=== PATIENT | male | born 1945 | race Caucasian/White ===

== ENCOUNTER 2016-01-11 15:39 | Inpatient (IN) | payer OTHER, MEDICARE ==
[2016-01-11] VITALS (10 sets, daily range): BP systolic 116–195; BP diastolic 62–121; PULSE 106–125; RESP 16–26; TEMP 99.5–100.9; O2SAT 95–97
[~2016-01-11] VITALS: Ht 180.3 cm; Wt 53.6 kg
[~2016-01-11 15:39] MED LIST: COLA100C PO; GLIP5 PO; LORTA5 PO; LOSA100T PO; OMEP20TA PO; PRAV40TA PO
[2016-01-11] MEDS ORDERED: SODIUM CHLOR 0.9% 1000 ML INJ 1,000 ML IV ONE ×2 (15:55)
[2016-01-11] MEDS ORDERED: SODIUM CHLOR 0.9% 1000 ML INJ 100 ML IV ONE (15:55)
[2016-01-11] MEDS ORDERED: ACETAMINOPHEN 325 MG TAB PO ONE (16:00)
--- NOTE | 2016-01-11 16:08 | PD ---
HPI Chief Complaint: Fever Time Seen by Provider: 16:01 Travel History International Travel<30 days: No Contact w/Intl Traveler<30days: No Traveled to known affect area: No History of Present Illness HPI 70-year-old male with history of DM, GERD, neurogenic bladder presents to the ED via EMS for evaluation of fever and hyperglycemia. Patient states his blood sugar was 500 today. He states that he took "80 units" of insulin around 7 AM. Patient denies fever, chills, headache, dizziness, chest pain, palpitations, cough, abdominal pain, nausea, vomiting, diarrhea or constipation, dysuria or back pain. He denies weakness or pain of the extremities. Patient states that he is ambulatory with a walker. Per EMS report the patient was found lying on the floor of his bathroom by a neighbor yesterday. The neighbor reported that the patient said that he was tired so he laid down to rest. Per EMS report the patient temp was 102 orally on their arrival. He received a liter of IV fluids en route. PFSH Past Medical History Cardiovascular Problems: Yes High Cholesterol: Yes Diabetes: Yes GERD: Yes Genitourinary: Yes (NEUROGENIC BLADDER - PT FOR SELF CATH FOR URINE) Hypertension: Yes Musculoskeletal: No Neurologic: No Social History Alcohol Use: No Tobacco Use: Yes (1 PPD) Substance Use: No Allergies-Medications (Allergen,Severity, Reaction): Coded Allergies: No Known Allergies (Verified , 01/11/16) Reported Meds & Prescriptions Reported Meds & Active Scripts Active Reported Losartan (Losartan Potassium) 100 Mg Tab 100 Mg PO DAILY Review of Systems Except as stated in HPI: all other systems reviewed are Neg Physical Exam Narrative GENERAL: Well-nourished, well-developed stoic white male in no acute distress. SKIN: Warm and dry. HEAD: Normocephalic. Atraumatic. No bony step-offs. No tenderness to palpation of the facial bones. EYES: No scleral icterus. No injection or drainage. PERRLA. EOMI. ENT: Pearly woodard tympanic membrane is bilaterally. Nasal mucosa is moist. Oropharynx without erythema, edema or exudate. NECK: Supple, trachea midline. No JVD or lymphadenopathy. No midline tenderness to palpation. Patient retains full, active, painless range of motion of the neck. CARDIOVASCULAR: Regular rate and rhythm without murmurs, gallops, or rubs. 2+ DP and radial pulses bilaterally. RESPIRATORY: Breath sounds clear and equal bilaterally. No accessory muscle use. GASTROINTESTINAL: Abdomen soft, non-tender, nondistended. + Bowel sounds. No palpable masses. Patient is guarding voluntarily. MUSCULOSKELETAL: No cyanosis. 2+ edema of the right leg to the knee. Homans sign positive on the right. Patient also has a small fluid collection just superior to the left knee. No tenderness to palpation of the joint. No limitations to range of motion of the right knee. NEUROLOGICAL: Awake and alert x 5. Cranial nerves II through XII intact. Motor and sensory grossly within normal limits. 5/5 strength in all muscle groups. Normal speech. BACK: Nontender without obvious deformity. No CVA tenderness. No midline tenderness. Data Data Last Documented VS Vital Signs Date Time Temp Pulse Resp B/P Pulse Ox O2 Delivery O2 Flow Rate FiO2 01/11/16 16:04 100.9 01/11/16 16:01 124 24 195/87 95 Room Air 01/11/16 16:00 2.0 Orders Electrocardiogram (01/11/16 15:55) Complete Blood Count With Diff (01/11/16 15:55) Comprehensive Metabolic Panel (01/11/16 15:55) Prothrombin Time / Inr (Pt) (01/11/16 15:55) Act Partial Throm Time (Ptt) (01/11/16 15:55) Lactic Acid Sepsis Protocol (01/11/16 15:55) Magnesium (Mg) (01/11/16 15:55) Lipase (01/11/16 15:55) Ckmb (Isoenzyme) Profile (01/11/16 15:55) Troponin I (01/11/16 15:55) Urinalysis - C+S If Indicated (01/11/16 15:55) Blood Culture (01/11/16 15:55) Chest, Single Ap (01/11/16 15:55) Blood Glucose (01/11/16 15:55) Ecg Monitoring (01/11/16 15:55) Iv Access Insert/Monitor (01/11/16 15:55) Oximetry (01/11/16 15:55) Oxygen Administration (01/11/16 15:55) Acetaminophen (Tylenol) (01/11/16 16:00) Sodium Chlor 0.9% 1000 Ml Inj (Ns 1000 M (01/11/16 15:55) Sodium Chlor 0.9% 1000 Ml Inj (Ns 1000 M (01/11/16 15:55) Sodium Chlor 0.9% 1000 Ml Inj (Ns 1000 M (01/11/16 15:55) Knee, Complete (4vws) (01/11/16 15:55) Us Leg Venous Doppler (01/11/16 16:00) Vancomycin Inj (Vancomycin Inj) (01/11/16 16:09) Piperacil-Tazo 3.375 Gm Premix (Zosyn 3. (01/11/16 16:15) CKMB (01/11/16 16:00) CKMB% (01/11/16 16:00) Arterial Blood Gas (Abg) (01/11/16 ) Beta Hydroxybutyrate (Acetone) (01/11/16 17:23) Calcium Carbonate (Oscal) (01/11/16 18:30) Urinary Catheter Insert/Apply (01/11/16 18:27) Admit Order (Ed Use Only) (01/11/16 18:46) Admit To Inpatient (01/11/16 ) Vital Signs (Adult) Q4H (01/11/16 18:44) Sodium Chlor 0.9% 1000 Ml Inj (Ns 1000 M (01/11/16 18:44) Sodium Chloride 0.9% Flush (Ns Flush) (01/11/16 18:45) Sodium Chloride 0.9% Flush (Ns Flush) (01/11/16 21:00) Acetaminophen (Tylenol) (01/11/16 18:45) Bisacodyl Supp (Dulcolax Supp) (01/11/16 18:45) Magnesium Hydroxide Liq (Milk Of Magnesi (01/11/16 18:45) Complete Blood Count With Diff (01/12/16 06:00) Resp Oxygen Jorge C Titrat 1-4 L (01/11/16 ) Pt Request For Service (01/11/16 18:44) Heparin Inj (Heparin Inj) (01/11/16 20:00) Naloxone Inj (Narcan Inj) (01/11/16 18:45) Inpatient Certification (01/11/16 ) Cefepime Inj (Maxipime Inj) (01/11/16 20:00) Piperacil-Tazo 2.25 Gm Premix (Zosyn 2.2 (01/11/16 22:00) Labs Laboratory Tests Test 01/11/16 01/11/16 01/11/16 16:00 18:04 18:45 White Blood Count 27.6 TH/MM3 Red Blood Count 3.85 MIL/MM3 Hemoglobin 11.6 GM/DL Hematocrit 34.4 % Mean Corpuscular Volume 89.5 FL Mean Corpuscular Hemoglobin 30.1 PG Mean Corpuscular Hemoglobin 33.6 % Concent Red Cell Distribution Width 13.6 % Platelet Count 244 TH/MM3 Mean Platelet Volume 9.4 FL Neutrophils (%) (Auto) % Lymphocytes (%) (Auto) % Monocytes (%) (Auto) % Eosinophils (%) (Auto) % Basophils (%) (Auto) % Neutrophils # (Auto) TH/MM3 Lymphocytes # (Auto) TH/MM3 Monocytes # (Auto) TH/MM3 Eosinophils # (Auto) TH/MM3 Basophils # (Auto) TH/MM3 CBC Comment AUTO DIFF Differential Total Cells 100 Counted Neutrophils % (Manual) 88 % Band Neutrophils % 3 % Lymphocytes % 1 % Monocytes % 8 % Neutrophils # (Manual) 25.1 TH/MM3 Differential Comment FINAL DIFF MANUAL Platelet Estimate NORMAL Platelet Morphology Comment NORMAL Red Cell Morphology Comment NORMAL Prothrombin Time 11.6 SEC Prothromb Time International 1.0 RATIO Ratio Activated Partial 23.5 SEC Thromboplast Time Sodium Level 137 MEQ/L Potassium Level 3.7 MEQ/L Chloride Level 101 MEQ/L Carbon Dioxide Level 20.7 MEQ/L Anion Gap 15 MEQ/L Blood Urea Nitrogen 84 MG/DL Creatinine 3.55 MG/DL Estimat Glomerular Filtration 17 ML/MIN Rate Random Glucose 361 MG/DL Lactic Acid Level 1.8 mmol/L Calcium Level 8.2 MG/DL Magnesium Level 2.5 MG/DL Total Bilirubin 0.5 MG/DL Aspartate Amino Transf 50 U/L (AST/SGOT) Alanine Aminotransferase 54 U/L (ALT/SGPT) Alkaline Phosphatase 103 U/L Total Creatine Kinase 573 U/L Creatine Kinase MB 2.4 NG/ML Creatine Kinase MB % 0.4 % Troponin I 0.07 NG/ML Total Protein 7.4 GM/DL Albumin 2.1 GM/DL Lipase 99 U/L B-Hydroxybutyrate 0.24 MMOL/L Blood Gas Puncture Site LT RADIAL Blood Gas Patient Temperature 98.6 Blood Gas HCO3 19 mmol/L Blood Gas Base Excess -4.6 mmol/L Blood Gas Oxygen Saturation 94 % Arterial Blood pH 7.45 Arterial Blood Partial 27 mmHg Pressure CO2 Arterial Blood Partial 94 mmHG Pressure O2 Arterial Blood Oxygen Content 13.4 Vol % Arterial Blood 1.9 % Carboxyhemoglobin Arterial Blood Methemoglobin 1.7 % Blood Gas Hemoglobin 10.1 G/DL Oxygen Delivery Device ROOM AIR Blood Gas Inspired Oxygen 21 % Urine Color YELLOW Urine Turbidity HAZY Urine pH 6.0 Urine Specific Winkelman 1.015 Urine Protein 100 mg/dL Urine Glucose (UA) 300 mg/dL Urine Ketones NEG mg/dL Urine Occult Blood MOD Urine Nitrite NEG Urine Bilirubin NEG Urine Urobilinogen LESS THAN 2.0 MG/DL Urine Leukocyte Esterase MOD Urine RBC 7 /hpf Urine WBC 38 /hpf Urine Squamous Epithelial <1 /hpf Cells Urine Bacteria MANY /hpf Urine Mucus FEW /lpf Microscopic Urinalysis Comment CATH-CULTURE IND MDM Medical Decision Making Medical Screen Exam Complete: Yes Emergency Medical Condition: Yes Differential Diagnosis Hyperglycemia versus DKA versus sepsis versus UTI versus pneumonia versus dehydration versus electrolyte abnormality versus DVT versus other Narrative Course 70-year-old male with history of DM, GERD, neurogenic bladder presents to the ED via EMS for evaluation of fever and hyperglycemia. Patient states his blood sugar was 500 today. He states that he took "80 units" of insulin around 7 AM. Patient denies fever, chills, headache, dizziness, chest pain, palpitations, cough, abdominal pain, nausea, vomiting, diarrhea or constipation, dysuria or back pain. He denies weakness or pain of the extremities. Patient states that he is ambulatory with a walker. Patient temp 100.9 orally, pulse 125, BP 151/ 121, respiratory rate 24, O2 sats 95%, blood glucose 374 on arrival. Physical exam reveals a chronically ill-appearing stoic white male in no acute distress. Chest clear to auscultation bilaterally. Regular rate and rhythm without appreciable/R/G. Equal pulses in the extremities bilaterally. Abdomen is soft and nondistended. The patient is voluntarily guarding and denies tenderness. There is 2+ edema of the right leg to the knee with positive Homans sign. There is a small fluid collection just superior to the left patella. No tenderness or limitations ROM. The patient is awake, alert, oriented. No focal neural deficits. Normal speech. 5/5 strength. No CVA tenderness. IV fluids were initiated according to sepsis protocol. Patient was administered vancomycin and Zosyn. CBC: WBC 27.6. Hgb 11.6. INR 1.0. Lactic acid: 1.8. CMP: BUN 84, creatinine 3.55. Estimated GFR 17. Calcium 8.2. Replenished orally. Lipase: 99 UA: Moderate occult blood, moderate leukocyte Estrace, 38 WBCs, many bacteria Cardiac enzymes: CK-MB 0.4. Troponin 0.07. EKG rate 106, sinus rhythm. Normal intervals. Normal axis. No ischemic changes. Reviewed by Dr. Gomez. D-dimer: pending Beta hydroxybutyrate: 0.24. Recheck blood glucose: 266 after 3 L NS. Potassium 3.7 ABG: Chronic respiratory alkalosis with metabolic anthony acidosis Chest x-ray shows no acute cardiopulmonary disease. Evidence of old fracture of the left clavicle and left anterior third rib. X-ray of the right knee revealed a small joint effusion. Ultrasound of the right lower extremity: Nonocclusive thrombus in the popliteal vein and perineal tributary. Questionable fluid collection surrounding the femoral bypass graft, CTA recommended. However, given the patient's elevated creatinine the radiopaque dye could cause further injury to the kidney. Vitals improved on recheck. This patient meets severe sepsis criteria. He'll be admitted to the medicine service for further evaluation. I discussed this plan of care with the patient and he is amenable. I spoke with Dr. Monson who agrees to accept the patient to the medicine service. Please see the medicine notes for disposition. Sepsis Criteria SIRS Criteria (2 or more): Temp > 100.9 or < 96.8, Heart rate over 90, RR > 20 or PaCO2 < 32, WBC > 64785, < 4000 or > 10% bands Sepsis Criteria (SIRS+source): Infect source susp/known Severe Sepsis (+one): Acute Oliguria/Renal Failure Criteria Outcome: Meets SIRS criteria, Meets sepsis criteria, Meets severe sepsis criteria Diagnosis Primary Impression: Severe sepsis Additional Impressions: Leukocytosis Qualified Code: D72.829 - Leukocytosis, unspecified type Acute kidney injury Chronic respiratory alkalosis Metabolic acidosis, increased anion gap DVT (deep venous thrombosis) Qualified Code: I82.431 - Deep vein thrombosis (DVT) of popliteal vein of right lower extremity, unspecified chronicity Urinary tract infection Qualified Code: N39.0 - Urinary tract infection with hematuria, site unspecified Admitting Information Admitting Physician Requests: Admit Mandi Garcia Jan 11, 2016 16:08
[2016-01-11] MEDS ORDERED: VANCOMYCIN INJ 1,000 MG in SODIUM CHLOR 0.9% 250 ML INJ 250 ML IV STA (16:09)
[2016-01-11] MEDS ORDERED: PIPERACIL-TAZO 3.375 GM PREMIX 50 ML IV ONE (16:15)
[2016-01-11 16:27] LABS: HEMATOCRIT 34.4 % (39.0-51.0); MEAN CELL VOLUME 89.5 FL (80.0-100.0); MEAN CORPUSCULAR HEMOGLOBIN 30.1 PG (27.0-34.0); MEAN CORPUSCULAR HGB CONC 33.6 % (32.0-36.0); PLATELET COUNT 244 TH/MM3 (150-450); RED BLOOD COUNT 3.85 MIL/MM3 (4.50-5.90); RED CELL DISTRIBUTION WIDTH 13.6 % (11.6-17.2); WHITE BLOOD COUNT 27.6 TH/MM3 (4.0-11.0)
[2016-01-11 16:28] LABS: HEMO FLAGS AUTO DIFF
[2016-01-11 16:36] LABS: APTT (PATIENT) 23.5 SEC (24.3-30.1); PROTHROMBIN TIME - PATIENT 11.6 SEC (9.8-11.6)
[2016-01-11 16:59] LABS: BANDS 3 % (0-6); NEUTROPHIL # MANUAL DIFF 25.1 TH/MM3 (1.8-7.7); PLATELET ESTIMATE SMEAR NORMAL (NORMAL); PLATELET MORPHOLOGY NORMAL (NORMAL); POLYS (SEG NEUTROPHILS) 88 % (16-70); SCAN/DIFF FINAL DIFF MANUAL; WBC DIFF SAMPLE 100
--- NOTE | 2016-01-11 17:02 | RADRPT ---
EXAM DATE/TIME: 01/11/2016 16:40 [facility] COMPARISON: No previous studies available for comparison. INDICATIONS : Pain, fever, and shortness of breath. MEDICAL HISTORY : Diabetes mellitus type II. SURGICAL HISTORY : ENCOUNTER: Initial ACUITY: 2 weeks PAIN SCORE: 4/10 LOCATION: Bilateral chest FINDINGS: The lungs are clear without infiltrate, nodule, or mass. There is no appreciable pleural effusion fo r technique. Heart and mediastinum are unremarkable. There is old healed left clavicular fracture an d probable old healed fracture of the right anterior third rib. CONCLUSION: No acute cardiopulmonary disease. Jessica Blackburn MD on January 11, 2016 at 16:59 Board Certified Radiologist. This report was verified electronically.
[2016-01-11 17:03] LABS: ALT (GPT) 54 U/L (12-78); ANION GAP 15 MEQ/L (5-15); AST (GOT) 50 U/L (15-37); BICARBONATE 20.7 MEQ/L (21.0-32.0); BLOOD UREA NITROGEN 84 MG/DL (7-18); CHLORIDE 101 MEQ/L (98-107); GLOMERULAR FILTRATION RATE 17 ML/MIN (>89); MAGNESIUM 2.5 MG/DL (1.5-2.5); POTASSIUM 3.7 MEQ/L (3.5-5.1); SODIUM (NA) 137 MEQ/L (136-145)
[2016-01-11 17:04] LABS: ALKALINE PHOSPHATASE 103 U/L (45-117); CREATINE KINASE 573 U/L (39-308); TOTAL BILIRUBIN ADULT 0.5 MG/DL (0.2-1.0)
--- NOTE | 2016-01-11 17:05 | RADRPT ---
EXAM DATE/TIME: 01/11/2016 16:43 [facility] COMPARISON: No previous studies available for comparison. INDICATIONS : Pain and swelling. MEDICAL HISTORY : Diabetes mellitus type II. SURGICAL HISTORY : Stent. ENCOUNTER: Initial ACUITY: 2 weeks PAIN SCORE: 4/10 LOCATION: Right knee. FINDINGS: No definite fractures, dislocations, lytic, or sclerotic lesions are seen. Chronic atherosclerotic ca lcifications are seen involving the visualized arteries with a stent within the superficial femoral a rtery. Small joint effusion is seen with a spur at the attachment site of the quadriceps tendon on th e patella. CONCLUSION: Small joint effusion. Jessica Blackburn MD on January 11, 2016 at 17:02 Board Certified Radiologist. This report was verified electronically.
[2016-01-11 17:18] LABS: CKMB 2.4 NG/ML (0.5-3.6)
[2016-01-11] MEDS ORDERED: LOSA100T PO ×2 (18:08→20:43)
[2016-01-11 18:14] LABS: BLOOD GAS BASE EXCESS -4.6 mmol/L (-2-2); BLOOD GAS CARBOXYHEMOGLOBIN 1.9 % (0-4); BLOOD GAS HCO3 19 mmol/L (22-26); BLOOD GAS METHEMOGLOBIN 1.7 % (0-2); BLOOD GAS O2 HGB SATURATION 94 % (90-100); BLOOD GAS OXYGEN CONTENT 13.4 Vol % (12.0-20.0); BLOOD GAS PCO2 27 mmHg (38-42); BLOOD GAS PO2 94 mmHG (61-120); BLOOD GAS TOTAL HGB 10.1 G/DL (12.0-16.0); CRITICAL VALUE NO; DRAW SITE LT RADIAL; FIO2 21 %; NUMBER OF ARTERIAL PUNCTURES 2; OXYGEN DEVICE ROOM AIR; STAT YES; TEMP CORR TO 98.6
--- NOTE | 2016-01-11 18:19 | RADRPT ---
EXAM DATE/TIME: 01/11/2016 17:13 [facility] COMPARISON: CT ABDOMEN & PELVIS W/O CONTRAST, September 25, 2014, 18:26. INDICATIONS : Right leg pain. MEDICAL HISTORY : Hypercholesterolemia. Hypertension. Gastroesophageal reflux disease. Neurogenic bladder. Diabetes. SURGICAL HISTORY : Right leg arterial stent. ENCOUNTER: Initial ACUITY: 3 days PAIN SCORE: 4/10 LOCATION: Right leg. COMPLETE APPROPRIATE ITEMS PRE PROCEDURE: ID x 2: Complete NameDate of BirthEducation: Nurse/Technologist explained procedure to patient/fami ly. Patient/family demonstrated understanding of procedure. TECHNIQUE: Venous ultrasound of the leg was performed from the inguinal ligament to the proximal calf. Real-chong e, color Doppler and spectral tracing, compression and augmentation techniques were used. FINDINGS: The popliteal and peroneal veins are incompletely compressible but there is preserved venous flow thr ough both areas. More central portions of the deep venous system are sonographically normal. There is an unusual appearance to the vascularity in the right groin region. Patient appears to have a central covered stent or graft surrounded by either a thrombosed aneurysm or regional fluid. I have no prior cross-sectional images for comparison. CONCLUSION: 1. Nonocclusive thrombus in the popliteal vein and peroneal tributary. More central venous system is sonographically normal. 2. Tube like graft/stent in the right groin region with a surrounding hypoechoic region which does no t show color Doppler flow. Diagnostic considerations include a thrombosed aneurysm treated with a cov ered stent/graft versus fluid around the regional vasculature. The latter would be concerning for pos sible perivascular infection. If patient's symptomatology is characteristic of an infectious or infla mmatory process, CTA of the pelvis would be recommended for further characterization.. Carroll Arteaga MD on January 11, 2016 at 18:09 Board Certified Radiologist. This report was verified electronically.
[2016-01-11] MEDS ORDERED: CALCIUM CARBONATE 1.25 GM (CA 500 MG) TAB PO ONE (18:30)
[2016-01-11] MEDS ORDERED: NALOXONE HCL 0.4 MG/ML AMP IV PRN (18:45)
[2016-01-11] MEDS ORDERED: MAGNESIUM HYDROXIDE SUSP 30 ML CUP PO PRN (18:45)
[2016-01-11] MEDS ORDERED: BISACODYL 10 MG SUPP PR PRN (18:45)
[2016-01-11] MEDS: SODIUM CHLOR 0.9% 1000 ML INJ 1,000 ML IV SCH (18:57)
[2016-01-11] MEDS ORDERED: Vancomycin Consult Pharmacy 1 EA OTHER SCH (19:00)
[2016-01-11] MEDS ORDERED: DEXTROSE 50% IN WATER 50 ML VIAL(D50) IV PUSH PRN (19:00)
[2016-01-11] MEDS ORDERED: GLUCAGON 1 MG/ML VIAL OTHER PRN (19:00)
--- NOTE | 2016-01-11 19:10 | HHI.HP ---
[facility] Physician Evelina Dahl MD Admission Diagnosis severe sepsis, ADONIS, respiratory alkalosis, hyperglycemia, DVT Diagnoses: (1) Sepsis Diagnosis: Principal (2) UTI (urinary tract infection) Diagnosis: Principal (3) Neurogenic bladder Diagnosis: Principal (4) Acute on chronic renal insufficiency Diagnosis: Principal (5) Rhabdomyolysis Diagnosis: Principal (6) Elevated troponin Diagnosis: Principal (7) DVT (deep venous thrombosis) Diagnosis: Principal (8) DM (diabetes mellitus) Diagnosis: Principal Travel History International Travel<30 Days: No Contact w/Intl Traveler <30 Da: No Traveled to Known Affected Are: No History of Present Illness This is a 70-year-old male with a PMH of HTN, DM, Hyperlipidemia and Neurogenic Bladder w/ Self Catheterization who was brought to the ER by EMS for c/o fever and elevated BS of 500 at home. States he checked his blood sugar at approx 7am and took 80 units of Insulin. Denies cough, nausea, vomiting, abdominal pain or diarrhea. Reports some RLE swelling which is chronic, however increased in the last 2-3 days, some right knee discomfort. Per EMS, pt was found lying on his bathroom floor by neighbors yesterday, did not seek medical attention at that time. Temp 102.0 en route to ER. On arrival, BP 151/121, HR 125, O2 sat 96% on RA, Temp 100.9. WBC 27.6 with elevated neutrophil count. Creatinine 3.55, producing 1.44 on 09/28/14. CPK 573. Troponin 0.07. U/a positive for UTI. EKG with no acute findings. CXR w/ no acute findings. Right Knee X-ray w/ small joint effusion. RLE Doppler w/ non-occlusive DVT of popliteal and peroneal tributary, tubelike graft/stent in right groin with surrounding hypoechoic region, possibly thrombosed aneurysm versus fluid around regional vasculature, CTA Pelvis recommended, however unable to proceed due to renal function. Of note, pt w/ recent hospitalization to for Sepsis, pt unable to provide many details but states his WBC count was 35 at that time. S/ p Blood/Urine Cultures x2, Vanc/Zosyn in ER. Review of Systems Other ROS: 14 point review of systems otherwise negative. Past Family Social History Past Medical History PMH: HTN, DM, Hyperlipidemia and Neurogenic Bladder w/ Self Catheterization Past Surgical History PAST SURGICAL HISTORY: RLE Stent Allergies: Coded Allergies: No Known Allergies (Verified , 01/11/16) Family History PAST FAMILY HISTORY: Reviewed. No h/o DM or CAD Social History PAST SOCIAL HISTORY: Negative for alcohol, tobacco or drugs. Physical Exam Vital Signs Vital Signs Date Time Temp Pulse Resp B/P Pulse Ox O2 Delivery O2 Flow Rate FiO2 01/11/16 19:01 106 24 120/62 95 Room Air 01/11/16 18:55 95 21 01/11/16 18:49 106 26 140/81 96 Room Air 01/11/16 18:49 99.5 01/11/16 16:04 100.9 01/11/16 16:01 124 24 195/87 95 Room Air 01/11/16 16:00 Nasal Cannula 2.0 01/11/16 16:00 95 Room Air 01/11/16 15:57 124 20 151/121 96 Room Air 01/11/16 15:46 125 23 151/121 96 Physical Exam PE: GENERAL: Thin, elderly white male in no acute distress. Slightly disheveled. HEENT: PERRLA, EOMI. No scleral icterus or conjunctival pallor. No lid lag or facial droop. CARDIOVASCULAR: Regular rate and rhythm. No obvious murmurs to auscultation. No chest tenderness to palpation. RESPIRATORY: No obvious rhonchi or wheezing. Clear to auscultation. Breath sounds equal bilaterally. GASTROINTESTINAL: Abdomen soft, non-tender, nondistended. BS normal. MUSCULOSKELETAL: RLE w/ 1-2 +pitting edema up to knee, previous healed scar, no signs of infection. Pulses intact. NEUROLOGICAL: Awake, alert and oriented x4. No focal neurologic deficits. Moving both upper and lower extremities spontaneously. Laboratory Laboratory Tests Test 01/11/16 01/11/16 16:00 18:04 White Blood Count 27.6 Red Blood Count 3.85 Hemoglobin 11.6 Hematocrit 34.4 Mean Corpuscular Volume 89.5 Mean Corpuscular Hemoglobin 30.1 Mean Corpuscular Hemoglobin 33.6 Concent Red Cell Distribution Width 13.6 Platelet Count 244 Mean Platelet Volume 9.4 Neutrophils (%) (Auto) Lymphocytes (%) (Auto) Monocytes (%) (Auto) Eosinophils (%) (Auto) Basophils (%) (Auto) Neutrophils # (Auto) Lymphocytes # (Auto) Monocytes # (Auto) Eosinophils # (Auto) Basophils # (Auto) CBC Comment AUTO DIFF Differential Total Cells 100 Counted Neutrophils % (Manual) 88 Band Neutrophils % 3 Lymphocytes % 1 Monocytes % 8 Neutrophils # (Manual) 25.1 Differential Comment FINAL DIFF MANUAL Platelet Estimate NORMAL Platelet Morphology Comment NORMAL Red Cell Morphology Comment NORMAL Prothrombin Time 11.6 Prothromb Time International 1.0 Ratio Activated Partial 23.5 Thromboplast Time Sodium Level 137 Potassium Level 3.7 Chloride Level 101 Carbon Dioxide Level 20.7 Anion Gap 15 Blood Urea Nitrogen 84 Creatinine 3.55 Estimat Glomerular Filtration 17 Rate Random Glucose 361 Lactic Acid Level 1.8 Calcium Level 8.2 Magnesium Level 2.5 Total Bilirubin 0.5 Aspartate Amino Transf 50 (AST/SGOT) Alanine Aminotransferase 54 (ALT/SGPT) Alkaline Phosphatase 103 Total Creatine Kinase 573 Creatine Kinase MB 2.4 Creatine Kinase MB % 0.4 Troponin I 0.07 Total Protein 7.4 Albumin 2.1 Lipase 99 Blood Gas Puncture Site LT RADIAL Blood Gas Patient Temperature 98.6 Blood Gas HCO3 19 Blood Gas Base Excess -4.6 Blood Gas Oxygen Saturation 94 Arterial Blood pH 7.45 Arterial Blood Partial 27 Pressure CO2 Arterial Blood Partial 94 Pressure O2 Arterial Blood Oxygen Content 13.4 Arterial Blood 1.9 Carboxyhemoglobin Arterial Blood Methemoglobin 1.7 Blood Gas Hemoglobin 10.1 Oxygen Delivery Device ROOM AIR Blood Gas Inspired Oxygen 21 Date/Time Procedure Status Source Growth 01/11/16 16:05 Aerobic Blood Culture Received Blood Peripheral Pending 01/11/16 16:05 Anaerobic Blood Culture Received Blood Peripheral Pending Result Diagram: 01/11/16 1600 01/11/16 1600 Assessment and Plan Problem List: (1) Sepsis ICD Code: A41.9 Status: Resolved (2) UTI (urinary tract infection) ICD Code: N39.0 Status: Acute (3) Neurogenic bladder ICD Code: N31.9 Status: Acute (4) Acute on chronic renal insufficiency ICD Code: N28.9 Status: Acute (5) Rhabdomyolysis ICD Code: M62.82 Status: Acute (6) Elevated troponin ICD Code: R79.89 Status: Acute (7) DVT (deep venous thrombosis) ICD Code: I82.409 Status: Acute (8) DM (diabetes mellitus) ICD Code: E11.9 Status: Chronic Assessment and Plan A/P: 1. Sepsis: Temp 102.0 in field, HR 120's, WBC 27.6, Source-UTI. CXR negative , images reviewed by me. S/p Blood/Urine Cultures, IV Vanc/Zosyn. Recent admit at for Sepsis, pt unable to provide further details, except states WBC was 35. Follow up cultures, continue IV Vanc/Cefepime. 2. UTI: U/a positive for UTI. +self catheterization. Will continue w/ IV Abx , IVF. 3. Neurogenic Bladder: Self catheterization as needed. 4. Acute on Chronic Renal Insufficiency: Creatinine 3.55, previously 1.44 on . IVF for hydration, U/a positive for UTI, continue IV Abx, repeat labs in am. 5. Rhabdomyolysis: CPK 573, IVF for hydration, check serial CPK for trend. Per EMS, pt found lying on bathroom floor by neighbor yesterday, pt denies any trauma, states he was tired and just wanted to lie down. 6. Elevated Trop: Trop 0.07, EKG w/ no acute changes. Likely secondary to worsening renal function rather than cardiac etiology, however will r/o ACS. Check serial cardiac enzymes. 7. DM: Uncontrolled. Likely due to Sepsis. Check Hgb A1c, Sliding scale w/ Accu-Cheks. 8. RLE DVT: Doppler w/ non-occlusive DVT of popliteal and peroneal tributary, started on Heparin gtt in ER. Also noted to have right graft/stent w/ surrounding hypoechoic region, possibly thrombosed aneurysm vs perivascular infection, recommendation for CTA Pelvis, however unable to obtain secondary to renal function. No tenderness to palpation. Continue w/ broad spectrum antibiotics as above. CTA Pelvis possible only if renal function improves. 9. DVT Prophylaxis: As above, started on Heparin gtt 10. Social work for d/c planning as needed. 11. Case discussed w/ ER physician at length. Physician Certification 2 Midnight Certification Type: Admission for Inpatient Services Order for Inpatient Services The services are ordered in accordance with Medicare regulations or non- Medicare payer requirements, as applicable. In the case of services not specified as inpatient-only, they are appropriately provided as inpatient services in accordance with the 2-midnight benchmark. Estimated LOS (days): 2 days is the estimated time the patient will need to remain in the hospital, assuming treatment plan goals are met and no additional complications. Post-Hospital Plan: Not yet determined Problem Qualifiers (1) DVT (deep venous thrombosis): Qualified Code: I82.431 - Deep vein thrombosis (DVT) of popliteal vein of right lower extremity, unspecified chronicity Mica Peguero MD Jan 11, 2016 19:10
[2016-01-11 19:11] LABS: BACTERIA, URINE MANY /hpf; BLOOD, URINE MOD (NEG); GLUCOSE,URINE 300 mg/dL (NEG); KETONE, URINE NEG (NEG); MUCUS URINE FEW /lpf (OCC); NITRITE,URINE NEG (NEG); SQUAMOUS EPITHELIAL CELL URINE <1 /hpf (0-5); URINE COLOR YELLOW (YELLW/STRAW)
[2016-01-11 19:12] LABS: COMMENT (UR) CATH-CULTURE IND; CULTURE IF INDICATED CATH CULTURE IND
[2016-01-11] MEDS ORDERED: HEPARIN SODIUM - IV 10,000 UNITS/10 ML VIAL IV ONE (19:15)
--- NOTE | 2016-01-11 19:19 | PD ---
Data Data Last Documented VS Vital Signs Date Time Temp Pulse Resp B/P Pulse Ox O2 Delivery O2 Flow Rate FiO2 01/11/16 16:04 100.9 01/11/16 16:01 124 24 195/87 95 Room Air 01/11/16 16:00 2.0 Orders Electrocardiogram (01/11/16 15:55) Complete Blood Count With Diff (01/11/16 15:55) Comprehensive Metabolic Panel (01/11/16 15:55) Prothrombin Time / Inr (Pt) (01/11/16 15:55) Act Partial Throm Time (Ptt) (01/11/16 15:55) Lactic Acid Sepsis Protocol (01/11/16 15:55) Magnesium (Mg) (01/11/16 15:55) Lipase (01/11/16 15:55) Ckmb (Isoenzyme) Profile (01/11/16 15:55) Troponin I (01/11/16 15:55) Urinalysis - C+S If Indicated (01/11/16 15:55) Blood Culture (01/11/16 15:55) Chest, Single Ap (01/11/16 15:55) Blood Glucose (01/11/16 15:55) Ecg Monitoring (01/11/16 15:55) Iv Access Insert/Monitor (01/11/16 15:55) Oximetry (01/11/16 15:55) Oxygen Administration (01/11/16 15:55) Acetaminophen (Tylenol) (01/11/16 16:00) Sodium Chlor 0.9% 1000 Ml Inj (Ns 1000 M (01/11/16 15:55) Sodium Chlor 0.9% 1000 Ml Inj (Ns 1000 M (01/11/16 15:55) Sodium Chlor 0.9% 1000 Ml Inj (Ns 1000 M (01/11/16 15:55) Knee, Complete (4vws) (01/11/16 15:55) Us Leg Venous Doppler (01/11/16 16:00) Vancomycin Inj (Vancomycin Inj) (01/11/16 16:09) Piperacil-Tazo 3.375 Gm Premix (Zosyn 3. (01/11/16 16:15) CKMB (01/11/16 16:00) CKMB% (01/11/16 16:00) Arterial Blood Gas (Abg) (01/11/16 ) Beta Hydroxybutyrate (Acetone) (01/11/16 17:23) Calcium Carbonate (Oscal) (01/11/16 18:30) Urinary Catheter Insert/Apply (01/11/16 18:27) Admit Order (Ed Use Only) (01/11/16 18:46) Admit To Inpatient (01/11/16 ) Vital Signs (Adult) Q4H (01/11/16 18:44) Sodium Chlor 0.9% 1000 Ml Inj (Ns 1000 M (01/11/16 18:44) Sodium Chloride 0.9% Flush (Ns Flush) (01/11/16 18:45) Sodium Chloride 0.9% Flush (Ns Flush) (01/11/16 21:00) Acetaminophen (Tylenol) (01/11/16 18:45) Bisacodyl Supp (Dulcolax Supp) (01/11/16 18:45) Magnesium Hydroxide Liq (Milk Of Magnesi (01/11/16 18:45) Complete Blood Count With Diff (01/12/16 06:00) Resp Oxygen Jorge C Titrat 1-4 L (01/11/16 ) Pt Request For Service (01/11/16 18:44) Heparin Inj (Heparin Inj) (01/11/16 20:00) Naloxone Inj (Narcan Inj) (01/11/16 18:45) Inpatient Certification (01/11/16 ) Cefepime Inj (Maxipime Inj) (01/11/16 20:00) Piperacil-Tazo 2.25 Gm Premix (Zosyn 2.2 (01/11/16 22:00) Labs Laboratory Tests Test 01/11/16 01/11/16 01/11/16 16:00 18:04 18:45 White Blood Count 27.6 TH/MM3 Red Blood Count 3.85 MIL/MM3 Hemoglobin 11.6 GM/DL Hematocrit 34.4 % Mean Corpuscular Volume 89.5 FL Mean Corpuscular Hemoglobin 30.1 PG Mean Corpuscular Hemoglobin 33.6 % Concent Red Cell Distribution Width 13.6 % Platelet Count 244 TH/MM3 Mean Platelet Volume 9.4 FL Neutrophils (%) (Auto) % Lymphocytes (%) (Auto) % Monocytes (%) (Auto) % Eosinophils (%) (Auto) % Basophils (%) (Auto) % Neutrophils # (Auto) TH/MM3 Lymphocytes # (Auto) TH/MM3 Monocytes # (Auto) TH/MM3 Eosinophils # (Auto) TH/MM3 Basophils # (Auto) TH/MM3 CBC Comment AUTO DIFF Differential Total Cells 100 Counted Neutrophils % (Manual) 88 % Band Neutrophils % 3 % Lymphocytes % 1 % Monocytes % 8 % Neutrophils # (Manual) 25.1 TH/MM3 Differential Comment FINAL DIFF MANUAL Platelet Estimate NORMAL Platelet Morphology Comment NORMAL Red Cell Morphology Comment NORMAL Prothrombin Time 11.6 SEC Prothromb Time International 1.0 RATIO Ratio Activated Partial 23.5 SEC Thromboplast Time Sodium Level 137 MEQ/L Potassium Level 3.7 MEQ/L Chloride Level 101 MEQ/L Carbon Dioxide Level 20.7 MEQ/L Anion Gap 15 MEQ/L Blood Urea Nitrogen 84 MG/DL Creatinine 3.55 MG/DL Estimat Glomerular Filtration 17 ML/MIN Rate Random Glucose 361 MG/DL Lactic Acid Level 1.8 mmol/L Calcium Level 8.2 MG/DL Magnesium Level 2.5 MG/DL Total Bilirubin 0.5 MG/DL Aspartate Amino Transf 50 U/L (AST/SGOT) Alanine Aminotransferase 54 U/L (ALT/SGPT) Alkaline Phosphatase 103 U/L Total Creatine Kinase 573 U/L Creatine Kinase MB 2.4 NG/ML Creatine Kinase MB % 0.4 % Troponin I 0.07 NG/ML Total Protein 7.4 GM/DL Albumin 2.1 GM/DL Lipase 99 U/L B-Hydroxybutyrate 0.24 MMOL/L Blood Gas Puncture Site LT RADIAL Blood Gas Patient Temperature 98.6 Blood Gas HCO3 19 mmol/L Blood Gas Base Excess -4.6 mmol/L Blood Gas Oxygen Saturation 94 % Arterial Blood pH 7.45 Arterial Blood Partial 27 mmHg Pressure CO2 Arterial Blood Partial 94 mmHG Pressure O2 Arterial Blood Oxygen Content 13.4 Vol % Arterial Blood 1.9 % Carboxyhemoglobin Arterial Blood Methemoglobin 1.7 % Blood Gas Hemoglobin 10.1 G/DL Oxygen Delivery Device ROOM AIR Blood Gas Inspired Oxygen 21 % Urine Color YELLOW Urine Turbidity HAZY Urine pH 6.0 Urine Specific [place] 1.015 Urine Protein 100 mg/dL Urine Glucose (UA) 300 mg/dL Urine Ketones NEG mg/dL Urine Occult Blood MOD Urine Nitrite NEG Urine Bilirubin NEG Urine Urobilinogen LESS THAN 2.0 MG/DL Urine Leukocyte Esterase MOD Urine RBC 7 /hpf Urine WBC 38 /hpf Urine Squamous Epithelial <1 /hpf Cells Urine Bacteria MANY /hpf Urine Mucus FEW /lpf Microscopic Urinalysis Comment CATH-CULTURE IND MDM Supervised Visit with SOCRATES: Yes Narrative Course I, Dr. Gomez, have reviewed the advance practice practitioner's documentation and am in agreement, met with the patient face to face, made the diagnosis, and the medical decision making was done by me. *My assessment and Findings: Patient initially tachycardic and tachypneic on arrival. Very dark purulent urine. Patient does self catheter at home. Family arrives and states the patient doesn't take very good care of himself and probably is not straight cathetering cleanly. He does meet SIRS criteria him started on vancomycin and Zosyn. Patient also does have an elevated creatinine. He was given 30 cc per KG bolus. This includes a 1 L bolus he received from EMS prior to arrival. Patient does have some right lower extremity swelling and had ultrasound of the lower extremity, he also has a history of aortobifem and there is possible clot in the aorta. Given his level of kidney failure I recommended that we heparinize him rather than jeopardize his kidneys further with the CTA with runoff. He is agreeable to this after discussing the risks versus benefits. Will be admitted to Dr. Peguero. Patient's vital signs improved significantly while in the emergency department. Diagnosis Primary Impression: Severe sepsis Additional Impressions: Acute kidney injury Metabolic acidosis, increased anion gap Leukocytosis Qualified Code: D72.829 - Leukocytosis, unspecified type DVT (deep venous thrombosis) Qualified Code: I82.431 - Deep vein thrombosis (DVT) of popliteal vein of right lower extremity, unspecified chronicity Chronic respiratory alkalosis Disposition: 01 DISCHARGE HOME Condition: Jeremie Richardson MD Jan 11, 2016 19:19
[2016-01-11] MEDS: HEPARIN-D5W INJ 250 ML IV SCH (19:57)
[2016-01-11] MEDS ORDERED: HEPARIN SODIUM - SQ 10,000 UNITS/ML VIAL SQ SCH (20:00)
[2016-01-11] MEDS ORDERED: OMEP20TA PO (20:33)
[2016-01-11] MEDS ORDERED: ATOR40TA16 PO (20:43)
[2016-01-11] MEDS ORDERED: TRAM50TA PO (20:43)
[2016-01-11] MEDS ORDERED: HYDR-3516 PO (20:43)
[2016-01-11] MEDS ORDERED: BACL20TA PO (20:43)
[2016-01-11] MEDS ORDERED: ASPI81TA19 (20:43)
[2016-01-11] MEDS ORDERED: ONDA1TAB16 PO (20:43)
[2016-01-11] MEDS ORDERED: CLOP75TA PO (20:43)
[2016-01-11] MEDS ORDERED: EPCLUSA PO (20:43)
[2016-01-11] MEDS ORDERED: LORA10TA PO (20:43)
[2016-01-11] MEDS ORDERED: RANI150C PO (20:43)
[2016-01-11] MEDS ORDERED: PRAV40TA2 PO (20:43)
[2016-01-11] MEDS ORDERED: VANCOMYCIN 1,000 MG/NS 250 ML IV ONE ×2 (21:00)
[2016-01-11] MEDS: SODIUM CHLORIDE 0.9% FLUSH 5 ML FLUSH FLUSH SCH (21:00)
[2016-01-11] MEDS: CEFEPIME INJ 2,000 MG in SODIUM CHLORIDE 0.9% INJ 100 ML IV SCH (21:21)
[2016-01-11] MEDS: INSULIN ASPART SUPPLEMENTAL SCALE SQ SCH (21:45)
[2016-01-11] MEDS ORDERED: PIPERACIL-TAZO 2.25 GM PREMIX 50 ML IV SCH (22:00)
[2016-01-12] VITALS (7 sets, daily range): BP systolic 133–164; BP diastolic 73–81; PULSE 94–130; RESP 17–20; TEMP 98.4–102; O2SAT 93–97
[2016-01-12] MEDS: ACETAMINOPHEN/HYDROcodone 325 MG/5 MG TAB PO PRN (00:15)
[2016-01-12] MEDS ORDERED: HEPARIN SODIUM - IV 10,000 UNITS/10 ML VIAL IV PRN ×2 (01:15)
[2016-01-12 01:53] LABS: APTT (PATIENT) 39.7 SEC (24.3-30.1)
[2016-01-12 02:23] LABS: CKMB 2.8 NG/ML (0.5-3.6)
[2016-01-12] MEDS: SODIUM CHLOR 0.9% 1000 ML INJ 1,000 ML IV SCH ×2 (04:44→15:46)
[2016-01-12 06:33] LABS: AUTOMATED NEUTROPHIL # 20.7 TH/MM3 (1.8-7.7); BASOPHIL # 0.1 TH/MM3 (0-0.2); BASOPHIL % 0.3 % (0.0-2.0); HEMATOCRIT 29.8 % (39.0-51.0); HEMO FLAGS DIFF FINAL; LYMPH % 3.3 % (9.0-44.0); LYMPHOCYTE # 0.7 TH/MM3 (1.0-4.8); MEAN CELL VOLUME 88.7 FL (80.0-100.0); MEAN CORPUSCULAR HEMOGLOBIN 29.3 PG (27.0-34.0); MONO % 3.9 % (0.0-8.0); NEUT % 92.5 % (16.0-70.0); PLATELET COUNT 191 TH/MM3 (150-450); RED BLOOD COUNT 3.36 MIL/MM3 (4.50-5.90); RED CELL DISTRIBUTION WIDTH 13.7 % (11.6-17.2); WHITE BLOOD COUNT 22.3 TH/MM3 (4.0-11.0)
[2016-01-12] MEDS: INSULIN ASPART SUPPLEMENTAL SCALE SQ SCH ×4 (06:35→20:23)
[2016-01-12 07:02] LABS: ALKALINE PHOSPHATASE 77 U/L (45-117); ALT (GPT) 50 U/L (12-78); ANION GAP 13 MEQ/L (5-15); AST (GOT) 54 U/L (15-37); BICARBONATE 21.4 MEQ/L (21.0-32.0); BLOOD UREA NITROGEN 68 MG/DL (7-18); CHLORIDE 110 MEQ/L (98-107); CREATINE KINASE 569 U/L (39-308); GLOMERULAR FILTRATION RATE 23 ML/MIN (>89); SODIUM (NA) 144 MEQ/L (136-145); TOTAL BILIRUBIN ADULT 0.5 MG/DL (0.2-1.0)
[2016-01-12 07:06] LABS: POTASSIUM 2.8 MEQ/L (3.5-5.1)
[2016-01-12 07:23] LABS: CKMB 2.9 NG/ML (0.5-3.6)
--- NOTE | 2016-01-12 07:47 | HHI.PR ---
Subjective Remarks Pt initially tells me he feels ok then when I ask if he has any pain, he says yes then when asked where he cannot tell me, he at some point mentions his neck but states its not bad. He doesn't move his left arm much and when I try he says it hurts. I palpated his shoulder and he says it hurt. Every time I ask a questions he says "yes tommy". when asked to sit up for me to examine his lungs, he doesn't move much but with some assistance is able to do so. When asked if he has any chest pain or SOB, he says not, denies any nausea or vomiting. Objective Vitals Vital Signs Date Time Temp Pulse Resp B/P Pulse Ox O2 Delivery O2 Flow Rate FiO2 01/12/16 04:00 99.2 94 17 142/81 97 01/12/16 00:00 101.0 117 19 164/79 97 01/11/16 22:50 100.9 112 19 156/75 97 01/11/16 21:00 100.0 113 16 116/86 97 01/11/16 19:01 106 24 120/62 95 Room Air 01/11/16 18:55 95 21 01/11/16 18:49 106 26 140/81 96 Room Air 01/11/16 18:49 99.5 01/11/16 16:04 100.9 01/11/16 16:01 124 24 195/87 95 Room Air 01/11/16 16:00 Nasal Cannula 2.0 01/11/16 16:00 95 Room Air 01/11/16 15:57 124 20 151/121 96 Room Air 01/11/16 15:46 125 23 151/121 96 I/O 01/11/16 01/11/16 01/11/16 01/12/16 01/12/16 01/12/16 06:59 14:59 22:59 06:59 14:59 22:59 Intake Total 2100 ml 1742 ml Output Total 1000 ml 900 ml Balance 1100 ml 842 ml Intake Oral 100 ml IV Total 2100 ml 1642 ml Output Urine Total 1000 ml 900 ml # Bowel Movements 0 0 Result Diagram: 01/12/1640 01/12/1640 Objective Remarks GENERAL: Thin, elderly white male in no acute distress. Slightly disheveled. HEENT: PERRLA, EOMI. No scleral icterus or conjunctival pallor. CARDIOVASCULAR: Regular rate and rhythm. No obvious murmurs to auscultation. No chest tenderness to palpation. RESPIRATORY: No obvious rhonchi or wheezing. Clear to auscultation. Breath sounds equal bilaterally. GASTROINTESTINAL: Abdomen soft, non-tender, nondistended. BS normal. MUSCULOSKELETAL: RLE w/ 1-2 +pitting edema up to knee, previous healed scar, no signs of infection. Pulses intact. NEUROLOGICAL: Awake, alert and oriented, however doesn't really speak much and answers mostly w "yes tommy". He appears to be cautious w his left upper extremity but when I lift his arm he is able to resist and do some pulling w minimal discomfort. He does complain of pain w palpation at the left shoulder but no swelling is noted. A/P Problem List: (1) Sepsis ICD Code: A41.9 Status: Resolved (2) UTI (urinary tract infection) ICD Code: N39.0 Status: Acute (3) Neurogenic bladder ICD Code: N31.9 Status: Acute (4) Acute on chronic renal insufficiency ICD Code: N28.9 Status: Acute (5) Rhabdomyolysis ICD Code: M62.82 Status: Acute (6) Elevated troponin ICD Code: R79.89 Status: Acute (7) DVT (deep venous thrombosis) ICD Code: I82.409 Status: Acute (8) DM (diabetes mellitus) ICD Code: E11.9 Status: Chronic Assessment and Plan 1. Sepsis: Temp 102.0 in field, HR 120's, WBC 27.6, Source-UTI. CXR negative , images reviewed by me. S/p Blood/Urine Cultures, IV Vanc/Zosyn. Recent admit at for Sepsis, pt unable to provide further details, except states WBC was 35. Follow up cultures, continue IV Vanc/Cefepime. obtain records from 2. UTI: U/a positive for UTI. +self catheterization. Will continue w/ IV Abx , IVF. 3. Neurogenic Bladder: Self catheterization as needed. 4. Acute on Chronic Renal Insufficiency: Creatinine 3.55 on admission, improving, previously 1.44 on 09/28/14. IVF for hydration, U/a positive for UTI , continue IV Abx, repeat labs in am. 5. Rhabdomyolysis: CPK 573, IVF for hydration, check serial CPK for trend. Per EMS, pt found lying on bathroom floor by neighbor yesterday, pt denies any trauma, states he was tired and just wanted to lie down. Now complaining of left shoulder pain. Will order x-ray of shoulder. PT/OT consulted. 6. Elevated Trop: Trop 0.07, EKG w/ no acute changes. Likely secondary to worsening renal function rather than cardiac etiology, however will r/o ACS. Pt denies any chest pains whatsoever however, he is a poor historian, serial cardiac enzymes 0.07-->0.13-->0.17. will consult cardiology for further recs. 7. DM: Uncontrolled. Likely due to Sepsis. Hgb A1c pending, Sliding scale w / Accu-Cheks. 8. RLE DVT: Doppler w/ non-occlusive DVT of popliteal and peroneal tributary, started on Heparin gtt in ER. Also noted to have right graft/stent w/ surrounding hypoechoic region, possibly thrombosed aneurysm vs perivascular infection, possible source of infection, recommendation for CTA Pelvis, however unable to obtain secondary to renal function. Continue w/ broad spectrum antibiotics as above. CTA Pelvis possible only if renal function improves. Will get an ID consult for further eval as pt is still having fevers and this may also be another source of infection. 9. DVT Prophylaxis: As above, on Heparin gtt Discharge Planning d/c pending further work-up and clinical improvement. Problem Qualifiers (1) DVT (deep venous thrombosis): Qualified Code: I82.431 - Deep vein thrombosis (DVT) of popliteal vein of right lower extremity, unspecified chronicity Graciela Woo MD Jan 12, 2016 07:47
[2016-01-12] MEDS: SODIUM CHLORIDE 0.9% FLUSH 5 ML FLUSH FLUSH SCH ×2 (09:04→20:11)
--- NOTE | 2016-01-12 09:38 | RADRPT ---
EXAM DATE/TIME: 01/12/2016 09:24 [place] COMPARISON: No previous studies available for comparison. INDICATIONS : Left shoulder pain, denies injury MEDICAL HISTORY : None. SURGICAL HISTORY : None. ENCOUNTER: Initial ACUITY: 2 days PAIN SCORE: 0/10 LOCATION: Left shoulder FINDINGS: No acute fracture seen. There is either an old, healed fracture versus hypertrophic degenerative elizabeth ges of the distal end of the left clavicle. I would favor the former as narrowing seems to be mild os teoarthritis of the acromioclavicular joint. There is also mild osteoarthritis of the glenohumeral freddy int, especially along the posterior margin of the glenoid. CONCLUSION: 1. No acute fracture or subluxation of the left shoulder. 2. Probably an old fracture of the distal clavicle, healed. 3. 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 Jayce Ng MD on January 12, 2016 at 9:35 Board Certified Radiologist. This report was verified electronically.
[2016-01-12] MEDS ORDERED: POTASSIUM CHLORIDE 20 MEQ CONTROLLED RELEASE TAB PO ONE (10:00)
--- NOTE | 2016-01-12 10:56 | MB ---
cc: EMILIANA PALAFOX MD DATE OF CONSULTATION: 01/12/2016 REASON FOR CONSULTATION: Abnormal troponin. HISTORY OF PRESENT ILLNESS The patient is a pleasant 70-year-old gentleman with no prior cardiac history who has a history of hypertension, diabetes, hyperlipidemia, neurogenic bladder who was brought by EMS for fever and severely elevated blood sugars. For some reason a troponin was drawn and was elevated though I cannot determine exactly why his troponins were drawn to begin with. This morning the patient is feeling well. He denies any current or prior cardiac symptoms including chest pain, shortness of breath, lightheadedness, dizziness or syncope. PAST MEDICAL HISTORY As above. CURRENT MEDICATIONS Heparin drip. Cefepime. ALLERGIES: NO KNOWN DRUG ALLERGIES. PHYSICAL EXAMINATION VITAL SIGNS: Temperature 98.4 down from 101, pulse 106, respiratory 20, BP 155/73 sating 95% on 2 liters. General: Pleasant well-appearing thin gentleman in no distress. Neck: No JVD. Lungs: Clear auscultation bilaterally. Cardiovascular: Regular rate and rhythm. 3/6 systolic murmur is appreciated loudest at the right upper sternal border. Abdomen: Benign. Extremities: No edema. LABORATORY DATA: Sodium 144, potassium 2.8, chloride 110, bicarb 21.4, BUN 68, creatinine 2.71, down from 3.55. Total CK is 559, with a normal CKMB and CKMB percentage with troponin 0.07, 0.13, 0.17. White count 22.3, down from 27, hematocrit 29.8, platelet count 191. EKG shows sinus tachycardia without an acute ST-T wave change. Lower extremity ultrasound showed nonocclusive thrombus in the popliteal vein. Chest x-ray showed no acute disease. IMPRESSION 1. Abnormal troponin. The patient's minimally abnormal troponin in the setting of renal failure, is extremely nonspecific. He has no chest pain, no cardiac history and his EKG is normal. We will have him undergo a nuclear stress test to exclude significant ischemia, though would likely medically treat given the lack of symptoms. 2. Murmur. The patient does have a significant cardiac murmur, and will obtain an echocardiogram. Further recommendations based on clinical course. Thank you again for asking me to participate in this patient's care. MD MEENA Hernandez /10:30 AM /10:46 AM
[2016-01-12 11:56] LABS: APTT (PATIENT) 52.9 SEC (24.3-30.1)
--- NOTE | 2016-01-12 13:07 | EKG ---
Date Performed: 01/11/2016 Time Performed: 17:07:05 PTAGE: 70 years EKG: SINUS TACHYCARDIA NONSPECIFIC T-WAVE ABNORMALITY Compared to previous tracing, sinus rate h as increased. ABNORMAL RHYTHM ECG PREVIOUS TRACING : 09/27/2014 17.11 DOCTOR: Viraj Velazquez Interpretating Date/Time 01/12/2016 13:06:08
[2016-01-12 13:09] LABS: HEMOGLOBIN A1a 0.7 %; HEMOGLOBIN A1b 2.4 %; HEMOGLOBIN LA1C 2.2 %; HEMOGLOBIN P3 7.1 %
[2016-01-12] MEDS: HEPARIN-D5W INJ 250 ML IV SCH (16:11)
--- NOTE | 2016-01-12 17:40 | PD.ID.CON ---
History of Present Illness Service Infectious Disease Consult Requested By Reason for Consult Evaluation and Mment of Sepsis, Staph bacteremia. Primary Care Physician Evelina Dahl MD Diagnoses: History of Present Illness Most of the history was from medical records. Patient added some details which remain to be confirmed. is a 70 y/o CM with PMHx of HTN, DM, Hyperlipidemia and Neurogenic Bladder w/ Self Catheterization who was brought to the ER by EMS for c/o fever and elevated BS of 500 at home. States he checked his blood sugar at approx 7am and took 80 units of Insulin. Reports some RLE swelling which is chronic, however increased in the last 2-3 days, some right knee discomfort. Per EMS, pt was found lying on his bathroom floor by neighbors yesterday, did not seek medical attention at that time. Temp 102.0 en route to ER. On arrival, BP 151/ 121, HR 125, O2 sat 96% on RA, Temp 100.9. WBC 27.6 with elevated neutrophil count. Creatinine 3.55, producing 1.44 on 09/28/14. CPK 573. Troponin 0.07. U /a positive for UTI. EKG with no acute findings. CXR w/ no acute findings. Right Knee X-ray w/ small joint effusion. RLE Doppler w/ non-occlusive DVT of popliteal and peroneal tributary, tubelike graft/stent in right groin with surrounding hypoechoic region, possibly thrombosed aneurysm versus fluid around regional vasculature, CTA Pelvis recommended, however unable to proceed due to renal function. Of note, pt w/ recent hospitalization to [facility] for Sepsis, pt unable to provide many details but states his WBC count was 35 at that time. S/p Blood /Urine Cultures x2, Vanc/Zosyn in ER. Denies cough, nausea, vomiting, abdominal pain or diarrhea. Denies any trauma, skin tears or prior h/o cellulitis. ID consulted for evaluation and Mment of Sepsis and Staph bacteremia likely MSSA based on verigene testing. Review of Systems ROS Limitations: Altered Mental Status, Poor Historian Past Family Social History Allergies: Coded Allergies: *MDRO Multi-Drug Resistant Organism (Verified Adverse Reaction, Unknown, 01/13/16) ESBL+E.Coli (urine-01/11/16) Past Medical History HTN, DM, Hyperlipidemia Neurogenic Bladder w/ Self Catheterization GERD ?CVA on Plavix Past Surgical History RLE Stent Reported Medications Reported Meds & Active Scripts Active Reported Ranitidine (Ranitidine HCl) 150 Mg Cap 150 Mg PO DAILY Clopidogrel (Clopidogrel Bisulfate) 75 Mg Tab 75 Mg PO DAILY Losartan (Losartan Potassium) 100 Mg Tab 100 Mg PO DAILY Baclofen 20 Mg Tab 20 Mg PO TID Loratadine 10 Mg Tab 10 Mg PO DAILY Aspir-Low (Aspirin) 81 Mg Tabdr Hydrocodone-Acetaminophen 5-325 mg Tab 1 Tab PO BID PRN Tramadol (Tramadol HCl) 50 Mg Tab 50 Mg PO BID PRN Ondansetron (Ondansetron HCl) 4 Mg Tab 4 Mg PO BID Pravastatin 40 Mg Tab 40 Mg PO HS Atorvastatin (Atorvastatin Calcium) 40 Mg Tab 40 Mg PO HS [Epclusa] 400 PO DAILY Omeprazole 20 Mg Tab 20 Mg PO DAILY Losartan (Losartan Potassium) 100 Mg Tab 100 Mg PO DAILY Active Ordered Medications Current Medications Medications (Trade) Dose Ordered Sig/Smith Route Start Time Stop Time Status Last Admin (NS 1000 ml Inj) 1,000 ml @ 100 mls/hr Q10H IV 01/11/16 18:44 01/12/16 15:46 (NS Flush) 2 ml UNSCH PRN FLUSH 01/11/16 18:45 (NS Flush) 2 ml BID FLUSH 01/11/16 21:00 01/12/16 09:04 (Tylenol) 650 mg Q4H PRN PO 01/11/16 18:45 (Dulcolax Supp) 10 mg DAILY PRN TN 01/11/16 18:45 (Milk Of Magnesia Liq) 30 ml Q12H PRN PO 01/11/16 18:45 Naloxone HCl 0.4 mg 0.4 mg UNSCH PRN IV 01/11/16 18:45 Cefepime HCl 2000 mg/Sodium Chloride 100 ml @ 200 mls/hr Q24H IV 01/11/16 20:00 01/11/16 21:21 (Vancomycin Consult Pharmacy) 0 ml @ 0 mls/hr UNSCH OTHER 01/11/16 19:00 (D50w (Vial) Inj) 25 ml UNSCH PRN IV PUSH 01/11/16 19:00 (Glucagon Inj) 1 mg UNSCH PRN OTHER 01/11/16 19:00 ([place] 5-325 Mg) 1 tab Q4H PRN PO 01/11/16 19:15 01/12/16 00:15 (Morphine Inj) 2 mg Q3H PRN IV PUSH 01/11/16 19:15 (Heparin Inj) 5,000 units UNSCH PRN IV 01/12/16 01:15 Heparin Sodium (Porcine) 2500 units 2,500 units UNSCH PRN IV 01/12/16 01:15 01/12/16 02:48 (Heparin-D5W Inj) 250 ml @ 0 mls/hr TITRATE IV 01/11/16 19:15 01/12/16 16:11 (Pneumovax-23 Inj) 25 mcg ONCE ONCE IM 01/13/16 10:00 01/13/16 10:01 Family History reviewed, NC Social History Negative for alcohol, tobacco or drugs. Lives with his daughter in [place]. Physical Exam Vital Signs Vital Signs Date Time Temp Pulse Resp B/P Pulse Ox O2 Delivery O2 Flow Rate FiO2 01/12/16 16:00 100.0 130 18 158/74 93 01/12/16 12:00 100.2 108 20 133/75 96 01/12/16 08:00 98.4 106 20 155/73 95 01/12/16 04:00 99.2 94 17 142/81 97 01/12/16 00:00 101.0 117 19 164/79 97 01/11/16 22:50 100.9 112 19 156/75 97 01/11/16 21:00 100.0 113 16 116/86 97 01/11/16 19:01 106 24 120/62 95 Room Air 01/11/16 18:55 95 21 01/11/16 18:49 106 26 140/81 96 Room Air 01/11/16 18:49 99.5 Physical Exam GENERAL: Thin built, Under nourished, well developed patient, in no apparent distress. SKIN: No rashes. HEAD: Atraumatic. Normocephalic. No temporal or scalp tenderness. EYES: Pupils equal round and reactive. Extraocular motions intact. No scleral icterus. No injection or drainage. ENT: Nose without bleeding, purulent drainage or septal hematoma. Throat without erythema, tonsillar hypertrophy or exudate. Uvula midline. Airway patent. NECK: Trachea midline. Supple, nontender, no meningeal signs. CARDIOVASCULAR: RRR, murmur. RESPIRATORY: Clear to auscultation. Breath sounds equal bilaterally. GASTROINTESTINAL: Abdomen soft, non-tender, nondistended. MUSCULOSKELETAL: RLE with significant swelling noted. Tender to touch. Slight erythema. NEUROLOGICAL: Awake and alert. Responds to questions but sluggish. Psych: cooperative IV line sites with no e.o infection Laboratory Laboratory Tests Test 01/11/16 01/11/16 01/12/16 01/12/16 18:04 18:45 01:40 05:40 Blood Gas Puncture Site LT RADIAL Blood Gas Patient Temperature 98.6 Blood Gas HCO3 19 Blood Gas Base Excess -4.6 Blood Gas Oxygen Saturation 94 Arterial Blood pH 7.45 Arterial Blood Partial 27 Pressure CO2 Arterial Blood Partial 94 Pressure O2 Arterial Blood Oxygen Content 13.4 Arterial Blood 1.9 Carboxyhemoglobin Arterial Blood Methemoglobin 1.7 Blood Gas Hemoglobin 10.1 Oxygen Delivery Device ROOM AIR Blood Gas Inspired Oxygen 21 Urine Color YELLOW Urine Turbidity HAZY Urine pH 6.0 Urine Specific [place] 1.015 Urine Protein 100 Urine Glucose (UA) 300 Urine Ketones NEG Urine Occult Blood MOD Urine Nitrite NEG Urine Bilirubin NEG Urine Urobilinogen LESS THAN 2.0 Urine Leukocyte Esterase MOD Urine RBC 7 Urine WBC 38 Urine Squamous Epithelial <1 Cells Urine Bacteria MANY Urine Mucus FEW Microscopic Urinalysis Comment CATH-CULTURE IND Activated Partial 39.7 Thromboplast Time Total Creatine Kinase 585 569 Creatine Kinase MB 2.8 2.9 Creatine Kinase MB % 0.5 0.5 Troponin I 0.13 0.17 White Blood Count 22.3 Red Blood Count 3.36 Hemoglobin 9.9 Hematocrit 29.8 Mean Corpuscular Volume 88.7 Mean Corpuscular Hemoglobin 29.3 Mean Corpuscular Hemoglobin 33.0 Concent Red Cell Distribution Width 13.7 Platelet Count 191 Mean Platelet Volume 8.9 Neutrophils (%) (Auto) 92.5 Lymphocytes (%) (Auto) 3.3 Monocytes (%) (Auto) 3.9 Eosinophils (%) (Auto) 0.0 Basophils (%) (Auto) 0.3 Neutrophils # (Auto) 20.7 Lymphocytes # (Auto) 0.7 Monocytes # (Auto) 0.9 Eosinophils # (Auto) 0.0 Basophils # (Auto) 0.1 CBC Comment DIFF FINAL Differential Comment Sodium Level 144 Potassium Level 2.8 Chloride Level 110 Carbon Dioxide Level 21.4 Anion Gap 13 Blood Urea Nitrogen 68 Creatinine 2.71 Estimat Glomerular Filtration 23 Rate Random Glucose 62 Hemoglobin A1c 8.0 Calcium Level 7.9 Total Bilirubin 0.5 Aspartate Amino Transf 54 (AST/SGOT) Alanine Aminotransferase 50 (ALT/SGPT) Alkaline Phosphatase 77 Total Protein 6.2 Albumin 1.7 Test 01/12/16 11:10 Activated Partial 52.9 Thromboplast Time Date/Time Procedure Status Source Growth 01/11/16 18:45 Urine Culture - Preliminary Resulted Urine Catheterized Urine Gram Negative Tereso Staphylococcus Aureus 01/11/16 16:05 Aerobic Blood Culture - Preliminary Resulted Blood Peripheral Gram Positive Cocci 01/11/16 16:05 Anaerobic Blood Culture - Preliminary Resulted Gram Positive Cocci AEROBIC BLOOD CULTURE Preliminary 01/12/16-1225 CULTURE GROWING STAPHYLOCOCCUS AUREUS METHICILLIN SENSITIVE, BY VERIGENE NUCLEIC ACID TEST. SUSCEPTIBILITY TO FOLLOW. Result Diagram: 01/12/16 0540 01/12/16 0540 Imaging Last Impressions Shoulder X-Ray 01/12/16 0000 Signed Impressions: Service Date/Time: Tuesday, January 12, 2016 09:24 - CONCLUSION: 1. No acute fracture or subluxation of the left shoulder. 2. Probably an old fracture of the distal clavicle, healed. 3. 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 Jayce Ng MD Lower Extremity Ultrasound 01/11/16 1600 Signed Impressions: Service Date/Time: Monday, January 11, 2016 17:13 - CONCLUSION: 1. Nonocclusive thrombus in the popliteal vein and peroneal tributary. More central venous system is sonographically normal. 2. Tube like graft/stent in the right groin region with a surrounding hypoechoic region which does not show color Doppler flow. Diagnostic considerations include a thrombosed aneurysm treated with a covered stent/graft versus fluid around the regional vasculature. The latter would be concerning for possible perivascular infection. If patient's symptomatology is characteristic of an infectious or inflammatory process, CTA of the pelvis would be recommended for further characterization.. Carroll Arteaga MD Knee X-Ray 01/11/16 [id number] Signed Impressions: Service Date/Time: Monday, January 11, 2016 16:43 - CONCLUSION: Small joint effusion. K. Jose Blackburn MD Chest X-Ray 01/11/16 5409 Signed Impressions: Service Date/Time: Monday, January 11, 2016 16:40 - CONCLUSION: No acute cardiopulmonary disease. Jessica Blackburn MD Assessment and Plan Assessment and Plan Sepsis present on admission (patient was on antibiotics prior to admission ?). Fever, elevated WBC and bacteremia as source. Staph bacteremia (MSSA by verigene testing): ? line at other hospital, ? infected aneurysm. No other skin sources found. Staph and GNR in urine: Patient self catheterizes at home. Neurogenic bladder. Acute metabolic encephalopathy: likely sepsis related. Acute renal failure: ? sepsis related, baseline not known. DM uncontrolled on admission. DVT Right LE Recent admission at [facility] as risk factor for infection. Elevated troponins likely from infection Systolic murmur >? endocarditis. recs DC Vanco IV (pt has MSSA, also renal failure would like to avoid nephrotoxins) Start Ancef IV q12 hrs (renal dose adjusted by me) Continue Cefepime IV for now pending ID of GNR in urine. Repeat blood cultures x 2 Check CRP CTS consult to help evaluate ? infected aneurysm or graft site. Patient is tender, swollen some warmth in RLE. ? DVT vs other source of infection. Has MSSA bacteremia. cardio note reviewed. Follow ECHO Follow clinically. d/w patient and RN. Obtain records from [facility]. Anali Beaver MD Jan 12, 2016 17:39 Anali Beaver MD Jan 12, 2016 17:39
[2016-01-12] MEDS: ceFAZolin 2 GM PREMIX 50 ML IV SCH (18:54)
[2016-01-12] MEDS: ACETAMINOPHEN 325 MG TAB PO PRN (20:03)
[2016-01-12] MEDS: CEFEPIME INJ 2,000 MG in SODIUM CHLORIDE 0.9% INJ 100 ML IV SCH (20:04)
[2016-01-13] VITALS: BP 119/71; PULSE 98; RESP 17; TEMP 98.2; O2SAT 97
[2016-01-13] MEDS: SODIUM CHLOR 0.9% 1000 ML INJ 1,000 ML IV SCH ×3 (00:44→20:35)
[2016-01-13] MEDS: ACETAMINOPHEN/HYDROcodone 325 MG/5 MG TAB PO PRN ×2 (02:07→10:16)
[2016-01-13 04:00] VITALS: BP 134/66; PULSE 94; RESP 18; TEMP 98.9; O2SAT 94
[2016-01-13] MEDS: ceFAZolin 2 GM PREMIX 50 ML IV SCH ×2 (06:01→17:18)
[2016-01-13] MEDS: INSULIN ASPART SUPPLEMENTAL SCALE SQ SCH ×4 (06:04→20:34)
[2016-01-13 07:39] LABS: AUTOMATED NEUTROPHIL # 15.2 TH/MM3 (1.8-7.7); BASOPHIL % 0.1 % (0.0-2.0); EOSINOPHIL # 0.1 TH/MM3 (0-0.4); EOSINOPHIL % 0.4 % (0.0-4.0); HEMATOCRIT 26.4 % (39.0-51.0); HEMO FLAGS DIFF FINAL; LYMPH % 5.6 % (9.0-44.0); MEAN CELL VOLUME 89.3 FL (80.0-100.0); MEAN CORPUSCULAR HEMOGLOBIN 30.2 PG (27.0-34.0); MEAN CORPUSCULAR HGB CONC 33.8 % (32.0-36.0); MONO % 4.4 % (0.0-8.0); NEUT % 89.5 % (16.0-70.0); PLATELET COUNT 173 TH/MM3 (150-450); RED BLOOD COUNT 2.96 MIL/MM3 (4.50-5.90); RED CELL DISTRIBUTION WIDTH 13.3 % (11.6-17.2); WHITE BLOOD COUNT 16.9 TH/MM3 (4.0-11.0)
[2016-01-13 07:45] LABS: APTT (PATIENT) 52.5 SEC (24.3-30.1)
--- NOTE | 2016-01-13 07:48 | HHI.PR ---
Subjective Remarks Pt tells me that he feels the same. Pt not very talkative but still having on the left shoulder and pain with palpation of the right LE. No nausea or vomiting , no CP/SOB. Objective Vitals Vital Signs Date Time Temp Pulse Resp B/P Pulse Ox O2 Delivery O2 Flow Rate FiO2 01/13/16 04:00 98.9 94 18 134/66 94 01/13/16 00:00 98.2 98 17 119/71 97 01/12/16 21:17 93 21 01/12/16 20:00 102.0 106 19 138/79 95 01/12/16 16:00 100.0 130 18 158/74 93 01/12/16 12:00 100.2 108 20 133/75 96 01/12/16 08:00 98.4 106 20 155/73 95 I/O 01/12/16 01/12/16 01/12/16 01/13/16 01/13/16 01/13/16 07:00 15:00 23:00 07:00 15:00 23:00 Intake Total 1742 ml 960 ml 951 ml 1635 ml Output Total 900 ml 1000 ml 1000 ml Balance 842 ml 960 ml -49 ml 635 ml Intake Oral 100 ml 960 ml 120 ml 120 ml IV Total 1642 ml 831 ml 1515 ml Output Urine Total 900 ml 1000 ml 1000 ml # Bowel Movements 0 0 0 Result Diagram: 01/13/16 0635 01/12/16 0540 Imaging Last Impressions Shoulder X-Ray 01/12/16 0000 Signed Impressions: Service Date/Time: Tuesday, January 12, 2016 09:24 - CONCLUSION: 1. No acute fracture or subluxation of the left shoulder. 2. Probably an old fracture of the distal clavicle, healed. 3. 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 Jayce Ng MD Lower Extremity Ultrasound 01/11/16 1600 Signed Impressions: Service Date/Time: Monday, January 11, 2016 17:13 - CONCLUSION: 1. Nonocclusive thrombus in the popliteal vein and peroneal tributary. More central venous system is sonographically normal. 2. Tube like graft/stent in the right groin region with a surrounding hypoechoic region which does not show color Doppler flow. Diagnostic considerations include a thrombosed aneurysm treated with a covered stent/graft versus fluid around the regional vasculature. The latter would be concerning for possible perivascular infection. If patient's symptomatology is characteristic of an infectious or inflammatory process, CTA of the pelvis would be recommended for further characterization.. Carroll Arteaga MD Knee X-Ray 01/11/16 4219 Signed Impressions: Service Date/Time: Monday, January 11, 2016 16:43 - CONCLUSION: Small joint effusion. Jessica Blackburn MD Chest X-Ray 01/11/16 4283 Signed Impressions: Service Date/Time: Monday, January 11, 2016 16:40 - CONCLUSION: No acute cardiopulmonary disease. Jessica Blackburn MD Objective Remarks GENERAL: Thin, elderly white male in no acute distress. Slightly disheveled. CARDIOVASCULAR: Regular rate and rhythm but distant. Do not auscultate a murmur RESPIRATORY: No obvious rhonchi or wheezing. Clear to auscultation. Breath sounds equal bilaterally. GASTROINTESTINAL: Abdomen soft, non-tender, nondistended. BS normal. MUSCULOSKELETAL: RLE w/ 1-2 +pitting edema up to knee tender to palpation, previous healed scar, no signs of infection. Pulses intact. NEUROLOGICAL: Awake, alert and oriented, however doesn't really speak much and answers mostly w "yes tommy". He appears to be cautious w his left upper extremity but when I lift his arm he is able to resist and do some pulling w minimal discomfort. He does complain of pain w palpation at the left shoulder but no swelling is noted. A/P Problem List: (1) Sepsis ICD Code: A41.9 Status: Resolved (2) UTI (urinary tract infection) ICD Code: N39.0 Status: Acute (3) Neurogenic bladder ICD Code: N31.9 Status: Acute (4) Acute on chronic renal insufficiency ICD Code: N28.9 Status: Acute (5) Rhabdomyolysis ICD Code: M62.82 Status: Acute (6) Elevated troponin ICD Code: R79.89 Status: Acute (7) DVT (deep venous thrombosis) ICD Code: I82.409 Status: Acute (8) DM (diabetes mellitus) ICD Code: E11.9 Status: Chronic Assessment and Plan 1. Sepsis: Temp 102.0 in field, HR 120's, WBC 27.6, Source-UTI. CXR negative , images reviewed by me. S/p Blood/Urine Cultures, IV Vanc/Zosyn. Recent admit at for Sepsis, pt unable to provide further details, except states WBC was 35. Blood Cultures growing gram + cocci/staph aureus, repeat blood cx pending. Urine cx growing gram neg rods and staph aureaus. ID has switch IV abx to ancef and continued cefepime. Waiting on records from 2. UTI: U/a positive for UTI. +self catheterization. Will continue w/ IV Abx , IVF. see above 3. Neurogenic Bladder: Self catheterization as needed. 4. Acute on Chronic Renal Insufficiency: Creatinine 3.55 on admission, improving now down to 2.20, previously 1.44 on 09/28/14. IVF for hydration. Monitor. 5. Rhabdomyolysis: CPK 573, IVF for hydration, check serial CPK for trend. Per EMS, pt found lying on bathroom floor by neighbor yesterday, pt denies any trauma, states he was tired and just wanted to lie down. Now complaining of left shoulder pain. x-ray of shoulder didn't show any acute fx. Pt still having difficulty moving his left upper extremity although today he has move movement compared to yesterday. PT/OT following. OT does recommend inpatient rehab. 6. Elevated Trop: Trop 0.07, EKG w/ no acute changes. Likely secondary to worsening renal function rather than cardiac etiology, however will r/o ACS. Pt denies any chest pains whatsoever however, he is a poor historian, serial cardiac enzymes 0.07-->0.13-->0.17. Cardiology evaluated the patient, has ordered an ECHO and also stress test. 7. DM: Uncontrolled. Likely due to Sepsis. Hgb A1c 8.0, Sliding scale w/ Accu-Cheks. 8. RLE DVT: Doppler w/ non-occlusive DVT of popliteal and peroneal tributary, started on Heparin gtt in ER. Also noted to have right graft/stent w/ surrounding hypoechoic region, possibly thrombosed aneurysm vs perivascular infection, possible source of infection, recommendation for CTA Pelvis, however unable to obtain secondary to renal function. Continue w/ broad spectrum antibiotics as above. CTA Pelvis possible only if renal function improves. ID has consulted CTS for further recs/eval 9. DVT Prophylaxis: As above, on Heparin gtt Discharge Planning d/c pending further work-up and clinical improvement. Problem Qualifiers (1) DVT (deep venous thrombosis): Qualified Code: I82.431 - Deep vein thrombosis (DVT) of popliteal vein of right lower extremity, unspecified chronicity Graciela Woo MD Jan 13, 2016 07:48
[2016-01-13 08:00] VITALS: BP 122/74; PULSE 104; RESP 16; TEMP 99.3; O2SAT 94
--- NOTE | 2016-01-13 08:00 | PD.CARD.PN ---
Subjective Subjective Remarks Pt w/o complaints, no events o/n Objective Medications Administered Medications Medications (Trade) Dose Ordered Sig/Smith Route PRN Reason Start Time Stop Time Status Last Admin Dose Admin Sodium Chloride (NS 1000 ml Inj) 1,000 ml @ 100 mls/hr Q10H IV 01/11/16 18:44 01/13/16 02:28 IV Flush (NS Flush) 2 ml BID FLUSH 01/11/16 21:00 01/12/16 20:11 Acetaminophen 650 mg 650 mg Q4H PRN PO FEVER/PAIN 1-2 01/11/16 18:45 01/12/16 20:03 Cefepime HCl/ Sodium Chloride (Maxipime Inj/NS Inj) 100 ml @ 200 mls/hr Q24H IV 01/11/16 20:00 01/12/16 20:04 Acetaminophen/ Hydrocodone Bitart ([place] 5-325 Mg) 1 tab Q4H PRN PO PAIN 3-5 01/11/16 19:15 01/13/16 02:07 Heparin Sodium (Porcine) 2500 units 2,500 units UNSCH PRN IV APTT 25 TO 39 01/12/16 01:15 01/12/16 02:48 Heparin Sodium/ Dextrose 250 ml @ 0 mls/hr TITRATE IV 01/11/16 19:15 01/12/16 16:11 Cefazolin Sodium/ Dextrose (Ancef 2 Gm Premix) 50 ml @ 100 mls/hr Q12H IV 01/12/16 18:00 01/13/16 06:01 Vital Signs / I&O Vital Signs Date Time Temp Pulse Resp B/P Pulse Ox O2 Delivery O2 Flow Rate FiO2 01/13/16 04:00 98.9 94 18 134/66 94 01/13/16 00:00 98.2 98 17 119/71 97 01/12/16 21:17 93 21 01/12/16 20:00 102.0 106 19 138/79 95 01/12/16 16:00 100.0 130 18 158/74 93 01/12/16 12:00 100.2 108 20 133/75 96 01/12/16 08:00 98.4 106 20 155/73 95 I/O 01/12/16 01/12/16 01/12/16 01/13/16 01/13/16 01/13/16 06:59 14:59 22:59 06:59 14:59 22:59 Intake Total 1742 ml 960 ml 951 ml 1635 ml Output Total 900 ml 1000 ml 1000 ml Balance 842 ml 960 ml -49 ml 635 ml Intake Oral 100 ml 960 ml 120 ml 120 ml IV Total 1642 ml 831 ml 1515 ml Output Urine Total 900 ml 1000 ml 1000 ml # Bowel Movements 0 0 0 Physical Exam GENERAL: This is a well-nourished, well-developed patient, in no apparent distress. CARDIOVASCULAR: Regular rate and rhythm 3/6 IGOR RESPIRATORY: Clear to auscultation. Breath sounds equal bilaterally. No wheezes , rales, or rhonchi. GASTROINTESTINAL: Abdomen soft, non-tender, nondistended. Normal active bowel sounds MUSCULOSKELETAL: Extremities without clubbing, cyanosis, or edema. NEURO: Alert & Oriented x4 to person, place, time, situation. Moves all ext x4 Laboratory Laboratory Tests Test 01/12/16 01/12/16 01/13/16 11:10 23:13 06:35 Activated Partial 52.9 SEC 55.0 SEC 52.5 SEC Thromboplast Time White Blood Count 16.9 TH/MM3 Red Blood Count 2.96 MIL/MM3 Hemoglobin 8.9 GM/DL Hematocrit 26.4 % Mean Corpuscular Volume 89.3 FL Mean Corpuscular Hemoglobin 30.2 PG Mean Corpuscular Hemoglobin 33.8 % Concent Red Cell Distribution Width 13.3 % Platelet Count 173 TH/MM3 Mean Platelet Volume 9.1 FL Neutrophils (%) (Auto) 89.5 % Lymphocytes (%) (Auto) 5.6 % Monocytes (%) (Auto) 4.4 % Eosinophils (%) (Auto) 0.4 % Basophils (%) (Auto) 0.1 % Neutrophils # (Auto) 15.2 TH/MM3 Lymphocytes # (Auto) 1.0 TH/MM3 Monocytes # (Auto) 0.7 TH/MM3 Eosinophils # (Auto) 0.1 TH/MM3 Basophils # (Auto) 0.0 TH/MM3 CBC Comment DIFF FINAL Differential Comment Imaging Last Impressions Shoulder X-Ray 01/12/16 0000 Signed Impressions: Service Date/Time: Tuesday, January 12, 2016 09:24 - CONCLUSION: 1. No acute fracture or subluxation of the left shoulder. 2. Probably an old fracture of the distal clavicle, healed. 3. 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 Jayce Ng MD Lower Extremity Ultrasound 01/11/16 1600 Signed Impressions: Service Date/Time: Monday, January 11, 2016 17:13 - CONCLUSION: 1. Nonocclusive thrombus in the popliteal vein and peroneal tributary. More central venous system is sonographically normal. 2. Tube like graft/stent in the right groin region with a surrounding hypoechoic region which does not show color Doppler flow. Diagnostic considerations include a thrombosed aneurysm treated with a covered stent/graft versus fluid around the regional vasculature. The latter would be concerning for possible perivascular infection. If patient's symptomatology is characteristic of an infectious or inflammatory process, CTA of the pelvis would be recommended for further characterization.. Carroll Arteaga MD Knee X-Ray 01/11/16 1555 Signed Impressions: Service Date/Time: Monday, January 11, 2016 16:43 - CONCLUSION: Small joint effusion. Jessica Blackburn MD Chest X-Ray 01/11/16 [id number] Signed Impressions: Service Date/Time: Monday, January 11, 2016 16:40 - CONCLUSION: No acute cardiopulmonary disease. Jessica Blackburn MD Assessment and Plan Problem List: (1) Sepsis Assessment and Plan: urosepsis (2) Elevated troponin Assessment and Plan: likely due to sepsis (3) Heart murmur Assessment and Plan: echo planned today. (4) Urinary tract infection (5) DVT (deep venous thrombosis) Assessment and Plan: on heparin Problem Qualifiers (1) Urinary tract infection: Qualified Code: N39.0 - Urinary tract infection with hematuria, site unspecified (2) DVT (deep venous thrombosis): Qualified Code: I82.431 - Deep vein thrombosis (DVT) of popliteal vein of right lower extremity, unspecified chronicity Viraj Velazquez MD Jan 13, 2016 07:59
[2016-01-13 08:11] LABS: BICARBONATE 22.3 MEQ/L (21.0-32.0)
[2016-01-13 08:14] LABS: POTASSIUM 2.4 MEQ/L (3.5-5.1)
[2016-01-13] MEDS ORDERED: POTASSIUM CHLORIDE 20 MEQ CONTROLLED RELEASE TAB PO ONE (08:30)
[2016-01-13] MEDS: CALCIUM CARBONATE 500 MG CHEWABLE TAB CHEW SCH ×2 (09:15→20:34)
[2016-01-13] MEDS: POTASSIUM CHLOR 20 MEQ PREMIX 100 ML IV SCH ×2 (09:16→15:09)
[2016-01-13] MEDS: SODIUM CHLORIDE 0.9% FLUSH 5 ML FLUSH FLUSH SCH ×2 (09:16→20:35)
[2016-01-13] MEDS ORDERED: PNEUMOCOCCAL POLYVALENT INJ 25 MCG/0.5 ML SYR IM ONE (10:00)
[2016-01-13] MEDS ORDERED: ASP: Path resistant to other antimicrobials, culture proven XX PRN (11:00)
[2016-01-13] MEDS ORDERED: MISCELLANEOUS PHARMACY INFORMATION XX PRN (11:00)
[2016-01-13] MEDS ORDERED: REGADENOSON INJ 0.4 MG/5 ML SYR ONE (11:28)
[2016-01-13] MEDS: HEPARIN-D5W INJ 250 ML IV SCH (12:53)
[2016-01-13] MEDS: ERTAPENEM INJ 1,000 MG in SODIUM CHLORIDE 0.9% INJ 100 ML IV SCH (13:01)
--- NOTE | 2016-01-13 13:08 | RADRPT ---
EXAM DATE/TIME: 01/13/2016 10:52 [place] COMPARISON: No previous studies available for comparison. INDICATIONS : Elevated troponins. Abnormal EKG. DOSE: 26.1 mCi Tc99m Myoview at stress. 8.7 mCi Tc99m Myoview at rest. 0.4 mg Lexiscan STRESS SYMPTOMS: Shortness of breath. EJECTION FRACTION: 52% MEDICAL HISTORY : Hypertension. Hypercholesterolemia. Diabetes mellitus type 2. SURGICAL HISTORY : None. ENCOUNTER: Initial ACUITY: 2 days PAIN SCALE: 0/10 LOCATION: chest TECHNIQUE: The patient underwent pharmacologic stress with infusion of prescribed dose. Continuous ECG tracing was monitored during stress. Gated SPECT imaging was performed after stress and conventional SPECT i maging was performed at rest. The examination was performed on a SPECT/CT scanner, both attenuation and non-corrected datasets were reviewed. FINDINGS: DISTRIBUTION: The maximum perfused segment at stress is in the posterobasal wall. PERFUSION STUDY: There is moderately diminished perfusion to the cardiac apex. No definite redistribution. GATED STUDY: There is intact wall motion and thickening without hypokinetic or dyskinetic segments. CONCLUSION: Small size, moderate severity nonreversible apical perfusion abnormality. RISK CATEGORY: Low (<1% Annual Mortality Rate) Jayce Ham MD on January 13, 2016 at 13:01 Board Certified Radiologist. This report was verified electronically.
[2016-01-13 13:33] LABS: BACTERIA, URINE RARE /hpf; BLOOD, URINE MOD (NEG); GLUCOSE,URINE 300 mg/dL (NEG); GRANULAR CAST, URINE 1 /lpf; KETONE, URINE TRACE mg/dL (NEG); MUCUS URINE FEW /lpf (OCC); NITRITE,URINE NEG (NEG); SQUAMOUS EPITHELIAL CELL URINE <1 /hpf (0-5); URINE COLOR YELLOW (YELLW/STRAW)
--- NOTE | 2016-01-13 15:36 | HHI.IDPN ---
Subjective Subjective Remarks is a 70 y/o CM with PMHx of HTN, DM, Hyperlipidemia and Neurogenic Bladder w/ Self Catheterization who was brought to the ER by EMS for c/o fever and elevated BS of 500 at home. Admitted with sepsis, now being evaluated and managed for MSSA bacteremia unclear source, ESBL and MSSA UTI in a patient that self caths at home. Overnight events reviewed. Fevers defervesced with addition of Ancef IV. Blood cultures drawn so far all before effective treatment with Ancef Will redraw blood cultures today and follow UO ok No rash No diarrhea Alert, responds to questions better today. Antibiotics Ancef IV Cefepime IV Lines Line sites with no e/o infection. Past Medical History reviewed. Allergies: Coded Allergies: *MDRO Multi-Drug Resistant Organism (Verified Adverse Reaction, Unknown, 01/13/16) ESBL+E.Coli (urine-01/11/16) Objective . Vital Signs Date Time Temp Pulse Resp B/P Pulse Ox O2 Delivery O2 Flow Rate FiO2 01/13/16 08:00 99.3 104 16 122/74 94 01/13/16 04:00 98.9 94 18 134/66 94 01/13/16 00:00 98.2 98 17 119/71 97 01/12/16 21:17 93 21 01/12/16 20:00 102.0 106 19 138/79 95 01/12/16 16:00 100.0 130 18 158/74 93 01/12/16 01/12/16 01/13/16 15:00 23:00 07:00 Intake Total 960 ml 951 ml 1635 ml Output Total 1000 ml 1000 ml Balance 960 ml -49 ml 635 ml Intake Oral 960 ml 120 ml 120 ml IV Total 831 ml 1515 ml Output Urine Total 1000 ml 1000 ml # Bowel Movements 0 0 . Laboratory Tests Test 01/11/16 01/12/16 01/13/16 16:00 05:40 06:35 White Blood Count 27.6 TH/MM3 22.3 TH/MM3 16.9 TH/MM3 Red Blood Count 3.85 MIL/MM3 3.36 MIL/MM3 2.96 MIL/MM3 Hemoglobin 11.6 GM/DL 9.9 GM/DL 8.9 GM/DL Hematocrit 34.4 % 29.8 % 26.4 % Mean Corpuscular Volume 89.5 FL 88.7 FL 89.3 FL Mean Corpuscular Hemoglobin 30.1 PG 29.3 PG 30.2 PG Mean Corpuscular Hemoglobin 33.6 % 33.0 % 33.8 % Concent Red Cell Distribution Width 13.6 % 13.7 % 13.3 % Platelet Count 244 TH/MM3 191 TH/MM3 173 TH/MM3 Mean Platelet Volume 9.4 FL 8.9 FL 9.1 FL Neutrophils (%) (Auto) % 92.5 % 89.5 % Lymphocytes (%) (Auto) % 3.3 % 5.6 % Monocytes (%) (Auto) % 3.9 % 4.4 % Eosinophils (%) (Auto) % 0.0 % 0.4 % Basophils (%) (Auto) % 0.3 % 0.1 % Neutrophils # (Auto) TH/MM3 20.7 TH/MM3 15.2 TH/MM3 Lymphocytes # (Auto) TH/MM3 0.7 TH/MM3 1.0 TH/MM3 Monocytes # (Auto) TH/MM3 0.9 TH/MM3 0.7 TH/MM3 Eosinophils # (Auto) TH/MM3 0.0 TH/MM3 0.1 TH/MM3 Basophils # (Auto) TH/MM3 0.1 TH/MM3 0.0 TH/MM3 CBC Comment AUTO DIFF DIFF FINAL DIFF FINAL Differential Total Cells 100 Counted Neutrophils % (Manual) 88 % Band Neutrophils % 3 % Lymphocytes % 1 % Monocytes % 8 % Neutrophils # (Manual) 25.1 TH/MM3 Differential Comment FINAL DIFF MANUAL Platelet Estimate NORMAL Platelet Morphology Comment NORMAL Red Cell Morphology Comment NORMAL Laboratory Tests Test 01/11/16 01/12/16 01/12/16 01/13/16 16:00 01:40 05:40 06:35 Sodium Level 137 MEQ/L 144 MEQ/L 138 MEQ/L Potassium Level 3.7 MEQ/L 2.8 MEQ/L 2.4 MEQ/L Chloride Level 101 MEQ/L 110 MEQ/L 104 MEQ/L Carbon Dioxide Level 20.7 MEQ/L 21.4 MEQ/L 22.3 MEQ/L Anion Gap 15 MEQ/L 13 MEQ/L 12 MEQ/L Blood Urea Nitrogen 84 MG/DL 68 MG/DL 49 MG/DL Creatinine 3.55 MG/DL 2.71 MG/DL 2.20 MG/DL Estimat Glomerular Filtration 17 ML/MIN 23 ML/MIN 30 ML/MIN Rate Random Glucose 361 MG/DL 62 MG/DL 137 MG/DL Lactic Acid Level 1.8 mmol/L Calcium Level 8.2 MG/DL 7.9 MG/DL 7.5 MG/DL Magnesium Level 2.5 MG/DL Total Bilirubin 0.5 MG/DL 0.5 MG/DL Aspartate Amino Transf 50 U/L 54 U/L (AST/SGOT) Alanine Aminotransferase 54 U/L 50 U/L (ALT/SGPT) Alkaline Phosphatase 103 U/L 77 U/L Total Creatine Kinase 573 U/L 585 U/L 569 U/L Creatine Kinase MB 2.4 NG/ML 2.8 NG/ML 2.9 NG/ML Creatine Kinase MB % 0.4 % 0.5 % 0.5 % Troponin I 0.07 NG/ML 0.13 NG/ML 0.17 NG/ML Total Protein 7.4 GM/DL 6.2 GM/DL Albumin 2.1 GM/DL 1.7 GM/DL Lipase 99 U/L Hemoglobin A1c 8.0 % C-Reactive Protein 20.00 MG/DL Test 01/13/16 08:47 Magnesium Level 1.9 MG/DL Microbiology Date/Time Procedure Status Source Growth 01/11/16 16:00 Aerobic Blood Culture - Preliminary Resulted Blood Peripheral Staphylococcus Aureus 01/11/16 16:00 Anaerobic Blood Culture - Preliminary Resulted Staphylococcus Aureus 01/11/16 16:05 Aerobic Blood Culture - Preliminary Resulted Blood Peripheral Staphylococcus Aureus 01/11/16 16:05 Anaerobic Blood Culture - Preliminary Resulted Staphylococcus Aureus 01/11/16 18:45 Urine Culture - Final Complete Urine Catheterized Urine Escherichia Coli Esbl Positive Staphylococcus Aureus 01/12/16 18:40 Aerobic Blood Culture - Preliminary Resulted Blood Peripheral Gram Positive Cocci 01/12/16 18:40 Anaerobic Blood Culture - Preliminary Resulted Blood Peripheral NO GROWTH IN 1 DAY 01/12/16 19:00 Aerobic Blood Culture - Preliminary Resulted Blood Peripheral Gram Positive Cocci 01/12/16 19:00 Anaerobic Blood Culture - Preliminary Resulted Blood Peripheral NO GROWTH IN 1 DAY Imaging Last Impressions Myocardial Perfusion Scan Nuc Med 01/13/16 0000 Signed Impressions: Service Date/Time: Wednesday, January 13, 2016 10:52 - CONCLUSION: Small size, moderate severity nonreversible apical perfusion abnormality. RISK CATEGORY: Low (<1%% Annual Mortality Rate) Jayce Ham MD Shoulder X-Ray 01/12/16 0000 Signed Impressions: Service Date/Time: Tuesday, January 12, 2016 09:24 - CONCLUSION: 1. No acute fracture or subluxation of the left shoulder. 2. Probably an old fracture of the distal clavicle, healed. 3. 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 Jayce Ng MD Lower Extremity Ultrasound 01/11/16 1600 Signed Impressions: Service Date/Time: Monday, January 11, 2016 17:13 - CONCLUSION: 1. Nonocclusive thrombus in the popliteal vein and peroneal tributary. More central venous system is sonographically normal. 2. Tube like graft/stent in the right groin region with a surrounding hypoechoic region which does not show color Doppler flow. Diagnostic considerations include a thrombosed aneurysm treated with a covered stent/graft versus fluid around the regional vasculature. The latter would be concerning for possible perivascular infection. If patient's symptomatology is characteristic of an infectious or inflammatory process, CTA of the pelvis would be recommended for further characterization.. Carroll Arteaga MD Knee X-Ray 01/11/16 1555 Signed Impressions: Service Date/Time: Monday, January 11, 2016 16:43 - CONCLUSION: Small joint effusion. Jessica Blackburn MD Chest X-Ray 01/11/16 1555 Signed Impressions: Service Date/Time: Monday, January 11, 2016 16:40 - CONCLUSION: No acute cardiopulmonary disease. Jessica Blackburn MD Physical Exam GENERAL: Thin built, Under nourished, well developed patient, in no apparent distress. SKIN: No rashes. HEAD: Atraumatic. Normocephalic. No temporal or scalp tenderness. EYES: Pupils equal round and reactive. Extraocular motions intact. No scleral icterus. No injection or drainage. ENT: Nose without bleeding, purulent drainage or septal hematoma. Throat without erythema, tonsillar hypertrophy or exudate. Uvula midline. Airway patent. NECK: Trachea midline. Supple, nontender, no meningeal signs. CARDIOVASCULAR: RRR, murmur. RESPIRATORY: Clear to auscultation. Breath sounds equal bilaterally. GASTROINTESTINAL: Abdomen soft, non-tender, nondistended. MUSCULOSKELETAL: RLE with significant swelling noted. Tender to touch. Slight erythema. NEUROLOGICAL: Awake and alert. Responds to questions but sluggish. Psych: cooperative IV line sites with no e.o infection Assessment & Plan Remarks Sepsis present on admission (patient was on antibiotics prior to admission ?). Fever, elevated WBC and bacteremia as source. Staph bacteremia (MSSA by verigene testing): ? line at other hospital, ? infected aneurysm. No other skin sources found. Staph and GNR in urine: Patient self catheterizes at home. Neurogenic bladder. Acute metabolic encephalopathy: likely sepsis related. Acute renal failure: ? sepsis related, baseline not known. DM uncontrolled on admission. DVT Right LE Recent admission at [facility] as risk factor for infection. Elevated troponins likely from infection Systolic murmur >? endocarditis. recs Continue Ancef IV q12 hrs (renal dose adjusted by me) DC cefepime IV Start Ertapenem IV (ASP criteria: ESBL UTI present on admission in a patient that self catheterizes at home) Repeat blood cultures x 2 again today. CTS consult to help evaluate ? infected aneurysm or graft site. Patient is tender, swollen some warmth in RLE. ? DVT vs other source of infection. Has MSSA bacteremia. Trevon Salazar: he will see patient today. cardio note reviewed. records still pending checked chart and with RN. TT ECHO pending. NM scan with some abnormalities of apical perfusion. Follow clinically. d/w patient and RN. Anali Beaver MD Jan 13, 2016 15:36
[2016-01-13 16:00] VITALS: BP 140/75; PULSE 109; RESP 16; TEMP 101.6; O2SAT 95
[2016-01-13] MEDS: ACETAMINOPHEN 325 MG TAB PO PRN (17:04)
[2016-01-13 18:11] VITALS: TEMP 99.6
--- NOTE | 2016-01-13 19:12 | HHI.PR ---
Subjective Subjective Notes 70-year-old patient with excellent proximal and distal pulses and no signs of vascular deficit presents with sepsis hyperglycemia and leukocytosis He has some sort of a stent in his right groin but certainly not in the femoral artery completely patent This stent is in some other structure which is occluded and not connected to the blood flow I do not believe this is the source of sepsis in any way but have discussed with Dr. Mancilla. Once the creatinine is down within the CTA with a runoff which did show us a little better where this stent is and then if there is still some question about his being source of infection we can always do ultrasound-guided aspiration of the fluid. I would probably stay away from it for the time being for we'll introduce infection where there isn't any so was the creatinine is down and CTAs done will have a little better idea. Full consult dictated Thanks J Objective Vitals/I&O Vital Signs Date Time Temp Pulse Resp B/P Pulse Ox O2 Delivery O2 Flow Rate FiO2 01/13/16 18:11 99.6 01/13/16 16:00 109 16 140/75 95 01/12/16 21:17 21 01/11/16 19:01 Room Air 01/11/16 16:00 2.0 Labs Laboratory Tests Test 01/12/16 01/13/16 01/13/16 01/13/16 23:13 06:35 08:47 13:16 Activated Partial 55.0 52.5 Thromboplast Time White Blood Count 16.9 Red Blood Count 2.96 Hemoglobin 8.9 Hematocrit 26.4 Mean Corpuscular Volume 89.3 Mean Corpuscular Hemoglobin 30.2 Mean Corpuscular Hemoglobin 33.8 Concent Red Cell Distribution Width 13.3 Platelet Count 173 Mean Platelet Volume 9.1 Neutrophils (%) (Auto) 89.5 Lymphocytes (%) (Auto) 5.6 Monocytes (%) (Auto) 4.4 Eosinophils (%) (Auto) 0.4 Basophils (%) (Auto) 0.1 Neutrophils # (Auto) 15.2 Lymphocytes # (Auto) 1.0 Monocytes # (Auto) 0.7 Eosinophils # (Auto) 0.1 Basophils # (Auto) 0.0 CBC Comment DIFF FINAL Differential Comment Sodium Level 138 Potassium Level 2.4 Chloride Level 104 Carbon Dioxide Level 22.3 Anion Gap 12 Blood Urea Nitrogen 49 Creatinine 2.20 Estimat Glomerular Filtration 30 Rate Random Glucose 137 Calcium Level 7.5 Magnesium Level 1.9 Urine Color YELLOW Urine Turbidity HAZY Urine pH 6.0 Urine Specific [place] 1.011 Urine Protein 100 Urine Glucose (UA) 300 Urine Ketones TRACE Urine Occult Blood MOD Urine Nitrite NEG Urine Bilirubin NEG Urine Urobilinogen LESS THAN 2.0 Urine Leukocyte Esterase MOD Urine RBC 3 Urine WBC 35 Urine WBC Clumps RARE Urine Squamous Epithelial <1 Cells Urine Bacteria RARE Urine Granular Casts 1 Urine Mucus FEW Urine Yeast with Hyphae OCC Urine Yeast (Budding) FEW Date/Time Procedure Status Source Growth 01/13/16 16:15 Aerobic Blood Culture Received Blood Peripheral Pending 01/13/16 16:15 Anaerobic Blood Culture Received Blood Peripheral Pending 01/12/16 19:00 Aerobic Blood Culture - Preliminary Resulted Blood Peripheral Gram Positive Cocci 01/12/16 19:00 Anaerobic Blood Culture - Preliminary Resulted Blood Peripheral NO GROWTH IN 1 DAY 01/11/16 18:45 Urine Culture - Final Complete Urine Catheterized Urine Escherichia Coli Esbl Positive Staphylococcus Aureus Ethan Booker MD Jan 13, 2016 19:12
--- NOTE | 2016-01-13 20:02 | EC ---
Study Study Date:01/13/2016 STUDY CONCLUSIONS SUMMARY - Left ventricle: The cavity size was normal. Wall thickness was increased in a pattern of mild LVH. Systolic function was normal. The estimated ejection fraction was in the range of 55% to 60%. Wall motion was normal; there were no regional wall motion abnormalities. - Aortic valve: Valve area: 2.98cm^2(VTI). Valve area: 2.86cm^2 (Vmax). If LV function is below 40, please consider prescribing an ACEI or ARB or document rationale for non-use. PROCEDURE DATA STUDY STATUS: Elective. Procedure: Transthoracic echocardiography. Image quality was good. Scanning was performed from the parasternal, apical, and subcostal acoustic windows. Study completion: The patient tolerated the procedure well. Transthoracic echocardiography. M-mode, complete 2D, complete spectral Doppler, and color Doppler. Height: Height: 71in. Weight: Weight: 142.7lb. Body mass index: BMI: 19.9kg/m^2. Body surface area: BSA: 1.83m^2. Patient status: Inpatient. CARDIAC ANATOMY LEFT VENTRICLE: The cavity size was normal. Wall thickness was increased in a pattern of mild LVH. Systolic function was normal. The estimated ejection fraction was in the range of 55% to 60%. Wall motion was normal; there were no regional wall motion abnormalities. AORTIC VALVE: Trileaflet; normal thickness, mildly calcified leaflets. Doppler: Transvalvular velocity was within the normal range. There was no stenosis. No regurgitation. Valve area: 2.98cm^2(VTI). Indexed valve area: 1.63cm^2/m^2 (VTI). Valve area: 2.86cm^2 (Vmax). Indexed valve area: 1.56cm^2/m^2 (Vmax). Mean gradient: 4mm Hg (S). AORTA: Aortic root: The aortic root was normal in size. MITRAL VALVE: Structurally normal valve. Doppler: Transvalvular velocity was within the normal range. There was no evidence for stenosis. Trace regurgitation. LEFT ATRIUM: The atrium was normal in size. RIGHT VENTRICLE: The cavity size was normal. Wall thickness was normal. PULMONIC VALVE: Doppler: Transvalvular velocity was within the normal range. There was no evidence for stenosis. No regurgitation. TRICUSPID VALVE: Structurally normal valve. Doppler: Transvalvular velocity was within the normal range. Trace regurgitation. PULMONARY ARTERY: The main pulmonary artery was normal-sized. Systolic pressure was within the normal range. RIGHT ATRIUM: The atrium was normal in size. PERICARDIUM: There was no pericardial effusion. Patient weight: 142.7lb _Ejection fraction:_ 65-75% _Fractional shortening:_ 32% up to 5Kg 5-11.5Kg 11.6-22.9Kg 23-45Kg 45-57Kg Aortic Root 7-13 <17 13-22 17-27 17-27 LA diam 6-13 <23 24-38 33-47 37-40 RVID 10-17 7-15 7-15 7-18 8-17 LVIDd 12-22 <32 24-38 33-47 37-40 LVPW 2-4 3-6 5-7 6-8 7-8 IVS 2-4 3-6 5-7 6-8 7-8 BASIC MEASUREMENTS ADULT NORMAL Left ventricle LV internal dimension, ED, chordal *35 mm 43-52 level, PLAX LV internal dimension, ES, chordal 25 mm 23-38 level, PLAX Fractional shortening, chordal level, *29 % >29 PLAX LV posterior wall thickness, ED 13.1 mm IVS/LVPW ratio, ED 1 <1.3 Ventricular septum Septal thickness, ED 13.1 mm Aortic valve Leaflet separation 25 mm 15-26 Aorta Root diameter, ED 36 mm Left atrium Anterior-posterior dimension 30 mm Anterior-posterior dimension index 1.64 cm/m^2 <2.2 BASIC MEASUREMENTS ADULT NORMAL Aortic valve Leaflet separation 25 mm 15-26 DOPPLER MEASUREMENTS ADULT NORMAL Main pulmonary artery Pressure, S 25 mm Hg =30 Aortic valve Peak velocity, S 117 cm/s Mean velocity, S 91.5 cm/s VTI, S 18.4 cm Mean gradient, S 4 mm Hg Valve area, VTI 2.98 cm^2 Valve area index, VTI 1.63 cm^2/m^2 Valve area, Vmax 2.86 cm^2 Valve area index, Vmax 1.56 cm^2/m^2 Mitral valve Peak E-wave velocity 63.7 cm/s Peak A-wave velocity 115 cm/s Peak E/A ratio 0.6 Tricuspid valve Regurgitant peak velocity 233 cm/s Peak RV-RA gradient, S 22 mm Hg Maximal regurgitant velocity 233 cm/s Systemic veins Estimated CVP 5 mm Hg Right ventricle RV pressure, S 27 mm Hg <30 Pulmonic valve Peak velocity, S 65.6 cm/s LEGEND: Mean values are shown as u=mean value. Asterisk (*) guillermo values outside specified normal range. Prepared and signed by Ghassan Knowles [id number]
[2016-01-13 20:30] VITALS: BP 134/74; PULSE 96; RESP 20; TEMP 100.3; O2SAT 95
[2016-01-14] VITALS (7 sets, daily range): BP systolic 123–175; BP diastolic 70–89; PULSE 104–109; RESP 16–24; TEMP 96.8–101; O2SAT 91–96
[2016-01-14] MEDS: ACETAMINOPHEN 325 MG TAB PO PRN ×2 (00:24→18:25)
[2016-01-14] MEDS: ACETAMINOPHEN/HYDROcodone 325 MG/5 MG TAB PO PRN (00:24)
[2016-01-14] MEDS: SODIUM CHLOR 0.9% 1000 ML INJ 1,000 ML IV SCH ×2 (04:48→15:30)
[2016-01-14] MEDS: INSULIN ASPART SUPPLEMENTAL SCALE SQ SCH ×4 (04:56→21:13)
[2016-01-14] MEDS: ceFAZolin 2 GM PREMIX 50 ML IV SCH ×3 (04:57→21:12)
[2016-01-14 06:20] LABS: BASOPHIL % 0.1 % (0.0-2.0); EOSINOPHIL # 0.1 TH/MM3 (0-0.4); EOSINOPHIL % 0.6 % (0.0-4.0); HEMATOCRIT 30.3 % (39.0-51.0); HEMO FLAGS DIFF FINAL; LYMPH % 7.3 % (9.0-44.0); LYMPHOCYTE # 1.1 TH/MM3 (1.0-4.8); MEAN CORPUSCULAR HEMOGLOBIN 29.7 PG (27.0-34.0); MEAN CORPUSCULAR HGB CONC 33.4 % (32.0-36.0); MONO % 5.1 % (0.0-8.0); NEUT % 86.9 % (16.0-70.0); PLATELET COUNT 201 TH/MM3 (150-450); RED BLOOD COUNT 3.41 MIL/MM3 (4.50-5.90); RED CELL DISTRIBUTION WIDTH 13.5 % (11.6-17.2)
--- NOTE | 2016-01-14 06:50 | MB ---
cc: ETHAN BOOKER MD DATE OF CONSULTATION 01/13/[address] Booker, surgery REASON FOR CONSULTATION Possible peripheral vascular disease, possible infection of the right groin, stent of the right groin. HISTORY OF PRESENT DISEASE This 70-year-old male with a known medical history presents to the hospital with blood sugars over 500. Patient is on insulin at home and is now admitted for further workup. He has been treated now for his hyperglycemia with a classic protocol of revascularization and then insulin therapy. In the process, he underwent bilateral lower extremity ultrasounds and on the right side there is an old nonocclusive thrombus of the popliteal vein, as well as some sort of a graft or stent in the right groin. Question arises if this is an aneurysm or some other entity. The patient was apparently admitted to [place] recently for sepsis, but there is no further documentation of this and the patient is really a poor historian. I cannot get much out of him. PAST MEDICAL HISTORY 1. Hypertension 2. Diabetes mellitus 3. Hyperlipidemia 4. Neurogenic bladder, self-catheterization 5. Possible CVA 6. Gastroesophageal reflux disease MEDICATIONS The medications can be found on the record. ALLERGIES None PHYSICAL EXAM Physical examination reveals a skinny 70-year-old male in no acute distress. HEAD, EYES, EARS, NOSE, AND THROAT: Normocephalic. No trauma to the head. Pupils are equally reactive. Extraocular muscles intact. NECK: Bilateral carotid pulses. No bruits. CHEST: Bilateral breath sounds decreased over both lung feng. Moderate COPD, however, the patient has atrophy on the chest wall musculature in the form of pulmonary cachexia. HEART: Regular rhythm. ABDOMEN: Soft, patulous active bowel sounds. No rebound or guarding. EXTREMITIES: The patient has palpable femoral popliteal, dorsalis pedis and posterior tibial pulses. I do not see any difference in size of the right to the left leg. Normal capillary refill. NEUROLOGIC: The patient is grossly intact, however, he states that since he came to the hospital he has not been walking, but has been walking before. IMPRESSION AND RECOMMENDATIONS I reviewed laboratory diagnostic procedures. There are multiple issues here and it is hard to discern vascular from nonvascular pathology. It can be said this patient's excellent vasculature with palpable proximal and distal pulses and no signs of acute or chronic vascular deficit. He does have some sort of a tubular structure over in his right groin. There is no flow through it and his common femoral artery is completely normal, so I do not know what this thing is in his groin. There is some fluid around it. Certainly the groin does not look infected or inflamed. The first thing that comes to my mind with leukocytosis and fever as well as sudden onset of hyperglycemia is obviously some sort of sepsis and my first place to look would be obviously urine, but not anywhere else. At this point, I believe it is not unreasonable to do CTA with a runoff however, the patient's creatinine is still elevated. I have discussed this with Dr. Mancilla and he is willing to stick a needle into this collection and see what comes out in the groin, but I am pretty sure that this is not the source of the patient's problems, so I would wait for creatinine to come down, do a CTA with a runoff and then maybe if there is still any question, I aspirate some fluid from around this tubular structure whatever it may be. I agree with antibiotic therapy and we will see which way to goes considering the patient has grown E-coli ESBL positive also Staph aureus in urine and blood. Thank you very much for your referral. Critical care time 40 minutes. Ethan FRITZ /6:39 PM /6:40 AM
[2016-01-14 06:54] LABS: BICARBONATE 24.7 MEQ/L (21.0-32.0); MAGNESIUM 1.8 MG/DL (1.5-2.5)
[2016-01-14 06:57] LABS: POTASSIUM 2.9 MEQ/L (3.5-5.1)
[2016-01-14 07:29] LABS: APTT (PATIENT) 51.6 SEC (24.3-30.1)
[2016-01-14] MEDS ORDERED: POTASSIUM CHLORIDE 20 MEQ CONTROLLED RELEASE TAB PO ONE (08:00)
--- NOTE | 2016-01-14 08:51 | HHI.PR ---
Subjective Remarks Pt states he is ok, no pain, no SOB, nausea or vomiting. Not very talkative Objective Vitals Vital Signs Date Time Temp Pulse Resp B/P Pulse Ox O2 Delivery O2 Flow Rate FiO2 01/14/16 04:45 99.1 104 18 139/73 95 01/14/16 00:00 101.0 105 20 155/83 96 01/13/16 20:30 100.3 96 20 134/74 95 01/13/16 18:11 99.6 01/13/16 16:00 101.6 109 16 140/75 95 I/O 01/13/16 01/13/16 01/13/16 01/14/16 01/14/16 01/14/16 07:00 15:00 23:00 07:00 15:00 23:00 Intake Total 1635 ml 1080 ml 1050 ml 840 ml Output Total 1000 ml 1475 ml 400 ml 850 ml Balance 635 ml -395 ml 650 ml -10 ml Intake Oral 120 ml 1080 ml 120 ml IV Total 1515 ml 1050 ml 720 ml Output Urine Total 1000 ml 1475 ml 400 ml 850 ml # Bowel Movements 0 0 Result Diagram: 01/14/16 0521 01/14/16 0521 Imaging Last Impressions Myocardial Perfusion Scan Nuc Med 01/13/16 0000 Signed Impressions: Service Date/Time: Wednesday, January 13, 2016 10:52 - CONCLUSION: Small size, moderate severity nonreversible apical perfusion abnormality. RISK CATEGORY: Low (<1%% Annual Mortality Rate) Jayce Ham MD Shoulder X-Ray 01/12/16 0000 Signed Impressions: Service Date/Time: Tuesday, January 12, 2016 09:24 - CONCLUSION: 1. No acute fracture or subluxation of the left shoulder. 2. Probably an old fracture of the distal clavicle, healed. 3. 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 Jayce Ng MD Lower Extremity Ultrasound 01/11/16 1600 Signed Impressions: Service Date/Time: Monday, January 11, 2016 17:13 - CONCLUSION: 1. Nonocclusive thrombus in the popliteal vein and peroneal tributary. More central venous system is sonographically normal. 2. Tube like graft/stent in the right groin region with a surrounding hypoechoic region which does not show color Doppler flow. Diagnostic considerations include a thrombosed aneurysm treated with a covered stent/graft versus fluid around the regional vasculature. The latter would be concerning for possible perivascular infection. If patient's symptomatology is characteristic of an infectious or inflammatory process, CTA of the pelvis would be recommended for further characterization.. Carroll Arteaga MD Knee X-Ray 01/11/16 9170 Signed Impressions: Service Date/Time: Monday, January 11, 2016 16:43 - CONCLUSION: Small joint effusion. Jessica Blackburn MD Chest X-Ray 01/11/16 3467 Signed Impressions: Service Date/Time: Monday, January 11, 2016 16:40 - CONCLUSION: No acute cardiopulmonary disease. Jessica Blackburn MD Objective Remarks GENERAL: Thin, elderly white male in no acute distress. Slightly disheveled. CARDIOVASCULAR: Regular rate and rhythm but distant. Do not auscultate a murmur RESPIRATORY: No obvious rhonchi or wheezing. Clear to auscultation. Breath sounds equal bilaterally. GASTROINTESTINAL: Abdomen soft, non-tender, nondistended. BS normal. MUSCULOSKELETAL: RLE w/ 1-2 +pitting edema up to knee tender to palpation, previous healed scar, no signs of infection. Pulses intact. Also noted edema on the left upper extremity around the elbow, which was warm to touch but erythema noted. NEUROLOGICAL: Awake, alert and oriented, however doesn't really speak much and answers mostly w "yes tommy". He continues to be cautious w his left upper extremity but when I lift his arm he is able to resist and do some pulling w minimal discomfort. he won't lift the arm without assistance and uses his right arm at times but allows me to move it around but I do note some he gets pain w external rotation and he does resist me when I try to extend his arm. No pain today w palpation of the shoulder A/P Problem List: (1) Sepsis ICD Code: A41.9 Status: Resolved (2) UTI (urinary tract infection) ICD Code: N39.0 Status: Acute (3) Neurogenic bladder ICD Code: N31.9 Status: Acute (4) Acute on chronic renal insufficiency ICD Code: N28.9 Status: Acute (5) Rhabdomyolysis ICD Code: M62.82 Status: Acute (6) Elevated troponin ICD Code: R79.89 Status: Acute (7) DVT (deep venous thrombosis) ICD Code: I82.409 Status: Acute (8) DM (diabetes mellitus) ICD Code: E11.9 Status: Chronic Assessment and Plan 1. Sepsis: Temp 102.0 in field, HR 120's, WBC 27.6, Source-UTI. CXR negative , images reviewed by me. S/p Blood/Urine Cultures, IV Vanc/Zosyn. Recent admit at for Sepsis, pt unable to provide further details, except states WBC was 35. Blood Cultures growing gram + cocci/staph aureus, repeat blood cx pending. Urine cx growing E. Coli ESBL and staph aureaus. ID has switch IV abx to ancef and switched cefepime to ertapenem. Waiting on records from 2. UTI: U/a positive for UTI. +self catheterization. Will continue w/ IV Abx , IVF. see above 3. Neurogenic Bladder: Self catheterization as needed. 4. Acute on Chronic Renal Insufficiency: Creatinine 3.55 on admission, improving now down to 2.18, previously 1.44 on 09/28/14. IVF for hydration. Monitor. 5. Rhabdomyolysis: CPK 573, IVF for hydration, check serial CPK for trend. Per EMS, pt found lying on bathroom floor by neighbor yesterday, pt denies any trauma, states he was tired and just wanted to lie down. Now complaining of left shoulder pain. x-ray of shoulder didn't show any acute fx. Pt still having difficulty moving his left upper extremity although today he has move movement compared to yesterday. PT/OT following. OT does recommend inpatient rehab. will get us upper left ext due to swelling noted. 6. Elevated Trop: Trop 0.07, EKG w/ no acute changes. Likely secondary to worsening renal function rather than cardiac etiology, however will r/o ACS. Pt denies any chest pains whatsoever however, he is a poor historian, serial cardiac enzymes 0.07-->0.13-->0.17. Cardiology evaluated the patient, has ordered an ECHO which showed EF 55-60% stress test showed " Small size, moderate severity nonreversible apical perfusion abnormality, low risk". 7. DM: Uncontrolled. Likely due to Sepsis. Hgb A1c 8.0, Sliding scale w/ Accu-Cheks. 8. RLE DVT: Doppler w/ non-occlusive DVT of popliteal and peroneal tributary, started on Heparin gtt in ER. Also noted to have right graft/stent w/ surrounding hypoechoic region, possibly thrombosed aneurysm vs perivascular infection, possible source of infection, recommendation for CTA Pelvis, however unable to obtain secondary to renal function. Continue w/ broad spectrum antibiotics as above. CTA Pelvis possible only if renal function improves. CTS also following, would prefer CTA w runoff once Cr improves. 9. DVT Prophylaxis: As above, on Heparin gtt Discharge Planning d/c pending further work-up and clinical improvement. Problem Qualifiers (1) DVT (deep venous thrombosis): Qualified Code: I82.431 - Deep vein thrombosis (DVT) of popliteal vein of right lower extremity, unspecified chronicity Graciela Woo MD Jan 14, 2016 08:50
[2016-01-14] MEDS: SODIUM CHLORIDE 0.9% FLUSH 5 ML FLUSH FLUSH SCH ×2 (09:00→21:00)
[2016-01-14] MEDS: CALCIUM CARBONATE 500 MG CHEWABLE TAB CHEW SCH ×2 (09:14→21:12)
[2016-01-14] MEDS: POTASSIUM CHLOR 20 MEQ PREMIX 100 ML IV SCH ×2 (09:15→11:52)
[2016-01-14] MEDS: HEPARIN-D5W INJ 250 ML IV SCH (09:20)
--- NOTE | 2016-01-14 11:49 | HHI.PR ---
Addendum to Inpatient Note Addendum Reason: Additional Documentation Additional Information Chart review documentation BCX persistently positive: repeat BCX ordered, Dw Cardio about [facility] suspect endocarditis. mentions left elbow swelling: will get Xray left elbow. CT C/A/P without IV contrast to look for abscesses. Doppler UE bilateral r/o septic thrombophlebitis. Was recently hospitalized at ? line related infections. to d.w family about baseline status,cause of neurogenic bladder and update family. Need medical records from [facility] to provide further recs. Continue Ancef IV(increase dose to q8hrs) Continue Ertapenem IV Cannot give Genta as patient has CKD (cr elevated in 2015). Consider Nephro consult to address CKD workup etc. Anali Beaver MD Jan 14, 2016 11:49
[2016-01-14] MEDS ORDERED: DIATRIZOATE MEGLUM/DIATRIZOATE SOD 9 ML CUP PO ONE (12:00)
--- NOTE | 2016-01-14 12:53 | PD.CARD.PN ---
Subjective Subjective Remarks no complaints Objective Medications Current Medications Medications (Trade) Dose Ordered Sig/Smith Route Start Time Stop Time Status Last Admin (NS 1000 ml Inj) 1,000 ml @ 100 mls/hr Q10H IV 01/11/16 18:44 01/14/16 04:48 (NS Flush) 2 ml UNSCH PRN FLUSH 01/11/16 18:45 (NS Flush) 2 ml BID FLUSH 01/11/16 21:00 01/13/16 09:16 (Tylenol) 650 mg Q4H PRN PO 01/11/16 18:45 01/14/16 00:24 (Dulcolax Supp) 10 mg DAILY PRN VA 01/11/16 18:45 (Milk Of Magnesia Liq) 30 ml Q12H PRN PO 01/11/16 18:45 (Narcan Inj) 0.4 mg UNSCH PRN IV 01/11/16 18:45 (D50w (Vial) Inj) 25 ml UNSCH PRN IV PUSH 01/11/16 19:00 (Glucagon Inj) 1 mg UNSCH PRN OTHER 01/11/16 19:00 ([place] 5-325 Mg) 1 tab Q4H PRN PO 01/11/16 19:15 01/14/16 00:24 (Morphine Inj) 2 mg Q3H PRN IV PUSH 01/11/16 19:15 (Heparin Inj) 5,000 units UNSCH PRN IV 01/12/16 01:15 Heparin Sodium (Porcine) 2500 units 2,500 units UNSCH PRN IV 01/12/16 01:15 01/12/16 02:48 (Heparin-D5W Inj) 250 ml @ 0 mls/hr TITRATE IV 01/11/16 19:15 01/14/16 09:20 Calcium Carbonate 500 mg 500 mg Q12HR CHEW 01/13/16 09:00 01/14/16 09:14 Ertapenem 1000 mg/ Sodium Chloride 100 ml @ 200 mls/hr Q24H IV 01/13/16 12:00 01/13/16 13:01 (Ancef 2 Gm Premix) 50 ml @ 100 mls/hr Q8H IV 01/14/16 14:00 Vital Signs / I&O Vital Signs Date Time Temp Pulse Resp B/P Pulse Ox O2 Delivery O2 Flow Rate FiO2 01/14/16 08:00 98.9 105 18 175/89 96 01/14/16 04:45 99.1 104 18 139/73 95 01/14/16 00:00 101.0 105 20 155/83 96 01/13/16 20:30 100.3 96 20 134/74 95 01/13/16 18:11 99.6 01/13/16 16:00 101.6 109 16 140/75 95 I/O 01/13/16 01/13/16 01/13/16 01/14/16 01/14/16 01/14/16 07:00 15:00 23:00 07:00 15:00 23:00 Intake Total 1635 ml 1080 ml 1050 ml 840 ml Output Total 1000 ml 1475 ml 400 ml 850 ml Balance 635 ml -395 ml 650 ml -10 ml Intake Oral 120 ml 1080 ml 120 ml IV Total 1515 ml 1050 ml 720 ml Output Urine Total 1000 ml 1475 ml 400 ml 850 ml # Bowel Movements 0 0 Physical Exam GENERAL: Well-nourished, well-developed patient. SKIN: Warm and dry. HEAD: Normocephalic. EYES: No scleral icterus. No injection or drainage. NECK: Supple, trachea midline. No JVD or lymphadenopathy. CARDIOVASCULAR: Regular rate and rhythm 2/6SEM no gallops, or rubs. RESPIRATORY: Breath sounds equal bilaterally. No accessory muscle use. GASTROINTESTINAL: Abdomen soft, non-tender, nondistended. EXTREMITIES: No cyanosis, or edema. NEUROLOGICAL: Awake, alert, and oriented x 3. Non-focal. Laboratory Laboratory Tests Test 01/13/16 01/14/16 01/14/16 13:16 05:21 06:55 Urine Color YELLOW Urine Turbidity HAZY Urine pH 6.0 Urine Specific [place] 1.011 Urine Protein 100 mg/dL Urine Glucose (UA) 300 mg/dL Urine Ketones TRACE mg/dL Urine Occult Blood MOD Urine Nitrite NEG Urine Bilirubin NEG Urine Urobilinogen LESS THAN 2.0 MG/DL Urine Leukocyte Esterase MOD Urine RBC 3 /hpf Urine WBC 35 /hpf Urine WBC Clumps RARE Urine Squamous Epithelial <1 /hpf Cells Urine Bacteria RARE /hpf Urine Granular Casts 1 /lpf Urine Mucus FEW /lpf Urine Yeast with Hyphae OCC Urine Yeast (Budding) FEW White Blood Count 15.0 TH/MM3 Red Blood Count 3.41 MIL/MM3 Hemoglobin 10.1 GM/DL Hematocrit 30.3 % Mean Corpuscular Volume 89.0 FL Mean Corpuscular Hemoglobin 29.7 PG Mean Corpuscular Hemoglobin 33.4 % Concent Red Cell Distribution Width 13.5 % Platelet Count 201 TH/MM3 Mean Platelet Volume 9.3 FL Neutrophils (%) (Auto) 86.9 % Lymphocytes (%) (Auto) 7.3 % Monocytes (%) (Auto) 5.1 % Eosinophils (%) (Auto) 0.6 % Basophils (%) (Auto) 0.1 % Neutrophils # (Auto) 13.0 TH/MM3 Lymphocytes # (Auto) 1.1 TH/MM3 Monocytes # (Auto) 0.8 TH/MM3 Eosinophils # (Auto) 0.1 TH/MM3 Basophils # (Auto) 0.0 TH/MM3 CBC Comment DIFF FINAL Differential Comment Sodium Level 139 MEQ/L Potassium Level 2.9 MEQ/L Chloride Level 105 MEQ/L Carbon Dioxide Level 24.7 MEQ/L Anion Gap 9 MEQ/L Blood Urea Nitrogen 42 MG/DL Creatinine 2.18 MG/DL Estimat Glomerular Filtration 30 ML/MIN Rate Random Glucose 241 MG/DL Calcium Level 7.6 MG/DL Magnesium Level 1.8 MG/DL Activated Partial 51.6 SEC Thromboplast Time Imaging Last Impressions Myocardial Perfusion Scan Nuc Med 01/13/16 0000 Signed Impressions: Service Date/Time: Wednesday, January 13, 2016 10:52 - CONCLUSION: Small size, moderate severity nonreversible apical perfusion abnormality. RISK CATEGORY: Low (<1%% Annual Mortality Rate) Jayce Ham MD Shoulder X-Ray 01/12/16 0000 Signed Impressions: Service Date/Time: Tuesday, January 12, 2016 09:24 - CONCLUSION: 1. No acute fracture or subluxation of the left shoulder. 2. Probably an old fracture of the distal clavicle, healed. 3. 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 Jayce Ng MD Lower Extremity Ultrasound 01/11/16 1600 Signed Impressions: Service Date/Time: Monday, January 11, 2016 17:13 - CONCLUSION: 1. Nonocclusive thrombus in the popliteal vein and peroneal tributary. More central venous system is sonographically normal. 2. Tube like graft/stent in the right groin region with a surrounding hypoechoic region which does not show color Doppler flow. Diagnostic considerations include a thrombosed aneurysm treated with a covered stent/graft versus fluid around the regional vasculature. The latter would be concerning for possible perivascular infection. If patient's symptomatology is characteristic of an infectious or inflammatory process, CTA of the pelvis would be recommended for further characterization.. Carroll Arteaga MD Knee X-Ray 01/11/16 2572 Signed Impressions: Service Date/Time: Monday, January 11, 2016 16:43 - CONCLUSION: Small joint effusion. Jessica Blackburn MD Chest X-Ray 01/11/16 8213 Signed Impressions: Service Date/Time: Monday, January 11, 2016 16:40 - CONCLUSION: No acute cardiopulmonary disease. Jessica Blackburn MD Assessment and Plan Problem List: (1) Sepsis Assessment and Plan: Schedule for [facility] today ?endocarditis Keep NPO (2) Elevated troponin (3) Heart murmur (4) Urinary tract infection (5) DVT (deep venous thrombosis) Problem Qualifiers (1) Urinary tract infection: Qualified Code: N39.0 - Urinary tract infection with hematuria, site unspecified (2) DVT (deep venous thrombosis): Qualified Code: I82.431 - Deep vein thrombosis (DVT) of popliteal vein of right lower extremity, unspecified chronicity Camilo Vega MD Jan 14, 2016 12:53
--- NOTE | 2016-01-14 13:39 | RADRPT ---
EXAM DATE/TIME: 01/14/2016 13:05 [facility] COMPARISON: No previous studies available for comparison. INDICATIONS : Left elbow pain with no known injury. MEDICAL HISTORY : Hypertension. Hypercholesterolemia. Diabetes mellitus type 2. SURGICAL HISTORY : None. ENCOUNTER: Initial ACUITY: 2 days PAIN SCORE: 6/10 LOCATION: Left posterior elbow. FINDINGS: Two view examination of the left elbow demonstrates no joint effusion, fracture or dislocation. Bony mineralization is normal. Possible soft tissue swelling overlying the olecranon. CONCLUSION: Possible soft tissue swelling overlying the olecranon. Otherwise negative exam Arian Stone MD on January 14, 2016 at 13:37 Board Certified Radiologist. This report was verified electronically.
--- NOTE | 2016-01-14 14:56 | RADRPT ---
EXAM DATE/TIME: 01/14/2016 10:33 [facility] COMPARISON: No previous studies available for comparison. INDICATIONS : Bilateral upper extremity edema. MEDICAL HISTORY : Hypercholesterolemia. Hypertension. Gastroesophageal reflux disease. Neurogenic bladder. Arthritis. D iabetes. Blood transfusion. SURGICAL HISTORY : Stent in right leg. ENCOUNTER: Initial ACUITY: 1 day PAIN SCORE: 0/10 LOCATION: Bilateral arms. FINDINGS: RIGHT UPPER EXTREMITY: Paired brachial veins are present. One of the 2 parallel venous channels is occluded throughout the u pper arm. The other deep venous structures are intact and patent. Specifically, the radial and ulnar veins, the axillary, subclavian and jugular veins are patent.. LEFT UPPER EXTREMITY: There is spontaneous flow documented in the brachial, basilic, cephalic, axillary, and subclavian vei ns. The vessels are compressible and augmentation response is documented. No filling defects are se en. The flow is phasic with respiration. Direction of flow in the jugular vein is caudal. CONCLUSION: DVT present in one of the 2 paired right brachial veins Jayce Ham MD on January 14, 2016 at 14:51 Board Certified Radiologist. This report was verified electronically.
--- NOTE | 2016-01-14 15:12 | HHI.PR ---
Addendum to Inpatient Note Addendum Reason: Additional Documentation Additional Information Reviewed left olecranon Xray with swelling ? infected bursitis. Consider ortho consult. RUE DVT pt on Heparin. d/w Anali Ramon MD Jan 14, 2016 15:12
[2016-01-14] MEDS: ERTAPENEM INJ 1,000 MG in SODIUM CHLORIDE 0.9% INJ 100 ML IV SCH (15:18)
--- NOTE | 2016-01-14 15:53 | RADRPT ---
EXAM DATE/TIME: 01/14/2016 15:37 [facility] COMPARISON: No previous studies available for comparison. INDICATIONS : Persistent bacteremia, pneumonia, questionable septic emboli RADIATION DOSE: 17 .12 CTDIvol (mGy) ; Combined studies - Thorax/Abdomen/Pelvis MEDICAL HISTORY : Cardiovascular disease. Hypertension. Gastroesophageal reflux disease. Diabetes SURGICAL HISTORY : None. ENCOUNTER: Initial ACUITY: 1 day PAIN SCALE: 5/10 LOCATION: lower chest TECHNIQUE: Volumetric scanning of the chest was performed. Using automated exposure control and adjustment of the mA and/or kV according to patient size, radiation dose was kept as low as reasonab ly achievable to obtain optimal diagnostic quality images. FINDINGS: LUNGS: Right lower lobe interstitial change and triangular area of consolidation posteriorly PLEURAE: Small right pleural effusion posteriorly MEDIASTINUM: The heart and great vessels demonstrate no acute abnormality. There is no mediastin al or hilar lymphadenopathy. Coronary calcifications. Small hiatal hernia. AXILLAE: Within normal limits. No lymphadenopathy. MUSCULOSKELETAL: Within normal limits for patient age. MISCELLANEOUS: The visualized upper abdominal organs demonstrate no acute abnormality. CONCLUSION: Right lower lobe interstitial change with a peripheral wedge shaped triangular area o f parenchymal consolidation and associated small pleural effusion. Arian Stone MD on January 14, 2016 at 15:46 Board Certified Radiologist. This report was verified electronically.
--- NOTE | 2016-01-14 16:07 | RADRPT ---
EXAM DATE/TIME: 01/14/2016 15:37 [facility] COMPARISON: No previous studies available for comparison. INDICATIONS : Severe sepsis. Abscess. ORAL CONTRAST: No oral contrast ingested. RADIATION DOSE: 17.14 CTDIvol (mGy) ; Combined studies - Thorax/Abdomen/Pelvis MEDICAL HISTORY : Cardiovascular disease. Hypertension. Gastroesophageal reflux disease.Diabetes SURGICAL HISTORY : None. ENCOUNTER: Initial ACUITY: 1 day PAIN SCALE: 7/10 LOCATION: upper chest TECHNIQUE: Volumetric scanning of the abdomen and pelvis was performed. Using automated exposure control and ad justment of the mA and/or kV according to patient size, radiation dose was kept as low as reasonably achievable to obtain optimal diagnostic quality images. FINDINGS: LOWER LUNGS: The visualized lower lungs are clear. LIVER: Homogeneous density without lesion. There is no dilation of the biliary tree. Clips in place prior c holecystectomy. SPLEEN: Normal size without lesion. PANCREAS: Within normal limits. KIDNEYS: Normal in size and shape. There is no mass, stone, or hydronephrosis. ADRENAL GLANDS: Within normal limits. VASCULAR: There is no aortic aneurysm. BOWEL/MESENTERY: The stomach, small bowel, and colon demonstrate no acute abnormality. There is no free intraperitone al air or fluid. There are diverticuli of the sigmoid colon. ABDOMINAL WALL: Within normal limits. RETROPERITONEUM: There is interstitial air diffusely in the pelvic basin around the urinary bladder and some extending into the left inguinal canal. Small amount of free fluid in the pelvis BLADDER: Payan catheter in place in the decompressed urinary bladder.. REPRODUCTIVE: Within normal limits. INGUINAL: There is no lymphadenopathy or hernia. MUSCULOSKELETAL: Within normal limits for patient age. CONCLUSION: Urinary bladder is decompressed with Payan catheter in place. There is interstitial air in the pelvic basin around the urinary bladder with a sm all amount extending into the left inguinal canal and a trace amount of free fluid in the posterior p mercedes. Diverticuli of the sigmoid colon appreciated Arian Stone MD on January 14, 2016 at 15:59 Board Certified Radiologist. This report was verified electronically.
--- NOTE | 2016-01-14 19:52 | MB ---
cc: ELYSIA MATTSON M.D. DATE OF CONSULTATION 01/14/2016 REASON FOR CONSULTATION Left olecranon swelling with mild pain. HISTORY Mr. Garcia is a 70-year-old gentleman who was evidently admitted to the hospital because of sepsis approximately 3 days ago. During the course of evaluation he was noted to have some redness and swelling about his elbow. X-rays revealed a questionable amount of soft tissue swelling and the undersigned was consulted for orthopedic evaluation and treatment. PAST MEDICAL HISTORY 1. Hypertension. 2. Diabetes. 3. Hyperlipidemia. 4. Neurogenic bladder with history of self catheterization. PAST SURGICAL HISTORY Right lower extremity stent. ALLERGIES None. MEDICATIONS Medications include: 1. Loratadine. 2. Zofran. 3. Losartan. 4. Baclofen. 5. Atorvastatin. 6. Pravastatin. 7. Ranitidine. 8. Aspirin. 9. Hydrocodone. 10. Tramadol. 11. Plavix. 12. Omeprazole. SOCIAL HISTORY He does not drink alcohol, smoke cigarettes or use recreational drugs. PHYSICAL EXAMINATION GENERAL: On examination the patient is alert, oriented, does answer questions appropriately. VITAL SIGNS: He has a temperature of 100.4, heart rate of 109, respiratory rate 24, blood pressure 147/83. Despite these vital signs the patient is comfortable lying supine. Does not appear to be having any chills. DIRECTED EXAMINATION: Examination of the left elbow does reveal mild erythema and swelling about the elbow. I cannot detect a true fluid collection. It does not appear to be more thickening of the skin, however, I am not sure. X-RAYS I have reviewed an AP and lateral x-ray of the left elbow which was taken on 01/14/2016. Does reveal evidence of questionable soft tissue swelling about the olecranon. ASSESSMENT Possible left olecranon septic bursitis. PLAN At this point I would recommend pressing on with CT scan of the left elbow to rule out a fluid collection. I will follow the patient with you. If there is evidence of fluid collection the patient may very well need ultrasound-guided aspiration or the possibility of open irrigation debridement and application of vacuum-assisted pack with IV antibiotics. All questions have been answered. MD MARTIN Gong/MARIO Hassan: 01/14/2016/6:23 PM /7:44 PM
--- NOTE | 2016-01-14 20:34 | HHI.PR ---
Addendum to Inpatient Note Addendum Reason: Additional Documentation Additional Information late entry: I did attempt to call pt's daughter w number on EMR twice but went straight to voicemail. Will attempt again in AM Current: I reviewed reports from CT abd/pelvis/chest. 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 I also discussed those findings w Dr. Anali Beaver, She agrees w consult to Urology and feels that abx coverage is appropriate at this time. I will once again try to obtain records from in AM as so far we haven't received any. A hematology consult also has been placed as pt has DVT of the brachial vein on the right and non occlusive thrombus on the popliteal vein as well Graciela Woo MD Jan 14, 2016 20:34
[2016-01-15] VITALS: BP 166/81; PULSE 103; RESP 16; TEMP 96.7; O2SAT 96
[2016-01-15] MEDS: SODIUM CHLOR 0.9% 1000 ML INJ 1,000 ML IV SCH ×3 (02:05→22:44)
[2016-01-15 04:00] VITALS: BP 167/79; PULSE 105; RESP 16; TEMP 99.9; O2SAT 93
[2016-01-15] MEDS: ACETAMINOPHEN/HYDROcodone 325 MG/5 MG TAB PO PRN (04:32)
[2016-01-15] MEDS: INSULIN ASPART SUPPLEMENTAL SCALE SQ SCH ×4 (05:45→22:32)
[2016-01-15] MEDS: ceFAZolin 2 GM PREMIX 50 ML IV SCH ×3 (05:46→22:11)
[2016-01-15 06:14] LABS: APTT (PATIENT) 55.2 SEC (24.3-30.1)
[2016-01-15 06:17] LABS: AUTOMATED NEUTROPHIL # 13.6 TH/MM3 (1.8-7.7); BASOPHIL # 0.1 TH/MM3 (0-0.2); BASOPHIL % 0.7 % (0.0-2.0); EOSINOPHIL # 0.1 TH/MM3 (0-0.4); EOSINOPHIL % 0.5 % (0.0-4.0); HEMATOCRIT 27.7 % (39.0-51.0); HEMO FLAGS DIFF FINAL; LYMPH % 7.9 % (9.0-44.0); LYMPHOCYTE # 1.3 TH/MM3 (1.0-4.8); MEAN CORPUSCULAR HEMOGLOBIN 29.9 PG (27.0-34.0); MEAN CORPUSCULAR HGB CONC 33.6 % (32.0-36.0); NEUT % 85.9 % (16.0-70.0); PLATELET COUNT 222 TH/MM3 (150-450); RED BLOOD COUNT 3.11 MIL/MM3 (4.50-5.90); RED CELL DISTRIBUTION WIDTH 13.5 % (11.6-17.2); WHITE BLOOD COUNT 15.9 TH/MM3 (4.0-11.0)
[2016-01-15] MEDS: HEPARIN-D5W INJ 250 ML IV SCH (06:40)
[2016-01-15 06:52] LABS: BICARBONATE 24.8 MEQ/L (21.0-32.0); MAGNESIUM 1.7 MG/DL (1.5-2.5)
[2016-01-15 06:57] LABS: POTASSIUM 2.8 MEQ/L (3.5-5.1)
[2016-01-15 07:10] LABS: CALCIUM-PROTEIN CORRECTED 8.3 MG/DL (8.5-10.1)
[2016-01-15 08:00] VITALS: BP 140/76; PULSE 101; RESP 18; TEMP 97.4; O2SAT 95
--- NOTE | 2016-01-15 08:30 | HHI.PR ---
Subjective Remarks More history obtained from daughter Juan Antonio Arrington over the phone this morning (pt couldn't answer the phone yesterday because she was at work): she tell me that the Week before dante pt complained of his neck/back were hurting(dec 22 ) . the week before was playing golf, was self sufficient, taking care of himself, lives w daughter Juan Antonio Arrington and . The week before, got hitting pad and took some ibuprofen thinking that his pain would go away. Went in to , was told that he had arthritis of his back, was given muscle relaxers, no fevers. went home; next day drove his grandson to school, he at that time looked somewhat groggy but then went back home, that afternoon, grandson found him not cognitive, stumbling around the house, daughter's called parametics and took him to on dec 23. Pt couldn't recognize daughter, didn't know the year, was diagnosed w bladder infection. Daughter states that he Self caths at home (apparently was told at the [facility] to do so per pt, doesn't know the reason/diagnosis. Per daughter he also has kidney problems but doesn't know his baseline function). He was discharged wednesdaydec 26, came home. Didn't seem like himself at all. Per daughter, he was not sent home on Abx. He was w daughter for dante, daughter and went on a cruise after. On wednesdayjan 09, neighbor found father covered on floor covered in feces. She called parametics, his BS was 590, given insulin. He refused to go the hospital at that time. on Jan 10, neighbor called daughter, noticed leg/foot swollen which wasn't swollen before, pt couldn't lift himself up, daughter rushed back from cruise, was able to convinced him to go to the hospital (for this admission ). I evaluated the pt, he was on his way to his [place]. State he doesn't have pain whenever he doesn't move. No nausea or vomiting. No CP/SOB. Objective Vitals Vital Signs Date Time Temp Pulse Resp B/P Pulse Ox O2 Delivery O2 Flow Rate FiO2 01/15/16 04:00 99.9 105 16 167/79 93 01/15/16 00:00 96.7 103 16 166/81 96 01/14/16 21:12 98.5 01/14/16 20:00 96.8 109 16 123/70 91 01/14/16 17:30 100.4 109 24 147/83 95 I/O 01/14/16 01/14/16 01/14/16 01/15/16 01/15/16 01/15/16 06:59 14:59 22:59 06:59 14:59 22:59 Intake Total 840 ml 240 ml 2935 ml 955 ml Output Total 850 ml 1950 ml 900 ml 1000 ml Balance -10 ml -1710 ml 2035 ml -45 ml Intake Oral 120 ml 240 ml 240 ml 0 ml IV Total 720 ml 2695 ml 955 ml Output Urine Total 850 ml 1950 ml 900 ml 1000 ml # Bowel Movements 0 0 Result Diagram: 01/15/16 0523 01/15/16 05 Imaging Last Impressions Upper Extremity Ultrasound 01/14/16 0000 Signed Impressions: Service Date/Time: Thursday, January 14, 2016 10:33 - CONCLUSION: DVT present in one of the 2 paired right brachial veins Jayce Ham MD Elbow X-Ray 01/14/16 0000 Signed Impressions: Service Date/Time: Thursday, January 14, 2016 13:05 - CONCLUSION: Possible soft tissue swelling overlying the olecranon. Otherwise negative exam Arian Stone MD Chest CT 01/14/16 0000 Signed Impressions: Service Date/Time: Thursday, January 14, 2016 15:37 - CONCLUSION: Right lower lobe interstitial change with a peripheral wedge shaped triangular area of parenchymal consolidation and associated small pleural effusion. Arian Stone MD Abdomen/Pelvis CT 01/14/16 0000 Signed Impressions: Service Date/Time: Thursday, January 14, 2016 15:37 - CONCLUSION: Urinary bladder is decompressed with Paul catheter in place. There is interstitial air in the pelvic basin around the urinary bladder with a small amount extending into the left inguinal canal and a trace amount of free fluid in the posterior pelvis. Diverticuli of the sigmoid colon appreciated Arian Stone MD Myocardial Perfusion Scan Nuc Med 01/13/16 0000 Signed Impressions: Service Date/Time: Wednesday, January 13, 2016 10:52 - CONCLUSION: Small size, moderate severity nonreversible apical perfusion abnormality. RISK CATEGORY: Low (<1%% Annual Mortality Rate) Jayce Ham MD Shoulder X-Ray 01/12/16 0000 Signed Impressions: Service Date/Time: Tuesday, January 12, 2016 09:24 - CONCLUSION: 1. No acute fracture or subluxation of the left shoulder. 2. Probably an old fracture of the distal clavicle, healed. 3. 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 Jayce Ng MD Lower Extremity Ultrasound 01/11/16 1600 Signed Impressions: Service Date/Time: Monday, January 11, 2016 17:13 - CONCLUSION: 1. Nonocclusive thrombus in the popliteal vein and peroneal tributary. More central venous system is sonographically normal. 2. Tube like graft/stent in the right groin region with a surrounding hypoechoic region which does not show color Doppler flow. Diagnostic considerations include a thrombosed aneurysm treated with a covered stent/graft versus fluid around the regional vasculature. The latter would be concerning for possible perivascular infection. If patient's symptomatology is characteristic of an infectious or inflammatory process, CTA of the pelvis would be recommended for further characterization.. Carroll Arteaga MD Knee X-Ray 01/11/16 1555 Signed Impressions: Service Date/Time: Monday, January 11, 2016 16:43 - CONCLUSION: Small joint effusion. Jessica Blackburn MD Chest X-Ray 01/11/16 1555 Signed Impressions: Service Date/Time: Monday, January 11, 2016 16:40 - CONCLUSION: No acute cardiopulmonary disease. Jessica Blackburn MD Objective Remarks GENERAL: Thin, elderly white male in no acute distress. Slightly disheveled. CARDIOVASCULAR: Regular rate and rhythm but distant. Do not auscultate a murmur RESPIRATORY: No obvious rhonchi or wheezing. Clear to auscultation. Breath sounds equal bilaterally. GASTROINTESTINAL: Abdomen soft, non-tender, nondistended. BS normal. MUSCULOSKELETAL: RLE w/ 1-2 +pitting edema up to knee tender to palpation, previous healed scar, no signs of infection. Pulses intact. Also noted edema on the left upper extremity around the elbow, which was warm to touch but erythema noted. NEUROLOGICAL: Awake, alert and oriented, is able to answer questions a bit better today. He continues to be cautious w his left upper extremity but when I lift his arm he is able to resist and do some pulling w minimal discomfort. he won't lift the arm without assistance and uses his right arm at times but allows me to move it around but I do note some he gets pain w external rotation and he does resist me when I try to extend his arm. No pain today w palpation of the shoulder A/P Problem List: (1) Sepsis ICD Code: A41.9 Status: Resolved (2) UTI (urinary tract infection) ICD Code: N39.0 Status: Acute (3) Neurogenic bladder ICD Code: N31.9 Status: Acute (4) Acute on chronic renal insufficiency ICD Code: N28.9 Status: Acute (5) Rhabdomyolysis ICD Code: M62.82 Status: Acute (6) Elevated troponin ICD Code: R79.89 Status: Acute (7) DVT (deep venous thrombosis) ICD Code: I82.409 Status: Acute (8) DM (diabetes mellitus) ICD Code: E11.9 Status: Chronic Assessment and Plan 1. Sepsis: Temp 102.0 in field, HR 120's, WBC 27.6, Source-UTI. CXR negative , images reviewed by me. S/p Blood/Urine Cultures, IV Vanc/Zosyn. Recent admit at for Sepsis, daughter able to provide more info (see subjective section). Blood Cultures growing gram + cocci/staph aureus, repeat blood 01/13 cx pending. Urine cx growing E. Coli ESBL and staph aureaus. per ID, on ancef and ertapenem (s/p cefepime). Still Waiting on records from . I have asked RN once again to try to obtain records and I also asked daughter to assist w this as well. She states she will try to get them 2. UTI: U/a positive for UTI. +self catheterization. Will continue w/ IV Abx , IVF. see above. 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 I discussed the case w Dr. Lopez who recommends keeping paul in place and continuing IV abx for now. Appreciate assistance. 3. ?Neurogenic Bladder: Self catheterization as needed. Pt unable to tells us what he self cath and daughter not sure what diagnosis was 4. Acute on Chronic Renal Insufficiency: Creatinine 3.55 on admission, improving now down to 2.01, previously 1.44 on 09/28/14. IVF for hydration. Monitor. 5. Rhabdomyolysis: CPK 573, IVF for hydration, check serial CPK for trend. Per EMS, pt found lying on bathroom floor by neighbor yesterday, pt denies any trauma, states he was tired and just wanted to lie down. Now complaining of left shoulder pain and per daughter he also had been complaining of right shoulder pain. x-ray of shoulder didn't show any acute fx. Pt still having difficulty moving his left upper extremity although today he has move movement compared to yesterday. PT/OT following. OT does recommend inpatient rehab. 6. Elevated Trop: Trop 0.07, EKG w/ no acute changes. Likely secondary to worsening renal function rather than cardiac etiology, however will r/o ACS. Pt denies any chest pains whatsoever however, he is a poor historian, serial cardiac enzymes 0.07-->0.13-->0.17. Cardiology evaluated the patient, has ordered an ECHO which showed EF 55-60% stress test showed " Small size, moderate severity nonreversible apical perfusion abnormality, low risk". 7. DM: Uncontrolled. Likely due to Sepsis. Hgb A1c 8.0, Sliding scale w/ Accu-Cheks. 8. RUE/RLE DVT: Doppler w/ non-occlusive DVT of popliteal and peroneal tributary, started on Heparin gtt in ER. Also noted to have right graft/stent w / surrounding hypoechoic region, possibly thrombosed aneurysm vs perivascular infection, possible source of infection, recommendation for CTA Pelvis, however unable to obtain secondary to renal function. Continue w/ broad spectrum antibiotics as above. CTA Pelvis possible only if renal function improves. CTS also following, would prefer CTA w runoff once Cr improves. upper extremity u/s shows DVT of the brachial vein. Hematology consult in place, unknown if pt had PICC at last admission on that arm. 9. Left elbow swelling: Orthopedic evaluated pt, ordered CT elbow to r/o effusion. Appreciate assistance. 10. DVT Prophylaxis: As above, on Heparin gtt Discharge Planning d/c pending further work-up and clinical improvement. Problem Qualifiers (1) DVT (deep venous thrombosis): Qualified Code: I82.431 - Deep vein thrombosis (DVT) of popliteal vein of right lower extremity, unspecified chronicity Graciela Woo MD Jan 15, 2016 08:30
[2016-01-15] MEDS: CALCIUM CARBONATE 500 MG CHEWABLE TAB CHEW SCH ×2 (09:00→20:20)
[2016-01-15] MEDS: SODIUM CHLORIDE 0.9% FLUSH 5 ML FLUSH FLUSH SCH ×2 (09:00→20:24)
[2016-01-15] MEDS: amLODIPine BESYLATE 5 MG TAB PO SCH (09:45)
--- NOTE | 2016-01-15 09:50 | MB ---
cc: NICOLAS BOSWELL DATE OF CONSULTATION: 01/15/2016 HISTORY OF PRESENT ILLNESS Mr. Garcia is a 70-year-old male who presented on 01/11/2016. He was found down and brought in by EMS with a history of a urinary tract infection. Apparently he was seen at [facility] and was treated for a possible UTI but did not receive antibiotics upon discharge. The patient has a history of self-catheterization and up until his time of illness he was plane golf regularly and walking without difficulty and not having any problems. He did state he had would get occasional urinary tract infections in the past with self-cath. He is unclear as to the reason why he was advised to perform self-catheterization other than the fact that he knows that he was not emptying his bladder completely. Upon admission he was found to have a blood sugar of 500 and appeared to be septic with a white count of 27,000. Furthermore, his creatinine was 3.5 on admission with acute renal failure. During his admission he underwent a CT scan and air was noted within his urinary bladder consistent with emphysematous cystitis. He denies any history of prostatitis. PAST MEDICAL HISTORY 1. Hypertension. 2. Diabetes. 3. Hyperlipidemia. 4. Atonic/neurogenic bladder requiring self-catheterization three times a day. 5. Occasional urinary tract infections is also noted. PAST SURGICAL HISTORY Right lower extremity stent. ALLERGIES No known drug allergies. MEDICATIONS For medications please refer to the chart. SOCIAL HISTORY Denies smoking, drinking or using drugs. FAMILY HISTORY Noncontributory. REVIEW OF SYSTEMS Denies chest pain or shortness of breath. Denies prior gait disturbances, bleeding disorders, psychiatric problems. Denies heat or cold intolerance. PHYSICAL EXAMINATION VITAL SIGNS: Today temperature is 99.9, heart rate 105, respiratory rate 16, blood pressure 167/79. GENERAL: He is a well-developed, well-nourished 70-year-old male in no acute distress. HEENT: Normocephalic, atraumatic. Pupils equal, round and reactive to light. NECK: Supple. Trachea is midline. LUNGS: Breath sounds are bilaterally. ABDOMEN: Soft, nontender, nondistended. : There is a Payan catheter in place draining clear urine. EXTREMITIES: No clubbing, cyanosis or edema. LABORATORY His present white count is 15.9, hemoglobin 9.3, hematocrit 27.7, platelet count 222. Sodium 137, potassium 2.8, chloride 102, CO2 24.8, BUN 37, creatinine 2.1 down from 3.5 on admission, glucose now 211. Urinalysis was positive for 35 white cells, 3 red cells and moderate leukocyte esterase. Blood cultures grew out staph aureus. Urine culture grew out both staph aureus and E. coli. IMAGING Again, imaging studies show evidence of air around the urinary bladder with possible emphysematous cystitis. ASSESSMENT This is a 70-year-old male with sepsis and acute renal failure and history of an atonic neurogenic bladder performing self-catheterization with sepsis involving E. coli and staph aureus in the blood and the urine. CT scan suggest emphysematous cystitis. RECOMMENDATIONS Would recommend maintaining the Payan catheter now and continue with IV antibiotics. Repeat CT scan in approximately 5-7 days to see if the air is resolving. In the future the patient may need to have permanent drainage with possibly an SP tube or undergo a TURP if he is able to demonstrate detrusor contractility on urodynamic studies, and this can be done as an outpatient. Will follow with you for now. Thank you for the consult and allowing me to participate in the care of this patient. Nicolas CONTEH /9:16 AM /9:29 AM KIRSTIE
[2016-01-15] MEDS ORDERED: INSULIN HUMAN REGULAR 1,000 UNITS/10 ML VIAL SQ PRN (11:00)
[2016-01-15] MEDS: SODIUM CHLORID 0.9% 500 ML IV SCH (11:00)
[2016-01-15] MEDS ORDERED: METOPROLOL TARTRATE 25 MG TAB PO PRN (11:00)
[2016-01-15] MEDS: LACTATED RINGER'S 1000 ML IV SCH (11:00)
[2016-01-15] MEDS ORDERED: PROPOFOL 200 MG/20 ML AMP IV ONE (11:38)
[2016-01-15] MEDS: ERTAPENEM INJ 1,000 MG in SODIUM CHLORIDE 0.9% INJ 100 ML IV SCH (11:50)
[2016-01-15 12:00] VITALS: BP 136/72; PULSE 100; RESP 16; TEMP 97.2; O2SAT 97
--- NOTE | 2016-01-15 12:40 | ETE ---
Study Study Date:01/15/2016 STUDY CONCLUSIONS SUMMARY - Left ventricle: The cavity size was normal. Wall thickness was normal. Systolic function was normal. The estimated ejection fraction was in the range of 55% to 60%. Wall motion was normal; there were no regional wall motion abnormalities. - Aortic valve: No evidence of vegetation. - Mitral valve: No evidence of vegetation. - Left atrium: No evidence of thrombus in the atrial cavity or appendage. - Right atrium: No evidence of thrombus in the atrial cavity or appendage. - Tricuspid valve: No evidence of vegetation. - Pulmonic valve: No evidence of vegetation. Impressions: No evidence of endocarditis. If LV function is below 40, please consider prescribing an ACEI or ARB or document rationale for non-use. PROCEDURE DATA Consent: The risks, benefits, and alternatives to the procedure were explained to the patient and informed consent was obtained. Procedure: Initial setup. The patient was brought to the laboratory in the fasting state. Intravenous access was obtained. Surface ECG leads and pulse oximetric signals were monitored. Sedation. Conscious sedation was administered by cardiology staff. Transesophageal echocardiography. Topical anesthesia was obtained using viscous lidocaine. A transesophageal probe was inserted by the attending merchandising assistant. Image quality was good. Study completion: All IVs inserted during the procedure were removed. The patient tolerated the procedure well. There were no complications. Transesophageal echocardiography. 2D, complete spectral Doppler, and color Doppler. CARDIAC ANATOMY LEFT VENTRICLE: The cavity size was normal. Wall thickness was normal. Systolic function was normal. The estimated ejection fraction was in the range of 55% to 60%. Wall motion was normal; there were no regional wall motion abnormalities. AORTIC VALVE: Structurally normal valve. Trileaflet; normal thickness leaflets. Cusp separation was normal. No evidence of vegetation. Doppler: No significant regurgitation. Aorta: - There was no atheroma. There was no evidence for dissection. Aortic root: The aortic root was not dilated. Ascending aorta: The ascending aorta was normal in size. Aortic arch: The aortic arch was normal in size. Descending aorta: The descending aorta was normal in size. MITRAL VALVE: Structurally normal valve. Leaflet separation was normal. No evidence of vegetation. Doppler: No significant regurgitation. LEFT ATRIUM: The atrium was normal in size. No evidence of thrombus in the atrial cavity or appendage. The appendage was morphologically a left appendage, multilobulated, and of normal size. Emptying velocity was normal. RIGHT VENTRICLE: The cavity size was normal. Wall thickness was normal. Systolic function was normal. PULMONIC VALVE: Structurally normal valve. No evidence of vegetation. TRICUSPID VALVE: Structurally normal valve. Leaflet separation was normal. No evidence of vegetation. Doppler: No significant regurgitation. PULMONARY ARTERY: The main pulmonary artery was normal-sized. RIGHT ATRIUM: The atrium was normal in size. No evidence of thrombus in the atrial cavity or appendage. The appendage was morphologically a right appendage. PERICARDIUM: There was no pericardial effusion. Prepared and signed by Camilo Vega [id number]
[2016-01-15] MEDS ORDERED: CEFTAROLINE INJ 600 MG in SODIUM CHLORIDE 0.9% INJ 100 ML IV SCH (13:00)
--- NOTE | 2016-01-15 13:20 | HHI.IDPN ---
Subjective Subjective Remarks is a 70 y/o CM with PMHx of HTN, DM, Hyperlipidemia and Neurogenic Bladder w/ Self Catheterization who was brought to the ER by EMS for c/o fever and elevated BS of 500 at home. Admitted with sepsis, now being evaluated and managed for MSSA bacteremia unclear source, ESBL and MSSA UTI in a patient that self caths at home. Overnight events reviewed. No fevers, occ hypothermia. UO ok No rash No diarrhea Alert, responds to questions better today. Antibiotics Ancef IV Ertapenem IV Lines Line sites with no e/o infection. Past Medical History reviewed. Allergies: Coded Allergies: *MDRO Multi-Drug Resistant Organism (Verified Adverse Reaction, Unknown, 01/13/16) ESBL+E.Coli (urine-01/11/16) Objective . Vital Signs Date Time Temp Pulse Resp B/P Pulse Ox O2 Delivery O2 Flow Rate FiO2 01/15/16 08:00 97.4 101 18 140/76 95 01/15/16 04:00 99.9 105 16 167/79 93 01/15/16 00:00 96.7 103 16 166/81 96 01/14/16 21:12 98.5 01/14/16 20:00 96.8 109 16 123/70 91 01/14/16 17:30 100.4 109 24 147/83 95 01/14/16 01/14/16 01/15/16 14:59 22:59 06:59 Intake Total 240 ml 2935 ml 955 ml Output Total 1950 ml 900 ml 1000 ml Balance -1710 ml 2035 ml -45 ml Intake Oral 240 ml 240 ml 0 ml IV Total 2695 ml 955 ml Output Urine Total 1950 ml 900 ml 1000 ml # Bowel Movements 0 0 . Laboratory Tests Test 01/14/16 01/15/16 05:21 05:23 White Blood Count 15.0 TH/MM3 15.9 TH/MM3 Red Blood Count 3.41 MIL/MM3 3.11 MIL/MM3 Hemoglobin 10.1 GM/DL 9.3 GM/DL Hematocrit 30.3 % 27.7 % Mean Corpuscular Volume 89.0 FL 89.0 FL Mean Corpuscular Hemoglobin 29.7 PG 29.9 PG Mean Corpuscular Hemoglobin 33.4 % 33.6 % Concent Red Cell Distribution Width 13.5 % 13.5 % Platelet Count 201 TH/MM3 222 TH/MM3 Mean Platelet Volume 9.3 FL 9.4 FL Neutrophils (%) (Auto) 86.9 % 85.9 % Lymphocytes (%) (Auto) 7.3 % 7.9 % Monocytes (%) (Auto) 5.1 % 5.0 % Eosinophils (%) (Auto) 0.6 % 0.5 % Basophils (%) (Auto) 0.1 % 0.7 % Neutrophils # (Auto) 13.0 TH/MM3 13.6 TH/MM3 Lymphocytes # (Auto) 1.1 TH/MM3 1.3 TH/MM3 Monocytes # (Auto) 0.8 TH/MM3 0.8 TH/MM3 Eosinophils # (Auto) 0.1 TH/MM3 0.1 TH/MM3 Basophils # (Auto) 0.0 TH/MM3 0.1 TH/MM3 CBC Comment DIFF FINAL DIFF FINAL Differential Comment Laboratory Tests Test 01/14/16 01/15/16 05:21 05:23 Sodium Level 139 MEQ/L 137 MEQ/L Potassium Level 2.9 MEQ/L 2.8 MEQ/L Chloride Level 105 MEQ/L 102 MEQ/L Carbon Dioxide Level 24.7 MEQ/L 24.8 MEQ/L Anion Gap 9 MEQ/L 10 MEQ/L Blood Urea Nitrogen 42 MG/DL 37 MG/DL Creatinine 2.18 MG/DL 2.01 MG/DL Estimat Glomerular Filtration 30 ML/MIN 33 ML/MIN Rate Random Glucose 241 MG/DL 211 MG/DL Calcium Level 7.6 MG/DL 7.4 MG/DL Magnesium Level 1.8 MG/DL 1.7 MG/DL Protein Corrected Calcium 8.3 MG/DL Total Creatine Kinase 182 U/L Total Protein 5.5 GM/DL Microbiology Date/Time Procedure Status Source Growth 01/12/16 18:40 Aerobic Blood Culture - Final Resulted Blood Peripheral Staphylococcus Aureus 01/12/16 18:40 Anaerobic Blood Culture - Preliminary Resulted Blood Peripheral NO GROWTH IN 3 DAYS 01/12/16 19:00 Aerobic Blood Culture - Final Resulted Blood Peripheral Staphylococcus Aureus 01/12/16 19:00 Anaerobic Blood Culture - Preliminary Resulted Blood Peripheral NO GROWTH IN 3 DAYS 01/13/16 16:10 Aerobic Blood Culture - Preliminary Resulted Blood Peripheral Gram Positive Cocci 01/13/16 16:10 Anaerobic Blood Culture - Preliminary Resulted Blood Peripheral NO GROWTH IN 2 DAYS 01/13/16 16:15 Aerobic Blood Culture - Final Resulted Blood Peripheral Staphylococcus Aureus 01/13/16 16:15 Anaerobic Blood Culture - Preliminary Resulted Blood Peripheral NO GROWTH IN 2 DAYS 01/14/16 12:25 Aerobic Blood Culture - Preliminary Resulted Blood Peripheral Gram Positive Cocci 01/14/16 12:25 Anaerobic Blood Culture - Preliminary Resulted Blood Peripheral NO GROWTH IN 1 DAY 01/14/16 12:30 Aerobic Blood Culture - Preliminary Resulted Blood Peripheral Gram Positive Cocci 01/14/16 12:30 Anaerobic Blood Culture - Preliminary Resulted Blood Peripheral NO GROWTH IN 1 DAY Imaging Last Impressions Myocardial Perfusion Scan Nuc Med 01/13/16 0000 Signed Impressions: Service Date/Time: Wednesday, January 13, 2016 10:52 - CONCLUSION: Small size, moderate severity nonreversible apical perfusion abnormality. RISK CATEGORY: Low (<1%% Annual Mortality Rate) Jayce Ham MD Shoulder X-Ray 01/12/16 0000 Signed Impressions: Service Date/Time: Tuesday, January 12, 2016 09:24 - CONCLUSION: 1. No acute fracture or subluxation of the left shoulder. 2. Probably an old fracture of the distal clavicle, healed. 3. 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 Jayce Ng MD Lower Extremity Ultrasound 01/11/16 1600 Signed Impressions: Service Date/Time: Monday, January 11, 2016 17:13 - CONCLUSION: 1. Nonocclusive thrombus in the popliteal vein and peroneal tributary. More central venous system is sonographically normal. 2. Tube like graft/stent in the right groin region with a surrounding hypoechoic region which does not show color Doppler flow. Diagnostic considerations include a thrombosed aneurysm treated with a covered stent/graft versus fluid around the regional vasculature. The latter would be concerning for possible perivascular infection. If patient's symptomatology is characteristic of an infectious or inflammatory process, CTA of the pelvis would be recommended for further characterization.. Carroll Arteaga MD Knee X-Ray 01/11/16 5687 Signed Impressions: Service Date/Time: Monday, January 11, 2016 16:43 - CONCLUSION: Small joint effusion. Jessica Blackburn MD Chest X-Ray 01/11/16 0728 Signed Impressions: Service Date/Time: Monday, January 11, 2016 16:40 - CONCLUSION: No acute cardiopulmonary disease. Jessica Blackburn MD Physical Exam GENERAL: Thin built, Under nourished, well developed patient, in no apparent distress. SKIN: No rashes. HEAD: Atraumatic. Normocephalic. No temporal or scalp tenderness. EYES: Pupils equal round and reactive. Extraocular motions intact. No scleral icterus. No injection or drainage. ENT: Nose without bleeding, purulent drainage or septal hematoma. Throat without erythema, tonsillar hypertrophy or exudate. Uvula midline. Airway patent. NECK: Trachea midline. Supple, nontender, no meningeal signs. CARDIOVASCULAR: RRR, murmur. RESPIRATORY: Clear to auscultation. Breath sounds equal bilaterally. GASTROINTESTINAL: Abdomen soft, tenderness noted in Suprapubic region. MUSCULOSKELETAL: RLE with significant swelling noted. Tender to touch. Slight erythema. Right foot plantar aspect with multiple septic emboli noted. Left elbow with significant swelling and fluctuance noted. Mild erythema, tender and decreased ROM. NEUROLOGICAL: Awake and alert. Responds to questions but sluggish. Psych: cooperative IV line sites with no e.o infection Assessment & Plan Remarks Sepsis present on admission (patient was on antibiotics prior to admission ?). Fever, elevated WBC and bacteremia as source. MSSA bacteremia, endocarditis: ? line at other hospital, ? infected aneurysm ? left elbow bursitis or septic arthritis. MSSA and ESBL E.coli UTI and Emphysematous Cystitis: Patient self catheterizes at home. Neurogenic bladder. Pneumnoia Persistent bacteremia: sources are being looked at as source control will help control bacteremia. Acute metabolic encephalopathy: likely sepsis related. Acute renal failure: ? sepsis related, baseline not known. DM uncontrolled on admission. DVT Right LE Recent admission at [facility] as risk factor for infection. Elevated troponins likely from infection Recs Continue Ancef IV q8 hrs Continue Ertapenem IV (ASP criteria: ESBL UTI/emphysematous cystitis present on admission in a patient that self catheterizes at home) Start Teflaro IV (ASP criteria: persistent bacteremia cannot use Genta IV) Start Rifampin oral (has a graft material in thigh) Repeat blood cultures x [address] C/A/P: septic emboli, Emphysematous cystitis. CHUCHO negative but has evidence of septic emboli (likely showered all emboli to periphery) records still pending checked chart and with RN. Asked unit operator to refax and call for records. NM scan with some abnormalities of apical perfusion. Follow clinically. d/w patient and RN. Anali Beaver MD Jan 15, 2016 13:20
[2016-01-15] MEDS: RIFAMPIN 150 MG CAP PO SCH ×2 (14:20→20:20)
[2016-01-15] MEDS: CEFTAROLINE IV SCH ×2 (14:21)
[2016-01-15] MEDS: SODIUM CHLORIDE IV SCH ×2 (14:21)
[2016-01-15 16:00] VITALS: BP 167/90; PULSE 100; RESP 18; TEMP 98.5; O2SAT 96
--- NOTE | 2016-01-15 16:42 | RADRPT ---
EXAM DATE/TIME: 01/15/2016 15:51 [facility] COMPARISON: No previous studies available for comparison. INDICATIONS : Neck swelling; evaluate for abscess. RADIATION DOSE: 18.71 CTDIvol (mGy) MEDICAL HISTORY : Cardiovascular disease. Hypertension. SURGICAL HISTORY : None. ENCOUNTER: Initial ACUITY: 1 day PAIN SCALE: 6/10 LOCATION: neck TECHNIQUE: Volumetric scanning of the cervical spine was performed. Multiplanar reconstructions in the sagittal, coronal and oblique axial planes were performed. Using automated exposure control and adjustment o f the mA and/or kV according to patient size, radiation dose was kept as low as reasonably achievable to obtain optimal diagnostic quality images. FINDINGS: Motion artifact degrades the exam. No abscess or mass is observed. No fluid collections seen. No infl ammatory process appreciated. Calcified plaque throughout the carotid arteries bilaterally. Multileve l degenerative changes of the cervical spine including areas of narrowing the central canal throughou t. Multilevel neural foraminal narrowing. CONCLUSION: No abscess observed. John Mills Jr., MD on January 15, 2016 at 16:36 Board Certified Radiologist. This report was verified electronically.
--- NOTE | 2016-01-15 16:44 | RADRPT ---
EXAM DATE/TIME: 01/15/2016 16:08 [facility] COMPARISON: ELBOW LEFT LIMITED (AP & LAT), January 14, 2016, 13:05. INDICATIONS : Left elbow pain and swelling; evaluate for abscess. RADIATION DOSE: 39.25 CTDIvol (mGy) MEDICAL HISTORY : Hypertension. Cardiovascular disease SURGICAL HISTORY : None. ENCOUNTER: Initial ACUITY: 1 day PAIN SCALE: 6/10 LOCATION: Left Elbow TECHNIQUE: Volumetric scanning of the elbow was performed. Using automated exposure control and adjustment of t he mA and/or kV according to patient size, radiation dose was kept as low as reasonably achievable to obtain optimal diagnostic quality images. FINDINGS: BONES: No evidence of fracture. Alignment is within normal limits. Small olecranon spur JOINTS: No evidence of joint narrowing or effusion. SOFT TISSUES: Muscles, tendons and neurovascular structures are grossly unremarkable. No evidence of mass, organize d fluid collection, or foreign body. CONCLUSION: Small olecranon spur. Intact bony structures. No evidence of fluid collection or abscess formation Arian Stoen MD on January 15, 2016 at 16:39 Board Certified Radiologist. This report was verified electronically.
--- NOTE | 2016-01-15 16:51 | PQ ---
Physician Query Response Document PATIENT: NOEMI REED : 1945 ADMIT DATE: 01/11/2016 6:48 PM DISCH DATE: RESPONDING PROVIDER #: rleger QUERY TEXT: Cause and Effect Relationship Please clarify in documentation in the Medical Record the relationship, if any, between _UTI_and_SELF CATHETERIZATION_ utilizing terminology such as: -- Conditions are due to or associated with each other -- Conditions are unrelated to each other -- Other (please specify in the medical record) The patient's Clinical Indicators include: 01/11/16 Assessment and Plan A/P: 1. Sepsis: Temp 102.0 in field, HR 120's, WBC 27.6, Source-UTI. CXR negative, images reviewed by radha arellano S/p Blood/Urine Cultures, IV Vanc/Zosyn. Recent admit at for Sepsis, pt unable to provide fur ther details, except states WBC was 35. Follow up cultures, continue IV Vanc/Cefepime. 2. UTI: U/a positive for UTI. +self catheterization. Will continue w/ IV Abx, IVF. 3. Neurogenic Bladder: Self catheterization as needed. PER 01/13/16 ESTUARDO KUNZ PROGRESS NOTES - Admitted with sepsis, now being evaluated and managed for MSSA alexandre teremia unclear source, ESBL and MSSA UTI in a patient that self caths at home. Query created by: Sary Baker on 01/14/2016 1:56 PM RESPONSE TEXT: Associated w each other Electronically signed by: Graciela Woo MD 01/15/2016 4:47 PM
--- NOTE | 2016-01-15 20:07 | MB ---
cc: TAMI BENNETT M.D. DATE OF CONSULTATION 01/15/[address] Woo CONSULTATIONS Hematology consulted to render opinion regarding a patient with a DVT of the right lower extremity and right upper extremity. HISTORY OF PRESENT ILLNESS The patient is a 70-year-old male who presented January 10 after found down and brought into the hospital by EMS. Prior to presentation she was admitted to [facility] for sepsis and urinary tract infection. He said he was there for about a week and then discharged home. He became very weak again. Reportedly had temperature up to 102. He was noted with elevated blood glucose. He was admitted for sepsis. He was noted to have right lower extremity pain, edema and ultrasound done that showed nonocclusive thrombus in the popliteal vein and peroneal vein. Yesterday he also had an upper extremity ultrasound which showed nonocclusive DVT in the right brachial vein. The patient is rather weak and he is not a very good historian. He is not sure if he had an IV line or PICC line placed on his right arm. He stated that when he fell he was laying on the floor for several hours. He denies any chest pressure. He denies any shortness of breath or cough. Denies any nausea, vomiting, diarrhea, abdominal pain. PAST MEDICAL HISTORY Neurogenic bladder, hypertension and diabetes mellitus, hyperlipidemia, hepatitis C, recently had treatment [facility]. PAST SURGICAL HISTORY Right lower extremity stent. FAMILY HISTORY Noncontributory. SOCIAL HISTORY No tobacco or alcohol use. ALLERGIES NO KNOWN DRUG ALLERGIES. CURRENT MEDICATIONS 1. Atorvastatin. 2. Ceftaroline. 3. Fosamil. 4. Rifampin. 5. Norvasc. 6. Cephazolin. 7. Ertapenem. 8. Heparin. REVIEW OF SYSTEMS CONSTITUTIONAL: He has increased weakness and weight loss. EYES: Denies any blurry vision, double vision. ENT: No mouth or voice changes. CARDIOVASCULAR: No chest pressure, palpitation. RESPIRATORY: Denies shortness of breath or cough. GI: Denies any nausea, vomiting, diarrhea, abdominal pain. : As above. MUSCULOSKELETAL: Some pain in the right lower extremity. HEMATOLOGY as above. ENDOCRINE: Negative. DERMATOLOGY: Negative. PSYCHIATRIC: Negative. NEUROLOGIC: Negative. PHYSICAL EXAMINATION VITAL SIGNS: Temperature 97.2, blood pressure 136/72, O2 saturation 97%. GENERAL: He is alert and oriented x3. He looks very weak. HEENT: Atraumatic, normocephalic. Pupils equal, round and reactive to light. Extraocular muscle intact. No scleral icterus. Oropharynx dry mucosa, no lesion or thrush or mucositis. NECK: No thyromegaly. No palpable masses. LYMPATHICS: No palpable cervical, clavicular, axillary or inguinal lymph node. CARDIOVASCULAR: Regular S1-S2 normal. LUNGS: Clear to auscultation bilaterally. No wheezing or rhonchi. ABDOMEN: Soft and nontender. Could not palpate liver or spleen. EXTREMITIES: No cyanosis. Has edema of the right lower extremity, a little tender in the right calf. SKIN: No rash. No petechia. NEUROLOGIC: Nonfocal. LABORATORY DATA Reviewed. ASSESSMENT 1. Right lower extremity deep venous thrombosis and right upper extremity deep venous thrombosis. I think this is triggered by sepsis and immobility. He was laying on the floor for several hours the day prior to presentation. It is possible he had developed a blood clot because he was laying on his right side that may have obstructed his blood flow. There is also a possibility that he had a PICC line placed on the right upper extremity during his hospital stay at [facility] a week prior to presentation. In any way, the thrombosis appeared to be provoked. He was started on heparin drip. Due to his significant renal failure I think the best anticoagulation for him is Coumadin. He can be bridged to Coumadin once he is done with all the procedures. 2. Sepsis likely from urinary tract infection. He has bacteremia, he is currently on antibiotic per infectious disease. 3. Neurogenic bladder with recurrent urinary tract infection. He has been evaluated by urology. He has been self-catheterizing. 4. Diabetes mellitus. 5. Hepatitis C. He was receiving treatment at [facility]. RECOMMENDATIONS 1. Agree with heparin drip and bridging him to Coumadin once he is done with all the procedure. 2. Continue antibiotic per infectious disease. 3. Continue supportive care. 4. His blood clot appeared to be provoked and recommend he stay on anticoagulation for 6-months and until he is fully mobile. Thank you Dr. Woo for asking me to see this patient. MD NTETA Perez/MARIO /5:12 PM /7:37 PM KIRSTIE
[2016-01-15] MEDS: ATORVASTATIN 40 MG TAB PO SCH (20:20)
[2016-01-15 20:45] VITALS: BP 166/86; PULSE 100; RESP 20; TEMP 99.1; O2SAT 95
[2016-01-16 00:30] VITALS: BP 165/82; PULSE 107; RESP 20; TEMP 97.9; O2SAT 94
[2016-01-16] MEDS: HEPARIN-D5W INJ 250 ML IV SCH ×2 (01:29→20:58)
[2016-01-16] MEDS: SODIUM CHLORIDE IV SCH ×4 (01:40→14:00)
[2016-01-16] MEDS: CEFTAROLINE IV SCH ×4 (01:40→14:00)
[2016-01-16] MEDS: SODIUM CHLORID 0.9% 500 ML IV SCH (03:40)
[2016-01-16 04:00] VITALS: BP 158/84; PULSE 106; RESP 20; TEMP 99; O2SAT 94
[2016-01-16] MEDS: ceFAZolin 2 GM PREMIX 50 ML IV SCH ×3 (05:07→22:41)
[2016-01-16] MEDS: ACETAMINOPHEN/HYDROcodone 325 MG/5 MG TAB PO PRN (05:37)
[2016-01-16] MEDS: INSULIN ASPART SUPPLEMENTAL SCALE SQ SCH ×4 (06:07→22:53)
[2016-01-16 07:15] LABS: AUTOMATED NEUTROPHIL # 15.5 TH/MM3 (1.8-7.7); BASOPHIL % 0.1 % (0.0-2.0); EOSINOPHIL % 0.2 % (0.0-4.0); HEMATOCRIT 30.4 % (39.0-51.0); LYMPHOCYTE # 1.3 TH/MM3 (1.0-4.8); MEAN CELL VOLUME 89.7 FL (80.0-100.0); MEAN CORPUSCULAR HEMOGLOBIN 29.8 PG (27.0-34.0); MEAN CORPUSCULAR HGB CONC 33.2 % (32.0-36.0); MONO % 5.9 % (0.0-8.0); NEUT % 86.8 % (16.0-70.0); PLATELET COUNT 255 TH/MM3 (150-450); RED BLOOD COUNT 3.39 MIL/MM3 (4.50-5.90); RED CELL DISTRIBUTION WIDTH 13.6 % (11.6-17.2); WHITE BLOOD COUNT 17.9 TH/MM3 (4.0-11.0)
[2016-01-16 07:28] LABS: APTT (PATIENT) 51.6 SEC (24.3-30.1)
[2016-01-16 07:29] LABS: HEMO FLAGS AUTO DIFF
[2016-01-16 07:44] LABS: BICARBONATE 23.8 MEQ/L (21.0-32.0); MAGNESIUM 1.8 MG/DL (1.5-2.5)
[2016-01-16 07:46] LABS: POTASSIUM 2.6 MEQ/L (3.5-5.1)
[2016-01-16] MEDS: amLODIPine BESYLATE 5 MG TAB PO SCH (08:57)
[2016-01-16] MEDS: CALCIUM CARBONATE 500 MG CHEWABLE TAB CHEW SCH ×2 (08:57→20:53)
[2016-01-16] MEDS: RIFAMPIN 150 MG CAP PO SCH ×2 (08:57→20:53)
[2016-01-16 08:59] LABS: BANDS 3 % (0-6); NEUTROPHIL # MANUAL DIFF 16.8 TH/MM3 (1.8-7.7); POLYS (SEG NEUTROPHILS) 91 % (16-70); WBC DIFF SAMPLE 100
[2016-01-16] MEDS: SODIUM CHLORIDE 0.9% FLUSH 5 ML FLUSH FLUSH SCH ×2 (09:00→20:53)
[2016-01-16 09:01] VITALS: BP 141/79; PULSE 98; RESP 20; TEMP 97.7; O2SAT 93
[2016-01-16 09:01] LABS: PLATELET ESTIMATE SMEAR NORMAL (NORMAL); PLATELET MORPHOLOGY NORMAL (NORMAL); SCAN/DIFF FINAL DIFF MANUAL
[2016-01-16] MEDS: LACTATED RINGER'S 1000 ML IV SCH (11:00)
--- NOTE | 2016-01-16 11:28 | HHI.PR ---
Subjective Remarks Pt denies abdominal pain, dyspnea. Does c/o mild pain in RLE when examined - however patient does not volunteer information. Objective Vitals Vital Signs Date Time Temp Pulse Resp B/P Pulse Ox O2 Delivery O2 Flow Rate FiO2 01/16/16 09:01 97.7 98 20 141/79 93 01/16/16 06:40 17 01/16/16 04:00 99.0 106 20 158/84 94 01/16/16 00:30 97.9 107 20 165/82 94 01/15/16 20:45 99.1 100 20 166/86 95 01/15/16 16:00 98.5 100 18 167/90 96 01/15/16 12:00 97.2 100 16 136/72 97 I/O 01/15/16 01/15/16 01/15/16 01/16/16 01/16/16 01/16/16 07:00 15:00 23:00 07:00 15:00 23:00 Intake Total 955 ml 200 ml Output Total 1000 ml 1675 ml 500 ml 525 ml Balance -45 ml -1475 ml -500 ml -525 ml Intake Oral 0 ml 200 ml IV Total 955 ml Output Urine Total 1000 ml 1675 ml 500 ml 525 ml # Bowel Movements 0 Result Diagram: 01/16/1642 01/16/1642 Objective Remarks GENERAL: Reinaldo lofton CM patient in NAD. SKIN: Warm and dry. HEAD: Normocephalic. EYES: No scleral icterus. No injection or drainage. NECK: Supple, trachea midline. No JVD or lymphadenopathy. CARDIOVASCULAR: Regular rate and rhythm without murmurs, gallops, or rubs. RESPIRATORY: Breath sounds equal bilaterally. No accessory muscle use. GASTROINTESTINAL: Abdomen soft, non-tender, nondistended. EXTREMITIES: 1+ right pedal edema. NEUROLOGICAL: Awake, alert, and oriented x 3. Non-focal. Flat affect. difficult to understand speech as he is eating a popsicle. A/P Problem List: (1) Sepsis ICD Code: A41.9 Status: Resolved (2) UTI (urinary tract infection) ICD Code: N39.0 Status: Acute (3) Neurogenic bladder ICD Code: N31.9 Status: Acute (4) Acute on chronic renal insufficiency ICD Code: N28.9 Status: Acute (5) Rhabdomyolysis ICD Code: M62.82 Status: Acute (6) Elevated troponin ICD Code: R79.89 Status: Acute (7) DVT (deep venous thrombosis) ICD Code: I82.409 Status: Acute (8) DM (diabetes mellitus) ICD Code: E11.9 Status: Chronic Assessment and Plan 1. Sepsis, persistent MSSA bacteremia, with stigmata of endocarditis despite negative echocardiogram. Has fem pop graft in RLE with surrounding fluid which may be infected aneurysm. unable to do CTA at this time due to CKD. Vital signs stable, but persistent leukocytosis and bacteremia. ID on case/Dr. Beaver, continue IV antibiotics. 2. Severe emphysematous UTI (recurrent or worsening as compared to previous CT done 09/2014) - with air in the extraperitoneal pelvis suggestive of possible developing fistula or bladder perforation. Urine cx growing E. Coli ESBL and staph aureus. I discussed in detail with Dr. Beaver and Dr. Lopez. Plan is to continue paul and antibiotics for some weeks and repeat CT in 2 weeks as usually extraperitoneal bladder perforation will heal on their own. 2. UTI: U/a positive for UTI. +self catheterization. Will continue w/ IV Abx , IVF. see above. Urology consult in place as pt found to have worsening emphysematous cystitis which has worsened compared to I discussed the case w Dr. Lopez who recommends keeping paul in place and continuing IV abx for now. Appreciate assistance. 3. Urinary retention possibly due to neurogenic bladder - self catheterizes at home. Continue paul as per urology. 4. Acute on Chronic kidney injury: Creatinine 3.55 on admission, improved now down to 2. Continue IVF hydration. 5. Rhabdomyolysis: resolved. CPK 573, IVF for hydration, check serial CPK for trend. Per EMS, pt found lying on bathroom floor by neighbor yesterday, pt denies any trauma, states he was tired and just wanted to lie down. Now complaining of left shoulder pain and per daughter he also had been complaining of right shoulder pain. x-ray of shoulder didn't show any acute fx. Pt still having difficulty moving his left upper extremity although today he has move movement compared to yesterday. PT/OT following. OT does recommend inpatient rehab. 6. Elevated Trop: Trop 0.07, EKG w/ no acute changes. Likely secondary to worsening renal function. ECHO which showed EF 55-60%. stress test showed " Small size, moderate severity nonreversible apical perfusion abnormality, low risk". Appreciate cardiology input. 7. DM type 2: Uncontrolled. Hgb A1c 8.0. Continue sliding scale w/ Accu- Cheks. Consider starting basal insulin. 8. DVT of right upper popliteal and peroneal tributary, and of right upper extremity in the brachial vein. Also noted to have right graft/stent w/ surrounding hypoechoic region, possibly thrombosed aneurysm vs perivascular infection, possible source of infection, recommendation for CTA Pelvis, however unable to obtain secondary to renal function. Continue heparin drip until able to bridge to coumadin. Will need at least 3 months AC for provoked DVT, appreciate hematology input. 9. Left elbow swelling: Orthopedic evaluated pt, CT elbow negative for effusion or abscess. Appreciate assistance. 10. Acute metabolic encephalopathy - improving with treatment of underlying medical illnesses. Mental status still not quite back to baseline as per family. 11. Severe, persistent hypokalemia - continue repletion. may need to investigate underlying causes as no evidence of GI loss. 12. Continue PT/OT. 13. Guarded prognosis. 14. DVT Prophylaxis: As above, on Heparin gtt Problem Qualifiers (1) Sepsis: Qualified Code: A41.01 - Sepsis due to Methicillin susceptible Staphylococcus aureus (2) DVT (deep venous thrombosis): Qualified Code: I82.431 - Deep vein thrombosis (DVT) of popliteal vein of right lower extremity, unspecified chronicity (3) DM (diabetes mellitus): Melissa Giles MD Jan 16, 2016 11:28
[2016-01-16] MEDS: POTASSIUM CHLOR 20 MEQ PREMIX 100 ML IV SCH ×2 (11:29→18:33)
--- NOTE | 2016-01-16 11:29 | HHI.PR ---
Subjective Remarks Pt seen and examined. No abdominal pain. Alert and awake this AM. Desires to get OOB. Objective Vital Signs Vital Signs Date Time Temp Pulse Resp B/P Pulse Ox O2 Delivery O2 Flow Rate FiO2 01/16/16 09:01 97.7 98 20 141/79 93 01/16/16 06:40 17 01/16/16 04:00 99.0 106 20 158/84 94 01/16/16 00:30 97.9 107 20 165/82 94 01/15/16 20:45 99.1 100 20 166/86 95 01/15/16 16:00 98.5 100 18 167/90 96 01/15/16 12:00 97.2 100 16 136/72 97 I/O 01/15/16 01/15/16 01/15/16 01/16/16 01/16/16 01/16/16 07:00 15:00 23:00 07:00 15:00 23:00 Intake Total 955 ml 200 ml Output Total 1000 ml 1675 ml 500 ml 525 ml Balance -45 ml -1475 ml -500 ml -525 ml Intake Oral 0 ml 200 ml IV Total 955 ml Output Urine Total 1000 ml 1675 ml 500 ml 525 ml # Bowel Movements 0 Result Diagram: 01/16/16 0542 01/16/16 0542 Objective Remarks Abd: soft,nt,nd Paul with some sediment Ext: Right LE edema Assessment and Plan Assessment and Plan 70 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 Continue IV ABX Will perform another imaging study in 1-2 weeks. Crescencio Lopez DO Jan 16, 2016 11:29
[2016-01-16 13:00] VITALS: BP 134/83; PULSE 94; RESP 18; O2SAT 94
--- NOTE | 2016-01-16 14:07 | PD.ORT.PN ---
Subjective Pain Scale: minimal Subjective Remarks ok Objective Vitals Vital Signs Date Time Temp Pulse Resp B/P Pulse Ox O2 Delivery O2 Flow Rate FiO2 01/16/16 09:01 97.7 98 20 141/79 93 01/16/16 06:40 17 01/16/16 04:00 99.0 106 20 158/84 94 01/16/16 00:30 97.9 107 20 165/82 94 01/15/16 20:45 99.1 100 20 166/86 95 01/15/16 16:00 98.5 100 18 167/90 96 I/O 01/15/16 01/15/16 01/15/16 01/16/16 01/16/16 01/16/16 07:00 15:00 23:00 07:00 15:00 23:00 Intake Total 955 ml 200 ml Output Total 1000 ml 1675 ml 500 ml 525 ml Balance -45 ml -1475 ml -500 ml -525 ml Intake Oral 0 ml 200 ml IV Total 955 ml Output Urine Total 1000 ml 1675 ml 500 ml 525 ml # Bowel Movements 0 Result Diagram: 01/16/16 0542 01/16/16 0542 Objective Remarks L UPPER EXT NVI FULL PROM L ELBOW MIN TENDERSON TO L OLECRANON NO ERYTHEMA SKIN THICKENING NO WARMTH Assessment & Plan Assessment and Plan NO EVID OF LEFT ELBOW SEPTIC OLEC BURSITIS ON EXAM OR CT ICING AVOID PRESSURE TO ELBOW RE CONSULT NEEDED Jose Alberto Waldron MD Jan 16, 2016 14:06
--- NOTE | 2016-01-16 14:08 | HHI.IDPN ---
Subjective Subjective Remarks is a 70 y/o CM with PMHx of HTN, DM, Hyperlipidemia and Neurogenic Bladder w/ Self Catheterization who was brought to the ER by EMS for c/o fever and elevated BS of 500 at home. Admitted with sepsis, now being evaluated and managed for MSSA bacteremia unclear source, ESBL and MSSA UTI in a patient that self caths at home. Overnight events reviewed. No fevers, occ hypothermia. UO ok No rash No diarrhea Alert, responds to questions better today. Antibiotics Ancef IV Ertapenem IV Teflaro IV Rifampin oral Lines Line sites with no e/o infection. Past Medical History reviewed. Allergies: Coded Allergies: *MDRO Multi-Drug Resistant Organism (Verified Adverse Reaction, Unknown, 01/13/16) ESBL+E.Coli (urine-01/11/16) Objective . Vital Signs Date Time Temp Pulse Resp B/P Pulse Ox O2 Delivery O2 Flow Rate FiO2 01/16/16 09:01 97.7 98 20 141/79 93 01/16/16 06:40 17 01/16/16 04:00 99.0 106 20 158/84 94 01/16/16 00:30 97.9 107 20 165/82 94 01/15/16 20:45 99.1 100 20 166/86 95 01/15/16 16:00 98.5 100 18 167/90 96 01/15/16 01/15/16 01/16/16 15:00 23:00 07:00 Intake Total 200 ml Output Total 1675 ml 500 ml 525 ml Balance -1475 ml -500 ml -525 ml Intake Oral 200 ml Output Urine Total 1675 ml 500 ml 525 ml . Laboratory Tests Test 01/15/16 01/16/16 05:23 05:42 White Blood Count 15.9 TH/MM3 17.9 TH/MM3 Red Blood Count 3.11 MIL/MM3 3.39 MIL/MM3 Hemoglobin 9.3 GM/DL 10.1 GM/DL Hematocrit 27.7 % 30.4 % Mean Corpuscular Volume 89.0 FL 89.7 FL Mean Corpuscular Hemoglobin 29.9 PG 29.8 PG Mean Corpuscular Hemoglobin 33.6 % 33.2 % Concent Red Cell Distribution Width 13.5 % 13.6 % Platelet Count 222 TH/MM3 255 TH/MM3 Mean Platelet Volume 9.4 FL 9.0 FL Neutrophils (%) (Auto) 85.9 % 86.8 % Lymphocytes (%) (Auto) 7.9 % 7.0 % Monocytes (%) (Auto) 5.0 % 5.9 % Eosinophils (%) (Auto) 0.5 % 0.2 % Basophils (%) (Auto) 0.7 % 0.1 % Neutrophils # (Auto) 13.6 TH/MM3 15.5 TH/MM3 Lymphocytes # (Auto) 1.3 TH/MM3 1.3 TH/MM3 Monocytes # (Auto) 0.8 TH/MM3 1.1 TH/MM3 Eosinophils # (Auto) 0.1 TH/MM3 0.0 TH/MM3 Basophils # (Auto) 0.1 TH/MM3 0.0 TH/MM3 CBC Comment DIFF FINAL AUTO DIFF Differential Comment FINAL DIFF MANUAL Differential Total Cells 100 Counted Neutrophils % (Manual) 91 % Band Neutrophils % 3 % Lymphocytes % 3 % Monocytes % 3 % Neutrophils # (Manual) 16.8 TH/MM3 Platelet Estimate NORMAL Platelet Morphology Comment NORMAL Red Cell Morphology Comment NORMAL Laboratory Tests Test 01/15/16 01/16/16 05:23 05:42 Sodium Level 137 MEQ/L 140 MEQ/L Potassium Level 2.8 MEQ/L 2.6 MEQ/L Chloride Level 102 MEQ/L 105 MEQ/L Carbon Dioxide Level 24.8 MEQ/L 23.8 MEQ/L Anion Gap 10 MEQ/L 11 MEQ/L Blood Urea Nitrogen 37 MG/DL 38 MG/DL Creatinine 2.01 MG/DL 2.03 MG/DL Estimat Glomerular Filtration 33 ML/MIN 33 ML/MIN Rate Random Glucose 211 MG/DL 225 MG/DL Calcium Level 7.4 MG/DL 7.5 MG/DL Protein Corrected Calcium 8.3 MG/DL Magnesium Level 1.7 MG/DL 1.8 MG/DL Total Creatine Kinase 182 U/L Total Protein 5.5 GM/DL Microbiology Date/Time Procedure Status Source Growth 01/13/16 16:10 Aerobic Blood Culture - Final Resulted Blood Peripheral Staphylococcus Aureus 01/13/16 16:10 Anaerobic Blood Culture - Preliminary Resulted Blood Peripheral NO GROWTH IN 3 DAYS 01/13/16 16:15 Aerobic Blood Culture - Final Resulted Blood Peripheral Staphylococcus Aureus 01/13/16 16:15 Anaerobic Blood Culture - Preliminary Resulted Blood Peripheral NO GROWTH IN 3 DAYS 01/14/16 12:25 Aerobic Blood Culture - Final Resulted Blood Peripheral Staphylococcus Aureus 01/14/16 12:25 Anaerobic Blood Culture - Preliminary Resulted Blood Peripheral NO GROWTH IN 2 DAYS 01/14/16 12:30 Aerobic Blood Culture - Final Resulted Blood Peripheral Staphylococcus Aureus 01/14/16 12:30 Anaerobic Blood Culture - Preliminary Resulted Blood Peripheral NO GROWTH IN 2 DAYS 01/15/16 13:45 Aerobic Blood Culture - Preliminary Resulted Blood Peripheral NO GROWTH IN 1 DAY 01/15/16 13:45 Anaerobic Blood Culture - Preliminary Resulted Blood Peripheral NO GROWTH IN 1 DAY 01/15/16 13:46 Aerobic Blood Culture - Preliminary Resulted Blood Peripheral NO GROWTH IN 1 DAY 01/15/16 13:46 Anaerobic Blood Culture - Preliminary Resulted Blood Peripheral NO GROWTH IN 1 DAY Imaging Last Impressions Myocardial Perfusion Scan Nuc Med 01/13/16 0000 Signed Impressions: Service Date/Time: Wednesday, January 13, 2016 10:52 - CONCLUSION: Small size, moderate severity nonreversible apical perfusion abnormality. RISK CATEGORY: Low (<1%% Annual Mortality Rate) Jayce Ham MD Shoulder X-Ray 01/12/16 0000 Signed Impressions: Service Date/Time: Tuesday, January 12, 2016 09:24 - CONCLUSION: 1. No acute fracture or subluxation of the left shoulder. 2. Probably an old fracture of the distal clavicle, healed. 3. 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 Jayce Ng MD Lower Extremity Ultrasound 01/11/16 1600 Signed Impressions: Service Date/Time: Monday, January 11, 2016 17:13 - CONCLUSION: 1. Nonocclusive thrombus in the popliteal vein and peroneal tributary. More central venous system is sonographically normal. 2. Tube like graft/stent in the right groin region with a surrounding hypoechoic region which does not show color Doppler flow. Diagnostic considerations include a thrombosed aneurysm treated with a covered stent/graft versus fluid around the regional vasculature. The latter would be concerning for possible perivascular infection. If patient's symptomatology is characteristic of an infectious or inflammatory process, CTA of the pelvis would be recommended for further characterization.. Carroll Arteaga MD Knee X-Ray 01/11/16 1555 Signed Impressions: Service Date/Time: Monday, January 11, 2016 16:43 - CONCLUSION: Small joint effusion. Jessica Blackburn MD Chest X-Ray 01/11/16 6055 Signed Impressions: Service Date/Time: Monday, January 11, 2016 16:40 - CONCLUSION: No acute cardiopulmonary disease. Jessica Blackburn MD Physical Exam GENERAL: Thin built, Under nourished, well developed patient, in no apparent distress. SKIN: No rashes. HEAD: Atraumatic. Normocephalic. No temporal or scalp tenderness. EYES: Pupils equal round and reactive. Extraocular motions intact. No scleral icterus. No injection or drainage. ENT: Nose without bleeding, purulent drainage or septal hematoma. Throat without erythema, tonsillar hypertrophy or exudate. Uvula midline. Airway patent. NECK: Trachea midline. Supple, nontender, no meningeal signs. CARDIOVASCULAR: RRR, murmur. RESPIRATORY: Clear to auscultation. Breath sounds equal bilaterally. GASTROINTESTINAL: Abdomen soft, tenderness noted in Suprapubic region. MUSCULOSKELETAL: RLE with significant swelling noted. Tender to touch. Slight erythema. Right foot plantar aspect with multiple septic emboli noted. Left elbow with significant swelling and fluctuance noted. Mild erythema, tender and decreased ROM. NEUROLOGICAL: Awake and alert. Responds to questions but sluggish. Psych: cooperative IV line sites with no e.o infection Assessment & Plan Remarks Sepsis present on admission (patient was on antibiotics prior to admission ?). Fever, elevated WBC and bacteremia as source. MSSA bacteremia, endocarditis: ? line at other hospital, ? infected aneurysm ? left elbow bursitis or septic arthritis. MSSA and ESBL E.coli UTI and Emphysematous Cystitis: Patient self catheterizes at home. Neurogenic bladder. Pneumnoia Persistent bacteremia: sources are being looked at as source control will help control bacteremia. Acute metabolic encephalopathy: likely sepsis related improving. Acute renal failure: ? sepsis related, baseline not known. DM uncontrolled on admission. DVT Right LE Recent admission at [facility] as risk factor for infection. Elevated troponins likely from infection Recs Continue Ancef IV q8 hrs equivalent renal dose adjusted. Continue Ertapenem IV (ASP criteria: ESBL UTI/emphysematous cystitis present on admission in a patient that self catheterizes at home) Continue Teflaro IV (ASP criteria: persistent bacteremia cannot use Genta IV) will likely stop in am if cultures remain negative. Continue Rifampin oral (has a graft material in thigh) CT C/A/P: septic emboli, Emphysematous cystitis. Reviewed past and current images with Urology. Emphysematous changes appear increased compared to a year back. ? recurrent or chronic infections related. Also noted inguinal and pelvic basin free air. recommends continuing ABX at this time and re-image in 7-10 days during this hospitalization. CHUCHO negative but has evidence of septic emboli (likely showered all emboli to periphery) records still pending checked chart and with RN. Asked live ammunition inspector to refax and call for records. NM scan with some abnormalities of apical perfusion. Follow clinically. d/w patient and RN. Time in excess of 40 mins. Critical thinking decision making, dw MDs. Anali Beaver MD Jan 16, 2016 14:07
[2016-01-16 16:00] VITALS: BP 149/93; PULSE 91; RESP 20; TEMP 97.6; O2SAT 94
--- NOTE | 2016-01-16 16:21 | PD.ONC.PN ---
Subjective Subjective Remarks Still weak. No bleeding. No CP. Objective Data Date Time Temp Pulse Resp B/P Pulse Ox O2 Delivery O2 Flow Rate FiO2 01/16/16 13:00 94 18 134/83 94 01/16/16 09:01 97.7 98 20 141/79 93 01/16/16 06:40 17 01/16/16 04:00 99.0 106 20 158/84 94 01/16/16 00:30 97.9 107 20 165/82 94 01/15/16 20:45 99.1 100 20 166/86 95 01/16/16 01/16/16 01/16/16 07:00 15:00 23:00 Output Total 525 ml Balance -525 ml Result Diagram: 01/16/16 0542 01/16/16 0542 Laboratory Results Laboratory Tests Test 01/16/16 05:42 White Blood Count 17.9 TH/MM3 Red Blood Count 3.39 MIL/MM3 Hemoglobin 10.1 GM/DL Hematocrit 30.4 % Mean Corpuscular Volume 89.7 FL Mean Corpuscular Hemoglobin 29.8 PG Mean Corpuscular Hemoglobin 33.2 % Concent Red Cell Distribution Width 13.6 % Platelet Count 255 TH/MM3 Mean Platelet Volume 9.0 FL Neutrophils (%) (Auto) 86.8 % Lymphocytes (%) (Auto) 7.0 % Monocytes (%) (Auto) 5.9 % Eosinophils (%) (Auto) 0.2 % Basophils (%) (Auto) 0.1 % Neutrophils # (Auto) 15.5 TH/MM3 Lymphocytes # (Auto) 1.3 TH/MM3 Monocytes # (Auto) 1.1 TH/MM3 Eosinophils # (Auto) 0.0 TH/MM3 Basophils # (Auto) 0.0 TH/MM3 CBC Comment AUTO DIFF Differential Total Cells 100 Counted Neutrophils % (Manual) 91 % Band Neutrophils % 3 % Lymphocytes % 3 % Monocytes % 3 % Neutrophils # (Manual) 16.8 TH/MM3 Differential Comment FINAL DIFF MANUAL Platelet Estimate NORMAL Platelet Morphology Comment NORMAL Red Cell Morphology Comment NORMAL Activated Partial 51.6 SEC Thromboplast Time Sodium Level 140 MEQ/L Potassium Level 2.6 MEQ/L Chloride Level 105 MEQ/L Carbon Dioxide Level 23.8 MEQ/L Anion Gap 11 MEQ/L Blood Urea Nitrogen 38 MG/DL Creatinine 2.03 MG/DL Estimat Glomerular Filtration 33 ML/MIN Rate Random Glucose 225 MG/DL Calcium Level 7.5 MG/DL Magnesium Level 1.8 MG/DL Culture Results Microbiology Date/Time Procedure Status Source Growth 01/14/16 12:25 Aerobic Blood Culture - Final Resulted Blood Peripheral Staphylococcus Aureus 01/14/16 12:25 Anaerobic Blood Culture - Preliminary Resulted Blood Peripheral NO GROWTH IN 2 DAYS 01/14/16 12:30 Aerobic Blood Culture - Final Resulted Blood Peripheral Staphylococcus Aureus 01/14/16 12:30 Anaerobic Blood Culture - Preliminary Resulted Blood Peripheral NO GROWTH IN 2 DAYS 01/15/16 13:45 Aerobic Blood Culture - Preliminary Resulted Blood Peripheral NO GROWTH IN 1 DAY 01/15/16 13:45 Anaerobic Blood Culture - Preliminary Resulted Blood Peripheral NO GROWTH IN 1 DAY 01/15/16 13:46 Aerobic Blood Culture - Preliminary Resulted Blood Peripheral NO GROWTH IN 1 DAY 01/15/16 13:46 Anaerobic Blood Culture - Preliminary Resulted Blood Peripheral NO GROWTH IN 1 DAY Administered Medications Medications (Trade) Dose Ordered Sig/Smith Route PRN Reason Start Time Stop Time Status Last Admin Dose Admin Sodium Chloride (NS 1000 ml Inj) 1,000 ml @ 100 mls/hr Q10H IV 01/11/16 18:44 01/15/16 20:24 IV Flush (NS Flush) 2 ml BID FLUSH 01/11/16 21:00 01/15/16 20:24 Acetaminophen (Tylenol) 650 mg Q4H PRN PO FEVER/PAIN 1-2 01/11/16 18:45 01/14/16 18:25 Acetaminophen/ Hydrocodone Bitart ([place] 5-325 Mg) 1 tab Q4H PRN PO PAIN 3-5 01/11/16 19:15 01/16/16 05:37 Heparin Sodium (Porcine) 2500 units 2,500 units UNSCH PRN IV APTT 25 TO 39 01/12/16 01:15 01/12/16 02:48 Heparin Sodium/ Dextrose (Heparin-D5W Inj) 250 ml @ 0 mls/hr TITRATE IV 01/11/16 19:15 01/16/16 01:29 Calcium Carbonate 500 mg 500 mg Q12HR CHEW 01/13/16 09:00 01/16/16 08:57 Ertapenem 1000 mg/ Sodium Chloride 100 ml @ 200 mls/hr Q24H IV 01/13/16 12:00 01/15/16 11:50 Cefazolin Sodium/ Dextrose (Ancef 2 Gm Premix) 50 ml @ 100 mls/hr Q8H IV 01/14/16 14:00 01/16/16 05:07 Atorvastatin Calcium (Lipitor) 40 mg HS PO 01/15/16 21:00 01/15/16 20:20 Amlodipine Besylate (Norvasc) 5 mg DAILY PO 01/15/16 09:45 01/16/16 08:57 Rifampin 150 mg 150 mg Q12HR PO 01/15/16 13:00 01/16/16 08:57 Ceftaroline Fosamil/Sodium Chloride (Teflaro Inj/NS Inj) 100 ml @ 100 mls/hr Q12H IV 01/15/16 14:00 01/16/16 01:40 Objective Remarks GENERAL: Cachectic, weak SKIN: Warm and dry. HEAD: Normocephalic. EYES: No scleral icterus. No injection or drainage. NECK: Supple, trachea midline. No JVD or lymphadenopathy. LYMPHATIC: No adenopathy. CARDIOVASCULAR: Regular rate and rhythm without murmurs. RESPIRATORY: Breath sounds equal bilaterally. No accessory muscle use. GASTROINTESTINAL: Abdomen soft, non-tender, nondistended. EXTREMITIES: No cyanosis, RLE edema and still cleaner tube. No RUE edema MUSCULOSKELETAL: Adequate muscle tone. NEUROLOGICAL: No obvious focal deficit. Awake, alert, and oriented x3. PSYCHIATRIC: Appropriate mood and affect; insight and judgment normal. Assessment/Plan Assessment 1. Right lower extremity deep venous thrombosis and right upper extremity deep venous thrombosis. I think this is triggered by sepsis and immobility. He was laying on the floor for several hours the day prior to presentation. There is also a possibility that he had a PICC line placed on the right upper extremity during his hospital stay at [facility] a week prior to presentation. In any way, the thrombosis appeared to be provoked. He was started on heparin drip. He is tolerating well. 01/16/16 RLE edema and still cleaner tube. 2. Sepsis likely from urinary tract infection. He has bacteremia, he is currently on antibiotic per infectious disease. 3. Neurogenic bladder with recurrent urinary tract infection. He has been evaluated by urology. He has been self-catheterizing. 4. Diabetes mellitus. 5. Hepatitis C. He was receiving treatment at [facility]. Plan Plan: 1. Continue heparin drip and bridging him to Coumadin once he is done with all the procedure. 2. Continue antibiotic per infectious disease. 3. Continue supportive care. Osbaldo Flowers MD Jan 16, 2016 16:21
[2016-01-16] MEDS: ERTAPENEM INJ 1,000 MG in SODIUM CHLORIDE 0.9% INJ 100 ML IV SCH (17:25)
[2016-01-16] MEDS: SODIUM CHLOR 0.9% 1000 ML INJ 1,000 ML IV SCH ×2 (18:44→20:53)
[2016-01-16 20:00] VITALS: BP 168/87; PULSE 93; RESP 17; TEMP 96.4; O2SAT 94
[2016-01-16] MEDS: ATORVASTATIN 40 MG TAB PO SCH (20:53)
[2016-01-17] VITALS: BP 158/82; PULSE 91; RESP 17; TEMP 96.8; O2SAT 94
[2016-01-17] MEDS: CEFTAROLINE IV SCH ×2 (02:17)
[2016-01-17] MEDS: SODIUM CHLORIDE IV SCH ×2 (02:17)
[2016-01-17 04:00] VITALS: BP 171/84; PULSE 89; RESP 17; TEMP 97; O2SAT 94
[2016-01-17] MEDS: SODIUM CHLOR 0.9% 1000 ML INJ 1,000 ML IV SCH ×2 (04:44→12:39)
[2016-01-17] MEDS: ceFAZolin 2 GM PREMIX 50 ML IV SCH ×3 (05:18→22:13)
[2016-01-17] MEDS: INSULIN ASPART SUPPLEMENTAL SCALE SQ SCH ×4 (05:23→22:18)
[2016-01-17 08:11] VITALS: BP 148/81; PULSE 92; RESP 20; TEMP 98.5; O2SAT 94
[2016-01-17] MEDS: amLODIPine BESYLATE 5 MG TAB PO SCH (08:12)
[2016-01-17] MEDS: CALCIUM CARBONATE 500 MG CHEWABLE TAB CHEW SCH ×2 (08:12→19:53)
[2016-01-17] MEDS: RIFAMPIN 150 MG CAP PO SCH ×2 (08:12→19:52)
[2016-01-17] MEDS: SODIUM CHLORIDE 0.9% FLUSH 5 ML FLUSH FLUSH SCH ×2 (08:12→19:57)
[2016-01-17 09:11] LABS: AUTOMATED NEUTROPHIL # 16.4 TH/MM3 (1.8-7.7); BASOPHIL % 0.1 % (0.0-2.0); EOSINOPHIL # 0.1 TH/MM3 (0-0.4); EOSINOPHIL % 0.4 % (0.0-4.0); HEMATOCRIT 28.1 % (39.0-51.0); LYMPH % 7.7 % (9.0-44.0); LYMPHOCYTE # 1.4 TH/MM3 (1.0-4.8); MEAN CELL VOLUME 88.8 FL (80.0-100.0); MEAN CORPUSCULAR HEMOGLOBIN 29.7 PG (27.0-34.0); MEAN CORPUSCULAR HGB CONC 33.5 % (32.0-36.0); MONO % 4.6 % (0.0-8.0); NEUT % 87.2 % (16.0-70.0); PLATELET COUNT 297 TH/MM3 (150-450); RED BLOOD COUNT 3.16 MIL/MM3 (4.50-5.90); RED CELL DISTRIBUTION WIDTH 13.2 % (11.6-17.2); WHITE BLOOD COUNT 18.8 TH/MM3 (4.0-11.0)
[2016-01-17 09:20] LABS: HEMO FLAGS AUTO DIFF
[2016-01-17 09:25] LABS: APTT (PATIENT) 100.3 SEC (24.3-30.1)
[2016-01-17 10:00] LABS: BICARBONATE 25.4 MEQ/L (21.0-32.0)
[2016-01-17 10:05] LABS: POTASSIUM 2.6 MEQ/L (3.5-5.1)
[2016-01-17 10:06] LABS: SCAN/DIFF AUTO DIFF CONFIRMED
--- NOTE | 2016-01-17 10:44 | HHI.IDPN ---
Subjective Subjective Remarks is a 70 y/o CM with PMHx of HTN, DM, Hyperlipidemia and Neurogenic Bladder w/ Self Catheterization who was brought to the ER by EMS for c/o fever and elevated BS of 500 at home. Admitted with sepsis, now being evaluated and managed for MSSA bacteremia unclear source, ESBL and MSSA UTI in a patient that self caths at home. Overnight events reviewed. No fevers. UO ok No rash No diarrhea Alert, responds to questions better today. Complains of Antibiotics Ancef IV Ertapenem IV Teflaro IV Rifampin oral Lines Line sites with no e/o infection. Past Medical History reviewed. Allergies: Coded Allergies: *MDRO Multi-Drug Resistant Organism (Verified Adverse Reaction, Unknown, 01/13/16) ESBL+E.Coli (urine-01/11/16) Objective . Vital Signs Date Time Temp Pulse Resp B/P Pulse Ox O2 Delivery O2 Flow Rate FiO2 01/17/16 08:11 98.5 92 20 148/81 94 01/17/16 04:00 97.0 89 17 171/84 94 01/17/16 00:00 96.8 91 17 158/82 94 01/16/16 20:00 96.4 93 17 168/87 94 01/16/16 16:00 97.6 91 20 149/93 94 01/16/16 13:00 94 18 134/83 94 01/16/16 01/16/16 01/17/16 15:00 23:00 07:00 Intake Total 150 ml 240 ml Output Total 500 ml 250 ml Balance -350 ml -10 ml Intake Oral 150 ml 240 ml Output Urine Total 500 ml 250 ml # Bowel Movements 0 . Laboratory Tests Test 01/16/16 01/17/16 05:42 08:02 White Blood Count 17.9 TH/MM3 18.8 TH/MM3 Red Blood Count 3.39 MIL/MM3 3.16 MIL/MM3 Hemoglobin 10.1 GM/DL 9.4 GM/DL Hematocrit 30.4 % 28.1 % Mean Corpuscular Volume 89.7 FL 88.8 FL Mean Corpuscular Hemoglobin 29.8 PG 29.7 PG Mean Corpuscular Hemoglobin 33.2 % 33.5 % Concent Red Cell Distribution Width 13.6 % 13.2 % Platelet Count 255 TH/MM3 297 TH/MM3 Mean Platelet Volume 9.0 FL 8.8 FL Neutrophils (%) (Auto) 86.8 % 87.2 % Lymphocytes (%) (Auto) 7.0 % 7.7 % Monocytes (%) (Auto) 5.9 % 4.6 % Eosinophils (%) (Auto) 0.2 % 0.4 % Basophils (%) (Auto) 0.1 % 0.1 % Neutrophils # (Auto) 15.5 TH/MM3 16.4 TH/MM3 Lymphocytes # (Auto) 1.3 TH/MM3 1.4 TH/MM3 Monocytes # (Auto) 1.1 TH/MM3 0.9 TH/MM3 Eosinophils # (Auto) 0.0 TH/MM3 0.1 TH/MM3 Basophils # (Auto) 0.0 TH/MM3 0.0 TH/MM3 CBC Comment AUTO DIFF AUTO DIFF Differential Total Cells 100 Counted Neutrophils % (Manual) 91 % Band Neutrophils % 3 % Lymphocytes % 3 % Monocytes % 3 % Neutrophils # (Manual) 16.8 TH/MM3 Differential Comment FINAL DIFF AUTO DIFF MANUAL CONFIRMED Platelet Estimate NORMAL Platelet Morphology Comment NORMAL Red Cell Morphology Comment NORMAL Laboratory Tests Test 01/16/16 01/17/16 05:42 08:05 Sodium Level 140 MEQ/L 142 MEQ/L Potassium Level 2.6 MEQ/L 2.6 MEQ/L Chloride Level 105 MEQ/L 106 MEQ/L Carbon Dioxide Level 23.8 MEQ/L 25.4 MEQ/L Anion Gap 11 MEQ/L 11 MEQ/L Blood Urea Nitrogen 38 MG/DL 35 MG/DL Creatinine 2.03 MG/DL 2.06 MG/DL Estimat Glomerular Filtration 33 ML/MIN 32 ML/MIN Rate Random Glucose 225 MG/DL 203 MG/DL Calcium Level 7.5 MG/DL 7.6 MG/DL Magnesium Level 1.8 MG/DL Microbiology Date/Time Procedure Status Source Growth 01/14/16 12:25 Aerobic Blood Culture - Final Resulted Blood Peripheral Staphylococcus Aureus 01/14/16 12:25 Anaerobic Blood Culture - Preliminary Resulted Blood Peripheral NO GROWTH IN 2 DAYS 01/14/16 12:30 Aerobic Blood Culture - Final Resulted Blood Peripheral Staphylococcus Aureus 01/14/16 12:30 Anaerobic Blood Culture - Preliminary Resulted Blood Peripheral NO GROWTH IN 2 DAYS 01/15/16 13:45 Aerobic Blood Culture - Preliminary Resulted Blood Peripheral NO GROWTH IN 1 DAY 01/15/16 13:45 Anaerobic Blood Culture - Preliminary Resulted Blood Peripheral NO GROWTH IN 1 DAY 01/15/16 13:46 Aerobic Blood Culture - Preliminary Resulted Blood Peripheral NO GROWTH IN 1 DAY 01/15/16 13:46 Anaerobic Blood Culture - Preliminary Resulted Blood Peripheral NO GROWTH IN 1 DAY Imaging Last Impressions Myocardial Perfusion Scan Nuc Med 01/13/16 0000 Signed Impressions: Service Date/Time: Wednesday, January 13, 2016 10:52 - CONCLUSION: Small size, moderate severity nonreversible apical perfusion abnormality. RISK CATEGORY: Low (<1%% Annual Mortality Rate) Jayce Ham MD Shoulder X-Ray 01/12/16 0000 Signed Impressions: Service Date/Time: Tuesday, January 12, 2016 09:24 - CONCLUSION: 1. No acute fracture or subluxation of the left shoulder. 2. Probably an old fracture of the distal clavicle, healed. 3. 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 Jayce Ng MD Lower Extremity Ultrasound 01/11/16 1600 Signed Impressions: Service Date/Time: Monday, January 11, 2016 17:13 - CONCLUSION: 1. Nonocclusive thrombus in the popliteal vein and peroneal tributary. More central venous system is sonographically normal. 2. Tube like graft/stent in the right groin region with a surrounding hypoechoic region which does not show color Doppler flow. Diagnostic considerations include a thrombosed aneurysm treated with a covered stent/graft versus fluid around the regional vasculature. The latter would be concerning for possible perivascular infection. If patient's symptomatology is characteristic of an infectious or inflammatory process, CTA of the pelvis would be recommended for further characterization.. Carroll Arteaga MD Knee X-Ray 01/11/16 1555 Signed Impressions: Service Date/Time: Monday, January 11, 2016 16:43 - CONCLUSION: Small joint effusion. Jessica Blackburn MD Chest X-Ray 01/11/16 1555 Signed Impressions: Service Date/Time: Monday, January 11, 2016 16:40 - CONCLUSION: No acute cardiopulmonary disease. Jessica Blackburn MD Physical Exam GENERAL: Thin built, Under nourished, well developed patient, in no apparent distress. SKIN: No rashes. HEAD: Atraumatic. Normocephalic. No temporal or scalp tenderness. EYES: Pupils equal round and reactive. Extraocular motions intact. No scleral icterus. No injection or drainage. ENT: Nose without bleeding, purulent drainage or septal hematoma. Throat without erythema, tonsillar hypertrophy or exudate. Uvula midline. Airway patent. NECK: Trachea midline. Supple, nontender, no meningeal signs. CARDIOVASCULAR: RRR, murmur. RESPIRATORY: Clear to auscultation. Breath sounds equal bilaterally. GASTROINTESTINAL: Abdomen soft, tenderness noted in Suprapubic region. MUSCULOSKELETAL: RLE with significant swelling noted. Tender to touch. Slight erythema. Right foot plantar aspect with multiple septic emboli noted. Left elbow with significant swelling and fluctuance noted. Mild erythema, tender and decreased ROM. NEUROLOGICAL: Awake and alert. Responds to questions but sluggish. Psych: cooperative IV line sites with no e.o infection Assessment & Plan Remarks Sepsis present on admission (patient was on antibiotics prior to admission ?). Fever, elevated WBC and bacteremia as source. MSSA bacteremia, endocarditis: ? line at other hospital, ? infected aneurysm ? left elbow bursitis or septic arthritis. MSSA and ESBL E.coli UTI and Emphysematous Cystitis: Patient self catheterizes at home. Neurogenic bladder. Pneumnoia Persistent bacteremia: sources are being looked at as source control will help control bacteremia. Acute metabolic encephalopathy: likely sepsis related improving. Acute renal failure: ? sepsis related, baseline not known. DM uncontrolled on admission. DVT Right LE Recent admission at [facility] as risk factor for infection. Elevated troponins likely from infection Recs Continue Ancef IV q8 hrs equivalent renal dose adjusted. Continue Ertapenem IV (ASP criteria: ESBL UTI/emphysematous cystitis present on admission in a patient that self catheterizes at home) DC Teflaro IV (blood cultures negative) Continue Rifampin oral (has a graft material in thigh) for now. Will review OSH records to decide. CT C/A/P: septic emboli, Emphysematous cystitis. Reviewed past and current images with Urology. Emphysematous changes appear increased compared to a year back. ? recurrent or chronic infections related. Also noted inguinal and pelvic basin free air. recommends continuing ABX at this time and re-image in 7-10 days during this hospitalization. CHUCHO negative but has evidence of septic emboli (likely showered all emboli to periphery) records still pending checked chart and with RN. Asked assembler unit to refax and call for records. NM scan with some abnormalities of apical perfusion. Follow clinically. d/w patient and RN. d/w clinical pharmacist. to cover for me this weekend. Anali Beaver MD Jan 17, 2016 10:44
[2016-01-17] MEDS: ERTAPENEM INJ 1,000 MG in SODIUM CHLORIDE 0.9% INJ 100 ML IV SCH (10:53)
[2016-01-17] MEDS: LACTATED RINGER'S 1000 ML IV SCH (11:00)
--- NOTE | 2016-01-17 11:15 | PD.ONC.PN ---
Subjective Subjective Remarks Afebrile overnight. Patient lethargic. No complaints. No bleeding per nurse, no overnight events. Objective Data Date Time Temp Pulse Resp B/P Pulse Ox O2 Delivery O2 Flow Rate FiO2 01/17/16 08:11 98.5 92 20 148/81 94 01/17/16 04:00 97.0 89 17 171/84 94 01/17/16 00:00 96.8 91 17 158/82 94 01/16/16 20:00 96.4 93 17 168/87 94 01/16/16 16:00 97.6 91 20 149/93 94 01/16/16 13:00 94 18 134/83 94 Result Diagram: 01/17/16 0802 01/17/16 0805 Laboratory Results Laboratory Tests Test 01/17/16 01/17/16 08:02 08:05 White Blood Count 18.8 TH/MM3 Red Blood Count 3.16 MIL/MM3 Hemoglobin 9.4 GM/DL Hematocrit 28.1 % Mean Corpuscular Volume 88.8 FL Mean Corpuscular Hemoglobin 29.7 PG Mean Corpuscular Hemoglobin 33.5 % Concent Red Cell Distribution Width 13.2 % Platelet Count 297 TH/MM3 Mean Platelet Volume 8.8 FL Neutrophils (%) (Auto) 87.2 % Lymphocytes (%) (Auto) 7.7 % Monocytes (%) (Auto) 4.6 % Eosinophils (%) (Auto) 0.4 % Basophils (%) (Auto) 0.1 % Neutrophils # (Auto) 16.4 TH/MM3 Lymphocytes # (Auto) 1.4 TH/MM3 Monocytes # (Auto) 0.9 TH/MM3 Eosinophils # (Auto) 0.1 TH/MM3 Basophils # (Auto) 0.0 TH/MM3 CBC Comment AUTO DIFF Differential Comment AUTO DIFF CONFIRMED Activated Partial 100.3 SEC Thromboplast Time Sodium Level 142 MEQ/L Potassium Level 2.6 MEQ/L Chloride Level 106 MEQ/L Carbon Dioxide Level 25.4 MEQ/L Anion Gap 11 MEQ/L Blood Urea Nitrogen 35 MG/DL Creatinine 2.06 MG/DL Estimat Glomerular Filtration 32 ML/MIN Rate Random Glucose 203 MG/DL Calcium Level 7.6 MG/DL Culture Results Microbiology Date/Time Procedure Status Source Growth 01/14/16 12:25 Aerobic Blood Culture - Final Resulted Blood Peripheral Staphylococcus Aureus 01/14/16 12:25 Anaerobic Blood Culture - Preliminary Resulted Blood Peripheral NO GROWTH IN 2 DAYS 01/14/16 12:30 Aerobic Blood Culture - Final Resulted Blood Peripheral Staphylococcus Aureus 01/14/16 12:30 Anaerobic Blood Culture - Preliminary Resulted Blood Peripheral NO GROWTH IN 2 DAYS 01/15/16 13:45 Aerobic Blood Culture - Preliminary Resulted Blood Peripheral NO GROWTH IN 1 DAY 01/15/16 13:45 Anaerobic Blood Culture - Preliminary Resulted Blood Peripheral NO GROWTH IN 1 DAY 01/15/16 13:46 Aerobic Blood Culture - Preliminary Resulted Blood Peripheral NO GROWTH IN 1 DAY 01/15/16 13:46 Anaerobic Blood Culture - Preliminary Resulted Blood Peripheral NO GROWTH IN 1 DAY Administered Medications Medications (Trade) Dose Ordered Sig/Smith Route PRN Reason Start Time Stop Time Status Last Admin Dose Admin Sodium Chloride (NS 1000 ml Inj) 1,000 ml @ 100 mls/hr Q10H IV 01/11/16 18:44 01/16/16 20:53 IV Flush (NS Flush) 2 ml BID FLUSH 01/11/16 21:00 01/15/16 20:24 Acetaminophen (Tylenol) 650 mg Q4H PRN PO FEVER/PAIN 1-2 01/11/16 18:45 01/14/16 18:25 Acetaminophen/ Hydrocodone Bitart (Tofte 5-325 Mg) 1 tab Q4H PRN PO PAIN 3-5 01/11/16 19:15 01/16/16 05:37 Heparin Sodium (Porcine) 2500 units 2,500 units UNSCH PRN IV APTT 25 TO 39 01/12/16 01:15 01/12/16 02:48 Heparin Sodium/ Dextrose (Heparin-D5W Inj) 250 ml @ 0 mls/hr TITRATE IV 01/11/16 19:15 01/16/16 20:58 Calcium Carbonate 500 mg 500 mg Q12HR CHEW 01/13/16 09:00 01/17/16 08:12 Ertapenem 1000 mg/ Sodium Chloride 100 ml @ 200 mls/hr Q24H IV 01/13/16 12:00 01/17/16 10:53 Cefazolin Sodium/ Dextrose (Ancef 2 Gm Premix) 50 ml @ 100 mls/hr Q8H IV 01/14/16 14:00 01/17/16 05:18 Atorvastatin Calcium (Lipitor) 40 mg HS PO 12/7/16 21:00 01/16/16 20:53 Amlodipine Besylate (Norvasc) 5 mg DAILY PO 01/15/16 09:45 01/17/16 08:12 Rifampin 150 mg 150 mg Q12HR PO 01/15/16 13:00 01/17/16 08:12 Ceftaroline Fosamil/Sodium Chloride (Teflaro Inj/NS Inj) 100 ml @ 100 mls/hr Q12H IV 01/15/16 14:00 01/17/16 02:17 Objective Remarks GENERAL: Elderly male, lethargic. Lying in bed. SKIN: Warm and dry. HEAD: Normocephalic. EYES: No injection or drainage. NECK: Supple, trachea midline. CARDIOVASCULAR: +S1/S2 RESPIRATORY: Breath sounds equal bilaterally. No accessory muscle use. GASTROINTESTINAL: Abdomen soft, non-tender, nondistended. EXTREMITIES: No cyanosis. NEUROLOGICAL: lethargic. oriented to place and self. Assessment/Plan Problem List: (1) DVT (deep venous thrombosis) Status: Acute Plan: 01/17/16: continue heparin drip. start coumadin once all procedures complete--u/s guided aspiration ordered today by . History --Right lower extremity deep venous thrombosis and right upper extremity deep venous thrombosis. --likely triggered by sepsis and immobility. --was laying on the floor for several hours the day prior to presentation. --also a possibility that he had a PICC line placed on the right upper extremity during his hospital stay at [facility] a week prior to presentation. --the thrombosis appeared to be provoked. (2) Sepsis Status: Resolved Plan: --d/t UTI --on multiple antibiotics. (3) Neurogenic bladder Status: Acute Plan: --urology following. --Neurogenic bladder with recurrent urinary tract infection. --has been self-catheterizing. Assessment 70y/o male with newly diagnosed DVT's, admitted with urosepsis. h/o Diabetes mellitus. Hepatitis C. He was receiving treatment at [facility]. Plan 1. continue heparin drip. start Coumadin once procedures complete 2. continue antibiotics 3. supportive care. Attending Statement The exam, history, and the medical decision-making described in the above note were completed with the assistance of the mid-level provider. I reviewed and agree with the findings presented. I attest that I had a [id number] encounter with the patient on the same day, and personally performed and documented my assessment and findings in the medical record. RLE 1+edema, twister tender. Continue heparin and start coumadin when he is done with invasive procedure. Problem Qualifiers (1) DVT (deep venous thrombosis): Qualified Code: I82.431 - Deep vein thrombosis (DVT) of popliteal vein of right lower extremity, unspecified chronicity Rukhsana Esquivel Jan 17, 2016 11:15 Osbaldo Flowers MD Jan 17, 2016 17:00
--- NOTE | 2016-01-17 11:30 | HHI.PR ---
Subjective Remarks Pt alert and awake. No new complaints. Desires to have paul catheter changed out to new one. Some sediment in tube noted. Objective Vital Signs Vital Signs Date Time Temp Pulse Resp B/P Pulse Ox O2 Delivery O2 Flow Rate FiO2 01/17/16 08:11 98.5 92 20 148/81 94 01/17/16 04:00 97.0 89 17 171/84 94 01/17/16 00:00 96.8 91 17 158/82 94 01/16/16 20:00 96.4 93 17 168/87 94 01/16/16 16:00 97.6 91 20 149/93 94 01/16/16 13:00 94 18 134/83 94 I/O 01/16/16 01/16/16 01/16/16 01/17/16 01/17/16 01/17/16 06:59 14:59 22:59 06:59 14:59 22:59 Intake Total 390 ml Output Total 525 ml 750 ml Balance -525 ml -360 ml Intake Oral 390 ml Output Urine Total 525 ml 750 ml # Bowel Movements 0 Result Diagram: 01/17/16 0802 01/17/16 0805 Objective Remarks Abd: soft,nt,nd Paul with some sediment Ext: Right LE edema 01/16 Abd: soft,nt,nd Paul with some sediment Assessment and Plan Assessment and Plan 70 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 Continue IV ABX Will perform another imaging study in 1-2 weeks. 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 Crescencio Lopez DO Jan 17, 2016 11:30
[2016-01-17 12:00] VITALS: BP 134/82; PULSE 97; RESP 20; TEMP 97.2; O2SAT 95
[2016-01-17 12:19] LABS: APTT (PATIENT) 42.2 SEC (24.3-30.1)
[2016-01-17] MEDS: ACETAMINOPHEN/HYDROcodone 325 MG/5 MG TAB PO PRN ×2 (12:47→19:53)
[2016-01-17 12:48] LABS: INTERNATIONAL NORMALIZED RATIO 1.2 RATIO; PROTHROMBIN TIME - PATIENT 12.9 SEC (9.8-11.6)
[2016-01-17 15:00] VITALS: BP 178/92; PULSE 93; RESP 20; TEMP 97.6; O2SAT 95
--- NOTE | 2016-01-17 15:31 | HHI.PR ---
Subjective Remarks Pt seen at 2:25 - K still low. Pt denies abdominal pain, dyspnea. Objective Vitals Vital Signs Date Time Temp Pulse Resp B/P Pulse Ox O2 Delivery O2 Flow Rate FiO2 01/17/16 12:00 97.2 97 20 134/82 95 01/17/16 08:11 98.5 92 20 148/81 94 01/17/16 04:00 97.0 89 17 171/84 94 01/17/16 00:00 96.8 91 17 158/82 94 01/16/16 20:00 96.4 93 17 168/87 94 01/16/16 16:00 97.6 91 20 149/93 94 I/O 01/16/16 01/16/16 01/16/16 01/17/16 01/17/16 01/17/16 07:00 15:00 23:00 07:00 15:00 23:00 Intake Total 150 ml 240 ml Output Total 525 ml 500 ml 250 ml Balance -525 ml -350 ml -10 ml Intake Oral 150 ml 240 ml Output Urine Total 525 ml 500 ml 250 ml # Bowel Movements 0 Result Diagram: 01/17/16 0802 01/17/16 0805 Objective Remarks GENERAL: male in no apparent distress. SKIN: Warm and dry. HEAD: Normocephalic. EYES: No scleral icterus. No injection or drainage. NECK: Supple, trachea midline. No JVD or lymphadenopathy. CARDIOVASCULAR: Regular rate and rhythm without murmurs, gallops, or rubs. RESPIRATORY: Breath sounds equal bilaterally. No accessory muscle use. GASTROINTESTINAL: Abdomen soft, non-tender, nondistended. EXTREMITIES:edema RLE, tender to palpation. NEUROLOGICAL: Awake, alert, and oriented x 3. Non-focal. slow speech. flat affect. A/P Problem List: (1) Sepsis ICD Code: A41.9 Status: Resolved (2) UTI (urinary tract infection) ICD Code: N39.0 Status: Acute (3) Neurogenic bladder ICD Code: N31.9 Status: Acute (4) Rhabdomyolysis ICD Code: M62.82 Status: Acute (5) Elevated troponin ICD Code: R79.89 Status: Acute (6) DVT (deep venous thrombosis) ICD Code: I82.409 Status: Acute (7) DM (diabetes mellitus) ICD Code: E11.9 Status: Chronic (8) Acute kidney injury ICD Code: N17.9 Status: Acute (9) CKD (chronic kidney disease) stage 4, GFR 15-29 ml/min ICD Code: N18.4 Status: Chronic (10) Emphysematous cystitis ICD Code: N30.80 Status: Acute (11) Acute metabolic encephalopathy ICD Code: G93.41 Status: Acute (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 Sepsis, persistent MSSA bacteremia, with stigmata of endocarditis despite negative echocardiogram. Has fem pop graft in RLE with surrounding fluid which is definitely infected, status post aspiration today with interventional radiology, I was called by Dr. Booker who stated that the fluid appeared to be purulent, Gram stain pending, and in his opinion the graft adamantly needs to be taken out but this may cause limb ischemia. The patient declined surgery by Dr. Mayfield and requested transfer to [facility] to be seen by Dr. Mirza who initially put the graft in less than a year ago. I discussed the patient with Dr. Mirza this evening and explained the picture. Dr. Mirza stated he would accept the patient but he is out of town this weekend and he also felt it would be acceptable for the patient to be treated by vascular surgery here. I also discussed with infectious disease/Dr Beaver. At this point the patient continues on IV antibiotics and his most recent blood culture is negative and vital signs are stable. I will discuss in detail again tomorrow with the patient as well as vascular surgery here and try to get the patient to come to a decision. 2. Severe emphysematous UTI (recurrent or worsening as compared to previous CT done 09/2014) - with air in the extraperitoneal pelvis suggestive of possible developing fistula or bladder perforation. Urine cx growing E. Coli ESBL and staph aureus. I discussed in detail with Dr. Beaver and Dr. Lopez. Plan is to continue paul and antibiotics for some weeks and repeat CT in 2 weeks as usually extraperitoneal bladder perforation will heal on their own. The patient is on ertapenem for this infection. 2. UTI: U/a positive for UTI. +self catheterization. Will continue w/ IV Abx , IVF. see above. Urology consult in place as pt found to have worsening emphysematous cystitis which has worsened compared to I discussed the case w Dr. Lopez who recommends keeping paul in place and continuing IV abx for now. Appreciate assistance. 3. Urinary retention possibly due to neurogenic bladder - self catheterizes at home. Continue paul as per urology. 4. Acute on Chronic kidney injury: Creatinine 3.55 on admission, improved now down to 2. Continue IVF normal saline at a rate of 100 mL per hour. 5. Rhabdomyolysis: resolved. Per EMS, pt found lying on bathroom floor by neighbor yesterday, pt denies any trauma, states he was tired and just wanted to lie down. Now complaining of left shoulder pain and per daughter he also had been complaining of right shoulder pain. x-ray of shoulder didn't show any acute fx. Pt still having difficulty moving his left upper extremity although today he has move movement compared to yesterday. PT/OT following. OT does recommend inpatient rehab. 6. Elevated Trop: Trop 0.07, EKG w/ no acute changes. Likely secondary to worsening renal function. ECHO which showed EF 55-60%. stress test showed " Small size, moderate severity nonreversible apical perfusion abnormality, low risk". Appreciate cardiology input. 7. DM type 2: Uncontrolled. Hgb A1c 8.0. Continue sliding scale w/ Accu- Cheks. Consider starting basal insulin. 8. DVT of right upper popliteal and peroneal tributary, and of right upper extremity in the brachial vein. Continue heparin drip until able to bridge to coumadin. Will need at least 3 months AC for provoked DVT, appreciate hematology input. 9. Left elbow swelling: Orthopedic evaluated pt, CT elbow negative for effusion or abscess. Appreciate assistance. 10. Acute metabolic encephalopathy - improving with treatment of underlying medical illnesses. Mental status still not quite back to baseline as per family. However the patient is alert and oriented 3 and I believe has capacity to make his own decisions at this time. 11. Severe, persistent hypokalemia - continue repletion. may need to investigate underlying causes as no evidence of GI loss. 12. Continue PT/OT. 13. Guarded prognosis. 14. DVT Prophylaxis: As above, on Heparin gtt Problem Qualifiers (1) Sepsis: Qualified Code: A41.01 - Sepsis due to Methicillin susceptible Staphylococcus aureus (2) DVT (deep venous thrombosis): Qualified Code: I82.431 - Deep vein thrombosis (DVT) of popliteal vein of right lower extremity, unspecified chronicity (3) DM (diabetes mellitus): Melissa Giles MD Jan 17, 2016 15:31
[2016-01-17] MEDS ORDERED: WARFARIN SOD 1 MG TAB PO SCH (16:00)
[2016-01-17] MEDS ORDERED: POTASSIUM CHLORIDE 10 MEQ CONTROLLED RELEASE TAB PO ONE (16:00)
--- NOTE | 2016-01-17 16:25 | PD.RAD ---
Post Procedure Progress Note Pre Procedure Diagnosis: (1) Sepsis Post Procedure Diagnosis: (1) Sepsis (2) Perivascular/Graft abcess Procedure Date: Jan 17, 2016 Supervising Radiologist: Carroll Arteaga Anesthesia: Local Plan of Activity Patient to Unit: Nursing Unit Patient Condition: Fair See PACS Report for procedural detail/treatment Drainage Procedure Procedure 1 Imaging Guidance: Ultrasound Side: Right Findings: U/s Guided drainage of complex fluid around right fem-distal bypass. 5cc sterile water injected. 10cc of purulent material aspirated. Sent to lab for GS, C&S Carroll Arteaga MD Jan 17, 2016 16:25
--- NOTE | 2016-01-17 16:29 | PD.CAR.PN ---
CVT Progress Note Subjective/Hospital Course: Patient with white count and the staph aureus and the blood which could be from multiple sources. He has severe emphysematous cystitis, probably the worst I have ever seen and he is treated successfully for this by Dr. Lopez. Patient does have a small collection around previously placed graft in the groin. This graft was apparently placed about a year and a half ago at another institution. Initial recommendation was to do CTA however despite hydration and every other measured the creatinine doesn't seem to be moving, so I believe risk-benefit ratio rojo it is best to do ultrasound-guided aspiration of this collection. Considering that the rest of the workup is negative this could be the source of the infection and if such, patient will need a removal of explantation of this graft I discussed this with Dr. Arteaga and will go ahead with this today Depending on the results of this aspiration if any fluid can be obtained we'll tailor further therapy if any vascular intervention is necessary Objective: Vital Signs Date Time Temp Pulse Resp B/P Pulse Ox O2 Delivery O2 Flow Rate FiO2 01/17/16 12:00 97.2 97 20 134/82 95 01/17/16 08:11 98.5 92 20 148/81 94 01/17/16 04:00 97.0 89 17 171/84 94 01/17/16 00:00 96.8 91 17 158/82 94 01/16/16 20:00 96.4 93 17 168/87 94 Labs: Laboratory Tests Test 01/17/16 01/17/16 01/17/16 08:02 08:05 11:35 White Blood Count 18.8 TH/MM3 (4.0-11.0) Red Blood Count 3.16 MIL/MM3 (4.50-5.90) Hemoglobin 9.4 GM/DL (13.0-17.0) Hematocrit 28.1 % (39.0-51.0) Mean Corpuscular Volume 88.8 FL (80.0-100.0) Mean Corpuscular Hemoglobin 29.7 PG (27.0-34.0) Mean Corpuscular Hemoglobin 33.5 % Concent (32.0-36.0) Red Cell Distribution Width 13.2 % (11.6-17.2) Platelet Count 297 TH/MM3 (150-450) Mean Platelet Volume 8.8 FL (7.0-11.0) Neutrophils (%) (Auto) 87.2 % (16.0-70.0) Lymphocytes (%) (Auto) 7.7 % (9.0-44.0) Monocytes (%) (Auto) 4.6 % (0.0-8.0) Eosinophils (%) (Auto) 0.4 % (0.0-4.0) Basophils (%) (Auto) 0.1 % (0.0-2.0) Neutrophils # (Auto) 16.4 TH/MM3 (1.8-7.7) Lymphocytes # (Auto) 1.4 TH/MM3 (1.0-4.8) Monocytes # (Auto) 0.9 TH/MM3 (0-0.9) Eosinophils # (Auto) 0.1 TH/MM3 (0-0.4) Basophils # (Auto) 0.0 TH/MM3 (0-0.2) CBC Comment AUTO DIFF Differential Comment AUTO DIFF CONFIRMED Activated Partial 100.3 SEC 42.2 SEC Thromboplast Time (24.3-30.1) (24.3-30.1) Sodium Level 142 MEQ/L (136-145) Potassium Level 2.6 MEQ/L (3.5-5.1) Chloride Level 106 MEQ/L (98-107) Carbon Dioxide Level 25.4 MEQ/L (21.0-32.0) Anion Gap 11 MEQ/L (5-15) Blood Urea Nitrogen 35 MG/DL (7-18) Creatinine 2.06 MG/DL (0.60-1.30) Estimat Glomerular Filtration 32 ML/MIN (>89) Rate Random Glucose 203 MG/DL (74-106) Calcium Level 7.6 MG/DL (8.5-10.1) Prothrombin Time 12.9 SEC (9.8-11.6) Prothromb Time International 1.2 RATIO Ratio Result Diagram: 01/17/16 0801/17/16 08 (1) Sepsis Plan: Schedule for [facility] today ?endocarditis Keep NPO (2) Elevated troponin (3) Heart murmur (4) Urinary tract infection (5) DVT (deep venous thrombosis) Problem Qualifiers (1) Urinary tract infection: Qualified Code: N39.0 - Urinary tract infection with hematuria, site unspecified (2) DVT (deep venous thrombosis): Qualified Code: I82.431 - Deep vein thrombosis (DVT) of popliteal vein of right lower extremity, unspecified chronicity Ethan Booker MD Jan 17, 2016 16:28
[2016-01-17] MEDS: POTASSIUM CHLOR 20 MEQ PREMIX 100 ML IV SCH ×2 (17:24→19:52)
--- NOTE | 2016-01-17 17:25 | PD.CAR.PN ---
CVT Progress Note Subjective/Hospital Course: Patient with white count and the staph aureus and the blood which could be from multiple sources. He has severe emphysematous cystitis, probably the worst I have ever seen and he is treated successfully for this by Dr. Lopez. Patient does have a small collection around previously placed graft in the groin. This graft was apparently placed about a year and a half ago at another institution. Initial recommendation was to do CTA however despite hydration and every other measured the creatinine doesn't seem to be moving, so I believe risk-benefit ratio rojo it is best to do ultrasound-guided aspiration of this collection. Considering that the rest of the workup is negative this could be the source of the infection and if such, patient will need a removal of explantation of this graft I discussed this with Dr. Arteaga and will go ahead with this today Depending on the results of this aspiration if any fluid can be obtained we'll tailor further therapy if any vascular intervention is necessary 01/17/16 Discussed aspiration results with and by gross appearance this appears to be purulent material from the right groin. We also reviewed again the CT scan without contrast as well as venous ultrasound. Endovenous ultrasound there appears to be flow in the common femoral artery and the tubular structure next to it so I believe this is a patent femoral popliteal graft. If cultures come indeed back positive for Gram stain shows infection patient will need explantation of this graft. I've discussed this with patient at length and there is a good chance that he will end up with ischemic leg and will eventually need an amputation. If adequate a saphenous vein can be utilized to bridge this immediately and lessen the chance of critical ischemia that would require amputation After discussing with this the patient he states that he is an established patient of Dr. Mirza and wants to go back to his physician who did a surgery in the first place, Dr. Mirza at [facility] and does not want us to do any surgery here. I completely agree with the patient and he was my patient I would want him to see me back with a problem like this. I discussed this with Dr. Melissa Monsivais and she will make contact with Dr. Mirza. I'll be happy to discuss the patient with him Objective: Vital Signs Date Time Temp Pulse Resp B/P Pulse Ox O2 Delivery O2 Flow Rate FiO2 01/17/16 15:00 97.6 93 20 178/92 95 12/9/16 12:00 97.2 97 20 134/82 95 01/17/16 08:11 98.5 92 20 148/81 94 01/17/16 04:00 97.0 89 17 171/84 94 01/17/16 00:00 96.8 91 17 158/82 94 01/16/16 20:00 96.4 93 17 168/87 94 Labs: Laboratory Tests Test 01/17/16 01/17/16 01/17/16 08:02 08:05 11:35 White Blood Count 18.8 TH/MM3 (4.0-11.0) Red Blood Count 3.16 MIL/MM3 (4.50-5.90) Hemoglobin 9.4 GM/DL (13.0-17.0) Hematocrit 28.1 % (39.0-51.0) Mean Corpuscular Volume 88.8 FL (80.0-100.0) Mean Corpuscular Hemoglobin 29.7 PG (27.0-34.0) Mean Corpuscular Hemoglobin 33.5 % Concent (32.0-36.0) Red Cell Distribution Width 13.2 % (11.6-17.2) Platelet Count 297 TH/MM3 (150-450) Mean Platelet Volume 8.8 FL (7.0-11.0) Neutrophils (%) (Auto) 87.2 % (16.0-70.0) Lymphocytes (%) (Auto) 7.7 % (9.0-44.0) Monocytes (%) (Auto) 4.6 % (0.0-8.0) Eosinophils (%) (Auto) 0.4 % (0.0-4.0) Basophils (%) (Auto) 0.1 % (0.0-2.0) Neutrophils # (Auto) 16.4 TH/MM3 (1.8-7.7) Lymphocytes # (Auto) 1.4 TH/MM3 (1.0-4.8) Monocytes # (Auto) 0.9 TH/MM3 (0-0.9) Eosinophils # (Auto) 0.1 TH/MM3 (0-0.4) Basophils # (Auto) 0.0 TH/MM3 (0-0.2) CBC Comment AUTO DIFF Differential Comment AUTO DIFF CONFIRMED Activated Partial 100.3 SEC 42.2 SEC Thromboplast Time (24.3-30.1) (24.3-30.1) Sodium Level 142 MEQ/L (136-145) Potassium Level 2.6 MEQ/L (3.5-5.1) Chloride Level 106 MEQ/L (98-107) Carbon Dioxide Level 25.4 MEQ/L (21.0-32.0) Anion Gap 11 MEQ/L (5-15) Blood Urea Nitrogen 35 MG/DL (7-18) Creatinine 2.06 MG/DL (0.60-1.30) Estimat Glomerular Filtration 32 ML/MIN (>89) Rate Random Glucose 203 MG/DL (74-106) Calcium Level 7.6 MG/DL (8.5-10.1) Prothrombin Time 12.9 SEC (9.8-11.6) Prothromb Time International 1.2 RATIO Ratio Result Diagram: 01/17/1680101/17/16 0805 (1) Sepsis Plan: Schedule for [facility] today ?endocarditis Keep NPO (2) Elevated troponin (3) Heart murmur (4) Urinary tract infection (5) DVT (deep venous thrombosis) Problem Qualifiers (1) Sepsis: Qualified Code: A41.01 - Sepsis due to Methicillin susceptible Staphylococcus aureus (2) Urinary tract infection: Qualified Code: N39.0 - Urinary tract infection with hematuria, site unspecified (3) DVT (deep venous thrombosis): Qualified Code: I82.431 - Deep vein thrombosis (DVT) of popliteal vein of right lower extremity, unspecified chronicity Ethan Booker MD Jan 17, 2016 17:25
--- NOTE | 2016-01-17 18:05 | HHI.PR ---
Addendum to Inpatient Note Addendum Reason: Additional Documentation Additional Information Recd call from : Aneursym near graft site in RLE thigh area was aspirated by IR today. Cultures sent and pending. D/w : no flow problems by US. If any change in LE flow or s/o obstruction please call him. will d.w who did the original surgery at . Patient does not want performing surgery at present time. If no plans for surgery I would recommend palliative care consult to determine goals of therapy. Patient has an extensive severe emphysematous cystitis with air in the inguinal area and pelvic basin. This was also present on CT 1.5 yrs back. Reviewed with Urology non surgical medical management at present time with rescan in 10 days. Patient also has high grade MSSA bacteremia with s/o endocarditis such as septic emboli to lungs and LE plantar aspect. Follow Septic emboli to LE for s/o development of abscess as well as signs of vascular compromise. The infected aneurysm can potentially rupture but at present time bacteremia appears to be slowing down and repeat cultures are now delayed positive. Even if we treat this acute infection if graft is not removed patient will need life long oral antibiotic suppression with risk of Cdiff. Prognosis is guarded at present time. Patient can have change in condition at any time. Continue Ancef IV Continue Rifampin oral. Follow cultures Follow clinically as mentioned above. to cover for me this weekend. Anali Beaver MD Jan 17, 2016 18:05
[2016-01-17 18:10] LABS: APTT (PATIENT) 57.6 SEC (24.3-30.1)
[2016-01-17] MEDS: POTASSIUM CHLORIDE 10 MEQ CONTROLLED RELEASE TAB PO SCH (19:53)
[2016-01-17] MEDS: ATORVASTATIN 40 MG TAB PO SCH (19:53)
[2016-01-17] MEDS: HEPARIN-D5W INJ 250 ML IV SCH (19:57)
[2016-01-17 20:00] VITALS: BP 179/86; PULSE 81; RESP 19; TEMP 96.6; O2SAT 95
[2016-01-18] VITALS: BP 170/89; PULSE 89; RESP 20; TEMP 96.5; O2SAT 94
[2016-01-18] MEDS: SODIUM CHLOR 0.9% 1000 ML INJ 1,000 ML IV SCH ×3 (00:20→22:25)
[2016-01-18 04:00] VITALS: BP 148/74; PULSE 95; RESP 20; TEMP 98; O2SAT 95
[2016-01-18] MEDS: ceFAZolin 2 GM PREMIX 50 ML IV SCH ×3 (05:02→22:10)
[2016-01-18] MEDS: INSULIN ASPART SUPPLEMENTAL SCALE SQ SCH ×4 (05:14→22:23)
[2016-01-18 08:00] VITALS: BP 133/71; PULSE 98; RESP 16; TEMP 98.3; O2SAT 95
[2016-01-18 08:13] LABS: APTT (PATIENT) 61.6 SEC (24.3-30.1); INTERNATIONAL NORMALIZED RATIO 1.3 RATIO; PROTHROMBIN TIME - PATIENT 14.5 SEC (9.8-11.6)
[2016-01-18 08:38] LABS: BICARBONATE 25.8 MEQ/L (21.0-32.0); POTASSIUM 3.2 MEQ/L (3.5-5.1)
[2016-01-18 08:50] LABS: CALCIUM-PROTEIN CORRECTED 8.2 MG/DL (8.5-10.1)
[2016-01-18] MEDS: SODIUM CHLORIDE 0.9% FLUSH 5 ML FLUSH FLUSH SCH ×2 (09:00→21:00)
[2016-01-18] MEDS: LACTATED RINGER'S 1000 ML IV SCH (11:00)
[2016-01-18] MEDS: RIFAMPIN 150 MG CAP PO SCH ×2 (11:02→21:59)
[2016-01-18] MEDS: amLODIPine BESYLATE 5 MG TAB PO SCH (11:04)
[2016-01-18] MEDS: CALCIUM CARBONATE 500 MG CHEWABLE TAB CHEW SCH ×2 (11:04→22:00)
[2016-01-18] MEDS: POTASSIUM CHLORIDE 10 MEQ CONTROLLED RELEASE TAB PO SCH ×2 (11:04→22:00)
[2016-01-18] MEDS: ERTAPENEM INJ 1,000 MG in SODIUM CHLORIDE 0.9% INJ 100 ML IV SCH (11:05)
--- NOTE | 2016-01-18 11:47 | PD.CAR.PN ---
CVT Progress Note Subjective/Hospital Course: Patient with white count and the staph aureus and the blood which could be from multiple sources. He has severe emphysematous cystitis, probably the worst I have ever seen and he is treated successfully for this by Dr. Lopez. Patient does have a small collection around previously placed graft in the groin. This graft was apparently placed about a year and a half ago at another institution. Initial recommendation was to do CTA however despite hydration and every other measured the creatinine doesn't seem to be moving, so I believe risk-benefit ratio rojo it is best to do ultrasound-guided aspiration of this collection. Considering that the rest of the workup is negative this could be the source of the infection and if such, patient will need a removal of explantation of this graft I discussed this with Dr. Arteaga and will go ahead with this today Depending on the results of this aspiration if any fluid can be obtained we'll tailor further therapy if any vascular intervention is necessary 01/17/16 Discussed aspiration results with and by gross appearance this appears to be purulent material from the right groin. We also reviewed again the CT scan without contrast as well as venous ultrasound. Endovenous ultrasound there appears to be flow in the common femoral artery and the tubular structure next to it so I believe this is a patent femoral popliteal graft. If cultures come indeed back positive for Gram stain shows infection patient will need explantation of this graft. I've discussed this with patient at length and there is a good chance that he will end up with ischemic leg and will eventually need an amputation. If adequate a saphenous vein can be utilized to bridge this immediately and lessen the chance of critical ischemia that would require amputation After discussing with this the patient he states that he is an established patient of Dr. Mirza and wants to go back to his physician who did a surgery in the first place, Dr. Mirza at [facility] and does not want us to do any surgery here. I completely agree with the patient and he reveals my patient I would want him to see me back with a problem like this. I discussed this with Dr. Melissa Monsivais and she will make contact with Dr. Mirza. 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 Mirza less than a year ago at [facility]. Patient does not have an aneurysm but a collection surrounding the graft and this is a contiguous process and if explanted we will see that the infection is probably tracking all the way down to the popliteal space although this may not be evident just from physical exam I discussed this with the patient again this morning and stated unequivocally that he needs an urgent operation with removal of the graft and there is a high risk that removal of the graft will result in ischemia of his leg and consequently loss of the right leg either below or above the knee. Patient is adamant that he will not have any surgery here and demands that he be transferred to Dr. Mirza at [facility] because he is his patient I will standby if some emergency arises but I do recommend removal of this graft DEZ. Objective: Vital Signs Date Time Temp Pulse Resp B/P Pulse Ox O2 Delivery O2 Flow Rate FiO2 01/18/16 08:00 98.3 98 16 133/71 95 01/18/16 04:00 98.0 95 20 148/74 95 01/18/16 00:00 96.5 89 20 170/89 94 01/17/16 20:53 18 01/17/16 20:00 96.6 81 19 179/86 95 01/17/16 15:00 97.6 93 20 178/92 95 01/17/16 12:00 97.2 97 20 134/82 95 Labs: Laboratory Tests Test 01/18/16 07:28 Prothrombin Time 14.5 SEC (9.8-11.6) Prothromb Time International 1.3 RATIO Ratio Activated Partial 61.6 SEC Thromboplast Time (24.3-30.1) Sodium Level 145 MEQ/L (136-145) Potassium Level 3.2 MEQ/L (3.5-5.1) Chloride Level 111 MEQ/L (98-107) Carbon Dioxide Level 25.8 MEQ/L (21.0-32.0) Anion Gap 8 MEQ/L (5-15) Blood Urea Nitrogen 30 MG/DL (7-18) Creatinine 2.05 MG/DL (0.60-1.30) Estimat Glomerular Filtration 32 ML/MIN (>89) Rate Random Glucose 146 MG/DL (74-106) Calcium Level 7.4 MG/DL (8.5-10.1) Protein Corrected Calcium 8.2 MG/DL (8.5-10.1) Total Protein 5.6 GM/DL (6.4-8.2) Result Diagram: 01/17/16 0802 01/18/16 0728 (1) Sepsis Plan: Schedule for [facility] today ?endocarditis Keep NPO (2) Elevated troponin (3) Heart murmur (4) Urinary tract infection (5) DVT (deep venous thrombosis) Problem Qualifiers (1) Sepsis: Qualified Code: A41.01 - Sepsis due to Methicillin susceptible Staphylococcus aureus (2) Urinary tract infection: Qualified Code: N39.0 - Urinary tract infection with hematuria, site unspecified (3) DVT (deep venous thrombosis): Qualified Code: I82.431 - Deep vein thrombosis (DVT) of popliteal vein of right lower extremity, unspecified chronicity Ethan Booker MD Jan 18, 2016 11:46
[2016-01-18 12:00] VITALS: BP 155/76; PULSE 101; RESP 16; TEMP 98.7; O2SAT 95
[2016-01-18 16:00] VITALS: BP 139/80; PULSE 101; RESP 16; TEMP 98.9; O2SAT 95
--- NOTE | 2016-01-18 16:33 | HHI.PR ---
Subjective Remarks Patient does not want to have surgery by any one other than Dr. Mirza., stating "he's the one who put it in and I was happy with it, he's the only one who knows the stent and those other surgeons don't know me." He wants to talk with his daughter before making a decision to transfer to [facility]. Other than that, the patient wants a popsicle. Denies dyspnea or pain. Objective Vitals Vital Signs Date Time Temp Pulse Resp B/P Pulse Ox O2 Delivery O2 Flow Rate FiO2 01/18/16 12:00 98.7 101 16 155/76 95 01/18/16 08:00 98.3 98 16 133/71 95 01/18/16 04:00 98.0 95 20 148/74 95 01/18/16 00:00 96.5 89 20 170/89 94 01/17/16 20:53 18 01/17/16 20:00 96.6 81 19 179/86 95 I/O 01/17/16 01/17/16 01/17/16 01/18/16 01/18/16 01/18/16 06:59 14:59 22:59 06:59 14:59 22:59 Intake Total 220 ml 1303 ml 240 ml Output Total 1175 ml 350 ml 1400 ml Balance -955 ml 953 ml -1160 ml Intake Oral 220 ml 60 ml 240 ml IV Total 1243 ml Output Urine Total 1175 ml 350 ml 1400 ml # Bowel Movements 0 Result Diagram: 01/17/16 0802 01/18/16 0728 Objective Remarks GENERAL: Petite eldelry CM patient in NAD. SKIN: Warm and dry. HEAD: Normocephalic. EYES: No scleral icterus. No injection or drainage. NECK: Supple, trachea midline. No JVD or lymphadenopathy. CARDIOVASCULAR: Regular rate and rhythm without murmurs, gallops, or rubs. RESPIRATORY: Breath sounds equal bilaterally. No accessory muscle use. GASTROINTESTINAL: Abdomen soft, non-tender, nondistended. EXTREMITIES: 1+ right pedal edema. NEUROLOGICAL: Awake, alert, and oriented x 3. Non-focal. Flat affect. difficult to understand speech as he is eating a popsicle. A/P Problem List: (1) Sepsis ICD Code: A41.9 Status: Resolved (2) UTI (urinary tract infection) ICD Code: N39.0 Status: Acute (3) Neurogenic bladder ICD Code: N31.9 Status: Acute (4) Acute on chronic renal insufficiency ICD Code: N28.9 Status: Acute (5) Rhabdomyolysis ICD Code: M62.82 Status: Acute (6) Elevated troponin ICD Code: R79.89 Status: Acute (7) DVT (deep venous thrombosis) ICD Code: I82.409 Status: Acute (8) DM (diabetes mellitus) ICD Code: E11.9 Status: Chronic Assessment and Plan 1. Sepsis, persistent MSSA bacteremia, with stigmata of endocarditis despite negative echocardiogram. Has fem pop graft in RLE with surrounding fluid which is definitely infected, status post aspiration today with interventional radiology, I was called by Dr. Booker who stated that the fluid appeared to be purulent, Gram stain pending, and in his opinion the graft adamantly needs to be taken out but this may cause limb ischemia. The patient declined surgery by Dr. Mayfield and requested transfer to [facility] to be seen by Dr. Mirza who initially put the graft in less than a year ago. I discussed the patient with Dr. Mirza on 01/16 who agreed to accept the patient but he is out of town this weekend and he also felt it would be acceptable for the patient to be treated by vascular surgery here. I discussed with Dr. Fairchild and Dr. Alvarenga vascular surgery here - Dr. Alvarenga on consult for second opinion. At this point in time, patient is stating he only wants surgery done by Dr. Mirza, however he does not want me to initiate the transfer process to [facility] until he talks to his daughter. I also talked with pt's daughter who adamantly does not want her father transferred to [facility]. At this point the patient continues on IV antibiotics and his most recent blood culture is negative and vital signs are stable. Will await patient's decision regarding surgery. 2. Severe emphysematous UTI (recurrent or worsening as compared to previous CT done 09/2014) - with air in the extraperitoneal pelvis suggestive of possible developing fistula or bladder perforation. Urine cx growing E. Coli ESBL and staph aureus. I discussed in detail with Dr. Beaver and Dr. Lopez previously. Plan is to continue paul and antibiotics for some weeks and repeat CT in 2 weeks as usually extraperitoneal bladder perforation will heal on their own. The patient is on ertapenem for this infection. 2. UTI: U/a positive for UTI. +self catheterization. Will continue w/ IV Abx , IVF. see above. Urology consult in place as pt found to have worsening emphysematous cystitis which has worsened compared to I discussed the case w Dr. Lopez who recommends keeping paul in place and continuing IV abx for now. Appreciate assistance. 3. Urinary retention possibly due to neurogenic bladder - self catheterizes at home. Continue paul as per urology. 4. Acute on Chronic kidney injury: Creatinine 3.55 on admission, improved now down to 2. Continue IVF normal saline at a rate of 100 mL per hour. 5. Rhabdomyolysis - PT/OT following. OT does recommend inpatient rehab. 6. Elevated Trop: Trop 0.07, EKG w/ no acute changes. Likely secondary to worsening renal function. ECHO which showed EF 55-60%. stress test showed " Small size, moderate severity nonreversible apical perfusion abnormality, low risk". Appreciate cardiology input. 7. DM type 2: Uncontrolled. Hgb A1c 8.0. Continue sliding scale w/ Accu- Cheks. Consider starting basal insulin. 8. DVT of right upper popliteal and peroneal tributary, and of right upper extremity in the brachial vein. Continue heparin drip until able to bridge to coumadin. Will need at least 3 months AC for provoked DVT, appreciate hematology input. 9. Left elbow swelling: Orthopedic evaluated pt, CT elbow negative for effusion or abscess. Appreciate assistance. 10. Acute metabolic encephalopathy - improving with treatment of underlying medical illnesses. Mental status still not quite back to baseline as per family. However the patient is alert and oriented 3 and I believe has capacity to make his own decisions at this time. 11. Severe, persistent hypokalemia - improving today finally, continue repletion. repeat BMP in a.m. 12. Continue PT/OT. 13. Guarded prognosis. 14. DVT Prophylaxis: As above, on Heparin gtt Problem Qualifiers (1) Sepsis: Qualified Code: A41.01 - Sepsis due to Methicillin susceptible Staphylococcus aureus (2) DVT (deep venous thrombosis): Qualified Code: I82.431 - Deep vein thrombosis (DVT) of popliteal vein of right lower extremity, unspecified chronicity (3) DM (diabetes mellitus): Melissa Giles MD Jan 18, 2016 16:32
[2016-01-18] MEDS ORDERED: POTASSIUM CHLORIDE 10 MEQ CONTROLLED RELEASE TAB PO ONE (16:45)
[2016-01-18 20:00] VITALS: BP 159/84; PULSE 97; RESP 18; TEMP 97; O2SAT 95
[2016-01-18] MEDS: ATORVASTATIN 40 MG TAB PO SCH (22:00)
[2016-01-18] MEDS: HEPARIN-D5W INJ 250 ML IV SCH (22:13)
[2016-01-19] VITALS: BP 168/84; PULSE 93; RESP 18; TEMP 97.8; O2SAT 95
[2016-01-19 04:00] VITALS: BP 160/80; PULSE 95; RESP 18; TEMP 97.1; O2SAT 95
[2016-01-19] MEDS: ceFAZolin 2 GM PREMIX 50 ML IV SCH ×3 (06:00→22:02)
[2016-01-19] MEDS: INSULIN ASPART SUPPLEMENTAL SCALE SQ SCH ×4 (06:51→21:00)
[2016-01-19 08:05] LABS: INTERNATIONAL NORMALIZED RATIO 1.5 RATIO; PROTHROMBIN TIME - PATIENT 17.1 SEC (9.8-11.6)
[2016-01-19 08:40] VITALS: BP 136/87; PULSE 99; RESP 16; TEMP 98.8; O2SAT 95
--- NOTE | 2016-01-19 08:49 | PD.CAR.PN ---
CVT Progress Note Subjective/Hospital Course: Patient with white count and the staph aureus and the blood which could be from multiple sources. He has severe emphysematous cystitis, probably the worst I have ever seen and he is treated successfully for this by Dr. Lopez. Patient does have a small collection around previously placed graft in the groin. This graft was apparently placed about a year and a half ago at another institution. Initial recommendation was to do CTA however despite hydration and every other measured the creatinine doesn't seem to be moving, so I believe risk-benefit ratio rojo it is best to do ultrasound-guided aspiration of this collection. Considering that the rest of the workup is negative this could be the source of the infection and if such, patient will need a removal of explantation of this graft I discussed this with Dr. Arteaga and will go ahead with this today Depending on the results of this aspiration if any fluid can be obtained we'll tailor further therapy if any vascular intervention is necessary 01/17/16 Discussed aspiration results with and by gross appearance this appears to be purulent material from the right groin. We also reviewed again the CT scan without contrast as well as venous ultrasound. Endovenous ultrasound there appears to be flow in the common femoral artery and the tubular structure next to it so I believe this is a patent femoral popliteal graft. If cultures come indeed back positive for Gram stain shows infection patient will need explantation of this graft. I've discussed this with patient at length and there is a good chance that he will end up with ischemic leg and will eventually need an amputation. If adequate a saphenous vein can be utilized to bridge this immediately and lessen the chance of critical ischemia that would require amputation After discussing with this the patient he states that he is an established patient of Dr. Mirza and wants to go back to his physician who did a surgery in the first place, Dr. Mirza at [facility] and does not want us to do any surgery here. I completely agree with the patient and he reveals my patient I would want him to see me back with a problem like this. I discussed this with Dr. Melissa Monsivais and she will make contact with Dr. Mirza. 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 Mirza less than a year ago at [facility]. Patient does not have an aneurysm but a collection surrounding the graft and this is a contiguous process and if explanted we will see that the infection is probably tracking all the way down to the popliteal space although this may not be evident just from physical exam I discussed this with the patient again this morning and stated unequivocally that he needs an urgent operation with removal of the graft and there is a high risk that removal of the graft will result in ischemia of his leg and consequently loss of the right leg either below or above the knee. Patient is adamant that he will not have any surgery here and demands that he be transferred to Dr. Mirza at [facility] because he is his patient I will standby if some emergency arises but I do recommend removal of this graft DEZ. 01/19/16 Patient with infected femoropopliteal graft of the right leg. This was placed by Dr. Mirza at [facility] last year. I'm now discussed this with patient repeatedly and he will not have anybody else touch this but Dr. Mirza I have tried to bring to the patient the sense of severe tube this and potential implications including systemic sepsis loss of the limb and from his problem. Patient however was to be transferred in the care of Dr. Mirza and doesn't want anybody else to touch stating that I do not understand with Dr. Mirza did and therefore should not be involved in his care I have discussed this with Dr. Monsivais I will respectfully sign of the case at this time and I strongly recommend the patient be transferred to care of Dr. Mirza because this is own decision-maker Objective: Vital Signs Date Time Temp Pulse Resp B/P Pulse Ox O2 Delivery O2 Flow Rate FiO2 01/19/16 08:40 98.8 99 16 136/87 95 01/19/16 04:00 97.1 95 18 160/80 95 01/19/16 00:00 97.8 93 18 168/84 95 01/18/16 20:00 97.0 97 18 159/84 95 01/18/16 16:00 98.9 101 16 139/80 95 01/18/16 12:00 98.7 101 16 155/76 95 Labs: Laboratory Tests Test 01/19/16 07:20 Prothrombin Time 17.1 SEC (9.8-11.6) Prothromb Time International 1.5 RATIO Ratio Result Diagram: 01/17/16 0802 01/18/16 0728 (1) Sepsis Plan: Schedule for [facility] today ?endocarditis Keep NPO (2) Elevated troponin (3) Heart murmur (4) Urinary tract infection (5) DVT (deep venous thrombosis) Problem Qualifiers (1) Sepsis: Qualified Code: A41.01 - Sepsis due to Methicillin susceptible Staphylococcus aureus (2) Urinary tract infection: Qualified Code: N39.0 - Urinary tract infection with hematuria, site unspecified (3) DVT (deep venous thrombosis): Qualified Code: I82.431 - Deep vein thrombosis (DVT) of popliteal vein of right lower extremity, unspecified chronicity Ethan Booker MD Jan 19, 2016 08:49
[2016-01-19] MEDS: CALCIUM CARBONATE 500 MG CHEWABLE TAB CHEW SCH ×2 (10:12→22:03)
[2016-01-19] MEDS: amLODIPine BESYLATE 5 MG TAB PO SCH (10:12)
[2016-01-19] MEDS: RIFAMPIN 150 MG CAP PO SCH ×2 (10:12→22:03)
[2016-01-19] MEDS: POTASSIUM CHLORIDE 10 MEQ CONTROLLED RELEASE TAB PO SCH ×2 (10:12→22:03)
[2016-01-19] MEDS: SODIUM CHLORIDE 0.9% FLUSH 5 ML FLUSH FLUSH SCH ×2 (10:28→21:00)
[2016-01-19] MEDS: SODIUM CHLOR 0.9% 1000 ML INJ 1,000 ML IV SCH (10:30)
[2016-01-19 10:57] LABS: APTT (PATIENT) 70.2 SEC (24.3-30.1)
[2016-01-19] MEDS: LACTATED RINGER'S 1000 ML IV SCH (11:00)
[2016-01-19] MEDS: ERTAPENEM INJ 1,000 MG in SODIUM CHLORIDE 0.9% INJ 100 ML IV SCH (11:11)
[2016-01-19 12:00] VITALS: BP 163/84; PULSE 96; RESP 16; TEMP 98.5; O2SAT 96
[2016-01-19] MEDS ORDERED: POTASSIUM CHLORIDE 10 MEQ CONTROLLED RELEASE TAB PO ONE (13:30)
--- NOTE | 2016-01-19 14:05 | HHI.PR ---
Subjective Remarks pt c/o fatigue. denies dyspnea fever. c/o pain in b/l le. Patient states he does not want to be transferred to [facility] and is now agreeable to having surgery by vascular surgeons. Objective Vitals Vital Signs Date Time Temp Pulse Resp B/P Pulse Ox O2 Delivery O2 Flow Rate FiO2 01/19/16 12:00 98.5 96 16 163/84 96 01/19/16 08:40 98.8 99 16 136/87 95 01/19/16 04:00 97.1 95 18 160/80 95 01/19/16 00:00 97.8 93 18 168/84 95 01/18/16 20:00 97.0 97 18 159/84 95 01/18/16 16:00 98.9 101 16 139/80 95 I/O 01/18/16 01/18/16 01/18/16 01/19/16 01/19/16 01/19/16 07:00 15:00 23:00 07:00 15:00 23:00 Intake Total 1303 ml 240 ml 2426 ml 844 ml Output Total 350 ml 1400 ml 850 ml 1300 ml Balance 953 ml -1160 ml 1576 ml -456 ml Intake Oral 60 ml 240 ml IV Total 1243 ml 2426 ml 844 ml Output Urine Total 350 ml 1400 ml 850 ml 1300 ml # Bowel Movements 0 Result Diagram: 01/17/1680101/18/16 0728 Objective Remarks GENERAL: Petite eldelry CM patient in NAD. SKIN: Warm and dry. HEAD: Normocephalic. EYES: No scleral icterus. No injection or drainage. NECK: Supple, trachea midline. No JVD or lymphadenopathy. CARDIOVASCULAR: Regular rate and rhythm without murmurs, gallops, or rubs. RESPIRATORY: Breath sounds equal bilaterally. No accessory muscle use. GASTROINTESTINAL: Abdomen soft, non-tender, nondistended. EXTREMITIES: 1+ right pedal edema. NEUROLOGICAL: Awake, alert, and oriented x 3. Non-focal. Flat affect. difficult to understand speech as he is eating a popsicle. A/P Problem List: (1) Sepsis ICD Code: A41.9 Status: Resolved (2) UTI (urinary tract infection) ICD Code: N39.0 Status: Acute (3) Neurogenic bladder ICD Code: N31.9 Status: Acute (4) Acute on chronic renal insufficiency ICD Code: N28.9 Status: Acute (5) Rhabdomyolysis ICD Code: M62.82 Status: Acute (6) Elevated troponin ICD Code: R79.89 Status: Acute (7) DVT (deep venous thrombosis) ICD Code: I82.409 Status: Acute (8) DM (diabetes mellitus) ICD Code: E11.9 Status: Chronic Assessment and Plan 1. Sepsis, persistent MSSA bacteremia, with stigmata of endocarditis despite negative echocardiogram. Has fem pop graft in RLE with surrounding fluid which is definitely infected, status post aspiration today with interventional radiology, I was called by Dr. Booker who stated that the fluid appeared to be purulent, Gram stain pending, and in his opinion the graft adamantly needs to be taken out but this may cause limb ischemia. The patient declined surgery by Dr. Mayfield and requested transfer to [facility] to be seen by Dr. Mirza who initially put the graft in less than a year ago. I discussed the patient with Dr. Mirza on 01/16 who agreed to accept the patient but he is out of town this weekend and he also felt it would be acceptable for the patient to be treated by vascular surgery here. I discussed with Dr. Fairchild and Dr. Alvarenga vascular surgery here - Dr. Alvarenga on consult for second opinion. At this point in time, patient is stating he only wants surgery done by Dr. Mirza, however he does not want me to initiate the transfer process to [facility] until he talks to his daughter. I also talked with pt's daughter who adamantly does not want her father transferred to [facility]. At this point the patient continues on IV antibiotics and his most recent blood culture is negative and vital signs are stable. Will await patient's decision regarding surgery. 2. Severe emphysematous UTI (recurrent or worsening as compared to previous CT done 09/2014) - with air in the extraperitoneal pelvis suggestive of possible developing fistula or bladder perforation. Urine cx growing E. Coli ESBL and staph aureus. I discussed in detail with Dr. Beaver and Dr. Lopez previously. Plan is to continue paul and antibiotics for some weeks and repeat CT in 2 weeks as usually extraperitoneal bladder perforation will heal on their own. The patient is on ertapenem for this infection. 2. UTI: U/a positive for UTI. +self catheterization. Will continue w/ IV Abx , IVF. see above. Urology consult in place as pt found to have worsening emphysematous cystitis which has worsened compared to I discussed the case w Dr. Lopez who recommends keeping paul in place and continuing IV abx for now. Appreciate assistance. 3. Urinary retention possibly due to neurogenic bladder - self catheterizes at home. Continue paul as per urology. 4. Acute on Chronic kidney injury: Creatinine 3.55 on admission, improved now down to 2. Continue IVF normal saline at a rate of 100 mL per hour. 5. Rhabdomyolysis - PT/OT following. OT does recommend inpatient rehab. 6. Elevated Trop: Trop 0.07, EKG w/ no acute changes. Likely secondary to worsening renal function. ECHO which showed EF 55-60%. stress test showed " Small size, moderate severity nonreversible apical perfusion abnormality, low risk". Appreciate cardiology input. 7. DM type 2: Uncontrolled. Hgb A1c 8.0. Continue sliding scale w/ Accu- Cheks. Consider starting basal insulin. 8. DVT of right upper popliteal and peroneal tributary, and of right upper extremity in the brachial vein. Continue heparin drip until able to bridge to coumadin. Will need at least 3 months AC for provoked DVT, appreciate hematology input. 9. Left elbow swelling: Orthopedic evaluated pt, CT elbow negative for effusion or abscess. Appreciate assistance. 10. Acute metabolic encephalopathy - improving with treatment of underlying medical illnesses. Mental status still not quite back to baseline as per family. However the patient is alert and oriented 3 and I believe has capacity to make his own decisions at this time. 11. Severe, persistent hypokalemia - improving today finally, continue repletion. repeat BMP in a.m. 12. Continue PT/OT. 13. Guarded prognosis. 14. DVT Prophylaxis: As above, on Heparin gtt Problem Qualifiers (1) Sepsis: Qualified Code: A41.01 - Sepsis due to Methicillin susceptible Staphylococcus aureus (2) DVT (deep venous thrombosis): Qualified Code: I82.431 - Deep vein thrombosis (DVT) of popliteal vein of right lower extremity, unspecified chronicity (3) DM (diabetes mellitus): Melissa Giles MD Jan 19, 2016 14:05
[2016-01-19 16:00] VITALS: BP 169/92; PULSE 97; RESP 16; TEMP 98; O2SAT 95
--- NOTE | 2016-01-19 16:57 | PD.CAR.PN ---
CVT Progress Note Subjective/Hospital Course: Patient with right lower extremity. Objective: Vital Signs Date Time Temp Pulse Resp B/P Pulse Ox O2 Delivery O2 Flow Rate FiO2 01/19/16 12:00 98.5 96 16 163/84 96 01/19/16 08:40 98.8 99 16 136/87 95 01/19/16 04:00 97.1 95 18 160/80 95 01/19/16 00:00 97.8 93 18 168/84 95 01/18/16 20:00 97.0 97 18 159/84 95 Labs: Laboratory Tests Test 01/19/16 07:20 Prothrombin Time 17.1 SEC (9.8-11.6) Prothromb Time International 1.5 RATIO Ratio Activated Partial 70.2 SEC Thromboplast Time (24.3-30.1) Result Diagram: 01/17/16 0802 01/18/16 0728 (1) Sepsis Plan: Patient with hx of bypass graft right lower extremity at an outside institution ([facility]) more than a year ago. Patient with S. Aureus blood cultures and aspirated right groin S. Aureus with leukocytosis. Plan for non-contrast CT today and vein mapping(upper and lower extremity) with non-invasive arterial exam. NPO after MN. Being hydrated in preparation for angio in am. Family was contacted (daughter and son-in-law) Full dictated consult to follow. (2) Elevated troponin (3) Heart murmur (4) Urinary tract infection (5) DVT (deep venous thrombosis) Problem Qualifiers (1) Sepsis: Qualified Code: A41.01 - Sepsis due to Methicillin susceptible Staphylococcus aureus (2) Urinary tract infection: Qualified Code: N39.0 - Urinary tract infection with hematuria, site unspecified (3) DVT (deep venous thrombosis): Qualified Code: I82.431 - Deep vein thrombosis (DVT) of popliteal vein of right lower extremity, unspecified chronicity Jesus Alvarenga DO Jan 19, 2016 16:57
--- NOTE | 2016-01-19 17:17 | MB ---
cc: ROGERS MEJIA DO DATE OF CONSULTATION 01/19/[address] Rogers Mejia REASON FOR CONSULTATION Possibly infected right lower extremity fem lower extremity bypass graft. HISTORY OF PRESENT ILLNESS This is a pleasant 70-year-old gentleman who has been hospitalized since the 10 of January who presented with sepsis. The patient does self cath for a dysfunctional bladder and was found to have a UTI upon presentation as well as right upper and lower extremity DVTs. The patient's blood sugar when brought to the emergency department on the 10 of January was 500. The patient was found down in his house confused. The patient has a history of a right lower extremity bypass graft by Dr. Mary Mirza at [facility] more than 1 year ago. We are in the process of getting access to the operative notes. Dr. Mirza requested myself and Dr. Aquino to be involved in this case as the patient may have an infected low right lower extremity graft. The patient has had a consistently increased white blood cell count while being on antibiotics. The patient has had staph aureus by blood cultures and then recent aspiration of a fluid collection in the right groin performed on 01/16 also revealed purulent discharge that was cultured as staph aureus. His hospitalist asked us to be involved in the case. PAST MEDICAL HISTORY The patient's past medical history is for hypertension, diabetes, hyperlipidemia, neurogenic bladder with self-catheterization, peripheral arterial disease. PAST SURGICAL HISTORY 1. Right lower extremity bypass. ALLERGIES The patient has no known drug allergies. FAMILY HISTORY Family history is negative for diabetes or coronary artery disease. SOCIAL HISTORY He denies alcohol, tobacco or drugs. REVIEW OF SYSTEMS 1. His review of systems is positive for right leg pain. 2. Positive for a fatigue otherwise negative. MEDICATION Here he is on: 3. Potassium chloride. 4. Atorvastatin. 5. Rifampin. 6. Amylodapine. 7. Cephazolin. 8. Ertapenem. 9. Calcium carbonate. 10. Heparin. 11. Insulin. 12. Morphine. 13. Dulcolax suppository. 14. Milk of Magnesia. PHYSICAL EXAMINATION GENERAL: He is in no apparent distress. He is alert and oriented x3 but he has some difficulty getting his words out. SKIN: Turgor is decreased on his hands and face. NECK: He has got no carotid bruits. Midline trachea. Cardiovascular: On cardiovascular standpoint he has got palpable radial pulses bilaterally and bounding femoral pulses bilaterally and a palpable left DP. He has a triphasic right DP, PT of his right foot. Ankle and leg are more swollen comparison to the left with some mild tenderness over the medial thigh. There is no erythema in the right groin but there is some fullness. ABDOMEN: His abdomen is soft and nondistended. PULMONARY: He has no respiratory, wheezing, rales or rhonchi but has some decreased breath sounds at the bases. VITAL SIGNS: Blood pressure in the 160s/80s. His heart rate is in the 90s and regular. His temperature is 98.5. His sats are 96% on room air. LABORATORY DATA His white blood cell count is 18.8, on 01/12 it was 16.9 and on admission it was 25 on 01/10. His neutrophil count is high 16.4. His H&H is at 9.4 and 28.1. His platelet count is 297. His PTT is 70.2. PT/INR 103/21 was 17.1 and 1.5. His creatinine is at 2.05, on admission was 3.5, potassium 3.2. Fluid collection on 01/16 shows staph aureus. Blood culture from 01/13 shows staph aureus. Blood cultures from 01/14 are negative for any growth. ASSESSMENT This is a 70-year-old gentleman with what appears to be an infected fem-pop bypass graft. At this point the patient's creatinine is elevated so it will be difficult to perform contrast studies to determine his blood supply and some of the characteristics of the abscess. I think a noncontrast CT scan of the right lower extremity will give us some information as well as vein mapping of the bilateral lower extremities. Should get a baseline arterial pressures and then see if we can obtain his surgical records from [facility]. After we review the above orders will determine a plan of action and have a discussion with the patient and his family. We appreciate this referral and for the ability to help take care of this patient. Rogers Mejia DO RM/MARIO /4:30 PM /4:51 PM [facility]ITALSonya
[2016-01-19 20:00] VITALS: BP 167/86; PULSE 94; RESP 18; TEMP 97.8; O2SAT 95
[2016-01-19] MEDS: SODIUM BICARBONATE 8.4% INJ 100 MEQ in SODIUM CHLOR 0.9% 1000 ML INJ 1,000 ML IV SCH (22:02)
[2016-01-19] MEDS: ATORVASTATIN 40 MG TAB PO SCH (22:02)
[2016-01-19] MEDS: ACETAMINOPHEN/HYDROcodone 325 MG/5 MG TAB PO PRN (22:26)
[2016-01-20] VITALS (7 sets, daily range): BP systolic 138–179; BP diastolic 81–95; PULSE 97–108; RESP 16–20; TEMP 97.1–98.5; O2SAT 94–96
[2016-01-20] MEDS: HEPARIN-D5W INJ 250 ML IV SCH (00:04)
[2016-01-20] MEDS: SODIUM CHLOR 0.9% 1000 ML INJ 1,000 ML IV SCH ×2 (02:44→22:44)
[2016-01-20] MEDS: ceFAZolin 2 GM PREMIX 50 ML IV SCH ×3 (05:29→21:04)
[2016-01-20] MEDS: INSULIN ASPART SUPPLEMENTAL SCALE SQ SCH ×4 (05:30→20:58)
[2016-01-20 07:19] LABS: AUTOMATED NEUTROPHIL # 20.6 TH/MM3 (1.8-7.7); BASOPHIL % 0.1 % (0.0-2.0); EOSINOPHIL # 0.1 TH/MM3 (0-0.4); EOSINOPHIL % 0.3 % (0.0-4.0); HEMATOCRIT 29.8 % (39.0-51.0); LYMPH % 6.5 % (9.0-44.0); LYMPHOCYTE # 1.5 TH/MM3 (1.0-4.8); MEAN CELL VOLUME 89.6 FL (80.0-100.0); MEAN CORPUSCULAR HGB CONC 33.5 % (32.0-36.0); MONO % 3.7 % (0.0-8.0); NEUT % 89.4 % (16.0-70.0); PLATELET COUNT 371 TH/MM3 (150-450); RED BLOOD COUNT 3.33 MIL/MM3 (4.50-5.90)
[2016-01-20 07:26] LABS: INTERNATIONAL NORMALIZED RATIO 1.7 RATIO; PROTHROMBIN TIME - PATIENT 19.4 SEC (9.8-11.6)
[2016-01-20 07:31] LABS: HEMO FLAGS AUTO DIFF
[2016-01-20] MEDS: SODIUM CHLORIDE 0.9% FLUSH 5 ML FLUSH FLUSH SCH ×2 (08:00→20:54)
[2016-01-20] MEDS: RIFAMPIN 150 MG CAP PO SCH ×2 (08:00→20:55)
[2016-01-20] MEDS: CALCIUM CARBONATE 500 MG CHEWABLE TAB CHEW SCH ×2 (08:00→20:54)
[2016-01-20] MEDS: POTASSIUM CHLORIDE 10 MEQ CONTROLLED RELEASE TAB PO SCH ×2 (08:00→20:54)
[2016-01-20 08:08] LABS: BICARBONATE 23.9 MEQ/L (21.0-32.0)
[2016-01-20 08:49] LABS: BANDS 4 % (0-6); METAMYELOCYTES 3 % (0-1); MYELOCYTES 1 % (0-0); NEUTROPHIL # MANUAL DIFF 22.5 TH/MM3 (1.8-7.7); PLATELET ESTIMATE SMEAR NORMAL (NORMAL); PLATELET MORPHOLOGY NORMAL (NORMAL); POLYS (SEG NEUTROPHILS) 90 % (16-70); WBC DIFF SAMPLE 100
[2016-01-20 08:50] LABS: SCAN/DIFF FINAL DIFF MANUAL
--- NOTE | 2016-01-20 09:13 | RADRPT ---
EXAM DATE/TIME: 01/20/2016 08:19 [facility] COMPARISON: No previous studies available for comparison. INDICATIONS : Right lower extremity pain. Evaluate for abscess. RADIATION DOSE: 24.09 CTDIvol (mGy) ; Combined studies MEDICAL HISTORY : Diabetes mellitus type 2. Cardiovascular disease Hypertension. SURGICAL HISTORY : None. ENCOUNTER: Initial ACUITY: 4 - 6 days PAIN SCALE: 4/10 LOCATION: Right lower extremity TECHNIQUE: Volumetric scanning of the femur was performed. Using automated exposure control and adjustment of t he mA and/or kV according to patient size, radiation dose was kept as low as reasonably achievable to obtain optimal diagnostic quality images. FINDINGS: There is a common femoral artery to [id number] popliteal artery bypass graft. Within its proximal extent there is fluid surrounding the graft and a tiny air bubble within this fluid. The thickness o f the fluid collection is 5 mm circumferential around the proximal portion of the graft and extends f or approximately 5 cm in length. I am unable to assess the patency of the bypass without IV contrast. The bypass is constructed of PTFE. There is a moderate size joint effusion involving the knee. No ef fusion involving the hip. There is mild stranding of the subcutaneous fat overlying the lateral porti on of the right hip. Osteoarthritic changes are seen involving the hip joint and knee joint. If you s mall right groin lymph nodes but no adenopathy. A hydrocele is partially seen and felt to be on the l eft. No cortical destruction or lucency observed. CONCLUSION: 1. Small area of fluid circumferential around the femoropopliteal bypass within its more proximal asp ect. This may simply be postsurgical in nature depending on the timing of the operation. Infection co uld have a similar appearance. 2. Small joint effusion involving the knee. 3. Hydrocele partially observed felt to be on the left side. Testicular ultrasound could be performed to further evaluate if needed. John Mills Jr., MD on January 20, 2016 at 9:05 Board Certified Radiologist. This report was verified electronically.
--- NOTE | 2016-01-20 09:20 | RADRPT ---
EXAM DATE/TIME: 01/20/2016 08:25 [facility] COMPARISON: CT FEMUR RIGHT W/O CONTRAST, January 20, 2016, 8:19. INDICATIONS : Right lower extremity pain. Evaluate for abscess. RADIATION DOSE: 24.09 CTDIvol (mGy) ; Combined studies MEDICAL HISTORY : Cardiovascular disease. Diabetes mellitus type 2. Hypertension. SURGICAL HISTORY : None. ENCOUNTER: Initial ACUITY: 4 - 6 days PAIN SCALE: 4/10 LOCATION: Right low extremity TECHNIQUE: Volumetric scanning of the tibia and fibula was performed. Using automated exposure control and adju stment of the mA and/or kV according to patient size, radiation dose was kept as low as reasonably ac hievable to obtain optimal diagnostic quality images. FINDINGS: A suprapatellar joint effusion is present. No fat is identified within the joint space. There is no e vidence of acute fracture. Bony mineralization is normal. There is spurring off the anterior tibial t uberosity. There is endosteal and periosteal cortical thickening and tunneling. This involves both th e tibia and the fibula. Osteomyelitis is not excluded. There is extensive subcutaneous edema but no d iscrete abscess. No definite myositis is identified. CONCLUSION: 1. Abnormal cortical thickening involving tibia and fibula. This may reflect osteomyelitis. If there is necessity for further evaluation contrast-enhanced MRI is recommended. Shon Mancilla MD on January 20, 2016 at 9:08 Board Certified Radiologist. This report was verified electronically.
--- NOTE | 2016-01-20 10:39 | HHI.PR ---
Subjective Remarks c/o thirst. otherwise denies complaints. Objective Vitals Vital Signs Date Time Temp Pulse Resp B/P Pulse Ox O2 Delivery O2 Flow Rate FiO2 01/20/16 08:00 98.5 106 20 165/81 95 01/20/16 04:00 98.0 108 18 167/95 94 01/20/16 00:00 97.4 97 16 157/90 94 01/19/16 20:00 97.8 94 18 167/86 95 01/19/16 16:00 98.0 97 16 169/92 95 01/19/16 12:00 98.5 96 16 163/84 96 I/O 01/19/16 01/19/16 01/19/16 01/20/16 01/20/16 01/20/16 06:59 14:59 22:59 06:59 14:59 22:59 Intake Total 844 ml 240 ml 240 ml 0 ml Output Total 1300 ml 1250 ml 750 ml 450 ml Balance -456 ml -1010 ml -510 ml -450 ml Intake Oral 240 ml 240 ml 0 ml IV Total 844 ml Output Urine Total 1300 ml 1250 ml 750 ml 450 ml # Bowel Movements 0 2 1 Result Diagram: 01/20/16 0637 01/20/16 0637 Objective Remarks GENERAL: Petite eldelry CM patient in NAD. SKIN: Warm and dry. HEAD: Normocephalic. EYES: No scleral icterus. No injection or drainage. NECK: Supple, trachea midline. No JVD or lymphadenopathy. CARDIOVASCULAR: Regular rate and rhythm without murmurs, gallops, or rubs. RESPIRATORY: Breath sounds equal bilaterally. No accessory muscle use. GASTROINTESTINAL: Abdomen soft, non-tender, nondistended. EXTREMITIES: 1+ right pedal edema. NEUROLOGICAL: Awake, alert, and oriented x 3. Non-focal. Flat affect. difficult to understand speech as he is eating a popsicle. A/P Problem List: (1) Sepsis ICD Code: A41.9 Status: Resolved (2) UTI (urinary tract infection) ICD Code: N39.0 Status: Acute (3) Neurogenic bladder ICD Code: N31.9 Status: Acute (4) Acute on chronic renal insufficiency ICD Code: N28.9 Status: Acute (5) Rhabdomyolysis ICD Code: M62.82 Status: Acute (6) Elevated troponin ICD Code: R79.89 Status: Acute (7) DVT (deep venous thrombosis) ICD Code: I82.409 Status: Acute (8) DM (diabetes mellitus) ICD Code: E11.9 Status: Chronic Assessment and Plan 1. Sepsis, persistent MSSA bacteremia, with infected right fem pop myra. Has fem pop graft in RLE with surrounding fluid which is definitely infected, status post aspiration with interventional radiology, with MSSA in culture. The patient declined surgery by Dr. Fairchild and requested transfer to [facility] to be seen by Dr. Mirza who initially put the graft in less than a year ago. I discussed the patient with Dr. Mirza on 01/16 who agreed to accept the patient but he also felt it would be acceptable for the patient to be treated by vascular surgery here. I discussed with Dr. Fairchild and Dr. Alvarenga vascular surgery here - Dr. Alvarenga on consult for second opinion and has offered surgery, patient now stating he would like to stay at [facility] for surgery. Discussed with Dr. Alvarenga last night - proceed with CTA runoff and vein mapping. Discussed today with Dr. Lee Beaver. Cont IV antibiotics. 2. Severe emphysematous UTI (recurrent or worsening as compared to previous CT done 09/2014) - with air in the extraperitoneal pelvis suggestive of possible developing fistula or bladder perforation. Urine cx growing E. Coli ESBL and staph aureus. I discussed in detail with Dr. Beaver and Dr. Lopez previously. Plan is to continue paul and antibiotics for some weeks and repeat CT in 2 weeks as usually extraperitoneal bladder perforation will heal on their own. The patient is on ertapenem for this infection. 2. Chronic urinary retention possibly due to neurogenic bladder - self catheterizes at home. Continue paul as per urology. 4. Acute on Chronic kidney injury: Creatinine 3.55 on admission, improved now down to 2. Continue IVF normal saline at a rate of 100 mL per hour. 5. Rhabdomyolysis - resolved. PT/OT following. OT does recommend inpatient rehab. 6. Elevated Trop: Trop 0.07, EKG w/ no acute changes. Likely secondary to worsening renal function. ECHO which showed EF 55-60%. stress test showed " Small size, moderate severity nonreversible apical perfusion abnormality, low risk". Appreciate cardiology input. 7. DM type 2: Uncontrolled. Hgb A1c 8.0. Continue sliding scale w/ Accu- Cheks. Consider starting basal insulin. 8. DVT of right upper popliteal and peroneal tributary, and of right upper extremity in the brachial vein. Continue heparin drip until able to bridge to coumadin. Will need at least 3 months AC for provoked DVT, appreciate hematology input. 9. Left elbow swelling: Orthopedic evaluated pt, CT elbow negative for effusion or abscess. Appreciate assistance. 10. Acute metabolic encephalopathy - improving with treatment of underlying medical illnesses. Mental status still not quite back to baseline as per family. However the patient is alert and oriented 3 and I believe has capacity to make his own decisions at this time. 11. Severe, persistent hypokalemia - improving today, continue repletion 30 meq Po BID. repeat BMP in a.m. 12. Continue PT/OT. Problem Qualifiers (1) Sepsis: Qualified Code: A41.01 - Sepsis due to Methicillin susceptible Staphylococcus aureus (2) DVT (deep venous thrombosis): Qualified Code: I82.431 - Deep vein thrombosis (DVT) of popliteal vein of right lower extremity, unspecified chronicity (3) DM (diabetes mellitus): Melissa Giles MD Jan 20, 2016 10:39 (1) Sepsis: Qualified Code: A41.01 - Sepsis due to Methicillin susceptible Staphylococcus aureus (2) DVT (deep venous thrombosis): Qualified Code: I82.431 - Deep vein thrombosis (DVT) of popliteal vein of right lower extremity, unspecified chronicity (3) DM (diabetes mellitus): Melissa Giles MD Jan 20, 2016 10:39
[2016-01-20] MEDS: LACTATED RINGER'S 1000 ML IV SCH (11:00)
[2016-01-20] MEDS ORDERED: ACETYLCYSTEINE 20% 6,000 MG/30 ML ORAL SOLN VIAL PO ONE (11:00)
--- NOTE | 2016-01-20 11:28 | PD.CAR.PN ---
CVT Progress Note Subjective/Hospital Course: PAD and R LE bypass with presumably purulent fluid around it by aspiration. Objective: Vital Signs Date Time Temp Pulse Resp B/P Pulse Ox O2 Delivery O2 Flow Rate FiO2 01/20/16 08:00 98.5 106 20 165/81 95 01/20/16 04:00 98.0 108 18 167/95 94 01/20/16 00:00 97.4 97 16 157/90 94 01/19/16 20:00 97.8 94 18 167/86 95 01/19/16 16:00 98.0 97 16 169/92 95 01/19/16 12:00 98.5 96 16 163/84 96 Labs: Laboratory Tests Test 01/20/16 06:37 White Blood Count 23.0 TH/MM3 (4.0-11.0) Red Blood Count 3.33 MIL/MM3 (4.50-5.90) Hemoglobin 10.0 GM/DL (13.0-17.0) Hematocrit 29.8 % (39.0-51.0) Mean Corpuscular Volume 89.6 FL (80.0-100.0) Mean Corpuscular Hemoglobin 30.0 PG (27.0-34.0) Mean Corpuscular Hemoglobin 33.5 % Concent (32.0-36.0) Red Cell Distribution Width 14.0 % (11.6-17.2) Platelet Count 371 TH/MM3 (150-450) Mean Platelet Volume 8.6 FL (7.0-11.0) Neutrophils (%) (Auto) 89.4 % (16.0-70.0) Lymphocytes (%) (Auto) 6.5 % (9.0-44.0) Monocytes (%) (Auto) 3.7 % (0.0-8.0) Eosinophils (%) (Auto) 0.3 % (0.0-4.0) Basophils (%) (Auto) 0.1 % (0.0-2.0) Neutrophils # (Auto) 20.6 TH/MM3 (1.8-7.7) Lymphocytes # (Auto) 1.5 TH/MM3 (1.0-4.8) Monocytes # (Auto) 0.8 TH/MM3 (0-0.9) Eosinophils # (Auto) 0.1 TH/MM3 (0-0.4) Basophils # (Auto) 0.0 TH/MM3 (0-0.2) CBC Comment AUTO DIFF Differential Total Cells 100 Counted Neutrophils % (Manual) 90 % (16-70) Band Neutrophils % 4 % (0-6) Monocytes % 2 % (0-8) Neutrophils # (Manual) 22.5 TH/MM3 (1.8-7.7) Metamyelocytes 3 % (0-1) Myelocytes 1 % (0-0) Differential Comment FINAL DIFF MANUAL Platelet Estimate NORMAL (NORMAL) Platelet Morphology Comment NORMAL (NORMAL) Red Cell Morphology Comment NORMAL (NORMAL) Prothrombin Time 19.4 SEC (9.8-11.6) Prothromb Time International 1.7 RATIO Ratio Sodium Level 145 MEQ/L (136-145) Potassium Level 4.0 MEQ/L (3.5-5.1) Chloride Level 112 MEQ/L (98-107) Carbon Dioxide Level 23.9 MEQ/L (21.0-32.0) Anion Gap 9 MEQ/L (5-15) Blood Urea Nitrogen 25 MG/DL (7-18) Creatinine 1.91 MG/DL (0.60-1.30) Estimat Glomerular Filtration 35 ML/MIN (>89) Rate Random Glucose 163 MG/DL (74-106) Calcium Level 7.8 MG/DL (8.5-10.1) Result Diagram: 01/20/1663601/20/16636 Cardiovascular: R groin incision c/d/i with palpable pulse AK incision c/d/i Plan: 1. Altered mental status, but this is my first time meeting him and apparently he was more aware yesterday. Per primary service, may have encephalopathy 2. CT reviewed - fem-AK pop with prosthetic and likely infected. However, given the benign appearance of the wound and limited fluid on the CT, I doubt that the graft infection is the cause of the systemic leukocytosis and AMS. 3. Angiogram today; will likely need graft excision and re-do distal 4. Anticoagulation given DVTs - will not be candidate for GSV harvest for anticipated bypass given acute DVT 5. Needs TTE 6. Broad antibiotics. 7. Will follow and plan re-do distal/graft excision in near future. Jeremie Stubbs MD FACS technical support agent [facility] [phone] Jeremie Stubbs MD Jan 20, 2016 11:28
--- NOTE | 2016-01-20 11:51 | PD.ONC.PN ---
Subjective Subjective Remarks Afebrile overnight. patient resting comfortably. He is receiving leg u/s with mapping. He states he feels tired but is otherwise without complaint. Objective Data Date Time Temp Pulse Resp B/P Pulse Ox O2 Delivery O2 Flow Rate FiO2 01/20/16 08:00 98.5 106 20 165/81 95 01/20/16 04:00 98.0 108 18 167/95 94 01/20/16 00:00 97.4 97 16 157/90 94 01/19/16 20:00 97.8 94 18 167/86 95 01/19/16 16:00 98.0 97 16 169/92 95 01/19/16 12:00 98.5 96 16 163/84 96 01/20/16 01/20/16 01/20/16 06:59 14:59 22:59 Intake Total 0 ml Output Total 450 ml Balance -450 ml Result Diagram: 01/20/16 0637 01/20/16 0637 Laboratory Results Laboratory Tests Test 01/20/16 06:37 White Blood Count 23.0 TH/MM3 Red Blood Count 3.33 MIL/MM3 Hemoglobin 10.0 GM/DL Hematocrit 29.8 % Mean Corpuscular Volume 89.6 FL Mean Corpuscular Hemoglobin 30.0 PG Mean Corpuscular Hemoglobin 33.5 % Concent Red Cell Distribution Width 14.0 % Platelet Count 371 TH/MM3 Mean Platelet Volume 8.6 FL Neutrophils (%) (Auto) 89.4 % Lymphocytes (%) (Auto) 6.5 % Monocytes (%) (Auto) 3.7 % Eosinophils (%) (Auto) 0.3 % Basophils (%) (Auto) 0.1 % Neutrophils # (Auto) 20.6 TH/MM3 Lymphocytes # (Auto) 1.5 TH/MM3 Monocytes # (Auto) 0.8 TH/MM3 Eosinophils # (Auto) 0.1 TH/MM3 Basophils # (Auto) 0.0 TH/MM3 CBC Comment AUTO DIFF Differential Total Cells 100 Counted Neutrophils % (Manual) 90 % Band Neutrophils % 4 % Monocytes % 2 % Neutrophils # (Manual) 22.5 TH/MM3 Metamyelocytes 3 % Myelocytes 1 % Differential Comment FINAL DIFF MANUAL Platelet Estimate NORMAL Platelet Morphology Comment NORMAL Red Cell Morphology Comment NORMAL Prothrombin Time 19.4 SEC Prothromb Time International 1.7 RATIO Ratio Sodium Level 145 MEQ/L Potassium Level 4.0 MEQ/L Chloride Level 112 MEQ/L Carbon Dioxide Level 23.9 MEQ/L Anion Gap 9 MEQ/L Blood Urea Nitrogen 25 MG/DL Creatinine 1.91 MG/DL Estimat Glomerular Filtration 35 ML/MIN Rate Random Glucose 163 MG/DL Calcium Level 7.8 MG/DL Culture Results Microbiology Date/Time Procedure Status Source Growth 01/17/16 16:15 Gram Stain - Final Complete Abscess Other 01/17/16 16:15 Wound Culture - Final Complete Staphylococcus Aureus Administered Medications Medications (Trade) Dose Ordered Sig/Smith Route PRN Reason Start Time Stop Time Status Last Admin Dose Admin Sodium Chloride (NS 1000 ml Inj) 1,000 ml @ 100 mls/hr Q10H IV 01/11/16 18:44 01/19/16 10:30 IV Flush (NS Flush) 2 ml BID FLUSH 01/11/16 21:00 01/19/16 10:28 Acetaminophen (Tylenol) 650 mg Q4H PRN PO FEVER/PAIN 1-2 01/11/16 18:45 01/14/16 18:25 Acetaminophen/ Hydrocodone Bitart ([place] 5-325 Mg) 1 tab Q4H PRN PO PAIN 3-5 01/11/16 19:15 01/19/16 22:26 Heparin Sodium (Porcine) 2500 units 2,500 units UNSCH PRN IV APTT 25 TO 39 01/12/16 01:15 01/12/16 02:48 Heparin Sodium/ Dextrose (Heparin-D5W Inj) 250 ml @ 0 mls/hr TITRATE IV 01/11/16 19:15 01/20/16 00:04 Calcium Carbonate 500 mg 500 mg Q12HR CHEW 01/13/16 09:00 01/19/16 22:03 Ertapenem 1000 mg/ Sodium Chloride 100 ml @ 200 mls/hr Q24H IV 01/13/16 12:00 01/19/16 11:11 Cefazolin Sodium/ Dextrose (Ancef 2 Gm Premix) 50 ml @ 100 mls/hr Q8H IV 01/14/16 14:00 01/20/16 05:29 Atorvastatin Calcium (Lipitor) 40 mg HS PO 01/15/16 21:00 01/19/16 22:02 Amlodipine Besylate (Norvasc) 5 mg DAILY PO 01/15/16 09:45 01/19/16 10:12 Rifampin (Rifampin) 150 mg Q12HR PO 01/15/16 13:00 01/19/16 22:03 Potassium Chloride 30 meq 30 meq Q12HR PO 01/17/16 21:00 01/19/16 22:03 Sodium Bicarbonate/ Sodium Chloride (Sodium Bicarbonate 8.4% Inj/NS 1000 ml Inj) 1,100 ml @ 42 mls/hr Q24H IV 01/19/16 19:00 01/19/16 22:02 Objective Remarks GENERAL: Elderly male, lying in bed in nad. SKIN: Warm and dry. HEAD: Normocephalic. EYES: No injection or drainage. NECK: Supple, trachea midline. CARDIOVASCULAR: +S1/S2 RESPIRATORY: Breath sounds equal bilaterally. No accessory muscle use. GASTROINTESTINAL: Abdomen soft, non-tender, nondistended. EXTREMITIES: No cyanosis. NEUROLOGICAL: awake but fatigued. normal speech Assessment/Plan Problem List: (1) DVT (deep venous thrombosis) Status: Acute Plan: 01/20/16: continue heparin drip. monitor CBC History --Right lower extremity deep venous thrombosis and right upper extremity deep venous thrombosis. --likely triggered by sepsis and immobility. --was laying on the floor for several hours the day prior to presentation. --also a possibility that he had a PICC line placed on the right upper extremity during his hospital stay at [facility] a week prior to presentation. --the thrombosis appeared to be provoked. (2) Sepsis Status: Resolved Plan: --d/t UTI --on multiple antibiotics. (3) Neurogenic bladder Status: Acute Plan: --urology following. --Neurogenic bladder with recurrent urinary tract infection. --has been self-catheterizing. (4) Vascular graft infection Status: Acute Plan: --CTS following Assessment 70y/o male with newly diagnosed DVT's, admitted with urosepsis. h/o Diabetes mellitus. Hepatitis C. He was receiving treatment at [facility]. Plan 1. continue heparin drip. 2. will start coumadin once procedures complete 3. supportive care. Attending Statement The exam, history, and the medical decision-making described in the above note were completed with the assistance of the mid-level provider. I reviewed and agree with the findings presented. I attest that I had a [id number] encounter with the patient on the same day, and personally performed and documented my assessment and findings in the medical record. No bleeding. Tolerating heparin. +MRSA infection. Start coumadin once he is done with invasive procedure. Problem Qualifiers (1) DVT (deep venous thrombosis): Qualified Code: I82.431 - Deep vein thrombosis (DVT) of popliteal vein of right lower extremity, unspecified chronicity (2) Sepsis: Qualified Code: A41.01 - Sepsis due to Methicillin susceptible Staphylococcus aureus Rukhsana Esquivel Jan 20, 2016 11:51 Osbaldo Flowers MD Jan 20, 2016 15:31
--- NOTE | 2016-01-20 12:18 | PD.CAR.PN ---
CVT Progress Note Subjective/Hospital Course: Please see earlier note. 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 I propose a family meeting to discuss over-arching treatment plans. Cancel angiogram for today. Ok to eat for primary service. Objective: Vital Signs Date Time Temp Pulse Resp B/P Pulse Ox O2 Delivery O2 Flow Rate FiO2 01/20/16 08:00 98.5 106 20 165/81 95 01/20/16 04:00 98.0 108 18 167/95 94 01/20/16 00:00 97.4 97 16 157/90 94 01/19/16 20:00 97.8 94 18 167/86 95 01/19/16 16:00 98.0 97 16 169/92 95 Labs: Laboratory Tests Test 01/20/16 06:37 White Blood Count 23.0 TH/MM3 (4.0-11.0) Red Blood Count 3.33 MIL/MM3 (4.50-5.90) Hemoglobin 10.0 GM/DL (13.0-17.0) Hematocrit 29.8 % (39.0-51.0) Mean Corpuscular Volume 89.6 FL (80.0-100.0) Mean Corpuscular Hemoglobin 30.0 PG (27.0-34.0) Mean Corpuscular Hemoglobin 33.5 % Concent (32.0-36.0) Red Cell Distribution Width 14.0 % (11.6-17.2) Platelet Count 371 TH/MM3 (150-450) Mean Platelet Volume 8.6 FL (7.0-11.0) Neutrophils (%) (Auto) 89.4 % (16.0-70.0) Lymphocytes (%) (Auto) 6.5 % (9.0-44.0) Monocytes (%) (Auto) 3.7 % (0.0-8.0) Eosinophils (%) (Auto) 0.3 % (0.0-4.0) Basophils (%) (Auto) 0.1 % (0.0-2.0) Neutrophils # (Auto) 20.6 TH/MM3 (1.8-7.7) Lymphocytes # (Auto) 1.5 TH/MM3 (1.0-4.8) Monocytes # (Auto) 0.8 TH/MM3 (0-0.9) Eosinophils # (Auto) 0.1 TH/MM3 (0-0.4) Basophils # (Auto) 0.0 TH/MM3 (0-0.2) CBC Comment AUTO DIFF Differential Total Cells 100 Counted Neutrophils % (Manual) 90 % (16-70) Band Neutrophils % 4 % (0-6) Monocytes % 2 % (0-8) Neutrophils # (Manual) 22.5 TH/MM3 (1.8-7.7) Metamyelocytes 3 % (0-1) Myelocytes 1 % (0-0) Differential Comment FINAL DIFF MANUAL Platelet Estimate NORMAL (NORMAL) Platelet Morphology Comment NORMAL (NORMAL) Red Cell Morphology Comment NORMAL (NORMAL) Prothrombin Time 19.4 SEC (9.8-11.6) Prothromb Time International 1.7 RATIO Ratio Sodium Level 145 MEQ/L (136-145) Potassium Level 4.0 MEQ/L (3.5-5.1) Chloride Level 112 MEQ/L (98-107) Carbon Dioxide Level 23.9 MEQ/L (21.0-32.0) Anion Gap 9 MEQ/L (5-15) Blood Urea Nitrogen 25 MG/DL (7-18) Creatinine 1.91 MG/DL (0.60-1.30) Estimat Glomerular Filtration 35 ML/MIN (>89) Rate Random Glucose 163 MG/DL (74-106) Calcium Level 7.8 MG/DL (8.5-10.1) Result Diagram: 01/20/16 0637 01/20/16 0637 Jeremie Stubbs MD Jan 20, 2016 12:17
[2016-01-20] MEDS: ERTAPENEM INJ 1,000 MG in SODIUM CHLORIDE 0.9% INJ 100 ML IV SCH (12:20)
[2016-01-20] MEDS: amLODIPine BESYLATE 5 MG TAB PO SCH (12:35)
--- NOTE | 2016-01-20 13:17 | HHI.PR ---
Subjective Remarks Pt seen and examined. No new complaints. Paul changed out on Wednesday; urine clear. Objective Vital Signs Vital Signs Date Time Temp Pulse Resp B/P Pulse Ox O2 Delivery O2 Flow Rate FiO2 01/20/16 12:30 97.3 100 18 179/91 95 01/20/16 08:00 98.5 106 20 165/81 95 01/20/16 04:00 98.0 108 18 167/95 94 01/20/16 00:00 97.4 97 16 157/90 94 01/19/16 20:00 97.8 94 18 167/86 95 01/19/16 16:00 98.0 97 16 169/92 95 I/O 01/19/16 01/19/16 01/19/16 01/20/16 01/20/16 01/20/16 07:00 15:00 23:00 07:00 15:00 23:00 Intake Total 844 ml 240 ml 240 ml 0 ml Output Total 1300 ml 1250 ml 750 ml 450 ml Balance -456 ml -1010 ml -510 ml -450 ml Intake Oral 240 ml 240 ml 0 ml IV Total 844 ml Output Urine Total 1300 ml 1250 ml 750 ml 450 ml # Bowel Movements 0 2 1 Result Diagram: 01/20/1637 01/20/16636 Objective Remarks Abd: soft,nt,nd Paul with some sediment Ext: Right LE edema 01/16 Abd: soft,nt,nd Paul with some sediment 01/19 Abd:soft,nt,nd Paul with clear urine Assessment and Plan Assessment and Plan 70 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 Continue IV ABX Will perform another imaging study in 1-2 weeks. 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 01/19 70 y.o male with sepsis and atonic/neurogenic bladder with emphysematous cystitis Continue IV ABx Maintain paul catheter for now Repeat Imagining study in future Crescencio Lopez DO Jan 20, 2016 13:17
--- NOTE | 2016-01-20 14:26 | HHI.IDPN ---
Subjective Subjective Remarks is a 70 y/o CM with PMHx of HTN, DM, Hyperlipidemia and Neurogenic Bladder w/ Self Catheterization who was brought to the ER by EMS for c/o fever and elevated BS of 500 at home. Admitted with sepsis, now being evaluated and managed for MSSA bacteremia unclear source, ESBL and MSSA UTI in a patient that self caths at home. Overnight events reviewed. No fevers. UO ok No rash No diarrhea Is scared to let anyone touch his feet in anticipation of pain in his feet. Antibiotics Ancef IV Ertapenem IV Rifampin oral Lines Line sites with no e/o infection. Past Medical History reviewed. Allergies: Coded Allergies: *MDRO Multi-Drug Resistant Organism (Verified Adverse Reaction, Unknown, 01/13/16) ESBL+E.Coli (urine-01/11/16) Objective . Vital Signs Date Time Temp Pulse Resp B/P Pulse Ox O2 Delivery O2 Flow Rate FiO2 01/20/16 13:52 165/85 01/20/16 12:30 97.3 100 18 179/91 95 01/20/16 08:00 98.5 106 20 165/81 95 01/20/16 04:00 98.0 108 18 167/95 94 01/20/16 00:00 97.4 97 16 157/90 94 01/19/16 20:00 97.8 94 18 167/86 95 01/19/16 16:00 98.0 97 16 169/92 95 01/19/16 01/19/16 01/20/16 15:00 23:00 07:00 Intake Total 240 ml 240 ml 0 ml Output Total 1250 ml 750 ml 450 ml Balance -1010 ml -510 ml -450 ml Intake Oral 240 ml 240 ml 0 ml Output Urine Total 1250 ml 750 ml 450 ml # Bowel Movements 2 1 . Laboratory Tests Test 01/20/16 06:37 White Blood Count 23.0 TH/MM3 Red Blood Count 3.33 MIL/MM3 Hemoglobin 10.0 GM/DL Hematocrit 29.8 % Mean Corpuscular Volume 89.6 FL Mean Corpuscular Hemoglobin 30.0 PG Mean Corpuscular Hemoglobin 33.5 % Concent Red Cell Distribution Width 14.0 % Platelet Count 371 TH/MM3 Mean Platelet Volume 8.6 FL Neutrophils (%) (Auto) 89.4 % Lymphocytes (%) (Auto) 6.5 % Monocytes (%) (Auto) 3.7 % Eosinophils (%) (Auto) 0.3 % Basophils (%) (Auto) 0.1 % Neutrophils # (Auto) 20.6 TH/MM3 Lymphocytes # (Auto) 1.5 TH/MM3 Monocytes # (Auto) 0.8 TH/MM3 Eosinophils # (Auto) 0.1 TH/MM3 Basophils # (Auto) 0.0 TH/MM3 CBC Comment AUTO DIFF Differential Total Cells 100 Counted Neutrophils % (Manual) 90 % Band Neutrophils % 4 % Monocytes % 2 % Neutrophils # (Manual) 22.5 TH/MM3 Metamyelocytes 3 % Myelocytes 1 % Differential Comment FINAL DIFF MANUAL Platelet Estimate NORMAL Platelet Morphology Comment NORMAL Red Cell Morphology Comment NORMAL Laboratory Tests Test 01/20/16 06:37 Sodium Level 145 MEQ/L Potassium Level 4.0 MEQ/L Chloride Level 112 MEQ/L Carbon Dioxide Level 23.9 MEQ/L Anion Gap 9 MEQ/L Blood Urea Nitrogen 25 MG/DL Creatinine 1.91 MG/DL Estimat Glomerular Filtration 35 ML/MIN Rate Random Glucose 163 MG/DL Calcium Level 7.8 MG/DL Microbiology Date/Time Procedure Status Source Growth 01/17/16 16:15 Gram Stain - Final Complete Abscess Other 01/17/16 16:15 Wound Culture - Final Complete Staphylococcus Aureus Imaging Last Impressions Myocardial Perfusion Scan Nuc Med 01/13/16 0000 Signed Impressions: Service Date/Time: Wednesday, January 13, 2016 10:52 - CONCLUSION: Small size, moderate severity nonreversible apical perfusion abnormality. RISK CATEGORY: Low (<1%% Annual Mortality Rate) Jayce Ham MD Shoulder X-Ray 01/12/16 0000 Signed Impressions: Service Date/Time: Tuesday, January 12, 2016 09:24 - CONCLUSION: 1. No acute fracture or subluxation of the left shoulder. 2. Probably an old fracture of the distal clavicle, healed. 3. 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 Jayce Ng MD Lower Extremity Ultrasound 01/11/16 1600 Signed Impressions: Service Date/Time: Monday, January 11, 2016 17:13 - CONCLUSION: 1. Nonocclusive thrombus in the popliteal vein and peroneal tributary. More central venous system is sonographically normal. 2. Tube like graft/stent in the right groin region with a surrounding hypoechoic region which does not show color Doppler flow. Diagnostic considerations include a thrombosed aneurysm treated with a covered stent/graft versus fluid around the regional vasculature. The latter would be concerning for possible perivascular infection. If patient's symptomatology is characteristic of an infectious or inflammatory process, CTA of the pelvis would be recommended for further characterization.. Carroll Arteaga MD Knee X-Ray 01/11/16 8949 Signed Impressions: Service Date/Time: Monday, January 11, 2016 16:43 - CONCLUSION: Small joint effusion. Jessica Blackburn MD Chest X-Ray 01/11/16 7050 Signed Impressions: Service Date/Time: Monday, January 11, 2016 16:40 - CONCLUSION: No acute cardiopulmonary disease. Jessica Blackburn MD Physical Exam GENERAL: Thin built, Under nourished, well developed patient, in no apparent distress. SKIN: No rashes. HEAD: Atraumatic. Normocephalic. No temporal or scalp tenderness. EYES: Pupils equal round and reactive. Extraocular motions intact. No scleral icterus. No injection or drainage. ENT: Nose without bleeding, purulent drainage or septal hematoma. Throat without erythema, tonsillar hypertrophy or exudate. Uvula midline. Airway patent. NECK: Trachea midline. Supple, nontender, no meningeal signs. CARDIOVASCULAR: RRR, murmur. RESPIRATORY: Clear to auscultation. Breath sounds equal bilaterally. GASTROINTESTINAL: Abdomen soft, tenderness noted in Suprapubic region. MUSCULOSKELETAL: RLE with significant swelling noted. Tender to touch. Slight erythema. Right foot plantar aspect with multiple septic emboli noted. NEUROLOGICAL: Awake and alert. Responds to questions but sluggish. Psych: cooperative IV line sites with no e.o infection Assessment & Plan Remarks Sepsis present on admission (patient was on antibiotics prior to admission ?). Fever, elevated WBC and bacteremia as source. MSSA bacteremia, endocarditis: ? 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 MSSA and ESBL E.coli UTI and Emphysematous Cystitis: Patient self catheterizes at home. Neurogenic bladder. Pneumonia Persistent bacteremia: likely source infected aneurysm seeding as organisms match. Acute metabolic encephalopathy: likely sepsis related improving. Acute renal failure: ? sepsis related, baseline not known. DM uncontrolled on admission. DVT Right LE Recent admission at [facility] as risk factor for infection. Recs Continue Ancef IV q8 hrs equivalent renal dose adjusted. Continue Ertapenem IV (ASP criteria: ESBL UTI/emphysematous cystitis present on admission in a patient that self catheterizes at home) Continue Rifampin oral (has a graft material in thigh) for now. Reviewed OSH records was treated with Ceftriaxone IV for UTI. Urine cultures with normal consuelo. No workup for infected aneurysm and no blood cultures found. CT C/A/P: septic emboli, Emphysematous cystitis. Reviewed past and current images with Urology. Emphysematous changes appear increased compared to a year back. ? recurrent or chronic infections related. Also noted inguinal and pelvic basin free air. recommends continuing ABX at this time and re-image in 7-10 days during this hospitalization. CHUCHO negative but has evidence of septic emboli (likely showered all emboli to periphery) Suspect the RLE septic emboli are from right infected graft/aneurysm. CTS note from today says patient is confused and would suggest a family meeting to resolve this issue. Notified [facility] team. Follow clinically. d/w patient and RN. d/w clinical pharmacist. Anali Beaver MD Jan 20, 2016 14:26
--- NOTE | 2016-01-20 15:58 | RADRPT ---
EXAM DATE/TIME: 01/20/2016 10:34 [facility] COMPARISON: No previous studies available for comparison. INDICATIONS : Pre op bypass. MEDICAL HISTORY : Hypercholesterolemia. Hypertention. Gastroesophageal reflux. Neurogenic vish dder. Arthritis. Diabetes. MDRO. SURGICAL HISTORY : Right leg stent. ENCOUNTER: Initial ACUITY: 1 day PAIN SCORE: 10/10 LOCATION: Bilateral legs. GREATER SAPHENOUS VEIN THIGH: PROXIMAL: Right 5 mm Left 6 mm MID: Right 2 mm Left 2 mm DISTAL: Right 2 mm Left 2 mm CALF: PROXIMAL: Right 2 mm Left 2 mm MID: Right 2 mm Left 2 mm DISTAL: Right 2 mm Left 3 mm FINDINGS: The venous system of the lower extremities are patent by color Doppler imaging. Measurements of the leg veins (in mm) are listed above. CONCLUSION: Venous mapping as described above. Wesley Bennett MD FACR on January 20, 2016 at 15:55 Board Certified Radiologist. This report was verified electronically.
--- NOTE | 2016-01-20 15:58 | RADRPT ---
EXAM DATE/TIME: 01/20/2016 10:14 [facility] COMPARISON: No previous studies available for comparison. INDICATIONS : Pre op bypass. MEDICAL HISTORY : Hypercholesterolemia. Hypertention. Gastroesophageal reflux. Neurogenic bladder. Arthritis. Diabetes. MDRO. SURGICAL HISTORY : Right leg stent. ENCOUNTER: Initial ACUITY: 1 day PAIN SCORE: 10/10 LOCATION: Bilateral legs. TECHNIQUE: Venous ultrasound of the left and right leg was performed from the inguinal ligament to the proximal calf. Real-time, color Doppler and spectral tracing, compression and augmentation techniques were us ed. FINDINGS: RIGHT LEG: There is normal compressibility of the deep venous system from the inguinal region to the proximal ca lf. No echogenic clot is seen in the lumen of the common femoral, femoral, popliteal, and posterior tibial veins. There is a normal response of the venous system to proximal and distal augmentation an d respiration. There is small amount of fluid characteristic of seroma surrounding the graft in the right leg in the inguinal region. LEFT LEG: There is normal compressibility of the deep venous system from the inguinal region to the proximal ca lf. No echogenic clot is seen in the lumen of the common femoral, femoral, popliteal, and posterior tibial veins. There is a normal response of the venous system to proximal and distal augmentation an d respiration. CONCLUSION: 1. No evidence of deep venous thrombosis. Shon Mancilla MD on January 20, 2016 at 15:53 Board Certified Radiologist. This report was verified electronically.
--- NOTE | 2016-01-20 16:00 | RADRPT ---
EXAM DATE/TIME: 01/20/2016 11:36 [facility] COMPARISON: US ARM BILATERAL VENOUS DOPPLER, January 14, 2016, 10:33. INDICATIONS : Pre op bypass. MEDICAL HISTORY : Hypercholesterolemia. Hypertention. Gastroesophageal reflux. Neurogenic blad christos. Arthritis. Diabetes. MDRO. SURGICAL HISTORY : Right leg stent. ENCOUNTER: Initial ACUITY: 1 day PAIN SCORE: 3/10 LOCATION: Bilateral arms. FINDINGS: RIGHT UPPER EXTREMITY: There is spontaneous flow documented in the brachial, basilic, cephalic, a xillary, and subclavian veins. The vessels are compressible and augmentation response is documented. No filling defects are seen. The flow is phasic with respiration. Direction of flow in the jugula r vein is caudal. LEFT UPPER EXTREMITY: There is spontaneous flow documented in the brachial, basilic, cephalic, ax illary, and subclavian veins. The vessels are compressible and augmentation response is documented. No filling defects are seen. The flow is phasic with respiration. Direction of flow in the jugular vein is caudal. CONCLUSION: Negative for deep venous thrombosis. Wesley Bennett MD FACR on January 20, 2016 at 15:57 Board Certified Radiologist. This report was verified electronically.
--- NOTE | 2016-01-20 16:23 | RADRPT ---
EXAM DATE/TIME: 01/20/2016 12:05 [facility] COMPARISON: No previous studies available for comparison. INDICATIONS : Pre op bypass. MEDICAL HISTORY : Hypercholesterolemia. Hypertention. Gastroesophageal reflux. Neurogenic bladder. Arthritis. Diabetes. MDRO. SURGICAL HISTORY : Right leg stent. ENCOUNTER: Initial ACUITY: 1 day PAIN SCORE: 5/10 LOCATION: Bilateral arms. CEPHALIC: ORIGIN: Right 3 mm Left 3 mm MID-ARM: Right 3 mm Left 2 mm ELBOW: Right 2 mm Left 2 mm FOREARM: Right Non-visualized Left Non-visualized WRIST: Right Non-visualized Left Non-visualized BASILIC: ORIGIN: Right 3 mm Left 3 mm MID-ARM: Right 2 mm Left 3 mm ELBOW: Right 3 mm Left 4 mm ARTERIES: BRACHIAL: Right 4 mm Left 4 mm ULNAR: Right 2 mm Left 2 mm RADIAL: Right 3 mm Left 3 mm VEINS: RADIAL: Right 2 mm Left 2 mm ULNAR: Right 2 mm Left 2 mm FINDINGS: The venous system of the upper extremities are patent by color Doppler imaging. Measurements of the arm veins (in mm) are listed above. CONCLUSION: Venous mapping as detailed above. John Mills Jr., MD on January 20, 2016 at 16:18 Board Certified Radiologist. This report was verified electronically.
[2016-01-20] MEDS: ACETAMINOPHEN/HYDROcodone 325 MG/5 MG TAB PO PRN ×2 (17:10→23:52)
[2016-01-20] MEDS: ATORVASTATIN 40 MG TAB PO SCH (20:56)
[2016-01-20 23:28] LABS: APTT (PATIENT) 71.3 SEC (24.3-30.1)
[2016-01-20] MEDS: SODIUM BICARBONATE 8.4% INJ 100 MEQ in SODIUM CHLOR 0.9% 1000 ML INJ 1,000 ML IV SCH (23:56)
[2016-01-21 00:05] VITALS: BP 174/99; PULSE 103; RESP 18; TEMP 98.1; O2SAT 96
[2016-01-21] MEDS: HEPARIN-D5W INJ 250 ML IV SCH (01:07)
[2016-01-21 04:00] VITALS: BP 167/92; PULSE 105; RESP 18; TEMP 97.6; O2SAT 95
[2016-01-21] MEDS: ceFAZolin 2 GM PREMIX 50 ML IV SCH ×3 (05:43→22:06)
[2016-01-21 06:05] LABS: APTT (PATIENT) 57.6 SEC (24.3-30.1); INTERNATIONAL NORMALIZED RATIO 1.8 RATIO; PROTHROMBIN TIME - PATIENT 20.5 SEC (9.8-11.6)
[2016-01-21 06:25] LABS: BICARBONATE 27.7 MEQ/L (21.0-32.0); POTASSIUM 3.7 MEQ/L (3.5-5.1)
[2016-01-21] MEDS: INSULIN ASPART SUPPLEMENTAL SCALE SQ SCH ×4 (07:00→22:02)
[2016-01-21 08:00] VITALS: BP 133/88; PULSE 107; RESP 16; TEMP 98.2; O2SAT 95
--- NOTE | 2016-01-21 08:55 | PD.CAR.PN ---
CVT Progress Note Subjective/Hospital Course: The patient is unchanged on my exam this morning, He is interactive but not clear speech, in part due to poor fitting dentition He notes that his R LE pain is better today Moving leg.. Objective: Vital Signs Date Time Temp Pulse Resp B/P Pulse Ox O2 Delivery O2 Flow Rate FiO2 01/21/16 04:00 97.6 105 18 167/92 95 01/21/16 00:52 14 01/21/16 00:05 98.1 103 18 174/99 96 01/20/16 20:59 97.1 100 20 149/86 95 01/20/16 16:00 97.1 100 20 138/89 96 01/20/16 13:52 165/85 01/20/16 12:30 97.3 100 18 179/91 95 Labs: Laboratory Tests Test 01/20/16 01/21/16 22:44 05:47 Activated Partial 71.3 SEC 57.6 SEC Thromboplast Time (24.3-30.1) (24.3-30.1) Prothrombin Time 20.5 SEC (9.8-11.6) Prothromb Time International 1.8 RATIO Ratio Sodium Level 146 MEQ/L (136-145) Potassium Level 3.7 MEQ/L (3.5-5.1) Chloride Level 110 MEQ/L (98-107) Carbon Dioxide Level 27.7 MEQ/L (21.0-32.0) Anion Gap 8 MEQ/L (5-15) Blood Urea Nitrogen 27 MG/DL (7-18) Creatinine 1.90 MG/DL (0.60-1.30) Estimat Glomerular Filtration 35 ML/MIN (>89) Rate Random Glucose 129 MG/DL (74-106) Calcium Level 8.0 MG/DL (8.5-10.1) Result Diagram: 01/20/16 0637 01/21/16 0547 Incision: R groin with palpable pulse R AK pop incision healed without erythema Plan: 1. Infected R fem-AK pop. For this he needs angiogram and potential graft excision and re-do. However, I still don't believe this is driving his leukocytosis and agree with further infectious work-up. Additionally, there is some concern about the patient/family desire to pursue further vascular treatment here at [facility] vs another facility. I am happy to perform all the services he needs but will discuss with patient to the extent he is able as well as the family when available 2. TTE today per cardiology note. 3. Continue antibiotics 4. Continue heparin gtt for acute DVT. Unfortunately, new DVT precludes harvesting of GSV for re-do distal bypass 5. Needs PT for mobility. Should ambulate as much as tolerated 6. Tentatively on the schedule for for diagnostic angiogram pending family discussion Jeremie Stubbs MD Jan 21, 2016 08:55
[2016-01-21] MEDS: RIFAMPIN 150 MG CAP PO SCH ×2 (09:33→21:54)
[2016-01-21] MEDS: amLODIPine BESYLATE 5 MG TAB PO SCH (09:33)
[2016-01-21] MEDS: SODIUM CHLORIDE 0.9% FLUSH 5 ML FLUSH FLUSH SCH ×2 (09:34→21:00)
[2016-01-21] MEDS: POTASSIUM CHLORIDE 10 MEQ CONTROLLED RELEASE TAB PO SCH ×2 (09:34→21:54)
[2016-01-21] MEDS: CALCIUM CARBONATE 500 MG CHEWABLE TAB CHEW SCH ×2 (09:34→21:54)
--- NOTE | 2016-01-21 11:02 | HHI.PR ---
Subjective Remarks Patient mumbling more today, c/o thirst. HR slightly elevated. Objective Vitals Vital Signs Date Time Temp Pulse Resp B/P Pulse Ox O2 Delivery O2 Flow Rate FiO2 01/21/16 08:00 98.2 107 16 133/88 95 01/21/16 04:00 97.6 105 18 167/92 95 01/21/16 00:52 14 01/21/16 00:05 98.1 103 18 174/99 96 01/20/16 20:59 97.1 100 20 149/86 95 01/20/16 16:00 97.1 100 20 138/89 96 01/20/16 13:52 165/85 01/20/16 12:30 97.3 100 18 179/91 95 I/O 01/20/16 01/20/16 01/20/16 01/21/16 01/21/16 01/21/16 07:00 15:00 23:00 07:00 15:00 23:00 Intake Total 0 ml 430 ml Output Total 450 ml 1000 ml 1100 ml 150 ml Balance -450 ml -570 ml -1100 ml -150 ml Intake Oral 0 ml 0 ml IV Total 430 ml Output Urine Total 450 ml 1000 ml 1100 ml 150 ml # Bowel Movements 1 1 0 Result Diagram: 01/20/16 0637 01/21/16 0547 Objective Remarks GENERAL: Petite rolly CM patient in NAD. SKIN: Warm and dry. HEAD: Normocephalic. EYES: No scleral icterus. No injection or drainage. NECK: Supple, trachea midline. No JVD or lymphadenopathy. CARDIOVASCULAR: Regular rate and rhythm without murmurs, gallops, or rubs. RESPIRATORY: Breath sounds equal bilaterally. No accessory muscle use. GASTROINTESTINAL: Abdomen soft, non-tender, nondistended. EXTREMITIES: 1+ right pedal edema. NEUROLOGICAL: Awake, alert, and oriented to self, place not month. Non-focal. Flat affect. difficult to understand speech, he mumbles. A/P Problem List: (1) Sepsis ICD Code: A41.9 Status: Resolved (2) UTI (urinary tract infection) ICD Code: N39.0 Status: Acute (3) Neurogenic bladder ICD Code: N31.9 Status: Acute (4) Acute on chronic renal insufficiency ICD Code: N28.9 Status: Acute (5) Rhabdomyolysis ICD Code: M62.82 Status: Acute (6) Elevated troponin ICD Code: R79.89 Status: Acute (7) DVT (deep venous thrombosis) ICD Code: I82.409 Status: Acute (8) DM (diabetes mellitus) ICD Code: E11.9 Status: Chronic Assessment and Plan 1. 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 Has fem pop graft in RLE with surrounding fluid which is definitely infected, status post aspiration with interventional radiology, with MSSA in culture. The patient declined surgery by Dr. Fairchild and requested transfer to [facility] to be seen by Dr. Mirza who initially put the graft in less than a year ago. I discussed the patient with Dr. Mirza on 01/16 who agreed to accept the patient but he also felt it would be acceptable for the patient to be treated by vascular surgery here. I discussed with Dr. Fairchild and Dr. Alvarenga vascular surgery here - Dr. Alvarenga on consult for second opinion and has offered surgery, patient now stating he would like to stay at [facility] for surgery, however surgery on hold as there is now a question of patient's capacity as his mental status waxes and wanes as well as family's understanding of risks/benefits of proceeding with surgery, as patient has multiple other underlying serious infections and is clearly high risk for surgery. I have consulted palliative care for a 2nd opinion on capacity and to help facilitate goals of care and family communication. Discussed with Dr. Alvarenga this morning. I discussed in detail with the patient's daughter this morning in detail and all questions answered. Cont IV antibiotics/cefazolin as per Dr. Lee Beaver. 2. Severe emphysematous UTI (recurrent or worsening as compared to previous CT done 09/2014) - with air in the extraperitoneal pelvis suggestive of possible developing fistula or bladder perforation. Urine cx growing E. Coli ESBL and staph aureus. I discussed in detail with Dr. Beaver and Dr. Lopez previously. Plan is to continue paul and antibiotics for some weeks and repeat CT in 2 weeks as usually extraperitoneal bladder perforation will heal on their own. The patient is on ertapenem for this infection. 2. Chronic urinary retention possibly due to neurogenic bladder - self catheterizes at home. Continue paul as per urology. 4. Acute on Chronic kidney injury: Creatinine 3.55 on admission, improved now down to 2. on IVF. 5. Rhabdomyolysis - resolved. PT/OT following. OT does recommend inpatient rehab. 6. Elevated Trop: Trop 0.07, EKG w/ no acute changes. Likely secondary to worsening renal function. ECHO which showed EF 55-60%. stress test showed " Small size, moderate severity nonreversible apical perfusion abnormality, low risk". Appreciate cardiology input. 7. DM type 2: Uncontrolled. Hgb A1c 8.0. Continue sliding scale w/ Accu- Cheks. Consider starting basal insulin. 8. DVT of right upper popliteal and peroneal tributary, and of right upper extremity in the brachial vein. Continue heparin drip until able to bridge to coumadin. Will need at least 3 months AC for provoked DVT, appreciate hematology input. 9. Left elbow swelling: Orthopedic evaluated pt, CT elbow negative for effusion or abscess. Appreciate assistance. 10. Acute metabolic encephalopathy - improving at times, however patient's daughter states he is nowhere near baseline. Will proceed with neuro workup, including head CT, labs, EEG, will consult neurology for opinon. Rule out stroke /septic emboli. improving with treatment of underlying medical illnesses. Cont ST. 11. Severe, persistent hypokalemia - improving today, continue repletion 30 meq Po BID. repeat BMP in a.m. 12. Continue PT/OT. Problem Qualifiers (1) Sepsis: Qualified Code: A41.01 - Sepsis due to Methicillin susceptible Staphylococcus aureus (2) DVT (deep venous thrombosis): Qualified Code: I82.431 - Deep vein thrombosis (DVT) of popliteal vein of right lower extremity, unspecified chronicity (3) DM (diabetes mellitus): Melissa Giles MD Jan 21, 2016 11:02
[2016-01-21] MEDS: ERTAPENEM INJ 1,000 MG in SODIUM CHLORIDE 0.9% INJ 100 ML IV SCH (11:25)
--- NOTE | 2016-01-21 11:37 | RADRPT ---
EXAM DATE/TIME: 01/21/2016 10:58 [facility] COMPARISON: No previous studies available for comparison. INDICATIONS : Altered mental status. RADIATION DOSE: 56.77 CTDIvol (mGy) MEDICAL HISTORY : Cardiovascular disease. Diabetes mellitus type 2. Hypertension. SURGICAL HISTORY : None. ENCOUNTER: Initial ACUITY: 1 day PAIN SCALE: 0/10 LOCATION: cranial TECHNIQUE: Multiple contiguous axial images were obtained of the head. Using automated exposure control and adj ustment of the mA and/or kV according to patient size, radiation dose was kept as low as reasonably a chievable to obtain optimal diagnostic quality images. FINDINGS: CEREBRUM: There is mild cerebral atrophy. Ventricles are normal in size. There is mild expected dilatation of t he right frontal horn. There is adjacent encephalomalacia adjacent to right frontal horn and there is mild periventricular white matter low attenuation. There is a 9 mm ossification in the extra-axial s pace in the right parietal high convexity. No evidence of midline shift, mass lesion, hemorrhage or acute infarction. No extra-axial fluid collections are seen. POSTERIOR FOSSA: The cerebellum and brainstem demonstrate no acute finding. The 4th ventricle is midline. The cerebe llopontine angle is unremarkable. EXTRACRANIAL: Visualized sinuses are clear. SKULL: The calvaria is intact. No evidence of skull fracture. CONCLUSION: 1. No acute intracranial abnormality is identified. 2. Chronic changes include mild cerebral atrophy and periventricular white matter low attenuation richard racteristic of chronic microvascular ischemia. Additionally, there is encephalomalacia in the right f rontal lobe likely related to prior ischemia. 3. 9 mm extra-axial ossification in the right parietal high convexity may represent a calcified menin gioma. Jayce Peck MD on January 21, 2016 at 11:30 Board Certified Radiologist. This report was verified electronically.
[2016-01-21 12:00] VITALS: BP 139/91; PULSE 108; RESP 16; TEMP 97.5; O2SAT 97
--- NOTE | 2016-01-21 12:08 | PD.CONS ---
Consult Service Palliative Care Consult Requested By Dr. Twan Beaver, Dr. Giles Primary Care Physician Evelina Dahl MD Reason for Consultation a. To assist with evaluation and management of symptoms including: Encephalopathy b. To assist medical decision maker(s) with: better understanding of current medical conditions; weighing benefits/burdens of medical treatment options; making medical treatment decisions. (Piper Steve SUSIE) HPI History of Present Illness This 70-year-old man presented to the ED on via EMS with complaints of fever him hyperglycemia. Reporting blood sugar at 500 that day. Or he took 80 units of insulin around 7 AM. He was denying fever, chills, headache, dizziness , chest pain, palpitations, cough, abdominal pain nausea vomiting diarrhea or constipation. Reactive, back pain weakness or extremity pain. Patient normally ambulatory with walker. Her EMS they reported patient was found lying on the floor of his bathroom by a neighbor. Neighbor reported that the patient said he was tired since he laid down to rest. EMS reported temperature on their arrival was 102 oral. He received 1 L IV fluids en route by EMS. With known history of diabetes, GERD, neurogenic bladder, hypertension, CAD. * ED course: At ED arrival patient temp 100.9, tachycardic 125 (regular rate and rhythm), blood pressure elevated 151/121. Blood sugar 374 on arrival. Patient appearing chronically ill but in no acute distress. He was alert and oriented no focal neuro deficits. Noted with significant edema to lower extremities. WBC elevated 27.6. Lactic acid 1.8. BUN 84/creatinine 3.55 with GFR of 17. UA indicative of probable UTI many WBCs. CXR= no acute cardiopulmonary disease process evidence of old fracture left clavicle x-ray right knee= small joint effusion. Ultrasound right lower extremity= nonocclusive thrombus in popliteal vein and peroneal . Questionable fluid collection surrounding femoral bypass graft. CT recommend.(Given elevated creatinine dye could further kidney injury) antibiotics initiated. He was admitted for further evaluation and management of severe sepsis, UTI, dehydration, DVT * [Of note patient reported recent hospitalization at [facility] for sepsis was unable to provide much detail but reported WBC was 35 at that time] ----->>> records requested * ID consulted. Remains on vancomycin, Zosyn, best cultures obtained. Further CTA imaging pending due to elevated renal function. * Cardiology consulted for elevated troponin (0.07), total CK 559, CK-MB and CK- MB percentage normal. Cardiology notes minimal troponin elevation in the presence of renal failure, nonspecific. Patient with no chest pain no cardiac history. plan for nuclear stress test to exclude ischemia but would likely medically treat. Patient also noted with significant cardiac murmur echocardiogram ordered. * CV surgery consulted--recommend CTA with runoff wants renal function improved ; also could consider ultrasound-guided aspiration of fluid is from region and lower extremity were status. Does not recommend any surgical interventions currently as would increase risk of introducing infection. * 2-D echo 01/12= systolic function normal. EF 5560 percent. Wall motion normal. CHUCHO 01/14= thickness normal systolic function normal EF 55-60% no wall motion abnormalities. No evidence of vegetation on aortic, mitral valve. No evidence of thrombus in left atrium, no evidence of thrombus right atrium. No evidence vegetation on tricuspid or pulmonic valves. No evidence of Endocarditis. * Orthopedics consulted 01/13 for left olecranon swelling with mild pain-- recommend CT left elbow. May need ultrasound-guided aspiration or possible I&D pending on findings. 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 Patient may require in the future permanent drainage with possible SP tube for undergo TURP, done as outpatient, urology to follow. * Hematology consulted DVT of right lower extremity, right upper extremity --recommends heparin drip and bridged to Coumadin after procedures are done,. Thrombus likely provoked (? If patient had PICC during most recent hospitalization ) continue antibiotics , continue other supportive care. Recommend anticoagulation for 6 months and until fully mobile. * 01/16 continues to have collection of fluid around graft in groin, still recommended for CTA however despite hydration and other supportive measures renal function not improving so CT surgery recommends ultrasound-guided aspiration of the collection to rule out this as source of infection, patient may need removal of graft---->> patient underwent ultrasound-guided drainage of complex fluid around right femoral graft. 10 cc of purulent material aspirated and sent for cytology. * 01/17 CV surgery notes patient with infection to the right femoral graft site no aneurysm but collection surrounding the graft may see the infection tracking all the way down the popliteal space though it is not currently evident. felt that he needs urgent operation for removal of the graft and there is high risk that removal will result in ischemia to the leg and could consequently resulted in loss of the leg either below or above the knee. Per CV surgery patient was adamant he would not have surgery here and demanded to be transferred to Dr. Mirza at [facility] who did prior/initial surgery. CV surgery does recommend removal of the graft DEZ. * CV surgery again consulted Dr. Alvarenga consulted for second opinion; additionally Dr. Mirza also discussed with medical attending he would accept the pt, however also felt would be acceptable to the patient treated by vascular surgery here at [facility]. Dr. Alvarenga recommend proceed with CTA runoff for vein mapping. Dr. Alvarenga also surgical records from prior hospitalization. * 01/19 CV surgery notes some confusion from the patient in terms of his desire to have infected graft surgically treated here versus another facility recommended a family meeting to review broad treatment plans recommends cancel angiogram and work with patient and family to clarify goals of treatment. Otherwise,Tentatively schedule for for diagnostic angiogram pending family discussion. Medical attending notes a length discussion with patient and family regarding condition, options. Palliative care was consulted to render a second opinion on patient's capacity for decision-making as well as to assist patient and family with clarification of goals of treatment. Patient white count remains elevated at 23. Urine creatinine remain elevated 27 /1.90. GFR 35. Patient remains on rifampin, cefazolin, ertapenem. Head CT obtained 01/20= no acute intracranial abnormality. Chronic changes include mild cerebral atrophy and periventricular white matter low attenuation characteristic chronic microvascular ischemia. He notes encephalomalacia in the right frontal lobe likely related to prior ischemia. Patient seen in room no visitors present. He is awake and eating a popsicle. Of note, He coughs frequently while eating popsicle. Patient is mostly oriented to self, hospital, year. When inquiring as to why he is in the hospital currently he tells me for urine infection. He appears to have some limited insight to current hospitalization, also appears to have some reasonable recent memory/insight of recent hospitalization, he is able to tell me that he was recently at [facility] for a UTI. When I ask him about the concerns regarding an infected graft and possible surgical interventions he tells me that they're going to do more testing to look for 10% or 30% or other percentages of blockages to figure out his circulation and that he is not sure if he would do the surgery because there is risk that he could lose his leg though he also elaborates that he would want life over leg. He does speak somewhat tangentially, and is very soft-spoken and difficult to hear. Rambles and talks in circles. When I asked about his understanding of the concern regarding infectious process of graft and that he could continue to have sepsis and infection; he comments that he would "[id number] ". Is not clear that he would elect to proceed or not with surgery at this time. He appears to have some general understanding of items discussed though also does not appear to fully be able to weigh benefits/burdens and would probably be best to the supported in decision-making by appropriate proxy or surrogate. He is , has 1 child, his adult daughter whom he lives with and does wish to involve in his care. I did attempt to explore CODE STATUS with him and his thoughts regarding resuscitation--he tells me that he doesn't really need life support right now but that he does want to live. Not clear that he fully understands all that's CPR entails and the potential benefits/burdens. Discussed with primary nurse, palliative M.D., will call patient daughter. Function/Cognitive Trajectory Lives in private home with his daughter, independent with all ADLs prior to admission. (Piper Steve) Review of Systems ROS Limitations: Poor Historian (at times poor historian, easily loses focus during ROS) Constitutional: DENIES: Change in appetite, Pain, Generalized weakness Ears, nose, mouth, throat: DENIES: Oral lesions, Throat pain Respiratory: DENIES: Cough, Shortness of breath Cardiovascular: DENIES: Chest pain Gastrointestinal: DENIES: Abdominal pain, Diarrhea, Nausea, Vomiting, Difficulty Swallowing Musculoskeletal: DENIES: Joint pain, Muscle aches Neurologic: DENIES: Headache Other ROS: + Long history of "urinary retention and UTIs" for which he self catheterizes ( Piper Steve) Past Family Social History Coded Allergies: *MDRO Multi-Drug Resistant Organism (Verified Adverse Reaction, Unknown, 01/13/16) ESBL+E.Coli (urine-01/11/16) Past Medical History Hypertension Diabetes Hyperlipidemia in her Neurogenic bladder-self catheterizes ? CVA . Past Surgical History RLE Stent-placed by Dr. Mirza [facility] one year ago . Reported Medications Ranitidine (Ranitidine HCl) 150 Mg Cap 150 Mg PO DAILY Clopidogrel (Clopidogrel Bisulfate) 75 Mg Tab 75 Mg PO DAILY Losartan (Losartan Potassium) 100 Mg Tab 100 Mg PO DAILY Baclofen 20 Mg Tab 20 Mg PO TID Loratadine 10 Mg Tab 10 Mg PO DAILY Aspir-Low (Aspirin) 81 Mg Tabdr Hydrocodone-Acetaminophen 5-325 mg Tab 1 Tab PO BID PRN Tramadol (Tramadol HCl) 50 Mg Tab 50 Mg PO BID PRN Ondansetron (Ondansetron HCl) 4 Mg Tab 4 Mg PO BID Pravastatin 40 Mg Tab 40 Mg PO HS Atorvastatin (Atorvastatin Calcium) 40 Mg Tab 40 Mg PO HS [Epclusa] 400 PO DAILY Omeprazole 20 Mg Tab 20 Mg PO DAILY Losartan (Losartan Potassium) 100 Mg Tab 100 Mg PO DAILY . Current Medications Medications (Trade) Dose Ordered Sig/Smith Route Start Time Stop Time Status Last Admin (NS 1000 ml Inj) 1,000 ml @ 100 mls/hr Q10H IV 01/11/16 18:44 01/19/16 10:30 (NS Flush) 2 ml UNSCH PRN FLUSH 01/11/16 18:45 (NS Flush) 2 ml BID FLUSH 01/11/16 21:00 01/20/16 20:54 (Tylenol) 650 mg Q4H PRN PO 01/11/16 18:45 01/14/16 18:25 (Dulcolax Supp) 10 mg DAILY PRN [place] 01/11/16 18:45 (Milk Of Magnesia Liq) 30 ml Q12H PRN PO 01/11/16 18:45 (Narcan Inj) 0.4 mg UNSCH PRN IV 01/11/16 18:45 (D50w (Vial) Inj) 25 ml UNSCH PRN IV PUSH 01/11/16 19:00 (Glucagon Inj) 1 mg UNSCH PRN OTHER 01/11/16 19:00 ([place] 5-325 Mg) 1 tab Q4H PRN PO 01/11/16 19:15 01/20/16 23:52 (Morphine Inj) 2 mg Q3H PRN IV PUSH 01/11/16 19:15 (Heparin Inj) 5,000 units UNSCH PRN IV 01/12/16 01:15 Heparin Sodium (Porcine) 2500 units 2,500 units UNSCH PRN IV 01/12/16 01:15 01/12/16 02:48 (Heparin-D5W Inj) 250 ml @ 0 mls/hr TITRATE IV 01/11/16 19:15 01/21/16 01:07 Calcium Carbonate 500 mg 500 mg Q12HR CHEW 01/13/16 09:00 01/21/16 09:34 Ertapenem 1000 mg/ Sodium Chloride 100 ml @ 200 mls/hr Q24H IV 01/13/16 12:00 01/21/16 11:25 (Ancef 2 Gm Premix) 50 ml @ 100 mls/hr Q8H IV 01/14/16 14:00 01/21/16 05:43 (Lipitor) 40 mg HS PO 01/15/16 21:00 01/20/16 20:56 Amlodipine Besylate 5 mg 5 mg DAILY PO 01/15/16 09:45 01/21/16 09:33 (Lr 1000 ml Inj) 1,000 ml @ 30 mls/hr Q24H IV 01/15/16 11:00 (Rifampin) 150 mg Q12HR PO 01/15/16 13:00 01/21/16 09:33 Potassium Chloride 30 meq 30 meq Q12HR PO 01/17/16 21:00 01/21/16 09:34 (Sodium Bicarbonate 8.4% Inj/NS 1000 ml Inj) 1,100 ml @ 42 mls/hr Q24H IV 01/19/16 19:00 01/20/16 23:56 Family History Per EMR no family history of DM or CAD, Mother from unknown cancer Substance Use Tobacco: Formerly smoked 1 PPD--recently smokes a few cigarettes per day Alcohol: None Prescription med abuse: None Illicits: None . Psychosocial History Patient informs originally from [place] though has lived in [place] for many years. . Retired. Has one adult daughter whom he lives with. Has 3 grandchildren who also live with him and the daughter, school-aged. He participates in their care. Active prior to this hospitalization, enjoys golf. . 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 (Piper Steve) Living Will: Never completed Health Care Surrogate: Never completed Durable Power of Chair Post Machine Operator: Never completed Ethical and Legal Issues Patient appears to have some limited insight into conditions and options though at times seems to have fairly limited ability to weigh benefits/burdens for decision-making. His neurological status appears to wax and wane based on reports. Would recommend that he is supported in any decision-making by appropriate proxy or surrogate to ensure full understanding of associated benefits/burdens. His daughter Puja is his only child and would be appropriate proxy per [place] statutes. (Piper Steve) Physical Exam Vital Signs Date Time Temp Pulse Resp B/P Pulse Ox O2 Delivery O2 Flow Rate FiO2 01/21/16 08:00 98.2 107 16 133/88 95 01/21/16 04:00 97.6 105 18 167/92 95 01/21/16 00:52 14 01/21/16 00:05 98.1 103 18 174/99 96 01/20/16 20:59 97.1 100 20 149/86 95 01/20/16 16:00 97.1 100 20 138/89 96 01/20/16 13:52 165/85 01/20/16 12:30 97.3 100 18 179/91 95 01/20/16 01/21/16 19:00 07:00 Intake Total 430 ml Output Total 1700 ml 400 ml Balance -1270 ml -400 ml Intake Oral 0 ml IV Total 430 ml Output Urine Total 1700 ml 400 ml # Bowel Movements 1 Exam CONSTITUTIONAL/GENERAL: Frail, elderly-appearing patient in no apparent distress. TUBES/LINES/DRAINS: Peripheral IV left upper extremity, Payan catheter SKIN: No jaundice, rashes. Some areas mottling/vascular discoloration to right foot. HEAD: Atraumatic. Normocephalic. EYES: Pupils equal and round and reactive. Extraocular motions intact. No scleral icterus. No injection or drainage. Fundi not examined. ENT: Hearing grossly normal. Nose without bleeding or purulent drainage. Throat without visible erythema, exudates, masses, or lesions. CARDIOVASCULAR: Regular rate and rhythm, + murmur. Pedal pulses faint. edema right lower extremity. RESPIRATORY/CHEST: Symmetric, unlabored respirations on room air. Clear to auscultation. Breath sounds equal bilaterally. Observe frequent cough while patient eating popsicle during my exam GASTROINTESTINAL: Abdomen soft, flat, non-tender, nondistended. No hepato- splenomegaly, or palpable masses. Bowel sounds present. GENITOURINARY: Without palpable bladder distension. Payan catheter in place draining dark yellow urine. MUSCULOSKELETAL:-some edema right lower extremity, vascular mottling/ discoloration right foot. No joint tenderness or effusion noted. NEUROLOGICAL: Awake and alert. Speech is very soft, at times is somewhat garbled and difficult to understand. He is oriented times 23. Insight appears fair but limited. At times talks in circles, tangential speech. Cooperative, Follows commands. Moves all extremities. PSYCHIATRIC: No obvious anxiety/depression. no apparent hallucinations or other psychotic thought process. (Piper Steve) Diagnostic Tests Laboratory Laboratory Tests Test 01/19/16 01/20/16 01/20/16 01/20/16 07:20 06:37 14:15 22:44 Prothrombin Time 17.1 SEC 19.4 SEC (9.8-11.6) (9.8-11.6) Prothromb Time International 1.5 RATIO 1.7 RATIO Ratio Activated Partial 70.2 SEC 87.0 SEC 71.3 SEC Thromboplast Time (24.3-30.1) (24.3-30.1) (24.3-30.1) White Blood Count 23.0 TH/MM3 (4.0-11.0) Red Blood Count 3.33 MIL/MM3 (4.50-5.90) Hemoglobin 10.0 GM/DL (13.0-17.0) Hematocrit 29.8 % (39.0-51.0) Mean Corpuscular Volume 89.6 FL (80.0-100.0) Mean Corpuscular Hemoglobin 30.0 PG (27.0-34.0) Mean Corpuscular Hemoglobin 33.5 % Concent (32.0-36.0) Red Cell Distribution Width 14.0 % (11.6-17.2) Platelet Count 371 TH/MM3 (150-450) Mean Platelet Volume 8.6 FL (7.0-11.0) Neutrophils (%) (Auto) 89.4 % (16.0-70.0) Lymphocytes (%) (Auto) 6.5 % (9.0-44.0) Monocytes (%) (Auto) 3.7 % (0.0-8.0) Eosinophils (%) (Auto) 0.3 % (0.0-4.0) Basophils (%) (Auto) 0.1 % (0.0-2.0) Neutrophils # (Auto) 20.6 TH/MM3 (1.8-7.7) Lymphocytes # (Auto) 1.5 TH/MM3 (1.0-4.8) Monocytes # (Auto) 0.8 TH/MM3 (0-0.9) Eosinophils # (Auto) 0.1 TH/MM3 (0-0.4) Basophils # (Auto) 0.0 TH/MM3 (0-0.2) CBC Comment AUTO DIFF Differential Total Cells 100 Counted Neutrophils % (Manual) 90 % (16-70) Band Neutrophils % 4 % (0-6) Monocytes % 2 % (0-8) Neutrophils # (Manual) 22.5 TH/MM3 (1.8-7.7) Metamyelocytes 3 % (0-1) Myelocytes 1 % (0-0) Differential Comment FINAL DIFF MANUAL Platelet Estimate NORMAL (NORMAL) Platelet Morphology Comment NORMAL (NORMAL) Red Cell Morphology Comment NORMAL (NORMAL) Sodium Level 145 MEQ/L (136-145) Potassium Level 4.0 MEQ/L (3.5-5.1) Chloride Level 112 MEQ/L (98-107) Carbon Dioxide Level 23.9 MEQ/L (21.0-32.0) Anion Gap 9 MEQ/L (5-15) Blood Urea Nitrogen 25 MG/DL (7-18) Creatinine 1.91 MG/DL (0.60-1.30) Estimat Glomerular Filtration 35 ML/MIN (>89) Rate Random Glucose 163 MG/DL (74-106) Calcium Level 7.8 MG/DL (8.5-10.1) Test 01/21/16 05:47 Prothrombin Time 20.5 SEC (9.8-11.6) Prothromb Time International 1.8 RATIO Ratio Activated Partial 57.6 SEC Thromboplast Time (24.3-30.1) Sodium Level 146 MEQ/L (136-145) Potassium Level 3.7 MEQ/L (3.5-5.1) Chloride Level 110 MEQ/L (98-107) Carbon Dioxide Level 27.7 MEQ/L (21.0-32.0) Anion Gap 8 MEQ/L (5-15) Blood Urea Nitrogen 27 MG/DL (7-18) Creatinine 1.90 MG/DL (0.60-1.30) Estimat Glomerular Filtration 35 ML/MIN (>89) Rate Random Glucose 129 MG/DL (74-106) Calcium Level 8.0 MG/DL (8.5-10.1) (EviPiper SUSIE) Result Diagram: 01/20/16 0637 01/21/16 0547 Imaging Last Impressions Head CT 01/21/16 0000 Signed Impressions: Service Date/Time: Thursday, January 21, 2016 10:58 - CONCLUSION: 1. No acute intracranial abnormality is identified. 2. Chronic changes include mild cerebral atrophy and periventricular white matter low attenuation characteristic of chronic microvascular ischemia. Additionally, there is encephalomalacia in the right frontal lobe likely related to prior ischemia. 3. 9 mm extra-axial ossification in the right parietal high convexity may represent a calcified meningioma. Jayce Peck MD Upper Extremity Ultrasound 01/20/16 0000 Signed Impressions: Service Date/Time: Wednesday, January 20, 2016 12:05 - CONCLUSION: Venous mapping as detailed above. John Mills Jr., MD Lower Extremity Ultrasound 01/20/16 0000 Signed Impressions: Service Date/Time: Wednesday, January 20, 2016 10:14 - CONCLUSION: 1. No evidence of deep venous thrombosis. Shon Mancilla MD Lower Extremity CT 01/19/16 0000 Signed Impressions: Service Date/Time: Wednesday, January 20, 2016 08:25 - CONCLUSION: 1. Abnormal cortical thickening involving tibia and fibula. This may reflect osteomyelitis. If there is necessity for further evaluation contrast-enhanced MRI is recommended. Shon Mancilla MD Cervical Spine CT 01/15/16 0000 Signed Impressions: Service Date/Time: Friday, January 15, 2016 15:51 - CONCLUSION: No abscess observed. John Mills Jr., MD Upper Extremity CT 01/14/16 0000 Signed Impressions: Service Date/Time: Friday, January 15, 2016 16:08 - CONCLUSION: Small olecranon spur. Intact bony structures. No evidence of fluid collection or abscess formation Arian Stone MD Elbow X-Ray 01/14/16 0000 Signed Impressions: Service Date/Time: Thursday, January 14, 2016 13:05 - CONCLUSION: Possible soft tissue swelling overlying the olecranon. Otherwise negative exam Arian Stone MD Chest CT 01/14/16 0000 Signed Impressions: Service Date/Time: Thursday, January 14, 2016 15:37 - CONCLUSION: Right lower lobe interstitial change with a peripheral wedge shaped triangular area of parenchymal consolidation and associated small pleural effusion. Arian Stone MD Abdomen/Pelvis CT 01/14/16 0000 Signed Impressions: Service Date/Time: Thursday, January 14, 2016 15:37 - CONCLUSION: Urinary bladder is decompressed with Payan catheter in place. There is interstitial air in the pelvic basin around the urinary bladder with a small amount extending into the left inguinal canal and a trace amount of free fluid in the posterior pelvis. Diverticuli of the sigmoid colon appreciated Arian Stone MD Myocardial Perfusion Scan Nuc Med 01/13/16 Signed Impressions: Service Date/Time: Wednesday, January 13, 2016 10:52 - CONCLUSION: Small size, moderate severity nonreversible apical perfusion abnormality. RISK CATEGORY: Low (<1%% Annual Mortality Rate) Jayce Ham MD Shoulder X-Ray 01/12/16 0000 Signed Impressions: Service Date/Time: Tuesday, January 12, 2016 09:24 - CONCLUSION: 1. No acute fracture or subluxation of the left shoulder. 2. Probably an old fracture of the distal clavicle, healed. 3. 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 Jayce Ng MD Knee X-Ray 01/11/16 1555 Signed Impressions: Service Date/Time: Monday, January 11, 2016 16:43 - CONCLUSION: Small joint effusion. Jessica Blackburn MD Chest X-Ray 01/11/16 1555 Signed Impressions: Service Date/Time: Monday, January 11, 2016 16:40 - CONCLUSION: No acute cardiopulmonary disease. Jessica Blackburn MD Procedures 01/16 ultrasound-guided drainage of complex fluid around right femoral graft. (Piper Steve) Patient/Family Conference Present at Family Conference: pt Family Conference Time (mins): 40 Family Conference Location: Bedside Issues Discussed: Met with patient at bedside approximately 40 minutes. See history of present illness for discussion with patient. Would also plan to discuss the following with patient daughter when able to reach her: * Palliative care role, purpose, approach * Additional medical, psychosocial, and spiritual history * Patients general health, functional status, and cognitive changes in the months leading up to the current hospitalization * Patient/family understanding of the current medical problems * Patient/family understanding of prognosis * Patients goals of care as best understood from advance directives and/or conversations and/or values * Current medical treatment options and benefits/burdens of those options * Likely scenarios comparing ongoing aggressive care with a transition to comfort measures only * Questions answered to the best of my ability * Palliative care contact information provided (Piper Steve) Assessment and Plan Disease Oriented Problem List: (1) Sepsis (2) Acute on chronic renal insufficiency (3) UTI (urinary tract infection) (4) DM (diabetes mellitus) (5) Leukocytosis (6) DVT (deep venous thrombosis) (7) Heart murmur (8) Perivascular/Graft abcess (9) Emphysematous cystitis (10) Endocarditis Comment: Suspected endocarditis despite negative CHUCHO, concern for septic emboli (11) Neurogenic bladder (12) Hypokalemia Symptom Scale: (1) Encephalopathy (2) Pain Comment: Endorsed some pain on admission to lower extremities however, does not today during my exam Pertinent Non-Medical Issues Psychosocial:originally from [place] though has lived in [place] for many years. . Retired. Has one adult daughter whom he lives with. Has 3 grandchildren who also live with him and the daughter, school-aged. He participates in their care. Active prior to this hospitalization, enjoys golf. 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 His neurological status appears to wax and wane based on reports. Would recommend that he is supported in any decision-making by appropriate proxy or surrogate to ensure full understanding of associated benefits/burdens. His daughter Puja is his only child and would be appropriate proxy per [place] statutes. Ethical issues impacting care: Important Contacts Puja Bose daughter [phone] Prognosis This patient was admitted for UTI, sepsis. Subsequently has had findings of fluid accumulation, questionable abscess around old bypass graft. Recommended for urgent surgery for removal of graft. Neurological status has waxed and waned, seems to have had an underlying old stroke. Given advanced age and recent recurrent illnesses does remain high risk for further complications and setbacks. If the patient elected not to undergo aggressive interventions such as surgeries to remove graft, etc. may be appropriate for hospice and comfort measures only if goals compatible. Plan * Legal decision makerPatient appears to have some limited insight into conditions and options though at times seems to have fairly limited ability to weigh benefits/burdens for decision-making. His neurological status appears to wax and wane based on reports. Would recommend that he is supported in any decision-making by appropriate proxy or surrogate to ensure full understanding of associated benefits/burdens. His daughter Puja is his only child and would be appropriate proxy per [place] statutes. * GoalsTBD. Pending discussion with patient daughter. Appears patient's goals may be somewhat aggressive though he does not indicate to me one way or another whether he would proceed with graft removal surgery he does indicate the risks associated would be possible loss of his limp due to blood vessel issues however he is not able to further way and when I reflect that evening the graft in place could cause continued sepsis and illness resulting from that. *Plan to discuss further with patient daughter.-Call to her this afternoon, voicemail left with palliative contact information. Additionally I have left palliative contact information at bedside. * CODE STATUSfull by default, patient was unable to comment one way or another for me. * SYMPTOMS --Encephalopathy: Neuro status seems to wax and wane, history of old CVA based on imaging in prior records. While he is oriented and for the most part appropriate appears decision-making would be best supported by a healthcare surrogate or proxy. --Pain-at admission endorsed some pain to lower extremities notes are made to my exam denies any pain. has prn morphine, [place] available. Sparing requirements, will cont evaluate. * Palliative care will continue to follow during hospital course as condition evolves, to assist patient/decision-maker with understanding of medical conditions, weighing benefits/burdens of treatment options, for clarification of goals of treatment. Additionally will assist with any symptoms of palliative concern (Piper Steve) Time Spent Total Floor Time (mins): 60 Face to Face Time (mins): 40 >50% Counseling/Coord of Care: Yes (discuss with primary nurse, palliative M.D. ) (Piper Steve) Thank you for the opportunity to participate in the care of Mr. Garcia. (Piper Steve) Attestation To help prompt me to consider important information that might be impacting today's encounter and assessment, information from prior notes written by myself or my colleagues may have been "brought forward" into today's note. My signature on this note, however, is an attestation that I personally performed the exam, history, and/or decision-making noted today, and, unless otherwise indicated, the interactions with patient, family, and staff as well as the review of records all occurred today. I also attest that the listed assessment and stated plan reflect my best clinical judgment today based on the combination of historical information, prior notes, and today's exam/ interactions. When time spent is documented, it refers only to time spent today by the signer, or if indicated, combined time spent today by collaborating physician/nurse practitioner. (Piper Steve) Collaborating MD Comments 70-year-old male with recurrent sepsis, fluid collection that may represent additional infection. Regarding the question of capacity for decision-making: I sat with the patient for 30 minutes, discussing many different issues and concepts. He dosed off a couple times during our discussion, but awakened easily and would speak to me again. While the patient is oriented to month, year, and place, and can recall the names of his grandchildren and his home address, he continues to have intermittent times of lethargy and mild confusion. In my opinion, he is not able to engage in and fully process the complex discussions about his medical/ surgical problems in order to render a decision about surgery and its benefits and risks, about other forms of aggressive care, or conversely about a transition to comfort measures. He acknowledges that he has a daughter that he thinks may be able to help him in these discussions, and thus I recommend seeking "shared decision making" involving the patient in conjunction with his daughter. The patient is quite weak, and it does not seem likely that he will regain the mental clarity that would allow meaningful discernment of the multiple aspects of these problems, choices, and decisions in the near future. RECOMMENDATION: Shared decision making involving the patient and his daughter Patty Aldridge MD (Jayla Aldridge MD) Piper Steve Jan 21, 2016 12:08 Jayla Aldridge MD Jan 21, 2016 16:55
--- NOTE | 2016-01-21 12:29 | RADRPT ---
EXAM DATE/TIME: 01/19/2016 00:00 [place] COMPARISON: No previous studies available for comparison. INDICATIONS : SEVERE SEPSIS/RLE BYPASS TECHNIQUE: Five-station segmental examination of the lower extremities was performed. Pulsed-cuff waveform tracings and pressures were recorded. Ankle-brachial indices and toe-brachial indices were calculated. PRESSURES (mmHg): Brachial (arm): Right 138 Lower Thigh: Right 157 Left 183 Calf: Right 127 Left 141 Ankle: Right 52 Left 128 Toe: Right 21 Left 76 WESLEY: Right 0.38 Left 0.93 TBI: Right 0.15 Left 0.55 PULSED CUFF WAVEFORMS: Demonstrate normal amplitude bilaterally. CONCLUSION: Significant reduction of the right WESLEY with segmental pressures suggesting tibioperoneal disease. Mil d reduction of the left WESLEY with segmental pressures suggesting tibioperoneal disease. John Mills Jr., MD on January 21, 2016 at 12:26 Board Certified Radiologist. This report was verified electronically.
--- NOTE | 2016-01-21 13:08 | HHI.PR ---
Subjective Remarks Pt resting comfortably. No complaints. Objective Vital Signs Vital Signs Date Time Temp Pulse Resp B/P Pulse Ox O2 Delivery O2 Flow Rate FiO2 01/21/16 08:00 98.2 107 16 133/88 95 01/21/16 04:00 97.6 105 18 167/92 95 01/21/16 00:52 14 01/21/16 00:05 98.1 103 18 174/99 96 01/20/16 20:59 97.1 100 20 149/86 95 01/20/16 16:00 97.1 100 20 138/89 96 01/20/16 13:52 165/85 I/O 01/20/16 01/20/16 01/20/16 01/21/16 01/21/16 01/21/16 06:59 14:59 22:59 06:59 14:59 22:59 Intake Total 0 ml 430 ml Output Total 450 ml 1000 ml 1100 ml 150 ml Balance -450 ml -570 ml -1100 ml -150 ml Intake Oral 0 ml 0 ml IV Total 430 ml Output Urine Total 450 ml 1000 ml 1100 ml 150 ml # Bowel Movements 1 1 0 Result Diagram: 01/20/16 0637 01/21/16 0547 Objective Remarks Abd: soft,nt,nd Paul with some sediment Ext: Right LE edema 01/16 Abd: soft,nt,nd Paul with some sediment 01/19 Abd:soft,nt,nd Paul with clear urine 01/20 Abd:soft,nt,nd Paul with clear urine Assessment and Plan Assessment and Plan 70 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 Continue IV ABX Will perform another imaging study in 1-2 weeks. 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 01/19 70 y.o male with sepsis and atonic/neurogenic bladder with emphysematous cystitis Continue IV ABx Maintain paul catheter for now Repeat Imagining study in future 01/20 70 y.o male with sepsis and atonic/neurogenic bladder with emphysematous cystitis Maintain paul Repeat imagining study later in week Crescencio Lopez DO Jan 21, 2016 13:08
--- NOTE | 2016-01-21 14:04 | PD.ONC.PN ---
Subjective Subjective Remarks Afebrile overnight. Patient without complaint. He is resting comfortably. Objective Data Date Time Temp Pulse Resp B/P Pulse Ox O2 Delivery O2 Flow Rate FiO2 01/21/16 12:00 97.5 108 16 139/91 97 01/21/16 08:00 98.2 107 16 133/88 95 01/21/16 04:00 97.6 105 18 167/92 95 01/21/16 00:52 14 01/21/16 00:05 98.1 103 18 174/99 96 01/20/16 20:59 97.1 100 20 149/86 95 01/20/16 16:00 97.1 100 20 138/89 96 01/21/16 01/21/16 01/21/16 07:00 15:00 23:00 Output Total 150 ml Balance -150 ml Result Diagram: 01/20/16 0637 01/21/16 0547 Laboratory Results Laboratory Tests Test 01/20/16 01/20/16 01/21/16 01/21/16 14:15 22:44 05:47 10:19 Activated Partial 87.0 SEC 71.3 SEC 57.6 SEC Thromboplast Time Prothrombin Time 20.5 SEC Prothromb Time International 1.8 RATIO Ratio Sodium Level 146 MEQ/L Potassium Level 3.7 MEQ/L Chloride Level 110 MEQ/L Carbon Dioxide Level 27.7 MEQ/L Anion Gap 8 MEQ/L Blood Urea Nitrogen 27 MG/DL Creatinine 1.90 MG/DL Estimat Glomerular Filtration 35 ML/MIN Rate Random Glucose 129 MG/DL Calcium Level 8.0 MG/DL Erythrocyte Sedimentation Rate 74 mm/hr Vitamin B12 Level 1430 PG/ML Thyroid Stimulating Hormone 1.460 uIU/ML 3rd Gen Imaging Studies Last [address] 01/21/16 0000 Signed Impressions: Service Date/Time: Thursday, January 21, 2016 10:58 - CONCLUSION: 1. No acute intracranial abnormality is identified. 2. Chronic changes include mild cerebral atrophy and periventricular white matter low attenuation characteristic of chronic microvascular ischemia. Additionally, there is encephalomalacia in the right frontal lobe likely related to prior ischemia. 3. 9 mm extra-axial ossification in the right parietal high convexity may represent a calcified meningioma. Jayce Peck MD Administered Medications Medications (Trade) Dose Ordered Sig/Smith Route PRN Reason Start Time Stop Time Status Last Admin Dose Admin Sodium Chloride (NS 1000 ml Inj) 1,000 ml @ 100 mls/hr Q10H IV 01/11/16 18:44 01/19/16 10:30 IV Flush (NS Flush) 2 ml BID FLUSH 01/11/16 21:00 01/20/16 20:54 Acetaminophen (Tylenol) 650 mg Q4H PRN PO FEVER/PAIN 1-2 01/11/16 18:45 01/14/16 18:25 Acetaminophen/ Hydrocodone Bitart ([place] 5-325 Mg) 1 tab Q4H PRN PO PAIN 3-5 01/11/16 19:15 01/20/16 23:52 Heparin Sodium (Porcine) 2500 units 2,500 units UNSCH PRN IV APTT 25 TO 39 01/12/16 01:15 01/12/16 02:48 Heparin Sodium/ Dextrose (Heparin-D5W Inj) 250 ml @ 0 mls/hr TITRATE IV 01/11/16 19:15 01/21/16 01:07 Calcium Carbonate 500 mg 500 mg Q12HR CHEW 01/13/16 09:00 01/21/16 09:34 Ertapenem 1000 mg/ Sodium Chloride 100 ml @ 200 mls/hr Q24H IV 01/13/16 12:00 01/21/16 11:25 Cefazolin Sodium/ Dextrose (Ancef 2 Gm Premix) 50 ml @ 100 mls/hr Q8H IV 01/14/16 14:00 01/21/16 05:43 Atorvastatin Calcium (Lipitor) 40 mg HS PO 01/15/16 21:00 01/20/16 20:56 Amlodipine Besylate (Norvasc) 5 mg DAILY PO 01/15/16 09:45 01/21/16 09:33 Rifampin (Rifampin) 150 mg Q12HR PO 01/15/16 13:00 01/21/16 09:33 Potassium Chloride 30 meq 30 meq Q12HR PO 01/17/16 21:00 01/21/16 09:34 Sodium Bicarbonate/ Sodium Chloride (Sodium Bicarbonate 8.4% Inj/NS 1000 ml Inj) 1,100 ml @ 42 mls/hr Q24H IV 01/19/16 19:00 01/20/16 23:56 Objective Remarks GENERAL: Elderly male, sitting up in bed in nad. SKIN: Warm and dry. HEAD: Normocephalic. EYES: No injection or drainage. NECK: Supple, trachea midline. CARDIOVASCULAR: +S1/S2 RESPIRATORY: diminished at bases. anterior feng clear. GASTROINTESTINAL: Abdomen soft, non-tender, nondistended. EXTREMITIES: No cyanosis. NEUROLOGICAL: awake and alert. normal speech. Assessment/Plan Problem List: (1) DVT (deep venous thrombosis) Status: Acute Plan: 01/21/16: continue heparin drip until procedures complete History --Right lower extremity deep venous thrombosis and right upper extremity deep venous thrombosis. --likely triggered by sepsis and immobility. --was laying on the floor for several hours the day prior to presentation. --also a possibility that he had a PICC line placed on the right upper extremity during his hospital stay at [facility] a week prior to presentation. --the thrombosis appeared to be provoked. (2) Sepsis Status: Resolved Plan: --d/t UTI --on multiple antibiotics. (3) Neurogenic bladder Status: Acute Plan: --urology following. --Neurogenic bladder with recurrent urinary tract infection. --has been self-catheterizing. (4) Vascular graft infection Status: Acute Plan: --CTS following Assessment 70y/o male with newly diagnosed DVT's, admitted with urosepsis. h/o Diabetes mellitus. Hepatitis C. He was receiving treatment at [facility]. Plan 1. continue heparin drip. 2. monitor CBC Attending Statement The exam, history, and the medical decision-making described in the above note were completed with the assistance of the mid-level provider. I reviewed and agree with the findings presented. I attest that I had a [id number] encounter with the patient on the same day, and personally performed and documented my assessment and findings in the medical record. No bleeding. RLE is granulator tender. Repeat US BLE/BUE did not show residual clots. Continue heparin and start coumadin when he is done with procedure. Problem Qualifiers (1) DVT (deep venous thrombosis): Qualified Code: I82.431 - Deep vein thrombosis (DVT) of popliteal vein of right lower extremity, unspecified chronicity (2) Sepsis: Qualified Code: A41.01 - Sepsis due to Methicillin susceptible Staphylococcus aureus Rukhsana Esquivel Jan 21, 2016 14:04 Osbaldo Flowers MD Jan 21, 2016 15:35
[2016-01-21 16:00] VITALS: BP 148/89; PULSE 105; RESP 16; TEMP 97.8; O2SAT 93
[2016-01-21] MEDS: ACETAMINOPHEN/HYDROcodone 325 MG/5 MG TAB PO PRN (18:17)
[2016-01-21] MEDS: SODIUM BICARBONATE 8.4% INJ 100 MEQ in SODIUM CHLOR 0.9% 1000 ML INJ 1,000 ML IV SCH (18:17)
[2016-01-21] MEDS: SODIUM CHLOR 0.9% 1000 ML INJ 1,000 ML IV SCH (18:44)
--- NOTE | 2016-01-21 20:48 | MG ---
cc: GHAZALA BOUCHER MD Lab No: Date: 01/21/16 Age: 70 Sex: M Race: REQUESTING PHYSICIAN Dr. Giles An electroencephalogram was obtained on this 70 year old patient with a history of altered mental status. The patient is ___ awake and asleep. The tracing shows 8-9 per second activity in the center and posterior head regions. There is low amplitude beta rhythms centrally and frontally. There is some mild intermixed theta activity. The patient drowses and there is more widespread beta rhythms. Overall, the rhythms are symmetrical. Hyperventilation was not performed. Photic stimulation disclosed some mild driving response. INTERPRETATION This electroencephalogram shows very minimal slowing suggestive of very mild diffuse disturbance of cerebral function. No epileptiform features are present. Ghazala Boucher MD [facility]/ /8:42 PM /8:44 PM
[2016-01-21 21:00] VITALS: BP 131/82; PULSE 92; RESP 18; TEMP 98.2; O2SAT 94
[2016-01-21] MEDS: ATORVASTATIN 40 MG TAB PO SCH (21:54)
[2016-01-22] VITALS: BP 128/72; PULSE 91; RESP 18; TEMP 98; O2SAT 95
[2016-01-22] MEDS ORDERED: ONDANSETRON HCL 4 MG/2 ML VIAL IV PUSH PRN (00:30)
[2016-01-22] MEDS: ACETAMINOPHEN/HYDROcodone 325 MG/5 MG TAB PO PRN ×2 (00:36→09:57)
[2016-01-22 04:00] VITALS: BP 151/84; PULSE 95; RESP 18; TEMP 97.7; O2SAT 95
[2016-01-22] MEDS: ceFAZolin 2 GM PREMIX 50 ML IV SCH ×3 (05:16→23:04)
[2016-01-22] MEDS: SODIUM CHLOR 0.9% 1000 ML INJ 1,000 ML IV SCH ×2 (05:16→23:08)
[2016-01-22] MEDS: INSULIN ASPART SUPPLEMENTAL SCALE SQ SCH ×4 (05:21→23:17)
[2016-01-22] MEDS: HEPARIN-D5W INJ 250 ML IV SCH (05:40)
[2016-01-22 07:29] LABS: INTERNATIONAL NORMALIZED RATIO 2.4 RATIO; PROTHROMBIN TIME - PATIENT 27.4 SEC (9.8-11.6)
[2016-01-22 07:40] LABS: BICARBONATE 26.6 MEQ/L (21.0-32.0); POTASSIUM 3.2 MEQ/L (3.5-5.1)
--- NOTE | 2016-01-22 08:01 | PD.ONC.PN ---
Subjective Subjective Remarks No CP/SOB. No report of bleeding. Objective Data Date Time Temp Pulse Resp B/P Pulse Ox O2 Delivery O2 Flow Rate FiO2 01/22/16 04:00 97.7 95 18 151/84 95 01/22/16 00:00 98.0 91 18 128/72 95 01/21/16 21:00 98.2 92 18 131/82 94 01/21/16 16:00 97.8 105 16 148/89 93 01/21/16 12:00 97.5 108 16 139/91 97 01/21/16 08:00 98.2 107 16 133/88 95 01/22/16 01/22/16 01/22/16 06:59 14:59 22:59 Intake Total 450 ml Output Total 525 ml Balance -75 ml Result Diagram: 01/20/16 0637 01/22/16 0629 Laboratory Results Laboratory Tests Test 01/21/16 01/22/16 10:19 06:29 Erythrocyte Sedimentation Rate 74 mm/hr Vitamin B12 Level 1430 PG/ML Thyroid Stimulating Hormone 1.460 uIU/ML 3rd Gen Prothrombin Time 27.4 SEC Prothromb Time International 2.4 RATIO Ratio Activated Partial 66.0 SEC Thromboplast Time Sodium Level 144 MEQ/L Potassium Level 3.2 MEQ/L Chloride Level 108 MEQ/L Carbon Dioxide Level 26.6 MEQ/L Anion Gap 9 MEQ/L Blood Urea Nitrogen 23 MG/DL Creatinine 1.84 MG/DL Estimat Glomerular Filtration 36 ML/MIN Rate Random Glucose 191 MG/DL Calcium Level 7.6 MG/DL Administered Medications Medications (Trade) Dose Ordered Sig/Smith Route PRN Reason Start Time Stop Time Status Last Admin Dose Admin Sodium Chloride (NS 1000 ml Inj) 1,000 ml @ 100 mls/hr Q10H IV 01/11/16 18:44 01/22/16 05:16 IV Flush (NS Flush) 2 ml BID FLUSH 01/11/16 21:00 01/20/16 20:54 Acetaminophen (Tylenol) 650 mg Q4H PRN PO FEVER/PAIN 1-2 01/11/16 18:45 01/14/16 18:25 Acetaminophen/ Hydrocodone Bitart ([place] 5-325 Mg) 1 tab Q4H PRN PO PAIN 3-5 01/11/16 19:15 01/22/16 00:36 Heparin Sodium (Porcine) 2500 units 2,500 units UNSCH PRN IV APTT 25 TO 39 01/12/16 01:15 01/12/16 02:48 Heparin Sodium/ Dextrose (Heparin-D5W Inj) 250 ml @ 0 mls/hr TITRATE IV 01/11/16 19:15 01/22/16 05:40 Calcium Carbonate 500 mg 500 mg Q12HR CHEW 01/13/16 09:00 01/21/16 21:54 Ertapenem 1000 mg/ Sodium Chloride 100 ml @ 200 mls/hr Q24H IV 01/13/16 12:00 01/21/16 11:25 Cefazolin Sodium/ Dextrose (Ancef 2 Gm Premix) 50 ml @ 100 mls/hr Q8H IV 01/14/16 14:00 01/22/16 05:16 Atorvastatin Calcium (Lipitor) 40 mg HS PO 01/15/16 21:00 01/21/16 21:54 Amlodipine Besylate (Norvasc) 5 mg DAILY PO 01/15/16 09:45 01/21/16 09:33 Rifampin (Rifampin) 150 mg Q12HR PO 01/15/16 13:00 01/21/16 21:54 Potassium Chloride 30 meq 30 meq Q12HR PO 01/17/16 21:00 01/21/16 21:54 Sodium Bicarbonate/ Sodium Chloride (Sodium Bicarbonate 8.4% Inj/NS 1000 ml Inj) 1,100 ml @ 42 mls/hr Q24H IV 01/19/16 19:00 01/21/16 18:17 Objective Remarks GENERAL: Cachectic, weak SKIN: Warm and dry. HEAD: Normocephalic. EYES: No scleral icterus. No injection or drainage. NECK: Supple, trachea midline. No JVD or lymphadenopathy. LYMPHATIC: No adenopathy. CARDIOVASCULAR: Regular rate and rhythm without murmurs. RESPIRATORY: Breath sounds equal bilaterally. No accessory muscle use. GASTROINTESTINAL: Abdomen soft, non-tender, nondistended. EXTREMITIES: No cyanosis, RLE edema improved and less tender. MUSCULOSKELETAL: Adequate muscle tone. NEUROLOGICAL: No obvious focal deficit. Awake, alert, and oriented x3. Assessment/Plan Problem List: (1) DVT (deep venous thrombosis) Status: Acute Plan: 01/22/16: continue heparin drip until procedures complete. INR elevated due to vit K deficiency. History --Right lower extremity deep venous thrombosis and right upper extremity deep venous thrombosis. --likely triggered by sepsis and immobility. --was laying on the floor for several hours the day prior to presentation. --also a possibility that he had a PICC line placed on the right upper extremity during his hospital stay at [facility] a week prior to presentation. --the thrombosis appeared to be provoked. (2) Sepsis Status: Resolved Plan: --d/t UTI and vascular graft --on multiple antibiotics. (3) Neurogenic bladder Status: Acute Plan: --urology following. --Neurogenic bladder with recurrent urinary tract infection. --has been self-catheterizing. (4) Vascular graft infection Status: Acute Plan: --CTS following Assessment 70y/o male with newly diagnosed DVT's, admitted with urosepsis. h/o Diabetes mellitus. Hepatitis C. He was receiving treatment at [facility]. Plan 1. continue heparin drip. 2. monitor CBC and coags 3. Vit K 2.5mg x 1. Problem Qualifiers (1) DVT (deep venous thrombosis): Qualified Code: I82.431 - Deep vein thrombosis (DVT) of popliteal vein of right lower extremity, unspecified chronicity (2) Sepsis: Qualified Code: A41.01 - Sepsis due to Methicillin susceptible Staphylococcus aureus Osbaldo Flowers MD Jan 22, 2016 08:01
[2016-01-22] MEDS ORDERED: PHYTONADIONE 5 MG TAB PO ONE (08:15)
[2016-01-22] MEDS ORDERED: PILL SPLITTER OTHER PRN (08:15)
[2016-01-22] MEDS ORDERED: POTASSIUM CHLORIDE 10 MEQ CONTROLLED RELEASE TAB PO ONE (09:00)
[2016-01-22] MEDS: SODIUM CHLORIDE 0.9% FLUSH 5 ML FLUSH FLUSH SCH ×2 (09:00→23:00)
[2016-01-22] MEDS: CALCIUM CARBONATE 500 MG CHEWABLE TAB CHEW SCH ×2 (09:11→22:59)
[2016-01-22] MEDS: RIFAMPIN 150 MG CAP PO SCH ×2 (09:11→22:59)
[2016-01-22] MEDS: amLODIPine BESYLATE 5 MG TAB PO SCH (09:11)
[2016-01-22 09:26] LABS: MAGNESIUM 1.8 MG/DL (1.5-2.5)
[2016-01-22 09:30] VITALS: BP 149/102; PULSE 103; RESP 20; TEMP 96.8; O2SAT 95
--- NOTE | 2016-01-22 10:12 | HHI.PR ---
Subjective Remarks Pt seen and examined. No complaints. Feeling better. Objective Vital Signs Vital Signs Date Time Temp Pulse Resp B/P Pulse Ox O2 Delivery O2 Flow Rate FiO2 01/22/16 09:30 96.8 103 20 149/102 95 01/22/16 04:00 97.7 95 18 151/84 95 01/22/16 00:00 98.0 91 18 128/72 95 01/21/16 21:00 98.2 92 18 131/82 94 01/21/16 16:00 97.8 105 16 148/89 93 01/21/16 12:00 97.5 108 16 139/91 97 I/O 01/21/16 01/21/16 01/21/16 01/22/16 01/22/16 01/22/16 06:59 14:59 22:59 06:59 14:59 22:59 Intake Total 820 ml 500 ml 450 ml Output Total 3000 ml 650 ml 525 ml Balance -2180 ml -150 ml -75 ml Intake Oral 120 ml IV Total 700 ml 500 ml 450 ml Output Urine Total 3000 ml 650 ml 525 ml # Bowel Movements 0 1 Result Diagram: 01/20/16 0637 01/22/16 0629 Objective Remarks Abd: soft,nt,nd Paul with some sediment Ext: Right LE edema 01/16 Abd: soft,nt,nd Paul with some sediment 01/19 Abd:soft,nt,nd Paul with clear urine 01/20 Abd:soft,nt,nd Paul with clear urine 01/21 Abd:soft,nt,nd Paul with clear urine Assessment and Plan Assessment and Plan 70 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 Continue IV ABX Will perform another imaging study in 1-2 weeks. 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 01/19 70 y.o male with sepsis and atonic/neurogenic bladder with emphysematous cystitis Continue IV ABx Maintain paul catheter for now Repeat Imagining study in future 01/20 70 y.o male with sepsis and atonic/neurogenic bladder with emphysematous cystitis Maintain paul Repeat imagining study later in week 01/21 70 y.o male with sepsis and atonic/neurogenic bladder with emphysematous cystitis Maintain paul Plan for CT scan tomorrow to reevaluate bladder Crescencio Lopez DO Jan 22, 2016 10:12
[2016-01-22] MEDS: POTASSIUM CHLORIDE 10 MEQ CONTROLLED RELEASE TAB PO SCH (11:09)
[2016-01-22 12:00] VITALS: BP 148/85; PULSE 102; RESP 16; TEMP 98.1; O2SAT 98
--- NOTE | 2016-01-22 12:10 | HHI.HCPN ---
Reason for visit a. To assist with evaluation and management of symptoms including: Encephalopathy b. To assist medical decision maker(s) with: better understanding of current medical conditions; weighing benefits/burdens of medical treatment options; making medical treatment decisions. Subjective/Interval History Patient seen today to follow-up on goals with decision makers. Before arrival to unit to see patient I received a phone call from patient son- in-law, Mr. Bose, daughter Puja Bose , requesting update as she is unable to get here during the day as she is a teacher and works until 4 PM. I received call back /VM from her yesterday afternoon/evening and was unable to speak with her further. Update son-in-law at length, see family interaction below. Patient seen in room no visitors present. He is lethargic, sleeping. ROS negative, denies pain. When asked how he feels he states tired. He is mostly oriented, to month, year, , hospital . Has general but limited understanding of hospitalization. Asked him about his graft and possible surgery--he tells me that he "needs percentages", wants to know about the percentage and time of recovery. Advise that his recovery could have many variables, and I was unable to give him specific #s and days. Advise that it is possible he could recover, but would remain at risk for additional complications r/t age, underlying condition/health status. He says he will talk more with his family, advise the CV surgeon would be meeting with him and his family tomorrow. He tells me he wants to get some rest. Draft/pending/template . Family/friend interactions Spoke at length with son-in-law Mr. Bose today via phone. Spoke for approximately 40 minutes. Discussion included: Discussed with him at length (approximately 40 minutes) recent clinical course, current conditions, clinical assessment, treatments in place, recommendations of surgery, ID, other team members. I did explore at length with him patient overall frail condition and that he remains high risk for subsequent complications/setbacks and further decline with any type of surgical procedure , and still remains high risk from prolonged hospitalization without surgical procedures. All questions answered to the best of my ability. He expresses concerns that he and patient daughter have not really had a update from any of the medical providers other than bedside nurses. He expresses that he and patient daughter feel the patient does have ability to understand and make decisions but he expresses that no one takes enough time to talk to the patient to ensure that he understands -- reassure Mr Bose that I spoke with patient approximately 45 minutes yesterday, as did one of my physician partners, and that the medical team does feel it would be best his decision-making be supported by his daughter at this point. He expresses patient daughter does wish to proceed with surgical interventions as soon as possible if there is a chance that this will help patient survive and recover from current sepsis. Voices understanding of multiple associated risks and benefits and that patient could still experience clinical decline and even even if proceeding with invasive measures; but also expresses that the family understands that would be sooner/more certain from sepsis if they did not proceed with surgical interventions. They would like to proceed with recommended surgical interventions as soon as possible. They wish to meet with CV surgeon as soon as possible. . Advance Directives Living Will: Never completed Health Care Surrogate: Never completed Durable Power of Driver Examiner: Never completed Objective Vital Signs Date Time Temp Pulse Resp B/P Pulse Ox O2 Delivery O2 Flow Rate FiO2 01/22/16 09:30 96.8 103 20 149/102 95 01/22/16 04:00 97.7 95 18 151/84 95 01/22/16 00:00 98.0 91 18 128/72 95 01/21/16 21:00 98.2 92 18 131/82 94 01/21/16 16:00 97.8 105 16 148/89 93 01/21/16 12:00 97.5 108 16 139/91 97 Intake & Output 01/22/16 01/22/16 07:00 19:00 Intake Total 950 ml Output Total 1175 ml Balance -225 ml IV Total 950 ml Output Urine Total 1175 ml # Bowel Movements 1 Physical Exam CONSTITUTIONAL/GENERAL: Frail, elderly-appearing patient in no apparent distress. TUBES/LINES/DRAINS: Peripheral IV left upper extremity, Payan catheter CARDIOVASCULAR: Regular rate and rhythm, + murmur. Pedal pulses faint. edema right lower extremity. RESPIRATORY/CHEST: Symmetric, unlabored respirations on room air. Clear to auscultation. Breath sounds equal bilaterally. GASTROINTESTINAL: Abdomen soft, flat, non-tender, nondistended. No hepato- splenomegaly, or palpable masses. Bowel sounds present. NEUROLOGICAL: lethargic, arouses some for exam. Speech is very soft, at times is somewhat garbled and difficult to understand. He is oriented times 23. Insight appears fair but limited. At times talks in circles. Cooperative, Follows commands. Moves all extremities. PSYCHIATRIC: No obvious anxiety/depression. Diagnostic Tests Laboratory Laboratory Tests Test 01/20/16 01/20/16 01/20/16 01/21/16 06:37 14:15 22:44 05:47 White Blood Count 23.0 TH/MM3 (4.0-11.0) Red Blood Count 3.33 MIL/MM3 (4.50-5.90) Hemoglobin 10.0 GM/DL (13.0-17.0) Hematocrit 29.8 % (39.0-51.0) Mean Corpuscular Volume 89.6 FL (80.0-100.0) Mean Corpuscular Hemoglobin 30.0 PG (27.0-34.0) Mean Corpuscular Hemoglobin 33.5 % Concent (32.0-36.0) Red Cell Distribution Width 14.0 % (11.6-17.2) Platelet Count 371 TH/MM3 (150-450) Mean Platelet Volume 8.6 FL (7.0-11.0) Neutrophils (%) (Auto) 89.4 % (16.0-70.0) Lymphocytes (%) (Auto) 6.5 % (9.0-44.0) Monocytes (%) (Auto) 3.7 % (0.0-8.0) Eosinophils (%) (Auto) 0.3 % (0.0-4.0) Basophils (%) (Auto) 0.1 % (0.0-2.0) Neutrophils # (Auto) 20.6 TH/MM3 (1.8-7.7) Lymphocytes # (Auto) 1.5 TH/MM3 (1.0-4.8) Monocytes # (Auto) 0.8 TH/MM3 (0-0.9) Eosinophils # (Auto) 0.1 TH/MM3 (0-0.4) Basophils # (Auto) 0.0 TH/MM3 (0-0.2) CBC Comment AUTO DIFF Differential Total Cells 100 Counted Neutrophils % (Manual) 90 % (16-70) Band Neutrophils % 4 % (0-6) Monocytes % 2 % (0-8) Neutrophils # (Manual) 22.5 TH/MM3 (1.8-7.7) Metamyelocytes 3 % (0-1) Myelocytes 1 % (0-0) Differential Comment FINAL DIFF MANUAL Platelet Estimate NORMAL (NORMAL) Platelet Morphology Comment NORMAL (NORMAL) Red Cell Morphology Comment NORMAL (NORMAL) Prothrombin Time 19.4 SEC 20.5 SEC (9.8-11.6) (9.8-11.6) Prothromb Time International 1.7 RATIO 1.8 RATIO Ratio Sodium Level 145 MEQ/L 146 MEQ/L (136-145) (136-145) Potassium Level 4.0 MEQ/L 3.7 MEQ/L (3.5-5.1) (3.5-5.1) Chloride Level 112 MEQ/L 110 MEQ/L (98-107) (98-107) Carbon Dioxide Level 23.9 MEQ/L 27.7 MEQ/L (21.0-32.0) (21.0-32.0) Anion Gap 9 MEQ/L (5-15) 8 MEQ/L (5-15) Blood Urea Nitrogen 25 MG/DL (7-18) 27 MG/DL (7-18) Creatinine 1.91 MG/DL 1.90 MG/DL (0.60-1.30) (0.60-1.30) Estimat Glomerular Filtration 35 ML/MIN (>89) 35 ML/MIN (>89) Rate Random Glucose 163 MG/DL 129 MG/DL (74-106) (74-106) Calcium Level 7.8 MG/DL 8.0 MG/DL (8.5-10.1) (8.5-10.1) Activated Partial 87.0 SEC 71.3 SEC 57.6 SEC Thromboplast Time (24.3-30.1) (24.3-30.1) (24.3-30.1) Test 01/21/16 01/22/16 10:19 06:29 Erythrocyte Sedimentation Rate 74 mm/hr (0-20) Vitamin B12 Level 1430 PG/ML (193-986) Thyroid Stimulating Hormone 1.460 uIU/ML 3rd Gen (0.358-3.740) Prothrombin Time 27.4 SEC (9.8-11.6) Prothromb Time International 2.4 RATIO Ratio Activated Partial 66.0 SEC Thromboplast Time (24.3-30.1) Sodium Level 144 MEQ/L (136-145) Potassium Level 3.2 MEQ/L (3.5-5.1) Chloride Level 108 MEQ/L (98-107) Carbon Dioxide Level 26.6 MEQ/L (21.0-32.0) Anion Gap 9 MEQ/L (5-15) Blood Urea Nitrogen 23 MG/DL (7-18) Creatinine 1.84 MG/DL (0.60-1.30) Estimat Glomerular Filtration 36 ML/MIN (>89) Rate Random Glucose 191 MG/DL (74-106) Calcium Level 7.6 MG/DL (8.5-10.1) Magnesium Level 1.8 MG/DL (1.5-2.5) Result Diagram: 01/20/16 0637 01/22/16 0629 Imaging Last Impressions Head CT 01/21/16 0000 Signed Impressions: Service Date/Time: Thursday, January 21, 2016 10:58 - CONCLUSION: 1. No acute intracranial abnormality is identified. 2. Chronic changes include mild cerebral atrophy and periventricular white matter low attenuation characteristic of chronic microvascular ischemia. Additionally, there is encephalomalacia in the right frontal lobe likely related to prior ischemia. 3. 9 mm extra-axial ossification in the right parietal high convexity may represent a calcified meningioma. Jayce Peck MD Upper Extremity Ultrasound 01/20/16 0000 Signed Impressions: Service Date/Time: Wednesday, January 20, 2016 12:05 - CONCLUSION: Venous mapping as detailed above. John Mills Jr., MD Lower Extremity Ultrasound 01/20/16 0000 Signed Impressions: Service Date/Time: Wednesday, January 20, 2016 10:14 - CONCLUSION: 1. No evidence of deep venous thrombosis. Shon Mancilla MD Lower Extremity CT 01/19/16 0000 Signed Impressions: Service Date/Time: Wednesday, January 20, 2016 08:25 - CONCLUSION: 1. Abnormal cortical thickening involving tibia and fibula. This may reflect osteomyelitis. If there is necessity for further evaluation contrast-enhanced MRI is recommended. Shon Mancilla MD Cervical Spine CT 01/15/16 0000 Signed Impressions: Service Date/Time: Friday, January 15, 2016 15:51 - CONCLUSION: No abscess observed. John Mills Jr., MD Upper Extremity CT 01/14/16 0000 Signed Impressions: Service Date/Time: Friday, January 15, 2016 16:08 - CONCLUSION: Small olecranon spur. Intact bony structures. No evidence of fluid collection or abscess formation Arian Stone MD Elbow X-Ray 01/14/16 0000 Signed Impressions: Service Date/Time: Thursday, January 14, 2016 13:05 - CONCLUSION: Possible soft tissue swelling overlying the olecranon. Otherwise negative exam Arian Stone MD Chest CT 01/14/16 0000 Signed Impressions: Service Date/Time: Thursday, January 14, 2016 15:37 - CONCLUSION: Right lower lobe interstitial change with a peripheral wedge shaped triangular area of parenchymal consolidation and associated small pleural effusion. Arian Stone MD Abdomen/Pelvis CT 01/14/16 0000 Signed Impressions: Service Date/Time: Thursday, January 14, 2016 15:37 - CONCLUSION: Urinary bladder is decompressed with Payan catheter in place. There is interstitial air in the pelvic basin around the urinary bladder with a small amount extending into the left inguinal canal and a trace amount of free fluid in the posterior pelvis. Diverticuli of the sigmoid colon appreciated Arian Stone MD Myocardial Perfusion Scan Nuc Med 01/13/16 0000 Signed Impressions: Service Date/Time: Wednesday, January 13, 2016 10:52 - CONCLUSION: Small size, moderate severity nonreversible apical perfusion abnormality. RISK CATEGORY: Low (<1%% Annual Mortality Rate) Jayce Ham MD Shoulder X-Ray 01/12/16 0000 Signed Impressions: Service Date/Time: Tuesday, January 12, 2016 09:24 - CONCLUSION: 1. No acute fracture or subluxation of the left shoulder. 2. Probably an old fracture of the distal clavicle, healed. 3. 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 Jayce Ng MD Knee X-Ray 01/11/16 1555 Signed Impressions: Service Date/Time: Monday, January 11, 2016 16:43 - CONCLUSION: Small joint effusion. Jessica Blackburn MD Chest X-Ray 01/11/16 1555 Signed Impressions: Service Date/Time: Monday, January 11, 2016 16:40 - CONCLUSION: No acute cardiopulmonary disease. Jessica Blackburn MD Procedures 01/16 ultrasound-guided drainage of complex fluid around right femoral graft. Assessment and Plan Disease Oriented Problem List: (1) Sepsis (2) Acute on chronic renal insufficiency (3) UTI (urinary tract infection) (4) DM (diabetes mellitus) (5) Leukocytosis (6) DVT (deep venous thrombosis) (7) Heart murmur (8) Perivascular/Graft abcess (9) Emphysematous cystitis (10) Endocarditis Comment: Suspected endocarditis despite negative CHUCHO, concern for septic emboli (11) Neurogenic bladder (12) Hypokalemia Symptom Scale: (1) Encephalopathy (2) Pain Comment: Endorsed some pain on admission to lower extremities however, does not today during my exam Pertinent Non-Medical Issues Psychosocial:originally from [place] though has lived in [place] for many years. . Retired. Has one adult daughter whom he lives with. Has 3 grandchildren who also live with him and the daughter, school-aged. He participates in their care. Active prior to this hospitalization, enjoys golf. 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 His neurological status appears to wax and wane based on reports.Recommend Shared decision making involving the patient and his daughter . His daughter Puja is his only child and would be appropriate proxy per [place] statutes. Ethical issues impacting care: Important Contacts Puja Bose daughter [phone] Prognosis This patient was admitted for UTI, sepsis. Subsequently has had findings of fluid accumulation, questionable abscess around old bypass graft. Recommended for urgent surgery for removal of graft. Neurological status has waxed and waned, seems to have had an underlying old stroke. Given advanced age and recent recurrent illnesses does remain high risk for further complications and setbacks. If the patient elected not to undergo aggressive interventions such as surgeries to remove graft, etc. may be appropriate for hospice and comfort measures only if goals compatible. Plan * Legal decision makerPatient appears to have some limited insight into conditions and options though at times seems to have fairly limited ability to weigh benefits/burdens for decision-making. His neurological status appears to wax and wane based on reports. Would recommend Shared decision making involving the patient and his daughter in any decision-making to ensure full understanding of associated benefits/burdens. His daughter Puja is his only child and would be appropriate proxy per [place] statutes. * Goals 01/22/16: I left voicemail for daughter yesterday, she did call back later in the evening however I was unable to speak to her at that time. Earlier today her (son in law) Mr Bose did call me per her request as she is a schoolteacher and at school teaching until 4 PM. Discussed with him at length (approximately 40 minutes) recent clinical course, current conditions, clinical assessment, treatments in place, recommendations of surgery , ID, other team members. Goals are aggressive--- they wish to proceed with graft removal surgery as recommended by CV surgery. Daughter Mrs. Bose, son- in-law wish to meet with surgeon as soon as possible as they wish to discuss surgery specifics risks etc. with the surgeon directly They would like to do this between 5 PM and 8 PM today or early tomorrow morning if possible. I advised that I did not know surgeons current schedule and I could not be certain when he would be available that I would reach out to surgeon to advise of requests for meeting. 1130 shortly after this I received an additional call back from requesting a meeting with surgeon "right now ", or some time today, in order to proceed w discussion and surgery DEZ. I have at this point placed a call in message to surgery service though I am awaiting a call back. I have also left to update medical attending, updated ID. UPDATE 01/22/16 1400 ---->>> Spoke with CV surgery Dr Stubbs; review w/ him my discussion w pt, family. He will plan to meet with pt and family after 4pm tomorrow 01/23/16 in patient's room, immediately following completion of a scheduled surgery. Notified son in law, they will be here by 4:30pm. * CODE STATUSfull by default, patient was unable to comment one way or another for me. Was unable to discuss with Mr Bose today. * SYMPTOMS --Encephalopathy: Neuro status seems to wax and wane, history of old CVA based on imaging in prior records. While he is oriented and for the most part appropriate appears decision-making would be best supported by a healthcare surrogate or proxy. --Pain-at admission endorsed some pain to lower extremities notes are made to my exam denies any pain. has prn morphine, [place] available. Sparing requirements, will cont evaluate. * Palliative care will continue to follow during hospital course as condition evolves, to assist patient/decision-maker with understanding of medical conditions, weighing benefits/burdens of treatment options, for clarification of goals of treatment. Additionally will assist with any symptoms of palliative concern Time Spent Total Floor Time (mins): 45 >50% Counseling/Coord of Care: Yes (discussed with attending, ID, CV surgery, RN) Attestation To help prompt me to consider important information that might be impacting today's encounter and assessment, information from prior notes written by myself or my colleagues may have been "brought forward" into today's note. My signature on this note, however, is an attestation that I personally performed the exam, history, and/or decision-making noted today, and, unless otherwise indicated, the interactions with patient, family, and staff as well as the review of records all occurred today. I also attest that the listed assessment and stated plan reflect my best clinical judgment today based on the combination of historical information, prior notes, and today's exam/ interactions. When time spent is documented, it refers only to time spent today by the signer, or if indicated, combined time spent today by collaborating physician/nurse practitioner. Piper Steve Jan 22, 2016 12:10
[2016-01-22] MEDS: ERTAPENEM INJ 1,000 MG in SODIUM CHLORIDE 0.9% INJ 100 ML IV SCH (13:03)
--- NOTE | 2016-01-22 13:44 | HHI.IDPN ---
Subjective Subjective Remarks is a 70 y/o CM with PMHx of HTN, DM, Hyperlipidemia and Neurogenic Bladder w/ Self Catheterization who was brought to the ER by EMS for c/o fever and elevated BS of 500 at home. Admitted with sepsis, now being evaluated and managed for MSSA bacteremia unclear source, ESBL and MSSA UTI in a patient that self caths at home. Overnight events reviewed. No fevers. UO ok No rash No diarrhea Is scared to let anyone touch his feet in anticipation of pain in his feet. Antibiotics Ancef IV Ertapenem IV Rifampin oral Lines Line sites with no e/o infection. Past Medical History reviewed. Allergies: Coded Allergies: *MDRO Multi-Drug Resistant Organism (Verified Adverse Reaction, Unknown, 01/13/16) ESBL+E.Coli (urine-01/11/16) Objective . Vital Signs Date Time Temp Pulse Resp B/P Pulse Ox O2 Delivery O2 Flow Rate FiO2 01/22/16 12:00 98.1 102 16 148/85 98 01/22/16 09:30 96.8 103 20 149/102 95 01/22/16 04:00 97.7 95 18 151/84 95 01/22/16 00:00 98.0 91 18 128/72 95 01/21/16 21:00 98.2 92 18 131/82 94 01/21/16 16:00 97.8 105 16 148/89 93 01/21/16 01/21/16 01/22/16 15:00 23:00 07:00 Intake Total 820 ml 500 ml 450 ml Output Total 2000 ml 650 ml 525 ml Balance -1180 ml -150 ml -75 ml Intake Oral 120 ml IV Total 700 ml 500 ml 450 ml Output Urine Total 2000 ml 650 ml 525 ml # Bowel Movements 0 1 . Laboratory Tests Test 01/21/16 10:19 Erythrocyte Sedimentation Rate 74 mm/hr Laboratory Tests Test 01/21/16 01/21/16 01/22/16 05:47 10:19 06:29 Sodium Level 146 MEQ/L 144 MEQ/L Potassium Level 3.7 MEQ/L 3.2 MEQ/L Chloride Level 110 MEQ/L 108 MEQ/L Carbon Dioxide Level 27.7 MEQ/L 26.6 MEQ/L Anion Gap 8 MEQ/L 9 MEQ/L Blood Urea Nitrogen 27 MG/DL 23 MG/DL Creatinine 1.90 MG/DL 1.84 MG/DL Estimat Glomerular Filtration 35 ML/MIN 36 ML/MIN Rate Random Glucose 129 MG/DL 191 MG/DL Calcium Level 8.0 MG/DL 7.6 MG/DL Vitamin B12 Level 1430 PG/ML Thyroid Stimulating Hormone 1.460 uIU/ML 3rd Gen Magnesium Level 1.8 MG/DL Imaging Last Impressions Myocardial Perfusion Scan Nuc Med 01/13/16 0000 Signed Impressions: Service Date/Time: Wednesday, January 13, 2016 10:52 - CONCLUSION: Small size, moderate severity nonreversible apical perfusion abnormality. RISK CATEGORY: Low (<1%% Annual Mortality Rate) Jayce Ham MD Shoulder X-Ray 01/12/16 0000 Signed Impressions: Service Date/Time: Tuesday, January 12, 2016 09:24 - CONCLUSION: 1. No acute fracture or subluxation of the left shoulder. 2. Probably an old fracture of the distal clavicle, healed. 3. 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 Jayce Ng MD Lower Extremity Ultrasound 01/11/16 1600 Signed Impressions: Service Date/Time: Monday, January 11, 2016 17:13 - CONCLUSION: 1. Nonocclusive thrombus in the popliteal vein and peroneal tributary. More central venous system is sonographically normal. 2. Tube like graft/stent in the right groin region with a surrounding hypoechoic region which does not show color Doppler flow. Diagnostic considerations include a thrombosed aneurysm treated with a covered stent/graft versus fluid around the regional vasculature. The latter would be concerning for possible perivascular infection. If patient's symptomatology is characteristic of an infectious or inflammatory process, CTA of the pelvis would be recommended for further characterization.. Carroll Arteaga MD Knee X-Ray 01/11/16 1555 Signed Impressions: Service Date/Time: Monday, January 11, 2016 16:43 - CONCLUSION: Small joint effusion. Jessica Blackburn MD Chest X-Ray 01/11/16 1555 Signed Impressions: Service Date/Time: Monday, January 11, 2016 16:40 - CONCLUSION: No acute cardiopulmonary disease. Jessica Blackburn MD Physical Exam GENERAL: Thin built, Under nourished, well developed patient, in no apparent distress. SKIN: No rashes. HEAD: Atraumatic. Normocephalic. No temporal or scalp tenderness. EYES: Pupils equal round and reactive. Extraocular motions intact. No scleral icterus. No injection or drainage. ENT: Nose without bleeding, purulent drainage or septal hematoma. Throat without erythema, tonsillar hypertrophy or exudate. Uvula midline. Airway patent. NECK: Trachea midline. Supple, nontender, no meningeal signs. CARDIOVASCULAR: RRR, murmur. RESPIRATORY: Clear to auscultation. Breath sounds equal bilaterally. GASTROINTESTINAL: Abdomen soft, tenderness noted in Suprapubic region. MUSCULOSKELETAL: RLE with significant swelling noted. Tender to touch. Slight erythema. Right foot plantar aspect with multiple septic emboli noted. NEUROLOGICAL: Awake and alert. Responds to questions but sluggish. Psych: cooperative IV line sites with no e.o infection Assessment & Plan Remarks Sepsis present on admission (patient was on antibiotics prior to admission ?). Fever, elevated WBC and bacteremia as source. MSSA bacteremia, endocarditis: ? 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 MSSA and ESBL E.coli UTI and Emphysematous Cystitis: Patient self catheterizes at home. Neurogenic bladder. Pneumonia Persistent bacteremia: likely source infected aneurysm seeding as organisms match. Acute metabolic encephalopathy: likely sepsis related improving. Acute renal failure: ? sepsis related, baseline not known. DM uncontrolled on admission. DVT Right LE Recent admission at [facility] as risk factor for infection. Recs Continue Ancef IV q8 hrs equivalent renal dose adjusted. Continue Ertapenem IV (ASP criteria: ESBL UTI/emphysematous cystitis present on admission in a patient that self catheterizes at home) Continue Rifampin oral (has a graft material in thigh) for now. Reviewed OSH records was treated with Ceftriaxone IV for UTI. Urine cultures with normal consuelo. No workup for infected aneurysm and no blood cultures found. CT C/A/P: septic emboli, Emphysematous cystitis. Reviewed past and current images with Urology. Emphysematous changes appear increased compared to a year back. ? recurrent or chronic infections related. Also noted inguinal and pelvic basin free air. recommends continuing ABX at this time and re-image in 7-10 days during this hospitalization. CHUCHO negative but has evidence of septic emboli (likely showered all emboli to periphery) Suspect the RLE septic emboli are from right infected graft/aneurysm. d/w palliative care: patients family would like to meet with surgeon prior to surgery but would like to proceed with surgery. Follow clinically. d/w patient and RN. d/w clinical pharmacist. Anali Beaver MD Jan 22, 2016 13:44
[2016-01-22 14:22] LABS: ANA SCREEN NEG (NEG)
[2016-01-22 16:00] VITALS: BP 170/91; PULSE 101; RESP 18; TEMP 98.1; O2SAT 94
[2016-01-22] MEDS ORDERED: hydrALAZINE HCL 20 MG/ML VIAL IV PUSH PRN (16:00)
[2016-01-22 21:15] VITALS: BP 159/97; PULSE 101; RESP 18; TEMP 98.3; O2SAT 95
[2016-01-22] MEDS: ATORVASTATIN 40 MG TAB PO SCH (22:59)
[2016-01-22] MEDS: LACTATED RINGER'S 1000 ML IV SCH (23:00)
--- NOTE | 2016-01-22 23:52 | HHI.PR ---
Subjective Remarks patient seen this morning around 10. Denies any pain. slow speech. Difficult to understand. Objective Vital Signs Date Time Temp Pulse Resp B/P Pulse Ox O2 Delivery O2 Flow Rate FiO2 01/22/16 21:15 98.3 101 18 159/97 95 01/22/16 16:00 98.1 101 18 170/91 94 01/22/16 12:00 98.1 102 16 148/85 98 01/22/16 09:30 96.8 103 20 149/102 95 01/22/16 04:00 97.7 95 18 151/84 95 01/22/16 00:00 98.0 91 18 128/72 95 I/O 01/21/16 01/21/16 01/21/16 01/22/16 01/22/16 01/22/16 06:59 14:59 22:59 06:59 14:59 22:59 Intake Total 820 ml 500 ml 450 ml 576 ml Output Total 3000 ml 650 ml 525 ml 900 ml Balance -2180 ml -150 ml -75 ml -324 ml Intake Oral 120 ml IV Total 700 ml 500 ml 450 ml 576 ml Output Urine Total 3000 ml 650 ml 525 ml 900 ml # Bowel Movements 0 1 Result Diagram: 01/20/16 0637 01/22/16 0629 Objective Remarks GENERAL: been 70-year-old male. Lying in bed. No acute distress. SKIN: Warm and dry. HEAD: Normocephalic. EYES: No scleral icterus. No injection or drainage. NECK: Supple, trachea midline. No JVD or lymphadenopathy. CARDIOVASCULAR: Regular rate and rhythm without murmurs, gallops, or rubs. RESPIRATORY: Breath sounds equal bilaterally. No accessory muscle use. GASTROINTESTINAL: Abdomen soft, non-tender, nondistended. MUSCULOSKELETAL: No cyanosis. trace right lower extremity edema. BACK: Nontender without obvious deformity. No CVA tenderness. A/P Assessment and Plan // Sepsis, persistent MSSA bacteremia, suspected endocarditis despite negative CHUCHO, also with infected right fem pop myra. Has fem pop graft in RLE with surrounding fluid which is definitely infected, status post aspiration with interventional radiology, with MSSA in culture. The patient declined surgery by Dr. Fairchild and requested transfer to [facility] to be seen by Dr. Mirza who initially put the graft in less than a year ago. I discussed the patient with Dr. Mirza on 01/16 who agreed to accept the patient but he also felt it would be acceptable for the patient to be treated by vascular surgery here. - Dr. Alvarenga on consult for second opinion and has offered surgery, patient now stating he would like to stay at [place] for surgery, however surgery on hold as there is now a question of patient's capacity as his mental status waxes and wanes as well as family's understanding of risks/benefits of proceeding with surgery, as patient has multiple other underlying serious infections and is clearly high risk for surgery. -Palliative care following to help facilitate goals of care and family communication. - Appreciate vascular surgery assistance -Cont IV antibiotics/cefazolin as per Dr. Lee Beaver. //Severe emphysematous UTI (recurrent or worsening as compared to previous CT done 09/2014) - with air in the extraperitoneal pelvis suggestive of possible developing fistula or bladder perforation. Urine cx growing E. Coli ESBL and staph aureus. -Plan is to continue paul and antibiotics for some weeks and repeat CT in 2 weeks as usually extraperitoneal bladder perforation will heal on their own. -The patient is on ertapenem start date 01/12 for this infection. - Appreciate infectious disease and urology assistance. // Acute metabolic encephalopathy //Hospital delirium - improving at times, however patient's daughter states he is nowhere near baseline. Will proceed with neuro workup, including head CT, labs, EEG, will consult neurology for opinon. Rule out stroke/septic emboli. improving with treatment of underlying medical illnesses. Cont ST. // Severe, persistent hypokalemia - replaced again today., continue repletion 30 meq Po BID. repeat BMP in a.m. //Chronic urinary retention possibly due to neurogenic bladder - self catheterizes at home. Continue paul as per urology. - Appreciate urology assistance. //Acute on Chronic kidney injury: Creatinine 3.55 on admission, improved now down to 1.8. on IVF. // Rhabdomyolysis - resolved. PT/OT following. OT does recommend inpatient rehab. //Elevated Trop: Trop 0.07, EKG w/ no acute changes. Likely secondary to worsening renal function. ECHO which showed EF 55-60%. stress test showed " Small size, moderate severity nonreversible apical perfusion abnormality, low risk". Appreciate cardiology input. // DM type 2: Uncontrolled. -Hgb A1c 8.0. - Relatively well controlled in hospital. -Continue sliding scale w/ Accu-Cheks. Consider starting basal insulin. // DVT of right upper popliteal and peroneal tributary, and of right upper extremity in the brachial vein. -Continue heparin drip until able to bridge to coumadin. -Will need at least 3 months AC for provoked DVT, appreciate hematology input. // Left elbow swelling: Orthopedic evaluated pt, CT elbow negative for effusion or abscess. Appreciate assistance. Discharge Planning patient lives at home with his daughter. -Physical therapy recommends rehabilitation. -Appreciate case management assistance. Carlos Bustillo MD Jan 22, 2016 23:52
[2016-01-23 01:15] VITALS: BP 142/86; PULSE 98; RESP 18; TEMP 98.7; O2SAT 95
[2016-01-23] MEDS: SODIUM BICARBONATE 8.4% INJ 100 MEQ in SODIUM CHLOR 0.9% 1000 ML INJ 1,000 ML IV SCH (02:09)
[2016-01-23 05:15] VITALS: BP 135/86; PULSE 103; RESP 18; TEMP 98; O2SAT 94
[2016-01-23] MEDS: ceFAZolin 2 GM PREMIX 50 ML IV SCH ×3 (05:56→22:15)
[2016-01-23] MEDS: INSULIN ASPART SUPPLEMENTAL SCALE SQ SCH ×4 (06:03→20:09)
[2016-01-23 07:43] LABS: HEMATOCRIT 29.6 % (39.0-51.0); MEAN CELL VOLUME 89.8 FL (80.0-100.0); MEAN CORPUSCULAR HEMOGLOBIN 30.3 PG (27.0-34.0); MEAN CORPUSCULAR HGB CONC 33.7 % (32.0-36.0); PLATELET COUNT 314 TH/MM3 (150-450); RED BLOOD COUNT 3.29 MIL/MM3 (4.50-5.90); RED CELL DISTRIBUTION WIDTH 14.8 % (11.6-17.2); REVIEW FLAG FINAL; WHITE BLOOD COUNT 14.4 TH/MM3 (4.0-11.0)
[2016-01-23 07:56] LABS: INTERNATIONAL NORMALIZED RATIO 1.3 RATIO
[2016-01-23 08:00] VITALS: BP 158/87; PULSE 100; RESP 20; TEMP 98.1; O2SAT 97
[2016-01-23 08:03] LABS: BICARBONATE 28.6 MEQ/L (21.0-32.0); POTASSIUM 3.4 MEQ/L (3.5-5.1)
--- NOTE | 2016-01-23 08:05 | PD.ONC.PN ---
Subjective Subjective Remarks Still weak, no report of bleeding. Objective Data Date Time Temp Pulse Resp B/P Pulse Ox O2 Delivery O2 Flow Rate FiO2 01/23/16 05:15 98.0 103 18 135/86 94 01/23/16 01:15 98.7 98 18 142/86 95 01/22/16 21:15 98.3 101 18 159/97 95 01/22/16 16:00 98.1 101 18 170/91 94 01/22/16 12:00 98.1 102 16 148/85 98 01/22/16 09:30 96.8 103 20 149/102 95 01/23/16 01/23/16 01/23/16 07:00 15:00 23:00 Intake Total 456 ml Output Total 950 ml Balance -494 ml Result Diagram: 01/23/16 0639 01/22/16 0629 Laboratory Results Laboratory Tests Test 01/23/16 06:39 White Blood Count 14.4 TH/MM3 Red Blood Count 3.29 MIL/MM3 Hemoglobin 10.0 GM/DL Hematocrit 29.6 % Mean Corpuscular Volume 89.8 FL Mean Corpuscular Hemoglobin 30.3 PG Mean Corpuscular Hemoglobin 33.7 % Concent Red Cell Distribution Width 14.8 % Platelet Count 314 TH/MM3 Mean Platelet Volume 8.3 FL Administered Medications Medications (Trade) Dose Ordered Sig/Smith Route PRN Reason Start Time Stop Time Status Last Admin Dose Admin Sodium Chloride (NS 1000 ml Inj) 1,000 ml @ 100 mls/hr Q10H IV 01/11/16 18:44 01/22/16 05:16 IV Flush (NS Flush) 2 ml BID FLUSH 01/11/16 21:00 01/20/16 20:54 Acetaminophen (Tylenol) 650 mg Q4H PRN PO FEVER/PAIN 1-2 01/11/16 18:45 01/14/16 18:25 Acetaminophen/ Hydrocodone Bitart ([place] 5-325 Mg) 1 tab Q4H PRN PO PAIN 3-5 01/11/16 19:15 01/22/16 09:57 Heparin Sodium (Porcine) 2500 units 2,500 units UNSCH PRN IV APTT 25 TO 39 01/12/16 01:15 01/12/16 02:48 Heparin Sodium/ Dextrose (Heparin-D5W Inj) 250 ml @ 0 mls/hr TITRATE IV 01/11/16 19:15 01/22/16 05:40 Calcium Carbonate 500 mg 500 mg Q12HR CHEW 01/13/16 09:00 01/22/16 22:59 Ertapenem 1000 mg/ Sodium Chloride 100 ml @ 200 mls/hr Q24H IV 01/13/16 12:00 01/22/16 13:03 Cefazolin Sodium/ Dextrose (Ancef 2 Gm Premix) 50 ml @ 100 mls/hr Q8H IV 01/14/16 14:00 01/23/16 05:56 Atorvastatin Calcium (Lipitor) 40 mg HS PO 01/15/16 21:00 01/22/16 22:59 Amlodipine Besylate (Norvasc) 5 mg DAILY PO 01/15/16 09:45 01/22/16 09:11 Rifampin 150 mg 150 mg Q12HR PO 01/15/16 13:00 01/22/16 22:59 Sodium Bicarbonate/ Sodium Chloride (Sodium Bicarbonate 8.4% Inj/NS 1000 ml Inj) 1,100 ml @ 42 mls/hr Q24H IV 01/19/16 19:00 01/23/16 02:09 Objective Remarks GENERAL: Cachectic, weak SKIN: Warm and dry. HEAD: Normocephalic. EYES: No scleral icterus. No injection or drainage. NECK: Supple, trachea midline. No JVD or lymphadenopathy. LYMPHATIC: No adenopathy. CARDIOVASCULAR: Regular rate and rhythm without murmurs. RESPIRATORY: Breath sounds equal bilaterally. No accessory muscle use. GASTROINTESTINAL: Abdomen soft, non-tender, nondistended. EXTREMITIES: No cyanosis, or edema. Not tender. MUSCULOSKELETAL: Adequate muscle tone. NEUROLOGICAL: No obvious focal deficit. Awake, alert, and oriented x3. Assessment/Plan Problem List: (1) DVT (deep venous thrombosis) Status: Acute Plan: 01/23/16: continue heparin drip until procedures complete. INR elevated due to vit K deficiency. Had low dose Vit K x1, repeat INR pending. History --Right lower extremity deep venous thrombosis and right upper extremity deep venous thrombosis. --likely triggered by sepsis and immobility. --was laying on the floor for several hours the day prior to presentation. --also a possibility that he had a PICC line placed on the right upper extremity during his hospital stay at [facility] a week prior to presentation. --the thrombosis appeared to be provoked. (2) Sepsis Status: Resolved Plan: --d/t UTI and vascular graft --on multiple antibiotics. (3) Neurogenic bladder Status: Acute Plan: --urology following. --Neurogenic bladder with recurrent urinary tract infection. --has been self-catheterizing. (4) Vascular graft infection Status: Acute Plan: --CTS following Assessment 70y/o male with newly diagnosed DVT's, admitted with urosepsis. h/o Diabetes mellitus. Hepatitis C. He was receiving treatment at [facility]. Plan 1. continue heparin drip. 2. monitor CBC and coags 3. May need more Vit K if INR still elevated. Problem Qualifiers (1) DVT (deep venous thrombosis): Qualified Code: I82.431 - Deep vein thrombosis (DVT) of popliteal vein of right lower extremity, unspecified chronicity (2) Sepsis: Qualified Code: A41.01 - Sepsis due to Methicillin susceptible Staphylococcus aureus Osbaldo Flowers MD Jan 23, 2016 08:05
[2016-01-23] MEDS ORDERED: POTASSIUM CHLORIDE 20 MEQ CONTROLLED RELEASE TAB PO ONE (09:15)
[2016-01-23] MEDS: POTASSIUM CHLORIDE 10 MEQ CONTROLLED RELEASE TAB PO SCH ×2 (10:51→22:15)
[2016-01-23] MEDS: CALCIUM CARBONATE 500 MG CHEWABLE TAB CHEW SCH ×2 (10:51→20:09)
[2016-01-23] MEDS: ERTAPENEM INJ 1,000 MG in SODIUM CHLORIDE 0.9% INJ 100 ML IV SCH (10:51)
[2016-01-23] MEDS: amLODIPine BESYLATE 5 MG TAB PO SCH (10:51)
[2016-01-23] MEDS: RIFAMPIN 150 MG CAP PO SCH ×2 (10:51→20:10)
[2016-01-23] MEDS: SODIUM CHLORIDE 0.9% FLUSH 5 ML FLUSH FLUSH SCH ×2 (10:52→20:10)
[2016-01-23] MEDS: LACTATED RINGER'S 1000 ML IV SCH (11:00)
[2016-01-23] MEDS: ACETAMINOPHEN/HYDROcodone 325 MG/5 MG TAB PO PRN ×2 (11:05→20:11)
[2016-01-23 12:00] VITALS: BP 160/76; PULSE 96; RESP 20; TEMP 98.2; O2SAT 97
--- NOTE | 2016-01-23 13:01 | HHI.PR ---
Subjective Remarks Patient seen today around noon. Sleeping, wakes up for exam. Reports pain is controlled. No nausea or vomiting. Objective Vital Signs Date Time Temp Pulse Resp B/P Pulse Ox O2 Delivery O2 Flow Rate FiO2 01/23/16 08:00 98.1 100 20 158/87 97 01/23/16 05:15 98.0 103 18 135/86 94 01/23/16 01:15 98.7 98 18 142/86 95 01/22/16 21:15 98.3 101 18 159/97 95 01/22/16 16:00 98.1 101 18 170/91 94 I/O 01/22/16 01/22/16 01/22/16 01/23/16 01/23/16 01/23/16 06:59 14:59 22:59 06:59 14:59 22:59 Intake Total 450 ml 1646 ml 456 ml Output Total 525 ml 900 ml 950 ml Balance -75 ml 746 ml -494 ml Intake Oral 720 ml 120 ml IV Total 450 ml 926 ml 336 ml Output Urine Total 525 ml 900 ml 950 ml # Bowel Movements 1 Result Diagram: 01/23/16 0639 01/23/16 0639 Objective Remarks GENERAL: Thin 70-year-old male. Lying in bed. No acute distress. SKIN: Warm and dry. HEAD: Normocephalic. EYES: No scleral icterus. No injection or drainage. NECK: Supple, trachea midline. No JVD or lymphadenopathy. CARDIOVASCULAR: Regular rate and rhythm without murmurs, gallops, or rubs. RESPIRATORY: Breath sounds equal bilaterally. No accessory muscle use. GASTROINTESTINAL: Abdomen soft, non-tender, nondistended. MUSCULOSKELETAL: No cyanosis. trace right lower extremity edema. Patient has multiple non-confluent subcentimeter nonblanching purpuric macules on the plantar surface of the right foot as before. BACK: Nontender without obvious deformity. No CVA tenderness. A/P Assessment and Plan 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 - Dr. Alvarenga on consult for second opinion and has offered surgery, patient now stating he would like to stay at [place] for surgery, however surgery on hold as there is now a question of patient's capacity as his mental status waxes and wanes as well as family's understanding of risks/benefits of proceeding with surgery, as patient has multiple other underlying serious infections and is clearly high risk for surgery. -Palliative care following to help facilitate goals of care and family communication. - Appreciate vascular surgery assistance -Cont rifampin and IV antibiotics/cefazolin as per Dr. Lee Beaver. //Severe emphysematous UTI (recurrent or worsening as compared to previous CT done 09/2014) - with air in the extraperitoneal pelvis suggestive of possible developing fistula or bladder perforation. Urine cx growing E. Coli ESBL and staph aureus. -Plan is to continue paul and antibiotics for some weeks and repeat CT in 2 weeks as usually extraperitoneal bladder perforation will heal on their own. -The patient is on ertapenem start date 01/12 for this infection. - Appreciate infectious disease and urology assistance. Continue antibiotics as per infectious disease. // Acute metabolic encephalopathy //Hospital delirium - improving at times, however patient's daughter states he is nowhere near baseline.\\ -CT head 01/20 with no acute intracranial abnormality -Altered mental status most certainly secondary to systemic infection. No indication of meningitis or septic embolic stroke - improving with treatment of underlying medical illnesses. Cont ST. continue to monitor mental status. // Severe, persistent hypokalemia - replaced again today 01/22 continue repletion 30 meq Po BID. repeat BMP in a.m. //Chronic urinary retention possibly due to neurogenic bladder - self catheterizes at home. Continue paul as per urology. - Appreciate urology assistance. //Acute on Chronic kidney injury: Creatinine 3.55 on admission, improved now down to 1.8. on IVF. // Rhabdomyolysis - resolved. PT/OT following. OT does recommend inpatient rehab. //Elevated Trop: Trop 0.07, EKG w/ no acute changes. Likely secondary to worsening renal function. ECHO which showed EF 55-60%. stress test showed " Small size, moderate severity nonreversible apical perfusion abnormality, low risk". Appreciate cardiology input. // DM type 2: Uncontrolled. -Hgb A1c 8.0. - Relatively well controlled in hospital. -Continue sliding scale w/ Accu-Cheks. Consider starting basal insulin. // DVT of right upper popliteal and peroneal tributary, and of right upper extremity in the brachial vein. -Continue heparin drip until able to bridge to coumadin. -Will need at least 3 months AC for provoked DVT, appreciate hematology input. // Left elbow swelling: Orthopedic evaluated pt, CT elbow negative for effusion or abscess. Appreciate assistance. //DVT prophylaxis. Patient is on therapeutic treatment for DVT. Discharge Planning patient lives at home with his daughter. -Physical therapy recommends rehabilitation. -Appreciate case management assistance. Carlos Bustillo MD Jan 23, 2016 13:01
[2016-01-23] MEDS: HEPARIN-D5W INJ 250 ML IV SCH (14:04)
[2016-01-23 16:00] VITALS: BP 155/90; PULSE 104; RESP 22; TEMP 98.8; O2SAT 99
--- NOTE | 2016-01-23 16:04 | RADRPT ---
EXAM DATE/TIME: 01/23/2016 09:35 [facility] COMPARISON: CT ABDOMEN & PELVIS W/O CONTRAST, January 14, 2016, 15:37. INDICATIONS : Emphysematous cystitis. ORAL CONTRAST: No oral contrast ingested. RADIATION DOSE: 5.99 CTDIvol (mGy) MEDICAL HISTORY : Cardiovascular disease. SURGICAL HISTORY : None. ENCOUNTER: Initial ACUITY: 1 day PAIN SCALE: 7/10 LOCATION: Bilateral abdomen TECHNIQUE: Volumetric scanning of the abdomen and pelvis was performed. Using automated exposure control and ad justment of the mA and/or kV according to patient size, radiation dose was kept as low as reasonably achievable to obtain optimal diagnostic quality images. FINDINGS: Small bilateral pleural effusions are identified. There is subsegmental atelectasis in the right base . The liver and spleen are normal in size and no focal defects are identified. The gallbladder is abs ent. The pancreas demonstrates normal contour without evidence of mass or ductal dilatation. The adre nal glands and kidneys appear normal bilaterally. No hydronephrosis or mass lesions are identified. P rominent vascular calcification is present. Emphysematous cystitis persists. No free fluid is identified. There is no evidence of abscess. A Fole y catheter is present within the bladder which does not allow for evaluation.There is diverticulosis without evidence of diverticulitis. No abnormally enlarged lymph nodes are identified. CONCLUSION: 1. 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 2. Diverticulosis without evidence of diverticulitis. 3. Small bilateral effusions Shon Mancilla MD on January 23, 2016 at 15:04 Board Certified Radiologist. This report was verified electronically.
--- NOTE | 2016-01-23 17:56 | PD.CAR.PN ---
CVT Progress Note Subjective/Hospital Course: Pt more alert today, still very debilitated but much more interactive Tolerating some diet Objective: Vital Signs Date Time Temp Pulse Resp B/P Pulse Ox O2 Delivery O2 Flow Rate FiO2 01/23/16 16:00 98.8 104 22 155/90 99 01/23/16 12:00 98.2 96 20 160/76 97 01/23/16 08:00 98.1 100 20 158/87 97 01/23/16 05:15 98.0 103 18 135/86 94 01/23/16 01:15 98.7 98 18 142/86 95 01/22/16 21:15 98.3 101 18 159/97 95 Labs: Laboratory Tests Test 01/23/16 06:39 White Blood Count 14.4 TH/MM3 (4.0-11.0) Red Blood Count 3.29 MIL/MM3 (4.50-5.90) Hemoglobin 10.0 GM/DL (13.0-17.0) Hematocrit 29.6 % (39.0-51.0) Mean Corpuscular Volume 89.8 FL (80.0-100.0) Mean Corpuscular Hemoglobin 30.3 PG (27.0-34.0) Mean Corpuscular Hemoglobin 33.7 % Concent (32.0-36.0) Red Cell Distribution Width 14.8 % (11.6-17.2) Platelet Count 314 TH/MM3 (150-450) Mean Platelet Volume 8.3 FL (7.0-11.0) Prothrombin Time 14.0 SEC (9.8-11.6) Prothromb Time International 1.3 RATIO Ratio Activated Partial 59.0 SEC Thromboplast Time (24.3-30.1) Fibrinogen 482 mg/dL (181-393) Sodium Level 144 MEQ/L (136-145) Potassium Level 3.4 MEQ/L (3.5-5.1) Chloride Level 107 MEQ/L (98-107) Carbon Dioxide Level 28.6 MEQ/L (21.0-32.0) Anion Gap 8 MEQ/L (5-15) Blood Urea Nitrogen 19 MG/DL (7-18) Creatinine 1.88 MG/DL (0.60-1.30) Estimat Glomerular Filtration 36 ML/MIN (>89) Rate Random Glucose 165 MG/DL (74-106) Calcium Level 8.1 MG/DL (8.5-10.1) Result Diagram: 01/23/16 0639 01/23/1639 Cardiovascular: R groin and leg incisions c/d/i without erythema or palpable masses Palpable pedal pulses Plan: 1. I had a long talk with the patient, his daughter and son-in-law. Given the fluid around the graft, which is minimal and the benign skin appearance of the groin and leg, I don't think the graft infection is driving his clinical debilitation. I am worried about bladder (lower abdominal tenderness) and any other source. At this time, the potential benefits of major vascular reconstruction (graft excision and re-do bypass) are less than the risks, especially given his debilitation. We talked about general surgical risks including but not limited to limb loss, wound infection, and overall debilitation 2. I recommend a DHT given albumin 1.7 on admission. The family is in agreement. 3. Continue antibiotics. 4. Repeat R LE duplex tomorrow. If fluid around graft has increased, then may sway to perform graft excision. 5. Aggressive PT. 6. I will follow back up with the patient and his family tomorrow (Fri). Jeremie Stubbs MD Jan 23, 2016 17:56
[2016-01-23 20:00] VITALS: BP_SYST 150; BP_SYST 98; BP_DIAS 72; BP_DIAS 88; PULSE 96; PULSE 98; RESP 17; TEMP 96.8; TEMP 99.3; O2SAT 96; O2SAT 97
[2016-01-23] MEDS: ATORVASTATIN 40 MG TAB PO SCH (20:09)
[2016-01-24] VITALS: BP 144/78; PULSE 96; RESP 17; TEMP 98; O2SAT 98
[2016-01-24 04:00] VITALS: BP 162/88; PULSE 101; RESP 18; TEMP 98.2; O2SAT 97
[2016-01-24] MEDS: ceFAZolin 2 GM PREMIX 50 ML IV SCH ×3 (05:00→22:59)
[2016-01-24] MEDS: INSULIN ASPART SUPPLEMENTAL SCALE SQ SCH ×4 (05:56→19:57)
[2016-01-24 07:01] LABS: APTT (PATIENT) 49.4 SEC (24.3-30.1); INTERNATIONAL NORMALIZED RATIO 1.2 RATIO; PROTHROMBIN TIME - PATIENT 13.1 SEC (9.8-11.6)
[2016-01-24 07:08] LABS: BASOPHIL # 0.1 TH/MM3 (0-0.2); BASOPHIL % 0.5 % (0.0-2.0); EOSINOPHIL # 0.1 TH/MM3 (0-0.4); EOSINOPHIL % 0.5 % (0.0-4.0); HEMATOCRIT 28.3 % (39.0-51.0); HEMO FLAGS DIFF FINAL; LYMPH % 10.9 % (9.0-44.0); LYMPHOCYTE # 1.4 TH/MM3 (1.0-4.8); MEAN CELL VOLUME 91.3 FL (80.0-100.0); MEAN CORPUSCULAR HEMOGLOBIN 30.5 PG (27.0-34.0); MEAN CORPUSCULAR HGB CONC 33.4 % (32.0-36.0); MONO % 5.6 % (0.0-8.0); NEUT % 82.5 % (16.0-70.0); PLATELET COUNT 277 TH/MM3 (150-450); RED CELL DISTRIBUTION WIDTH 14.8 % (11.6-17.2); WHITE BLOOD COUNT 13.3 TH/MM3 (4.0-11.0)
[2016-01-24 07:20] LABS: BICARBONATE 30.4 MEQ/L (21.0-32.0); POTASSIUM 3.7 MEQ/L (3.5-5.1)
[2016-01-24] MEDS: POTASSIUM CHLORIDE 10 MEQ CONTROLLED RELEASE TAB PO SCH ×2 (07:33→19:56)
[2016-01-24] MEDS: amLODIPine BESYLATE 5 MG TAB PO SCH (07:33)
[2016-01-24] MEDS: RIFAMPIN 150 MG CAP PO SCH ×2 (07:33→19:55)
[2016-01-24] MEDS: CALCIUM CARBONATE 500 MG CHEWABLE TAB CHEW SCH ×2 (07:33→19:56)
[2016-01-24 07:41] VITALS: BP 157/85; PULSE 89; RESP 20; TEMP 98.6; O2SAT 95
[2016-01-24] MEDS: SODIUM CHLORIDE 0.9% FLUSH 5 ML FLUSH FLUSH SCH ×2 (09:00→19:57)
[2016-01-24] MEDS: LACTATED RINGER'S 1000 ML IV SCH (11:00)
[2016-01-24] MEDS: ERTAPENEM INJ 1,000 MG in SODIUM CHLORIDE 0.9% INJ 100 ML IV SCH (11:25)
--- NOTE | 2016-01-24 11:33 | HHI.PR ---
Subjective Remarks Pt seen and examined. C/O fatigue. Urine with some sediment in bag. CT scan performed yesterday and still with some air in bladder wall but does seem to be improving. Objective Vital Signs Vital Signs Date Time Temp Pulse Resp B/P Pulse Ox O2 Delivery O2 Flow Rate FiO2 01/24/16 07:41 98.6 89 20 157/85 95 01/24/16 04:00 98.2 101 18 162/88 97 01/24/16 00:00 98.0 96 17 144/78 98 01/23/16 20:00 99.3 96 17 150/88 96 01/23/16 16:00 98.8 104 22 155/90 99 01/23/16 12:00 98.2 96 20 160/76 97 I/O 01/23/16 01/23/16 01/23/16 01/24/16 01/24/16 01/24/16 06:59 14:59 22:59 06:59 14:59 22:59 Intake Total 456 ml 1370 ml 120 ml 240 ml 240 ml Output Total 950 ml 450 ml 300 ml 350 ml Balance -494 ml 920 ml -180 ml -110 ml 240 ml Intake Oral 120 ml 960 ml 120 ml 240 ml 240 ml IV Total 336 ml 410 ml Output Urine Total 950 ml 450 ml 300 ml 350 ml # Bowel Movements 1 0 Result Diagram: 01/24/1652101/24/16521 Objective Remarks Abd: soft,nt,nd Paul with some sediment Ext: Right LE edema 01/16 Abd: soft,nt,nd Paul with some sediment 01/19 Abd:soft,nt,nd Paul with clear urine 01/20 Abd:soft,nt,nd Paul with clear urine 01/21 Abd:soft,nt,nd Paul with clear urine 01/23 Abd: soft,nt,nd Paul with some sediment Assessment and Plan Assessment and Plan 70 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 Continue IV ABX Will perform another imaging study in 1-2 weeks. 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 01/19 70 y.o male with sepsis and atonic/neurogenic bladder with emphysematous cystitis Continue IV ABx Maintain paul catheter for now Repeat Imagining study in future 01/20 70 y.o male with sepsis and atonic/neurogenic bladder with emphysematous cystitis Maintain paul Repeat imagining study later in week 01/21 70 y.o male with sepsis and atonic/neurogenic bladder with emphysematous cystitis Maintain paul Plan for CT scan tomorrow to reevaluate bladder 01/23 70 y.o male with sepsis and atonic/neurogenic bladder with emphysematous cystitis Maintain paul for now Continue Abx OOB/Rehab Crescencio Lopez DO Jan 24, 2016 11:33
[2016-01-24] MEDS: SODIUM BICARBONATE 8.4% INJ 100 MEQ in SODIUM CHLOR 0.9% 1000 ML INJ 1,000 ML IV SCH ×2 (11:40→19:00)
[2016-01-24 11:45] VITALS: BP 153/88; PULSE 110; RESP 20; TEMP 98.1; O2SAT 94
--- NOTE | 2016-01-24 13:24 | PD.ONC.PN ---
Subjective Subjective Remarks Afebrile overnight. Patient resting comfortably without complaint. Objective Data Date Time Temp Pulse Resp B/P Pulse Ox O2 Delivery O2 Flow Rate FiO2 01/24/16 11:45 98.1 110 20 153/88 94 01/24/16 07:41 98.6 89 20 157/85 95 01/24/16 04:00 98.2 101 18 162/88 97 01/24/16 00:00 98.0 96 17 144/78 98 01/23/16 20:00 99.3 96 17 150/88 96 01/23/16 16:00 98.8 104 22 155/90 99 01/24/16 01/24/16 01/24/16 06:59 14:59 22:59 Intake Total 240 ml 480 ml Output Total 350 ml 1650 ml Balance -110 ml -1170 ml Result Diagram: 01/24/1622 01/24/16521 Laboratory Results Laboratory Tests Test 01/24/16 05:22 White Blood Count 13.3 TH/MM3 Red Blood Count 3.10 MIL/MM3 Hemoglobin 9.5 GM/DL Hematocrit 28.3 % Mean Corpuscular Volume 91.3 FL Mean Corpuscular Hemoglobin 30.5 PG Mean Corpuscular Hemoglobin 33.4 % Concent Red Cell Distribution Width 14.8 % Platelet Count 277 TH/MM3 Mean Platelet Volume 8.4 FL Neutrophils (%) (Auto) 82.5 % Lymphocytes (%) (Auto) 10.9 % Monocytes (%) (Auto) 5.6 % Eosinophils (%) (Auto) 0.5 % Basophils (%) (Auto) 0.5 % Neutrophils # (Auto) 11.0 TH/MM3 Lymphocytes # (Auto) 1.4 TH/MM3 Monocytes # (Auto) 0.7 TH/MM3 Eosinophils # (Auto) 0.1 TH/MM3 Basophils # (Auto) 0.1 TH/MM3 CBC Comment DIFF FINAL Differential Comment Prothrombin Time 13.1 SEC Prothromb Time International 1.2 RATIO Ratio Activated Partial 49.4 SEC Thromboplast Time Sodium Level 142 MEQ/L Potassium Level 3.7 MEQ/L Chloride Level 105 MEQ/L Carbon Dioxide Level 30.4 MEQ/L Anion Gap 7 MEQ/L Blood Urea Nitrogen 18 MG/DL Creatinine 2.03 MG/DL Estimat Glomerular Filtration 33 ML/MIN Rate Random Glucose 195 MG/DL Calcium Level 8.0 MG/DL Administered Medications Medications (Trade) Dose Ordered Sig/Smith Route PRN Reason Start Time Stop Time Status Last Admin Dose Admin IV Flush (NS Flush) 2 ml BID FLUSH 01/11/16 21:00 01/23/16 10:52 Acetaminophen (Tylenol) 650 mg Q4H PRN PO FEVER/PAIN 1-2 01/11/16 18:45 01/14/16 18:25 Acetaminophen/ Hydrocodone Bitart ([place] 5-325 Mg) 1 tab Q4H PRN PO PAIN 3-5 01/11/16 19:15 01/23/16 20:11 Heparin Sodium (Porcine) 2500 units 2,500 units UNSCH PRN IV APTT 25 TO 39 01/12/16 01:15 01/12/16 02:48 Heparin Sodium/ Dextrose (Heparin-D5W Inj) 250 ml @ 0 mls/hr TITRATE IV 01/11/16 19:15 01/23/16 14:04 Calcium Carbonate 500 mg 500 mg Q12HR CHEW 01/13/16 09:00 01/24/16 07:33 Ertapenem 1000 mg/ Sodium Chloride 100 ml @ 200 mls/hr Q24H IV 01/13/16 12:00 01/24/16 11:25 Cefazolin Sodium/ Dextrose (Ancef 2 Gm Premix) 50 ml @ 100 mls/hr Q8H IV 01/14/16 14:00 01/24/16 05:00 Atorvastatin Calcium (Lipitor) 40 mg HS PO 01/15/16 21:00 01/23/16 20:09 Amlodipine Besylate (Norvasc) 5 mg DAILY PO 01/15/16 09:45 01/24/16 07:33 Rifampin 150 mg 150 mg Q12HR PO 01/15/16 13:00 01/24/16 07:33 Sodium Bicarbonate/ Sodium Chloride (Sodium Bicarbonate 8.4% Inj/NS 1000 ml Inj) 1,100 ml @ 42 mls/hr Q24H IV 01/19/16 19:00 01/24/16 11:40 Potassium Chloride (KCl) 30 meq Q12HR PO 01/23/16 09:00 01/24/16 07:33 Objective Remarks GENERAL: Elderly male, sitting up in bed in [facility]. SKIN: Warm and dry. HEAD: Normocephalic. EYES: No injection or drainage. NECK: Supple, trachea midline. CARDIOVASCULAR: +S1/S2 RESPIRATORY: Breath sounds equal bilaterally. No accessory muscle use. GASTROINTESTINAL: Abdomen soft, non-tender, nondistended. EXTREMITIES: No cyanosis NEUROLOGICAL: awake and alert, normal speech. moving all extremities. Assessment/Plan Problem List: (1) DVT (deep venous thrombosis) Status: Acute Plan: 01/24/16: INR improved to 1.2 today. continue heparin drip. await completion of all procedures before transitioning to oral therapy History --Right lower extremity deep venous thrombosis and right upper extremity deep venous thrombosis. --likely triggered by sepsis and immobility. --was laying on the floor for several hours the day prior to presentation. --also a possibility that he had a PICC line placed on the right upper extremity during his hospital stay at [facility] a week prior to presentation. --the thrombosis appeared to be provoked. (2) Sepsis Status: Resolved Plan: --d/t UTI and vascular graft --on multiple antibiotics. (3) Neurogenic bladder Status: Acute Plan: --urology following. --Neurogenic bladder with recurrent urinary tract infection. --has been self-catheterizing. (4) Vascular graft infection Status: Acute Plan: --CTS following Assessment 70y/o male with newly diagnosed DVT's, admitted with urosepsis. h/o Diabetes mellitus. Hepatitis C. He was receiving treatment at [facility]. Plan 1. continue heparin drip. 2. await completion of all procedures b/f starting oral anticoagulation. Attending Statement The exam, history, and the medical decision-making described in the above note were completed with the assistance of the mid-level provider. I reviewed and agree with the findings presented. I attest that I had a [id number] encounter with the patient on the same day, and personally performed and documented my assessment and findings in the medical record. RLE slightly tender. No significant edema. Continue heparin. Start coumadin when he is done with invasive procedure. His coagulopathy has improved with Vit K. Problem Qualifiers (1) DVT (deep venous thrombosis): Qualified Code: I82.431 - Deep vein thrombosis (DVT) of popliteal vein of right lower extremity, unspecified chronicity (2) Sepsis: Qualified Code: A41.01 - Sepsis due to Methicillin susceptible Staphylococcus aureus Rukhsana Esquivel Jan 24, 2016 13:24 Osbaldo Flowers MD Jan 24, 2016 16:26
--- NOTE | 2016-01-24 13:44 | RADRPT ---
EXAM DATE/TIME: 01/24/2016 11:48 [facility] COMPARISON: US LEG BILATERAL VENOUS DOPPLER, January 20, 2016, 10:14. US VENOUS MAPPING,UP EXT,BILAT, January 20, 2016, 12:05. INDICATIONS : Right lower extremity post graft fluid collection. MEDICAL HISTORY : Hypercholesterolemia. Hypertension. Gastroesophageal reflux disease. Neurogenic bladder. Diabetes. E SBL+E.Coli, 01/13/16. SURGICAL HISTORY : Graft placement, right leg. Stent in right lower extremity. ENCOUNTER: Subsequent ACUITY: 1 month PAIN SCORE: 0/10 LOCATION: Right leg. AREA EVALUATED: Right medial thigh. FINDINGS: There is decreasing fluid surrounding anastomosis with only a small amount of fluid remaining posteri dasha. CONCLUSION: 1. Significant decrease in the perianastomotic fluid collection Shon Mancilla MD on January 24, 2016 at 13:41 Board Certified Radiologist. This report was verified electronically.
[2016-01-24] MEDS: ACETAMINOPHEN/HYDROcodone 325 MG/5 MG TAB PO PRN ×2 (13:53→18:54)
--- NOTE | 2016-01-24 14:03 | HHI.PR ---
Subjective Remarks Patient seen this morning around 11 AM. He denies any chest pain or shortness of breath. Does report some discomfort in the right leg, however says this is mild. Denies any nausea or vomiting. Discussed with nursing. No acute issues. Objective Vital Signs Date Time Temp Pulse Resp B/P Pulse Ox O2 Delivery O2 Flow Rate FiO2 01/24/16 11:45 98.1 110 20 153/88 94 01/24/16 07:41 98.6 89 20 157/85 95 01/24/16 04:00 98.2 101 18 162/88 97 01/24/16 00:00 98.0 96 17 144/78 98 01/23/16 20:00 99.3 96 17 150/88 96 01/23/16 16:00 98.8 104 22 155/90 99 I/O 01/23/16 01/23/16 01/23/16 01/24/16 01/24/16 01/24/16 07:00 15:00 23:00 07:00 15:00 23:00 Intake Total 456 ml 1370 ml 120 ml 240 ml 480 ml Output Total 950 ml 450 ml 300 ml 350 ml 1650 ml Balance -494 ml 920 ml -180 ml -110 ml -1170 ml Intake Oral 120 ml 960 ml 120 ml 240 ml 480 ml IV Total 336 ml 410 ml Output Urine Total 950 ml 450 ml 300 ml 350 ml 1650 ml # Bowel Movements 1 0 Result Diagram: 01/24/1652101/24/16521 Objective Remarks GENERAL: Thin 70-year-old male. Lying in bed. No acute distress. SKIN: Warm and dry. HEAD: Normocephalic. EYES: No scleral icterus. No injection or drainage. NECK: Supple, trachea midline. No JVD. CARDIOVASCULAR: Regular rate and rhythm without murmurs, gallops, or rubs. RESPIRATORY: Breath sounds equal bilaterally. No accessory muscle use. GASTROINTESTINAL: Abdomen soft, non-tender, nondistended. MUSCULOSKELETAL: No cyanosis. trace right lower extremity edema. Patient has multiple non-confluent subcentimeter nonblanching purpuric macules on the plantar surface of the right foot as before, no change. BACK: Nontender without obvious deformity. No CVA tenderness. A/P Assessment and Plan 01/23. Pending Doppler ultrasound of right femoropopliteal stent. Continue antibiotics as per infectious disease. Potassium appears repleted. Have ordered dietary consult for malnutrition. 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 - Dr. Avlarenga on consult for second opinion and has offered surgery, patient now stating he would like to stay at [facility] for surgery, however surgery on hold as there is now a question of patient's capacity as his mental status waxes and wanes as well as family's understanding of risks/benefits of proceeding with surgery, as patient has multiple other underlying serious infections and is clearly high risk for surgery. -Palliative care following to help facilitate goals of care and family communication. - Appreciate vascular surgery assistance -Cont rifampin and IV antibiotics/cefazolin as per Dr. Lee Beaver. //Severe emphysematous UTI (recurrent or worsening as compared to previous CT done 09/2014) - with air in the extraperitoneal pelvis suggestive of possible developing fistula or bladder perforation. Urine cx growing E. Coli ESBL and staph aureus. -Plan is to continue paul and antibiotics for some weeks and repeat CT in 2 weeks as usually extraperitoneal bladder perforation will heal on their own. -The patient is on ertapenem start date 01/12 for this infection. - Appreciate infectious disease and urology assistance. Continue with Paul. Continue antibiotics as per infectious disease. // Acute metabolic encephalopathy //Hospital delirium - improving at times, however patient's daughter states he is nowhere near baseline.\\ -CT head 01/20 with no acute intracranial abnormality -Altered mental status most certainly secondary to systemic infection. No indication of meningitis or septic embolic stroke - improving with treatment of underlying medical illnesses. Cont ST. continue to monitor mental status. // Severe, persistent hypokalemia Appears improved after replacement.- -- continue repletion 30 meq Po BID. -repeat BMP in a.m. //Chronic urinary retention possibly due to neurogenic bladder - self catheterizes at home. Continue paul as per urology. - Appreciate urology assistance. //Acute on Chronic kidney injury: -Creatinine 3.55 on admission. -Improved. Creatinine 2. Relatively stable. on IVF. Continue to monitor renal function. // Rhabdomyolysis - resolved. PT/OT following. OT does recommend inpatient rehab. //Elevated Trop: Trop 0.07, EKG w/ no acute changes. Likely secondary to worsening renal function. ECHO which showed EF 55-60%. stress test showed " Small size, moderate severity nonreversible apical perfusion abnormality, low risk". Appreciate cardiology input. // DM type 2: Uncontrolled. -Hgb A1c 8.0. - Relatively well controlled in hospital. -Continue sliding scale w/ Accu-Cheks. -Continue to monitor. // DVT of right upper popliteal and peroneal tributary, and of right upper extremity in the brachial vein. -Continue heparin drip until able to bridge to coumadin. -Will need at least 3 months AC for provoked DVT, appreciate hematology input. // Left elbow swelling: Orthopedic evaluated pt, CT elbow negative for effusion or abscess. Appreciate assistance. //DVT prophylaxis. Patient is on therapeutic treatment for DVT. 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 -Physical therapy recommends rehabilitation. -Appreciate case management assistance. Carlos Bustillo MD Jan 24, 2016 14:03
[2016-01-24 16:00] VITALS: BP 156/97; PULSE 101; RESP 16; TEMP 98; O2SAT 95
[2016-01-24] MEDS: ATORVASTATIN 40 MG TAB PO SCH (19:56)
[2016-01-24 20:00] VITALS: BP 159/97; PULSE 99; RESP 16; TEMP 97.8; O2SAT 97
[2016-01-25] VITALS: BP 158/86; PULSE 92; RESP 16; TEMP 97.8; O2SAT 97
[2016-01-25] MEDS: HEPARIN-D5W INJ 250 ML IV SCH (03:10)
[2016-01-25 04:00] VITALS: BP 149/85; PULSE 98; RESP 16; TEMP 97.4; O2SAT 97
[2016-01-25] MEDS: INSULIN ASPART SUPPLEMENTAL SCALE SQ SCH ×4 (05:42→22:03)
[2016-01-25] MEDS: ceFAZolin 2 GM PREMIX 50 ML IV SCH ×3 (05:42→21:31)
[2016-01-25 07:10] LABS: AUTOMATED NEUTROPHIL # 9.5 TH/MM3 (1.8-7.7); BASOPHIL # 0.1 TH/MM3 (0-0.2); BASOPHIL % 0.4 % (0.0-2.0); EOSINOPHIL # 0.1 TH/MM3 (0-0.4); EOSINOPHIL % 0.6 % (0.0-4.0); HEMATOCRIT 32.1 % (39.0-51.0); HEMO FLAGS DIFF FINAL; LYMPH % 12.6 % (9.0-44.0); LYMPHOCYTE # 1.5 TH/MM3 (1.0-4.8); MEAN CELL VOLUME 90.4 FL (80.0-100.0); MEAN CORPUSCULAR HEMOGLOBIN 30.3 PG (27.0-34.0); MEAN CORPUSCULAR HGB CONC 33.5 % (32.0-36.0); MONO % 5.4 % (0.0-8.0); PLATELET COUNT 265 TH/MM3 (150-450); RED BLOOD COUNT 3.54 MIL/MM3 (4.50-5.90); RED CELL DISTRIBUTION WIDTH 14.7 % (11.6-17.2); WHITE BLOOD COUNT 11.7 TH/MM3 (4.0-11.0)
[2016-01-25 07:12] LABS: APTT (PATIENT) 54.8 SEC (24.3-30.1)
[2016-01-25 07:24] LABS: BICARBONATE 29.3 MEQ/L (21.0-32.0); POTASSIUM 3.6 MEQ/L (3.5-5.1)
[2016-01-25 08:00] VITALS: BP 155/89; PULSE 102; RESP 18; TEMP 98; O2SAT 95
[2016-01-25] MEDS: SODIUM CHLORIDE 0.9% FLUSH 5 ML FLUSH FLUSH SCH ×2 (09:20→21:00)
[2016-01-25] MEDS: CALCIUM CARBONATE 500 MG CHEWABLE TAB CHEW SCH ×2 (09:25→21:30)
[2016-01-25] MEDS: RIFAMPIN 150 MG CAP PO SCH ×2 (09:25→21:35)
[2016-01-25] MEDS: amLODIPine BESYLATE 5 MG TAB PO SCH (09:25)
[2016-01-25] MEDS: POTASSIUM CHLORIDE 10 MEQ CONTROLLED RELEASE TAB PO SCH ×2 (09:26→21:30)
[2016-01-25] MEDS: ACETAMINOPHEN/HYDROcodone 325 MG/5 MG TAB PO PRN ×2 (09:33→18:34)
[2016-01-25] MEDS: LACTATED RINGER'S 1000 ML IV SCH (11:00)
[2016-01-25] MEDS: SODIUM BICARBONATE 8.4% INJ 100 MEQ in SODIUM CHLOR 0.9% 1000 ML INJ 1,000 ML IV SCH ×2 (11:09→21:29)
[2016-01-25] MEDS: ERTAPENEM INJ 1,000 MG in SODIUM CHLORIDE 0.9% INJ 100 ML IV SCH (11:10)
[2016-01-25 12:00] VITALS: BP 149/74; PULSE 95; RESP 16; TEMP 97.8; O2SAT 95
[2016-01-25 16:00] VITALS: BP 145/85; PULSE 98; RESP 16; TEMP 98.2; O2SAT 96
[2016-01-25 20:00] VITALS: BP 150/84; PULSE 101; RESP 16; TEMP 97.6; O2SAT 95
[2016-01-25] MEDS: ATORVASTATIN 40 MG TAB PO SCH (21:29)
--- NOTE | 2016-01-25 23:22 | HHI.PR ---
Subjective Remarks patient seen this morning around 11:30 AM. Sleeping, wakes up for exam. He denies any pain.denies any shortness of breath. Does say he feels generally fatigued however, similar to yesterday.. Objective Vital Signs Date Time Temp Pulse Resp B/P Pulse Ox O2 Delivery O2 Flow Rate FiO2 01/25/16 20:00 97.6 101 16 150/84 95 01/25/16 19:34 16 01/25/16 16:00 98.2 98 16 145/85 96 01/25/16 12:00 97.8 95 16 149/74 95 01/25/16 08:00 98.0 102 18 155/89 95 01/25/16 04:00 97.4 98 16 149/85 97 01/25/16 00:00 97.8 92 16 158/86 97 I/O 01/24/16 01/24/16 01/24/16 01/25/16 01/25/16 01/25/16 07:00 15:00 23:00 07:00 15:00 23:00 Intake Total 240 ml 480 ml 860 ml 754 ml 885 ml Output Total 350 ml 1650 ml 1600 ml 1000 ml Balance -110 ml -1170 ml -740 ml -246 ml 885 ml Intake Oral 240 ml 480 ml 240 ml 120 ml 360 ml IV Total 620 ml 634 ml 525 ml Output Urine Total 350 ml 1650 ml 1600 ml 1000 ml # Bowel Movements 0 Result Diagram: 01/25/16 0621 01/25/16 0614 Imaging Last Impressions Lower Extremity Ultrasound 01/24/16 0426 Signed Impressions: Service Date/Time: Sunday, January 24, 2016 11:48 - CONCLUSION: 1. Significant decrease in the perianastomotic fluid collection Shon Mancilla MD Abdomen/Pelvis CT 01/23/16 0600 Signed Impressions: Service Date/Time: January 09:35 - CONCLUSION: 1. 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 2. Diverticulosis without evidence of diverticulitis. 3. Small bilateral effusions Shon Mancilla MD Head CT 01/21/16 0000 Signed Impressions: Service Date/Time: Thursday, January 21, 2016 10:58 - CONCLUSION: 1. No acute intracranial abnormality is identified. 2. Chronic changes include mild cerebral atrophy and periventricular white matter low attenuation characteristic of chronic microvascular ischemia. Additionally, there is encephalomalacia in the right frontal lobe likely related to prior ischemia. 3. 9 mm extra-axial ossification in the right parietal high convexity may represent a calcified meningioma. Jayce Peck MD Upper Extremity Ultrasound 01/20/16 0000 Signed Impressions: Service Date/Time: Wednesday, January 20, 2016 12:05 - CONCLUSION: Venous mapping as detailed above. John Mills Jr., MD Lower Extremity CT 01/19/16 0000 Signed Impressions: Service Date/Time: Wednesday, January 20, 2016 08:25 - CONCLUSION: 1. Abnormal cortical thickening involving tibia and fibula. This may reflect osteomyelitis. If there is necessity for further evaluation contrast-enhanced MRI is recommended. Shon Mancilla MD Cervical Spine CT 01/15/16 0000 Signed Impressions: Service Date/Time: Friday, January 15, 2016 15:51 - CONCLUSION: No abscess observed. John Mills Jr., MD Upper Extremity CT 01/14/16 0000 Signed Impressions: Service Date/Time: Friday, January 15, 2016 16:08 - CONCLUSION: Small olecranon spur. Intact bony structures. No evidence of fluid collection or abscess formation Arian Stone MD Elbow X-Ray 01/14/16 0000 Signed Impressions: Service Date/Time: Thursday, January 14, 2016 13:05 - CONCLUSION: Possible soft tissue swelling overlying the olecranon. Otherwise negative exam Arian Stone MD Chest CT 01/14/16 0000 Signed Impressions: Service Date/Time: Thursday, January 14, 2016 15:37 - CONCLUSION: Right lower lobe interstitial change with a peripheral wedge shaped triangular area of parenchymal consolidation and associated small pleural effusion. Arian Stone MD Myocardial Perfusion Scan Nuc Med 01/13/16 0000 Signed Impressions: Service Date/Time: Wednesday, January 13, 2016 10:52 - CONCLUSION: Small size, moderate severity nonreversible apical perfusion abnormality. RISK CATEGORY: Low (<1%% Annual Mortality Rate) Jayce Ham MD Shoulder X-Ray 01/12/16 0000 Signed Impressions: Service Date/Time: Tuesday, January 12, 2016 09:24 - CONCLUSION: 1. No acute fracture or subluxation of the left shoulder. 2. Probably an old fracture of the distal clavicle, healed. 3. 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 Jayce Ng MD Knee X-Ray 01/11/16 6557 Signed Impressions: Service Date/Time: Monday, January 11, 2016 16:43 - CONCLUSION: Small joint effusion. Jessica Blackburn MD Chest X-Ray 01/11/16 1555 Signed Impressions: Service Date/Time: Monday, January 11, 2016 16:40 - CONCLUSION: No acute cardiopulmonary disease. Jessica Blackburn MD Objective Remarks GENERAL: Thin 70-year-old male. Lying in bed. No acute distress. SKIN: Warm and dry. HEAD: Normocephalic. EYES: No scleral icterus. No injection or drainage. NECK: Supple, trachea midline. No JVD. CARDIOVASCULAR: Regular rate and rhythm without murmurs, gallops, or rubs. RESPIRATORY: Breath sounds equal bilaterally. No accessory muscle use. GASTROINTESTINAL: Abdomen soft, non-tender, nondistended. MUSCULOSKELETAL: No cyanosis. trace right lower extremity edema improved.. Patient has multiple non-confluent subcentimeter nonblanching purpuric macules on the plantar surface of the right foot as before. BACK: Nontender without obvious deformity. No CVA tenderness. A/P Assessment and Plan 01/23. Pending Doppler ultrasound of right femoropopliteal stent. Continue antibiotics as per infectious disease. Potassium appears repleted. Have ordered dietary consult for malnutrition. 01/24. Right femoropopliteal stent with decrease in perianastomotic fluid collection on ultrasound. Appreciate dietary recommendations. Continue antibiotics as per infectious disease. 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 - Dr. Alvarenga on consult for second opinion and has offered surgery, patient now stating he would like to stay at [place] for surgery, however surgery on hold as there is now a question of patient's capacity as his mental status waxes and wanes as well as family's understanding of risks/benefits of proceeding with surgery, as patient has multiple other underlying serious infections and is clearly high risk for surgery. -Palliative care following to help facilitate goals of care and family communication. - Appreciate vascular surgery assistance -Cont rifampin and IV antibiotics/cefazolin as per Dr. Lee Beaver. //Severe emphysematous UTI (recurrent or worsening as compared to previous CT done 09/2014) - with air in the extraperitoneal pelvis suggestive of possible developing fistula or bladder perforation. Urine cx growing E. Coli ESBL and staph aureus. -Plan is to continue paul and antibiotics for some weeks and repeat CT in 2 weeks as usually extraperitoneal bladder perforation will heal on their own. -The patient is on ertapenem start date 01/12 for this infection. - Appreciate infectious disease and urology assistance. Continue with Paul. Continue antibiotics as per infectious disease. // Acute metabolic encephalopathy //Hospital delirium - improving at times, however patient's daughter states he is nowhere near baseline.\\ -CT head 01/20 with no acute intracranial abnormality -Altered mental status most certainly secondary to systemic infection. No indication of meningitis or septic embolic stroke - improving with treatment of underlying medical illnesses. Cont ST. continue to monitor mental status. // Severe, persistent hypokalemia Appears improved after replacement.- -- continue repletion 30 meq Po BID. -repeat BMP in a.m. //Chronic urinary retention possibly due to neurogenic bladder - self catheterizes at home. Continue paul as per urology. - Appreciate urology assistance. //Acute on Chronic kidney injury: -Creatinine 3.55 on admission. -Improved. Creatinine 2. Relatively stable. on IVF. Continue to monitor renal function. // Rhabdomyolysis - resolved. PT/OT following. OT does recommend inpatient rehab. //Elevated Trop: Trop 0.07, EKG w/ no acute changes. Likely secondary to worsening renal function. ECHO which showed EF 55-60%. stress test showed " Small size, moderate severity nonreversible apical perfusion abnormality, low risk". Appreciate cardiology input. // DM type 2: Uncontrolled. -Hgb A1c 8.0. - Relatively well controlled in hospital. -Continue sliding scale w/ Accu-Cheks. -Continue to monitor. // DVT of right upper popliteal and peroneal tributary, and of right upper extremity in the brachial vein. -Continue heparin drip until able to bridge to coumadin. -Will need at least 3 months AC for provoked DVT, appreciate hematology input. // Left elbow swelling: Orthopedic evaluated pt, CT elbow negative for effusion or abscess. Appreciate assistance. //Severe protein calorie malnutrition. - 01/24. Appreciate dietary recommendations. Start 2500-calorie diabetic diet. Glucerna shakes 3 times a day //DVT prophylaxis. Patient is on therapeutic treatment for DVT. 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 -Physical therapy recommends rehabilitation. -Appreciate case management assistance. Carlos Bustillo MD Jan 25, 2016 23:22
[2016-01-26] VITALS: BP 163/89; PULSE 100; RESP 18; TEMP 97.9; O2SAT 97
[2016-01-26 04:00] VITALS: BP 156/89; PULSE 97; RESP 16; TEMP 98.3; O2SAT 96
[2016-01-26 05:55] LABS: HEMATOCRIT 29.5 % (39.0-51.0); MEAN CORPUSCULAR HEMOGLOBIN 30.5 PG (27.0-34.0); MEAN CORPUSCULAR HGB CONC 33.5 % (32.0-36.0); PLATELET COUNT 244 TH/MM3 (150-450); RED BLOOD COUNT 3.24 MIL/MM3 (4.50-5.90); RED CELL DISTRIBUTION WIDTH 15.1 % (11.6-17.2); REVIEW FLAG FINAL; WHITE BLOOD COUNT 11.1 TH/MM3 (4.0-11.0)
[2016-01-26] MEDS: INSULIN ASPART SUPPLEMENTAL SCALE SQ SCH ×4 (06:04→21:53)
[2016-01-26] MEDS: ceFAZolin 2 GM PREMIX 50 ML IV SCH ×3 (06:05→21:55)
[2016-01-26 06:09] LABS: APTT (PATIENT) 53.8 SEC (24.3-30.1)
[2016-01-26] MEDS: HEPARIN-D5W INJ 250 ML IV SCH (06:12)
[2016-01-26 06:35] LABS: ALKALINE PHOSPHATASE 83 U/L (45-117); ALT (GPT) LESS THAN 6 U/L (12-78); ANION GAP 9 MEQ/L (5-15); AST (GOT) 12 U/L (15-37); BICARBONATE 29.1 MEQ/L (21.0-32.0); BLOOD UREA NITROGEN 19 MG/DL (7-18); CHLORIDE 102 MEQ/L (98-107); GLOMERULAR FILTRATION RATE 31 ML/MIN (>89); POTASSIUM 3.7 MEQ/L (3.5-5.1); SODIUM (NA) 140 MEQ/L (136-145); TOTAL BILIRUBIN ADULT 0.2 MG/DL (0.2-1.0)
[2016-01-26 08:00] VITALS: BP 127/88; PULSE 68; RESP 16; TEMP 97; O2SAT 100
[2016-01-26] MEDS: CALCIUM CARBONATE 500 MG CHEWABLE TAB CHEW SCH ×2 (08:56→21:54)
[2016-01-26] MEDS: RIFAMPIN 150 MG CAP PO SCH ×2 (08:56→21:54)
[2016-01-26] MEDS: POTASSIUM CHLORIDE 10 MEQ CONTROLLED RELEASE TAB PO SCH ×2 (08:56→21:54)
[2016-01-26] MEDS: SODIUM CHLORIDE 0.9% FLUSH 5 ML FLUSH FLUSH SCH ×2 (08:56→22:10)
[2016-01-26] MEDS: amLODIPine BESYLATE 5 MG TAB PO SCH (08:56)
[2016-01-26] MEDS: ACETAMINOPHEN/HYDROcodone 325 MG/5 MG TAB PO PRN (08:57)
[2016-01-26] MEDS: LACTATED RINGER'S 1000 ML IV SCH (11:00)
[2016-01-26] MEDS: ERTAPENEM INJ 1,000 MG in SODIUM CHLORIDE 0.9% INJ 100 ML IV SCH (11:39)
[2016-01-26 12:00] VITALS: BP 121/79; PULSE 74; RESP 18; TEMP 97.7; O2SAT 98
[2016-01-26 16:00] VITALS: BP 170/90; PULSE 98; RESP 14; TEMP 98.1; O2SAT 98
[2016-01-26 20:00] VITALS: BP 151/76; PULSE 107; RESP 18; TEMP 99.2; O2SAT 96
--- NOTE | 2016-01-26 21:47 | HHI.PR ---
Subjective Remarks patient seen this morning around 1 PM. Sitting up in bed. Appears comfortable. Says he is feeling a little bit better than yesterday. Denies any pain. Continues report generalized fatigue. No chest pain or shortness of breath. Discussed with nursing. Glucose highlikely secondary to liberalize diabetic diet.. Will add Levemir. Objective Vital Signs Date Time Temp Pulse Resp B/P Pulse Ox O2 Delivery O2 Flow Rate FiO2 01/26/16 16:00 98.1 98 14 170/90 98 01/26/16 12:00 97.7 74 18 121/79 98 01/26/16 08:00 97.0 68 16 127/88 100 01/26/16 04:00 98.3 97 16 156/89 96 01/26/16 00:00 97.9 100 18 163/89 97 I/O 01/25/16 01/25/16 01/25/16 01/26/16 01/26/16 01/26/16 06:59 14:59 22:59 06:59 14:59 22:59 Intake Total 754 ml 885 ml 720 ml 240 ml 849 ml 120 ml Output Total 1000 ml 800 ml 900 ml 1000 ml Balance -246 ml 885 ml -80 ml -660 ml -151 ml 120 ml Intake Oral 120 ml 360 ml 720 ml 240 ml 240 ml 120 ml IV Total 634 ml 525 ml 609 ml Output Urine Total 1000 ml 800 ml 900 ml 1000 ml # Bowel Movements 0 0 Result Diagram: 01/26/16 0500 01/26/16 0500 Objective Remarks GENERAL: Thin 70-year-old male. Lying in bed. No acute distress. SKIN: Warm and dry. HEAD: Normocephalic. EYES: No scleral icterus. No injection or drainage. NECK: Supple, trachea midline. No JVD. CARDIOVASCULAR: Regular rate and rhythm without murmurs, gallops, or rubs. RESPIRATORY: Breath sounds equal bilaterally. No accessory muscle use. GASTROINTESTINAL: Abdomen soft, non-tender, nondistended. MUSCULOSKELETAL: No cyanosis. trace right lower extremity edema improved.. Patient has multiple non-confluent subcentimeter nonblanching purpuric macules on the plantar surface of the right foot as before-no change. BACK: Nontender without obvious deformity. No CVA tenderness. A/P Assessment and Plan 12/16. Pending Doppler ultrasound of right femoropopliteal stent. Continue antibiotics as per infectious disease. Potassium appears repleted. Have ordered dietary consult for malnutrition. 01/24. Right femoropopliteal stent with decrease in perianastomotic fluid collection on ultrasound. Appreciate dietary recommendations. Continue antibiotics as per infectious disease. 01/25. Slight increase in creatinine. We'll continue to monitor. Still very well below creatinine on admission. Glucose elevated. 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 - Dr. Alvarenga on consult for second opinion and has offered surgery, patient now stating he would like to stay [facility] for [facility], however surgery on hold as there is now a question of patient's capacity as his mental status waxes and wanes as well as family's understanding of risks/benefits of proceeding with surgery, as patient has multiple other underlying serious infections and is clearly high risk for surgery. -Palliative care following to help facilitate goals of care and family communication. - Appreciate vascular surgery assistance -Cont rifampin and IV antibiotics/cefazolin as per Dr. Lee Beaver. //Severe emphysematous UTI (recurrent or worsening as compared to previous CT done 09/2014) - with air in the extraperitoneal pelvis suggestive of possible developing fistula or bladder perforation. Urine cx growing E. Coli ESBL and staph aureus. -Plan is to continue paul and antibiotics for some weeks and repeat CT in 2 weeks as usually extraperitoneal bladder perforation will heal on their own. -The patient is on ertapenem start date 01/12 for this infection. - Appreciate infectious disease and urology assistance. Continue with Paul. Continue antibiotics as per infectious disease. // Acute metabolic encephalopathy //Hospital delirium - improving at times, however patient's daughter states he is nowhere near baseline.\\ -CT head 01/20 with no acute intracranial abnormality -Altered mental status most certainly secondary to systemic infection. No indication of meningitis or septic embolic stroke - improving with treatment of underlying medical illnesses. Cont ST. continue to monitor mental status. // Severe, persistent hypokalemia Appears improved after replacement.- -- continue repletion 30 meq Po BID. -repeat BMP in a.m. //Chronic urinary retention possibly due to neurogenic bladder - self catheterizes at home. Continue paul as per urology. - Appreciate urology assistance. //Acute on Chronic kidney injury: -Creatinine 3.55 on admission. -Improved. Creatinine 2. Relatively stable. on IVF. Continue to monitor renal function. // Rhabdomyolysis - resolved. PT/OT following. OT does recommend inpatient rehab. //Elevated Trop: Trop 0.07, EKG w/ no acute changes. Likely secondary to worsening renal function. ECHO which showed EF 55-60%. stress test showed " Small size, moderate severity nonreversible apical perfusion abnormality, low risk". Appreciate cardiology input. // DM type 2: Uncontrolled. -Hgb A1c 8.0. - Relatively well controlled in hospital. -Continue sliding scale w/ Accu-Cheks. -Continue to monitor. 01/25. Glucose elevated.likely secondary to liberalize diet. Patient eating a lot of popsicles, but glad he is eating.. Will add Levemir 5 units nightly // DVT of right upper popliteal and peroneal tributary, and of right upper extremity in the brachial vein. -Continue heparin drip until able to bridge to coumadin. -Will need at least 3 months AC for provoked DVT, appreciate hematology input. // Left elbow swelling: Orthopedic evaluated pt, CT elbow negative for effusion or abscess. Appreciate assistance. //Severe protein calorie malnutrition. - 01/24. Appreciate dietary recommendations. Start 2500-calorie diabetic diet. Glucerna shakes 3 times a day //DVT prophylaxis. Patient is on therapeutic treatment for DVT. 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 -Physical therapy recommends rehabilitation. -Appreciate case management assistance. Carlos Bustillo MD Jan 26, 2016 21:47
[2016-01-26] MEDS: ATORVASTATIN 40 MG TAB PO SCH (21:54)
[2016-01-26] MEDS: INSULIN DETEMIR 100 UNITS/ML VIAL SQ SCH (22:10)
[2016-01-27] VITALS: BP 150/87; PULSE 106; RESP 17; TEMP 96.9; O2SAT 95
[2016-01-27 04:00] VITALS: BP 146/90; PULSE 105; RESP 19; TEMP 97; O2SAT 99
[2016-01-27] MEDS: ACETAMINOPHEN/HYDROcodone 325 MG/5 MG TAB PO PRN ×3 (04:58→21:46)
[2016-01-27] MEDS: ceFAZolin 2 GM PREMIX 50 ML IV SCH ×3 (05:02→21:44)
[2016-01-27] MEDS: INSULIN ASPART SUPPLEMENTAL SCALE SQ SCH ×4 (06:26→21:45)
[2016-01-27 07:37] LABS: AUTOMATED NEUTROPHIL # 9.3 TH/MM3 (1.8-7.7); BASOPHIL # 0.1 TH/MM3 (0-0.2); BASOPHIL % 0.5 % (0.0-2.0); EOSINOPHIL # 0.1 TH/MM3 (0-0.4); EOSINOPHIL % 0.5 % (0.0-4.0); HEMATOCRIT 28.6 % (39.0-51.0); HEMO FLAGS DIFF FINAL; LYMPH % 12.6 % (9.0-44.0); LYMPHOCYTE # 1.5 TH/MM3 (1.0-4.8); MEAN CELL VOLUME 91.9 FL (80.0-100.0); MEAN CORPUSCULAR HEMOGLOBIN 30.9 PG (27.0-34.0); MEAN CORPUSCULAR HGB CONC 33.6 % (32.0-36.0); MONO % 8.2 % (0.0-8.0); NEUT % 78.2 % (16.0-70.0); PLATELET COUNT 224 TH/MM3 (150-450); RED BLOOD COUNT 3.11 MIL/MM3 (4.50-5.90); RED CELL DISTRIBUTION WIDTH 15.6 % (11.6-17.2); WHITE BLOOD COUNT 11.9 TH/MM3 (4.0-11.0)
[2016-01-27 07:44] LABS: APTT (PATIENT) 47.8 SEC (24.3-30.1); INTERNATIONAL NORMALIZED RATIO 1.2 RATIO
[2016-01-27] MEDS: SODIUM BICARBONATE 8.4% INJ 100 MEQ in SODIUM CHLOR 0.9% 1000 ML INJ 1,000 ML IV SCH (07:50)
[2016-01-27 07:53] LABS: BLOOD, URINE SMALL (NEG); GLUCOSE,URINE 70 mg/dL (NEG); KETONE, URINE NEG (NEG); NITRITE,URINE NEG (NEG); URINE COLOR YELLOW (YELLW/STRAW)
[2016-01-27 07:54] LABS: BACTERIA, URINE RARE /hpf; COMMENT (UR) CATH-CULTURE IND; CULTURE IF INDICATED CATH CULTURE IND
[2016-01-27 08:00] VITALS: BP 141/78; PULSE 102; RESP 20; TEMP 98.8; O2SAT 96
[2016-01-27 08:14] LABS: BICARBONATE 28.9 MEQ/L (21.0-32.0)
[2016-01-27] MEDS: RIFAMPIN 150 MG CAP PO SCH ×2 (09:00→21:45)
[2016-01-27] MEDS: SODIUM CHLORIDE 0.9% FLUSH 5 ML FLUSH FLUSH SCH ×2 (09:00→21:46)
[2016-01-27] MEDS: amLODIPine BESYLATE 5 MG TAB PO SCH (09:00)
[2016-01-27] MEDS: CALCIUM CARBONATE 500 MG CHEWABLE TAB CHEW SCH ×2 (09:00→21:46)
[2016-01-27] MEDS: POTASSIUM CHLORIDE 10 MEQ CONTROLLED RELEASE TAB PO SCH ×2 (09:00→21:45)
[2016-01-27] MEDS: LACTATED RINGER'S 1000 ML IV SCH (11:00)
--- NOTE | 2016-01-27 11:22 | PD.ONC.PN ---
Subjective Subjective Remarks Afebrile overnight. Pt resting in bed with eyes closed. Awakens easily to verbal stimuli. Denies any complaints. He states he had breakfast this am. Objective Data Date Time Temp Pulse Resp B/P Pulse Ox O2 Delivery O2 Flow Rate FiO2 01/27/16 08:00 98.8 102 20 141/78 96 01/27/16 05:38 18 01/27/16 04:00 97.0 105 19 146/90 99 01/27/16 00:00 96.9 106 17 150/87 95 01/26/16 20:00 99.2 107 18 151/76 96 01/26/16 16:00 98.1 98 14 170/90 98 01/26/16 12:00 97.7 74 18 121/79 98 Result Diagram: 01/27/16 0650 01/27/16 0650 Laboratory Results Laboratory Tests Test 01/27/16 01/27/16 06:00 06:50 Urine Color YELLOW Urine Turbidity HAZY Urine pH 8.0 Urine Specific [place] 1.014 Urine Protein 300 mg/dL Urine Glucose (UA) 70 mg/dL Urine Ketones NEG mg/dL Urine Occult Blood SMALL Urine Nitrite NEG Urine Bilirubin NEG Urine Urobilinogen LESS THAN 2.0 MG/DL Urine Leukocyte Esterase LARGE Urine RBC 11 /hpf Urine WBC /hpf Urine WBC Clumps MANY Urine Bacteria RARE /hpf Microscopic Urinalysis Comment CATH-CULTURE IND White Blood Count 11.9 TH/MM3 Red Blood Count 3.11 MIL/MM3 Hemoglobin 9.6 GM/DL Hematocrit 28.6 % Mean Corpuscular Volume 91.9 FL Mean Corpuscular Hemoglobin 30.9 PG Mean Corpuscular Hemoglobin 33.6 % Concent Red Cell Distribution Width 15.6 % Platelet Count 224 TH/MM3 Mean Platelet Volume 8.2 FL Neutrophils (%) (Auto) 78.2 % Lymphocytes (%) (Auto) 12.6 % Monocytes (%) (Auto) 8.2 % Eosinophils (%) (Auto) 0.5 % Basophils (%) (Auto) 0.5 % Neutrophils # (Auto) 9.3 TH/MM3 Lymphocytes # (Auto) 1.5 TH/MM3 Monocytes # (Auto) 1.0 TH/MM3 Eosinophils # (Auto) 0.1 TH/MM3 Basophils # (Auto) 0.1 TH/MM3 CBC Comment DIFF FINAL Differential Comment Prothrombin Time 13.0 SEC Prothromb Time International 1.2 RATIO Ratio Activated Partial 47.8 SEC Thromboplast Time Sodium Level 141 MEQ/L Potassium Level 4.0 MEQ/L Chloride Level 105 MEQ/L Carbon Dioxide Level 28.9 MEQ/L Anion Gap 7 MEQ/L Blood Urea Nitrogen 19 MG/DL Creatinine 2.05 MG/DL Estimat Glomerular Filtration 32 ML/MIN Rate Random Glucose 148 MG/DL Calcium Level 8.4 MG/DL B-Type Natriuretic Peptide 133 PG/ML Culture Results Microbiology Date/Time Procedure Status Source Growth 01/27/16 06:00 Urine Culture Received Urine Catheterized Urine Pending Administered Medications Medications (Trade) Dose Ordered Sig/Smith Route PRN Reason Start Time Stop Time Status Last Admin Dose Admin IV Flush (NS Flush) 2 ml BID FLUSH 01/11/16 21:00 01/23/16 10:52 Acetaminophen (Tylenol) 650 mg Q4H PRN PO FEVER/PAIN 1-2 01/11/16 18:45 01/14/16 18:25 Acetaminophen/ Hydrocodone Bitart ([place] 5-325 Mg) 1 tab Q4H PRN PO PAIN 3-5 01/11/16 19:15 01/27/16 04:58 Heparin Sodium (Porcine) 2500 units 2,500 units UNSCH PRN IV APTT 25 TO 39 01/12/16 01:15 01/12/16 02:48 Heparin Sodium/ Dextrose (Heparin-D5W Inj) 250 ml @ 0 mls/hr TITRATE IV 01/11/16 19:15 01/26/16 06:12 Calcium Carbonate 500 mg 500 mg Q12HR CHEW 01/13/16 09:00 01/26/16 21:54 Ertapenem 1000 mg/ Sodium Chloride 100 ml @ 200 mls/hr Q24H IV 01/13/16 12:00 01/26/16 11:39 Cefazolin Sodium/ Dextrose (Ancef 2 Gm Premix) 50 ml @ 100 mls/hr Q8H IV 01/14/16 14:00 01/27/16 05:02 Atorvastatin Calcium (Lipitor) 40 mg HS PO 01/15/16 21:00 01/26/16 21:54 Amlodipine Besylate (Norvasc) 5 mg DAILY PO 01/15/16 09:45 01/26/16 08:56 Rifampin (Rifampin) 150 mg Q12HR PO 01/15/16 13:00 01/26/16 21:54 Potassium Chloride 30 meq 30 meq Q12HR PO 01/23/16 09:00 01/26/16 21:54 Sodium Bicarbonate/ Sodium Chloride (Sodium Bicarbonate 8.4% Inj/NS 1000 ml Inj) 1,100 ml @ 42 mls/hr Q24H IV 01/25/16 11:00 01/27/16 07:50 Insulin Detemir (Levemir Inj) 5 units HS SQ 01/26/16 21:45 01/26/16 22:10 Objective Remarks GENERAL: Cachetic appearing older male, lying in bed in no distress. SKIN: Warm and dry. Purpura noted to sole of R foot. HEAD: Normocephalic. EYES: No injection or drainage. NECK: Supple, trachea midline. CARDIOVASCULAR: +S1/S2. 4/6 murmur heard best over the R sternal border. RESPIRATORY: Lungs clear to auscultation, scattered rhonchi. No accessory muscle use. GASTROINTESTINAL: +BS. Non tender. EXTREMITIES: No edema. Posterior tibial with weakened pulse. Bilateral feet warm and dry. MUSCULOSKELETAL: Generalized weakness. NEUROLOGICAL: A&O. Normal speech. No obvious deficit. Assessment/Plan Problem List: (1) DVT (deep venous thrombosis) Status: Acute Plan: 01/27/16: Spoke with Dr. Stubbs's WAREHOUSING TECHNICIAN. No procedures are planned. We will start Coumadin at a low dose for DVT prevention (1mg po daily). Daily PT/INR. 01/24/16: INR improved to 1.2 today. continue heparin drip. await completion of all procedures before transitioning to oral therapy History --Right lower extremity deep venous thrombosis and right upper extremity deep venous thrombosis. --likely triggered by sepsis and immobility. --was laying on the floor for several hours the day prior to presentation. --also a possibility that he had a PICC line placed on the right upper extremity during his hospital stay at [facility] a week prior to presentation. --the thrombosis appeared to be provoked. (2) Sepsis Status: Resolved Plan: --d/t UTI and vascular graft --on multiple antibiotics. (3) Neurogenic bladder Status: Acute Plan: --urology following. --Neurogenic bladder with recurrent urinary tract infection. --has been self-catheterizing. (4) Vascular graft infection Status: Acute Plan: --CTS following Assessment 70y/o male with newly diagnosed DVT's, admitted with urosepsis. h/o Diabetes mellitus. Hepatitis C. He was receiving treatment at [facility]. Plan 1. Start pt on 1mg Coumadin po daily. 2. Daily PT/INR. 3. Heparin-Coumadin bridge. 4. Supportive care. Attending Statement The exam, history, and the medical decision-making described in the above note were completed with the assistance of the mid-level provider. I reviewed and agree with the findings presented. I attest that I had a [id number] encounter with the patient on the same day, and personally performed and documented my assessment and findings in the medical record. RLE tenderness stable, no edema. No more procedure per vascular surgery. Brii start coumadin at a low dose given he has vit K deficiency recently requiring Vit K supplement. Problem Qualifiers (1) DVT (deep venous thrombosis): Qualified Code: I82.431 - Deep vein thrombosis (DVT) of popliteal vein of right lower extremity, unspecified chronicity (2) Sepsis: Qualified Code: A41.01 - Sepsis due to Methicillin susceptible Staphylococcus aureus Jyotsna Boone Jan 27, 2016 11:22 Osbaldo Flowers MD Jan 27, 2016 15:13
[2016-01-27 12:00] VITALS: BP 143/84; PULSE 109; RESP 20; TEMP 97.6; O2SAT 96
[2016-01-27] MEDS: ERTAPENEM INJ 1,000 MG in SODIUM CHLORIDE 0.9% INJ 100 ML IV SCH (12:48)
[2016-01-27] MEDS: HEPARIN-D5W INJ 250 ML IV SCH ×2 (13:50→16:31)
[2016-01-27 16:00] VITALS: BP 141/85; PULSE 101; RESP 20; TEMP 99.3; O2SAT 95
[2016-01-27] MEDS: WARFARIN SOD 1 MG TAB PO SCH (16:32)
--- NOTE | 2016-01-27 18:47 | HHI.IDPN ---
Subjective Subjective Remarks is a 70 y/o CM with PMHx of HTN, DM, Hyperlipidemia and Neurogenic Bladder w/ Self Catheterization who was brought to the ER by EMS for c/o fever and elevated BS of 500 at home. Admitted with sepsis, now being evaluated and managed for MSSA bacteremia unclear source, ESBL and MSSA UTI in a patient that self caths at home. Overnight events reviewed. No fevers. UO ok No rash No diarrhea Much more talkative today. Antibiotics Ancef IV Ertapenem IV Rifampin oral Lines Line sites with no e/o infection. Past Medical History reviewed. Allergies: Coded Allergies: *MDRO Multi-Drug Resistant Organism (Verified Adverse Reaction, Unknown, 01/13/16) ESBL+E.Coli (urine-01/11/16) Objective . Vital Signs Date Time Temp Pulse Resp B/P Pulse Ox O2 Delivery O2 Flow Rate FiO2 01/27/16 16:00 99.3 101 20 141/85 95 01/27/16 12:00 97.6 109 20 143/84 96 01/27/16 08:00 98.8 102 20 141/78 96 01/27/16 05:38 18 01/27/16 04:00 97.0 105 19 146/90 99 01/27/16 00:00 96.9 106 17 150/87 95 01/26/16 20:00 99.2 107 18 151/76 96 01/26/16 01/26/16 01/27/16 14:59 22:59 06:59 Intake Total 849 ml 360 ml 60 ml Output Total 1000 ml 1000 ml 600 ml Balance -151 ml -640 ml -540 ml Intake Oral 240 ml 360 ml 60 ml IV Total 609 ml Output Urine Total 1000 ml 1000 ml 600 ml # Bowel Movements 0 0 0 . Laboratory Tests Test 01/26/16 01/27/16 05:00 06:50 White Blood Count 11.1 TH/MM3 11.9 TH/MM3 Red Blood Count 3.24 MIL/MM3 3.11 MIL/MM3 Hemoglobin 9.9 GM/DL 9.6 GM/DL Hematocrit 29.5 % 28.6 % Mean Corpuscular Volume 91.0 FL 91.9 FL Mean Corpuscular Hemoglobin 30.5 PG 30.9 PG Mean Corpuscular Hemoglobin 33.5 % 33.6 % Concent Red Cell Distribution Width 15.1 % 15.6 % Platelet Count 244 TH/MM3 224 TH/MM3 Mean Platelet Volume 8.2 FL 8.2 FL Neutrophils (%) (Auto) 78.2 % Lymphocytes (%) (Auto) 12.6 % Monocytes (%) (Auto) 8.2 % Eosinophils (%) (Auto) 0.5 % Basophils (%) (Auto) 0.5 % Neutrophils # (Auto) 9.3 TH/MM3 Lymphocytes # (Auto) 1.5 TH/MM3 Monocytes # (Auto) 1.0 TH/MM3 Eosinophils # (Auto) 0.1 TH/MM3 Basophils # (Auto) 0.1 TH/MM3 CBC Comment DIFF FINAL Differential Comment Laboratory Tests Test 01/26/16 01/27/16 05:00 06:50 Sodium Level 140 MEQ/L 141 MEQ/L Potassium Level 3.7 MEQ/L 4.0 MEQ/L Chloride Level 102 MEQ/L 105 MEQ/L Carbon Dioxide Level 29.1 MEQ/L 28.9 MEQ/L Anion Gap 9 MEQ/L 7 MEQ/L Blood Urea Nitrogen 19 MG/DL 19 MG/DL Creatinine 2.13 MG/DL 2.05 MG/DL Estimat Glomerular Filtration 31 ML/MIN 32 ML/MIN Rate Random Glucose 249 MG/DL 148 MG/DL Calcium Level 8.1 MG/DL 8.4 MG/DL Total Bilirubin 0.2 MG/DL Aspartate Amino Transf 12 U/L (AST/SGOT) Alanine Aminotransferase LESS THAN 6 U/L (ALT/SGPT) Alkaline Phosphatase 83 U/L Total Protein 6.2 GM/DL Albumin 1.3 GM/DL B-Type Natriuretic Peptide 133 PG/ML Microbiology Date/Time Procedure Status Source Growth 01/27/16 06:00 Urine Culture Received Urine Catheterized Urine Pending Imaging Last Impressions Myocardial Perfusion Scan Nuc Med 01/13/16 0000 Signed Impressions: Service Date/Time: Wednesday, January 13, 2016 10:52 - CONCLUSION: Small size, moderate severity nonreversible apical perfusion abnormality. RISK CATEGORY: Low (<1%% Annual Mortality Rate) Jayce Ham MD Shoulder X-Ray 01/12/16 0000 Signed Impressions: Service Date/Time: Tuesday, January 12, 2016 09:24 - CONCLUSION: 1. No acute fracture or subluxation of the left shoulder. 2. Probably an old fracture of the distal clavicle, healed. 3. 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 Jayce Ng MD Lower Extremity Ultrasound 01/11/16 1600 Signed Impressions: Service Date/Time: Monday, January 11, 2016 17:13 - CONCLUSION: 1. Nonocclusive thrombus in the popliteal vein and peroneal tributary. More central venous system is sonographically normal. 2. Tube like graft/stent in the right groin region with a surrounding hypoechoic region which does not show color Doppler flow. Diagnostic considerations include a thrombosed aneurysm treated with a covered stent/graft versus fluid around the regional vasculature. The latter would be concerning for possible perivascular infection. If patient's symptomatology is characteristic of an infectious or inflammatory process, CTA of the pelvis would be recommended for further characterization.. Carroll Arteaga MD Knee X-Ray 01/11/16 7835 Signed Impressions: Service Date/Time: Monday, January 11, 2016 16:43 - CONCLUSION: Small joint effusion. Jessica Blackburn MD Chest X-Ray 01/11/16 2763 Signed Impressions: Service Date/Time: Monday, January 11, 2016 16:40 - CONCLUSION: No acute cardiopulmonary disease. Jessica Blackburn MD Physical Exam GENERAL: Thin built, Under nourished, well developed patient, in no apparent distress. SKIN: No rashes. HEAD: Atraumatic. Normocephalic. No temporal or scalp tenderness. EYES: Pupils equal round and reactive. Extraocular motions intact. No scleral icterus. No injection or drainage. ENT: Nose without bleeding, purulent drainage or septal hematoma. Throat without erythema, tonsillar hypertrophy or exudate. Uvula midline. Airway patent. NECK: Trachea midline. Supple, nontender, no meningeal signs. CARDIOVASCULAR: RRR, murmur. RESPIRATORY: Clear to auscultation. Breath sounds equal bilaterally. GASTROINTESTINAL: Abdomen soft, tenderness noted in Suprapubic region. MUSCULOSKELETAL: RLE with significant swelling noted. Tender to touch. Slight erythema. Right foot plantar aspect with multiple septic emboli noted. NEUROLOGICAL: Awake and alert. Responds to questions but sluggish. Psych: cooperative IV line sites with no e.o infection Assessment & Plan Remarks Sepsis present on admission (patient was on antibiotics prior to admission ?). Fever, elevated WBC and bacteremia as source. MSSA bacteremia, endocarditis: ? 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 MSSA and ESBL E.coli UTI and Emphysematous Cystitis: Patient self catheterizes at home. Neurogenic bladder. Pneumonia Persistent bacteremia: likely source infected aneurysm seeding as organisms match. Acute metabolic encephalopathy: likely sepsis related improving. Acute renal failure: ? sepsis related, baseline not known. DM uncontrolled on admission. DVT Right LE Recent admission at [facility] as risk factor for infection. Recs Continue Ancef IV q8 hrs equivalent renal dose adjusted. Continue Ertapenem IV (ASP criteria: ESBL UTI/emphysematous cystitis present on admission in a patient that self catheterizes at home) Continue Rifampin oral (has a graft material in thigh) for now. CHUCHO negative but has evidence of septic emboli (likely showered all emboli to periphery) Suspect the RLE septic emboli are from right infected graft/aneurysm. Noted size and amount of fluid at aneurysm site is reduced. Will follow repeat UA. Also will d.w about emphysematous cystitis. Follow clinically. d/w patient and RN. Anali Beaver MD Jan 27, 2016 18:47 surgery but would like to proceed with surgery. Follow clinically. d/w patient and RN. d/w clinical pharmacist. Anali Beaver MD Jan 27, 2016 18:47
[2016-01-27] MEDS: ATORVASTATIN 40 MG TAB PO SCH (21:45)
[2016-01-27] MEDS: INSULIN DETEMIR 100 UNITS/ML VIAL SQ SCH (21:45)
[2016-01-27 22:00] VITALS: BP 155/93; PULSE 106; RESP 18; TEMP 98.9; O2SAT 96
--- NOTE | 2016-01-27 23:53 | HHI.PR ---
Subjective Remarks patient seen this afternoon around 1 PM.Lying in bed. Talkative. Awake, smiling a little. Denies any pain. Objective Vital Signs Date Time Temp Pulse Resp B/P Pulse Ox O2 Delivery O2 Flow Rate FiO2 01/27/16 22:00 98.9 106 18 155/93 96 01/27/16 16:00 99.3 101 20 141/85 95 01/27/16 12:00 97.6 109 20 143/84 96 01/27/16 08:00 98.8 102 20 141/78 96 01/27/16 05:38 18 01/27/16 04:00 97.0 105 19 146/90 99 01/27/16 00:00 96.9 106 17 150/87 95 I/O 01/26/16 01/26/16 01/26/16 01/27/16 01/27/16 01/27/16 07:00 15:00 23:00 07:00 15:00 23:00 Intake Total 240 ml 849 ml 360 ml 60 ml 450 ml Output Total 900 ml 1000 ml 1000 ml 600 ml 800 ml 700 ml Balance -660 ml -151 ml -640 ml -540 ml -350 ml -700 ml Intake Oral 240 ml 240 ml 360 ml 60 ml 450 ml IV Total 609 ml Output Urine Total 900 ml 1000 ml 1000 ml 600 ml 800 ml 700 ml # Bowel Movements 0 0 0 0 Result Diagram: 01/27/16 0650 01/27/16 0650 Objective Remarks GENERAL: Thin 70-year-old male. Lying in bed. No acute distress.smiling a little today. appears to have been drinking more ensure. SKIN: Warm and dry. HEAD: Normocephalic. EYES: No scleral icterus. No injection or drainage. NECK: Supple, trachea midline. No JVD. CARDIOVASCULAR: Regular rate and rhythm without murmurs, gallops, or rubs. RESPIRATORY: Breath sounds equal bilaterally. No accessory muscle use. GASTROINTESTINAL: Abdomen soft, non-tender, nondistended. MUSCULOSKELETAL: No cyanosis. trace right lower extremity edemamuch improved from previously.. Patient has multiple non-confluent subcentimeter nonblanching purpuric macules on the plantar surface of the right foot as before. No change. BACK: Nontender without obvious deformity. No CVA tenderness. A/P Assessment and Plan 12/16. Pending Doppler ultrasound of right femoropopliteal stent. Continue antibiotics as per infectious disease. Potassium appears repleted. Have ordered dietary consult for malnutrition. 01/24. Right femoropopliteal stent with decrease in perianastomotic fluid collection on ultrasound. Appreciate dietary recommendations. Continue antibiotics as per infectious disease. 01/25. Slight increase in creatinine. We'll continue to monitor. Still very well below creatinine on admission. Glucose elevated. Will add Levemir 5 units nightly 01/26. Cloudy urine. Urinalysis and culture ordered by infectious disease. Will follow. Kidney function is stable. Glucose relatively stable today. Will consider increasing coverage tomorrow if still elevated. Patient appears to be doing well with liberalized diet. 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 - Dr. Alvarenga on consult for second opinion and has offered surgery, patient now stating he would like to stay at [place] for surgery, however surgery on hold as there is now a question of patient's capacity as his mental status waxes and wanes as well as family's understanding of risks/benefits of proceeding with surgery, as patient has multiple other underlying serious infections and is clearly high risk for surgery. -Palliative care following to help facilitate goals of care and family communication. - Appreciate vascular surgery assistance -Cont rifampin and IV antibiotics/cefazolin as per Dr. Lee Beaver. //Severe emphysematous UTI (recurrent or worsening as compared to previous CT done 09/2014) - with air in the extraperitoneal pelvis suggestive of possible developing fistula or bladder perforation. Urine cx growing E. Coli ESBL and staph aureus. -Plan is to continue paul and antibiotics for some weeks and repeat CT in 2 weeks as usually extraperitoneal bladder perforation will heal on their own. -The patient is on ertapenem start date 01/12 for this infection. - Appreciate infectious disease and urology assistance. Continue with Paul. Continue antibiotics as per infectious disease. -01/26 repeat urinalysis/culture pending // Acute metabolic encephalopathy //Hospital delirium - improving at times, however patient's daughter states he is nowhere near baseline.\\ -CT head 01/20 with no acute intracranial abnormality -Altered mental status most certainly secondary to systemic infection. No indication of meningitis or septic embolic stroke - improving with treatment of underlying medical illnesses. Cont ST. continue to monitor mental status. // Severe, persistent hypokalemia Appears improved after replacement.- -- continue repletion 30 meq Po BID. -repeat BMP in a.m. //Chronic urinary retention possibly due to neurogenic bladder - self catheterizes at home. Continue paul as per urology. - Appreciate urology assistance. //Acute on Chronic kidney injury: -Creatinine 3.55 on admission. -Improved. Creatinine 2. Relatively stable. on IVF. Continue to monitor renal function. // Rhabdomyolysis - resolved. PT/OT following. OT does recommend inpatient rehab. //Elevated Trop: Trop 0.07, EKG w/ no acute changes. Likely secondary to worsening renal function. ECHO which showed EF 55-60%. stress test showed " Small size, moderate severity nonreversible apical perfusion abnormality, low risk". Appreciate cardiology input. // DM type 2: Uncontrolled. -Hgb A1c 8.0. - Relatively well controlled in hospital. -Continue sliding scale w/ Accu-Cheks. -Continue to monitor. 01/25. Glucose elevated.likely secondary to liberalize diet. Patient eating a lot of popsicles, but glad he is eating.. Will add Levemir 5 units nightly // DVT of right upper popliteal and peroneal tributary, and of right upper extremity in the brachial vein. -Continue heparin drip until able to bridge to coumadin. -Will need at least 3 months AC for provoked DVT, appreciate hematology input. // Left elbow swelling: Orthopedic evaluated pt, CT elbow negative for effusion or abscess. Appreciate assistance. //Severe protein calorie malnutrition. - 01/24. Appreciate dietary recommendations. Start 2500-calorie diabetic diet. Glucerna shakes 3 times a day //DVT prophylaxis. Patient is on therapeutic treatment for DVT. 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 -Physical therapy recommends rehabilitation. -Appreciate case management assistance. Carlos Bustillo MD Jan 27, 2016 23:53
[2016-01-28] VITALS (7 sets, daily range): BP systolic 119–199; BP diastolic 79–126; PULSE 93–114; RESP 16–18; TEMP 97.1–100.2; O2SAT 94–97
[2016-01-28] MEDS: ceFAZolin 2 GM PREMIX 50 ML IV SCH ×3 (04:58→21:50)
[2016-01-28] MEDS: INSULIN ASPART SUPPLEMENTAL SCALE SQ SCH ×4 (05:35→21:52)
[2016-01-28 06:06] LABS: AUTOMATED NEUTROPHIL # 8.1 TH/MM3 (1.8-7.7); BASOPHIL # 0.1 TH/MM3 (0-0.2); BASOPHIL % 0.6 % (0.0-2.0); EOSINOPHIL # 0.1 TH/MM3 (0-0.4); EOSINOPHIL % 0.7 % (0.0-4.0); HEMATOCRIT 29.4 % (39.0-51.0); HEMO FLAGS DIFF FINAL; LYMPH % 16.4 % (9.0-44.0); LYMPHOCYTE # 1.8 TH/MM3 (1.0-4.8); MEAN CORPUSCULAR HEMOGLOBIN 30.6 PG (27.0-34.0); MEAN CORPUSCULAR HGB CONC 33.7 % (32.0-36.0); MONO % 7.8 % (0.0-8.0); NEUT % 74.5 % (16.0-70.0); PLATELET COUNT 216 TH/MM3 (150-450); RED BLOOD COUNT 3.23 MIL/MM3 (4.50-5.90); RED CELL DISTRIBUTION WIDTH 15.7 % (11.6-17.2); WHITE BLOOD COUNT 10.9 TH/MM3 (4.0-11.0)
[2016-01-28 06:18] LABS: INTERNATIONAL NORMALIZED RATIO 1.3 RATIO
[2016-01-28 06:23] LABS: BICARBONATE 29.3 MEQ/L (21.0-32.0); POTASSIUM 3.8 MEQ/L (3.5-5.1)
[2016-01-28] MEDS: SODIUM CHLORIDE 0.9% FLUSH 5 ML FLUSH FLUSH SCH ×2 (09:00→21:50)
[2016-01-28] MEDS: amLODIPine BESYLATE 5 MG TAB PO SCH (09:29)
[2016-01-28] MEDS: CALCIUM CARBONATE 500 MG CHEWABLE TAB CHEW SCH ×2 (09:29→21:49)
[2016-01-28] MEDS: POTASSIUM CHLORIDE 10 MEQ CONTROLLED RELEASE TAB PO SCH ×2 (09:29→21:49)
[2016-01-28] MEDS: RIFAMPIN 150 MG CAP PO SCH ×2 (09:29→21:49)
[2016-01-28] MEDS: ACETAMINOPHEN/HYDROcodone 325 MG/5 MG TAB PO PRN ×2 (09:29→14:57)
[2016-01-28 09:32] LABS: APTT (PATIENT) 33.1 SEC (24.3-30.1)
[2016-01-28] MEDS: LACTATED RINGER'S 1000 ML IV SCH (11:00)
--- NOTE | 2016-01-28 11:16 | HHI.PR ---
Subjective Remarks Pt seen and examined. Feeling better. Urine clear. Objective Vital Signs Vital Signs Date Time Temp Pulse Resp B/P Pulse Ox O2 Delivery O2 Flow Rate FiO2 01/28/16 08:00 100.2 105 18 119/83 95 01/28/16 05:30 99.4 108 18 142/81 94 01/28/16 02:00 97.1 93 18 175/91 94 01/27/16 22:00 98.9 106 18 155/93 96 01/27/16 16:00 99.3 101 20 141/85 95 01/27/16 12:00 97.6 109 20 143/84 96 I/O 01/27/16 01/27/16 01/27/16 01/28/16 01/28/16 01/28/16 06:59 14:59 22:59 06:59 14:59 22:59 Intake Total 60 ml 450 ml 1770 ml Output Total 600 ml 800 ml 700 ml 1000 ml Balance -540 ml -350 ml -700 ml 770 ml Intake Oral 60 ml 450 ml 240 ml IV Total 1530 ml Output Urine Total 600 ml 800 ml 700 ml 1000 ml # Bowel Movements 0 Result Diagram: 01/28/1615 01/28/16514 Objective Remarks Abd: soft,nt,nd Paul with some sediment Ext: Right LE edema 01/16 Abd: soft,nt,nd Paul with some sediment 01/19 Abd:soft,nt,nd Paul with clear urine 01/20 Abd:soft,nt,nd Paul with clear urine 01/21 Abd:soft,nt,nd Paul with clear urine 01/23 Abd: soft,nt,nd Paul with some sediment 01/27 Abd:soft,nt,nd Paul with clear urine Assessment and Plan Assessment and Plan 70 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 Continue IV ABX Will perform another imaging study in 1-2 weeks. 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 01/19 70 y.o male with sepsis and atonic/neurogenic bladder with emphysematous cystitis Continue IV ABx Maintain paul catheter for now Repeat Imagining study in future 01/20 70 y.o male with sepsis and atonic/neurogenic bladder with emphysematous cystitis Maintain paul Repeat imagining study later in week 01/21 70 y.o male with sepsis and atonic/neurogenic bladder with emphysematous cystitis Maintain paul Plan for CT scan tomorrow to reevaluate bladder 01/23 70 y.o male with sepsis and atonic/neurogenic bladder with emphysematous cystitis Maintain paul for now Continue Abx OOB/Rehab 01/27 70 y.o male with sepsis and atonic/neurogenic bladder with emphysematous cystitis Maintain paul Stable for discharge from standpoint Recommend SP tube in future as outpt. Crescencio Lopez DO Jan 28, 2016 11:16
[2016-01-28] MEDS: ERTAPENEM INJ 1,000 MG in SODIUM CHLORIDE 0.9% INJ 100 ML IV SCH (12:12)
[2016-01-28] MEDS: ENALAPRILAT 1.25 MG/ML VIAL IV PUSH PRN (12:30)
--- NOTE | 2016-01-28 12:42 | PD.CAR.PN ---
CVT Progress Note Subjective/Hospital Course: Pt alert today, Tolerating some diet Objective: Vital Signs Date Time Temp Pulse Resp B/P Pulse Ox O2 Delivery O2 Flow Rate FiO2 01/28/16 08:00 100.2 105 18 119/83 95 01/28/16 05:30 99.4 108 18 142/81 94 01/28/16 02:00 97.1 93 18 175/91 94 01/27/16 22:00 98.9 106 18 155/93 96 01/27/16 16:00 99.3 101 20 141/85 95 Labs: Laboratory Tests Test 01/28/16 01/28/16 05:15 08:54 White Blood Count 10.9 TH/MM3 (4.0-11.0) Red Blood Count 3.23 MIL/MM3 (4.50-5.90) Hemoglobin 9.9 GM/DL (13.0-17.0) Hematocrit 29.4 % (39.0-51.0) Mean Corpuscular Volume 91.0 FL (80.0-100.0) Mean Corpuscular Hemoglobin 30.6 PG (27.0-34.0) Mean Corpuscular Hemoglobin 33.7 % Concent (32.0-36.0) Red Cell Distribution Width 15.7 % (11.6-17.2) Platelet Count 216 TH/MM3 (150-450) Mean Platelet Volume 8.4 FL (7.0-11.0) Neutrophils (%) (Auto) 74.5 % (16.0-70.0) Lymphocytes (%) (Auto) 16.4 % (9.0-44.0) Monocytes (%) (Auto) 7.8 % (0.0-8.0) Eosinophils (%) (Auto) 0.7 % (0.0-4.0) Basophils (%) (Auto) 0.6 % (0.0-2.0) Neutrophils # (Auto) 8.1 TH/MM3 (1.8-7.7) Lymphocytes # (Auto) 1.8 TH/MM3 (1.0-4.8) Monocytes # (Auto) 0.8 TH/MM3 (0-0.9) Eosinophils # (Auto) 0.1 TH/MM3 (0-0.4) Basophils # (Auto) 0.1 TH/MM3 (0-0.2) CBC Comment DIFF FINAL Differential Comment Prothrombin Time 14.0 SEC (9.8-11.6) Prothromb Time International 1.3 RATIO Ratio Sodium Level 142 MEQ/L (136-145) Potassium Level 3.8 MEQ/L (3.5-5.1) Chloride Level 106 MEQ/L (98-107) Carbon Dioxide Level 29.3 MEQ/L (21.0-32.0) Anion Gap 7 MEQ/L (5-15) Blood Urea Nitrogen 22 MG/DL (7-18) Creatinine 2.08 MG/DL (0.60-1.30) Estimat Glomerular Filtration 32 ML/MIN (>89) Rate Random Glucose 165 MG/DL (74-106) Calcium Level 8.2 MG/DL (8.5-10.1) Activated Partial 33.1 SEC Thromboplast Time (24.3-30.1) Result Diagram: 01/28/16 0515 01/28/16 0515 Cardiovascular: R leg without fluctuance and incisions intact Plan: 1. No indication for graft excision given normalization of WBC, overall appearance of leg, and decrease in fluid around graft. However, should stay on antibiotics for MSSA (culture driven), which likely represents secondary infection of bypass. I have arranged f/u in my clinic on Feb 28, 2016 with a repeat graft scan 2. I would encourage nutrition and recommend DHT feeds given albumin 1.3. Jeremie Stubbs MD Jan 28, 2016 12:42
--- NOTE | 2016-01-28 14:04 | PD.ONC.PN ---
Subjective Subjective Remarks Tmax 100.2 overnight. Patient resting comfortably without complaint. Tolerating heparin and coumadin. No reported bleeding. Objective Data Date Time Temp Pulse Resp B/P Pulse Ox O2 Delivery O2 Flow Rate FiO2 01/28/16 13:40 161/92 01/28/16 12:00 97.6 114 17 199/126 95 01/28/16 08:00 100.2 105 18 119/83 95 01/28/16 05:30 99.4 108 18 142/81 94 01/28/16 02:00 97.1 93 18 175/91 94 01/27/16 22:00 98.9 106 18 155/93 96 01/27/16 16:00 99.3 101 20 141/85 95 01/28/16 01/28/16 01/28/16 07:00 15:00 23:00 Intake Total 1770 ml Output Total 1000 ml Balance 770 ml Result Diagram: 01/28/16 0515 01/28/16 0515 Laboratory Results Laboratory Tests Test 01/28/16 01/28/16 05:15 08:54 White Blood Count 10.9 TH/MM3 Red Blood Count 3.23 MIL/MM3 Hemoglobin 9.9 GM/DL Hematocrit 29.4 % Mean Corpuscular Volume 91.0 FL Mean Corpuscular Hemoglobin 30.6 PG Mean Corpuscular Hemoglobin 33.7 % Concent Red Cell Distribution Width 15.7 % Platelet Count 216 TH/MM3 Mean Platelet Volume 8.4 FL Neutrophils (%) (Auto) 74.5 % Lymphocytes (%) (Auto) 16.4 % Monocytes (%) (Auto) 7.8 % Eosinophils (%) (Auto) 0.7 % Basophils (%) (Auto) 0.6 % Neutrophils # (Auto) 8.1 TH/MM3 Lymphocytes # (Auto) 1.8 TH/MM3 Monocytes # (Auto) 0.8 TH/MM3 Eosinophils # (Auto) 0.1 TH/MM3 Basophils # (Auto) 0.1 TH/MM3 CBC Comment DIFF FINAL Differential Comment Prothrombin Time 14.0 SEC Prothromb Time International 1.3 RATIO Ratio Sodium Level 142 MEQ/L Potassium Level 3.8 MEQ/L Chloride Level 106 MEQ/L Carbon Dioxide Level 29.3 MEQ/L Anion Gap 7 MEQ/L Blood Urea Nitrogen 22 MG/DL Creatinine 2.08 MG/DL Estimat Glomerular Filtration 32 ML/MIN Rate Random Glucose 165 MG/DL Calcium Level 8.2 MG/DL Activated Partial 33.1 SEC Thromboplast Time Culture Results Microbiology Date/Time Procedure Status Source Growth 01/27/16 06:00 Urine Culture Received Urine Catheterized Urine Pending Administered Medications Medications (Trade) Dose Ordered Sig/Smith Route PRN Reason Start Time Stop Time Status Last Admin Dose Admin IV Flush (NS Flush) 2 ml BID FLUSH 01/11/16 21:00 01/27/16 21:46 Acetaminophen (Tylenol) 650 mg Q4H PRN PO FEVER/PAIN 1-2 01/11/16 18:45 01/14/16 18:25 Acetaminophen/ Hydrocodone Bitart ([place] 5-325 Mg) 1 tab Q4H PRN PO PAIN 3-5 01/11/16 19:15 01/28/16 09:29 Heparin Sodium (Porcine) 2500 units 2,500 units UNSCH PRN IV APTT 25 TO 39 01/12/16 01:15 01/12/16 02:48 Heparin Sodium/ Dextrose (Heparin-D5W Inj) 250 ml @ 0 mls/hr TITRATE IV 01/11/16 19:15 01/27/16 16:31 Calcium Carbonate 500 mg 500 mg Q12HR CHEW 01/13/16 09:00 01/28/16 09:29 Ertapenem 1000 mg/ Sodium Chloride 100 ml @ 200 mls/hr Q24H IV 01/13/16 12:00 01/28/16 12:12 Cefazolin Sodium/ Dextrose (Ancef 2 Gm Premix) 50 ml @ 100 mls/hr Q8H IV 01/14/16 14:00 01/28/16 04:58 Atorvastatin Calcium (Lipitor) 40 mg HS PO 01/15/16 21:00 01/27/16 21:45 Amlodipine Besylate (Norvasc) 5 mg DAILY PO 01/15/16 09:45 01/28/16 09:29 Rifampin (Rifampin) 150 mg Q12HR PO 01/15/16 13:00 01/28/16 09:29 Potassium Chloride (KCl) 30 meq Q12HR PO 01/23/16 09:00 01/28/16 09:29 Enalaprilat 1.25 mg 1.25 mg Q6H PRN IV PUSH SBP> OR = 180, DBP> OR = 100 01/23/16 13:15 01/28/16 12:30 Sodium Bicarbonate/ Sodium Chloride (Sodium Bicarbonate 8.4% Inj/NS 1000 ml Inj) 1,100 ml @ 42 mls/hr Q24H IV 01/25/16 11:00 01/27/16 07:50 Insulin Detemir (Levemir Inj) 5 units HS SQ 01/26/16 21:45 01/27/16 21:45 Warfarin Sodium (Coumadin) 1 mg DAILY@16 PO 01/27/16 16:00 01/27/16 16:32 Objective Remarks GENERAL: Elderly male, lying in bed, resting. SKIN: Warm and dry. HEAD: Normocephalic. EYES: No injection or drainage. NECK: Supple, trachea midline. CARDIOVASCULAR: +S1/S2. RESPIRATORY: occasional rhonchi, anteiror feng. GASTROINTESTINAL: soft, non tender. EXTREMITIES: No edema. MUSCULOSKELETAL: Generalized weakness. NEUROLOGICAL: sleeping on approach but easily awakened. moving extremities. Assessment/Plan Problem List: (1) DVT (deep venous thrombosis) Status: Acute Plan: 01/28/16: continue heparin bridge to coumadin. d/w Dr. Bustillo, [facility], they will continue to monitor bridge (will consult pharmacy for assistance) 01/27/16: Spoke with Dr. Stubbs's [employer]. No procedures are planned. We will start Coumadin at a low dose for DVT prevention (1mg po daily). Daily PT/INR. 01/24/16: INR improved to 1.2 today. continue heparin drip. await completion of all procedures before transitioning to oral therapy History --Right lower extremity deep venous thrombosis and right upper extremity deep venous thrombosis. --likely triggered by sepsis and immobility. --was laying on the floor for several hours the day prior to presentation. --also a possibility that he had a PICC line placed on the right upper extremity during his hospital stay at [facility] a week prior to presentation. --the thrombosis appeared to be provoked. (2) Sepsis Status: Resolved Plan: --d/t UTI and vascular graft --on multiple antibiotics. (3) Neurogenic bladder Status: Acute Plan: --urology following. --Neurogenic bladder with recurrent urinary tract infection. --has been self-catheterizing. (4) Vascular graft infection Status: Acute Plan: --CTS following Assessment 70y/o male with newly diagnosed DVT's, admitted with urosepsis. h/o Diabetes mellitus. Hepatitis C. He was receiving treatment at [facility]. Plan 1. continue heparin bridge to coumadin 2. monitor INR 3. consult pharmacy Attending Statement The exam, history, and the medical decision-making described in the above note were completed with the assistance of the mid-level provider. I reviewed and agree with the findings presented. I attest that I had a [id number] encounter with the patient on the same day, and personally performed and documented my assessment and findings in the medical record. No LE edema. Tolerating heparin. No bleeding. Started on low dose coumadin. Stop heparin when INR >2. Problem Qualifiers (1) DVT (deep venous thrombosis): Qualified Code: I82.431 - Deep vein thrombosis (DVT) of popliteal vein of right lower extremity, unspecified chronicity (2) Sepsis: Qualified Code: A41.01 - Sepsis due to Methicillin susceptible Staphylococcus aureus Rukhsana Esquivel Jan 28, 2016 14:03 Osbaldo Flowers MD Jan 28, 2016 14:08
[2016-01-28] MEDS: SODIUM BICARBONATE 8.4% INJ 100 MEQ in SODIUM CHLOR 0.9% 1000 ML INJ 1,000 ML IV SCH (14:31)
[2016-01-28] MEDS: WARFARIN SOD 1 MG TAB PO SCH (17:18)
[2016-01-28] MEDS: ATORVASTATIN 40 MG TAB PO SCH (21:49)
[2016-01-28] MEDS: INSULIN DETEMIR 100 UNITS/ML VIAL SQ SCH (21:52)
[2016-01-28 23:01] LABS: APTT (PATIENT) 45.2 SEC (24.3-30.1)
--- NOTE | 2016-01-28 23:42 | HHI.PR ---
Subjective Remarks patient seen this morning around 11 AM. Patient sitting up in recliner. Says he is comfortable. Denies any chest pain or shortness of breath. Discussed with infectious disease. Recommend going on course of ertapenem, Ancef. For 2 more weeks. 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 Appreciate assistance. Objective Vital Signs Date Time Temp Pulse Resp B/P Pulse Ox O2 Delivery O2 Flow Rate FiO2 01/28/16 21:15 99.8 105 18 152/87 97 01/28/16 16:00 99.2 109 16 174/79 95 01/28/16 13:40 161/92 01/28/16 12:00 97.6 114 17 199/126 95 01/28/16 08:00 100.2 105 18 119/83 95 01/28/16 05:30 99.4 108 18 142/81 94 01/28/16 02:00 97.1 93 18 175/91 94 I/O 01/27/16 01/27/16 01/27/16 01/28/16 01/28/16 01/28/16 07:00 15:00 23:00 07:00 15:00 23:00 Intake Total 60 ml 450 ml 1770 ml 960 ml 400 ml Output Total 600 ml 800 ml 700 ml 1000 ml 1175 ml Balance -540 ml -350 ml -700 ml 770 ml -215 ml 400 ml Intake Oral 60 ml 450 ml 240 ml 960 ml IV Total 1530 ml 400 ml Output Urine Total 600 ml 800 ml 700 ml 1000 ml 1175 ml # Bowel Movements 0 1 Result Diagram: 01/28/1615 01/28/1615 Objective Remarks GENERAL: Thin 70-year-old male. sitting up in chair. No acute distress. has been eating. SKIN: Warm and dry. HEAD: Normocephalic. EYES: No scleral icterus. No injection or drainage. NECK: Supple, trachea midline. No JVD. CARDIOVASCULAR: Regular rate and rhythm without murmurs, gallops, or rubs. RESPIRATORY: Breath sounds equal bilaterally. No accessory muscle use. GASTROINTESTINAL: Abdomen soft, non-tender, nondistended. MUSCULOSKELETAL: No cyanosis. trace right lower extremity edema Patient has multiple non-confluent subcentimeter nonblanching purpuric macules on the plantar surface of the right foot as before. No change. BACK: Nontender without obvious deformity. No CVA tenderness. A/P Assessment and Plan 01/23. Pending Doppler ultrasound of right femoropopliteal stent. Continue antibiotics as per infectious disease. Potassium appears repleted. Have ordered dietary consult for malnutrition. 01/24. Right femoropopliteal stent with decrease in perianastomotic fluid collection on ultrasound. Appreciate dietary recommendations. Continue antibiotics as per infectious disease. 01/25. Slight increase in creatinine. We'll continue to monitor. Still very well below creatinine on admission. Glucose elevated. Will add Levemir 5 units nightly 01/26. Cloudy urine. Urinalysis and culture ordered by infectious disease. Will follow. Kidney function is stable. Glucose relatively stable today. Will consider increasing coverage tomorrow if still elevated. Patient appears to be doing well with liberalized diet. 01/27. Continue to wait for INR to be therapeutic. Urinalysis pending. Continue antibiotics as per infectious disease. 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 - Dr. Alvarenga on consult for second opinion and has offered surgery, patient now stating he would like to stay at [facility] for surgery, however surgery on hold as there is now a question of patient's capacity as his mental status waxes and wanes as well as family's understanding of risks/benefits of proceeding with surgery, as patient has multiple other underlying serious infections and is clearly high risk for surgery. -Palliative care following to help facilitate goals of care and family communication. - Appreciate vascular surgery assistance. No surgery at this time. -Cont rifampin and IV antibiotics As per Dr. Lee Beaver. //Severe emphysematous UTI (recurrent or worsening as compared to previous CT done 09/2014) - with air in the extraperitoneal pelvis suggestive of possible developing fistula or bladder perforation. Urine cx growing E. Coli ESBL and staph aureus. -Plan is to continue paul and antibiotics for some weeks and repeat CT in 2 weeks as usually extraperitoneal bladder perforation will heal on their own. -The patient is on ertapenem start date 01/12 for this infection. - Appreciate infectious disease and urology assistance. Continue with Paul. Continue antibiotics as per infectious disease. -01/26 repeat urinalysis/culture pending // Acute metabolic encephalopathy //Hospital delirium - improving at times, however patient's daughter states he is nowhere near baseline.\\ -CT head 01/20 with no acute intracranial abnormality -Altered mental status most certainly secondary to systemic infection. No indication of meningitis or septic embolic stroke - improving with treatment of underlying medical illnesses. Cont ST. continue to monitor mental status. // Severe, persistent hypokalemia Appears improved after replacement.- -- continue repletion 30 meq Po BID. -repeat BMP in a.m. //Chronic urinary retention possibly due to neurogenic bladder - self catheterizes at home. Continue paul as per urology. - Appreciate urology assistance. //Acute on Chronic kidney injury: -Creatinine 3.55 on admission. -Improved. Creatinine 2. Relatively stable. on IVF. Continue to monitor renal function. // Rhabdomyolysis - resolved. PT/OT following. OT does recommend inpatient rehab. //Elevated Trop: Trop 0.07, EKG w/ no acute changes. Likely secondary to worsening renal function. ECHO which showed EF 55-60%. stress test showed " Small size, moderate severity nonreversible apical perfusion abnormality, low risk". Appreciate cardiology input. // DM type 2: Uncontrolled. -Hgb A1c 8.0. - Relatively well controlled in hospital. -Continue sliding scale w/ Accu-Cheks. -Continue to monitor. 01/25. Glucose elevated.likely secondary to liberalize diet. Patient eating a lot of popsicles, but glad he is eating.. Will add Levemir 5 units nightly // DVT of right upper popliteal and peroneal tributary, and of right upper extremity in the brachial vein. -Continue heparin drip until able to bridge to coumadin. -Will need at least 3 months AC for provoked DVT, appreciate hematology input. // Left elbow swelling: Orthopedic evaluated pt, CT elbow negative for effusion or abscess. Appreciate assistance. //Severe protein calorie malnutrition. - 01/24. Appreciate dietary recommendations. Start 2500-calorie diabetic diet. Glucerna shakes 3 times a day //DVT prophylaxis. Patient is on therapeutic treatment for DVT. 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 -Physical therapy recommends rehabilitation. -Appreciate case management assistance. Carlos Bustillo MD Jan 28, 2016 23:42
[2016-01-29 01:15] VITALS: BP 148/82; PULSE 106; RESP 18; TEMP 98.6; O2SAT 96
[2016-01-29 05:00] VITALS: BP 149/89; PULSE 103; RESP 18; TEMP 99.1; O2SAT 97
[2016-01-29] MEDS: INSULIN ASPART SUPPLEMENTAL SCALE SQ SCH ×4 (05:10→22:56)
[2016-01-29] MEDS: ceFAZolin 2 GM PREMIX 50 ML IV SCH ×3 (05:10→22:40)
[2016-01-29 07:24] LABS: MEAN CELL VOLUME 91.1 FL (80.0-100.0); PLATELET COUNT 199 TH/MM3 (150-450); RED CELL DISTRIBUTION WIDTH 16.4 % (11.6-17.2); REVIEW FLAG FINAL; WHITE BLOOD COUNT 10.6 TH/MM3 (4.0-11.0)
[2016-01-29 07:34] LABS: APTT (PATIENT) 61.3 SEC (24.3-30.1)
[2016-01-29 08:00] VITALS: BP 171/92; PULSE 106; RESP 18; TEMP 99.2; O2SAT 96
[2016-01-29] MEDS: SODIUM CHLORIDE 0.9% FLUSH 5 ML FLUSH FLUSH SCH ×2 (09:00→22:37)
[2016-01-29] MEDS: CALCIUM CARBONATE 500 MG CHEWABLE TAB CHEW SCH ×2 (09:44→22:37)
[2016-01-29] MEDS: amLODIPine BESYLATE 5 MG TAB PO SCH (09:45)
[2016-01-29] MEDS: RIFAMPIN 150 MG CAP PO SCH ×2 (09:45→22:37)
[2016-01-29] MEDS: POTASSIUM CHLORIDE 10 MEQ CONTROLLED RELEASE TAB PO SCH ×2 (09:45→22:37)
[2016-01-29] MEDS: ACETAMINOPHEN/HYDROcodone 325 MG/5 MG TAB PO PRN ×3 (09:45→22:56)
[2016-01-29] MEDS: LACTATED RINGER'S 1000 ML IV SCH (11:00)
[2016-01-29] MEDS: SODIUM BICARBONATE 8.4% INJ 100 MEQ in SODIUM CHLOR 0.9% 1000 ML INJ 1,000 ML IV SCH (11:00)
[2016-01-29] MEDS: HEPARIN-D5W INJ 250 ML IV SCH (11:34)
[2016-01-29 11:48] LABS: INTERNATIONAL NORMALIZED RATIO 1.2 RATIO; PROTHROMBIN TIME - PATIENT 13.7 SEC (9.8-11.6)
[2016-01-29 12:00] VITALS: BP 130/78; PULSE 107; RESP 16; TEMP 99.2; O2SAT 97
[2016-01-29] MEDS: ERTAPENEM INJ 1,000 MG in SODIUM CHLORIDE 0.9% INJ 100 ML IV SCH (12:26)
[2016-01-29 16:00] VITALS: BP 142/82; PULSE 108; RESP 16; TEMP 99.2; O2SAT 97
[2016-01-29] MEDS ORDERED: WARFARIN SOD 1 MG TAB PO SCH (16:00)
[2016-01-29] MEDS: WARFARIN SOD 1 MG TAB PO SCH (17:19)
--- NOTE | 2016-01-29 19:26 | HHI.IDPN ---
Subjective Subjective Remarks is a 70 y/o CM with PMHx of HTN, DM, Hyperlipidemia and Neurogenic Bladder w/ Self Catheterization who was brought to the ER by EMS for c/o fever and elevated BS of 500 at home. Admitted with sepsis, now being evaluated and managed for MSSA bacteremia unclear source, ESBL and MSSA UTI in a patient that self caths at home. Overnight events reviewed. No fevers. UO ok No rash No diarrhea Patient daughter in room. Answered all questions to her satisfaction. Antibiotics Ancef IV Ertapenem IV Rifampin oral Lines Line sites with no e/o infection. Past Medical History reviewed. Allergies: Coded Allergies: *MDRO Multi-Drug Resistant Organism (Verified Adverse Reaction, Unknown, 01/13/16) ESBL+E.Coli (urine-01/11/16) Objective . Vital Signs Date Time Temp Pulse Resp B/P Pulse Ox O2 Delivery O2 Flow Rate FiO2 01/29/16 16:00 99.2 108 16 142/82 97 01/29/16 12:00 99.2 107 16 130/78 97 01/29/16 08:00 99.2 106 18 171/92 96 01/29/16 05:00 99.1 103 18 149/89 97 01/29/16 01:15 98.6 106 18 148/82 96 01/28/16 21:15 99.8 105 18 152/87 97 01/28/16 01/28/16 01/29/16 15:00 23:00 07:00 Intake Total 960 ml 400 ml Output Total 1175 ml 800 ml Balance -215 ml -400 ml Intake Oral 960 ml IV Total 400 ml Output Urine Total 1175 ml 800 ml # Bowel Movements 1 . Laboratory Tests Test 01/28/16 01/29/16 05:15 06:11 White Blood Count 10.9 TH/MM3 10.6 TH/MM3 Red Blood Count 3.23 MIL/MM3 3.40 MIL/MM3 Hemoglobin 9.9 GM/DL 10.5 GM/DL Hematocrit 29.4 % 31.0 % Mean Corpuscular Volume 91.0 FL 91.1 FL Mean Corpuscular Hemoglobin 30.6 PG 31.0 PG Mean Corpuscular Hemoglobin 33.7 % 34.0 % Concent Red Cell Distribution Width 15.7 % 16.4 % Platelet Count 216 TH/MM3 199 TH/MM3 Mean Platelet Volume 8.4 FL 8.2 FL Neutrophils (%) (Auto) 74.5 % Lymphocytes (%) (Auto) 16.4 % Monocytes (%) (Auto) 7.8 % Eosinophils (%) (Auto) 0.7 % Basophils (%) (Auto) 0.6 % Neutrophils # (Auto) 8.1 TH/MM3 Lymphocytes # (Auto) 1.8 TH/MM3 Monocytes # (Auto) 0.8 TH/MM3 Eosinophils # (Auto) 0.1 TH/MM3 Basophils # (Auto) 0.1 TH/MM3 CBC Comment DIFF FINAL Differential Comment Laboratory Tests Test 01/28/16 05:15 Sodium Level 142 MEQ/L Potassium Level 3.8 MEQ/L Chloride Level 106 MEQ/L Carbon Dioxide Level 29.3 MEQ/L Anion Gap 7 MEQ/L Blood Urea Nitrogen 22 MG/DL Creatinine 2.08 MG/DL Estimat Glomerular Filtration 32 ML/MIN Rate Random Glucose 165 MG/DL Calcium Level 8.2 MG/DL Microbiology Date/Time Procedure Status Source Growth 01/27/16 06:00 Urine Culture - Final Complete Urine Catheterized Urine Rom[facility] Last Impressions Myocardial Perfusion Scan Nuc Med 01/13/16 0000 Signed Impressions: Service Date/Time: Wednesday, January 13, 2016 10:52 - CONCLUSION: Small size, moderate severity nonreversible apical perfusion abnormality. RISK CATEGORY: Low (<1%% Annual Mortality Rate) Jayce Ham MD Shoulder X-Ray 01/12/16 0000 Signed Impressions: Service Date/Time: Tuesday, January 12, 2016 09:24 - CONCLUSION: 1. No acute fracture or subluxation of the left shoulder. 2. Probably an old fracture of the distal clavicle, healed. 3. 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 Jayce Ng MD Lower Extremity Ultrasound 01/11/16 1600 Signed Impressions: Service Date/Time: Monday, January 11, 2016 17:13 - CONCLUSION: 1. Nonocclusive thrombus in the popliteal vein and peroneal tributary. More central venous system is sonographically normal. 2. Tube like graft/stent in the right groin region with a surrounding hypoechoic region which does not show color Doppler flow. Diagnostic considerations include a thrombosed aneurysm treated with a covered stent/graft versus fluid around the regional vasculature. The latter would be concerning for possible perivascular infection. If patient's symptomatology is characteristic of an infectious or inflammatory process, CTA of the pelvis would be recommended for further characterization.. Carroll Arteaga MD Knee X-Ray 01/11/16 6917 Signed Impressions: Service Date/Time: Monday, January 11, 2016 16:43 - CONCLUSION: Small joint effusion. Jessica Blackburn MD Chest X-Ray 01/11/16 [id number] Signed Impressions: Service Date/Time: Monday, January 11, 2016 16:40 - CONCLUSION: No acute cardiopulmonary disease. Jessica Blackburn MD Physical Exam GENERAL: Thin built, Under nourished, well developed patient, in no apparent distress. SKIN: No rashes. HEAD: Atraumatic. Normocephalic. No temporal or scalp tenderness. EYES: Pupils equal round and reactive. Extraocular motions intact. No scleral icterus. No injection or drainage. ENT: Nose without bleeding, purulent drainage or septal hematoma. Throat without erythema, tonsillar hypertrophy or exudate. Uvula midline. Airway patent. NECK: Trachea midline. Supple, nontender, no meningeal signs. CARDIOVASCULAR: RRR, murmur. RESPIRATORY: Clear to auscultation. Breath sounds equal bilaterally. GASTROINTESTINAL: Abdomen soft, tenderness noted in Suprapubic region. MUSCULOSKELETAL: RLE with significant swelling noted. Tender to touch. Right foot plantar aspect with multiple septic emboli noted. NEUROLOGICAL: Awake and alert. Responds to questions but sluggish. Psych: cooperative IV line sites with no e.o infection Assessment & Plan Remarks Sepsis present on admission (patient was on antibiotics prior to admission ?). Fever, elevated WBC and bacteremia as source. MSSA bacteremia, endocarditis: ? 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 MSSA and ESBL E.coli UTI and Emphysematous Cystitis: Patient self catheterizes at home. Neurogenic bladder. Pneumonia Persistent bacteremia: likely source infected aneurysm seeding as organisms match. Acute metabolic encephalopathy: likely sepsis related improving. Acute renal failure: ? sepsis related, baseline not known. DM uncontrolled on admission. DVT Right LE Recent admission at [facility] as risk factor for infection. H/o Hep C. Recs Continue Ancef IV q8 hrs equivalent renal dose adjusted. Continue Ertapenem IV (ASP criteria: ESBL UTI/emphysematous cystitis present on admission in a patient that self catheterizes at home) Continue Rifampin oral (has a graft material in thigh) for now. Start Diflucan oral. d/w about emphysematous cystitis: he recommends additional 2 weeks of Ertapenem IV. He will follow as outpatient and obtain repeat imaging. Follow clinically. d/w patient and RN. d/w patient and daughter: explained that the graft is still in situ and patient stands at risk of recurrent infections. I offered 2 options: Option 1: Ancef IV plus rifampin for 6 weeks followed by oral antibiotic(such as diclox or doxy) for 4 months as suppression. If recurrence oral antibiotic suppression for life after re-treatment. Option 2: Ancef IV plus rifampin for 6 weeks followed by oral antibiotic for life. With this approach there is a chance of development of resistance and development of Cdiff infection. Patient and daughter will discuss and upon outpatient follow up with this can be determined. d/w d/w case management: pts family would like termite inspector placement. Also discussed antibiotics at [facility]. Will place infusion orders today to start SNF approval process. Also PICC line placement. Check CRP and Hepatitis profile. ? Hep B or Hep C per patient was on treatment. This needs to be addressed outpt as well. Anali Beaver MD Jan 29, 2016 19:26
[2016-01-29] MEDS ORDERED: RIFA150C2 PO (19:53)
[2016-01-29] MEDS ORDERED: DIFL100T PO (19:53)
[2016-01-29 20:00] VITALS: BP 123/72; PULSE 111; RESP 16; TEMP 98.4; O2SAT 95
--- NOTE | 2016-01-29 20:10 | HHI.FF ---
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 Romelia UTI CKD Hepatitis C by history Coded Allergies: *MDRO Multi-Drug Resistant Organism (Verified Adverse Reaction, Unknown, 01/13/16) ESBL+E.Coli (urine-01/11/16) Administer Medication Cefazolin 2 grams IV q 8 hours Start Treatment: Jan 30, 2016 Stop Treatment: Mar 03, 2016 Administer Medication 1 gram IV q 24 hours Additional Information Additional Medications Rifampin 150 mg po bid for 30 days(for prosthetic graft infection) Stop date: Feb. Patient needs follow up at Dr.Reba Trevino office for determination of oral suppression agent and length of the antibiotic etc. Venous access: PICC Line Additional Instructions [x] Peripheral flush and dressing changes per protocol [x] Implanted port and central telephone lineworker: * Implanted port: 10 ml Normal Saline followed by 5 ml Heparin 100 units/ml Heparin flush after each use and monthly to maintain. [] May leave port accessed during therapy. [] May leave peripheral site accessed for duration of therapy. [x] If patient has SOB or respiratory distress, check oxygen saturation. If less than 90% or clinical signs of respiratory distress, administer oxygen at 2 L/min. via nasal cannula and notify physician. [x] Anaphylaxis/Reaction orders: * Stop infusion. * Keep IV line open with saline flush. * Notify physician. * Monitor vital signs every 15 minutes until symptoms resolve. * Check Oxygen saturation; Oxygen at 2 L/min. via nasal cannula if less than 90% or clinical signs of respiratory distress. * Administer diphenhydramine (Benadryl) 25 mg IV STAT, (unless patient has received as pre-med). May repeat once, if necessary. * Solu-Cortef 250 mg IVP over 30-60 seconds, use 100 mg vials for each dissolution. * Epinephrine (1mg/1 ml) 0.3 mg subcutaneously or IVP now with any signs of respiratory distress. * Check with physician for new additional pre-med orders if patient is re- challenged or re-treated. [x] May remove PICC line when treatment complete, after confirming with Physician. [x] If the patient is admitted to the hospital, the ED, or transferred via [facility] , complete transfer form including medication reconciliation order sheet. Laboratory Tests Weekly Labs: CBC w/diff, Creatinine, CRP, LFT's (Hepatic function test) Additional Information Please draw weekly labs, call with abnormals, change in clinical condition or problems to: Dr.Reba Trevino and or Covering ID Physician Also as courtesy please fax results to patients PCP Follow up appt: Patient to schedule follow up appt with Dr.Reba Trevino within 3 weeks post discharge. Follow up with PCP Follow up with other MDs as planned. Counseling: Counseled about medication side effects Counseled about PICC line care and hand hygiene. Counseled about Cdiff and importance of early testing. Anali Beaver MD Jan 29, 2016 20:10
[2016-01-29] MEDS: INSULIN DETEMIR 100 UNITS/ML VIAL SQ SCH (22:37)
[2016-01-29] MEDS: ATORVASTATIN 40 MG TAB PO SCH (22:39)
--- NOTE | 2016-01-29 23:22 | HHI.PR ---
Subjective Remarks Patient seen today around 3 PM. Lying in bed. Says he feels like he is getting better. Still has not walked, however able to sit up on edge of bed with PPI. discussed again with infectious disease. appreciate assistance. PICC line per infectious disease. Objective Vital Signs Date Time Temp Pulse Resp B/P Pulse Ox O2 Delivery O2 Flow Rate FiO2 01/29/16 20:00 98.4 111 16 123/72 95 01/29/16 16:00 99.2 108 16 142/82 97 01/29/16 12:00 99.2 107 16 130/78 97 01/29/16 08:00 99.2 106 18 171/92 96 01/29/16 05:00 99.1 103 18 149/89 97 01/29/16 01:15 98.6 106 18 148/82 96 I/O 01/28/16 01/28/16 01/28/16 01/29/16 01/29/16 01/29/16 07:00 15:00 23:00 07:00 15:00 23:00 Intake Total 1770 ml 960 ml 400 ml 110 ml 240 ml Output Total 1000 ml 1175 ml 800 ml 750 ml 800 ml Balance 770 ml -215 ml -400 ml -640 ml -560 ml Intake Oral 240 ml 960 ml 110 ml 240 ml IV Total 1530 ml 400 ml Output Urine Total 1000 ml 1175 ml 800 ml 750 ml 800 ml # Bowel Movements 1 Result Diagram: 01/29/16 0611 01/28/16 0515 Objective Remarks GENERAL: Thin 70-year-old male. sitting up in chair. appears comfortable. Smiling. SKIN: Warm and dry. HEAD: Normocephalic. EYES: No scleral icterus. No injection or drainage. NECK: Supple, trachea midline. No JVD. CARDIOVASCULAR: Regular rate and rhythm without murmurs, gallops, or rubs. RESPIRATORY: Breath sounds equal bilaterally. No accessory muscle use. GASTROINTESTINAL: Abdomen soft, non-tender, nondistended. MUSCULOSKELETAL: No cyanosis. trace right lower extremity edema Patient has multiple non-confluent subcentimeter nonblanching purpuric macules on the plantar surface of the right foot slowly resolving. BACK: Nontender without obvious deformity. No CVA tenderness. A/P Assessment and Plan 01/23. Pending Doppler ultrasound of right femoropopliteal stent. Continue antibiotics as per infectious disease. Potassium appears repleted. Have ordered dietary consult for malnutrition. 01/24. Right femoropopliteal stent with decrease in perianastomotic fluid collection on ultrasound. Appreciate dietary recommendations. Continue antibiotics as per infectious disease. 01/25. Slight increase in creatinine. We'll continue to monitor. Still very well below creatinine on admission. Glucose elevated. Will add Levemir 5 units nightly 01/26. Cloudy urine. Urinalysis and culture ordered by infectious disease. Will follow. Kidney function is stable. Glucose relatively stable today. Will consider increasing coverage tomorrow if still elevated. Patient appears to be doing well with liberalized diet. 01/27. Continue to wait for INR to be therapeutic. Urinalysis pending. Continue antibiotics as per infectious disease. 01/28. INR still subtherapeutic. Yeast in urine, but no bacteria or. Continue antibiotics as per infectious disease. 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 - Dr. Alvarenga on consult for second opinion and has offered surgery, patient now stating he would like to stay at [facility] for surgery, however surgery on hold as there is now a question of patient's capacity as his mental status waxes and wanes as well as family's understanding of risks/benefits of proceeding with surgery, as patient has multiple other underlying serious infections and is clearly high risk for surgery. -Palliative care following to help facilitate goals of care and family communication. - Appreciate vascular surgery assistance. No surgery at this time. -Cont rifampin and IV antibiotics As per Dr. Lee Beaver. //Severe emphysematous UTI (recurrent or worsening as compared to previous CT done 09/2014) - with air in the extraperitoneal pelvis suggestive of possible developing fistula or bladder perforation. Urine cx growing E. Coli ESBL and staph aureus. -Plan is to continue paul and antibiotics for some weeks and repeat CT in 2 weeks as usually extraperitoneal bladder perforation will heal on their own. -The patient is on ertapenem start date 01/12 for this infection. - Appreciate infectious disease and urology assistance. Continue with Paul. Continue antibiotics as per infectious disease. -01/26 repeat urinalysis/culture pending // Acute metabolic encephalopathy //Hospital delirium - improving at times, however patient's daughter states he is nowhere near baseline.\\ -CT head 01/20 with no acute intracranial abnormality -Altered mental status most certainly secondary to systemic infection. No indication of meningitis or septic embolic stroke - improving with treatment of underlying medical illnesses. Cont ST. continue to monitor mental status. // Severe, persistent hypokalemia Appears improved after replacement.- -- continue repletion 30 meq Po BID. - Stable. Monitor as necessary. //Chronic urinary retention possibly due to neurogenic bladder - self catheterizes at home. Continue paul as per urology. - Appreciate urology assistance. Maintain Paul catheter. Urology has cleared for discharge. Uurology recommends suprapubic catheter in the future as outpatient. //Acute on Chronic kidney injury: -Creatinine 3.55 on admission. -Improved. Creatinine 2. Relatively stable. on IVF. Continue to monitor renal function. // Rhabdomyolysis - resolved. PT/OT following. OT does recommend inpatient rehab. //Elevated Trop: Trop 0.07, EKG w/ no acute changes. Likely secondary to worsening renal function. ECHO which showed EF 55-60%. stress test showed " Small size, moderate severity nonreversible apical perfusion abnormality, low risk". Appreciate cardiology input. // DM type 2: Uncontrolled. -Hgb A1c 8.0. - Relatively well controlled in hospital. -Continue sliding scale w/ Accu-Cheks. -Continue to monitor. 01/25. Glucose elevated.likely secondary to liberalize diet. Patient eating a lot of popsicles, but glad he is eating.. Will add Levemir 5 units nightly // DVT of right upper popliteal and peroneal tributary, and of right upper extremity in the brachial vein. -Continue heparin drip until able to bridge to coumadin. -Will need at least 3 months AC for provoked DVT, appreciate hematology input. // Left elbow swelling: Orthopedic evaluated pt, CT elbow negative for effusion or abscess. Appreciate assistance. //Severe protein calorie malnutrition. - 01/24. Appreciate dietary recommendations. Start 2500-calorie diabetic diet. Glucerna shakes 3 times a day = Continue monitor. //DVT prophylaxis. Patient is on therapeutic treatment for DVT. 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 -Physical therapy recommends rehabilitation. -Appreciate case management assistance. Carlos Bustillo MD Jan 29, 2016 23:22
[2016-01-30] VITALS: BP 123/71; PULSE 107; RESP 18; TEMP 98.1; O2SAT 95
[2016-01-30] MEDS: SODIUM BICARBONATE 8.4% INJ 100 MEQ in SODIUM CHLOR 0.9% 1000 ML INJ 1,000 ML IV SCH (01:35)
[2016-01-30] MEDS: MORPHINE SULFATE 4 MG/ML INJ IV PUSH PRN (01:42)
[2016-01-30 04:00] VITALS: BP 114/70; PULSE 105; RESP 18; TEMP 97.8; O2SAT 95
[2016-01-30] MEDS: ceFAZolin 2 GM PREMIX 50 ML IV SCH ×3 (06:14→21:23)
[2016-01-30] MEDS: INSULIN ASPART SUPPLEMENTAL SCALE SQ SCH ×4 (06:14→21:18)
[2016-01-30 06:46] LABS: APTT (PATIENT) 73.2 SEC (24.3-30.1); INTERNATIONAL NORMALIZED RATIO 1.4 RATIO
[2016-01-30] MEDS: SODIUM CHLORIDE 0.9% FLUSH 5 ML FLUSH FLUSH SCH ×2 (09:00→21:00)
[2016-01-30] MEDS: RIFAMPIN 150 MG CAP PO SCH ×2 (09:14→20:49)
[2016-01-30] MEDS: CALCIUM CARBONATE 500 MG CHEWABLE TAB CHEW SCH ×2 (09:14→20:49)
[2016-01-30] MEDS: FLUCONAZOLE 100 MG TAB PO SCH (09:15)
[2016-01-30] MEDS: POTASSIUM CHLORIDE 10 MEQ CONTROLLED RELEASE TAB PO SCH ×2 (09:15→21:17)
[2016-01-30 09:30] VITALS: BP 133/86; PULSE 104; RESP 20; TEMP 96.5; O2SAT 96
[2016-01-30] MEDS: LACTATED RINGER'S 1000 ML IV SCH (11:00)
[2016-01-30 12:00] VITALS: BP 159/80; PULSE 95; RESP 16; O2SAT 91
[2016-01-30] MEDS: ERTAPENEM INJ 1,000 MG in SODIUM CHLORIDE 0.9% INJ 100 ML IV SCH (12:02)
[2016-01-30] MEDS: amLODIPine BESYLATE 5 MG TAB PO SCH (12:07)
[2016-01-30] MEDS: HEPARIN-D5W INJ 250 ML IV SCH (13:22)
[2016-01-30] MEDS: ACETAMINOPHEN/HYDROcodone 325 MG/5 MG TAB PO PRN (13:52)
[2016-01-30] MEDS: WARFARIN SOD 1 MG TAB PO SCH (16:28)
--- NOTE | 2016-01-30 17:07 | HHI.HCPN ---
Reason for visit a. To assist with evaluation and management of symptoms including: Encephalopathy,weakness b. To assist medical decision maker(s) with: better understanding of current medical conditions; weighing benefits/burdens of medical treatment options; making medical treatment decisions. . Subjective/Interval History Mr. Garcia is a 70-year-old male who was brought to [place] ED on 01/11/16 for evaluation of fever, altered mental status and an elevated blood glucose of 500 at home. He was subsequently admitted with sepsis. The patient is now being evaluated and managed for MSSA bacteremia (unknown etiology), ESBL and MSSA UTI. His past medical history significant for hypertension, diabetes, hyperlipidemia and neurogenic bladder with self-catheterization. Patient was seen and assessed in room 714. Patient is awake, very lethargic and weak. Appetite remains poor, approximately 20%. Collaborated with Dr. Bustillo, case management and the patient's nurse. Currently there is a plan in place to discharge the patient to a residential facility with a PICC line. Per Infectious disease, patient has 2 options. Option 1: Ancef IV plus rifapam for 6 weeks followed by oral antibiotics for 4 months as suppression. If there was recurrence, oral antibiotic suppression for life would be required after retreatment. Option 2: Ancef IV plus rifapam for 6 weeks followed by oral antibiotics for life, this option involves risk developing resistance and/or C. difficile. The patient's daughter is now uncertain if continued aggressive treatment is and her father's best interest, and she would like to consider the option of transitioning to comfort focused care. . . Family/friend interactions Spoke to patient's daughter, Puja, via telephone. We had a lengthy discussion about the patient's hospitalization course and plan for possible discharge. The patient's daughter is now uncertain if continued aggressive treatment is and her father's best interest, and she would like to consider the option of transitioning to comfort focused care. Family meeting scheduled for 02/03/16 at 11am. . . Advance Directives Living Will: Never completed Health Care Surrogate: Never completed Durable Power of Emblem Drawer In: Never completed Advance Directive Specifics Significant change in goals: Spoke to patient's daughter, Puja, via telephone. We had a lengthy discussion about the patient's hospitalization course and plan for possible discharge. The patient's daughter is now uncertain if continued aggressive treatment is and her father's best interest, and she would like to consider the option of transitioning to comfort focused care. Family meeting scheduled for 02/03/16 at 11am. . Objective Vital Signs Date Time Temp Pulse Resp B/P Pulse Ox O2 Delivery O2 Flow Rate FiO2 01/30/16 12:00 95 16 159/80 91 01/30/16 09:30 96.5 104 20 133/86 96 01/30/16 04:00 97.8 105 18 114/70 95 01/30/16 01:47 20 01/30/16 00:00 98.1 107 18 123/71 95 01/29/16 20:00 98.4 111 16 123/72 95 Intake & Output 01/30/16 01/30/16 07:00 19:00 Intake Total 1760 ml 643 ml Output Total 1100 ml 800 ml Balance 660 ml -157 ml Intake Oral 720 ml 240 ml IV Total 1040 ml 403 ml Output Urine Total 1100 ml 800 ml . Physical Exam CONSTITUTIONAL/GENERAL: Frail, elderly-appearing patient in no apparent distress. TUBES/LINES/DRAINS: Peripheral IV left upper extremity, Payan catheter CARDIOVASCULAR: Regular rate and rhythm, + murmur. RESPIRATORY/CHEST: Symmetric, unlabored respirations on room air. Clear to auscultation. Breath sounds equal bilaterally, no accessory muscle use GASTROINTESTINAL: Abdomen soft, flat, non-tender, nondistended. No hepato- splenomegaly, or palpable masses. Bowel sounds present. NEUROLOGICAL: Awake but very lethargic Speech is very soft, at times is somewhat garbled and difficult to understand. Patient is slow to answer questions. Cooperative. Follows commands. Moves all extremities. PSYCHIATRIC: No obvious anxiety/depression . Diagnostic Tests Laboratory Laboratory Tests Test 01/28/16 01/28/16 01/28/16 01/28/16 05:15 08:54 15:58 22:21 White Blood Count 10.9 TH/MM3 (4.0-11.0) Red Blood Count 3.23 MIL/MM3 (4.50-5.90) Hemoglobin 9.9 GM/DL (13.0-17.0) Hematocrit 29.4 % (39.0-51.0) Mean Corpuscular Volume 91.0 FL (80.0-100.0) Mean Corpuscular Hemoglobin 30.6 PG (27.0-34.0) Mean Corpuscular Hemoglobin 33.7 % Concent (32.0-36.0) Red Cell Distribution Width 15.7 % (11.6-17.2) Platelet Count 216 TH/MM3 (150-450) Mean Platelet Volume 8.4 FL (7.0-11.0) Neutrophils (%) (Auto) 74.5 % (16.0-70.0) Lymphocytes (%) (Auto) 16.4 % (9.0-44.0) Monocytes (%) (Auto) 7.8 % (0.0-8.0) Eosinophils (%) (Auto) 0.7 % (0.0-4.0) Basophils (%) (Auto) 0.6 % (0.0-2.0) Neutrophils # (Auto) 8.1 TH/MM3 (1.8-7.7) Lymphocytes # (Auto) 1.8 TH/MM3 (1.0-4.8) Monocytes # (Auto) 0.8 TH/MM3 (0-0.9) Eosinophils # (Auto) 0.1 TH/MM3 (0-0.4) Basophils # (Auto) 0.1 TH/MM3 (0-0.2) CBC Comment DIFF FINAL Differential Comment Prothrombin Time 14.0 SEC (9.8-11.6) Prothromb Time International 1.3 RATIO Ratio Sodium Level 142 MEQ/L (136-145) Potassium Level 3.8 MEQ/L (3.5-5.1) Chloride Level 106 MEQ/L (98-107) Carbon Dioxide Level 29.3 MEQ/L (21.0-32.0) Anion Gap 7 MEQ/L (5-15) Blood Urea Nitrogen 22 MG/DL (7-18) Creatinine 2.08 MG/DL (0.60-1.30) Estimat Glomerular Filtration 32 ML/MIN (>89) Rate Random Glucose 165 MG/DL (74-106) Calcium Level 8.2 MG/DL (8.5-10.1) Activated Partial 33.1 SEC 31.0 SEC 45.2 SEC Thromboplast Time (24.3-30.1) (24.3-30.1) (24.3-30.1) Test 01/29/16 01/29/16 01/30/16 06:11 11:02 06:13 White Blood Count 10.6 TH/MM3 (4.0-11.0) Red Blood Count 3.40 MIL/MM3 (4.50-5.90) Hemoglobin 10.5 GM/DL (13.0-17.0) Hematocrit 31.0 % (39.0-51.0) Mean Corpuscular Volume 91.1 FL (80.0-100.0) Mean Corpuscular Hemoglobin 31.0 PG (27.0-34.0) Mean Corpuscular Hemoglobin 34.0 % Concent (32.0-36.0) Red Cell Distribution Width 16.4 % (11.6-17.2) Platelet Count 199 TH/MM3 (150-450) Mean Platelet Volume 8.2 FL (7.0-11.0) Activated Partial 61.3 SEC 73.2 SEC Thromboplast Time (24.3-30.1) (24.3-30.1) Prothrombin Time 13.7 SEC 16.0 SEC (9.8-11.6) (9.8-11.6) Prothromb Time International 1.2 RATIO 1.4 RATIO Ratio C-Reactive Protein 14.00 MG/DL (0.00-0.30) Hepatitis A IgM Antibody NEGATIVE (NEGATIVE) Hepatitis B Surface Antigen NEGATIVE (NEGATIVE) Hepatitis B Core IgM Antibody NEGATIVE (NEGATIVE) Hepatitis C Antibody REACTIVE (NEGATIVE) . Result Diagram: 01/29/16 0611 01/28/16 0515 Microbiology Microbiology Date/Time Procedure Status Source Growth 01/27/16 06:00 Urine Culture - Final Complete Urine Catheterized Urine Romelia Albicans . Procedures 01/16 ultrasound-guided drainage of complex fluid around right femoral graft. Assessment and Plan Disease Oriented Problem List: (1) Sepsis (2) Acute on chronic renal insufficiency (3) UTI (urinary tract infection) (4) DM (diabetes mellitus) (5) Leukocytosis (6) DVT (deep venous thrombosis) (7) Heart murmur (8) Perivascular/Graft abcess (9) Emphysematous cystitis (10) Endocarditis Comment: Suspected endocarditis despite negative CHUCHO, concern for septic emboli (11) Neurogenic bladder (12) Hypokalemia Symptom Scale: (1) Encephalopathy (2) Pain Comment: Endorsed some pain on admission to lower extremities however, does not today during my exam Pertinent Non-Medical Issues Psychosocial:originally from [place] though has lived in [place] for many years. . Retired. Has one adult daughter whom he lives with. Has 3 grandchildren who also live with him and the daughter, school-aged. He participates in their care. Active prior to this hospitalization, enjoys golf. 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 His neurological status appears to wax and wane based on reports.Recommend Shared decision making involving the patient and his daughter . His daughter Puja is his only child and would be appropriate proxy per [place] statutes. Ethical issues impacting care: Important Contacts Puja Bose daughter [phone] Prognosis This patient was admitted for UTI, sepsis. Subsequently has had findings of fluid accumulation, questionable abscess around old bypass graft. Recommended for urgent surgery for removal of graft. Neurological status has waxed and waned, seems to have had an underlying old stroke. Given advanced age and recent recurrent illnesses does remain high risk for further complications and setbacks. If the patient elected not to undergo aggressive interventions such as surgeries to remove graft, etc. may be appropriate for hospice and comfort measures only if goals compatible. Code Status: Full Code Plan * Legal decision makerPatient appears to have some limited insight into conditions and options though at times seems to have fairly limited ability to weigh benefits/burdens for decision-making. His neurological status appears to wax and wane based on reports. Would recommend Shared decision making involving the patient and his daughter in any decision-making to ensure full understanding of associated benefits/burdens. His daughter Puja is his only child and would be appropriate proxy per [place] statutes. * Spoke to patient's daughter, Puja, via telephone. We had a lengthy discussion about the patient's hospitalization course and plan for possible discharge. The patient's daughter is now uncertain if continued aggressive treatment is and her father's best interest, and she would like to consider the option of transitioning to comfort focused care. Family meeting scheduled for at 11am. * SYMPTOMS --Encephalopathy: Neuro status seems to wax and wane, history of old CVA based on imaging in prior records. While he is oriented and for the most part appropriate appears decision-making would be best supported by a healthcare --Pain-at admission endorsed some pain to lower extremities notes are made to my exam denies any pain. has prn morphine, [place] available. Sparing requirements, will cont evaluate. surrogate or proxy. * Palliative care will continue to follow during hospital course as condition evolves, to assist patient/decision-maker with understanding of medical conditions, weighing benefits/burdens of treatment options, for clarification of goals of treatment. Additionally will assist with any symptoms of palliative concern Attestation To help prompt me to consider important information that might be impacting today's encounter and assessment, information from prior notes written by myself or my colleagues may have been "brought forward" into today's note. My signature on this note, however, is an attestation that I personally performed the exam, history, and/or decision-making noted today, and, unless otherwise indicated, the interactions with patient, family, and staff as well as the review of records all occurred today. I also attest that the listed assessment and stated plan reflect my best clinical judgment today based on the combination of historical information, prior notes, and today's exam/ interactions. When time spent is documented, it refers only to time spent today by the signer, or if indicated, combined time spent today by collaborating physician/nurse practitioner. Smiley Ledezma Jan 30, 2016 17:07
[2016-01-30 20:00] VITALS: BP 158/86; PULSE 106; RESP 16; TEMP 99.1; O2SAT 96
[2016-01-30] MEDS: ATORVASTATIN 40 MG TAB PO SCH (20:49)
[2016-01-30] MEDS: INSULIN DETEMIR 100 UNITS/ML VIAL SQ SCH (21:18)
[2016-01-31] VITALS: BP 130/76; PULSE 106; RESP 16; TEMP 99.3; O2SAT 94
--- NOTE | 2016-01-31 01:52 | HHI.PR ---
Subjective Remarks date of service 01/30/16 Patient seen today around 3:30 - Denies any chest pain or shortness of breath. Says he is slowly regaining strength. Objective Vital Signs Date Time Temp Pulse Resp B/P Pulse Ox O2 Delivery O2 Flow Rate FiO2 01/31/16 00:00 99.3 106 16 130/76 94 01/30/16 20:00 99.1 106 16 158/86 96 01/30/16 12:00 95 16 159/80 91 01/30/16 09:30 96.5 104 20 133/86 96 01/30/16 04:00 97.8 105 18 114/70 95 I/O 01/30/16 01/30/16 01/30/16 01/31/16 01/31/16 01/31/16 06:59 14:59 22:59 06:59 14:59 22:59 Intake Total 1104 ml 403 ml 1060 ml Output Total 300 ml 1650 ml Balance 804 ml 403 ml -590 ml Intake Oral 480 ml 600 ml IV Total 624 ml 403 ml 460 ml Output Urine Total 300 ml 1650 ml # Bowel Movements 0 Result Diagram: 01/29/16 0611 01/28/16 0515 Objective Remarks GENERAL: Thin 70-year-old male. lying in bed. appears comfortable. Smiling. SKIN: Warm and dry. HEAD: Normocephalic. EYES: No scleral icterus. No injection or drainage. NECK: Supple, trachea midline. No JVD. CARDIOVASCULAR: Regular rate and rhythm without murmurs, gallops, or rubs. RESPIRATORY: Breath sounds equal bilaterally. No accessory muscle use. GASTROINTESTINAL: Abdomen soft, non-tender, nondistended. MUSCULOSKELETAL: No cyanosis. trace right lower extremity edema Patient has multiple non-confluent subcentimeter nonblanching purpuric macules on the plantar surface of the right foot slowly resolving. BACK: Nontender without obvious deformity. No CVA tenderness. A/P Assessment and Plan 01/23. Pending Doppler ultrasound of right femoropopliteal stent. Continue antibiotics as per infectious disease. Potassium appears repleted. Have ordered dietary consult for malnutrition. 01/24. Right femoropopliteal stent with decrease in perianastomotic fluid collection on ultrasound. Appreciate dietary recommendations. Continue antibiotics as per infectious disease. 01/25. Slight increase in creatinine. We'll continue to monitor. Still very well below creatinine on admission. Glucose elevated. Will add Levemir 5 units nightly 01/26. Cloudy urine. Urinalysis and culture ordered by infectious disease. Will follow. Kidney function is stable. Glucose relatively stable today. Will consider increasing coverage tomorrow if still elevated. Patient appears to be doing well with liberalized diet. 01/27. Continue to wait for INR to be therapeutic. Urinalysis pending. Continue antibiotics as per infectious disease. 01/28. INR still subtherapeutic. Yeast in urine, but no bacteria or. Continue antibiotics as per infectious disease. 01/29. INR still subtherapeutic. Continue antibiotics as per infectious disease. 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 - Dr. Alvarenga on consult for second opinion and has offered surgery, patient now stating he would like to stay at [facility] for surgery, however surgery on hold as there is now a question of patient's capacity as his mental status waxes and wanes as well as family's understanding of risks/benefits of proceeding with surgery, as patient has multiple other underlying serious infections and is clearly high risk for surgery. -Palliative care following to help facilitate goals of care and family communication. - Appreciate vascular surgery assistance. No surgery at this time. -Cont rifampin and IV antibiotics As per Dr. Lee Beaver. //Severe emphysematous UTI (recurrent or worsening as compared to previous CT done 09/2014) - with air in the extraperitoneal pelvis suggestive of possible developing fistula or bladder perforation. Urine cx growing E. Coli ESBL and staph aureus. -Plan is to continue paul and antibiotics for some weeks and repeat CT in 2 weeks as usually extraperitoneal bladder perforation will heal on their own. -The patient is on ertapenem start date 01/12 for this infection. - Appreciate infectious disease and urology assistance. Continue with Paul. Continue antibiotics as per infectious disease. -01/26 repeat urinalysis with only yeast, no bacteria. No fevers or symptoms of dysuria. // Acute metabolic encephalopathy //Hospital delirium - improving at times, however patient's daughter states he is nowhere near baseline.\\ -CT head 01/20 with no acute intracranial abnormality -Altered mental status most certainly secondary to systemic infection. No indication of meningitis or septic embolic stroke - improving with treatment of underlying medical illnesses. Cont ST. continue to monitor mental status. // Severe, persistent hypokalemia Appears improved after replacement.- -- continue repletion 30 meq Po BID. - Stable. Monitor as necessary. //Chronic urinary retention possibly due to neurogenic bladder - self catheterizes at home. Continue paul as per urology. - Appreciate urology assistance. Maintain Paul catheter. Urology has cleared for discharge. Uurology recommends suprapubic catheter in the future as outpatient. //Acute on Chronic kidney injury: -Creatinine 3.55 on admission. -Improved. Creatinine 2. Relatively stable. on IVF. Continue to monitor renal function. // Rhabdomyolysis - resolved. PT/OT following. OT does recommend inpatient rehab. //Elevated Trop: Trop 0.07, EKG w/ no acute changes. Likely secondary to worsening renal function. ECHO which showed EF 55-60%. stress test showed " Small size, moderate severity nonreversible apical perfusion abnormality, low risk". Appreciate cardiology input. // DM type 2: Uncontrolled. -Hgb A1c 8.0. - Relatively well controlled in hospital. -Continue sliding scale w/ Accu-Cheks. -Continue to monitor. 01/25. Glucose elevated.likely secondary to liberalize diet. Patient eating a lot of popsicles, but glad he is eating.. Will add Levemir 5 units nightly - // DVT of right upper popliteal and peroneal tributary, and of right upper extremity in the brachial vein. -Continue heparin drip until able to bridge to coumadin. -Will need at least 3 months AC for provoked DVT, appreciate hematology input. // Left elbow swelling: Orthopedic evaluated pt, CT elbow negative for effusion or abscess. Appreciate assistance. //Severe protein calorie malnutrition. - 01/24. Appreciate dietary recommendations. Start 2500-calorie diabetic diet. Glucerna shakes 3 times a day = Continue monitor. //DVT prophylaxis. Patient is on therapeutic treatment for DVT. 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 -Physical therapy recommends rehabilitation. -will need continued IV antibiotics as per infectious disease. -Appreciate case management assistance. Carlos Bustillo MD Jan 31, 2016 01:52
[2016-01-31 04:00] VITALS: BP 162/89; PULSE 104; RESP 16; TEMP 99.4; O2SAT 94
[2016-01-31] MEDS: ceFAZolin 2 GM PREMIX 50 ML IV SCH ×3 (05:24→21:43)
[2016-01-31] MEDS: INSULIN ASPART SUPPLEMENTAL SCALE SQ SCH ×4 (05:36→21:40)
[2016-01-31] MEDS: MORPHINE SULFATE 4 MG/ML INJ IV PUSH PRN ×2 (05:37→21:43)
[2016-01-31 06:01] LABS: APTT (PATIENT) 82.6 SEC (24.3-30.1); INTERNATIONAL NORMALIZED RATIO 1.6 RATIO; PROTHROMBIN TIME - PATIENT 18.4 SEC (9.8-11.6)
[2016-01-31 08:00] VITALS: BP 158/93; PULSE 104; RESP 16; TEMP 98.1; O2SAT 96
--- NOTE | 2016-01-31 08:40 | HHI.PR ---
Addendum to Inpatient Note Addendum Reason: Additional Documentation Additional Information d/w case management: pt may not be discharged while on Ertapenem. Continue inpatient orders for following antibiotics: CBC with diff, CMP (LFTs are important as patient on Rifampin), CRP every week. Labs to be followed by hospitalist. When patient ready to be discharged please call me or ID physician covering for verification of antibiotic orders. Will sign off If any change in clinical condition or questions please call back. Anali Beaver MD Jan 31, 2016 08:40
[2016-01-31] MEDS: SODIUM CHLORIDE 0.9% FLUSH 5 ML FLUSH FLUSH SCH ×2 (09:00→21:00)
[2016-01-31] MEDS: amLODIPine BESYLATE 5 MG TAB PO SCH (09:23)
[2016-01-31] MEDS: CALCIUM CARBONATE 500 MG CHEWABLE TAB CHEW SCH ×2 (09:23→21:28)
[2016-01-31] MEDS: POTASSIUM CHLORIDE 10 MEQ CONTROLLED RELEASE TAB PO SCH ×2 (09:23→21:28)
[2016-01-31] MEDS: RIFAMPIN 150 MG CAP PO SCH ×2 (09:24→21:28)
[2016-01-31] MEDS: FLUCONAZOLE 100 MG TAB PO SCH (09:24)
[2016-01-31] MEDS: ACETAMINOPHEN/HYDROcodone 325 MG/5 MG TAB PO PRN (09:40)
[2016-01-31] MEDS: LACTATED RINGER'S 1000 ML IV SCH (11:00)
[2016-01-31] MEDS: SODIUM BICARBONATE 8.4% INJ 100 MEQ in SODIUM CHLOR 0.9% 1000 ML INJ 1,000 ML IV SCH (11:00)
[2016-01-31] MEDS: ERTAPENEM INJ 1,000 MG in SODIUM CHLORIDE 0.9% INJ 100 ML IV SCH (11:58)
[2016-01-31 12:00] VITALS: BP 157/90; PULSE 109; RESP 16; TEMP 97.8; O2SAT 96
[2016-01-31 13:20] LABS: APTT (PATIENT) 123.5 SEC (24.3-30.1)
[2016-01-31 15:53] LABS: APTT (PATIENT) 39.7 SEC (24.3-30.1)
[2016-01-31 16:00] VITALS: BP 153/89; PULSE 105; RESP 16; TEMP 98; O2SAT 96
[2016-01-31] MEDS: WARFARIN SOD 1 MG TAB PO SCH (17:25)
[2016-01-31 20:00] VITALS: BP 158/98; PULSE 113; RESP 17; TEMP 96.1; O2SAT 96
--- NOTE | 2016-01-31 20:05 | HHI.PR ---
Subjective Remarks patient seen today around 1 PM. He says he is feeling all right. He is frustrated that he is not getting stronger faster, but reassured him that it takes time. He denies any chest pain, shortness of breath, nausea, vomiting. Appreciate infectious disease help. Discharge antibiotic recommendations in place. Patient is to have PICC line placed tomorrow. He will have heparin drip held at 4am for PICC line placement at 8 AM.heparin will need to be started after PICC line placement Objective Vital Signs Date Time Temp Pulse Resp B/P Pulse Ox O2 Delivery O2 Flow Rate FiO2 01/31/16 16:00 98.0 105 16 153/89 96 01/31/16 12:00 97.8 109 16 157/90 96 01/31/16 08:00 98.1 104 16 158/93 96 01/31/16 05:43 20 01/31/16 04:00 99.4 104 16 162/89 94 01/31/16 00:00 99.3 106 16 130/76 94 I/O 01/30/16 01/30/16 01/30/16 01/31/16 01/31/16 01/31/16 07:00 15:00 23:00 07:00 15:00 23:00 Intake Total 1104 ml 643 ml 820 ml 735 ml 70 ml Output Total 300 ml 800 ml 850 ml 400 ml 700 ml 500 ml Balance 804 ml -157 ml -30 ml 335 ml -700 ml -430 ml Intake Oral 480 ml 240 ml 360 ml 350 ml IV Total 624 ml 403 ml 460 ml 385 ml 70 ml Output Urine Total 300 ml 800 ml 850 ml 400 ml 700 ml 500 ml # Bowel Movements 0 0 Result Diagram: 01/29/16 0611 01/28/16 0515 Objective Remarks GENERAL: Thin 70-year-old male. lying in bed. appears comfortable. Smiling.no change on exam. SKIN: Warm and dry. HEAD: Normocephalic. EYES: No scleral icterus. No injection or drainage. NECK: Supple, trachea midline. No JVD. CARDIOVASCULAR: Regular rate and rhythm without murmurs, gallops, or rubs. RESPIRATORY: Breath sounds equal bilaterally. No accessory muscle use. GASTROINTESTINAL: Abdomen soft, non-tender, nondistended. MUSCULOSKELETAL: No cyanosis. trace right lower extremity edema Patient has multiple non-confluent subcentimeter nonblanching purpuric macules on the plantar surface of the right foot slowly resolving. BACK: Nontender without obvious deformity. No CVA tenderness. A/P Assessment and Plan 01/23. Pending Doppler ultrasound of right femoropopliteal stent. Continue antibiotics as per infectious disease. Potassium appears repleted. Have ordered dietary consult for malnutrition. 01/24. Right femoropopliteal stent with decrease in perianastomotic fluid collection on ultrasound. Appreciate dietary recommendations. Continue antibiotics as per infectious disease. 01/25. Slight increase in creatinine. We'll continue to monitor. Still very well below creatinine on admission. Glucose elevated. Will add Levemir 5 units nightly 01/26. Cloudy urine. Urinalysis and culture ordered by infectious disease. Will follow. Kidney function is stable. Glucose relatively stable today. Will consider increasing coverage tomorrow if still elevated. Patient appears to be doing well with liberalized diet. 01/27. Continue to wait for INR to be therapeutic. Urinalysis pending. Continue antibiotics as per infectious disease. 01/28. INR still subtherapeutic. Yeast in urine, but no bacteria or. Continue antibiotics as per infectious disease. 01/29. INR still subtherapeutic. Continue antibiotics as per infectious disease. 01/30. INR still subtherapeutic for treatment of right popliteal DVT. Also has right popliteal graft infection, which will require Ancef plus rifampin for 6 weeks, followed by lifelong oral suppression. Also requires 2 more weeks of ertapenem for treatment of emphysematous UTI. PICC placement for antibiotics by ID. Holding heparin drip at 4 AM for planned PICC line placement. Continue antibiotics as per infectious disease. Will need weekly CBC with differential, CMP as patient is on rifampin, CRP every week. Will need to be cleared by infectious disease prior to discharge. 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 - Dr. Alvarenga on consult for second opinion and has offered surgery, patient now stating he would like to stay at [facility] for surgery, however surgery on hold as there is now a question of patient's capacity as his mental status waxes and wanes as well as family's understanding of risks/benefits of proceeding with surgery, as patient has multiple other underlying serious infections and is clearly high risk for surgery. -Palliative care following to help facilitate goals of care and family communication. - Appreciate vascular surgery assistance. No surgery at this time. -Cont rifampin and IV antibiotics As per Dr. Lee Beaver. //Severe emphysematous UTI (recurrent or worsening as compared to previous CT done 09/2014) - with air in the extraperitoneal pelvis suggestive of possible developing fistula or bladder perforation. Urine cx growing E. Coli ESBL and staph aureus. -Plan is to continue paul and antibiotics for some weeks and repeat CT in 2 weeks as usually extraperitoneal bladder perforation will heal on their own. -The patient is on ertapenem start date 01/12 for this infection. - Appreciate infectious disease and urology assistance. Continue with Paul. Continue antibiotics as per infectious disease. -01/26 repeat urinalysis with yeast. Infectious disease started on fluconazole 01/29. // Acute metabolic encephalopathy //Hospital delirium - improving at times, however patient's daughter states he is nowhere near baseline.\\ -CT head 01/20 with no acute intracranial abnormality -Altered mental status most certainly secondary to systemic infection. No indication of meningitis or septic embolic stroke - improving with treatment of underlying medical illnesses. Cont ST. continue to monitor mental status. // Severe, persistent hypokalemia Appears improved after replacement.- -- continue repletion 30 meq Po BID. - Stable. Monitor as necessary. //Chronic urinary retention possibly due to neurogenic bladder - self catheterizes at home. Continue paul as per urology. - Appreciate urology assistance. Maintain Paul catheter. Urology has cleared for discharge. Uurology recommends suprapubic catheter in the future as outpatient. //Acute on Chronic kidney injury: -Creatinine 3.55 on admission. -Improved. Creatinine 2. Relatively stable. on IVF. Continue to monitor renal function. // Rhabdomyolysis - resolved. PT/OT following. OT does recommend inpatient rehab. //Elevated Trop: Trop 0.07, EKG w/ no acute changes. Likely secondary to worsening renal function. ECHO which showed EF 55-60%. stress test showed " Small size, moderate severity nonreversible apical perfusion abnormality, low risk". Appreciate cardiology input. // DM type 2: Uncontrolled. -Hgb A1c 8.0. - Relatively well controlled in hospital. -Continue sliding scale w/ Accu-Cheks. -Continue to monitor. 01/25. Glucose elevated.likely secondary to liberalize diet. Patient eating a lot of popsicles, but glad he is eating.. Will add Levemir 5 units nightly - // DVT of right upper popliteal and peroneal tributary, and of right upper extremity in the brachial vein. -Continue heparin drip until able to bridge to coumadin. -Will need at least 3 months AC for provoked DVT, appreciate hematology input. // Left elbow swelling: Orthopedic evaluated pt, CT elbow negative for effusion or abscess. Appreciate assistance. //Severe protein calorie malnutrition. - 01/24. Appreciate dietary recommendations. Start 2500-calorie diabetic diet. Glucerna shakes 3 times a day = Continue monitor. Still with poor by mouth intake. Consider starting Megace or Marinol. //DVT prophylaxis. Patient is on therapeutic treatment for DVT. 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 -will need continued IV antibiotics as per infectious disease-2 more weeks of IV ertapenem, Ancef IV, plus rifampin for 6 weeks, followed by oral antibiotic suppression ( such as doxycycline) - patient apparently cannot go on IV ertapenem, we'll need to stay in hospital to complete course. Infectious disease will need to clear at time of discharge. -Appreciate case management assistance. Carlos Bustillo MD Jan 31, 2016 20:05
[2016-01-31] MEDS: ATORVASTATIN 40 MG TAB PO SCH (21:28)
[2016-01-31] MEDS: INSULIN DETEMIR 100 UNITS/ML VIAL SQ SCH (21:39)
[2016-01-31 23:34] LABS: APTT (PATIENT) 48.1 SEC (24.3-30.1)
[2016-02-01] VITALS: BP 155/79; PULSE 105; RESP 16; TEMP 97.4; O2SAT 95
[2016-02-01] MEDS: HEPARIN-D5W INJ 250 ML IV SCH (01:48)
[2016-02-01 04:00] VITALS: BP 160/93; PULSE 116; RESP 16; TEMP 99.2; O2SAT 94
[2016-02-01] MEDS: ceFAZolin 2 GM PREMIX 50 ML IV SCH ×3 (06:00→22:10)
[2016-02-01 06:10] LABS: HEMATOCRIT 28.2 % (39.0-51.0); MEAN CELL VOLUME 91.5 FL (80.0-100.0); MEAN CORPUSCULAR HEMOGLOBIN 31.8 PG (27.0-34.0); MEAN CORPUSCULAR HGB CONC 34.7 % (32.0-36.0); PLATELET COUNT 266 TH/MM3 (150-450); RED BLOOD COUNT 3.08 MIL/MM3 (4.50-5.90); RED CELL DISTRIBUTION WIDTH 16.3 % (11.6-17.2); REVIEW FLAG FINAL; WHITE BLOOD COUNT 9.2 TH/MM3 (4.0-11.0)
[2016-02-01 06:23] LABS: APTT (PATIENT) 39.9 SEC (24.3-30.1); INTERNATIONAL NORMALIZED RATIO 1.6 RATIO
[2016-02-01 06:42] LABS: ANION GAP 9 MEQ/L (5-15); AST (GOT) 12 U/L (15-37); BICARBONATE 30.4 MEQ/L (21.0-32.0); BLOOD UREA NITROGEN 20 MG/DL (7-18); CHLORIDE 104 MEQ/L (98-107); POTASSIUM 3.6 MEQ/L (3.5-5.1); SODIUM (NA) 143 MEQ/L (136-145)
[2016-02-01 06:45] LABS: ALKALINE PHOSPHATASE 95 U/L (45-117); ALT (GPT) LESS THAN 6 U/L (12-78); GLOMERULAR FILTRATION RATE 28 ML/MIN (>89); TOTAL BILIRUBIN ADULT 0.2 MG/DL (0.2-1.0)
[2016-02-01 08:00] VITALS: BP 162/94; PULSE 118; RESP 17; TEMP 99.2; O2SAT 95
[2016-02-01] MEDS: SODIUM CHLORIDE 0.9% FLUSH 5 ML FLUSH FLUSH SCH ×2 (08:56→22:09)
[2016-02-01] MEDS: FLUCONAZOLE 100 MG TAB PO SCH (08:56)
[2016-02-01] MEDS: POTASSIUM CHLORIDE 10 MEQ CONTROLLED RELEASE TAB PO SCH ×2 (08:56→22:09)
[2016-02-01] MEDS: amLODIPine BESYLATE 5 MG TAB PO SCH (08:56)
[2016-02-01] MEDS: RIFAMPIN 150 MG CAP PO SCH ×2 (08:56→22:09)
[2016-02-01] MEDS: CALCIUM CARBONATE 500 MG CHEWABLE TAB CHEW SCH ×2 (08:56→22:08)
--- NOTE | 2016-02-01 10:57 | RADRPT ---
EXAM DATE/TIME: 02/01/2016 10:18 [facility] COMPARISON: CHEST SINGLE AP, January 11, 2016, 16:40. INDICATIONS : PICC line placement. MEDICAL HISTORY : None. SURGICAL HISTORY : None. ENCOUNTER: Initial ACUITY: 1 day PAIN SCORE: 0/10 LOCATION: Bilateral chest FINDINGS: A single view of the chest demonstrates the lungs to be symmetrically aerated without evidence of mas s, infiltrate or effusion. The cardiomediastinal contours are unremarkable. Osseous structures are intact. There has been interval placement of a left-sided PICC line with the tip projected over the s uperior vena cava. Atherosclerotic changes are again noted in the aorta with calcification. CONCLUSION: 1. Interval placement of left-sided PICC line. 2. No acute cardiopulmonary disease. Jarvis Pathak MD on February 01, 2016 at 10:54 Board Certified Radiologist. This report was verified electronically.
[2016-02-01] MEDS: INSULIN ASPART SUPPLEMENTAL SCALE SQ SCH ×4 (11:47→21:00)
[2016-02-01] MEDS: ERTAPENEM INJ 1,000 MG in SODIUM CHLORIDE 0.9% INJ 100 ML IV SCH (11:48)
[2016-02-01] MEDS: ACETAMINOPHEN/HYDROcodone 325 MG/5 MG TAB PO PRN ×2 (11:54→22:59)
[2016-02-01 12:00] VITALS: BP 165/96; PULSE 113; RESP 18; TEMP 99.5; O2SAT 94
--- NOTE | 2016-02-01 15:42 | HHI.PR ---
Subjective Remarks The pt was answering questions, resting in bed. No acute complaints. He said he had a bowel movement today. Objective Vitals Vital Signs Date Time Temp Pulse Resp B/P Pulse Ox O2 Delivery O2 Flow Rate FiO2 02/01/16 12:00 99.5 113 18 165/96 94 02/01/16 08:00 99.2 118 17 162/94 95 02/01/16 04:00 99.2 116 16 160/93 94 02/01/16 00:00 97.4 105 16 155/79 95 01/31/16 22:12 19 01/31/16 20:00 96.1 113 17 158/98 96 01/31/16 16:00 98.0 105 16 153/89 96 I/O 01/31/16 01/31/16 01/31/16 02/01/16 02/01/16 02/01/16 06:59 14:59 22:59 06:59 14:59 22:59 Intake Total 735 ml 519 ml 1331 ml Output Total 400 ml 700 ml 900 ml 600 ml 800 ml Balance 335 ml -700 ml -381 ml -600 ml -800 ml 1331 ml Intake Oral 350 ml 240 ml 500 ml IV Total 385 ml 279 ml 831 ml Output Urine Total 400 ml 700 ml 900 ml 600 ml 800 ml # Bowel Movements 0 Result Diagram: 02/01/16 0535 02/01/16 0535 Imaging Last Impressions Chest X-Ray 02/01/16 0000 Signed Impressions: Service Date/Time: Monday, February 01, 2016 10:18 - CONCLUSION: 1. Interval placement of left-sided PICC line. 2. No acute cardiopulmonary disease. Jarvis Pathak MD Lower Extremity Ultrasound 01/24/16 0426 Signed Impressions: Service Date/Time: Sunday, January 24, 2016 11:48 - CONCLUSION: 1. Significant decrease in the perianastomotic fluid collection Shon Mancilla MD Abdomen/Pelvis CT 01/23/16 0600 Signed Impressions: Service Date/Time: January 09:35 - CONCLUSION: 1. 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 2. Diverticulosis without evidence of diverticulitis. 3. Small bilateral effusions Shon Mancilla MD Head CT 01/21/16 0000 Signed Impressions: Service Date/Time: Thursday, January 21, 2016 10:58 - CONCLUSION: 1. No acute intracranial abnormality is identified. 2. Chronic changes include mild cerebral atrophy and periventricular white matter low attenuation characteristic of chronic microvascular ischemia. Additionally, there is encephalomalacia in the right frontal lobe likely related to prior ischemia. 3. 9 mm extra-axial ossification in the right parietal high convexity may represent a calcified meningioma. Jayce Peck MD Upper Extremity Ultrasound 01/20/16 0000 Signed Impressions: Service Date/Time: Wednesday, January 20, 2016 12:05 - CONCLUSION: Venous mapping as detailed above. John Mills Jr., MD Lower Extremity CT 01/19/16 0000 Signed Impressions: Service Date/Time: Wednesday, January 20, 2016 08:25 - CONCLUSION: 1. Abnormal cortical thickening involving tibia and fibula. This may reflect osteomyelitis. If there is necessity for further evaluation contrast-enhanced MRI is recommended. Shon Mancilla MD Cervical Spine CT 01/15/16 0000 Signed Impressions: Service Date/Time: Friday, January 15, 2016 15:51 - CONCLUSION: No abscess observed. John Mills Jr., MD Upper Extremity CT 01/14/16 0000 Signed Impressions: Service Date/Time: Friday, January 15, 2016 16:08 - CONCLUSION: Small olecranon spur. Intact bony structures. No evidence of fluid collection or abscess formation Arian Stone MD Elbow X-Ray 01/14/16 0000 Signed Impressions: Service Date/Time: Thursday, January 14, 2016 13:05 - CONCLUSION: Possible soft tissue swelling overlying the olecranon. Otherwise negative exam Arian Stone MD Chest CT 01/14/16 0000 Signed Impressions: Service Date/Time: Thursday, January 14, 2016 15:37 - CONCLUSION: Right lower lobe interstitial change with a peripheral wedge shaped triangular area of parenchymal consolidation and associated small pleural effusion. Arian Stone MD Myocardial Perfusion Scan Nuc Med 01/13/16 0000 Signed Impressions: Service Date/Time: Wednesday, January 13, 2016 10:52 - CONCLUSION: Small size, moderate severity nonreversible apical perfusion abnormality. RISK CATEGORY: Low (<1%% Annual Mortality Rate) Jayce Ham MD Shoulder X-Ray 01/12/16 0000 Signed Impressions: Service Date/Time: Tuesday, January 12, 2016 09:24 - CONCLUSION: 1. No acute fracture or subluxation of the left shoulder. 2. Probably an old fracture of the distal clavicle, healed. 3. 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 Jayce Ng MD Knee X-Ray 01/11/16 4995 Signed Impressions: Service Date/Time: Monday, January 11, 2016 16:43 - CONCLUSION: Small joint effusion. KEliezer Blackburn MD Objective Remarks GENERAL: Cachectic. Appears comfortable. SKIN: Warm and dry. HEAD: Normocephalic. EYES: No scleral icterus. No injection or drainage. NECK: Supple, trachea midline. No JVD. CARDIOVASCULAR: Regular rate and rhythm without murmurs, gallops, or rubs. RESPIRATORY: Breath sounds equal bilaterally. No accessory muscle use. GASTROINTESTINAL: Abdomen soft, non-tender, nondistended. MUSCULOSKELETAL: No cyanosis. trace right lower extremity edema Patient has multiple non-confluent subcentimeter nonblanching purpuric macules on the plantar surface of the right foot slowly resolving. BACK: Nontender without obvious deformity. No CVA tenderness. PSYCH: Flattened affect. Medications and IVs Current Medications Medications (Trade) Dose Ordered Sig/Smith Route Start Time Stop Time Status Last Admin (NS Flush) 2 ml UNSCH PRN FLUSH 01/11/16 18:45 (NS Flush) 2 ml BID FLUSH 01/11/16 21:00 02/01/16 08:56 (Tylenol) 650 mg Q4H PRN PO 01/11/16 18:45 01/14/16 18:25 (Dulcolax Supp) [address] 01/11/16 18:45 (Milk Of Magnesia Liq) 30 ml Q12H PRN PO 01/11/16 18:45 (Narcan Inj) 0.4 mg UNSCH PRN IV 01/11/16 18:45 (D50w (Vial) Inj) 25 ml UNSCH PRN IV PUSH 01/11/16 19:00 (Glucagon Inj) 1 mg UNSCH PRN OTHER 01/11/16 19:00 ([place] 5-325 Mg) 1 tab Q4H PRN PO 01/11/16 19:15 02/01/16 11:54 (Morphine Inj) 2 mg Q3H PRN IV PUSH 01/11/16 19:15 01/31/16 21:43 (Heparin Inj) 5,000 units UNSCH PRN IV 01/12/16 01:15 Heparin Sodium (Porcine) 2500 units 2,500 units UNSCH PRN IV 01/12/16 01:15 01/12/16 02:48 (Heparin-D5W Inj) 250 ml @ 0 mls/hr TITRATE IV 01/11/16 19:15 02/01/16 01:48 Calcium Carbonate 500 mg 500 mg Q12HR CHEW 01/13/16 09:00 02/01/16 08:56 Ertapenem 1000 mg/ Sodium Chloride 100 ml @ 200 mls/hr Q24H IV 01/13/16 12:00 02/13/16 11:59 02/01/16 11:48 (Ancef 2 Gm Premix) 50 ml @ 100 mls/hr Q8H IV 01/14/16 14:00 02/01/16 15:00 (Lipitor) 40 mg HS PO 01/15/16 21:00 01/31/16 21:28 Amlodipine Besylate 5 mg 5 mg DAILY PO 01/15/16 09:45 02/01/16 08:56 (Lr 1000 ml Inj) 1,000 ml @ 30 mls/hr Q24H IV 01/15/16 11:00 (Rifampin) 150 mg Q12HR PO 01/15/16 13:00 02/01/16 08:56 (Zofran Inj) 4 mg Q6HR PRN IV PUSH 01/22/16 00:30 (Pill Splitter) 1 ea UNSCH PRN OTHER 01/22/16 08:15 (KCl) 30 meq Q12HR PO 01/23/16 09:00 02/01/16 08:56 Enalaprilat 1.25 mg 1.25 mg Q6H PRN IV PUSH 01/23/16 13:15 01/28/16 12:30 (Sodium Bicarbonate 8.4% Inj/NS 1000 ml Inj) 1,100 ml @ 42 mls/hr Q24H IV 01/25/16 11:00 01/31/16 11:00 Insulin Detemir 5 units 5 units HS SQ 01/26/16 21:45 01/31/16 21:39 (Coumadin Consult Pharmacy) 0 ml @ 0 mls/hr UNSCH OTHER 01/28/16 14:15 (Diflucan) 100 mg DAILY PO 01/30/16 09:00 02/01/16 08:56 (Coumadin) 1.5 mg DAILY@16 PO 02/01/16 16:00 A/P Problem List: (1) Sepsis ICD Code: A41.9 Status: Resolved (2) UTI (urinary tract infection) ICD Code: N39.0 Status: Acute (3) Neurogenic bladder ICD Code: N31.9 Status: Acute (4) Acute on chronic renal insufficiency ICD Code: N28.9 Status: Acute (5) Rhabdomyolysis ICD Code: M62.82 Status: Acute (6) Elevated troponin ICD Code: R79.89 Status: Acute (7) DVT (deep venous thrombosis) ICD Code: I82.409 Status: Acute (8) DM (diabetes mellitus) ICD Code: E11.9 Status: Chronic Assessment and Plan Sepsis, persistent MSSA bacteremia Suspected endocarditis despite negative CHUCHO. - continue antibiotics per ID. Ertapenem stop date 02/12. The pt may not be discharged from the hospital until then per ID. - Will need weekly CBC with differential, CMP as patient is on rifampin, CRP every week. 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 Dr. Alvarenga on consult for second opinion and has offered surgery, patient now stating he would like to stay at [facility] for surgery, however surgery on hold as there is now a question of patient's capacity as his mental status waxes and wanes as well as family's understanding of risks/benefits of proceeding with surgery, as patient has multiple other underlying serious infections and is clearly high risk for surgery. - Palliative care following to help facilitate goals of care and family communication. - Appreciate vascular surgery assistance. No surgery at this time. - Cont rifampin and IV antibiotics as per ID. Severe emphysematous UTI (recurrent or worsening as compared to previous CT done 09/2014) - with air in the extraperitoneal pelvis suggestive of possible developing fistula or bladder perforation. Urine cx growing E. Coli ESBL and staph aureus. - Plan is to continue Payan and antibiotics for some weeks and repeat CT in 2 weeks as usually extraperitoneal bladder perforation will heal on their own. - The patient is on ertapenem start date 01/12 for this infection. - Appreciate infectious disease and urology assistance. Continue with Payan. Continue antibiotics as per infectious disease. - 01/26 repeat urinalysis with yeast. Infectious disease started on fluconazole 01/29. Acute metabolic encephalopathy/ Hospital delirium Improving at times, however patient's daughter states he is nowhere near baseline. CT head 01/20 with no acute intracranial abnormality. Altered mental status likely secondary to systemic infection. - improving with treatment of underlying medical illnesses. - Cont ST. Severe, persistent hypokalemia Appears improved after replacement. - continue repletion 30 meq PO BID. - Stable. Monitor as necessary. Chronic urinary retention Possibly due to neurogenic bladder. Self catheterizes at home. - Continue Payan as per urology. Urology recommends suprapubic catheter in the future as outpatient. Acute on Chronic kidney injury: Creatinine 3.55 on admission. Improved. Relatively stable. on IVF. - Continue to monitor renal function. Elevated Trop Trop 0.07, EKG w/ no acute changes. Likely secondary to worsening renal function. ECHO which showed EF 55-60%. Stress test showed " Small size, moderate severity nonreversible apical perfusion abnormality, low risk". Appreciate cardiology input. - medical management. DM type 2: Uncontrolled. Hgb A1c 8%. -Continue sliding scale w/ Accu-Cheks. -Continue to monitor. DVT of right upper popliteal and peroneal tributary, and of right upper extremity in the brachial vein. Appreciate hematology input. - Continue heparin drip until able to bridge to Coumadin. - Will need at least 3 months AC for provoked DVT. Severe protein calorie malnutrition Appreciate dietary recommendations. - Start 2500-calorie diabetic diet. Glucerna shakes 3 times a day. - Consider starting Megace or Marinol. DVT prophylaxis: Patient is on therapeutic treatment for DVT. 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 -will need continued IV antibiotics as per infectious disease-2 more weeks of IV ertapenem, Ancef IV, plus rifampin for 6 weeks, followed by oral antibiotic suppression ( such as doxycycline) - patient apparently cannot go on IV ertapenem, we'll need to stay in hospital to complete course. Infectious disease will need to clear at time of discharge. -Appreciate case management assistance Problem Qualifiers (1) Sepsis: Qualified Code: A41.01 - Sepsis due to Methicillin susceptible Staphylococcus aureus (2) DVT (deep venous thrombosis): Qualified Code: I82.431 - Deep vein thrombosis (DVT) of popliteal vein of right lower extremity, unspecified chronicity (3) DM (diabetes mellitus): Jarvis Pickard DO Feb 01, 2016 15:42
[2016-02-01 16:00] VITALS: BP 167/98; PULSE 118; RESP 18; TEMP 99.8; O2SAT 95
[2016-02-01] MEDS ORDERED: WARFARIN SOD 3 MG TAB PO SCH (16:00)
[2016-02-01] MEDS: SODIUM BICARBONATE 8.4% INJ 100 MEQ in SODIUM CHLOR 0.9% 1000 ML INJ 1,000 ML IV SCH (17:22)
[2016-02-01 19:05] LABS: APTT (PATIENT) 29.3 SEC (24.3-30.1)
[2016-02-01 20:00] VITALS: BP 165/92; PULSE 112; RESP 18; TEMP 99.8; O2SAT 98
[2016-02-01] MEDS: ATORVASTATIN 40 MG TAB PO SCH (22:08)
[2016-02-01] MEDS: INSULIN DETEMIR 100 UNITS/ML VIAL SQ SCH (22:09)
[2016-02-02] VITALS: BP 167/94; PULSE 116; RESP 17; TEMP 98.6; O2SAT 96
[2016-02-02 01:04] LABS: APTT (PATIENT) 48.9 SEC (24.3-30.1)
[2016-02-02 04:00] VITALS: BP 168/92; PULSE 106; RESP 17; TEMP 98; O2SAT 95
[2016-02-02] MEDS: INSULIN ASPART SUPPLEMENTAL SCALE SQ SCH ×4 (05:40→20:54)
[2016-02-02] MEDS: ceFAZolin 2 GM PREMIX 50 ML IV SCH ×3 (05:40→21:04)
[2016-02-02 06:41] LABS: HEMATOCRIT 29.3 % (39.0-51.0); MEAN CELL VOLUME 91.8 FL (80.0-100.0); MEAN CORPUSCULAR HEMOGLOBIN 30.5 PG (27.0-34.0); MEAN CORPUSCULAR HGB CONC 33.2 % (32.0-36.0); PLATELET COUNT 297 TH/MM3 (150-450); RED BLOOD COUNT 3.19 MIL/MM3 (4.50-5.90); RED CELL DISTRIBUTION WIDTH 17.2 % (11.6-17.2); REVIEW FLAG FINAL; WHITE BLOOD COUNT 10.9 TH/MM3 (4.0-11.0)
[2016-02-02 07:06] LABS: INTERNATIONAL NORMALIZED RATIO 1.5 RATIO; PROTHROMBIN TIME - PATIENT 17.4 SEC (9.8-11.6)
[2016-02-02 07:11] LABS: BICARBONATE 30.7 MEQ/L (21.0-32.0); MAGNESIUM 1.7 MG/DL (1.5-2.5); POTASSIUM 3.3 MEQ/L (3.5-5.1)
[2016-02-02 08:00] VITALS: BP 193/122; PULSE 73; RESP 20; TEMP 98.6; O2SAT 95
[2016-02-02] MEDS: FLUCONAZOLE 100 MG TAB PO SCH (10:15)
[2016-02-02] MEDS: CALCIUM CARBONATE 500 MG CHEWABLE TAB CHEW SCH ×2 (10:16→20:55)
[2016-02-02] MEDS: ACETAMINOPHEN/HYDROcodone 325 MG/5 MG TAB PO PRN ×2 (10:16→17:34)
[2016-02-02] MEDS: RIFAMPIN 150 MG CAP PO SCH ×2 (10:16→20:54)
[2016-02-02] MEDS: amLODIPine BESYLATE 5 MG TAB PO SCH (10:16)
[2016-02-02] MEDS: POTASSIUM CHLORIDE 10 MEQ CONTROLLED RELEASE TAB PO SCH ×2 (10:16→20:55)
[2016-02-02] MEDS: SODIUM CHLORIDE 0.9% FLUSH 5 ML FLUSH FLUSH SCH ×2 (10:18→20:55)
[2016-02-02] MEDS: ENALAPRILAT 1.25 MG/ML VIAL IV PUSH PRN (10:19)
[2016-02-02] MEDS: LACTATED RINGER'S 1000 ML IV SCH (11:00)
[2016-02-02 12:00] VITALS: BP 169/105; PULSE 111; RESP 18; TEMP 96.5; O2SAT 97
[2016-02-02] MEDS: ERTAPENEM INJ 1,000 MG in SODIUM CHLORIDE 0.9% INJ 100 ML IV SCH (12:07)
[2016-02-02] MEDS: SODIUM BICARBONATE 8.4% INJ 100 MEQ in SODIUM CHLOR 0.9% 1000 ML INJ 1,000 ML IV SCH (12:16)
[2016-02-02] MEDS ORDERED: amLODIPine BESYLATE 5 MG TAB PO ONE (13:15)
[2016-02-02] MEDS: WARFARIN SOD 2.5 MG TAB PO SCH (15:00)
[2016-02-02] MEDS ORDERED: WARFARIN SOD 2 MG TAB PO SCH (16:00)
[2016-02-02] MEDS ORDERED: POTASSIUM CHLORIDE 25 MEQ EFFERVESCENT TAB PO ONE (17:00)
--- NOTE | 2016-02-02 17:08 | HHI.PR ---
Subjective Remarks The patient was a little lethargic. He minimally answer questions. He had no acute complaints. Objective Vitals Vital Signs Date Time Temp Pulse Resp B/P Pulse Ox O2 Delivery O2 Flow Rate FiO2 02/02/16 12:00 96.5 111 18 169/105 97 02/02/16 08:00 98.6 73 20 193/122 95 02/02/16 04:00 98.0 106 17 168/92 95 02/02/16 00:00 98.6 116 17 167/94 96 02/01/16 20:00 99.8 112 18 165/92 98 I/O 02/01/16 02/01/16 02/01/16 02/02/16 02/02/16 02/02/16 07:00 15:00 23:00 07:00 15:00 23:00 Intake Total 500 ml 1396 ml 240 ml 905 ml Output Total 600 ml 800 ml 1150 ml 200 ml 1200 ml Balance -600 ml -300 ml 246 ml -200 ml -960 ml 905 ml Intake Oral 500 ml 240 ml 240 ml IV Total 1156 ml 821 ml Other 84 ml Output Urine Total 600 ml 800 ml 1150 ml 200 ml 1200 ml # Bowel Movements 2 Result Diagram: 02/02/16 0620 02/02/16 0620 Imaging Last Impressions Chest X-Ray 02/01/16 0000 Signed Impressions: Service Date/Time: Monday, February 01, 2016 10:18 - CONCLUSION: 1. Interval placement of left-sided PICC line. 2. No acute cardiopulmonary disease. Jarvis Pathak MD Lower Extremity Ultrasound 01/24/16 0426 Signed Impressions: Service Date/Time: Sunday, January 24, 2016 11:48 - CONCLUSION: 1. Significant decrease in the perianastomotic fluid collection Shon Mancilla MD Abdomen/Pelvis CT 01/23/16 0600 Signed Impressions: Service Date/Time: January 09:35 - CONCLUSION: 1. 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 2. Diverticulosis without evidence of diverticulitis. 3. Small bilateral effusions Shon Mancilla MD Head CT 01/21/16 0000 Signed Impressions: Service Date/Time: Thursday, January 21, 2016 10:58 - CONCLUSION: 1. No acute intracranial abnormality is identified. 2. Chronic changes include mild cerebral atrophy and periventricular white matter low attenuation characteristic of chronic microvascular ischemia. Additionally, there is encephalomalacia in the right frontal lobe likely related to prior ischemia. 3. 9 mm extra-axial ossification in the right parietal high convexity may represent a calcified meningioma. Jayce Peck MD Upper Extremity Ultrasound 01/20/16 0000 Signed Impressions: Service Date/Time: Wednesday, January 20, 2016 12:05 - CONCLUSION: Venous mapping as detailed above. John Mills Jr., MD Lower Extremity CT 01/19/16 0000 Signed Impressions: Service Date/Time: Wednesday, January 20, 2016 08:25 - CONCLUSION: 1. Abnormal cortical thickening involving tibia and fibula. This may reflect osteomyelitis. If there is necessity for further evaluation contrast-enhanced MRI is recommended. Shon Mancilla MD Cervical Spine CT 01/15/16 0000 Signed Impressions: Service Date/Time: Friday, January 15, 2016 15:51 - CONCLUSION: No abscess observed. John Mills Jr., MD Upper Extremity CT 01/14/16 0000 Signed Impressions: Service Date/Time: Friday, January 15, 2016 16:08 - CONCLUSION: Small olecranon spur. Intact bony structures. No evidence of fluid collection or abscess formation Arian Stone MD Elbow X-Ray 01/14/16 0000 Signed Impressions: Service Date/Time: Thursday, January 14, 2016 13:05 - CONCLUSION: Possible soft tissue swelling overlying the olecranon. Otherwise negative exam Arian Stone MD Chest CT 01/14/16 0000 Signed Impressions: Service Date/Time: Thursday, January 14, 2016 15:37 - CONCLUSION: Right lower lobe interstitial change with a peripheral wedge shaped triangular area of parenchymal consolidation and associated small pleural effusion. Arian Stone MD Myocardial Perfusion Scan Nuc Med 01/13/16 0000 Signed Impressions: Service Date/Time: Wednesday, January 13, 2016 10:52 - CONCLUSION: Small size, moderate severity nonreversible apical perfusion abnormality. RISK CATEGORY: Low (<1%% Annual Mortality Rate) Jayce Ham MD Shoulder X-Ray 01/12/16 0000 Signed Impressions: Service Date/Time: Tuesday, January 12, 2016 09:24 - CONCLUSION: 1. No acute fracture or subluxation of the left shoulder. 2. Probably an old fracture of the distal clavicle, healed. 3. 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 Jayce Ng MD Knee X-Ray 01/11/16 4008 Signed Impressions: Service Date/Time: Monday, January 11, 2016 16:43 - CONCLUSION: Small joint effusion. Jessica Blackburn MD Objective Remarks GENERAL: Cachectic. Appears comfortable. SKIN: Warm and dry. HEAD: Normocephalic. EYES: No scleral icterus. No injection or drainage. NECK: Supple, trachea midline. No JVD. CARDIOVASCULAR: Regular rate and rhythm without murmurs, gallops, or rubs. RESPIRATORY: Breath sounds equal bilaterally. No accessory muscle use. GASTROINTESTINAL: Abdomen soft, non-tender, nondistended. MUSCULOSKELETAL: No cyanosis. trace right lower extremity edema Patient has multiple non-confluent subcentimeter nonblanching purpuric macules on the plantar surface of the right foot slowly resolving. BACK: Nontender without obvious deformity. No CVA tenderness. PSYCH: Flattened affect. Medications and IVs Current Medications Medications (Trade) Dose Ordered Sig/Smith Route Start Time Stop Time Status Last Admin (NS Flush) 2 ml UNSCH PRN FLUSH 01/11/16 18:45 (NS Flush) 2 ml BID FLUSH 01/11/16 21:00 02/02/16 10:18 (Tylenol) 650 mg Q4H PRN PO 01/11/16 18:45 01/14/16 18:25 (Dulcolax Supp) 10 mg DAILY PRN ND 01/11/16 18:45 (Milk Of Magnesia Liq) 30 ml Q12H PRN PO 01/11/16 18:45 (Narcan Inj) 0.4 mg UNSCH PRN IV 01/11/16 18:45 (D50w (Vial) Inj) 25 ml UNSCH PRN IV PUSH 01/11/16 19:00 (Glucagon Inj) 1 mg UNSCH PRN OTHER 01/11/16 19:00 ([place] 5-325 Mg) 1 tab Q4H PRN PO 01/11/16 19:15 02/02/16 10:16 (Morphine Inj) 2 mg Q3H PRN IV PUSH 01/11/16 19:15 01/31/16 21:43 (Heparin Inj) 5,000 units UNSCH PRN IV 01/12/16 01:15 Heparin Sodium (Porcine) 2500 units 2,500 units UNSCH PRN IV 01/12/16 01:15 01/12/16 02:48 (Heparin-D5W Inj) 250 ml @ 0 mls/hr TITRATE IV 01/11/16 19:15 02/01/16 01:48 Calcium Carbonate 500 mg 500 mg Q12HR CHEW 01/13/16 09:00 02/02/16 10:16 Ertapenem 1000 mg/ Sodium Chloride 100 ml @ 200 mls/hr Q24H IV 01/13/16 12:00 02/13/16 11:59 02/02/16 12:07 (Ancef 2 Gm Premix) 50 ml @ 100 mls/hr Q8H IV 01/14/16 14:00 02/02/16 15:01 Atorvastatin Calcium 40 mg 40 mg HS PO 01/15/16 21:00 02/01/16 22:08 (Lr 1000 ml Inj) 1,000 ml @ 30 mls/hr Q24H IV 01/15/16 11:00 (Rifampin) 150 mg Q12HR PO 01/15/16 13:00 02/02/16 10:16 (Zofran Inj) 4 mg Q6HR PRN IV PUSH 01/22/16 00:30 (Pill Splitter) 1 ea UNSCH PRN OTHER 01/22/16 08:15 (KCl) 30 meq Q12HR PO 01/23/16 09:00 02/02/16 10:16 (Vasotec Inj) 1.25 mg Q6H PRN IV PUSH 01/23/16 13:15 02/02/16 10:19 Insulin Detemir 5 units 5 units HS SQ 01/26/16 21:45 02/01/16 22:09 (Coumadin Consult Pharmacy) 0 ml @ 0 mls/hr UNSCH OTHER 01/28/16 14:15 (Diflucan) 100 mg DAILY PO 01/30/16 09:00 02/02/16 10:15 (Coumadin) 2.5 mg DAILY@16 PO 02/02/16 16:00 02/02/16 15:00 (Norvasc) 10 mg DAILY PO 02/03/16 09:00 A/P Problem List: (1) Sepsis ICD Code: A41.9 Status: Resolved (2) UTI (urinary tract infection) ICD Code: N39.0 Status: Acute (3) Neurogenic bladder ICD Code: N31.9 Status: Acute (4) Acute on chronic renal insufficiency ICD Code: N28.9 Status: Acute (5) Rhabdomyolysis ICD Code: M62.82 Status: Acute (6) Elevated troponin ICD Code: R79.89 Status: Acute (7) DVT (deep venous thrombosis) ICD Code: I82.409 Status: Acute (8) DM (diabetes mellitus) ICD Code: E11.9 Status: Chronic Assessment and Plan Sepsis, persistent MSSA bacteremia Suspected endocarditis despite negative CHUCHO. - continue antibiotics per ID. Ertapenem stop date 02/12. The pt may not be discharged from the hospital until then per ID. - Will need weekly CBC with differential, CMP as patient is on rifampin, CRP every week. 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 Dr. Alvarenga on consult for second opinion and has offered surgery, patient now stating he would like to stay at [facility] for surgery, however surgery on hold as there is now a question of patient's capacity as his mental status waxes and wanes as well as family's understanding of risks/benefits of proceeding with surgery, as patient has multiple other underlying serious infections and is clearly high risk for surgery. - Palliative care following to help facilitate goals of care and family communication. - Appreciate vascular surgery assistance. No surgery at this time. - Cont rifampin and IV antibiotics as per ID. Severe emphysematous UTI (recurrent or worsening as compared to previous CT done 09/2014) - with air in the extraperitoneal pelvis suggestive of possible developing fistula or bladder perforation. Urine cx growing E. Coli ESBL and staph aureus. - Plan is to continue Payan and antibiotics for some weeks and repeat CT in 2 weeks as usually extraperitoneal bladder perforation will heal on their own. - The patient is on ertapenem start date 01/12 for this infection. - Appreciate infectious disease and urology assistance. Continue with Payan. Continue antibiotics as per infectious disease. - 01/26 repeat urinalysis with yeast. Infectious disease started on fluconazole 01/29. Acute metabolic encephalopathy/ Hospital delirium Improving at times, however patient's daughter states he is nowhere near baseline. CT head 01/20 with no acute intracranial abnormality. Altered mental status likely secondary to systemic infection. - improving with treatment of underlying medical illnesses. - Cont ST. Severe, persistent hypokalemia Appears improved after replacement. - continue repletion 30 meq PO BID. Additional KCl given 02/01. Chronic urinary retention Possibly due to neurogenic bladder. Self catheterizes at home. - Continue Payan as per urology. Urology recommends suprapubic catheter in the future as outpatient. Acute on Chronic kidney injury: Creatinine 3.55 on admission. Improved. Stable 02/01. - Continue to monitor renal function. - 1 L 1/2 NS ordered 02/01. Elevated Trop Trop 0.07, EKG w/ no acute changes. Likely secondary to worsening renal function. ECHO which showed EF 55-60%. Stress test showed " Small size, moderate severity nonreversible apical perfusion abnormality, low risk". Appreciate cardiology input. - medical management. DM type 2: Uncontrolled. Hgb A1c 8%. -Continue sliding scale w/ Accu-Cheks. -Continue to monitor. DVT of right upper popliteal and peroneal tributary, and of right upper extremity in the brachial vein. Appreciate hematology input. - Continue heparin drip until INR therapeutic. - Will need at least 3 months AC for provoked DVT. Severe protein calorie malnutrition Appreciate dietary recommendations. - Start 2500-calorie diabetic diet. Glucerna shakes 3 times a day. - Consider starting Megace or Marinol. DVT prophylaxis: Patient is on therapeutic treatment for DVT. 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 -will need continued IV antibiotics as per infectious disease-2 more weeks of IV ertapenem, Ancef IV, plus rifampin for 6 weeks, followed by oral antibiotic suppression ( such as doxycycline) - patient apparently cannot go on IV ertapenem, we'll need to stay in hospital to complete course. Infectious disease will need to clear at time of discharge. -Appreciate case management assistance Problem Qualifiers (1) Sepsis: Qualified Code: A41.01 - Sepsis due to Methicillin susceptible Staphylococcus aureus (2) DVT (deep venous thrombosis): Qualified Code: I82.431 - Deep vein thrombosis (DVT) of popliteal vein of right lower extremity, unspecified chronicity (3) DM (diabetes mellitus): Jarvis Pickard DO Feb 02, 2016 17:07
[2016-02-02] MEDS: SODIUM CHLOR 0.45% 1000 ML INJ 1,000 ML IV SCH (17:16)
[2016-02-02 20:00] VITALS: BP 157/77; PULSE 110; RESP 16; TEMP 98.6; O2SAT 94
[2016-02-02] MEDS: ATORVASTATIN 40 MG TAB PO SCH (20:54)
[2016-02-02] MEDS: INSULIN DETEMIR 100 UNITS/ML VIAL SQ SCH (20:54)
[2016-02-02] MEDS: SODIUM CHLORIDE 0.9% FLUSH 5 ML FLUSH FLUSH PRN (20:55)
[2016-02-03] VITALS: BP 165/88; PULSE 108; RESP 16; TEMP 98.2; O2SAT 95
[2016-02-03 04:00] VITALS: BP 143/81; PULSE 102; RESP 16; TEMP 98; O2SAT 95
[2016-02-03] MEDS: SODIUM CHLOR 0.45% 1000 ML INJ 1,000 ML IV SCH (04:05)
[2016-02-03] MEDS: SODIUM CHLORIDE 0.9% FLUSH 5 ML FLUSH FLUSH PRN (04:06)
[2016-02-03] MEDS: HEPARIN-D5W INJ 250 ML IV SCH (04:08)
[2016-02-03] MEDS: ACETAMINOPHEN/HYDROcodone 325 MG/5 MG TAB PO PRN ×3 (04:11→17:41)
[2016-02-03] MEDS: INSULIN ASPART SUPPLEMENTAL SCALE SQ SCH ×4 (04:37→21:34)
[2016-02-03] MEDS: ceFAZolin 2 GM PREMIX 50 ML IV SCH ×3 (06:31→21:36)
[2016-02-03 07:15] LABS: APTT (PATIENT) 52.9 SEC (24.3-30.1); INTERNATIONAL NORMALIZED RATIO 1.7 RATIO; PROTHROMBIN TIME - PATIENT 19.3 SEC (9.8-11.6)
[2016-02-03 08:00] VITALS: BP 151/87; PULSE 102; RESP 18; TEMP 96.9; O2SAT 96
[2016-02-03 08:02] LABS: BICARBONATE 29.6 MEQ/L (21.0-32.0); MAGNESIUM 1.7 MG/DL (1.5-2.5); POTASSIUM 3.5 MEQ/L (3.5-5.1)
[2016-02-03] MEDS: SODIUM CHLORIDE 0.9% FLUSH 5 ML FLUSH FLUSH SCH ×2 (09:00→21:41)
[2016-02-03] MEDS: RIFAMPIN 150 MG CAP PO SCH ×2 (10:40→21:37)
[2016-02-03] MEDS: FLUCONAZOLE 100 MG TAB PO SCH (10:40)
[2016-02-03] MEDS: POTASSIUM CHLORIDE 10 MEQ CONTROLLED RELEASE TAB PO SCH ×2 (10:40→21:36)
[2016-02-03] MEDS: CALCIUM CARBONATE 500 MG CHEWABLE TAB CHEW SCH ×2 (10:41→21:36)
[2016-02-03 12:00] VITALS: BP 140/63; PULSE 102; RESP 16; TEMP 97.4; O2SAT 97
--- NOTE | 2016-02-03 12:01 | HHI.PR ---
Subjective Remarks The patient was resting comfortably in bed. He said he knew he had several infections. He says he doesn't have much of an appetite. He says his mood is okay. Discussed with nursing. Objective Vitals Vital Signs Date Time Temp Pulse Resp B/P Pulse Ox O2 Delivery O2 Flow Rate FiO2 02/03/16 08:00 96.9 102 18 151/87 96 02/03/16 04:00 98.0 102 16 143/81 95 02/03/16 00:00 98.2 108 16 165/88 95 02/02/16 20:00 98.6 110 16 157/77 94 02/02/16 12:00 96.5 111 18 169/105 97 I/O 02/02/16 02/02/16 02/02/16 02/03/16 02/03/16 02/03/16 06:59 14:59 22:59 06:59 14:59 22:59 Intake Total 1265 ml 1165 ml Output Total 200 ml 1200 ml 900 ml Balance -200 ml -1200 ml 365 ml 1165 ml Intake Oral 360 ml IV Total 821 ml 1165 ml Other 84 ml Output Urine Total 200 ml 1200 ml 900 ml # Bowel Movements 1 1 Result Diagram: 02/02/16 0620 02/03/16 0437 Imaging Last Impressions Chest X-Ray 02/01/16 0000 Signed Impressions: Service Date/Time: Monday, February 01, 2016 10:18 - CONCLUSION: 1. Interval placement of left-sided PICC line. 2. No acute cardiopulmonary disease. Jarvis Pathak MD Lower Extremity Ultrasound 01/24/16 0426 Signed Impressions: Service Date/Time: Sunday, January 24, 2016 11:48 - CONCLUSION: 1. Significant decrease in the perianastomotic fluid collection Shon Mancilla MD Abdomen/Pelvis CT 01/23/16 0600 Signed Impressions: Service Date/Time: January 09:35 - CONCLUSION: 1. 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 2. Diverticulosis without evidence of diverticulitis. 3. Small bilateral effusions Shon Mancilla MD Head CT 01/21/16 0000 Signed Impressions: Service Date/Time: Thursday, January 21, 2016 10:58 - CONCLUSION: 1. No acute intracranial abnormality is identified. 2. Chronic changes include mild cerebral atrophy and periventricular white matter low attenuation characteristic of chronic microvascular ischemia. Additionally, there is encephalomalacia in the right frontal lobe likely related to prior ischemia. 3. 9 mm extra-axial ossification in the right parietal high convexity may represent a calcified meningioma. Jayce Peck MD Upper Extremity Ultrasound 01/20/16 0000 Signed Impressions: Service Date/Time: Wednesday, January 20, 2016 12:05 - CONCLUSION: Venous mapping as detailed above. John Mills Jr., MD Lower Extremity CT 01/19/16 0000 Signed Impressions: Service Date/Time: Wednesday, January 20, 2016 08:25 - CONCLUSION: 1. Abnormal cortical thickening involving tibia and fibula. This may reflect osteomyelitis. If there is necessity for further evaluation contrast-enhanced MRI is recommended. Shon Mancilla MD Cervical Spine CT 01/15/16 0000 Signed Impressions: Service Date/Time: Friday, January 15, 2016 15:51 - CONCLUSION: No abscess observed. John Mills Jr., MD Upper Extremity CT 01/14/16 0000 Signed Impressions: Service Date/Time: Friday, January 15, 2016 16:08 - CONCLUSION: Small olecranon spur. Intact bony structures. No evidence of fluid collection or abscess formation Arian Stone MD Elbow X-Ray 01/14/16 0000 Signed Impressions: Service Date/Time: Thursday, January 14, 2016 13:05 - CONCLUSION: Possible soft tissue swelling overlying the olecranon. Otherwise negative exam Arian Stone MD Chest CT 01/14/16 0000 Signed Impressions: Service Date/Time: Thursday, January 14, 2016 15:37 - CONCLUSION: Right lower lobe interstitial change with a peripheral wedge shaped triangular area of parenchymal consolidation and associated small pleural effusion. Arian Stone MD Myocardial Perfusion Scan Nuc Med 01/13/16 0000 Signed Impressions: Service Date/Time: Wednesday, January 13, 2016 10:52 - CONCLUSION: Small size, moderate severity nonreversible apical perfusion abnormality. RISK CATEGORY: Low (<1%% Annual Mortality Rate) Jayce Ham MD Shoulder X-Ray 01/12/16 0000 Signed Impressions: Service Date/Time: Tuesday, January 12, 2016 09:24 - CONCLUSION: 1. No acute fracture or subluxation of the left shoulder. 2. Probably an old fracture of the distal clavicle, healed. 3. 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 Jayce Ng MD Knee X-Ray 01/11/16 2517 Signed Impressions: Service Date/Time: Monday, January 11, 2016 16:43 - CONCLUSION: Small joint effusion. Jessica Blackburn MD Objective Remarks GENERAL: Cachectic. Appears comfortable. SKIN: Warm and dry. HEAD: Normocephalic. EYES: No scleral icterus. No injection or drainage. NECK: Supple, trachea midline. No JVD. CARDIOVASCULAR: Regular rate and rhythm without murmurs, gallops, or rubs. RESPIRATORY: Breath sounds equal bilaterally. No accessory muscle use. GASTROINTESTINAL: Abdomen soft, non-tender, nondistended. MUSCULOSKELETAL: No cyanosis. trace right lower extremity edema Patient has multiple non-confluent subcentimeter nonblanching purpuric macules on the plantar surface of the right foot slowly resolving. BACK: Nontender without obvious deformity. No CVA tenderness. PSYCH: Flattened affect. Medications and IVs Current Medications Medications (Trade) Dose Ordered Sig/Smith Route Start Time Stop Time Status Last Admin (NS Flush) 2 ml UNSCH PRN FLUSH 01/11/16 18:45 02/03/16 04:06 (NS Flush) 2 ml BID FLUSH 01/11/16 21:00 02/03/16 09:00 (Tylenol) 650 mg Q4H PRN PO 01/11/16 18:45 01/14/16 18:25 (Dulcolax Supp) [address] 01/11/16 18:45 (Milk Of Magnesia Liq) 30 ml Q12H PRN PO 01/11/16 18:45 (Narcan Inj) 0.4 mg UNSCH PRN IV 01/11/16 18:45 (D50w (Vial) Inj) 25 ml UNSCH PRN IV PUSH 01/11/16 19:00 (Glucagon Inj) 1 mg UNSCH PRN OTHER 01/11/16 19:00 (Edwards 5-325 Mg) 1 tab Q4H PRN PO 01/11/16 19:15 02/03/16 10:39 (Morphine Inj) 2 mg Q3H PRN IV PUSH 01/11/16 19:15 01/31/16 21:43 (Heparin Inj) 5,000 units UNSCH PRN IV 01/12/16 01:15 Heparin Sodium (Porcine) 2500 units 2,500 units UNSCH PRN IV 01/12/16 01:15 01/12/16 02:48 (Heparin-D5W Inj) 250 ml @ 0 mls/hr TITRATE IV 01/11/16 19:15 02/03/16 04:08 Calcium Carbonate 500 mg 500 mg Q12HR CHEW 01/13/16 09:00 02/03/16 10:41 Ertapenem 1000 mg/ Sodium Chloride 100 ml @ 200 mls/hr Q24H IV 01/13/16 12:00 02/13/16 11:59 02/02/16 12:07 (Ancef 2 Gm Premix) 50 ml @ 100 mls/hr Q8H IV 01/14/16 14:00 02/03/16 06:31 Atorvastatin Calcium 40 mg 40 mg HS PO 01/15/16 21:00 02/02/16 20:54 (Lr 1000 ml Inj) 1,000 ml @ 30 mls/hr Q24H IV 01/15/16 11:00 (Rifampin) 150 mg Q12HR PO 01/15/16 13:00 02/03/16 10:40 (Zofran Inj) 4 mg Q6HR PRN IV PUSH 01/22/16 00:30 (Pill Splitter) 1 ea UNSCH PRN OTHER 01/22/16 08:15 (KCl) 30 meq Q12HR PO 01/23/16 09:00 02/03/16 10:40 (Vasotec Inj) 1.25 mg Q6H PRN IV PUSH 01/23/16 13:15 02/02/16 10:19 Insulin Detemir 5 units 5 units HS SQ 01/26/16 21:45 02/02/16 20:54 (Coumadin Consult Pharmacy) 0 ml @ 0 mls/hr UNSCH OTHER 01/28/16 14:15 (Diflucan) 100 mg DAILY PO 01/30/16 09:00 02/03/16 10:40 (Coumadin) 2.5 mg DAILY@16 PO 02/02/16 16:00 02/02/16 15:00 (Norvasc) 10 mg DAILY PO 02/03/16 09:00 02/03/16 10:40 (NS Flush) See Protocol DAILY IVF 02/03/16 09:00 02/03/16 09:00 (NS Flush) See Protocol UNSCH PRN IVF 02/03/16 02:15 (Heparin Central Flush) See Protocol DAILY IVF 02/03/16 09:00 02/03/16 10:41 (Heparin Central Flush) See Protocol UNSCH PRN IVF 02/03/16 02:15 02/03/16 04:35 (NS Flush) See Protocol UNSCH PRN IVF 02/03/16 02:15 02/03/16 04:06 A/P Problem List: (1) Sepsis ICD Code: A41.9 Status: Resolved (2) UTI (urinary tract infection) ICD Code: N39.0 Status: Acute (3) Neurogenic bladder ICD Code: N31.9 Status: Acute (4) Acute on chronic renal insufficiency ICD Code: N28.9 Status: Acute (5) Rhabdomyolysis ICD Code: M62.82 Status: Acute (6) Elevated troponin ICD Code: R79.89 Status: Acute (7) DVT (deep venous thrombosis) ICD Code: I82.409 Status: Acute (8) DM (diabetes mellitus) ICD Code: E11.9 Status: Chronic Assessment and Plan Sepsis, persistent MSSA bacteremia Suspected endocarditis despite negative CHUCHO. - continue antibiotics per ID. Ertapenem stop date 02/12. The pt may not be discharged from the hospital until then per ID. - Will need weekly CBC with differential, CMP as patient is on rifampin, CRP every week. 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 Dr. Alvarenga on consult for second opinion and has offered surgery, patient now stating he would like to stay at [facility] for surgery, however surgery on hold as there is now a question of patient's capacity as his mental status waxes and wanes as well as family's understanding of risks/benefits of proceeding with surgery, as patient has multiple other underlying serious infections and is clearly high risk for surgery. - Palliative care following to help facilitate goals of care and family communication. Family meeting scheduled for 02/02. Discussed with palliative care. - Appreciate vascular surgery assistance. No surgery at this time. - Continue antibiotics as per ID. Severe emphysematous UTI (recurrent or worsening as compared to previous CT done 09/2014) - with air in the extraperitoneal pelvis suggestive of possible developing fistula or bladder perforation. Urine cx growing E. Coli ESBL and staph aureus. - Plan is to continue Payan and antibiotics for some weeks and repeat CT in 2 weeks as usually extraperitoneal bladder perforation will heal on their own. - The patient is on ertapenem start date 01/12 for this infection. - Appreciate infectious disease and urology assistance. Continue with Payan. Continue antibiotics as per infectious disease. - 01/26 repeat urinalysis with yeast. Infectious disease started on fluconazole 01/29. Acute metabolic encephalopathy/ Hospital delirium Improving at times, however patient's daughter states he is nowhere near baseline. CT head 01/20 with no acute intracranial abnormality. Altered mental status likely secondary to systemic infection. - improving with treatment of underlying medical illnesses. - Cont ST. Severe, persistent hypokalemia Appears improved after replacement. - continue repletion 30 meq PO BID. Additional KCl given 02/01. - follow BMP. Chronic urinary retention Possibly due to neurogenic bladder. Self catheterizes at home. - Continue Payan as per urology. Urology recommends suprapubic catheter in the future as outpatient. Acute on Chronic kidney injury: Creatinine 3.55 on admission. Improved. Stable 02/02. - Continue to monitor renal function. - 1 L 1/2 NS ordered 02/01. Elevated Trop Trop 0.07, EKG w/ no acute changes. Likely secondary to worsening renal function. ECHO which showed EF 55-60%. Stress test showed " Small size, moderate severity nonreversible apical perfusion abnormality, low risk". Appreciate cardiology input. - medical management. DM type 2 Hgb A1c 8%. - Continue sliding scale w/ Accu-Cheks. - Continue to monitor. DVT of right upper popliteal and peroneal tributary, and of right upper extremity in the brachial vein Appreciate hematology input. - Continue heparin drip until INR therapeutic. 1.7 02/02. - Will need at least 3 months AC for provoked DVT. Severe protein calorie malnutrition Appreciate dietary recommendations. - Start 2500-calorie diabetic diet. Glucerna shakes 3 times a day. - Consider starting Megace or Marinol. DVT prophylaxis: Patient is on therapeutic treatment for DVT. Discharge Planning Awaiting family meeting with palliative care. Problem Qualifiers (1) Sepsis: Qualified Code: A41.01 - Sepsis due to Methicillin susceptible Staphylococcus aureus (2) DVT (deep venous thrombosis): Qualified Code: I82.431 - Deep vein thrombosis (DVT) of popliteal vein of right lower extremity, unspecified chronicity (3) DM (diabetes mellitus): Jarvis Pickard DO Feb 03, 2016 12:01
[2016-02-03] MEDS: ERTAPENEM INJ 1,000 MG in SODIUM CHLORIDE 0.9% INJ 100 ML IV SCH (12:28)
[2016-02-03 16:00] VITALS: BP 106/55; PULSE 78; RESP 18; TEMP 96.7; O2SAT 97
--- NOTE | 2016-02-03 16:40 | HHI.HCPN ---
Reason for visit a. To assist with evaluation and management of symptoms including: Encephalopathy,weakness b. To assist medical decision maker(s) with: better understanding of current medical conditions; weighing benefits/burdens of medical treatment options; making medical treatment decisions. . Subjective/Interval History Patient was seen and assessed in room 714. Also present patient's nurse. Patient is awake, very lethargic and weak. Very quiet. The patient remains intermittently confused. More alert at times, but the patient's daughter states he is still nowhere near his baseline. Reports moderate "aching" pain with movement. Patient states he really doesn't have much of an appetite. Collaborated with Dr. Pickard, case management and the patient's nurse. The patient's family had requested a meeting with palliative care today 02/03/16 because they wanted to consider transitioning to more comfort focused care. However upon speaking with the patient's daughter (Puja) via telephone, she indicates they have decided to continue on the long course of IV antibiotics so they would " know they gave him every chance" and if he experienced any complications they would reconsider medical treatment goals. PICC line has bee placed and the patient is awaiting placement. Per ID conversation with family: Option 1: Ancef IV plus rifapam for 6 weeks followed by oral antibiotics for 4 months as suppression. If there was recurrence, oral antibiotic suppression for life would be required after retreatment. Option 2: Ancef IV plus rifapam for 6 weeks followed by oral antibiotics for life, this option involves risk developing resistance and/or C. difficile. . . Family/friend interactions The patient's family had requested a meeting with palliative care today because they wanted to consider transitioning to more comfort focused care. However upon speaking with the patient's daughter (Puja) via telephone, she indicates they have decided to continue on the long course of IV antibiotics so they would " know they gave him every chance" and if he experienced any complications they would reconsider medical treatment goals. . Advance Directives Living Will: Never completed Health Care Surrogate: Never completed Durable Power of Trouble Locater: Never completed Advance Directive Specifics Significant change in goals: Patient's indicates they have decided to continue on the long course of IV antibiotics so they would " know they gave him every chance" and if he experienced any complications they would reconsider medical treatment goals. . Objective Vital Signs Date Time Temp Pulse Resp B/P Pulse Ox O2 Delivery O2 Flow Rate FiO2 02/03/16 12:00 97.4 102 16 140/63 97 02/03/16 08:00 96.9 102 18 151/87 96 02/03/16 04:00 98.0 102 16 143/81 95 02/03/16 00:00 98.2 108 16 165/88 95 02/02/16 20:00 98.6 110 16 157/77 94 Intake & Output 02/03/16 02/03/16 07:00 19:00 Intake Total 1285 ml 480 ml Output Total 900 ml 1100 ml Balance 385 ml -620 ml Intake Oral 120 ml 480 ml IV Total 1165 ml Output Urine Total 900 ml 1100 ml # Bowel Movements 1 . Physical Exam CONSTITUTIONAL/GENERAL: Frail, elderly-appearing patient in no apparent distress. TUBES/LINES/DRAINS: PIV x 2/ PICC line, Payan catheter CARDIOVASCULAR: Regular rate and rhythm, + murmur. RESPIRATORY/CHEST: Symmetric, unlabored respirations on room air. Clear to auscultation. Breath sounds equal bilaterally, no accessory muscle use GASTROINTESTINAL: Abdomen soft, flat, non-tender, nondistended. No hepato- splenomegaly, or palpable masses. Bowel sounds present. NEUROLOGICAL: Awake but very lethargic Speech is very soft . Patient is slow to answer questions, remains intermittently confused. PSYCHIATRIC: No obvious anxiety/depression . Diagnostic Tests Laboratory Laboratory Tests Test 01/31/16 02/01/16 02/01/16 02/02/16 23:06 05:35 18:33 00:30 Activated Partial 48.1 SEC 39.9 SEC 29.3 SEC 48.9 SEC Thromboplast Time (24.3-30.1) (24.3-30.1) (24.3-30.1) (24.3-30.1) White Blood Count 9.2 TH/MM3 (4.0-11.0) Red Blood Count 3.08 MIL/MM3 (4.50-5.90) Hemoglobin 9.8 GM/DL (13.0-17.0) Hematocrit 28.2 % (39.0-51.0) Mean Corpuscular Volume 91.5 FL (80.0-100.0) Mean Corpuscular Hemoglobin 31.8 PG (27.0-34.0) Mean Corpuscular Hemoglobin 34.7 % Concent (32.0-36.0) Red Cell Distribution Width 16.3 % (11.6-17.2) Platelet Count 266 TH/MM3 (150-450) Mean Platelet Volume 7.8 FL (7.0-11.0) Prothrombin Time 18.0 SEC (9.8-11.6) Prothromb Time International 1.6 RATIO Ratio Sodium Level 143 MEQ/L (136-145) Potassium Level 3.6 MEQ/L (3.5-5.1) Chloride Level 104 MEQ/L (98-107) Carbon Dioxide Level 30.4 MEQ/L (21.0-32.0) Anion Gap 9 MEQ/L (5-15) Blood Urea Nitrogen 20 MG/DL (7-18) Creatinine 2.29 MG/DL (0.60-1.30) Estimat Glomerular Filtration 28 ML/MIN (>89) Rate Random Glucose 106 MG/DL (74-106) Calcium Level 8.7 MG/DL (8.5-10.1) Total Bilirubin 0.2 MG/DL (0.2-1.0) Aspartate Amino Transf 12 U/L (15-37) (AST/SGOT) Alanine Aminotransferase LESS THAN 6 (ALT/SGPT) U/L (12-78) Alkaline Phosphatase 95 U/L (45-117) Total Protein 6.3 GM/DL (6.4-8.2) Albumin 1.3 GM/DL (3.4-5.0) Test 02/02/16 02/03/16 06:20 04:37 White Blood Count 10.9 TH/MM3 (4.0-11.0) Red Blood Count 3.19 MIL/MM3 (4.50-5.90) Hemoglobin 9.7 GM/DL (13.0-17.0) Hematocrit 29.3 % (39.0-51.0) Mean Corpuscular Volume 91.8 FL (80.0-100.0) Mean Corpuscular Hemoglobin 30.5 PG (27.0-34.0) Mean Corpuscular Hemoglobin 33.2 % Concent (32.0-36.0) Red Cell Distribution Width 17.2 % (11.6-17.2) Platelet Count 297 TH/MM3 (150-450) Mean Platelet Volume 7.6 FL (7.0-11.0) Prothrombin Time 17.4 SEC 19.3 SEC (9.8-11.6) (9.8-11.6) Prothromb Time International 1.5 RATIO 1.7 RATIO Ratio Activated Partial 56.0 SEC 52.9 SEC Thromboplast Time (24.3-30.1) (24.3-30.1) Sodium Level 141 MEQ/L 139 MEQ/L (136-145) (136-145) Potassium Level 3.3 MEQ/L 3.5 MEQ/L (3.5-5.1) (3.5-5.1) Chloride Level 101 MEQ/L 101 MEQ/L (98-107) (98-107) Carbon Dioxide Level 30.7 MEQ/L 29.6 MEQ/L (21.0-32.0) (21.0-32.0) Anion Gap 9 MEQ/L (5-15) 8 MEQ/L (5-15) Blood Urea Nitrogen 21 MG/DL (7-18) 26 MG/DL (7-18) Creatinine 2.34 MG/DL 2.33 MG/DL (0.60-1.30) (0.60-1.30) Estimat Glomerular Filtration 28 ML/MIN (>89) 28 ML/MIN (>89) Rate Random Glucose 138 MG/DL 92 MG/DL (74-106) (74-106) Calcium Level 8.6 MG/DL 8.4 MG/DL (8.5-10.1) (8.5-10.1) Magnesium Level 1.7 MG/DL 1.7 MG/DL (1.5-2.5) (1.5-2.5) . Result Diagram: 02/02/16 0620 02/03/16 0437 Procedures 01/16 ultrasound-guided drainage of complex fluid around right femoral graft. Assessment and Plan Disease Oriented Problem List: (1) Sepsis (2) Acute on chronic renal insufficiency (3) UTI (urinary tract infection) (4) DM (diabetes mellitus) (5) Leukocytosis (6) DVT (deep venous thrombosis) (7) Heart murmur (8) Perivascular/Graft abcess (9) Emphysematous cystitis (10) Endocarditis Comment: Suspected endocarditis despite negative CHUCHO, concern for septic emboli (11) Neurogenic bladder (12) Hypokalemia Symptom Scale: (1) Encephalopathy (2) Pain Comment: Endorsed some pain on admission to lower extremities however, does not today during my exam Pertinent Non-Medical Issues Psychosocial:originally from [place] though has lived in [place] for many years. . Retired. Has one adult daughter whom he lives with. Has 3 grandchildren who also live with him and the daughter, school-aged. He participates in their care. Active prior to this hospitalization, enjoys golf. 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 His neurological status appears to wax and wane based on reports.Recommend Shared decision making involving the patient and his daughter . His daughter Puja is his only child and would be appropriate proxy per [place] statutes. Ethical issues impacting care: Important Contacts Puja Bose daughter [phone] Prognosis This patient was admitted for UTI, sepsis. Subsequently has had findings of fluid accumulation, questionable abscess around old bypass graft. Recommended for urgent surgery for removal of graft. Neurological status has waxed and waned, seems to have had an underlying old stroke. Given advanced age and recent recurrent illnesses does remain high risk for further complications and setbacks. If the patient elected not to undergo aggressive interventions such as surgeries to remove graft, etc. may be appropriate for hospice and comfort measures only if goals compatible. Code Status: Full Code Plan * Legal decision makerPatient appears to have some limited insight into conditions and options though at times seems to have fairly limited ability to weigh benefits/burdens for decision-making. His neurological status appears to wax and wane based on reports. Would recommend Shared decision making involving the patient and his daughter in any decision-making to ensure full understanding of associated benefits/burdens. His daughter Puja is his only child and would be appropriate proxy per [place] statutes. * Collaborated with Dr. Pickard, case management and the patient's nurse. * The patient's family had requested a meeting with palliative care today because they wanted to consider transitioning to more comfort focused care. However upon speaking with the patient's daughter (Puja) via telephone, she indicates they have decided to continue on the long course of IV antibiotics so they would " know they gave him every chance" and if he experienced any complications they would reconsider medical treatment goals. * SYMPTOMS --Encephalopathy: Neuro status seems to wax and wane, history of old CVA based on imaging in prior records. While he is oriented and for the most part appropriate appears decision-making would be best supported by a healthcare --Pain- Upon admission the patient endorsed some pain to lower extremities. Today 02/03/16 the patient reports moderate "aching" pain with movement. PRN morphine, Lititz available. Sparing requirements, palliative care will continue to monitor and make recommendations as appropriate. * Palliative care will continue to follow during hospital course as condition evolves, to assist patient/decision-maker with understanding of medical conditions, weighing benefits/burdens of treatment options, for clarification of goals of treatment. Additionally will assist with any symptoms of palliative concern . Attestation To help prompt me to consider important information that might be impacting today's encounter and assessment, information from prior notes written by myself or my colleagues may have been "brought forward" into today's note. My signature on this note, however, is an attestation that I personally performed the exam, history, and/or decision-making noted today, and, unless otherwise indicated, the interactions with patient, family, and staff as well as the review of records all occurred today. I also attest that the listed assessment and stated plan reflect my best clinical judgment today based on the combination of historical information, prior notes, and today's exam/ interactions. When time spent is documented, it refers only to time spent today by the signer, or if indicated, combined time spent today by collaborating physician/nurse practitioner. . Smiley Ledezma Feb 03, 2016 16:40
[2016-02-03] MEDS: WARFARIN SOD 2.5 MG TAB PO SCH (17:01)
[2016-02-03 20:00] VITALS: BP 169/87; PULSE 109; RESP 18; TEMP 98.8; O2SAT 97
[2016-02-03] MEDS: INSULIN DETEMIR 100 UNITS/ML VIAL SQ SCH (21:35)
[2016-02-03] MEDS: ATORVASTATIN 40 MG TAB PO SCH (21:36)
[2016-02-04] VITALS: BP 141/99; PULSE 102; RESP 18; TEMP 98.1; O2SAT 97
[2016-02-04 04:00] VITALS: BP 146/89; PULSE 112; RESP 18; TEMP 99.1; O2SAT 97
[2016-02-04] MEDS: INSULIN ASPART SUPPLEMENTAL SCALE SQ SCH ×4 (04:51→23:38)
[2016-02-04] MEDS: ceFAZolin 2 GM PREMIX 50 ML IV SCH ×3 (05:00→23:24)
[2016-02-04 06:05] LABS: HEMATOCRIT 28.7 % (39.0-51.0); MEAN CELL VOLUME 92.3 FL (80.0-100.0); MEAN CORPUSCULAR HEMOGLOBIN 31.5 PG (27.0-34.0); MEAN CORPUSCULAR HGB CONC 34.2 % (32.0-36.0); PLATELET COUNT 357 TH/MM3 (150-450); RED BLOOD COUNT 3.11 MIL/MM3 (4.50-5.90); RED CELL DISTRIBUTION WIDTH 16.9 % (11.6-17.2); REVIEW FLAG FINAL; WHITE BLOOD COUNT 10.8 TH/MM3 (4.0-11.0)
[2016-02-04 06:58] LABS: APTT (PATIENT) 57.2 SEC (24.3-30.1)
--- NOTE | 2016-02-04 07:50 | PD.ONC.PN ---
Subjective Subjective Remarks Denies any bleeding. Still weak. No CP/SOB. Objective Data Date Time Temp Pulse Resp B/P Pulse Ox O2 Delivery O2 Flow Rate FiO2 02/04/16 04:00 99.1 112 18 146/89 97 02/04/16 00:00 98.1 102 18 141/99 97 02/03/16 20:00 98.8 109 18 169/87 97 02/03/16 12:00 97.4 102 16 140/63 97 02/03/16 08:00 96.9 102 18 151/87 96 02/04/16 02/04/16 02/04/16 07:00 15:00 23:00 Intake Total 85 ml Output Total 800 ml Balance -715 ml Result Diagram: 02/04/16 0451 02/03/16 0437 Laboratory Results Laboratory Tests Test 02/04/16 02/04/16 04:51 06:09 White Blood Count 10.8 TH/MM3 Red Blood Count 3.11 MIL/MM3 Hemoglobin 9.8 GM/DL Hematocrit 28.7 % Mean Corpuscular Volume 92.3 FL Mean Corpuscular Hemoglobin 31.5 PG Mean Corpuscular Hemoglobin 34.2 % Concent Red Cell Distribution Width 16.9 % Platelet Count 357 TH/MM3 Mean Platelet Volume 8.3 FL Activated Partial 57.2 SEC Thromboplast Time Administered Medications Medications (Trade) Dose Ordered Sig/Smith Route PRN Reason Start Time Stop Time Status Last Admin Dose Admin IV Flush (NS Flush) 2 ml UNSCH PRN FLUSH FLUSH AFTER USING IV ACCESS 01/11/16 18:45 02/03/16 04:06 IV Flush (NS Flush) 2 ml BID FLUSH 01/11/16 21:00 02/03/16 21:41 Acetaminophen (Tylenol) 650 mg Q4H PRN PO FEVER/PAIN 1-2 01/11/16 18:45 01/14/16 18:25 Acetaminophen/ Hydrocodone Bitart ([place] 5-325 Mg) 1 tab Q4H PRN PO PAIN 3-5 01/11/16 19:15 02/03/16 17:41 Morphine Sulfate (Morphine Inj) 2 mg Q3H PRN IV PUSH PAIN 6-10 01/11/16 19:15 01/31/16 21:43 Heparin Sodium (Porcine) 2500 units 2,500 units UNSCH PRN IV APTT 25 TO 39 01/12/16 01:15 01/12/16 02:48 Heparin Sodium/ Dextrose (Heparin-D5W Inj) 250 ml @ 0 mls/hr TITRATE IV 01/11/16 19:15 02/03/16 04:08 Calcium Carbonate 500 mg 500 mg Q12HR CHEW 01/13/16 09:00 02/03/16 21:36 Ertapenem 1000 mg/ Sodium Chloride 100 ml @ 200 mls/hr Q24H IV 01/13/16 12:00 02/13/16 11:59 02/03/16 12:28 Cefazolin Sodium/ Dextrose (Ancef 2 Gm Premix) 50 ml @ 100 mls/hr Q8H IV 01/14/16 14:00 02/04/16 05:00 Atorvastatin Calcium (Lipitor) 40 mg HS PO 01/15/16 21:00 02/03/16 21:36 Rifampin (Rifampin) 150 mg Q12HR PO 01/15/16 13:00 02/03/16 21:37 Potassium Chloride (KCl) 30 meq Q12HR PO 01/23/16 09:00 02/03/16 21:36 Enalaprilat (Vasotec Inj) 1.25 mg Q6H PRN IV PUSH SBP> OR = 180, DBP> OR = 100 01/23/16 13:15 02/02/16 10:19 Insulin Detemir (Levemir Inj) 5 units HS SQ 01/26/16 21:45 02/03/16 21:35 Fluconazole (Diflucan) 100 mg DAILY PO 01/30/16 09:00 02/03/16 10:40 Warfarin Sodium (Coumadin) 2.5 mg DAILY@16 PO 02/02/16 16:00 02/03/16 17:01 Amlodipine Besylate (Norvasc) 10 mg DAILY PO 02/03/16 09:00 02/03/16 10:40 IV Flush (NS Flush) See Protocol DAILY IVF 02/03/16 09:00 02/03/16 09:00 Heparin Sodium (Porcine) (Heparin Central Flush) See Protocol DAILY IVF 02/03/16 09:00 02/03/16 10:41 Heparin Sodium (Porcine) (Heparin Central Flush) See Protocol UNSCH PRN IVF SEE PROTOCOL TABLE 02/03/16 02:15 02/04/16 04:53 IV Flush (NS Flush) See Protocol UNSCH PRN IVF SEE PROTOCOL TABLE 02/03/16 02:15 02/04/16 04:53 Objective Remarks GENERAL: Chronically ill appearing. Weak. SKIN: Warm and dry. HEAD: Normocephalic. EYES: No scleral icterus. No injection or drainage. NECK: Supple, trachea midline. No JVD or lymphadenopathy. LYMPHATIC: No adenopathy. CARDIOVASCULAR: Regular rate and rhythm without murmurs. RESPIRATORY: Breath sounds equal bilaterally. No accessory muscle use. GASTROINTESTINAL: Abdomen soft, non-tender, nondistended. EXTREMITIES: No cyanosis, or edema. RLE slightly tender. MUSCULOSKELETAL: Adequate muscle tone. NEUROLOGICAL: No obvious focal deficit. Awake, alert, and oriented x3. Assessment/Plan Problem List: (1) DVT (deep venous thrombosis) Status: Acute Plan: 02/04/16: On heparin and coumadin. No bleeding. INR was not therapeutic yet. Repeat INR pending. No LE edema. 01/28/16: continue heparin bridge to coumadin. d/w Dr. 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 No procedures are planned. We will start Coumadin at a low dose for DVT prevention (1mg po daily). Daily PT/INR. 01/24/16: INR improved to 1.2 today. continue heparin drip. await completion of all procedures before transitioning to oral therapy History --Right lower extremity deep venous thrombosis and right upper extremity deep venous thrombosis. --likely triggered by sepsis and immobility. --was laying on the floor for several hours the day prior to presentation. --also a possibility that he had a PICC line placed on the right upper extremity during his hospital stay at [facility] a week prior to presentation. --the thrombosis appeared to be provoked. (2) Sepsis Status: Resolved Plan: --d/t UTI and vascular graft --on multiple antibiotics. (3) Neurogenic bladder Status: Chronic Plan: --urology following. --Neurogenic bladder with recurrent urinary tract infection. --has been self-catheterizing. (4) Vascular graft infection Status: Acute Plan: --CTS following, no surgery recommended. Assessment 70y/o male with newly diagnosed DVT's, admitted with urosepsis. h/o Diabetes mellitus. Hepatitis C. He was receiving treatment at [facility]. Plan 1. continue heparin bridge to coumadin 2. monitor INR and CBC Problem Qualifiers (1) DVT (deep venous thrombosis): Qualified Code: I82.431 - Deep vein thrombosis (DVT) of popliteal vein of right lower extremity, unspecified chronicity (2) Sepsis: Qualified Code: A41.01 - Sepsis due to Methicillin susceptible Staphylococcus aureus Osbaldo Flowers MD Feb 04, 2016 07:50
[2016-02-04 08:00] VITALS: BP 119/80; PULSE 119; RESP 18; TEMP 98.3; O2SAT 98
--- NOTE | 2016-02-04 08:35 | RADRPT ---
EXAM DATE/TIME: 01/17/2016 16:03 [place] COMPARISON: No previous studies available for comparison. INDICATIONS : Patient with a history of right groin abscess. MEDICAL HISTORY : Hypertension. Diabetes mellitus type 1. Hyperlipidemia SURGICAL HISTORY : RLE stent ENCOUNTER: Initial ACUITY: 1 day PAIN SCORE: 7/10 LOCATION: Right foot FLUID: Total volume of 10 cc of cloudy, yellow fluid was removed. Fluid was sent to lab for ordered studies. Post procedure scanning reveals no hematoma or other complication. TECHNIQUE: 1. Ultrasound guidance for needle aspiration. 2. Aspiration. The risks, benefits, and alternatives to ultrasound guided aspiration were explained to the patient i n detail including the risk of bleeding and infection. Written and verbal informed consent was obtai angel. With the patient on the ultrasound table, ultrasound imaging was used to select the most appropriate approach for aspiration. Overlying skin was prepped and draped in the usual sterile fashion and with local anesthetic a dermatotomy was made with an 11 blade scalpel. A catheter was introduced into th e cavity. Initially, could not aspirate any material. A small amount of sterile water was injected an d 10 cc of pertinent material was aspirated. CONCLUSION: Uncomplicated ultrasound guided aspiration. Carroll Arteaga MD on February 04, 2016 at 8:22 Board Certified Radiologist. This report was verified electronically.
[2016-02-04] MEDS: CALCIUM CARBONATE 500 MG CHEWABLE TAB CHEW SCH ×2 (09:26→23:25)
[2016-02-04] MEDS: RIFAMPIN 150 MG CAP PO SCH ×2 (09:26→23:25)
[2016-02-04] MEDS: FLUCONAZOLE 100 MG TAB PO SCH (09:26)
[2016-02-04] MEDS: POTASSIUM CHLORIDE 10 MEQ CONTROLLED RELEASE TAB PO SCH ×2 (09:26→23:25)
[2016-02-04] MEDS: SODIUM CHLORIDE 0.9% FLUSH 5 ML FLUSH FLUSH SCH ×2 (09:33→23:25)
--- NOTE | 2016-02-04 10:25 | HHI.PR ---
Subjective Remarks The pt was lethargic. He had no acute complaints. He said he was sleepy. Discussed with nursing. Objective Vitals Vital Signs Date Time Temp Pulse Resp B/P Pulse Ox O2 Delivery O2 Flow Rate FiO2 02/04/16 08:00 98.3 119 18 119/80 98 02/04/16 04:00 99.1 112 18 146/89 97 02/04/16 00:00 98.1 102 18 141/99 97 02/03/16 20:00 98.8 109 18 169/87 97 02/03/16 12:00 97.4 102 16 140/63 97 I/O 02/03/16 02/03/16 02/03/16 02/04/16 02/04/16 02/04/16 07:00 15:00 23:00 07:00 15:00 23:00 Intake Total 565 ml 480 ml 700 ml 85 ml Output Total 1100 ml 500 ml 800 ml Balance 565 ml -620 ml 200 ml -715 ml Intake Oral 480 ml 480 ml IV Total 565 ml 220 ml 85 ml Output Urine Total 1100 ml 500 ml 800 ml # Bowel Movements 1 1 Result Diagram: 02/04/16 0451 02/03/16 0437 Imaging Last Impressions Chest X-Ray 02/01/16 0000 Signed Impressions: Service Date/Time: Monday, February 01, 2016 10:18 - CONCLUSION: 1. Interval placement of left-sided PICC line. 2. No acute cardiopulmonary disease. Jarvis Pathak MD Lower Extremity Ultrasound 01/24/16 0426 Signed Impressions: Service Date/Time: Sunday, January 24, 2016 11:48 - CONCLUSION: 1. Significant decrease in the perianastomotic fluid collection Shon Mancilla MD Abdomen/Pelvis CT 01/23/16 0600 Signed Impressions: Service Date/Time: January 09:35 - CONCLUSION: 1. 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 2. Diverticulosis without evidence of diverticulitis. 3. Small bilateral effusions Shon Mancilla MD Head CT 01/21/16 0000 Signed Impressions: Service Date/Time: Thursday, January 21, 2016 10:58 - CONCLUSION: 1. No acute intracranial abnormality is identified. 2. Chronic changes include mild cerebral atrophy and periventricular white matter low attenuation characteristic of chronic microvascular ischemia. Additionally, there is encephalomalacia in the right frontal lobe likely related to prior ischemia. 3. 9 mm extra-axial ossification in the right parietal high convexity may represent a calcified meningioma. Jayce Peck MD Upper Extremity Ultrasound 01/20/16 0000 Signed Impressions: Service Date/Time: Wednesday, January 20, 2016 12:05 - CONCLUSION: Venous mapping as detailed above. John Mills Jr., MD Lower Extremity CT 01/19/16 0000 Signed Impressions: Service Date/Time: Wednesday, January 20, 2016 08:25 - CONCLUSION: 1. Abnormal cortical thickening involving tibia and fibula. This may reflect osteomyelitis. If there is necessity for further evaluation contrast-enhanced MRI is recommended. Shon Mancilla MD Needle Aspiration Ultrasound 01/17/16 0000 Signed Impressions: Service Date/Time: Sunday, January 17, 2016 16:03 - CONCLUSION: Uncomplicated ultrasound guided aspiration. Carroll Arteaga MD Cervical Spine CT 01/15/16 0000 Signed Impressions: Service Date/Time: Friday, January 15, 2016 15:51 - CONCLUSION: No abscess observed. John Mills Jr., MD Upper Extremity CT 01/14/16 0000 Signed Impressions: Service Date/Time: Friday, January 15, 2016 16:08 - CONCLUSION: Small olecranon spur. Intact bony structures. No evidence of fluid collection or abscess formation Arian Stone MD Elbow X-Ray 01/14/16 0000 Signed Impressions: Service Date/Time: Thursday, January 14, 2016 13:05 - CONCLUSION: Possible soft tissue swelling overlying the olecranon. Otherwise negative exam Arian Stone MD Chest CT 01/14/16 0000 Signed Impressions: Service Date/Time: Thursday, January 14, 2016 15:37 - CONCLUSION: Right lower lobe interstitial change with a peripheral wedge shaped triangular area of parenchymal consolidation and associated small pleural effusion. Arian Stone MD Myocardial Perfusion Scan Nuc Med 01/13/16 0000 Signed Impressions: Service Date/Time: Wednesday, January 13, 2016 10:52 - CONCLUSION: Small size, moderate severity nonreversible apical perfusion abnormality. RISK CATEGORY: Low (<1%% Annual Mortality Rate) Jayce Ham MD Shoulder X-Ray 01/12/16 0000 Signed Impressions: Service Date/Time: Tuesday, January 12, 2016 09:24 - CONCLUSION: 1. No acute fracture or subluxation of the left shoulder. 2. Probably an old fracture of the distal clavicle, healed. 3. 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 Jayce Ng MD Knee X-Ray 01/11/16 6091 Signed Impressions: Service Date/Time: Monday, January 11, 2016 16:43 - CONCLUSION: Small joint effusion. K. Jose Blackburn MD Objective Remarks GENERAL: Cachectic. Appears comfortable. SKIN: Warm and dry. HEAD: Normocephalic. EYES: No scleral icterus. No injection or drainage. NECK: Supple, trachea midline. No JVD. CARDIOVASCULAR: Regular rate and rhythm without murmurs, gallops, or rubs. RESPIRATORY: Breath sounds equal bilaterally. No accessory muscle use. GASTROINTESTINAL: Abdomen soft, non-tender, nondistended. MUSCULOSKELETAL: No cyanosis. trace right lower extremity edema Patient has multiple non-confluent subcentimeter nonblanching purpuric macules on the plantar surface of the right foot slowly resolving. BACK: Nontender without obvious deformity. No CVA tenderness. PSYCH: Flattened affect. Medications and IVs Current Medications Medications (Trade) Dose Ordered Sig/Smith Route Start Time Stop Time Status Last Admin (NS Flush) 2 ml UNSCH PRN FLUSH 01/11/16 18:45 02/03/16 04:06 (NS Flush) 2 ml BID FLUSH 01/11/16 21:00 02/04/16 09:33 (Tylenol) 650 mg Q4H PRN PO 01/11/16 18:45 01/14/16 18:25 (Dulcolax Supp) [address] 01/11/16 18:45 (Milk Of Magnesia Liq) 30 ml Q12H PRN PO 01/11/16 18:45 (Narcan Inj) 0.4 mg UNSCH PRN IV 01/11/16 18:45 (D50w (Vial) Inj) 25 ml UNSCH PRN IV PUSH 01/11/16 19:00 (Glucagon Inj) 1 mg UNSCH PRN OTHER 01/11/16 19:00 ([place] 5-325 Mg) 1 tab Q4H PRN PO 01/11/16 19:15 02/03/16 17:41 (Morphine Inj) 2 mg Q3H PRN IV PUSH 01/11/16 19:15 01/31/16 21:43 (Heparin Inj) 5,000 units UNSCH PRN IV 01/12/16 01:15 Heparin Sodium (Porcine) 2500 units 2,500 units UNSCH PRN IV 01/12/16 01:15 01/12/16 02:48 (Heparin-D5W Inj) 250 ml @ 0 mls/hr TITRATE IV 01/11/16 19:15 02/03/16 04:08 Calcium Carbonate 500 mg 500 mg Q12HR CHEW 01/13/16 09:00 02/04/16 09:26 Ertapenem 1000 mg/ Sodium Chloride 100 ml @ 200 mls/hr Q24H IV 01/13/16 12:00 02/13/16 11:59 02/03/16 12:28 (Ancef 2 Gm Premix) 50 ml @ 100 mls/hr Q8H IV 01/14/16 14:00 02/04/16 05:00 Atorvastatin Calcium 40 mg 40 mg HS PO 01/15/16 21:00 02/03/16 21:36 (Lr 1000 ml Inj) 1,000 ml @ 30 mls/hr Q24H IV 01/15/16 11:00 (Rifampin) 150 mg Q12HR PO 01/15/16 13:00 02/04/16 09:26 (Zofran Inj) 4 mg Q6HR PRN IV PUSH 01/22/16 00:30 (Pill Splitter) 1 ea UNSCH PRN OTHER 01/22/16 08:15 (KCl) 30 meq Q12HR PO 01/23/16 09:00 02/04/16 09:26 (Vasotec Inj) 1.25 mg Q6H PRN IV PUSH 01/23/16 13:15 02/02/16 10:19 Insulin Detemir 5 units 5 units HS SQ 01/26/16 21:45 02/03/16 21:35 (Coumadin Consult Pharmacy) 0 ml @ 0 mls/hr UNSCH OTHER 01/28/16 14:15 (Diflucan) 100 mg DAILY PO 01/30/16 09:00 02/04/16 09:26 (Coumadin) 2.5 mg DAILY@16 PO 02/02/16 16:00 02/03/16 17:01 (Norvasc) 10 mg DAILY PO 02/03/16 09:00 02/04/16 09:26 (NS Flush) See Protocol DAILY IVF 02/03/16 09:00 02/04/16 09:34 (NS Flush) See Protocol UNSCH PRN IVF 02/03/16 02:15 (Heparin Central Flush) See Protocol DAILY IVF 02/03/16 09:00 02/03/16 10:41 (Heparin Central Flush) See Protocol UNSCH PRN IVF 02/03/16 02:15 02/04/16 04:53 (NS Flush) See Protocol UNSCH PRN IVF 02/03/16 02:15 02/04/16 04:53 A/P Problem List: (1) Sepsis ICD Code: A41.9 Status: Resolved (2) UTI (urinary tract infection) ICD Code: N39.0 Status: Acute (3) Neurogenic bladder ICD Code: N31.9 Status: Chronic (4) Acute on chronic renal insufficiency ICD Code: N28.9 Status: Acute (5) Rhabdomyolysis ICD Code: M62.82 Status: Acute (6) Elevated troponin ICD Code: R79.89 Status: Acute (7) DVT (deep venous thrombosis) ICD Code: I82.409 Status: Acute (8) DM (diabetes mellitus) ICD Code: E11.9 Status: Chronic Assessment and Plan Sepsis, persistent MSSA bacteremia Suspected endocarditis despite negative CHUCHO. - continue antibiotics per ID. Ertapenem stop date 02/12. The pt may not be discharged from the hospital until then per ID. - Will need weekly CBC with differential, CMP as patient is on rifampin, CRP every week. 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 Dr. Alvarenga on consult for second opinion and has offered surgery, patient now stating he would like to stay at [place] for surgery, however surgery on hold as there is now a question of patient's capacity as his mental status waxes and wanes as well as family's understanding of risks/benefits of proceeding with surgery, as patient has multiple other underlying serious infections and is clearly high risk for surgery. - Palliative care following to help facilitate goals of care and family communication. Family meeting 02/02 decided to continue with aggressive care. - Appreciate vascular surgery assistance. No surgery at this time. - Continue antibiotics as per ID. Severe emphysematous UTI (recurrent or worsening as compared to previous CT done 09/2014) - with air in the extraperitoneal pelvis suggestive of possible developing fistula or bladder perforation. Urine cx growing E. Coli ESBL and staph aureus. - Plan is to continue Payan and antibiotics for some weeks and repeat CT in 2 weeks as usually extraperitoneal bladder perforation will heal on their own. - The patient is on ertapenem start date 01/12 for this infection. - Appreciate infectious disease and urology assistance. Continue with Payan. Continue antibiotics as per infectious disease. - 01/26 repeat urinalysis with yeast. Infectious disease started on fluconazole 01/29. Acute metabolic encephalopathy/ Hospital delirium Improving at times, however patient's daughter states he is nowhere near baseline. CT head 01/20 with no acute intracranial abnormality. Altered mental status likely secondary to systemic infection. Seems stable 02/03. - improving with treatment of underlying medical illnesses. - Cont ST. Severe, persistent hypokalemia Appears improved after replacement. - continue repletion 30 meq PO BID. Additional KCl given 02/01. - follow BMP 02/04. Chronic urinary retention Possibly due to neurogenic bladder. Self catheterizes at home. - Continue Payan as per urology. Urology recommends suprapubic catheter in the future as outpatient. Acute on Chronic kidney injury: Creatinine 3.55 on admission. Improved. Stable 02/02. - Continue to monitor renal function. - 1 L 1/2 NS ordered 02/01. Elevated Trop Trop 0.07, EKG w/ no acute changes. Likely secondary to worsening renal function. ECHO which showed EF 55-60%. Stress test showed " Small size, moderate severity nonreversible apical perfusion abnormality, low risk". Appreciate cardiology input. - medical management. DM type 2 Hgb A1c 8%. Glucose well controlled 02/03. - Continue sliding scale w/ Accu-Cheks. - Continue to monitor. DVT of right upper popliteal and peroneal tributary, and of right upper extremity in the brachial vein Appreciate hematology input. - Continue heparin drip until INR therapeutic. 1.7 02/02. 02/03 INR is pending. - Will need at least 3 months AC for provoked DVT. Severe protein calorie malnutrition Appreciate dietary recommendations. - Start 2500-calorie diabetic diet. Glucerna shakes 3 times a day. - trial of Marinol. DVT prophylaxis: Patient is on therapeutic treatment for DVT. Discharge Planning Awaiting ID clearance. Problem Qualifiers (1) Sepsis: Qualified Code: A41.01 - Sepsis due to Methicillin susceptible Staphylococcus aureus (2) DVT (deep venous thrombosis): Qualified Code: I82.431 - Deep vein thrombosis (DVT) of popliteal vein of right lower extremity, unspecified chronicity (3) DM (diabetes mellitus): Jarvis Pickard DO Feb 04, 2016 10:25
[2016-02-04] MEDS: DRONABINOL 2.5 MG CAP PO SCH ×2 (11:00→16:19)
[2016-02-04] MEDS ORDERED: DRONABINOL 5 MG CAP PO SCH (11:00)
[2016-02-04 12:00] VITALS: BP 124/74; PULSE 117; RESP 20; TEMP 98.4; O2SAT 98
[2016-02-04] MEDS: ERTAPENEM INJ 1,000 MG in SODIUM CHLORIDE 0.9% INJ 100 ML IV SCH (12:07)
[2016-02-04] MEDS: ACETAMINOPHEN/HYDROcodone 325 MG/5 MG TAB PO PRN ×2 (12:08→23:38)
[2016-02-04 13:13] LABS: INTERNATIONAL NORMALIZED RATIO 1.4 RATIO; PROTHROMBIN TIME - PATIENT 15.9 SEC (9.8-11.6)
[2016-02-04 16:00] VITALS: BP 134/84; PULSE 111; RESP 18; TEMP 97.7; O2SAT 98
[2016-02-04] MEDS ORDERED: WARFARIN SOD 2.5 MG TAB PO SCH (16:00)
[2016-02-04] MEDS: WARFARIN SOD 2.5 MG TAB PO SCH (16:19)
[2016-02-04] MEDS: HEPARIN-D5W INJ 250 ML IV SCH (16:21)
[2016-02-04 21:00] VITALS: BP 142/87; PULSE 107; RESP 18; TEMP 99; O2SAT 96
[2016-02-04] MEDS: ATORVASTATIN 40 MG TAB PO SCH (23:25)
[2016-02-04] MEDS: INSULIN DETEMIR 100 UNITS/ML VIAL SQ SCH (23:38)
[2016-02-05] VITALS: BP 133/95; PULSE 110; RESP 18; TEMP 98.4; O2SAT 96
[2016-02-05 04:00] VITALS: BP 118/86; PULSE 111; RESP 18; TEMP 98; O2SAT 100
[2016-02-05] MEDS: ceFAZolin 2 GM PREMIX 50 ML IV SCH ×3 (06:00→20:21)
[2016-02-05] MEDS: INSULIN ASPART SUPPLEMENTAL SCALE SQ SCH ×4 (06:00→20:20)
[2016-02-05 06:51] LABS: BICARBONATE 28.7 MEQ/L (21.0-32.0); MAGNESIUM 1.8 MG/DL (1.5-2.5); POTASSIUM 3.8 MEQ/L (3.5-5.1)
[2016-02-05 06:59] LABS: APTT (PATIENT) 43.2 SEC (24.3-30.1); INTERNATIONAL NORMALIZED RATIO 1.8 RATIO; PROTHROMBIN TIME - PATIENT 20.7 SEC (9.8-11.6)
[2016-02-05 08:00] VITALS: BP 152/93; PULSE 113; RESP 18; TEMP 98.3; O2SAT 96
[2016-02-05] MEDS: FLUCONAZOLE 100 MG TAB PO SCH (09:11)
[2016-02-05] MEDS: CALCIUM CARBONATE 500 MG CHEWABLE TAB CHEW SCH ×2 (09:11→20:19)
[2016-02-05] MEDS: POTASSIUM CHLORIDE 10 MEQ CONTROLLED RELEASE TAB PO SCH ×2 (09:11→20:19)
[2016-02-05] MEDS: RIFAMPIN 150 MG CAP PO SCH ×2 (09:11→20:19)
[2016-02-05] MEDS: SODIUM CHLORIDE 0.9% FLUSH 5 ML FLUSH FLUSH SCH ×2 (09:12→20:36)
[2016-02-05] MEDS: LACTATED RINGER'S 1000 ML IV SCH (11:00)
[2016-02-05 12:00] VITALS: BP 128/83; PULSE 111; RESP 18; TEMP 98.2; O2SAT 95
[2016-02-05] MEDS: DRONABINOL 2.5 MG CAP PO SCH ×2 (13:35→17:27)
[2016-02-05] MEDS: ERTAPENEM INJ 1,000 MG in SODIUM CHLORIDE 0.9% INJ 100 ML IV SCH (13:43)
[2016-02-05] MEDS ORDERED: DEXT 5%-NACL 0.45% 1000 ML INJ 1,000 ML IV SCH (13:45)
[2016-02-05] MEDS: ACETAMINOPHEN/HYDROcodone 325 MG/5 MG TAB PO PRN ×2 (14:40→20:31)
--- NOTE | 2016-02-05 15:33 | HHI.HCPN ---
Reason for visit a. To assist with evaluation and management of symptoms including: Encephalopathy,weakness b. To assist medical decision maker(s) with: better understanding of current medical conditions; weighing benefits/burdens of medical treatment options; making medical treatment decisions. . Subjective/Interval History Patient was seen to follow up on comfort, goals w decision maker. He cont to be intermittently confused, though cooperative. PT notes pt very weak and requiring max assist for standing, limited mobility. Cont to have poor oral intake, was started on Marinol yesterday-- had been eating 10-20% of meals , some improvement in appetite today per nursing report. BUN/creatinine slightly /slightly trending upward 26/2.56. GFR 25. UOP adequate. CBC stable. Remains on rifampin, cefazolin, ertapenem, has also been started on fluconazole for urine positive for yeast. Case management continues to work with family on discharge planning, still pending acceptance/insurance coverage of antibiotics-- case management working with facility/concern/family to determine placement; insurance may not cover ertapenem at facility. Patient seen in room no family or visitors present. He is initially sleeping arouses some for my exam. Continues to have very quiet, mumbling type speech which is difficult to understand, this is not helped by poor fitting dentures. He is oriented to self, hospital, family. He thinks he has been in the hospital since January 08 (admitted on 01/10)--he cannot tell me what day it is today or how long he has been in the hospital but thinks it's been close to a month. He indicates his family was here on Christmases and they celebrated but they did not sing Matt torrez. Attempt to explore his medical conditions , his understanding of infection etc. when asked about his graft and possible surgery he has very poor insight and does not answer question with related answers. Asked him about his appetite, he tells me that he likes to eat but the "preparation here is very poor"he tells me that they bring the meal and don 't give him his glasses and they don't always wake him up . Ask him about pain as per review of records he has been requiring some prn Leonard; he does not directly answer this question however speaks about "when you're lying on a board for 20 days ", you can get "stiff and you just deal with it." He refers to his experience and says that he is used to is getting through stuff , so I'm presuming he means he has some amount of discomfort though he is not able to further elaborate. Asked him about how his breathing feels and if he is short of breath he tells me know but asked me how much oxygen he is on. I explained he is not on any oxygen and that I just wondered how his breathing felt. He then says he guesses it is okay. Ask him if his daughter has been in to see him he says not today. Advised that I would give her a call to update her he is in agreement with this. Following exam call to daughter Puja, spoke with her at length, for 53 minutes. Review of current conditions, current treatments in place, antibiotic treatment courses/timelines as outlined by ID, current diagnostics/labs, vital signs, PT assessments, nutritional assessments, medications in place, possible pain/pain regimen. Additionally review with her that patient remains at risk for potential complications/setbacks related to progressive weakness, bedbound status. I reviewed with her oral intake and caloric needs, and initiation of appetite stimulant; additionally reviewed that if appetite and oral intake did not improve may need to begin discussing feeding tube and if the patient would want that. Review of disposition planning as per case management notes. Review of CODE STATUS/what resuscitation entails, and what impact resuscitation would have on patient's current fragile condition. Additionally explore trajectory going forward including best case scenario and patient make some improvements versus worst-case scenario and patient continues to decline and has deterioration of multiple factors i.e. kidney, nutrition, infection etc. Review hospice role, philosophy, services provided. All questions answered. Puja is going to discuss CODE STATUS with her and other family members--for now patient should remain full code. In terms of other goals she wishes to continue to monitor each component contributing to patient's improvement or decline; monitor kidneys, nutritional status etc. over the next few days and watch for signs of improvement versus worsening. She wants to continue aggressive course if they continue to see stability or improvement --she endorses she wants to be certain that she has given him every chance to try to improve and, "does not want him to feel he has been given up on ". However she is open to revisiting goals of treatment and possibly considering comfort oriented treatment if patient has additional decline in condition. In terms of a feeding tube she does not think that she would proceed with a feeding tube though is not certain at this time this would be pending other conditions at that time. . . Advance Directives Living Will: Never completed Health Care Surrogate: Never completed Durable Power of Pavilion Cutter: Never completed Objective Vital Signs Date Time Temp Pulse Resp B/P Pulse Ox O2 Delivery O2 Flow Rate FiO2 02/05/16 12:00 98.2 111 18 128/83 95 02/05/16 08:00 98.3 113 18 152/93 96 02/05/16 04:00 98.0 111 18 118/86 100 02/05/16 00:00 98.4 110 18 133/95 96 02/04/16 21:00 99.0 107 18 142/87 96 02/04/16 16:00 97.7 111 18 134/84 98 Intake & Output 02/05/16 02/05/16 07:00 19:00 Intake Total 595 ml Output Total 825 ml Balance -230 ml Intake Oral 480 ml IV Total 115 ml Output Urine Total 825 ml Physical Exam CONSTITUTIONAL/GENERAL: Frail, elderly-appearing patient, initially sleeping, no apparent distress. TUBES/LINES/DRAINS: PIV x 2/ PICC line LUE, Payan catheter-dark yellow urine CARDIOVASCULAR: Regular rate and rhythm, + murmur. Periph pulses palpable. RESPIRATORY/CHEST: Symmetric, unlabored respirations on room air. Clear to auscultation. Breath sounds equal bilaterally, no accessory muscle use GASTROINTESTINAL: Abdomen soft, flat, non-tender, nondistended. No hepato- splenomegaly, or palpable masses. Bowel sounds present. NEUROLOGICAL: Sleeping though arouses for exam. Becomes alert oriented times 2 3. Speech is mumbling, soft and difficult to understand. Some very limited insight into hospitalization. Cooperative, follows commands, moves all 4 extremities. PSYCHIATRIC: No obvious anxiety/depression . Diagnostic Tests Laboratory Laboratory Tests Test 02/03/16 02/04/16 02/04/16 02/04/16 04:37 04:51 06:09 12:00 Prothrombin Time 19.3 SEC 15.9 SEC (9.8-11.6) (9.8-11.6) Prothromb Time International 1.7 RATIO 1.4 RATIO Ratio Activated Partial 52.9 SEC 57.2 SEC Thromboplast Time (24.3-30.1) (24.3-30.1) Sodium Level 139 MEQ/L (136-145) Potassium Level 3.5 MEQ/L (3.5-5.1) Chloride Level 101 MEQ/L (98-107) Carbon Dioxide Level 29.6 MEQ/L (21.0-32.0) Anion Gap 8 MEQ/L (5-15) Blood Urea Nitrogen 26 MG/DL (7-18) Creatinine 2.33 MG/DL (0.60-1.30) Estimat Glomerular Filtration 28 ML/MIN (>89) Rate Random Glucose 92 MG/DL (74-106) Calcium Level 8.4 MG/DL (8.5-10.1) Magnesium Level 1.7 MG/DL (1.5-2.5) White Blood Count 10.8 TH/MM3 (4.0-11.0) Red Blood Count 3.11 MIL/MM3 (4.50-5.90) Hemoglobin 9.8 GM/DL (13.0-17.0) Hematocrit 28.7 % (39.0-51.0) Mean Corpuscular Volume 92.3 FL (80.0-100.0) Mean Corpuscular Hemoglobin 31.5 PG (27.0-34.0) Mean Corpuscular Hemoglobin 34.2 % Concent (32.0-36.0) Red Cell Distribution Width 16.9 % (11.6-17.2) Platelet Count 357 TH/MM3 (150-450) Mean Platelet Volume 8.3 FL (7.0-11.0) Test 02/05/16 05:55 Prothrombin Time 20.7 SEC (9.8-11.6) Prothromb Time International 1.8 RATIO Ratio Activated Partial 43.2 SEC Thromboplast Time (24.3-30.1) Sodium Level 141 MEQ/L (136-145) Potassium Level 3.8 MEQ/L (3.5-5.1) Chloride Level 104 MEQ/L (98-107) Carbon Dioxide Level 28.7 MEQ/L (21.0-32.0) Anion Gap 8 MEQ/L (5-15) Blood Urea Nitrogen 26 MG/DL (7-18) Creatinine 2.56 MG/DL (0.60-1.30) Estimat Glomerular Filtration 25 ML/MIN (>89) Rate Random Glucose 113 MG/DL (74-106) Calcium Level 8.9 MG/DL (8.5-10.1) Magnesium Level 1.8 MG/DL (1.5-2.5) Result Diagram: 02/04/16 0451 02/05/16 0555 Microbiology 01/26urine= positive [facility] Last Impressions Chest X-Ray 02/01/16 0000 Signed Impressions: Service Date/Time: Monday, February 01, 2016 10:18 - CONCLUSION: 1. Interval placement of left-sided PICC line. 2. No acute cardiopulmonary disease. Jarvis Pathak MD Lower Extremity Ultrasound 01/24/16 0426 Signed Impressions: Service Date/Time: Sunday, January 24, 2016 11:48 - CONCLUSION: 1. Significant decrease in the perianastomotic fluid collection Shon Mancilla MD Abdomen/Pelvis CT 01/23/16 0600 Signed Impressions: Service Date/Time: January 09:35 - CONCLUSION: 1. 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 2. Diverticulosis without evidence of diverticulitis. 3. Small bilateral effusions Shon Mancilla MD Head CT 01/21/16 0000 Signed Impressions: Service Date/Time: Thursday, January 21, 2016 10:58 - CONCLUSION: 1. No acute intracranial abnormality is identified. 2. Chronic changes include mild cerebral atrophy and periventricular white matter low attenuation characteristic of chronic microvascular ischemia. Additionally, there is encephalomalacia in the right frontal lobe likely related to prior ischemia. 3. 9 mm extra-axial ossification in the right parietal high convexity may represent a calcified meningioma. Jayce Peck MD Upper Extremity Ultrasound 01/20/16 0000 Signed Impressions: Service Date/Time: Wednesday, January 20, 2016 12:05 - CONCLUSION: Venous mapping as detailed above. John Mills Jr., MD Lower Extremity CT 01/19/16 0000 Signed Impressions: Service Date/Time: Wednesday, January 20, 2016 08:25 - CONCLUSION: 1. Abnormal cortical thickening involving tibia and fibula. This may reflect osteomyelitis. If there is necessity for further evaluation contrast-enhanced MRI is recommended. Shon Mancilla MD Needle Aspiration Ultrasound 01/17/16 0000 Signed Impressions: Service Date/Time: Sunday, January 17, 2016 16:03 - CONCLUSION: Uncomplicated ultrasound guided aspiration. Carroll Arteaga MD Cervical Spine CT 01/15/16 0000 Signed Impressions: Service Date/Time: Friday, January 15, 2016 15:51 - CONCLUSION: No abscess observed. John Mills Jr., MD Upper Extremity CT 01/14/16 0000 Signed Impressions: Service Date/Time: Friday, January 15, 2016 16:08 - CONCLUSION: Small olecranon spur. Intact bony structures. No evidence of fluid collection or abscess formation Arian Stone MD Elbow X-Ray 01/14/16 0000 Signed Impressions: Service Date/Time: Thursday, January 14, 2016 13:05 - CONCLUSION: Possible soft tissue swelling overlying the olecranon. Otherwise negative exam Arian Stone MD Chest CT 01/14/16 0000 Signed Impressions: Service Date/Time: Thursday, January 14, 2016 15:37 - CONCLUSION: Right lower lobe interstitial change with a peripheral wedge shaped triangular area of parenchymal consolidation and associated small pleural effusion. Arian Stone MD Myocardial Perfusion Scan Nuc Med 01/13/16 0000 Signed Impressions: Service Date/Time: Wednesday, January 13, 2016 10:52 - CONCLUSION: Small size, moderate severity nonreversible apical perfusion abnormality. RISK CATEGORY: Low (<1%% Annual Mortality Rate) Jayce Ham MD Shoulder X-Ray 01/12/16 0000 Signed Impressions: Service Date/Time: Tuesday, January 12, 2016 09:24 - CONCLUSION: 1. No acute fracture or subluxation of the left shoulder. 2. Probably an old fracture of the distal clavicle, healed. 3. 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 Jayce Ng MD Knee X-Ray 01/11/16 5007 Signed Impressions: Service Date/Time: Monday, January 11, 2016 16:43 - CONCLUSION: Small joint effusion. Jessica Blackburn MD Procedures 01/16 ultrasound-guided drainage of complex fluid around right femoral graft. Assessment and Plan Disease Oriented Problem List: (1) Sepsis (2) Acute on chronic renal insufficiency (3) UTI (urinary tract infection) (4) DM (diabetes mellitus) (5) Leukocytosis (6) DVT (deep venous thrombosis) (7) Heart murmur (8) Perivascular/Graft abcess (9) Emphysematous cystitis (10) Endocarditis Comment: Suspected endocarditis despite negative CHUCHO, concern for septic emboli (11) Neurogenic bladder (12) Hypokalemia Symptom Scale: (1) Encephalopathy (2) Pain Comment: Endorsed some pain on admission to lower extremities Pertinent Non-Medical Issues Psychosocial:[place]iginally from [place] has lived in [place] for many years. . Retired. Has one adult daughter whom he lives with. Has 3 grandchildren who also live with him and the daughter, school-aged. He participates in their care. Active prior to this hospitalization, enjoys golf. 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 His neurological status appears to wax and wane based on reports.Recommend Shared decision making involving the patient and his daughter . His daughter Puja is his only child and would be appropriate proxy per [place] statutes. Ethical issues impacting care: Important Contacts Puja Bose daughter [phone] Prognosis This patient was admitted for UTI, sepsis. Subsequently has had findings of fluid accumulation, questionable abscess around old bypass graft. Recommended for urgent surgery for removal of graft. Neurological status has waxed and waned, seems to have had an underlying old stroke. Given advanced age and recent recurrent illnesses does remain high risk for further complications and setbacks. If the patient elected not to undergo aggressive interventions such as surgeries to remove graft, etc. may be appropriate for hospice and comfort measures only if goals compatible. Code Status: Full Code Plan * Legal decision makerPatient appears to have some limited insight into conditions and options though at times seems to have fairly limited ability to weigh benefits/burdens for decision-making. His neurological status appears to wax and wane based on reports. Would recommend Shared decision making involving the patient and his daughter in any decision-making to ensure full understanding of associated benefits/burdens. His daughter Puja is his only child and would be appropriate proxy per [place] statutes. * Goals02/05/16: Spoke with kev Luo at length via phone. See subjective component for additional detail. In summary: She wants to continue aggressive course if they continue to see stability or improvement --she endorses she wants to be certain that she has given him every chance to try to improve and, "does not want him to feel he has been given up on". However she is open to revisiting goals of treatment and possibly considering comfort oriented treatment if patient has additional decline in condition. In terms of a feeding tube she does not think that she would proceed with a feeding tube though is not certain at this time this would be pending other conditions at that time. * SYMPTOMS --Encephalopathy: Neuro status cont to wax and wane, history of old CVA based on imaging in prior records. Etio likely multifactorial --Pain- Upon admission the patient endorsed some pain to lower extremities. 02/05/16 this did not endorse any specific pain though his daughter Puja mentions he was complaining of pain to her, he does tell me about one becoming "stiff" from laying on a board. Would presume he has been having some pain. PRN morphine, Leonard available. Has been using several doses of Leonard a day, has required 1 dose thus far today. (Nursing reports pain of 458 to shoulder. ) We'll continue to evaluate requirements/effectiveness of PRNS. I did discuss with daughter Puja use of analgesics, and weighing pain relief with sedation risks, and concern about patient's fluctuating mental status. -- malnutrition- poor appetite for weeks. est. caloric requirements per R.D. = 2700 low end. Based on recorded intake pt appears to be consuming 200-300 calories a day- was started on marinol yesterday, slight improvement in appetite today per nursing. will cont to evaluate. Will require feeding tube for artificial nutrition to meet caloric needs if goals are aggressive. d/w dtr , she is not certain that pt would want. [albumin 1.3] * Palliative care will continue to follow during hospital course as condition evolves, to assist patient/decision-maker with understanding of medical conditions, weighing benefits/burdens of treatment options, for clarification of goals of treatment. Additionally will assist with any symptoms of palliative concern . Time Spent Total Floor Time (mins): 60 >50% Counseling/Coord of Care: Yes (d/w nurse) Attestation To help prompt me to consider important information that might be impacting today's encounter and assessment, information from prior notes written by myself or my colleagues may have been "brought forward" into today's note. My signature on this note, however, is an attestation that I personally performed the exam, history, and/or decision-making noted today, and, unless otherwise indicated, the interactions with patient, family, and staff as well as the review of records all occurred today. I also attest that the listed assessment and stated plan reflect my best clinical judgment today based on the combination of historical information, prior notes, and today's exam/ interactions. When time spent is documented, it refers only to time spent today by the signer, or if indicated, combined time spent today by collaborating physician/nurse practitioner. Piper Steve Feb 05, 2016 15:33
[2016-02-05 16:00] VITALS: BP 118/58; PULSE 110; RESP 18; TEMP 96; O2SAT 98
--- NOTE | 2016-02-05 16:18 | PD.ONC.PN ---
Subjective Subjective Remarks No new c/o. No report of bleeding. Objective Data Date Time Temp Pulse Resp B/P Pulse Ox O2 Delivery O2 Flow Rate FiO2 02/05/16 12:00 98.2 111 18 128/83 95 02/05/16 08:00 98.3 113 18 152/93 96 02/05/16 04:00 98.0 111 18 118/86 100 02/05/16 00:00 98.4 110 18 133/95 96 02/04/16 21:00 99.0 107 18 142/87 96 02/05/16 02/05/16 02/05/16 07:00 15:00 23:00 Intake Total 240 ml 480 ml Output Total 400 ml 400 ml Balance -160 ml 80 ml Result Diagram: 02/04/16 0451 02/05/16 0555 Laboratory Results Laboratory Tests Test 02/05/16 05:55 Prothrombin Time 20.7 SEC Prothromb Time International 1.8 RATIO Ratio Activated Partial 43.2 SEC Thromboplast Time Sodium Level 141 MEQ/L Potassium Level 3.8 MEQ/L Chloride Level 104 MEQ/L Carbon Dioxide Level 28.7 MEQ/L Anion Gap 8 MEQ/L Blood Urea Nitrogen 26 MG/DL Creatinine 2.56 MG/DL Estimat Glomerular Filtration 25 ML/MIN Rate Random Glucose 113 MG/DL Calcium Level 8.9 MG/DL Magnesium Level 1.8 MG/DL Administered Medications Medications (Trade) Dose Ordered Sig/Smith Route PRN Reason Start Time Stop Time Status Last Admin Dose Admin IV Flush (NS Flush) 2 ml UNSCH PRN FLUSH FLUSH AFTER USING IV ACCESS 01/11/16 18:45 02/03/16 04:06 IV Flush (NS Flush) 2 ml BID FLUSH 01/11/16 21:00 02/05/16 09:12 Acetaminophen (Tylenol) 650 mg Q4H PRN PO FEVER/PAIN 1-2 01/11/16 18:45 01/14/16 18:25 Acetaminophen/ Hydrocodone Bitart ([place] 5-325 Mg) 1 tab Q4H PRN PO PAIN 3-5 01/11/16 19:15 02/05/16 14:40 Morphine Sulfate (Morphine Inj) 2 mg Q3H PRN IV PUSH PAIN 6-10 01/11/16 19:15 01/31/16 21:43 Heparin Sodium (Porcine) 2500 units 2,500 units UNSCH PRN IV APTT 25 TO 39 01/12/16 01:15 01/12/16 02:48 Heparin Sodium/ Dextrose (Heparin-D5W Inj) 250 ml @ 0 mls/hr TITRATE IV 01/11/16 19:15 02/04/16 16:21 Calcium Carbonate 500 mg 500 mg Q12HR CHEW 01/13/16 09:00 02/05/16 09:11 Ertapenem 1000 mg/ Sodium Chloride 100 ml @ 200 mls/hr Q24H IV 01/13/16 12:00 02/13/16 11:59 02/05/16 13:43 Cefazolin Sodium/ Dextrose (Ancef 2 Gm Premix) 50 ml @ 100 mls/hr Q8H IV 01/14/16 14:00 02/05/16 13:41 Atorvastatin Calcium (Lipitor) 40 mg HS PO 01/15/16 21:00 02/04/16 23:25 Rifampin (Rifampin) 150 mg Q12HR PO 01/15/16 13:00 02/05/16 09:11 Potassium Chloride (KCl) 30 meq Q12HR PO 01/23/16 09:00 02/05/16 09:11 Enalaprilat (Vasotec Inj) 1.25 mg Q6H PRN IV PUSH SBP> OR = 180, DBP> OR = 100 01/23/16 13:15 02/02/16 10:19 Insulin Detemir (Levemir Inj) 5 units HS SQ 01/26/16 21:45 02/04/16 23:38 Fluconazole (Diflucan) 100 mg DAILY PO 01/30/16 09:00 02/05/16 09:11 Warfarin Sodium (Coumadin) 2.5 mg DAILY@16 PO 02/02/16 16:00 02/04/16 16:19 Amlodipine Besylate (Norvasc) 10 mg DAILY PO 02/03/16 09:00 02/05/16 09:11 IV Flush (NS Flush) See Protocol DAILY IVF 02/03/16 09:00 02/04/16 09:34 Heparin Sodium (Porcine) (Heparin Central Flush) See Protocol DAILY IVF 02/03/16 09:00 02/05/16 09:12 Heparin Sodium (Porcine) (Heparin Central Flush) See Protocol UNSCH PRN IVF SEE PROTOCOL TABLE 02/03/16 02:15 02/05/16 07:45 IV Flush (NS Flush) See Protocol UNSCH PRN IVF SEE PROTOCOL TABLE 02/03/16 02:15 02/05/16 07:45 Dronabinol (Marinol) 2.5 mg BID@11,16 PO 02/04/16 11:00 02/05/16 13:35 Objective Remarks GENERAL: Cachectic, weak. SKIN: Warm and dry. HEAD: Normocephalic. EYES: No scleral icterus. No injection or drainage. NECK: Supple, trachea midline. No JVD or lymphadenopathy. LYMPHATIC: No adenopathy. CARDIOVASCULAR: Regular rate and rhythm without murmurs. RESPIRATORY: Breath sounds equal bilaterally. No accessory muscle use. GASTROINTESTINAL: Abdomen soft, non-tender, nondistended. EXTREMITIES: No cyanosis, or edema. RLE stil slightly tender. MUSCULOSKELETAL: Adequate muscle tone. NEUROLOGICAL: No obvious focal deficit. Awake, alert, and oriented x3. Assessment/Plan Problem List: (1) DVT (deep venous thrombosis) Status: Acute Plan: 02/05/16: On heparin and coumadin. No bleeding. INR up to 1.8. No LE edema. Will increase coumadin tomorrow if INR still subtherapeutic. 01/28/16: continue heparin bridge to coumadin. d/w Dr. Bustillo, [facility], they will continue to monitor bridge (will consult pharmacy for assistance) 01/27/16: Spoke with Dr. Stubbs's PROGRAM OR PROJECT ADMINISTRATOR. No procedures are planned. We will start Coumadin at a low dose for DVT prevention (1mg po daily). Daily PT/INR. 01/24/16: INR improved to 1.2 today. continue heparin drip. await completion of all procedures before transitioning to oral therapy History --Right lower extremity deep venous thrombosis and right upper extremity deep venous thrombosis. --likely triggered by sepsis and immobility. --was laying on the floor for several hours the day prior to presentation. --also a possibility that he had a PICC line placed on the right upper extremity during his hospital stay at [facility] a week prior to presentation. --the thrombosis appeared to be provoked. (2) Sepsis Status: Resolved Plan: --d/t UTI and vascular graft --on multiple antibiotics. (3) Neurogenic bladder Status: Chronic Plan: --urology following. --Neurogenic bladder with recurrent urinary tract infection. --has been self-catheterizing. (4) Vascular graft infection Status: Acute Plan: --CTS following, no surgery recommended. Assessment 70y/o male with newly diagnosed DVT's, admitted with urosepsis. h/o Diabetes mellitus. Hepatitis C. He was receiving treatment at [facility]. Plan 1. continue heparin bridge to coumadin, will increase coumadin to 3mg tomorrow if INR still not therapeutic. 2. monitor INR and CBC Problem Qualifiers (1) DVT (deep venous thrombosis): Qualified Code: I82.431 - Deep vein thrombosis (DVT) of popliteal vein of right lower extremity, unspecified chronicity (2) Sepsis: Qualified Code: A41.01 - Sepsis due to Methicillin susceptible Staphylococcus aureus Osbaldo Flowers MD Feb 05, 2016 16:18
--- NOTE | 2016-02-05 16:51 | HHI.PR ---
Subjective Remarks The patient was watching a show about football on TV. He had no acute complaints. Objective Vitals Vital Signs Date Time Temp Pulse Resp B/P Pulse Ox O2 Delivery O2 Flow Rate FiO2 02/05/16 12:00 98.2 111 18 128/83 95 02/05/16 08:00 98.3 113 18 152/93 96 02/05/16 04:00 98.0 111 18 118/86 100 02/05/16 00:00 98.4 110 18 133/95 96 02/04/16 21:00 99.0 107 18 142/87 96 I/O 02/04/16 02/04/16 02/04/16 02/05/16 02/05/16 02/05/16 07:00 15:00 23:00 07:00 15:00 23:00 Intake Total 85 ml 650 ml 355 ml 240 ml 480 ml Output Total 800 ml 400 ml 425 ml 400 ml 400 ml Balance -715 ml 250 ml -70 ml -160 ml 80 ml Intake Oral 480 ml 240 ml 240 ml 480 ml IV Total 85 ml 170 ml 115 ml Output Urine Total 800 ml 400 ml 425 ml 400 ml 400 ml # Bowel Movements 1 1 3 Result Diagram: 02/04/16 0451 02/05/16 0555 Imaging Last Impressions Chest X-Ray 02/01/16 0000 Signed Impressions: Service Date/Time: Monday, February 01, 2016 10:18 - CONCLUSION: 1. Interval placement of left-sided PICC line. 2. No acute cardiopulmonary disease. Jarvis Pathak MD Lower Extremity Ultrasound 01/24/16 0426 Signed Impressions: Service Date/Time: Sunday, January 24, 2016 11:48 - CONCLUSION: 1. Significant decrease in the perianastomotic fluid collection Shon Mancilla MD Abdomen/Pelvis CT 01/23/16 0600 Signed Impressions: Service Date/Time: January 09:35 - CONCLUSION: 1. 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 2. Diverticulosis without evidence of diverticulitis. 3. Small bilateral effusions Shon Mancilla MD Head CT 01/21/16 0000 Signed Impressions: Service Date/Time: Thursday, January 21, 2016 10:58 - CONCLUSION: 1. No acute intracranial abnormality is identified. 2. Chronic changes include mild cerebral atrophy and periventricular white matter low attenuation characteristic of chronic microvascular ischemia. Additionally, there is encephalomalacia in the right frontal lobe likely related to prior ischemia. 3. 9 mm extra-axial ossification in the right parietal high convexity may represent a calcified meningioma. Jayce Peck MD Upper Extremity Ultrasound 01/20/16 0000 Signed Impressions: Service Date/Time: Wednesday, January 20, 2016 12:05 - CONCLUSION: Venous mapping as detailed above. John Mills Jr., MD Lower Extremity CT 01/19/16 0000 Signed Impressions: Service Date/Time: Wednesday, January 20, 2016 08:25 - CONCLUSION: 1. Abnormal cortical thickening involving tibia and fibula. This may reflect osteomyelitis. If there is necessity for further evaluation contrast-enhanced MRI is recommended. Shon Mancilla MD Needle Aspiration Ultrasound 01/17/16 0000 Signed Impressions: Service Date/Time: Sunday, January 17, 2016 16:03 - CONCLUSION: Uncomplicated ultrasound guided aspiration. Carroll Arteaga MD Cervical Spine CT 01/15/16 0000 Signed Impressions: Service Date/Time: Friday, January 15, 2016 15:51 - CONCLUSION: No abscess observed. John Mills Jr., MD Upper Extremity CT 01/14/16 0000 Signed Impressions: Service Date/Time: Friday, January 15, 2016 16:08 - CONCLUSION: Small olecranon spur. Intact bony structures. No evidence of fluid collection or abscess formation Arian Stone MD Elbow X-Ray 01/14/16 0000 Signed Impressions: Service Date/Time: Thursday, January 14, 2016 13:05 - CONCLUSION: Possible soft tissue swelling overlying the olecranon. Otherwise negative exam Arian Stone MD Chest CT 01/14/16 0000 Signed Impressions: Service Date/Time: Thursday, January 14, 2016 15:37 - CONCLUSION: Right lower lobe interstitial change with a peripheral wedge shaped triangular area of parenchymal consolidation and associated small pleural effusion. Arian Stone MD Myocardial Perfusion Scan Nuc Med 01/13/16 0000 Signed Impressions: Service Date/Time: Wednesday, January 13, 2016 10:52 - CONCLUSION: Small size, moderate severity nonreversible apical perfusion abnormality. RISK CATEGORY: Low (<1%% Annual Mortality Rate) Jayce Ham MD Shoulder X-Ray 12/4/16 0000 Signed Impressions: Service Date/Time: Tuesday, January 12, 2016 09:24 - CONCLUSION: 1. No acute fracture or subluxation of the left shoulder. 2. Probably an old fracture of the distal clavicle, healed. 3. 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 Jayce Ng MD Knee X-Ray 01/11/16 1555 Signed Impressions: Service Date/Time: Monday, January 11, 2016 16:43 - CONCLUSION: Small joint effusion. Jessica Blackburn MD Objective Remarks GENERAL: Cachectic. Appears comfortable. SKIN: Warm and dry. HEAD: Normocephalic. EYES: No scleral icterus. No injection or drainage. NECK: Supple, trachea midline. No JVD. CARDIOVASCULAR: Regular rate and rhythm without murmurs, gallops, or rubs. RESPIRATORY: Breath sounds equal bilaterally. No accessory muscle use. GASTROINTESTINAL: Abdomen soft, non-tender, nondistended. MUSCULOSKELETAL: No cyanosis. trace right lower extremity edema Patient has multiple non-confluent subcentimeter nonblanching purpuric macules on the plantar surface of the right foot slowly resolving. BACK: Nontender without obvious deformity. No CVA tenderness. PSYCH: Flattened affect. Medications and IVs Current Medications Medications (Trade) Dose Ordered Sig/Smith Route Start Time Stop Time Status Last Admin (NS Flush) 2 ml UNSCH PRN FLUSH 01/11/16 18:45 02/03/16 04:06 (NS Flush) 2 ml BID FLUSH 01/11/16 21:00 02/05/16 09:12 (Tylenol) 650 mg Q4H PRN PO 01/11/16 18:45 01/14/16 18:25 (Dulcolax Supp) 10 mg DAILY PRN UT 01/11/16 18:45 (Milk Of Magnesia Liq) 30 ml Q12H PRN PO 01/11/16 18:45 (Narcan Inj) 0.4 mg UNSCH PRN IV 01/11/16 18:45 (D50w (Vial) Inj) 25 ml UNSCH PRN IV PUSH 01/11/16 19:00 (Glucagon Inj) 1 mg UNSCH PRN OTHER 01/11/16 19:00 (Palmer 5-325 Mg) 1 tab Q4H PRN PO 01/11/16 19:15 02/05/16 14:40 (Morphine Inj) 2 mg Q3H PRN IV PUSH 01/11/16 19:15 01/31/16 21:43 (Heparin Inj) 5,000 units UNSCH PRN IV 01/12/16 01:15 Heparin Sodium (Porcine) 2500 units 2,500 units UNSCH PRN IV 01/12/16 01:15 01/12/16 02:48 (Heparin-D5W Inj) 250 ml @ 0 mls/hr TITRATE IV 01/11/16 19:15 02/04/16 16:21 Calcium Carbonate 500 mg 500 mg Q12HR CHEW 01/13/16 09:00 02/05/16 09:11 Ertapenem 1000 mg/ Sodium Chloride 100 ml @ 200 mls/hr Q24H IV 01/13/16 12:00 02/13/16 11:59 02/05/16 13:43 (Ancef 2 Gm Premix) 50 ml @ 100 mls/hr Q8H IV 01/14/16 14:00 02/05/16 13:41 Atorvastatin Calcium 40 mg 40 mg HS PO 01/15/16 21:00 02/04/16 23:25 (Lr 1000 ml Inj) 1,000 ml @ 30 mls/hr Q24H IV 01/15/16 11:00 (Rifampin) 150 mg Q12HR PO 01/15/16 13:00 02/05/16 09:11 (Zofran Inj) 4 mg Q6HR PRN IV PUSH 01/22/16 00:30 (Pill Splitter) 1 ea UNSCH PRN OTHER 01/22/16 08:15 (KCl) 30 meq Q12HR PO 01/23/16 09:00 02/05/16 09:11 (Vasotec Inj) 1.25 mg Q6H PRN IV PUSH 01/23/16 13:15 02/02/16 10:19 Insulin Detemir 5 units 5 units HS SQ 01/26/16 21:45 02/04/16 23:38 (Coumadin Consult Pharmacy) 0 ml @ 0 mls/hr UNSCH OTHER 01/28/16 14:15 (Diflucan) 100 mg DAILY PO 01/30/16 09:00 02/05/16 09:11 (Coumadin) 2.5 mg DAILY@16 PO 02/02/16 16:00 02/04/16 16:19 (Norvasc) 10 mg DAILY PO 02/03/16 09:00 02/05/16 09:11 (NS Flush) See Protocol DAILY IVF 02/03/16 09:00 02/04/16 09:34 (NS Flush) See Protocol UNSCH PRN IVF 02/03/16 02:15 (Heparin Central Flush) See Protocol DAILY IVF 02/03/16 09:00 02/05/16 09:12 (Heparin Central Flush) See Protocol UNSCH PRN IVF 02/03/16 02:15 02/05/16 07:45 (NS Flush) See Protocol UNSCH PRN IVF 02/03/16 02:15 02/05/16 07:45 Dronabinol 2.5 mg 2.5 mg BID@11,16 PO 02/04/16 11:00 02/05/16 13:35 (D5W-1/2 NS 1000 ml Inj) 1,000 ml @ 75 mls/hr [id number] IV 02/05/16 13:45 02/06/16 16:24 A/P Problem List: (1) Sepsis ICD Code: A41.9 Status: Resolved (2) UTI (urinary tract infection) ICD Code: N39.0 Status: Acute (3) Neurogenic bladder ICD Code: N31.9 Status: Chronic (4) Acute on chronic renal insufficiency ICD Code: N28.9 Status: Acute (5) Rhabdomyolysis ICD Code: M62.82 Status: Acute (6) Elevated troponin ICD Code: R79.89 Status: Acute (7) DVT (deep venous thrombosis) ICD Code: I82.409 Status: Acute (8) DM (diabetes mellitus) ICD Code: E11.9 Status: Chronic Assessment and Plan Sepsis, persistent MSSA bacteremia Suspected endocarditis despite negative CHUCHO. - continue antibiotics per ID. Ertapenem stop date 02/12. The pt may not be discharged from the hospital until then per ID. - Will need weekly CBC with differential, CMP as patient is on rifampin, CRP every week. 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 Dr. Alvarenga on consult for second opinion and has offered surgery, patient now stating he would like to stay at [facility] for surgery, however surgery on hold as there is now a question of patient's capacity as his mental status waxes and wanes as well as family's understanding of risks/benefits of proceeding with surgery, as patient has multiple other underlying serious infections and is clearly high risk for surgery. - Palliative care following to help facilitate goals of care and family communication. Family meeting 02/02 decided to continue with aggressive care. - Appreciate vascular surgery assistance. No surgery at this time. - Continue antibiotics as per ID. Severe emphysematous UTI (recurrent or worsening as compared to previous CT done 09/2014) - with air in the extraperitoneal pelvis suggestive of possible developing fistula or bladder perforation. Urine cx growing E. Coli ESBL and staph aureus. - Plan is to continue Payan and antibiotics for some weeks and repeat CT in 2 weeks as usually extraperitoneal bladder perforation will heal on their own. - The patient is on ertapenem start date 01/12 for this infection. - Appreciate infectious disease and urology assistance. Continue with Payan. Continue antibiotics as per infectious disease. - 01/26 repeat urinalysis with yeast. Infectious disease started on fluconazole 01/29. Acute metabolic encephalopathy/ Hospital delirium Improving at times, however patient's daughter states he is nowhere near baseline. CT head 01/20 with no acute intracranial abnormality. Altered mental status likely secondary to systemic infection. Seems stable 02/03. - improving with treatment of underlying medical illnesses. - Cont ST. Severe, persistent hypokalemia Appears improved after replacement. - continue repletion 30 meq PO BID. Additional KCl given 02/01. - follow BMP 02/04. Improved. Chronic urinary retention Possibly due to neurogenic bladder. Self catheterizes at home. - Continue Payan as per urology. Urology recommends suprapubic catheter in the future as outpatient. Acute on Chronic kidney injury: Creatinine 3.55 on admission. Improved. Stable 02/04. - Continue to monitor renal function. Elevated Trop Trop 0.07, EKG w/ no acute changes. Likely secondary to worsening renal function. ECHO which showed EF 55-60%. Stress test showed " Small size, moderate severity nonreversible apical perfusion abnormality, low risk". Appreciate cardiology input. - medical management. DM type 2 Hgb A1c 8%. Glucose well controlled 02/04. - Continue sliding scale w/ Accu-Cheks. - Continue to monitor. DVT of right upper popliteal and peroneal tributary, and of right upper extremity in the brachial vein Appreciate hematology input. - Continue heparin drip until INR therapeutic. 1.8 02/04. - Will need at least 3 months AC for provoked DVT. Severe protein calorie malnutrition Appreciate dietary recommendations. - Start 2500-calorie diabetic diet. Glucerna shakes 3 times a day. - trial of Marinol. DVT prophylaxis: Patient is on therapeutic treatment for DVT. Discharge Planning Awaiting ID clearance. Problem Qualifiers (1) Sepsis: Qualified Code: A41.01 - Sepsis due to Methicillin susceptible Staphylococcus aureus (2) DVT (deep venous thrombosis): Qualified Code: I82.431 - Deep vein thrombosis (DVT) of popliteal vein of right lower extremity, unspecified chronicity (3) DM (diabetes mellitus): Jarvis Pickard DO Feb 05, 2016 16:51
[2016-02-05] MEDS: WARFARIN SOD 2.5 MG TAB PO SCH (17:27)
[2016-02-05 20:00] VITALS: BP 161/94; PULSE 106; RESP 16; TEMP 97.6; O2SAT 98
[2016-02-05] MEDS: ATORVASTATIN 40 MG TAB PO SCH (20:19)
[2016-02-05] MEDS: INSULIN DETEMIR 100 UNITS/ML VIAL SQ SCH (20:20)
[2016-02-06] VITALS: BP 132/88; PULSE 108; RESP 16; TEMP 98.5; O2SAT 97
[2016-02-06 04:00] VITALS: BP 133/81; PULSE 104; RESP 18; TEMP 98.4; O2SAT 96
[2016-02-06] MEDS: ACETAMINOPHEN/HYDROcodone 325 MG/5 MG TAB PO PRN ×2 (04:21→09:54)
[2016-02-06] MEDS: ceFAZolin 2 GM PREMIX 50 ML IV SCH (04:21)
[2016-02-06] MEDS: HEPARIN-D5W INJ 250 ML IV SCH (04:27)
[2016-02-06 05:43] LABS: APTT (PATIENT) 59.4 SEC (24.3-30.1); INTERNATIONAL NORMALIZED RATIO 2.3 RATIO
[2016-02-06 06:02] LABS: BICARBONATE 27.4 MEQ/L (21.0-32.0); POTASSIUM 3.9 MEQ/L (3.5-5.1)
[2016-02-06] MEDS: INSULIN ASPART SUPPLEMENTAL SCALE SQ SCH ×6 (06:17→22:23)
[2016-02-06 08:00] VITALS: BP 141/82; PULSE 117; RESP 18; TEMP 98.3; O2SAT 96
[2016-02-06] MEDS: POTASSIUM CHLORIDE 10 MEQ CONTROLLED RELEASE TAB PO SCH ×2 (09:46→22:21)
[2016-02-06] MEDS: CALCIUM CARBONATE 500 MG CHEWABLE TAB CHEW SCH ×2 (09:47→22:20)
[2016-02-06] MEDS: RIFAMPIN 150 MG CAP PO SCH ×2 (09:47→22:20)
[2016-02-06] MEDS: FLUCONAZOLE 100 MG TAB PO SCH (09:48)
[2016-02-06] MEDS: SODIUM CHLORIDE 0.9% FLUSH 5 ML FLUSH FLUSH SCH ×2 (09:49→22:22)
[2016-02-06] MEDS: DRONABINOL 2.5 MG CAP PO SCH ×2 (11:00→16:00)
--- NOTE | 2016-02-06 11:07 | HHI.IDPN ---
Note Infectious Disease Note No fevers BP ok. Orders for DC in chart. D/w Case Management patient will remain in hospital till Ertapenem IV completed on 02/13/2016. He still needs Ancef and Rifampin as in the post hospital infusion orders. Hospitalist to order and follow: CBC with diff, CMP, CRP once a week while in hospital. Monitoring LFTs is important while on Rifampin as it can cause fulminant liver failure. Should any problems arise in the interim please call ID agronomy teacher. I will sign off. I will be OOT from 02/07/2016 to 02/26/2016. Vital Signs Date Time Temp Pulse Resp B/P Pulse Ox O2 Delivery O2 Flow Rate FiO2 02/06/16 08:00 98.3 117 18 141/82 96 02/06/16 04:00 98.4 104 18 133/81 96 02/06/16 00:00 98.5 108 16 132/88 97 02/05/16 20:00 97.6 106 16 161/94 98 02/05/16 16:00 96.0 110 18 118/58 98 02/05/16 12:00 98.2 111 18 128/83 95 Laboratory Tests Test 02/06/16 04:20 Prothrombin Time 26.0 SEC Prothromb Time International 2.3 RATIO Ratio Activated Partial 59.4 SEC Thromboplast Time Sodium Level 139 MEQ/L Potassium Level 3.9 MEQ/L Chloride Level 103 MEQ/L Carbon Dioxide Level 27.4 MEQ/L Anion Gap 9 MEQ/L Blood Urea Nitrogen 29 MG/DL Creatinine 2.58 MG/DL Estimat Glomerular Filtration 25 ML/MIN Rate Random Glucose 98 MG/DL Calcium Level 9.0 MG/DL Anali Beaver MD Feb 06, 2016 11:07
[2016-02-06 12:47] VITALS: BP 138/79; PULSE 109; RESP 18; TEMP 98.2; O2SAT 96
[2016-02-06] MEDS: ERTAPENEM INJ 500 MG in SODIUM CHLORIDE 0.9% INJ 100 ML IV SCH (13:46)
[2016-02-06 16:47] VITALS: BP 132/88; PULSE 118; RESP 18; TEMP 97.5; O2SAT 97
--- NOTE | 2016-02-06 17:10 | HHI.PR ---
Subjective Remarks The patient was resting comfortably in bed. He had no acute complaints. He had questions about his Payan catheter once he is discharged. Objective Vitals Vital Signs Date Time Temp Pulse Resp B/P Pulse Ox O2 Delivery O2 Flow Rate FiO2 02/06/16 16:47 97.5 118 18 132/88 97 02/06/16 12:47 98.2 109 18 138/79 96 02/06/16 08:00 98.3 117 18 141/82 96 02/06/16 04:00 98.4 104 18 133/81 96 02/06/16 00:00 98.5 108 16 132/88 97 02/05/16 20:00 97.6 106 16 161/94 98 I/O 02/05/16 02/05/16 02/05/16 02/06/16 02/06/16 02/06/16 07:00 15:00 23:00 07:00 15:00 23:00 Intake Total 240 ml 480 ml 480 ml 292 ml 200 ml Output Total 400 ml 400 ml 350 ml 250 ml Balance -160 ml 80 ml 130 ml 42 ml 200 ml Intake Oral 240 ml 480 ml 480 ml 150 ml IV Total 142 ml 200 ml Output Urine Total 400 ml 400 ml 350 ml 250 ml # Bowel Movements 3 1 Result Diagram: 02/04/16 0451 02/06/16 0420 Imaging Last Impressions Chest X-Ray 02/01/16 0000 Signed Impressions: Service Date/Time: Monday, February 01, 2016 10:18 - CONCLUSION: 1. Interval placement of left-sided PICC line. 2. No acute cardiopulmonary disease. Jarvis Pathak MD Lower Extremity Ultrasound 01/24/16 0426 Signed Impressions: Service Date/Time: Sunday, January 24, 2016 11:48 - CONCLUSION: 1. Significant decrease in the perianastomotic fluid collection Shon Mancilla MD Abdomen/Pelvis CT 01/23/16 0600 Signed Impressions: Service Date/Time: January 09:35 - CONCLUSION: 1. 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 2. Diverticulosis without evidence of diverticulitis. 3. Small bilateral effusions Shon Maniclla MD Head CT 01/21/16 0000 Signed Impressions: Service Date/Time: Thursday, January 21, 2016 10:58 - CONCLUSION: 1. No acute intracranial abnormality is identified. 2. Chronic changes include mild cerebral atrophy and periventricular white matter low attenuation characteristic of chronic microvascular ischemia. Additionally, there is encephalomalacia in the right frontal lobe likely related to prior ischemia. 3. 9 mm extra-axial ossification in the right parietal high convexity may represent a calcified meningioma. Jayce Peck MD Upper Extremity Ultrasound 01/20/16 0000 Signed Impressions: Service Date/Time: Wednesday, January 20, 2016 12:05 - CONCLUSION: Venous mapping as detailed above. John Mills Jr., MD Lower Extremity CT 01/19/16 0000 Signed Impressions: Service Date/Time: Wednesday, January 20, 2016 08:25 - CONCLUSION: 1. Abnormal cortical thickening involving tibia and fibula. This may reflect osteomyelitis. If there is necessity for further evaluation contrast-enhanced MRI is recommended. Shon Mancilla MD Needle Aspiration Ultrasound 01/17/16 0000 Signed Impressions: Service Date/Time: Sunday, January 17, 2016 16:03 - CONCLUSION: Uncomplicated ultrasound guided aspiration. Carroll Arteaga MD Cervical Spine CT 01/15/16 0000 Signed Impressions: Service Date/Time: Friday, January 15, 2016 15:51 - CONCLUSION: No abscess observed. John Mills Jr., MD Upper Extremity CT 01/14/16 0000 Signed Impressions: Service Date/Time: Friday, January 15, 2016 16:08 - CONCLUSION: Small olecranon spur. Intact bony structures. No evidence of fluid collection or abscess formation Arian Stone MD Elbow X-Ray 01/14/16 0000 Signed Impressions: Service Date/Time: Thursday, January 14, 2016 13:05 - CONCLUSION: Possible soft tissue swelling overlying the olecranon. Otherwise negative exam Arian Stone MD Chest CT 01/14/16 0000 Signed Impressions: Service Date/Time: Thursday, January 14, 2016 15:37 - CONCLUSION: Right lower lobe interstitial change with a peripheral wedge shaped triangular area of parenchymal consolidation and associated small pleural effusion. Arian Stone MD Myocardial Perfusion Scan Nuc Med 01/13/16 0000 Signed Impressions: Service Date/Time: Wednesday, January 13, 2016 10:52 - CONCLUSION: Small size, moderate severity nonreversible apical perfusion abnormality. RISK CATEGORY: Low (<1%% Annual Mortality Rate) Jayce Ham MD Shoulder X-Ray 01/12/16 0000 Signed Impressions: Service Date/Time: Tuesday, January 12, 2016 09:24 - CONCLUSION: 1. No acute fracture or subluxation of the left shoulder. 2. Probably an old fracture of the distal clavicle, healed. 3. 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 Jayce Ng MD Knee X-Ray 01/11/16 1555 Signed Impressions: Service Date/Time: Monday, January 11, 2016 16:43 - CONCLUSION: Small joint effusion. Jessica Blackburn MD Objective Remarks GENERAL: Cachectic. Appears comfortable. SKIN: Warm and dry. HEAD: Normocephalic. EYES: No scleral icterus. No injection or drainage. NECK: Supple, trachea midline. No JVD. CARDIOVASCULAR: Regular rate and rhythm without murmurs, gallops, or rubs. RESPIRATORY: Breath sounds equal bilaterally. No accessory muscle use. GASTROINTESTINAL: Abdomen soft, non-tender, nondistended. MUSCULOSKELETAL: No cyanosis. trace right lower extremity edema Patient has multiple non-confluent subcentimeter nonblanching purpuric macules on the plantar surface of the right foot slowly resolving. BACK: Nontender without obvious deformity. No CVA tenderness. PSYCH: Flattened affect. Medications and IVs Current Medications Medications (Trade) Dose Ordered Sig/Smith Route Start Time Stop Time Status Last Admin (NS Flush) 2 ml UNSCH PRN FLUSH 01/11/16 18:45 02/03/16 04:06 (NS Flush) 2 ml BID FLUSH 01/11/16 21:00 02/06/16 09:49 (Tylenol) 650 mg Q4H PRN PO 01/11/16 18:45 01/14/16 18:25 (Dulcolax Supp) 10 mg DAILY PRN AR 01/11/16 18:45 (Milk Of Magnesia Liq) 30 ml Q12H PRN PO 01/11/16 18:45 (Narcan Inj) 0.4 mg UNSCH PRN IV 01/11/16 18:45 (D50w (Vial) Inj) 25 ml UNSCH PRN IV PUSH 01/11/16 19:00 (Glucagon Inj) 1 mg UNSCH PRN OTHER 01/11/16 19:00 ([place] 5-325 Mg) 1 tab Q4H PRN PO 01/11/16 19:15 02/06/16 09:54 (Morphine Inj) 2 mg Q3H PRN IV PUSH 01/11/16 19:15 01/31/16 21:43 (Tums Chew) 500 mg Q12HR CHEW 01/13/16 09:00 02/06/16 09:47 Atorvastatin Calcium 40 mg 40 mg HS PO 01/15/16 21:00 02/05/16 20:19 (Lr 1000 ml Inj) 1,000 ml @ 30 mls/hr Q24H IV 01/15/16 11:00 (Rifampin) 150 mg Q12HR PO 01/15/16 13:00 02/06/16 09:47 (Zofran Inj) 4 mg Q6HR PRN IV PUSH 01/22/16 00:30 (Pill Splitter) 1 ea UNSCH PRN OTHER 01/22/16 08:15 (KCl) 30 meq Q12HR PO 01/23/16 09:00 02/06/16 09:46 (Vasotec Inj) 1.25 mg Q6H PRN IV PUSH 01/23/16 13:15 02/02/16 10:19 Insulin Detemir 5 units 5 units HS SQ 01/26/16 21:45 02/05/16 20:20 (Coumadin Consult Pharmacy) 0 ml @ 0 mls/hr UNSCH OTHER 01/28/16 14:15 (Diflucan) 100 mg DAILY PO 01/30/16 09:00 02/06/16 09:48 (Coumadin) 2.5 mg DAILY@16 PO 02/02/16 16:00 02/05/16 17:27 (Norvasc) 10 mg DAILY PO 02/03/16 09:00 02/06/16 09:47 (NS Flush) See Protocol DAILY IVF 02/03/16 09:00 02/06/16 09:49 (NS Flush) See Protocol UNSCH PRN IVF 02/03/16 02:15 (Heparin Central Flush) See Protocol DAILY IVF 02/03/16 09:00 02/06/16 09:48 (Heparin Central Flush) See Protocol UNSCH PRN IVF 02/03/16 02:15 02/05/16 07:45 (NS Flush) See Protocol UNSCH PRN IVF 02/03/16 02:15 02/05/16 07:45 Dronabinol 2.5 mg 2.5 mg BID@11,16 PO 02/04/16 11:00 02/05/16 17:27 Cefazolin Sodium 1000 mg/Sodium Chloride 100 ml @ 200 mls/hr Q12H IV 02/06/16 16:00 (INVanz INJ/NS Inj) 100 ml @ 200 mls/hr Q24H IV 02/06/16 13:00 02/13/16 12:59 02/06/16 13:46 A/P Problem List: (1) Sepsis ICD Code: A41.9 Status: Resolved (2) UTI (urinary tract infection) ICD Code: N39.0 Status: Acute (3) Neurogenic bladder ICD Code: N31.9 Status: Chronic (4) Acute on chronic renal insufficiency ICD Code: N28.9 Status: Acute (5) Rhabdomyolysis ICD Code: M62.82 Status: Acute (6) Elevated troponin ICD Code: R79.89 Status: Acute (7) DVT (deep venous thrombosis) ICD Code: I82.409 Status: Acute (8) DM (diabetes mellitus) ICD Code: E11.9 Status: Chronic Assessment and Plan Sepsis, persistent MSSA bacteremia Suspected endocarditis despite negative CHUCHO. - continue antibiotics per ID. Ertapenem stop date 02/12. The pt may not be discharged from the hospital until then per ID. Discharge instructions per infectious disease are in place. - Will need weekly CBC with differential, CMP as patient is on rifampin, CRP every week. 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 Dr. Alavrenga on consult for second opinion and has offered surgery, patient now stating he would like to stay at [facility] for surgery, however surgery on hold as there is now a question of patient's capacity as his mental status waxes and wanes as well as family's understanding of risks/benefits of proceeding with surgery, as patient has multiple other underlying serious infections and is clearly high risk for surgery. - Palliative care following. - Appreciate vascular surgery assistance. No surgery at this time. - Continue antibiotics as per ID. Severe emphysematous UTI (recurrent or worsening as compared to previous CT done 09/2014) - with air in the extraperitoneal pelvis suggestive of possible developing fistula or bladder perforation. Urine cx growing E. Coli ESBL and staph aureus. - Plan is to continue Payan and antibiotics for some weeks and repeat CT in 2 weeks as usually extraperitoneal bladder perforation will heal on their own. - The patient is on ertapenem start date 01/12 for this infection. - Appreciate infectious disease and urology assistance. Continue with Payan. Continue antibiotics as per infectious disease. - 01/26 repeat urinalysis with yeast. Infectious disease started on fluconazole 01/29. Acute metabolic encephalopathy/ Hospital delirium Improving at times, however patient's daughter states he is nowhere near baseline. CT head 01/20 with no acute intracranial abnormality. Altered mental status likely secondary to systemic infection. Seems stable 02/05. - improving with treatment of underlying medical illnesses. - Cont ST. Severe, persistent hypokalemia Improved 02/05. - continue repletion 30 meq PO BID. - follow BMP. Chronic urinary retention Possibly due to neurogenic bladder. Self catheterizes at home. - Continue Payan as per urology. Urology recommends suprapubic catheter in the future as outpatient. Acute on Chronic kidney injury: Creatinine 3.55 on admission. Improved. Stable 02/05. - Continue to monitor renal function. Elevated Trop Trop 0.07, EKG w/ no acute changes. Likely secondary to worsening renal function. ECHO which showed EF 55-60%. Stress test showed " Small size, moderate severity nonreversible apical perfusion abnormality, low risk". Appreciate cardiology input. - medical management. DM type 2 Hgb A1c 8%. Glucose well controlled 02/05. - Continue sliding scale w/ Accu-Cheks. - Continue to monitor. DVT of right upper popliteal and peroneal tributary, and of right upper extremity in the brachial vein Appreciate hematology input. - INR therapeutic, heparin gtt d/c 02/05. - Will need at least 3 months AC for provoked DVT. Severe protein calorie malnutrition Appreciate dietary recommendations. - Start 2500-calorie diabetic diet. Glucerna shakes 3 times a day. - trial of Marinol. DVT prophylaxis: Patient is on therapeutic treatment for DVT. Discharge Planning Will need to remain in the hospital until ertapenem is done on 02/13/16. Problem Qualifiers (1) Sepsis: Qualified Code: A41.01 - Sepsis due to Methicillin susceptible Staphylococcus aureus (2) DVT (deep venous thrombosis): Qualified Code: I82.431 - Deep vein thrombosis (DVT) of popliteal vein of right lower extremity, unspecified chronicity (3) DM (diabetes mellitus): Jarvis Pickard DO Feb 06, 2016 17:10
[2016-02-06] MEDS: WARFARIN SOD 2.5 MG TAB PO SCH (17:16)
[2016-02-06] MEDS: ceFAZolin 1,000 MG/NS 100 ML IV SCH ×2 (17:16)
--- NOTE | 2016-02-06 17:28 | PD.ONC.PN ---
Subjective Subjective Remarks No new c/o. No report of bleeding. Objective Data Date Time Temp Pulse Resp B/P Pulse Ox O2 Delivery O2 Flow Rate FiO2 02/06/16 16:47 97.5 118 18 132/88 97 02/06/16 12:47 98.2 109 18 138/79 96 02/06/16 08:00 98.3 117 18 141/82 96 02/06/16 04:00 98.4 104 18 133/81 96 02/06/16 00:00 98.5 108 16 132/88 97 02/05/16 20:00 97.6 106 16 161/94 98 02/06/16 02/06/16 02/06/16 07:00 15:00 23:00 Intake Total 292 ml 200 ml Output Total 250 ml Balance 42 ml 200 ml Result Diagram: 02/04/16 0451 02/06/16 0420 Laboratory Results Laboratory Tests Test 02/06/16 04:20 Prothrombin Time 26.0 SEC Prothromb Time International 2.3 RATIO Ratio Activated Partial 59.4 SEC Thromboplast Time Sodium Level 139 MEQ/L Potassium Level 3.9 MEQ/L Chloride Level 103 MEQ/L Carbon Dioxide Level 27.4 MEQ/L Anion Gap 9 MEQ/L Blood Urea Nitrogen 29 MG/DL Creatinine 2.58 MG/DL Estimat Glomerular Filtration 25 ML/MIN Rate Random Glucose 98 MG/DL Calcium Level 9.0 MG/DL Administered Medications Medications (Trade) Dose Ordered Sig/Smith Route PRN Reason Start Time Stop Time Status Last Admin Dose Admin IV Flush (NS Flush) 2 ml UNSCH PRN FLUSH FLUSH AFTER USING IV ACCESS 01/11/16 18:45 02/03/16 04:06 IV Flush (NS Flush) 2 ml BID FLUSH 01/11/16 21:00 02/06/16 09:49 Acetaminophen (Tylenol) 650 mg Q4H PRN PO FEVER/PAIN 1-2 01/11/16 18:45 01/14/16 18:25 Acetaminophen/ Hydrocodone Bitart ([place] 5-325 Mg) 1 tab Q4H PRN PO PAIN 3-5 01/11/16 19:15 02/06/16 09:54 Morphine Sulfate (Morphine Inj) 2 mg Q3H PRN IV PUSH PAIN 6-10 01/11/16 19:15 01/31/16 21:43 Calcium Carbonate (Tums Chew) 500 mg Q12HR CHEW 01/13/16 09:00 02/06/16 09:47 Atorvastatin Calcium (Lipitor) 40 mg HS PO 01/15/16 21:00 02/05/16 20:19 Rifampin (Rifampin) 150 mg Q12HR PO 01/15/16 13:00 02/06/16 09:47 Potassium Chloride (KCl) 30 meq Q12HR PO 01/23/16 09:00 02/06/16 09:46 Enalaprilat (Vasotec Inj) 1.25 mg Q6H PRN IV PUSH SBP> OR = 180, DBP> OR = 100 01/23/16 13:15 02/02/16 10:19 Insulin Detemir (Levemir Inj) 5 units HS SQ 01/26/16 21:45 02/05/16 20:20 Fluconazole (Diflucan) 100 mg DAILY PO 01/30/16 09:00 02/06/16 09:48 Warfarin Sodium (Coumadin) 2.5 mg DAILY@16 PO 02/02/16 16:00 02/05/16 17:27 Amlodipine Besylate (Norvasc) 10 mg DAILY PO 02/03/16 09:00 02/06/16 09:47 IV Flush (NS Flush) See Protocol DAILY IVF 02/03/16 09:00 02/06/16 09:49 Heparin Sodium (Porcine) (Heparin Central Flush) See Protocol DAILY IVF 02/03/16 09:00 02/06/16 09:48 Heparin Sodium (Porcine) (Heparin Central Flush) See Protocol UNSCH PRN IVF SEE PROTOCOL TABLE 02/03/16 02:15 02/05/16 07:45 IV Flush (NS Flush) See Protocol UNSCH PRN IVF SEE PROTOCOL TABLE 02/03/16 02:15 02/05/16 07:45 Dronabinol 2.5 mg 2.5 mg BID@,16 PO 02/04/16 11:00 02/05/16 17:27 Ertapenem/Sodium Chloride (INVanz INJ/NS Inj) 100 ml @ 200 mls/hr Q24H IV 02/06/16 13:00 02/13/16 12:59 02/06/16 13:46 Objective Remarks GENERAL: Cachectic and weak. SKIN: Warm and dry. HEAD: Normocephalic. EYES: No scleral icterus. No injection or drainage. NECK: Supple, trachea midline. No JVD or lymphadenopathy. LYMPHATIC: No adenopathy. CARDIOVASCULAR: Regular rate and rhythm without murmurs. RESPIRATORY: Breath sounds equal bilaterally. No accessory muscle use. GASTROINTESTINAL: Abdomen soft, non-tender, nondistended. EXTREMITIES: No cyanosis, or edema. RLE slightly tender. MUSCULOSKELETAL: Adequate muscle tone. NEUROLOGICAL: No obvious focal deficit. Awake, alert, and oriented x3. Assessment/Plan Problem List: (1) DVT (deep venous thrombosis) Status: Acute Plan: 02/06/16: On heparin and coumadin. No bleeding. INR up to 2.3. No LE edema. Heparin was d/c. 01/28/16: continue heparin bridge to coumadin. d/w Dr. Bustillo, [facility], they will continue to monitor bridge (will consult pharmacy for assistance) 01/27/16: Spoke with Dr. Stubbs's [employer]. No procedures are planned. We will start Coumadin at a low dose for DVT prevention (1mg po daily). Daily PT/INR. 01/24/16: INR improved to 1.2 today. continue heparin drip. await completion of all procedures before transitioning to oral therapy History --Right lower extremity deep venous thrombosis and right upper extremity deep venous thrombosis. --likely triggered by sepsis and immobility. --was laying on the floor for several hours the day prior to presentation. --also a possibility that he had a PICC line placed on the right upper extremity during his hospital stay at [facility] a week prior to presentation. --the thrombosis appeared to be provoked. (2) Sepsis Status: Resolved Plan: --d/t UTI and vascular graft --on multiple antibiotics. (3) Neurogenic bladder Status: Chronic Plan: --urology following. --Neurogenic bladder with recurrent urinary tract infection. --has been self-catheterizing. (4) Vascular graft infection Status: Acute Plan: --CTS following, no surgery recommended. Assessment 70y/o male with newly diagnosed DVT's, admitted with urosepsis. h/o Diabetes mellitus. Hepatitis C. He was receiving treatment at [facility]. Plan 1. continue coumadin, heparin was d/c. 2. monitor INR and CBC Problem Qualifiers (1) DVT (deep venous thrombosis): Qualified Code: I82.431 - Deep vein thrombosis (DVT) of popliteal vein of right lower extremity, unspecified chronicity (2) Sepsis: Qualified Code: A41.01 - Sepsis due to Methicillin susceptible Staphylococcus aureus Osbaldo Flowers MD Feb 06, 2016 17:28
[2016-02-06 20:00] VITALS: BP 106/80; PULSE 112; RESP 17; TEMP 98.6; O2SAT 98
[2016-02-06] MEDS: ATORVASTATIN 40 MG TAB PO SCH (22:20)
[2016-02-06] MEDS: INSULIN DETEMIR 100 UNITS/ML VIAL SQ SCH (22:23)
[2016-02-07] VITALS: BP 127/73; PULSE 103; RESP 16; TEMP 97.7; O2SAT 98
[2016-02-07] MEDS: MORPHINE SULFATE 4 MG/ML INJ IV PUSH PRN (01:24)
[2016-02-07 04:00] VITALS: BP 111/79; PULSE 78; RESP 17; TEMP 97.6; O2SAT 98
[2016-02-07] MEDS: ceFAZolin 1,000 MG/NS 100 ML IV SCH ×4 (04:28→17:05)
[2016-02-07] MEDS: INSULIN ASPART SUPPLEMENTAL SCALE SQ SCH ×4 (06:38→21:18)
[2016-02-07 06:39] LABS: HEMATOCRIT 28.4 % (39.0-51.0); MEAN CELL VOLUME 92.3 FL (80.0-100.0); MEAN CORPUSCULAR HGB CONC 33.6 % (32.0-36.0); PLATELET COUNT 378 TH/MM3 (150-450); RED BLOOD COUNT 3.07 MIL/MM3 (4.50-5.90); REVIEW FLAG FINAL; WHITE BLOOD COUNT 14.1 TH/MM3 (4.0-11.0)
[2016-02-07 06:50] LABS: INTERNATIONAL NORMALIZED RATIO 2.4 RATIO; PROTHROMBIN TIME - PATIENT 28.1 SEC (9.8-11.6)
[2016-02-07 06:59] LABS: ALT (GPT) LESS THAN 6 U/L (12-78); ANION GAP 11 MEQ/L (5-15); AST (GOT) 9 U/L (15-37); BICARBONATE 24.3 MEQ/L (21.0-32.0); BLOOD UREA NITROGEN 33 MG/DL (7-18); CHLORIDE 104 MEQ/L (98-107); GLOMERULAR FILTRATION RATE 22 ML/MIN (>89); POTASSIUM 4.3 MEQ/L (3.5-5.1); SODIUM (NA) 139 MEQ/L (136-145)
[2016-02-07 07:01] LABS: ALKALINE PHOSPHATASE 84 U/L (45-117); TOTAL BILIRUBIN ADULT 0.1 MG/DL (0.2-1.0)
--- NOTE | 2016-02-07 07:53 | PD.ONC.PN ---
Subjective Subjective Remarks No new c/o. No bleeding. Objective Data Date Time Temp Pulse Resp B/P Pulse Ox O2 Delivery O2 Flow Rate FiO2 02/07/16 04:00 97.6 78 17 111/79 98 02/07/16 02:16 20 02/07/16 00:00 97.7 103 16 127/73 98 02/06/16 20:00 98.6 112 17 106/80 98 02/06/16 16:47 97.5 118 18 132/88 97 02/06/16 12:47 98.2 109 18 138/79 96 02/06/16 08:00 98.3 117 18 141/82 96 Result Diagram: 02/07/16 0430 02/07/16 0430 Laboratory Results Laboratory Tests Test 02/07/16 04:30 White Blood Count 14.1 TH/MM3 Red Blood Count 3.07 MIL/MM3 Hemoglobin 9.5 GM/DL Hematocrit 28.4 % Mean Corpuscular Volume 92.3 FL Mean Corpuscular Hemoglobin 31.0 PG Mean Corpuscular Hemoglobin 33.6 % Concent Red Cell Distribution Width 17.0 % Platelet Count 378 TH/MM3 Mean Platelet Volume 8.1 FL Prothrombin Time 28.1 SEC Prothromb Time International 2.4 RATIO Ratio Activated Partial 45.0 SEC Thromboplast Time Sodium Level 139 MEQ/L Potassium Level 4.3 MEQ/L Chloride Level 104 MEQ/L Carbon Dioxide Level 24.3 MEQ/L Anion Gap 11 MEQ/L Blood Urea Nitrogen 33 MG/DL Creatinine 2.86 MG/DL Estimat Glomerular Filtration 22 ML/MIN Rate Random Glucose 148 MG/DL Calcium Level 9.2 MG/DL Total Bilirubin 0.1 MG/DL Aspartate Amino Transf 9 U/L (AST/SGOT) Alanine Aminotransferase LESS THAN 6 U/L (ALT/SGPT) Alkaline Phosphatase 84 U/L C-Reactive Protein 13.60 MG/DL Total Protein 6.7 GM/DL Albumin 1.4 GM/DL Administered Medications Medications (Trade) Dose Ordered Sig/Smith Route PRN Reason Start Time Stop Time Status Last Admin Dose Admin IV Flush (NS Flush) 2 ml UNSCH PRN FLUSH FLUSH AFTER USING IV ACCESS 01/11/16 18:45 02/03/16 04:06 IV Flush (NS Flush) 2 ml BID FLUSH 01/11/16 21:00 02/06/16 22:22 Acetaminophen (Tylenol) 650 mg Q4H PRN PO FEVER/PAIN 1-2 01/11/16 18:45 01/14/16 18:25 Acetaminophen/ Hydrocodone Bitart ([place] 5-325 Mg) 1 tab Q4H PRN PO PAIN 3-5 01/11/16 19:15 02/06/16 09:54 Morphine Sulfate (Morphine Inj) 2 mg Q3H PRN IV PUSH PAIN 6-10 01/11/16 19:15 02/07/16 01:24 Calcium Carbonate (Tums Chew) 500 mg Q12HR CHEW 01/13/16 09:00 02/06/16 22:20 Atorvastatin Calcium (Lipitor) 40 mg HS PO 01/15/16 21:00 02/06/16 22:20 Rifampin (Rifampin) 150 mg Q12HR PO 01/15/16 13:00 02/06/16 22:20 Potassium Chloride (KCl) 30 meq Q12HR PO 01/23/16 09:00 02/06/16 22:21 Enalaprilat (Vasotec Inj) 1.25 mg Q6H PRN IV PUSH SBP> OR = 180, DBP> OR = 100 01/23/16 13:15 02/02/16 10:19 Insulin Detemir (Levemir Inj) 5 units HS SQ 01/26/16 21:45 02/06/16 22:23 Fluconazole (Diflucan) 100 mg DAILY PO 01/30/16 09:00 02/06/16 09:48 Warfarin Sodium (Coumadin) 2.5 mg DAILY@16 PO 02/02/16 16:00 02/06/16 17:16 Amlodipine Besylate (Norvasc) 10 mg DAILY PO 02/03/16 09:00 02/06/16 09:47 IV Flush (NS Flush) See Protocol DAILY IVF 02/03/16 09:00 02/06/16 09:49 Heparin Sodium (Porcine) (Heparin Central Flush) See Protocol DAILY IVF 02/03/16 09:00 02/06/16 09:48 Heparin Sodium (Porcine) (Heparin Central Flush) See Protocol UNSCH PRN IVF SEE PROTOCOL TABLE 02/03/16 02:15 02/07/16 04:28 IV Flush (NS Flush) See Protocol UNSCH PRN IVF SEE PROTOCOL TABLE 02/03/16 02:15 02/05/16 07:45 Dronabinol 2.5 mg 2.5 mg BID@11,16 PO 02/04/16 11:00 02/05/16 17:27 Cefazolin Sodium 1000 mg/Sodium Chloride 100 ml @ 200 mls/hr Q12H IV 02/06/16 16:00 02/07/16 04:28 Ertapenem/Sodium Chloride (INVanz INJ/NS Inj) 100 ml @ 200 mls/hr Q24H IV 02/06/16 13:00 02/13/16 12:59 02/06/16 13:46 Objective Remarks GENERAL: Cachectic and weak. SKIN: Warm and dry. HEAD: Normocephalic. EYES: No scleral icterus. No injection or drainage. NECK: Supple, trachea midline. No JVD or lymphadenopathy. LYMPHATIC: No adenopathy. CARDIOVASCULAR: Regular rate and rhythm without murmurs. RESPIRATORY: Breath sounds equal bilaterally. No accessory muscle use. GASTROINTESTINAL: Abdomen soft, non-tender, nondistended. EXTREMITIES: No cyanosis, RLE slightly tender but stable. No significant edema MUSCULOSKELETAL: Adequate muscle tone. NEUROLOGICAL: No obvious focal deficit. Awake, alert, and oriented x3. Assessment/Plan Problem List: (1) DVT (deep venous thrombosis) Status: Acute Plan: 02/07/16: INR 2.4. No bleeding. 02/06/16: On heparin and coumadin. No bleeding. INR up to 2.3. No LE edema. Heparin was d/c. 01/28/16: continue heparin bridge to coumadin. d/w Dr. Bustillo, [facility], they will continue to monitor bridge (will consult pharmacy for assistance) 01/27/16: Spoke with Dr. Stubbs's [employer]. No procedures are planned. We will start Coumadin at a low dose for DVT prevention (1mg po daily). Daily PT/INR. 01/24/16: INR improved to 1.2 today. continue heparin drip. await completion of all procedures before transitioning to oral therapy History --Right lower extremity deep venous thrombosis and right upper extremity deep venous thrombosis. --likely triggered by sepsis and immobility. --was laying on the floor for several hours the day prior to presentation. --also a possibility that he had a PICC line placed on the right upper extremity during his hospital stay at [facility] a week prior to presentation. --the thrombosis appeared to be provoked. (2) Sepsis Status: Resolved Plan: --d/t UTI and vascular graft --on multiple antibiotics. (3) Neurogenic bladder Status: Chronic Plan: --urology following. --Neurogenic bladder with recurrent urinary tract infection. --has been self-catheterizing. (4) Vascular graft infection Status: Acute Plan: --CTS following, no surgery recommended. Assessment 70y/o male with newly diagnosed DVT's, admitted with urosepsis. h/o Diabetes mellitus. Hepatitis C. He was receiving treatment at [facility]. Plan 1. continue coumadin. 2. monitor INR and CBC 3. No other hematologic recommendation, I will sign off. Problem Qualifiers (1) DVT (deep venous thrombosis): Qualified Code: I82.431 - Deep vein thrombosis (DVT) of popliteal vein of right lower extremity, unspecified chronicity (2) Sepsis: Qualified Code: A41.01 - Sepsis due to Methicillin susceptible Staphylococcus aureus Osbaldo Flowers MD Feb 07, 2016 07:53
[2016-02-07 08:00] VITALS: BP 112/78; PULSE 77; RESP 18; TEMP 97.5; O2SAT 97
[2016-02-07] MEDS: POTASSIUM CHLORIDE 10 MEQ CONTROLLED RELEASE TAB PO SCH ×2 (10:12→21:12)
[2016-02-07] MEDS: FLUCONAZOLE 100 MG TAB PO SCH (10:12)
[2016-02-07] MEDS: RIFAMPIN 150 MG CAP PO SCH ×2 (10:13→21:12)
[2016-02-07] MEDS: SODIUM CHLORIDE 0.9% FLUSH 5 ML FLUSH FLUSH SCH ×2 (10:13→21:13)
[2016-02-07] MEDS: CALCIUM CARBONATE 500 MG CHEWABLE TAB CHEW SCH ×2 (10:13→21:12)
[2016-02-07] MEDS: LACTATED RINGER'S 1000 ML IV SCH (10:14)
[2016-02-07] MEDS: ACETAMINOPHEN/HYDROcodone 325 MG/5 MG TAB PO PRN ×2 (10:49→17:04)
[2016-02-07] MEDS: DRONABINOL 2.5 MG CAP PO SCH ×2 (10:49→17:05)
--- NOTE | 2016-02-07 11:09 | HHI.HCPN ---
Reason for visit a. To assist with evaluation and management of symptoms including: Encephalopathy,weakness b. To assist medical decision maker(s) with: better understanding of current medical conditions; weighing benefits/burdens of medical treatment options; making medical treatment decisions. . Subjective/Interval History Patient was seen to follow up on comfort, goals w decision maker. Still with decreased appetite/oral intake. Nurse's reporting 25% of meal, ate 80% of one meal on 02/04. Patient apparently refused oral Marinol yesterday. Afebrile. Vital signs within normal limits. WBC up slightly, 14 today. He cont to be intermittently confused, though cooperative. PT notes pt very weak -requires maximum assistance, unable to ambulate beyond standing and pivoting. BUN/creatinine still trending upward 33/2.86. GFR 22. UOP adequate. CBC stable. Remains on rifampin, cefazolin, ertapenem, + fluconazole. Case management continues to work with family on discharge planning, still pending acceptance/insurance coverage of antibiotics. Likely will remain hospitalized until ertapenem is completed on 02/12/69 Patient seen in room no family or visitors present. He is awake, watching TV. Partially oriented to person and place and family though in general insight into hospitalization is poor. He denies pain currently. Denies nausea currently. Asked how his appetite is he tells me he is eating a popsicle. I do see a half eaten popsicle at bedside. Asked him about his medications and possible refusal yesterday, he denies this tells me he takes when he supposed to take and would refuse any medicines. Ask him how he is feeling in general he tells me that he would like to make recommendations to the hospital facility regarding their linens, he feels that " from him being in bed for 19 days " the linens are beginning to give him a rash and he believes it must be because they are made out of [place] and not 100% cotton. He feels that if materials of the linens were changed things would be better. Asked if I might see his rash he indicates that it is on his backside and he doesn't wish to turn over right now but he'll wait until they assist him with marycruz-care later. Ask him how his strength feels and about how working with therapy is going he tells me that he wants to try to get up out of bed but he feels weak and he needs help. Following exam call to daughter Puja, spoke with her at length, about 30 minutes. Review of current conditions, current treatments in place, antibiotic treatment courses/timelines as outlined by ID, current diagnostics/labs, vital signs, PT assessments, nutritional assessments, medications in place, possible pain/pain regimen. Re-visit that patient remains at risk for potential complications/setbacks related to progressive weakness, bedbound status. She was in to see the pt last night, feels he is still intermittently confused and not clear in his understanding of situation. She tells me that she spoke at length with case management yesterday, as well as her and family over the past few days. They do wish to enact DNR as consistent with patient's known wishes. She understands patient condition still declining, and that he remains at risk for additional complications/setbacks. She wants to give him through February 12 to complete ertapenem and then will make decisions regarding hospice. She wants to at least see him complete that antibiotic course to ensure that "she has given him every possible chance to try to make a meaningful recovery"; if after completion he has not made significant improvement she would like to proceed with hospice consultation and subsequent enrollment. Additionally she is open to revisiting that goal and consultation before then should he suffer significant clinical setback before February 12. Otherwise continue current aggressive management short of resuscitation, additionally she asserts patient would not want a feeding tube. . . Advance Directives Living Will: Never completed Health Care Surrogate: Never completed Durable Power of Human Factors Advisor Lead: Never completed Advance Directive Specifics Significant change in goals: DNR elected 01/27. Consider hospice on 02/13/16 Objective Vital Signs Date Time Temp Pulse Resp B/P Pulse Ox O2 Delivery O2 Flow Rate FiO2 02/07/16 08:00 97.5 77 18 112/78 97 02/07/16 04:00 97.6 78 17 111/79 98 02/07/16 02:16 20 02/07/16 00:00 97.7 103 16 127/73 98 02/06/16 20:00 98.6 112 17 106/80 98 02/06/16 16:47 97.5 118 18 132/88 97 12/29/16 12:47 98.2 109 18 138/79 96 Intake & Output 02/07/16 02/07/16 07:00 19:00 Intake Total 960 ml Output Total 1100 ml Balance -140 ml Intake Oral 960 ml Output Urine Total 1100 ml # Bowel Movements 2 Physical Exam CONSTITUTIONAL/GENERAL: Frail, elderly-appearing patient, alert, cooperative .no apparent distress. TUBES/LINES/DRAINS: PIV x 2/ PICC line LUE, Payan catheter-dark yellow urine CARDIOVASCULAR: Regular rate and rhythm, + murmur. Periph pulses palpable. RESPIRATORY/CHEST: Symmetric, unlabored respirations on room air. Clear to auscultation. Breath sounds equal bilaterally, no accessory muscle use GASTROINTESTINAL: Abdomen soft, flat, non-tender, nondistended. No hepato- splenomegaly, or palpable masses. Bowel sounds present. NEUROLOGICAL: Awake, cooperative. oriented times 23. Speech is mumbling, soft and difficult to understand. Poor, very limited insight into hospitalization. Cooperative, follows commands, moves all 4 extremities. PSYCHIATRIC: No obvious anxiety/depression . Diagnostic Tests Laboratory Laboratory Tests Test 02/04/16 02/05/16 02/06/16 02/07/16 12:00 05:55 04:20 04:30 Prothrombin Time 15.9 SEC 20.7 SEC 26.0 SEC 28.1 SEC (9.8-11.6) (9.8-11.6) (9.8-11.6) (9.8-11.6) Prothromb Time International 1.4 RATIO 1.8 RATIO 2.3 RATIO 2.4 RATIO Ratio Activated Partial 43.2 SEC 59.4 SEC 45.0 SEC Thromboplast Time (24.3-30.1) (24.3-30.1) (24.3-30.1) Sodium Level 141 MEQ/L 139 MEQ/L 139 MEQ/L (136-145) (136-145) (136-145) Potassium Level 3.8 MEQ/L 3.9 MEQ/L 4.3 MEQ/L (3.5-5.1) (3.5-5.1) (3.5-5.1) Chloride Level 104 MEQ/L 103 MEQ/L 104 MEQ/L (98-107) (98-107) (98-107) Carbon Dioxide Level 28.7 MEQ/L 27.4 MEQ/L 24.3 MEQ/L (21.0-32.0) (21.0-32.0) (21.0-32.0) Anion Gap 8 MEQ/L (5-15) 9 MEQ/L (5-15) 11 MEQ/L (5-15) Blood Urea Nitrogen 26 MG/DL (7-18) 29 MG/DL (7-18) 33 MG/DL (7-18) Creatinine 2.56 MG/DL 2.58 MG/DL 2.86 MG/DL (0.60-1.30) (0.60-1.30) (0.60-1.30) Estimat Glomerular Filtration 25 ML/MIN (>89) 25 ML/MIN (>89) 22 ML/MIN (>89) Rate Random Glucose 113 MG/DL 98 MG/DL 148 MG/DL (74-106) (74-106) (74-106) Calcium Level 8.9 MG/DL 9.0 MG/DL 9.2 MG/DL (8.5-10.1) (8.5-10.1) (8.5-10.1) Magnesium Level 1.8 MG/DL (1.5-2.5) White Blood Count 14.1 TH/MM3 (4.0-11.0) Red Blood Count 3.07 MIL/MM3 (4.50-5.90) Hemoglobin 9.5 GM/DL (13.0-17.0) Hematocrit 28.4 % (39.0-51.0) Mean Corpuscular Volume 92.3 FL (80.0-100.0) Mean Corpuscular Hemoglobin 31.0 PG (27.0-34.0) Mean Corpuscular Hemoglobin 33.6 % Concent (32.0-36.0) Red Cell Distribution Width 17.0 % (11.6-17.2) Platelet Count 378 TH/MM3 (150-450) Mean Platelet Volume 8.1 FL (7.0-11.0) Total Bilirubin 0.1 MG/DL (0.2-1.0) Aspartate Amino Transf 9 U/L (15-37) (AST/SGOT) Alanine Aminotransferase LESS THAN 6 (ALT/SGPT) U/L (12-78) Alkaline Phosphatase 84 U/L (45-117) C-Reactive Protein 13.60 MG/DL (0.00-0.30) Total Protein 6.7 GM/DL (6.4-8.2) Albumin 1.4 GM/DL (3.4-5.0) Result Diagram: 02/07/16 0430 02/07/16 0430 Imaging Last Impressions Chest X-Ray 02/01/16 0000 Signed Impressions: Service Date/Time: Monday, February 01, 2016 10:18 - CONCLUSION: 1. Interval placement of left-sided PICC line. 2. No acute cardiopulmonary disease. Jarvis Pathak MD Lower Extremity Ultrasound 01/24/16 0426 Signed Impressions: Service Date/Time: Sunday, January 24, 2016 11:48 - CONCLUSION: 1. Significant decrease in the perianastomotic fluid collection Shon Mancilla MD Abdomen/Pelvis CT 01/23/16 0600 Signed Impressions: Service Date/Time: January 09:35 - CONCLUSION: 1. 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 2. Diverticulosis without evidence of diverticulitis. 3. Small bilateral effusions Shon Mancilla MD Head CT 01/21/16 0000 Signed Impressions: Service Date/Time: Thursday, January 21, 2016 10:58 - CONCLUSION: 1. No acute intracranial abnormality is identified. 2. Chronic changes include mild cerebral atrophy and periventricular white matter low attenuation characteristic of chronic microvascular ischemia. Additionally, there is encephalomalacia in the right frontal lobe likely related to prior ischemia. 3. 9 mm extra-axial ossification in the right parietal high convexity may represent a calcified meningioma. Jayce Peck MD Upper Extremity Ultrasound 01/20/16 0000 Signed Impressions: Service Date/Time: Wednesday, January 20, 2016 12:05 - CONCLUSION: Venous mapping as detailed above. John Mills Jr., MD Lower Extremity CT 01/19/16 0000 Signed Impressions: Service Date/Time: Wednesday, January 20, 2016 08:25 - CONCLUSION: 1. Abnormal cortical thickening involving tibia and fibula. This may reflect osteomyelitis. If there is necessity for further evaluation contrast-enhanced MRI is recommended. Shon Mancilla MD Needle Aspiration Ultrasound 01/17/16 0000 Signed Impressions: Service Date/Time: Sunday, January 17, 2016 16:03 - CONCLUSION: Uncomplicated ultrasound guided aspiration. Carroll Arteaga MD Cervical Spine CT 01/15/16 0000 Signed Impressions: Service Date/Time: Friday, January 15, 2016 15:51 - CONCLUSION: No abscess observed. John Mills Jr., MD Upper Extremity CT 01/14/16 0000 Signed Impressions: Service Date/Time: Friday, January 15, 2016 16:08 - CONCLUSION: Small olecranon spur. Intact bony structures. No evidence of fluid collection or abscess formation Arian Stone MD Elbow X-Ray 01/14/16 0000 Signed Impressions: Service Date/Time: Thursday, January 14, 2016 13:05 - CONCLUSION: Possible soft tissue swelling overlying the olecranon. Otherwise negative exam Arian Stone MD Chest CT 01/14/16 0000 Signed Impressions: Service Date/Time: Thursday, January 14, 2016 15:37 - CONCLUSION: Right lower lobe interstitial change with a peripheral wedge shaped triangular area of parenchymal consolidation and associated small pleural effusion. Arian Stone MD Myocardial Perfusion Scan Nuc Med 01/13/16 0000 Signed Impressions: Service Date/Time: Wednesday, January 13, 2016 10:52 - CONCLUSION: Small size, moderate severity nonreversible apical perfusion abnormality. RISK CATEGORY: Low (<1%% Annual Mortality Rate) Jayce Ham MD Shoulder X-Ray 01/12/16 0000 Signed Impressions: Service Date/Time: Tuesday, January 12, 2016 09:24 - CONCLUSION: 1. No acute fracture or subluxation of the left shoulder. 2. Probably an old fracture of the distal clavicle, healed. 3. 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 Jayce Ng MD Knee X-Ray 01/11/16 7885 Signed Impressions: Service Date/Time: Monday, January 11, 2016 16:43 - CONCLUSION: Small joint effusion. Jessica Blackburn MD Procedures 01/16 ultrasound-guided drainage of complex fluid around right femoral graft. Assessment and Plan Disease Oriented Problem List: (1) Sepsis (2) Acute on chronic renal insufficiency (3) UTI (urinary tract infection) (4) DM (diabetes mellitus) (5) Leukocytosis (6) DVT (deep venous thrombosis) (7) Heart murmur (8) Perivascular/Graft abcess (9) Emphysematous cystitis (10) Endocarditis Comment: Suspected endocarditis despite negative CHUCHO, concern for septic emboli (11) Neurogenic bladder (12) Hypokalemia Symptom Scale: (1) Encephalopathy (2) Pain Comment: Endorsed some pain on admission to lower extremities Pertinent Non-Medical Issues Psychosocial:originally from [place] though has lived in [place] for many years. . Retired. Has one adult daughter whom he lives with. Has 3 grandchildren who also live with him and the daughter, school-aged. He participates in their care. Active prior to this hospitalization, enjoys golf. Spiritual: [employer], Dependency Director known to him has been in Legal:Patient appears to have some limited insight into conditions and options though at times seems to have fairly limited ability to weigh benefits/burdens for decision-making. His neurological status appears to wax and wane based on reports.Recommend Shared decision making involving the patient and his daughter . His daughter Puja is his only child and would be appropriate proxy per [place] statutes. Ethical issues impacting care: Important Contacts Puja Bose daughter [phone] Prognosis This patient was admitted for UTI, sepsis. Subsequently has had findings of fluid accumulation, questionable abscess around old bypass graft. Recommended for urgent surgery for removal of graft. Neurological status has waxed and waned, seems to have had an underlying old stroke. Given advanced age and recent recurrent illnesses does remain high risk for further complications and setbacks. If the patient elected not to undergo aggressive interventions such as surgeries to remove graft, etc. may be appropriate for hospice and comfort measures only if goals compatible. Code Status: No Code Plan * Legal decision makerPatient appears to have some limited insight into conditions and options though at times seems to have fairly limited ability to weigh benefits/burdens for decision-making. His neurological status appears to wax and wane based on reports. Would recommend Shared decision making involving the patient and his daughter in any decision-making to ensure full understanding of associated benefits/burdens. His daughter Puja is his only child and would be appropriate proxy per [place] statutes. * Goals02/05/16: Spoke with kev Luo at length via phone. See subjective component for additional detail. In summary: She wants to continue aggressive course if they continue to see stability or improvement --she endorses she wants to be certain that she has given him every chance to try to improve and, "does not want him to feel he has been given up on". However she is open to revisiting goals of treatment and possibly considering comfort oriented treatment if patient has additional decline in condition. In terms of a feeding tube she does not think that she would proceed with a feeding tube though is not certain at this time this would be pending other conditions at that time. 02/07/16review of goals with kev Luo. She wishes to continue aggressive course short of resuscitation through February 12 when ertapenem is due to complete. If patient has not seen significant improvement at that time she will proceed with hospice consultation and enrollment. If he has significant clinical setback prior to that time she is open to revisiting goals , but otherwise wants to continue aggressive measures until then. To continue the ertapenem until completion to feel as if she has given him a fair chance at recovery. She does elects DNR status today. She also endorses patient would NOT want a feeding tube. * CODE STATUS- DNR * SYMPTOMS --Encephalopathy: Neuro status cont to wax and wane, history of old CVA based on imaging in prior records. Etio likely multifactorial --Pain- Upon admission the patient endorsed some pain to lower extremities. no specific c/o pain today. PRN morphine, [place] available. Has been using 2-3 doses of [place] a day, has required 1 dose thus far today. (Nursing reports pain of 458 to shoulder.) We'll continue to evaluate requirements/ effectiveness of PRNS. prior conversations w kev Luo use of analgesics, and weighing pain relief with sedation risks, and concern about patient's fluctuating mental status. -- malnutrition- poor appetite for weeks. est. caloric requirements per R.D. = 2700 low end. Based on recorded intake pt appears to be consuming 200-300 calories a day- was started on marinol yesterday, slight improvement in appetite today per nursing. will cont to evaluate. Will require feeding tube for artificial nutrition to meet caloric needs if goals are aggressive. d/w dtr , she indicates pt would NOT want feeding tube [albumin 1.3] * Palliative care will continue to follow during hospital course as condition evolves, to assist patient/decision-maker with understanding of medical conditions, weighing benefits/burdens of treatment options, for clarification of goals of treatment. Additionally will assist with any symptoms of palliative concern . Time Spent Total Floor Time (mins): 40 >50% Counseling/Coord of Care: Yes (d/w attending, NORMAN ) Attestation To help prompt me to consider important information that might be impacting today's encounter and assessment, information from prior notes written by myself or my colleagues may have been "brought forward" into today's note. My signature on this note, however, is an attestation that I personally performed the exam, history, and/or decision-making noted today, and, unless otherwise indicated, the interactions with patient, family, and staff as well as the review of records all occurred today. I also attest that the listed assessment and stated plan reflect my best clinical judgment today based on the combination of historical information, prior notes, and today's exam/ interactions. When time spent is documented, it refers only to time spent today by the signer, or if indicated, combined time spent today by collaborating physician/nurse practitioner. Piper Steve Feb 07, 2016 11:09
[2016-02-07 12:00] VITALS: BP 120/82; PULSE 107; RESP 18; TEMP 98; O2SAT 97
[2016-02-07] MEDS: ERTAPENEM INJ 500 MG in SODIUM CHLORIDE 0.9% INJ 100 ML IV SCH (12:21)
[2016-02-07 16:00] VITALS: BP 115/80; PULSE 105; RESP 17; TEMP 97.4; O2SAT 97
--- NOTE | 2016-02-07 16:47 | HHI.PR ---
Subjective Remarks Follow-up sepsis 02/07/16-patient seen and examined, no acute event overnight. Currently stable and afebrile. Denies any chest pain or shortness of breath. Objective Vitals Vital Signs Date Time Temp Pulse Resp B/P Pulse Ox O2 Delivery O2 Flow Rate FiO2 02/07/16 12:00 98.0 107 18 120/82 97 02/07/16 08:00 97.5 77 18 112/78 97 02/07/16 04:00 97.6 78 17 111/79 98 02/07/16 02:16 20 02/07/16 00:00 97.7 103 16 127/73 98 02/06/16 20:00 98.6 112 17 106/80 98 02/06/16 16:47 97.5 118 18 132/88 97 I/O 02/06/16 02/06/16 02/06/16 02/07/16 02/07/16 02/07/16 07:00 15:00 23:00 07:00 15:00 23:00 Intake Total 292 ml 300 ml 680 ml 480 ml 300 ml Output Total 250 ml 800 ml 450 ml 650 ml Balance 42 ml -500 ml 230 ml -170 ml 300 ml Intake Oral 150 ml 300 ml 480 ml 480 ml 300 ml IV Total 142 ml 200 ml Output Urine Total 250 ml 800 ml 450 ml 650 ml # Bowel Movements 1 1 1 1 1 Result Diagram: 02/07/16 0430 02/07/16 0430 Imaging Last Impressions Chest X-Ray 02/01/16 0000 Signed Impressions: Service Date/Time: Monday, February 01, 2016 10:18 - CONCLUSION: 1. Interval placement of left-sided PICC line. 2. No acute cardiopulmonary disease. Jarvis Pathak MD Lower Extremity Ultrasound 01/24/16 0426 Signed Impressions: Service Date/Time: Sunday, January 24, 2016 11:48 - CONCLUSION: 1. Significant decrease in the perianastomotic fluid collection Shon Mancilla MD Abdomen/Pelvis CT 01/23/16 0600 Signed Impressions: Service Date/Time: January 09:35 - CONCLUSION: 1. 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 2. Diverticulosis without evidence of diverticulitis. 3. Small bilateral effusions Shon Mancilla MD Head CT 01/21/16 0000 Signed Impressions: Service Date/Time: Thursday, January 21, 2016 10:58 - CONCLUSION: 1. No acute intracranial abnormality is identified. 2. Chronic changes include mild cerebral atrophy and periventricular white matter low attenuation characteristic of chronic microvascular ischemia. Additionally, there is encephalomalacia in the right frontal lobe likely related to prior ischemia. 3. 9 mm extra-axial ossification in the right parietal high convexity may represent a calcified meningioma. Jayce Peck MD Upper Extremity Ultrasound 01/20/16 0000 Signed Impressions: Service Date/Time: Wednesday, January 20, 2016 12:05 - CONCLUSION: Venous mapping as detailed above. John Mills Jr., MD Lower Extremity CT 01/19/16 0000 Signed Impressions: Service Date/Time: Wednesday, January 20, 2016 08:25 - CONCLUSION: 1. Abnormal cortical thickening involving tibia and fibula. This may reflect osteomyelitis. If there is necessity for further evaluation contrast-enhanced MRI is recommended. Shon Mancilla MD Needle Aspiration Ultrasound 01/17/16 0000 Signed Impressions: Service Date/Time: Sunday, January 17, 2016 16:03 - CONCLUSION: Uncomplicated ultrasound guided aspiration. Carroll Arteaga MD Cervical Spine CT 01/15/16 0000 Signed Impressions: Service Date/Time: Friday, January 15, 2016 15:51 - CONCLUSION: No abscess observed. John Mills Jr., MD Upper Extremity CT 01/14/16 0000 Signed Impressions: Service Date/Time: Friday, January 15, 2016 16:08 - CONCLUSION: Small olecranon spur. Intact bony structures. No evidence of fluid collection or abscess formation Arian Stone MD Elbow X-Ray 01/14/16 0000 Signed Impressions: Service Date/Time: Thursday, January 14, 2016 13:05 - CONCLUSION: Possible soft tissue swelling overlying the olecranon. Otherwise negative exam Arian Stone MD Chest CT 01/14/16 0000 Signed Impressions: Service Date/Time: Thursday, January 14, 2016 15:37 - CONCLUSION: Right lower lobe interstitial change with a peripheral wedge shaped triangular area of parenchymal consolidation and associated small pleural effusion. Arian Stone MD Myocardial Perfusion Scan Nuc Med 01/13/16 0000 Signed Impressions: Service Date/Time: Wednesday, January 13, 2016 10:52 - CONCLUSION: Small size, moderate severity nonreversible apical perfusion abnormality. RISK CATEGORY: Low (<1%% Annual Mortality Rate) Jayce Ham MD Shoulder X-Ray 01/12/16 0000 Signed Impressions: Service Date/Time: Tuesday, January 12, 2016 09:24 - CONCLUSION: 1. No acute fracture or subluxation of the left shoulder. 2. Probably an old fracture of the distal clavicle, healed. 3. 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 Jayce Ng MD Knee X-Ray 01/11/16 1555 Signed Impressions: Service Date/Time: Monday, January 11, 2016 16:43 - CONCLUSION: Small joint effusion. Jessica Blackburn MD Objective Remarks GENERAL: NAD SKIN: Warm and dry. HEAD: Normocephalic. EYES: No scleral icterus. No injection or drainage. NECK: Supple, trachea midline. No JVD or lymphadenopathy. CARDIOVASCULAR: Regular rate and rhythm without murmurs, gallops, or rubs. RESPIRATORY: Breath sounds equal bilaterally. No accessory muscle use. GASTROINTESTINAL: Abdomen soft, non-tender, nondistended. MUSCULOSKELETAL: No cyanosis, or edema. BACK: Nontender without obvious deformity. No CVA tenderness. A/P Problem List: (1) Sepsis ICD Code: A41.9 Status: Resolved (2) UTI (urinary tract infection) ICD Code: N39.0 Status: Acute (3) Neurogenic bladder ICD Code: N31.9 Status: Chronic (4) Acute on chronic renal insufficiency ICD Code: N28.9 Status: Acute (5) Rhabdomyolysis ICD Code: M62.82 Status: Acute (6) Elevated troponin ICD Code: R79.89 Status: Acute (7) DVT (deep venous thrombosis) ICD Code: I82.409 Status: Acute (8) DM (diabetes mellitus) ICD Code: E11.9 Status: Chronic Assessment and Plan 70-year-old male with Sepsis, persistent MSSA bacteremia Suspected endocarditis despite negative CHUCHO. - continue antibiotics per ID. Ertapenem stop date 02/12. - Will need weekly CBC with differential, CMP as patient is on rifampin, CRP every week. Infected right fem pop graft - Palliative care following. - Appreciate vascular surgery assistance. No surgery at this time. - Continue antibiotics as per ID. Severe emphysematous UTI (recurrent or worsening as compared to previous CT done 09/2014) - with air in the extraperitoneal pelvis suggestive of possible developing fistula or bladder perforation. Urine cx growing E. Coli ESBL and staph aureus. - Plan is to continue Payan and antibiotics for some weeks and repeat CT in 2 weeks as usually extraperitoneal bladder perforation will heal on their own. - Appreciate infectious disease and urology assistance. - on ertapenem start date 01/12 for this infection and fluconazole 01/29. Acute metabolic encephalopathy/ Hospital delirium Improving at times. CT head 01/20 with no acute intracranial abnormality. - improving with treatment of underlying medical illnesses. - Cont ST. Severe, persistent hypokalemia _resolved continue with supplements 30 mEq by mouth twice a day Chronic urinary retention Possibly due to neurogenic bladder.Continue Payan as per urology. Urology recommends suprapubic catheter in the future as outpatient. Acute on Chronic kidney injury: Creatinine 3.55 on admission. Improved. - Continue to monitor renal function. Elevated Trop Trop 0.07, EKG w/ no acute changes. Likely secondary to worsening renal function. ECHO which showed EF 55-60%. Stress test showed " Small size, moderate severity nonreversible apical perfusion abnormality, low risk". Appreciate cardiology input. - medical management. DM type 2 Hgb A1c 8%. Glucose well controlled 02/05. - Continue sliding scale w/ Accu-Cheks. - Continue to monitor. DVT of right upper popliteal and peroneal tributary, and of right upper extremity in the brachial vein Appreciate hematology input. - INR therapeutic, heparin gtt d/c 02/05. - Will need at least 3 months AC for provoked DVT. Severe protein calorie malnutrition Appreciate dietary recommendations. - On 2500-calorie diabetic diet. Glucerna shakes 3 times a day. - trial of Marinol. DVT prophylaxis: Patient is on therapeutic treatment for DVT. Problem Qualifiers (1) Sepsis: Qualified Code: A41.01 - Sepsis due to Methicillin susceptible Staphylococcus aureus (2) DVT (deep venous thrombosis): Qualified Code: I82.431 - Deep vein thrombosis (DVT) of popliteal vein of right lower extremity, unspecified chronicity (3) DM (diabetes mellitus): Dwight Doyle MD Feb 07, 2016 16:47 Dwigth Dolye MD Feb 07, 2016 16:47
[2016-02-07] MEDS: WARFARIN SOD 2.5 MG TAB PO SCH (17:04)
[2016-02-07 20:00] VITALS: BP 118/87; PULSE 106; RESP 16; TEMP 97.5; O2SAT 98
[2016-02-07] MEDS: ATORVASTATIN 40 MG TAB PO SCH (21:13)
[2016-02-07] MEDS: INSULIN DETEMIR 100 UNITS/ML VIAL SQ SCH (21:18)
[2016-02-08] VITALS: BP 146/64; PULSE 105; RESP 16; TEMP 97.5; O2SAT 99
[2016-02-08] MEDS: ceFAZolin 1,000 MG/NS 100 ML IV SCH ×4 (03:58→15:46)
[2016-02-08 04:00] VITALS: BP 118/75; PULSE 111; RESP 15; TEMP 97; O2SAT 95
[2016-02-08] MEDS: INSULIN ASPART SUPPLEMENTAL SCALE SQ SCH ×4 (06:39→22:20)
[2016-02-08 06:42] LABS: AUTOMATED NEUTROPHIL # 10.6 TH/MM3 (1.8-7.7); BASOPHIL # 0.1 TH/MM3 (0-0.2); BASOPHIL % 0.7 % (0.0-2.0); EOSINOPHIL # 0.2 TH/MM3 (0-0.4); EOSINOPHIL % 1.7 % (0.0-4.0); HEMATOCRIT 28.5 % (39.0-51.0); LYMPH % 13.3 % (9.0-44.0); LYMPHOCYTE # 1.8 TH/MM3 (1.0-4.8); MEAN CELL VOLUME 92.8 FL (80.0-100.0); MEAN CORPUSCULAR HEMOGLOBIN 30.6 PG (27.0-34.0); MONO % 7.9 % (0.0-8.0); NEUT % 76.4 % (16.0-70.0); PLATELET COUNT 384 TH/MM3 (150-450); RED BLOOD COUNT 3.07 MIL/MM3 (4.50-5.90); RED CELL DISTRIBUTION WIDTH 17.7 % (11.6-17.2); WHITE BLOOD COUNT 13.9 TH/MM3 (4.0-11.0)
[2016-02-08 07:13] LABS: BICARBONATE 26.1 MEQ/L (21.0-32.0); POTASSIUM 4.6 MEQ/L (3.5-5.1)
[2016-02-08 07:16] LABS: APTT (PATIENT) 47.6 SEC (24.3-30.1); INTERNATIONAL NORMALIZED RATIO 3.2 RATIO; PROTHROMBIN TIME - PATIENT 37.2 SEC (9.8-11.6)
[2016-02-08 07:28] LABS: HEMO FLAGS AUTO DIFF
[2016-02-08] MEDS: POTASSIUM CHLORIDE 10 MEQ CONTROLLED RELEASE TAB PO SCH ×2 (08:20→22:13)
[2016-02-08] MEDS: FLUCONAZOLE 100 MG TAB PO SCH (08:20)
[2016-02-08] MEDS: CALCIUM CARBONATE 500 MG CHEWABLE TAB CHEW SCH ×2 (08:20→22:13)
[2016-02-08] MEDS: SODIUM CHLORIDE 0.9% FLUSH 5 ML FLUSH FLUSH SCH ×2 (08:21→22:14)
[2016-02-08] MEDS: RIFAMPIN 150 MG CAP PO SCH ×2 (08:37→22:13)
[2016-02-08 09:00] VITALS: BP 131/83; PULSE 115; RESP 18; TEMP 98.4; O2SAT 97
[2016-02-08] MEDS: LACTATED RINGER'S 1000 ML IV SCH (11:00)
[2016-02-08 12:19] LABS: BANDS 23 % (0-6); MYELOCYTES 4 % (0-0); NEUTROPHIL # MANUAL DIFF 11.4 TH/MM3 (1.8-7.7); POLYS (SEG NEUTROPHILS) 55 % (16-70); WBC DIFF SAMPLE 100
[2016-02-08 12:20] LABS: PLATELET ESTIMATE SMEAR NORMAL (NORMAL); PLATELET MORPHOLOGY NORMAL (NORMAL); SCAN/DIFF FINAL DIFF MANUAL
[2016-02-08] MEDS: DRONABINOL 2.5 MG CAP PO SCH ×2 (12:59→15:47)
[2016-02-08] MEDS: ERTAPENEM INJ 500 MG in SODIUM CHLORIDE 0.9% INJ 100 ML IV SCH (12:59)
--- NOTE | 2016-02-08 13:01 | HHI.PR ---
Subjective Remarks Follow-up sepsis 02/07/16-patient seen and examined, no acute event overnight. Currently stable and afebrile. Denies any chest pain or shortness of breath. 02/08/16-patient seen and examined, denies any shortness of breath. Taking by mouth without any complication of nausea and vomiting. Stable Objective Vitals Vital Signs Date Time Temp Pulse Resp B/P Pulse Ox O2 Delivery O2 Flow Rate FiO2 02/08/16 09:00 98.4 115 18 131/83 97 02/08/16 04:00 97.0 111 15 118/75 95 02/08/16 00:00 97.5 105 16 146/64 99 02/07/16 20:00 97.5 106 16 118/87 98 02/07/16 16:00 97.4 105 17 115/80 97 I/O 02/07/16 02/07/16 02/07/16 02/08/16 02/08/16 02/08/16 07:00 15:00 23:00 07:00 15:00 23:00 Intake Total 480 ml 1020 ml 120 ml Output Total 650 ml 550 ml 350 ml Balance -170 ml 470 ml -230 ml Intake Oral 480 ml 1020 ml 120 ml Output Urine Total 650 ml 550 ml 350 ml # Bowel Movements 1 1 Result Diagram: 02/08/16 0551 02/08/16 0551 Objective Remarks GENERAL: NAD SKIN: Warm and dry. HEAD: Normocephalic. EYES: No scleral icterus. No injection or drainage. NECK: Supple, trachea midline. No JVD or lymphadenopathy. CARDIOVASCULAR: Regular rate and rhythm without murmurs, gallops, or rubs. RESPIRATORY: Breath sounds equal bilaterally. No accessory muscle use. GASTROINTESTINAL: Abdomen soft, non-tender, nondistended. MUSCULOSKELETAL: No cyanosis, or edema. BACK: Nontender without obvious deformity. No CVA tenderness. A/P Problem List: (1) Sepsis ICD Code: A41.9 Status: Resolved (2) UTI (urinary tract infection) ICD Code: N39.0 Status: Acute (3) Neurogenic bladder ICD Code: N31.9 Status: Chronic (4) Acute on chronic renal insufficiency ICD Code: N28.9 Status: Acute (5) Rhabdomyolysis ICD Code: M62.82 Status: Acute (6) Elevated troponin ICD Code: R79.89 Status: Acute (7) DVT (deep venous thrombosis) ICD Code: I82.409 Status: Acute (8) DM (diabetes mellitus) ICD Code: E11.9 Status: Chronic Assessment and Plan 70-year-old male with Sepsis, persistent MSSA bacteremia Suspected endocarditis despite negative CHCUHO. - continue antibiotics per ID. Ertapenem stop date 02/12. - Will need weekly CBC with differential, CMP as patient is on rifampin, CRP every week. Infected right fem pop graft - Palliative care following. - Appreciate vascular surgery assistance. No surgery at this time. - Continue antibiotics as per ID. Severe emphysematous UTI (recurrent or worsening as compared to previous CT done 09/2014) - with air in the extraperitoneal pelvis suggestive of possible developing fistula or bladder perforation. Urine cx growing E. Coli ESBL and staph aureus. - Plan is to continue Payan and antibiotics for some weeks and repeat CT in 2 weeks as usually extraperitoneal bladder perforation will heal on their own. - Appreciate infectious disease and urology assistance. - on ertapenem start date 01/12 for this infection and fluconazole 01/29. Acute metabolic encephalopathy/ Hospital delirium Improving at times. CT head 01/20 with no acute intracranial abnormality. - improving with treatment of underlying medical illnesses. - Cont ST. Severe, persistent hypokalemia _resolved continue with supplements 30 mEq by mouth twice a day Chronic urinary retention Possibly due to neurogenic bladder.Continue Payan as per urology. Urology recommends suprapubic catheter in the future as outpatient. Acute on Chronic kidney injury: Creatinine 3.55 on admission. Improved. - Continue to monitor renal function. Elevated Trop Trop 0.07, EKG w/ no acute changes. Likely secondary to worsening renal function. ECHO which showed EF 55-60%. Stress test showed " Small size, moderate severity nonreversible apical perfusion abnormality, low risk". Appreciate cardiology input. - medical management. DM type 2 Hgb A1c 8%. Glucose well controlled 02/05. - Continue sliding scale w/ Accu-Cheks. - Continue to monitor. DVT of right upper popliteal and peroneal tributary, and of right upper extremity in the brachial vein Appreciate hematology input. - INR therapeutic, heparin gtt d/c 02/05. - Will need at least 3 months AC for provoked DVT. Severe protein calorie malnutrition Appreciate dietary recommendations. - On 2500-calorie diabetic diet. Glucerna shakes 3 times a day. - trial of Marinol. DVT prophylaxis: Patient is on therapeutic treatment for DVT. Continue current care as of 02/08/16 Problem Qualifiers (1) Sepsis: Qualified Code: A41.01 - Sepsis due to Methicillin susceptible Staphylococcus aureus (2) DVT (deep venous thrombosis): Qualified Code: I82.431 - Deep vein thrombosis (DVT) of popliteal vein of right lower extremity, unspecified chronicity (3) DM (diabetes mellitus): Dwight Doyle MD Feb 08, 2016 13:01
[2016-02-08 13:30] VITALS: BP 106/61; PULSE 116; RESP 19; TEMP 99; O2SAT 97
[2016-02-08 16:00] VITALS: BP 126/70; PULSE 110; RESP 20; TEMP 98.7; O2SAT 98
[2016-02-08] MEDS: ACETAMINOPHEN/HYDROcodone 325 MG/5 MG TAB PO PRN (17:23)
[2016-02-08 20:00] VITALS: BP 135/80; PULSE 112; RESP 16; TEMP 96.2; O2SAT 97
[2016-02-08] MEDS: ATORVASTATIN 40 MG TAB PO SCH (22:13)
[2016-02-08] MEDS: INSULIN DETEMIR 100 UNITS/ML VIAL SQ SCH (22:14)
[2016-02-09] VITALS: BP 138/84; PULSE 103; RESP 16; TEMP 98.5; O2SAT 97
[2016-02-09] MEDS: ceFAZolin 1,000 MG/NS 100 ML IV SCH ×4 (03:09→15:50)
[2016-02-09 04:00] VITALS: BP 125/72; PULSE 109; RESP 16; TEMP 97.8; O2SAT 96
[2016-02-09] MEDS: INSULIN ASPART SUPPLEMENTAL SCALE SQ SCH ×4 (06:48→19:51)
[2016-02-09 07:45] LABS: APTT (PATIENT) 42.2 SEC (24.3-30.1); PROTHROMBIN TIME - PATIENT 22.6 SEC (9.8-11.6)
[2016-02-09 08:00] VITALS: BP 135/84; PULSE 106; RESP 16; TEMP 97.8; O2SAT 96
[2016-02-09] MEDS: SODIUM CHLORIDE 0.9% FLUSH 5 ML FLUSH FLUSH SCH ×2 (09:32→19:49)
[2016-02-09] MEDS: RIFAMPIN 150 MG CAP PO SCH ×2 (09:33→19:48)
[2016-02-09] MEDS: CALCIUM CARBONATE 500 MG CHEWABLE TAB CHEW SCH ×2 (09:33→19:48)
[2016-02-09] MEDS: POTASSIUM CHLORIDE 10 MEQ CONTROLLED RELEASE TAB PO SCH ×2 (09:33→19:49)
[2016-02-09] MEDS: FLUCONAZOLE 100 MG TAB PO SCH (09:33)
[2016-02-09] MEDS: LACTATED RINGER'S 1000 ML IV SCH (11:00)
--- NOTE | 2016-02-09 11:29 | HHI.PR ---
Subjective Remarks Follow-up sepsis 02/07/16-patient seen and examined, no acute event overnight. Currently stable and afebrile. Denies any chest pain or shortness of breath. 02/08/16-patient seen and examined, denies any shortness of breath. Taking by mouth without any complication of nausea and vomiting. Stable 02/09/16-patient seen and examined, stable and no complaints. Afebrile. Objective Vitals Vital Signs Date Time Temp Pulse Resp B/P Pulse Ox O2 Delivery O2 Flow Rate FiO2 02/09/16 08:00 97.8 106 16 135/84 96 02/09/16 04:00 97.8 109 16 125/72 96 02/09/16 00:00 98.5 103 16 138/84 97 02/08/16 20:00 96.2 112 16 135/80 97 02/08/16 16:00 98.7 110 20 126/70 98 02/08/16 13:30 99.0 116 19 106/61 97 I/O 02/08/16 02/08/16 02/08/16 02/09/16 02/09/16 02/09/16 06:59 14:59 22:59 06:59 14:59 22:59 Intake Total 120 ml 50 ml 340 ml 294 ml Output Total 350 ml 650 ml 700 ml Balance -230 ml 50 ml -310 ml -406 ml Intake Oral 120 ml 340 ml 120 ml IV Total 50 ml 174 ml Output Urine Total 350 ml 650 ml 700 ml # Bowel Movements 2 1 Result Diagram: 02/08/16 0551 02/08/16 0551 Objective Remarks GENERAL: NAD SKIN: Warm and dry. HEAD: Normocephalic. EYES: No scleral icterus. No injection or drainage. NECK: Supple, trachea midline. No JVD or lymphadenopathy. CARDIOVASCULAR: Regular rate and rhythm without murmurs, gallops, or rubs. RESPIRATORY: Breath sounds equal bilaterally. No accessory muscle use. GASTROINTESTINAL: Abdomen soft, non-tender, nondistended. MUSCULOSKELETAL: No cyanosis, or edema. BACK: Nontender without obvious deformity. No CVA tenderness. A/P Problem List: (1) Sepsis ICD Code: A41.9 Status: Resolved (2) UTI (urinary tract infection) ICD Code: N39.0 Status: Acute (3) Neurogenic bladder ICD Code: N31.9 Status: Chronic (4) Acute on chronic renal insufficiency ICD Code: N28.9 Status: Acute (5) Rhabdomyolysis ICD Code: M62.82 Status: Acute (6) Elevated troponin ICD Code: R79.89 Status: Acute (7) DVT (deep venous thrombosis) ICD Code: I82.409 Status: Acute (8) DM (diabetes mellitus) ICD Code: E11.9 Status: Chronic Assessment and Plan 70-year-old male with Sepsis, persistent MSSA bacteremia Suspected endocarditis despite negative CHUCHO. - continue antibiotics per ID. Ertapenem stop date 02/12. - Will need weekly CBC with differential, CMP as patient is on rifampin, CRP every week. Infected right fem pop graft - Palliative care following. - Appreciate vascular surgery assistance. No surgery at this time. - Continue antibiotics as per ID. Severe emphysematous UTI (recurrent or worsening as compared to previous CT done 09/2014) - with air in the extraperitoneal pelvis suggestive of possible developing fistula or bladder perforation. Urine cx growing E. Coli ESBL and staph aureus. - Plan is to continue Payan and antibiotics for some weeks and repeat CT in 2 weeks as usually extraperitoneal bladder perforation will heal on their own. - Appreciate infectious disease and urology assistance. - on ertapenem since 01/12 for this infection and fluconazole 01/29. Acute metabolic encephalopathy/ Hospital delirium Improving at times. CT head 01/20 with no acute intracranial abnormality. - improving with treatment of underlying medical illnesses. - Cont ST. Severe, persistent hypokalemia _resolved continue with supplements 30 mEq by mouth twice a day Chronic urinary retention Possibly due to neurogenic bladder.Continue Payan as per urology. Urology recommends suprapubic catheter in the future as outpatient. Acute on Chronic kidney injury: Creatinine 3.55 on admission. Improved. - Continue to monitor renal function. Elevated Trop Trop 0.07, EKG w/ no acute changes. Likely secondary to worsening renal function. ECHO which showed EF 55-60%. Stress test showed " Small size, moderate severity nonreversible apical perfusion abnormality, low risk". Appreciate cardiology input and continue with medical management. DM type 2 Hgb A1c 8%. Glucose well controlled 02/05. - Continue sliding scale w/ Accu-Cheks. - Continue to monitor. DVT of right upper popliteal and peroneal tributary, and of right upper extremity in the brachial vein Appreciate hematology input. - INR therapeutic, heparin gtt d/c 02/05. - Will need at least 3 months AC for provoked DVT. Severe protein calorie malnutrition Appreciate dietary recommendations. - On 2500-calorie diabetic diet. Glucerna shakes 3 times a day. - trial of Marinol. DVT prophylaxis: Patient is on therapeutic treatment for DVT. Continue current care as of 02/09/16 Problem Qualifiers (1) Sepsis: Qualified Code: A41.01 - Sepsis due to Methicillin susceptible Staphylococcus aureus (2) DVT (deep venous thrombosis): Qualified Code: I82.431 - Deep vein thrombosis (DVT) of popliteal vein of right lower extremity, unspecified chronicity (3) DM (diabetes mellitus): Dwight Doyle MD Feb 09, 2016 11:29
[2016-02-09 12:00] VITALS: BP 118/76; PULSE 113; RESP 16; TEMP 98; O2SAT 96
[2016-02-09] MEDS: ERTAPENEM INJ 500 MG in SODIUM CHLORIDE 0.9% INJ 100 ML IV SCH (12:26)
[2016-02-09] MEDS: DRONABINOL 2.5 MG CAP PO SCH ×2 (12:30→17:22)
[2016-02-09] MEDS: WARFARIN SOD 2.5 MG TAB PO SCH (15:50)
[2016-02-09 16:00] VITALS: BP 132/82; PULSE 108; RESP 16; TEMP 98.1; O2SAT 95
[2016-02-09] MEDS: ATORVASTATIN 40 MG TAB PO SCH (19:48)
[2016-02-09] MEDS: INSULIN DETEMIR 100 UNITS/ML VIAL SQ SCH (19:49)
[2016-02-09 20:00] VITALS: BP 144/82; PULSE 105; RESP 17; TEMP 99.1; O2SAT 96
[2016-02-10] VITALS: BP 132/82; PULSE 108; RESP 17; TEMP 99; O2SAT 96
[2016-02-10 04:00] VITALS: BP 103/78; PULSE 112; RESP 16; TEMP 98.7; O2SAT 96
[2016-02-10] MEDS: ceFAZolin 1,000 MG/NS 100 ML IV SCH ×4 (05:08→17:07)
[2016-02-10] MEDS: INSULIN ASPART SUPPLEMENTAL SCALE SQ SCH ×4 (05:13→22:24)
[2016-02-10 07:55] LABS: HEMATOCRIT 29.1 % (39.0-51.0); MEAN CORPUSCULAR HEMOGLOBIN 30.8 PG (27.0-34.0); MEAN CORPUSCULAR HGB CONC 33.1 % (32.0-36.0); PLATELET COUNT 404 TH/MM3 (150-450); RED BLOOD COUNT 3.13 MIL/MM3 (4.50-5.90); RED CELL DISTRIBUTION WIDTH 17.5 % (11.6-17.2); REVIEW FLAG FINAL; WHITE BLOOD COUNT 14.8 TH/MM3 (4.0-11.0)
[2016-02-10 07:56] VITALS: BP 133/87; PULSE 110; RESP 20; TEMP 97.7; O2SAT 95
[2016-02-10 08:04] LABS: INTERNATIONAL NORMALIZED RATIO 1.7 RATIO; PROTHROMBIN TIME - PATIENT 19.5 SEC (9.8-11.6)
[2016-02-10] MEDS: CALCIUM CARBONATE 500 MG CHEWABLE TAB CHEW SCH ×2 (09:06→22:22)
[2016-02-10] MEDS: FLUCONAZOLE 100 MG TAB PO SCH (09:06)
[2016-02-10] MEDS: RIFAMPIN 150 MG CAP PO SCH ×2 (09:07→22:25)
[2016-02-10] MEDS: POTASSIUM CHLORIDE 10 MEQ CONTROLLED RELEASE TAB PO SCH ×2 (09:07→22:25)
[2016-02-10] MEDS: SODIUM CHLORIDE 0.9% FLUSH 5 ML FLUSH FLUSH PRN (09:08)
[2016-02-10] MEDS: SODIUM CHLORIDE 0.9% FLUSH 5 ML FLUSH FLUSH SCH ×2 (09:08→22:26)
[2016-02-10] MEDS: ACETAMINOPHEN/HYDROcodone 325 MG/5 MG TAB PO PRN (09:35)
--- NOTE | 2016-02-10 11:05 | HHI.HCPN ---
Reason for visit a. To assist with evaluation and management of symptoms including: Encephalopathy,weakness b. To assist medical decision maker(s) with: better understanding of current medical conditions; weighing benefits/burdens of medical treatment options; making medical treatment decisions. . (Piper Steve) Subjective/Interval History Patient was seen to follow up on comfort, goals w decision maker. Still with decreased appetite/oral intake- eating 25%-50% Afebrile. Vital signs within normal limits. WBC remains slightly elevated at 14.8. Renal function cont to increase BUN 26/creatinine 3.1, GFR 20. Still w adequate urine output. Remains on rifampin, ertapenem, fluconazole. Pt seen in room, no family or visitors present. He awakens to my greeting . partially oriented, poor insight to hospitalization.Not able to tell me date/ year but refers to Shaila recently. Does not think his daughter has been in yet today. He tells me he wants to try to get out of bed more, that he needs to get stronger, that they haven't been helping him get out of bed. Explore that PT has been coming to assist with OOB, and strengthening. Following exam call to dtroxanna Luo as per our discussion last week to communicate again today RE pt conditions. VM left. . . (Piper Steve) Advance Directives Living Will: Never completed Health Care Surrogate: Never completed Durable Power of Machine Clothing Man: Never completed (Piper Steve) Objective Vital Signs Date Time Temp Pulse Resp B/P Pulse Ox O2 Delivery O2 Flow Rate FiO2 02/10/16 07:56 97.7 110 20 133/87 95 02/10/16 04:00 98.7 112 16 103/78 96 02/10/16 00:00 99.0 108 17 132/82 96 02/09/16 20:00 99.1 105 17 144/82 96 02/09/16 16:00 98.1 108 16 132/82 95 02/09/16 12:00 98.0 113 16 118/76 96 Intake & Output 02/10/16 02/10/16 07:00 19:00 Intake Total 360 ml 240 ml Output Total 700 ml Balance -340 ml 240 ml Intake Oral 360 ml 240 ml Output Urine Total 700 ml # Bowel Movements 1 2 Physical Exam CONSTITUTIONAL/GENERAL: Frail, elderly-appearing patient, alert, cooperative .no apparent distress. TUBES/LINES/DRAINS: PIV x 2/ PICC line LUE, Payan catheter-dark yellow urine CARDIOVASCULAR: Regular rate and rhythm, + murmur. Periph pulses palpable. RESPIRATORY/CHEST: Symmetric, unlabored respirations on room air. Clear to auscultation. Breath sounds equal bilaterally, no accessory muscle use GASTROINTESTINAL: Abdomen soft, flat, non-tender, nondistended. No hepato- splenomegaly, or palpable masses. Bowel sounds present. NEUROLOGICAL: Awake, cooperative. oriented times 23. Speech is mumbling, soft and difficult to understand. Poor, very limited insight into hospitalization. Cooperative, follows commands, moves all 4 extremities. PSYCHIATRIC: No obvious anxiety/depression . (Piper Steve) Diagnostic Tests Laboratory Laboratory Tests Test 02/08/16 02/08/16 02/09/16 02/10/16 05:50 05:51 06:25 05:10 Prothrombin Time 37.2 SEC 22.6 SEC 19.5 SEC (9.8-11.6) (9.8-11.6) (9.8-11.6) Prothromb Time International 3.2 RATIO 2.0 RATIO 1.7 RATIO Ratio Activated Partial 47.6 SEC 42.2 SEC 39.0 SEC Thromboplast Time (24.3-30.1) (24.3-30.1) (24.3-30.1) White Blood Count 13.9 TH/MM3 14.8 TH/MM3 (4.0-11.0) (4.0-11.0) Red Blood Count 3.07 MIL/MM3 3.13 MIL/MM3 (4.50-5.90) (4.50-5.90) Hemoglobin 9.4 GM/DL 9.6 GM/DL (13.0-17.0) (13.0-17.0) Hematocrit 28.5 % 29.1 % (39.0-51.0) (39.0-51.0) Mean Corpuscular Volume 92.8 FL 93.0 FL (80.0-100.0) (80.0-100.0) Mean Corpuscular Hemoglobin 30.6 PG 30.8 PG (27.0-34.0) (27.0-34.0) Mean Corpuscular Hemoglobin 33.0 % 33.1 % Concent (32.0-36.0) (32.0-36.0) Red Cell Distribution Width 17.7 % 17.5 % (11.6-17.2) (11.6-17.2) Platelet Count 384 TH/MM3 404 TH/MM3 (150-450) (150-450) Mean Platelet Volume 7.9 FL 8.1 FL (7.0-11.0) (7.0-11.0) Neutrophils (%) (Auto) 76.4 % (16.0-70.0) Lymphocytes (%) (Auto) 13.3 % (9.0-44.0) Monocytes (%) (Auto) 7.9 % (0.0-8.0) Eosinophils (%) (Auto) 1.7 % (0.0-4.0) Basophils (%) (Auto) 0.7 % (0.0-2.0) Neutrophils # (Auto) 10.6 TH/MM3 (1.8-7.7) Lymphocytes # (Auto) 1.8 TH/MM3 (1.0-4.8) Monocytes # (Auto) 1.1 TH/MM3 (0-0.9) Eosinophils # (Auto) 0.2 TH/MM3 (0-0.4) Basophils # (Auto) 0.1 TH/MM3 (0-0.2) CBC Comment AUTO DIFF Differential Total Cells 100 Counted Neutrophils % (Manual) 55 % (16-70) Band Neutrophils % 23 % (0-6) Lymphocytes % 10 % (9-44) Monocytes % 8 % (0-8) Neutrophils # (Manual) 11.4 TH/MM3 (1.8-7.7) Myelocytes 4 % (0-0) Differential Comment FINAL DIFF MANUAL Platelet Estimate NORMAL (NORMAL) Platelet Morphology Comment NORMAL (NORMAL) Sodium Level 140 MEQ/L (136-145) Potassium Level 4.6 MEQ/L (3.5-5.1) Chloride Level 105 MEQ/L (98-107) Carbon Dioxide Level 26.1 MEQ/L (21.0-32.0) Anion Gap 9 MEQ/L (5-15) Blood Urea Nitrogen 36 MG/DL (7-18) Creatinine 3.10 MG/DL (0.60-1.30) Estimat Glomerular Filtration 20 ML/MIN (>89) Rate Random Glucose 137 MG/DL (74-106) Calcium Level 9.0 MG/DL (8.5-10.1) (Piper Steve) Result Diagram: 02/10/16 0510 02/08/16 0551 Procedures 01/16 ultrasound-guided drainage of complex fluid around right femoral graft. (Piper Steve) Assessment and Plan Disease Oriented Problem List: (1) Sepsis (2) Acute on chronic renal insufficiency (3) UTI (urinary tract infection) (4) DM (diabetes mellitus) (5) Leukocytosis (6) DVT (deep venous thrombosis) (7) Heart murmur (8) Perivascular/Graft abcess (9) Emphysematous cystitis (10) Endocarditis Comment: Suspected endocarditis despite negative CHUCHO, concern for septic emboli (11) Neurogenic bladder (12) Hypokalemia Symptom Scale: (1) Encephalopathy (2) Pain Comment: Endorsed some pain on admission to lower extremities Pertinent Non-Medical Issues Psychosocial:originally from [place] though has lived in [place] for many years. . Retired. Has one adult daughter whom he lives with. Has 3 grandchildren who also live with him and the daughter, school-aged. He participates in their care. Active prior to this hospitalization, enjoys golf. Spiritual: Jewish, [employer] known to him has been in Legal:Patient appears to have some limited insight into conditions and options though at times seems to have fairly limited ability to weigh benefits/burdens for decision-making. His neurological status appears to wax and wane based on reports.Recommend Shared decision making involving the patient and his daughter . His daughter Puja is his only child and would be appropriate proxy per [place] statutes. Ethical issues impacting care: Important Contacts Puja Bose daughter [phone] Prognosis This patient was admitted for UTI, sepsis. Subsequently has had findings of fluid accumulation, questionable abscess around old bypass graft. Recommended for urgent surgery for removal of graft. Neurological status has waxed and waned, seems to have had an underlying old stroke. Given advanced age and recent recurrent illnesses does remain high risk for further complications and setbacks. If the patient elected not to undergo aggressive interventions such as surgeries to remove graft, etc. may be appropriate for hospice and comfort measures only if goals compatible. Code Status: No Code Plan * Legal decision makerPatient appears to have some limited insight into conditions and options though at times seems to have fairly limited ability to weigh benefits/burdens for decision-making. His neurological status appears to wax and wane based on reports. Would recommend Shared decision making involving the patient and his daughter in any decision-making to ensure full understanding of associated benefits/burdens. His daughter Puja is his only child and would be appropriate proxy per [place] statutes. * Goals02/05/16: Spoke with kev Luo at length via phone. See subjective component for additional detail. In summary: She wants to continue aggressive course if they continue to see stability or improvement --she endorses she wants to be certain that she has given him every chance to try to improve and, "does not want him to feel he has been given up on". However she is open to revisiting goals of treatment and possibly considering comfort oriented treatment if patient has additional decline in condition. In terms of a feeding tube she does not think that she would proceed with a feeding tube though is not certain at this time this would be pending other conditions at that time. 02/07/16review of goals with kev Luo. She wishes to continue aggressive course short of resuscitation through February 12 when ertapenem is due to complete. If patient has not seen significant improvement at that time she will proceed with hospice consultation and enrollment. If he has significant clinical setback prior to that time she is open to revisiting goals , but otherwise wants to continue aggressive measures until then. To continue the ertapenem until completion to feel as if she has given him a fair chance at recovery. She does elects DNR status today. She also endorses patient would NOT want a feeding tube. 02/10/16pt still w limited insight/ability to participate. wants to get OOB w PT. VM left for dtr Puja, awaiting a call back. * CODE STATUS- DNR * SYMPTOMS --Encephalopathy: Neuro status cont to wax and wane, history of old CVA based on imaging in prior records. Etio likely multifactorial --Pain- Upon admission the patient endorsed some pain to lower extremities. no specific c/o pain today. PRN morphine, Lignite available. -- malnutrition- poor appetite for weeks. est. caloric requirements per R.D. = 2700 low end. Based on recorded intake pt appears to be consuming 200-300 calories a day- was started on marinol last week ,slight improvement in PO intake, still not 2700 calories a day. * Palliative care will continue to follow during hospital course as condition evolves, to assist patient/decision-maker with understanding of medical conditions, weighing benefits/burdens of treatment options, for clarification of goals of treatment. Additionally will assist with any symptoms of palliative concern . (Piper Steve) Time Spent Total Floor Time (mins): 15 (Piper Steve) Attestation To help prompt me to consider important information that might be impacting today's encounter and assessment, information from prior notes written by myself or my colleagues may have been "brought forward" into today's note. My signature on this note, however, is an attestation that I personally performed the exam, history, and/or decision-making noted today, and, unless otherwise indicated, the interactions with patient, family, and staff as well as the review of records all occurred today. I also attest that the listed assessment and stated plan reflect my best clinical judgment today based on the combination of historical information, prior notes, and today's exam/ interactions. When time spent is documented, it refers only to time spent today by the signer, or if indicated, combined time spent today by collaborating physician/nurse practitioner. (Piper Steve) Collaborating MD Comments Chart reviewed. Case discussed with palliative care OCCUPATIONAL PSYCHOLOGIST. Above SUSIE note reviewed and I concur. . (Anselmo Rico MD) Piper Steve Feb 10, 2016 11:05 Anselmo Rico MD Mar 28, 2016 13:36
[2016-02-10] MEDS: DRONABINOL 2.5 MG CAP PO SCH ×2 (12:16→17:07)
[2016-02-10] MEDS: ERTAPENEM INJ 500 MG in SODIUM CHLORIDE 0.9% INJ 100 ML IV SCH (12:16)
--- NOTE | 2016-02-10 12:21 | HHI.PR ---
Subjective Remarks Follow-up sepsis 02/07/16-patient seen and examined, no acute event overnight. Currently stable and afebrile. Denies any chest pain or shortness of breath. 02/08/16-patient seen and examined, denies any shortness of breath. Taking by mouth without any complication of nausea and vomiting. Stable 02/09/16-patient seen and examined, stable and no complaints. Afebrile. 02/10/16-patient seen and examined, remained stable and has no complaints this morning. Denies any shortness of breath. Objective Vitals Vital Signs Date Time Temp Pulse Resp B/P Pulse Ox O2 Delivery O2 Flow Rate FiO2 02/10/16 07:56 97.7 110 20 133/87 95 02/10/16 04:00 98.7 112 16 103/78 96 02/10/16 00:00 99.0 108 17 132/82 96 02/09/16 20:00 99.1 105 17 144/82 96 02/09/16 16:00 98.1 108 16 132/82 95 I/O 02/09/16 02/09/16 02/09/16 02/10/16 02/10/16 02/10/16 07:00 15:00 23:00 07:00 15:00 23:00 Intake Total 294 ml 360 ml 320 ml 240 ml 240 ml Output Total 700 ml 500 ml 400 ml 300 ml Balance -406 ml -140 ml -80 ml -60 ml 240 ml Intake Oral 120 ml 360 ml 120 ml 240 ml 240 ml IV Total 174 ml 200 ml Output Urine Total 700 ml 500 ml 400 ml 300 ml # Bowel Movements 1 1 0 1 2 Result Diagram: 02/10/16 0510 02/08/16 0551 Objective Remarks GENERAL: NAD SKIN: Warm and dry. HEAD: Normocephalic. EYES: No scleral icterus. No injection or drainage. NECK: Supple, trachea midline. No JVD or lymphadenopathy. CARDIOVASCULAR: Regular rate and rhythm without murmurs, gallops, or rubs. RESPIRATORY: Breath sounds equal bilaterally. No accessory muscle use. GASTROINTESTINAL: Abdomen soft, non-tender, nondistended. MUSCULOSKELETAL: No cyanosis, or edema. BACK: Nontender without obvious deformity. No CVA tenderness. A/P Problem List: (1) Sepsis ICD Code: A41.9 Status: Resolved (2) UTI (urinary tract infection) ICD Code: N39.0 Status: Acute (3) Neurogenic bladder ICD Code: N31.9 Status: Chronic (4) Acute on chronic renal insufficiency ICD Code: N28.9 Status: Acute (5) Rhabdomyolysis ICD Code: M62.82 Status: Acute (6) Elevated troponin ICD Code: R79.89 Status: Acute (7) DVT (deep venous thrombosis) ICD Code: I82.409 Status: Acute (8) DM (diabetes mellitus) ICD Code: E11.9 Status: Chronic Assessment and Plan 70-year-old male with Sepsis, persistent MSSA bacteremia Suspected endocarditis despite negative CHUCHO. - continue antibiotics per ID. Ertapenem stop date 02/12. - Will need weekly CBC with differential, CMP as patient is on rifampin, CRP every week. Infected right fem pop graft - Palliative care following. - Appreciate vascular surgery assistance. No surgery at this time. - Continue antibiotics as per ID. Severe emphysematous UTI (recurrent or worsening as compared to previous CT done 09/2014) - with air in the extraperitoneal pelvis suggestive of possible developing fistula or bladder perforation. Urine cx growing E. Coli ESBL and staph aureus. - Plan is to continue Payan and antibiotics for some weeks and repeat CT in 2 weeks as usually extraperitoneal bladder perforation will heal on their own. - Appreciate infectious disease and urology assistance. - on ertapenem since 01/12 for this infection and fluconazole 01/29. Acute metabolic encephalopathy/ Hospital delirium Improving at times. CT head 01/20 with no acute intracranial abnormality. - improving with treatment of underlying medical illnesses. - Cont ST. Severe, persistent hypokalemia _resolved continue with supplements 30 mEq by mouth twice a day Chronic urinary retention Possibly due to neurogenic bladder.Continue Payan as per urology. Urology recommends suprapubic catheter in the future as outpatient. Acute on Chronic kidney injury: Creatinine 3.55 on admission. Improved. - Continue to monitor renal function. Elevated Trop Trop 0.07, EKG w/ no acute changes. Likely secondary to worsening renal function. ECHO which showed EF 55-60%. Stress test showed " Small size, moderate severity nonreversible apical perfusion abnormality, low risk". Appreciate cardiology input and continue with medical management. DM type 2 Hgb A1c 8%. Glucose well controlled 02/05. - Continue sliding scale w/ Accu-Cheks. - Continue to monitor. DVT of right upper popliteal and peroneal tributary, and of right upper extremity in the brachial vein Appreciate hematology input. - INR therapeutic, heparin gtt d/c 02/05. - Will need at least 3 months AC for provoked DVT. Severe protein calorie malnutrition Appreciate dietary recommendations. - On 2500-calorie diabetic diet. Glucerna shakes DVT prophylaxis: Patient is on therapeutic treatment for DVT. Continue current care as of 02/10/16 Problem Qualifiers (1) Sepsis: Qualified Code: A41.01 - Sepsis due to Methicillin susceptible Staphylococcus aureus (2) DVT (deep venous thrombosis): Qualified Code: I82.431 - Deep vein thrombosis (DVT) of popliteal vein of right lower extremity, unspecified chronicity (3) DM (diabetes mellitus): Dwight Doyle MD Feb 10, 2016 12:21
[2016-02-10 12:36] VITALS: BP 122/75; PULSE 114; RESP 22; TEMP 98.5; O2SAT 96
[2016-02-10 16:57] VITALS: BP 135/77; PULSE 111; RESP 20; TEMP 99.1; O2SAT 97
[2016-02-10] MEDS: WARFARIN SOD 2.5 MG TAB PO SCH (17:07)
[2016-02-10] MEDS: INSULIN DETEMIR 100 UNITS/ML VIAL SQ SCH (21:00)
[2016-02-10 22:00] VITALS: BP 140/88; PULSE 113; RESP 18; TEMP 98.3; O2SAT 96
[2016-02-10] MEDS: ATORVASTATIN 40 MG TAB PO SCH (22:26)
[2016-02-11 01:45] VITALS: BP 138/84; PULSE 117; RESP 18; TEMP 98.7; O2SAT 95
[2016-02-11] MEDS: ceFAZolin 1,000 MG/NS 100 ML IV SCH ×4 (04:27→17:05)
[2016-02-11 05:00] VITALS: BP 153/87; PULSE 120; RESP 18; TEMP 98.6; O2SAT 96
[2016-02-11 05:50] LABS: APTT (PATIENT) 36.6 SEC (24.3-30.1); INTERNATIONAL NORMALIZED RATIO 1.6 RATIO; PROTHROMBIN TIME - PATIENT 18.5 SEC (9.8-11.6)
[2016-02-11] MEDS: INSULIN ASPART SUPPLEMENTAL SCALE SQ SCH ×4 (06:03→20:49)
[2016-02-11 08:00] VITALS: BP 143/88; PULSE 113; RESP 18; TEMP 98.9; O2SAT 96
[2016-02-11] MEDS: LACTATED RINGER'S 1000 ML IV SCH (09:44)
[2016-02-11] MEDS: POTASSIUM CHLORIDE 10 MEQ CONTROLLED RELEASE TAB PO SCH ×2 (09:45→20:48)
[2016-02-11] MEDS: CALCIUM CARBONATE 500 MG CHEWABLE TAB CHEW SCH ×2 (09:45→20:49)
[2016-02-11] MEDS: SODIUM CHLORIDE 0.9% FLUSH 5 ML FLUSH FLUSH SCH ×2 (09:46→20:49)
[2016-02-11] MEDS: FLUCONAZOLE 100 MG TAB PO SCH (09:46)
[2016-02-11] MEDS: RIFAMPIN 150 MG CAP PO SCH ×2 (09:46→20:48)
[2016-02-11] MEDS: ACETAMINOPHEN/HYDROcodone 325 MG/5 MG TAB PO PRN ×3 (09:47→20:48)
[2016-02-11] MEDS: DRONABINOL 2.5 MG CAP PO SCH ×2 (11:00→16:00)
[2016-02-11 12:00] VITALS: BP 118/79; PULSE 113; RESP 18; TEMP 98.7; O2SAT 97
[2016-02-11] MEDS: ERTAPENEM INJ 500 MG in SODIUM CHLORIDE 0.9% INJ 100 ML IV SCH (12:16)
--- NOTE | 2016-02-11 13:24 | HHI.PR ---
Subjective Remarks Follow-up sepsis 02/07/16-patient seen and examined, no acute event overnight. Currently stable and afebrile. Denies any chest pain or shortness of breath. 02/08/16-patient seen and examined, denies any shortness of breath. Taking by mouth without any complication of nausea and vomiting. Stable 02/09/16-patient seen and examined, stable and no complaints. Afebrile. 02/10/16-patient seen and examined, remained stable and has no complaints this morning. Denies any shortness of breath. 02/11/16-patient seen and examined. Stated he wasn't hungry. Denies any chest pain or shortness of breath. Currently afebrile Objective Vitals Vital Signs Date Time Temp Pulse Resp B/P Pulse Ox O2 Delivery O2 Flow Rate FiO2 02/11/16 12:00 98.7 113 18 118/79 97 02/11/16 08:00 98.9 113 18 143/88 96 02/11/16 05:00 98.6 120 18 153/87 96 02/11/16 01:45 98.7 117 18 138/84 95 02/10/16 22:00 98.3 113 18 140/88 96 02/10/16 16:57 99.1 111 20 135/77 97 I/O 02/10/16 02/10/16 02/10/16 02/11/16 02/11/16 02/11/16 06:59 14:59 22:59 06:59 14:59 22:59 Intake Total 240 ml 853 ml 360 ml 240 ml Output Total 300 ml 800 ml 650 ml 675 ml Balance -60 ml 53 ml -290 ml -435 ml Intake Oral 240 ml 720 ml 360 ml 240 ml IV Total 133 ml Output Urine Total 300 ml 800 ml 650 ml 675 ml # Bowel Movements 1 3 2 1 Result Diagram: 02/10/16 0510 02/08/16 0551 Objective Remarks GENERAL: NAD SKIN: Warm and dry. HEAD: Normocephalic. EYES: No scleral icterus. No injection or drainage. NECK: Supple, trachea midline. No JVD or lymphadenopathy. CARDIOVASCULAR: Regular rate and rhythm without murmurs, gallops, or rubs. RESPIRATORY: Breath sounds equal bilaterally. No accessory muscle use. GASTROINTESTINAL: Abdomen soft, non-tender, nondistended. MUSCULOSKELETAL: No cyanosis, or edema. BACK: Nontender without obvious deformity. No CVA tenderness. A/P Problem List: (1) Sepsis ICD Code: A41.9 Status: Resolved (2) UTI (urinary tract infection) ICD Code: N39.0 Status: Acute (3) Neurogenic bladder ICD Code: N31.9 Status: Chronic (4) Acute on chronic renal insufficiency ICD Code: N28.9 Status: Acute (5) Rhabdomyolysis ICD Code: M62.82 Status: Acute (6) Elevated troponin ICD Code: R79.89 Status: Acute (7) DVT (deep venous thrombosis) ICD Code: I82.409 Status: Acute (8) DM (diabetes mellitus) ICD Code: E11.9 Status: Chronic Assessment and Plan 70-year-old male with Sepsis, persistent MSSA bacteremia Suspected endocarditis despite negative CHUCHO. - continue antibiotics per ID. Ertapenem stop date 02/12. - Will need weekly CBC with differential, CMP as patient is on rifampin, CRP every week. Infected right fem pop graft - Palliative care following. - Appreciate vascular surgery assistance. No surgery at this time. - Continue antibiotics as per ID. Severe emphysematous UTI (recurrent or worsening as compared to previous CT done 09/2014) - with air in the extraperitoneal pelvis suggestive of possible developing fistula or bladder perforation. Urine cx growing E. Coli ESBL and staph aureus. - Plan is to continue Payan and antibiotics for some weeks and repeat CT in 2 weeks as usually extraperitoneal bladder perforation will heal on their own. - Appreciate infectious disease and urology assistance. - on ertapenem since 01/12 for this infection and fluconazole 01/29. Acute metabolic encephalopathy/ Hospital delirium Improving at times. CT head 01/20 with no acute intracranial abnormality. - improving with treatment of underlying medical illnesses. - Cont ST. Severe, persistent hypokalemia _resolved continue with supplements 30 mEq by mouth twice a day Chronic urinary retention Possibly due to neurogenic bladder.Continue Payan as per urology. Urology recommends suprapubic catheter in the future as outpatient. Acute on Chronic kidney injury: Creatinine 3.55 on admission. Improved. - Continue to monitor renal function. Elevated Trop Trop 0.07, EKG w/ no acute changes. Likely secondary to worsening renal function. ECHO which showed EF 55-60%. Stress test showed " Small size, moderate severity nonreversible apical perfusion abnormality, low risk". Appreciate cardiology input and continue with medical management. DM type 2 Hgb A1c 8%. Glucose well controlled 02/05. - Continue sliding scale w/ Accu-Cheks. - Continue to monitor. DVT of right upper popliteal and peroneal tributary, and of right upper extremity in the brachial vein Appreciate hematology input. - INR therapeutic, heparin gtt d/c 02/05. - Will need at least 3 months AC for provoked DVT. Severe protein calorie malnutrition Appreciate dietary recommendations. - On 2500-calorie diabetic diet. Glucerna shakes DVT prophylaxis: Patient is on therapeutic treatment for DVT. Continue current care as of 02/11/16 Problem Qualifiers (1) Sepsis: Qualified Code: A41.01 - Sepsis due to Methicillin susceptible Staphylococcus aureus (2) DVT (deep venous thrombosis): Qualified Code: I82.431 - Deep vein thrombosis (DVT) of popliteal vein of right lower extremity, unspecified chronicity (3) DM (diabetes mellitus): Dwight Doyle MD Feb 11, 2016 13:24
[2016-02-11 16:00] VITALS: BP 124/68; PULSE 112; RESP 18; TEMP 98.4; O2SAT 96
[2016-02-11] MEDS ORDERED: WARFARIN SOD 2 MG TAB PO SCH (16:00)
--- NOTE | 2016-02-11 16:27 | HHI.HCPN ---
Reason for visit a. To assist with evaluation and management of symptoms including: Encephalopathy,weakness b. To assist medical decision maker(s) with: better understanding of current medical conditions; weighing benefits/burdens of medical treatment options; making medical treatment decisions. . (Piper Steve) Subjective/Interval History Patient was seen to follow up on comfort, goals w decision maker. I received a call from daughter done prior to my arrival to unit to examine patient. Review with her current assessments based on EMR as well as my interaction with patient yesterday. She informs that she has had ongoing discussions with case management, she also saw patient yesterday evening and talk with him more about his conditions. She shares that he indicated he wanted to try rehabilitation and try to eat better and to try to get stronger, and that he did not want to go to hospice. She shares that she has to "honor his request and if he wants to try to get stronger she has to let him at least try". She does understand his overall prognosis and that he remains high risk for further decline. She wishes to pursue rehabilitation at this time though indicates if he has any significant setbacks or does not improve there she would be open to transitioning to hospice at that time. She asserts that the patient would not want a feeding tube if he continues to not eat, and if his renal function continued to decline to the point of requiring dialysis that they would not proceed with dialysis. She would also like to take DNR status with patient to facility and requests community DNR (palliative Ciaran signed this DNR and placed in chart for her to sign when she is in again) Still with decreased appetite/oral intake- eating 25%-50% Afebrile. Vital signs within normal limits. no new labs or imaging. Still w adequate urine output. Remains on rifampin, ertapenem, fluconazole. Pt seen in room, no family or visitors present. He is initially sleeping but arouses to my exam. He is oriented to person. Denies pain or shortness of breath. Tells me he was nauseous earlier today but is not currently. Ask him about his appetite he tells me its "okay ". I note an uneaten lunch tray at his bedside(it is about 3 hours after lunch) she does not tell me why he didn't eat it. Ask him about his conversations with his daughter regarding rehabilitation, he tells me he's been in the hospital for nearly 20 days now and all they keep telling him his "rehabilitation, rehabilitation, rehabilitation". He asserts that he just wants to get out of the hospital and get better. Gently explore that he has been in the hospital 31 days and that is certainly a long time, and that PT is continuing to try to help him get to rehabilitation, while he continues to receive medical treatment for his illnesses. Explore that he is planned to possibly transfer to rehabilitation later this week. Ask him what his understanding of/conversations about hospice have been he tells me that he does not need to go to hospice. He does not have good insight into conditions. He becomes drowsy during conversation, advise I will follow-up with him again in the coming days. . . (Piper Steve) Advance Directives Living Will: Never completed Health Care Surrogate: Never completed Durable Power of Lace Weaver: Never completed (Piper Steve) Objective Vital Signs Date Time Temp Pulse Resp B/P Pulse Ox O2 Delivery O2 Flow Rate FiO2 02/11/16 12:00 98.7 113 18 118/79 97 02/11/16 08:00 98.9 113 18 143/88 96 02/11/16 05:00 98.6 120 18 153/87 96 02/11/16 01:45 98.7 117 18 138/84 95 02/10/16 22:00 98.3 113 18 140/88 96 02/10/16 16:57 99.1 111 20 135/77 97 Intake & Output 02/11/16 02/11/16 07:00 19:00 Intake Total 240 ml Output Total 1325 ml Balance -1085 ml Intake Oral 240 ml Output Urine Total 1325 ml # Bowel Movements 1 Physical Exam CONSTITUTIONAL/GENERAL: Frail, elderly-appearing patient, alert, cooperative .no apparent distress. TUBES/LINES/DRAINS: PIV x 2/ PICC line LUE, Payan catheter CARDIOVASCULAR: Regular rate and rhythm, + murmur. Periph pulses palpable. RESPIRATORY/CHEST: Symmetric, unlabored respirations on room air. Clear to auscultation. Breath sounds equal bilaterally, no accessory muscle use GASTROINTESTINAL: Abdomen soft, flat, non-tender, nondistended. No hepato- splenomegaly, or palpable masses. Bowel sounds present. NEUROLOGICAL: Awake, cooperative. oriented times 23. Speech is soft . Poor , very limited insight into hospitalization. Cooperative, follows commands, moves all 4 extremities. PSYCHIATRIC: No obvious anxiety/depression . (Piper Steve) Diagnostic Tests Laboratory Laboratory Tests Test 02/09/16 02/10/16 02/11/16 06:25 05:10 04:43 Prothrombin Time 22.6 SEC 19.5 SEC 18.5 SEC (9.8-11.6) (9.8-11.6) (9.8-11.6) Prothromb Time International 2.0 RATIO 1.7 RATIO 1.6 RATIO Ratio Activated Partial 42.2 SEC 39.0 SEC 36.6 SEC Thromboplast Time (24.3-30.1) (24.3-30.1) (24.3-30.1) White Blood Count 14.8 TH/MM3 (4.0-11.0) Red Blood Count 3.13 MIL/MM3 (4.50-5.90) Hemoglobin 9.6 GM/DL (13.0-17.0) Hematocrit 29.1 % (39.0-51.0) Mean Corpuscular Volume 93.0 FL (80.0-100.0) Mean Corpuscular Hemoglobin 30.8 PG (27.0-34.0) Mean Corpuscular Hemoglobin 33.1 % Concent (32.0-36.0) Red Cell Distribution Width 17.5 % (11.6-17.2) Platelet Count 404 TH/MM3 (150-450) Mean Platelet Volume 8.1 FL (7.0-11.0) (Piper Steve) Result Diagram: 02/10/16 0510 02/08/16 0551 Imaging Last Impressions Chest X-Ray 02/01/16 0000 Signed Impressions: Service Date/Time: Monday, February 01, 2016 10:18 - CONCLUSION: 1. Interval placement of left-sided PICC line. 2. No acute cardiopulmonary disease. Jarvis Pathak MD Lower Extremity Ultrasound 01/24/16 0426 Signed Impressions: Service Date/Time: Sunday, January 24, 2016 11:48 - CONCLUSION: 1. Significant decrease in the perianastomotic fluid collection Shon Mancilla MD Abdomen/Pelvis CT 01/23/16 0600 Signed Impressions: Service Date/Time: January 09:35 - CONCLUSION: 1. 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 2. Diverticulosis without evidence of diverticulitis. 3. Small bilateral effusions Shon Mancilla MD Head CT 01/21/16 0000 Signed Impressions: Service Date/Time: Thursday, January 21, 2016 10:58 - CONCLUSION: 1. No acute intracranial abnormality is identified. 2. Chronic changes include mild cerebral atrophy and periventricular white matter low attenuation characteristic of chronic microvascular ischemia. Additionally, there is encephalomalacia in the right frontal lobe likely related to prior ischemia. 3. 9 mm extra-axial ossification in the right parietal high convexity may represent a calcified meningioma. Jayce Peck MD Upper Extremity Ultrasound 01/20/16 0000 Signed Impressions: Service Date/Time: Wednesday, January 20, 2016 12:05 - CONCLUSION: Venous mapping as detailed above. John Mills Jr., MD Lower Extremity CT 01/19/16 0000 Signed Impressions: Service Date/Time: Wednesday, January 20, 2016 08:25 - CONCLUSION: 1. Abnormal cortical thickening involving tibia and fibula. This may reflect osteomyelitis. If there is necessity for further evaluation contrast-enhanced MRI is recommended. Shon Mancilla MD Needle Aspiration Ultrasound 01/17/16 0000 Signed Impressions: Service Date/Time: Sunday, January 17, 2016 16:03 - CONCLUSION: Uncomplicated ultrasound guided aspiration. Carroll Arteaga MD Cervical Spine CT 01/15/16 0000 Signed Impressions: Service Date/Time: Friday, January 15, 2016 15:51 - CONCLUSION: No abscess observed. John Mills Jr., MD Upper Extremity CT 01/14/16 0000 Signed Impressions: Service Date/Time: Friday, January 15, 2016 16:08 - CONCLUSION: Small olecranon spur. Intact bony structures. No evidence of fluid collection or abscess formation Arian Stone MD Elbow X-Ray 01/14/16 0000 Signed Impressions: Service Date/Time: Thursday, January 14, 2016 13:05 - CONCLUSION: Possible soft tissue swelling overlying the olecranon. Otherwise negative exam Arian Stone MD Chest CT 01/14/16 0000 Signed Impressions: Service Date/Time: Thursday, January 14, 2016 15:37 - CONCLUSION: Right lower lobe interstitial change with a peripheral wedge shaped triangular area of parenchymal consolidation and associated small pleural effusion. Arian Stone MD Myocardial Perfusion Scan Nuc Med 01/13/16 0000 Signed Impressions: Service Date/Time: Wednesday, January 13, 2016 10:52 - CONCLUSION: Small size, moderate severity nonreversible apical perfusion abnormality. RISK CATEGORY: Low (<1%% Annual Mortality Rate) Jayce Ham MD Shoulder X-Ray 01/12/16 0000 Signed Impressions: Service Date/Time: Tuesday, January 12, 2016 09:24 - CONCLUSION: 1. No acute fracture or subluxation of the left shoulder. 2. Probably an old fracture of the distal clavicle, healed. 3. 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 Jayce Ng MD Knee X-Ray 01/11/16 1555 Signed Impressions: Service Date/Time: Monday, January 11, 2016 16:43 - CONCLUSION: Small joint effusion. K. Jose Blackburn MD Procedures 01/16 ultrasound-guided drainage of complex fluid around right femoral graft. (Piper Steve) Assessment and Plan Disease Oriented Problem List: (1) Sepsis (2) Acute on chronic renal insufficiency (3) UTI (urinary tract infection) (4) DM (diabetes mellitus) (5) Leukocytosis (6) DVT (deep venous thrombosis) (7) Heart murmur (8) Perivascular/Graft abcess (9) Emphysematous cystitis (10) Endocarditis Comment: Suspected endocarditis despite negative CHUCHO, concern for septic emboli (11) Neurogenic bladder (12) Hypokalemia Symptom Scale: (1) Encephalopathy (2) Pain Comment: Endorsed some pain on admission to lower extremities Pertinent Non-Medical Issues Psychosocial:originally from [place] though has lived in [place] for many years. . Retired. Has one adult daughter whom he lives with. Has 3 grandchildren who also live with him and the daughter, school-aged. He participates in their care. Active prior to this hospitalization, enjoys golf. 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 His neurological status appears to wax and wane based on reports.Recommend Shared decision making involving the patient and his daughter . His daughter Puja is his only child and would be appropriate proxy per [place] statutes. Ethical issues impacting care: Important Contacts Puja Bose daughter [phone] Prognosis This patient was admitted for UTI, sepsis. Subsequently has had findings of fluid accumulation, questionable abscess around old bypass graft. Recommended for urgent surgery for removal of graft. Neurological status has waxed and waned, seems to have had an underlying old stroke. Given advanced age and recent recurrent illnesses does remain high risk for further complications and setbacks. If the patient elected not to undergo aggressive interventions such as surgeries to remove graft, etc. may be appropriate for hospice and comfort measures only if goals compatible. Code Status: No Code Plan * Legal decision makerPatient appears to have some limited insight into conditions and options though at times seems to have fairly limited ability to weigh benefits/burdens for decision-making. His neurological status appears to wax and wane based on reports. Would recommend Shared decision making involving the patient and his daughter in any decision-making to ensure full understanding of associated benefits/burdens. His daughter Puja is his only child and would be appropriate proxy per [place] statutes. * Goals02/05/16: Spoke with kev Luo at length via phone. See subjective component for additional detail. In summary: She wants to continue aggressive course if they continue to see stability or improvement --she endorses she wants to be certain that she has given him every chance to try to improve and, "does not want him to feel he has been given up on". However she is open to revisiting goals of treatment and possibly considering comfort oriented treatment if patient has additional decline in condition. In terms of a feeding tube she does not think that she would proceed with a feeding tube though is not certain at this time this would be pending other conditions at that time. 02/07/16review of goals with kev Luo. She wishes to continue aggressive course short of resuscitation through February 12 when ertapenem is due to complete. If patient has not seen significant improvement at that time she will proceed with hospice consultation and enrollment. If he has significant clinical setback prior to that time she is open to revisiting goals , but otherwise wants to continue aggressive measures until then. To continue the ertapenem until completion to feel as if she has given him a fair chance at recovery. She does elects DNR status today. She also endorses patient would NOT want a feeding tube. 02/11/16pt still w limited insight/ability to participate. Received callback from daughter Puja, she wishes to pursue aggressive rehabilitation and aggressive interventions at this time based on her conversations with patient yesterday evening. He indicated to her that he was not ready for hospice and that he wanted to try to eat and get stronger rehabilitate. She has to "honor his request and if he wants to try to get stronger she has to let him at least try". She is open to hospice if he suffers subsequent setbacks and decline, would not want dialysis if his renal function continues to worsen, would not want feeding tube if his oral intake decreased. Requests community DNR, signed DNR placed in front of chart for her to sign when she is next here in the hospital. * CODE STATUS- DNR * SYMPTOMS --Encephalopathy: Neuro status cont to wax and wane, history of old CVA based on imaging in prior records. Etio likely multifactorial --Pain- Upon admission the patient endorsed some pain to lower extremities. no specific c/o pain today. PRN morphine, [place] available. -- malnutrition- poor appetite for weeks. est. caloric requirements per R.D. = 2700 low end. Based on recorded intake pt appears to be consuming 200-300 calories a day- was started on marinol last week slight improvement in appetite /intake over past few days, eating 25-50% of meals. * Palliative care will continue to follow during hospital course as condition evolves, to assist patient/decision-maker with understanding of medical conditions, weighing benefits/burdens of treatment options, for clarification of goals of treatment. Additionally will assist with any symptoms of palliative concern . (Piper Steve) Time Spent Total Floor Time (mins): 25 >50% Counseling/Coord of Care: Yes (d/w charge nurse) (Piper Steve) Attestation To help prompt me to consider important information that might be impacting today's encounter and assessment, information from prior notes written by myself or my colleagues may have been "brought forward" into today's note. My signature on this note, however, is an attestation that I personally performed the exam, history, and/or decision-making noted today, and, unless otherwise indicated, the interactions with patient, family, and staff as well as the review of records all occurred today. I also attest that the listed assessment and stated plan reflect my best clinical judgment today based on the combination of historical information, prior notes, and today's exam/ interactions. When time spent is documented, it refers only to time spent today by the signer, or if indicated, combined time spent today by collaborating physician/nurse practitioner. (Piper Steve) Collaborating MD Comments Chart reviewed. Case discussed with palliative care TREE SAPPER. Above TREE SAPPER note reviewed and I concur. . (Anselmo Rico MD) Piper Steve Feb 11, 2016 16:27 Anselmo Rico MD Mar 28, 2016 13:37
[2016-02-11] MEDS: WARFARIN SOD 2.5 MG TAB PO SCH (17:05)
[2016-02-11] MEDS: ATORVASTATIN 40 MG TAB PO SCH (20:48)
[2016-02-11] MEDS: INSULIN DETEMIR 100 UNITS/ML VIAL SQ SCH (20:49)
[2016-02-11 22:00] VITALS: BP 105/71; PULSE 105; RESP 18; TEMP 98; O2SAT 97
[2016-02-12 01:00] VITALS: BP 146/75; PULSE 110; RESP 18; TEMP 97.9; O2SAT 96
[2016-02-12 04:30] VITALS: BP 133/74; PULSE 104; RESP 18; TEMP 97.3; O2SAT 96
[2016-02-12] MEDS: ceFAZolin 1,000 MG/NS 100 ML IV SCH ×4 (05:13→17:21)
[2016-02-12] MEDS: INSULIN ASPART SUPPLEMENTAL SCALE SQ SCH ×4 (05:23→21:59)
[2016-02-12 05:54] LABS: APTT (PATIENT) 37.3 SEC (24.3-30.1); PROTHROMBIN TIME - PATIENT 22.7 SEC (9.8-11.6)
[2016-02-12 08:00] VITALS: BP 130/81; PULSE 110; RESP 18; TEMP 97.1; O2SAT 97
[2016-02-12] MEDS: POTASSIUM CHLORIDE 10 MEQ CONTROLLED RELEASE TAB PO SCH ×2 (08:27→21:59)
[2016-02-12] MEDS: RIFAMPIN 150 MG CAP PO SCH ×2 (08:27→21:59)
[2016-02-12] MEDS: FLUCONAZOLE 100 MG TAB PO SCH (08:27)
[2016-02-12] MEDS: SODIUM CHLORIDE 0.9% FLUSH 5 ML FLUSH FLUSH SCH ×2 (08:27→22:00)
[2016-02-12] MEDS: CALCIUM CARBONATE 500 MG CHEWABLE TAB CHEW SCH ×2 (08:27→21:59)
[2016-02-12] MEDS: ACETAMINOPHEN/HYDROcodone 325 MG/5 MG TAB PO PRN ×2 (08:34→17:45)
[2016-02-12] MEDS: DRONABINOL 2.5 MG CAP PO SCH ×2 (11:00→17:20)
[2016-02-12] MEDS: LACTATED RINGER'S 1000 ML IV SCH (11:00)
[2016-02-12 12:00] VITALS: BP 142/76; PULSE 100; RESP 16; TEMP 97.3; O2SAT 98
[2016-02-12] MEDS: ERTAPENEM INJ 500 MG in SODIUM CHLORIDE 0.9% INJ 100 ML IV SCH (12:16)
[2016-02-12 16:00] VITALS: BP 158/73; PULSE 109; RESP 18; TEMP 97; O2SAT 96
--- NOTE | 2016-02-12 16:10 | HHI.PR ---
Subjective Remarks Follow-up sepsis 02/07/16-patient seen and examined, no acute event overnight. Currently stable and afebrile. Denies any chest pain or shortness of breath. 02/08/16-patient seen and examined, denies any shortness of breath. Taking by mouth without any complication of nausea and vomiting. Stable 02/09/16-patient seen and examined, stable and no complaints. Afebrile. 02/10/16-patient seen and examined, remained stable and has no complaints this morning. Denies any shortness of breath. 02/11/16-patient seen and examined. Stated he wasn't hungry. Denies any chest pain or shortness of breath. Currently afebrile 02/12/16-patient seen and examined; no change. Vitals stable. Family wants hospice consulted Objective Vitals Vital Signs Date Time Temp Pulse Resp B/P Pulse Ox O2 Delivery O2 Flow Rate FiO2 02/12/16 12:00 97.3 100 16 142/76 98 02/12/16 08:00 97.1 110 18 130/81 97 02/12/16 04:30 97.3 104 18 133/74 96 02/12/16 01:00 97.9 110 18 146/75 96 02/11/16 22:00 98.0 105 18 105/71 97 I/O 02/11/16 02/11/16 02/11/16 02/12/16 02/12/16 02/12/16 07:00 15:00 23:00 07:00 15:00 23:00 Intake Total 240 ml 480 ml 100 ml Output Total 675 ml 625 ml 450 ml 350 ml Balance -435 ml -145 ml -450 ml -350 ml 100 ml Intake Oral 240 ml 480 ml IV Total 100 ml Output Urine Total 675 ml 625 ml 450 ml 350 ml # Bowel Movements 1 Result Diagram: 02/10/16 0510 02/08/16 0551 Objective Remarks GENERAL: NAD SKIN: Warm and dry. HEAD: Normocephalic. EYES: No scleral icterus. No injection or drainage. NECK: Supple, trachea midline. No JVD or lymphadenopathy. CARDIOVASCULAR: Regular rate and rhythm without murmurs, gallops, or rubs. RESPIRATORY: Breath sounds equal bilaterally. No accessory muscle use. GASTROINTESTINAL: Abdomen soft, non-tender, nondistended. MUSCULOSKELETAL: No cyanosis, or edema. BACK: Nontender without obvious deformity. No CVA tenderness. A/P Problem List: (1) Sepsis ICD Code: A41.9 Status: Resolved (2) UTI (urinary tract infection) ICD Code: N39.0 Status: Acute (3) Neurogenic bladder ICD Code: N31.9 Status: Chronic (4) Acute on chronic renal insufficiency ICD Code: N28.9 Status: Acute (5) Rhabdomyolysis ICD Code: M62.82 Status: Acute (6) Elevated troponin ICD Code: R79.89 Status: Acute (7) DVT (deep venous thrombosis) ICD Code: I82.409 Status: Acute (8) DM (diabetes mellitus) ICD Code: E11.9 Status: Chronic Assessment and Plan 70-year-old male with Sepsis, persistent MSSA bacteremia Suspected endocarditis despite negative CHUCHO. - continue antibiotics per ID. Ertapenem stop date 02/12. - Will need weekly CBC with differential, CMP as patient is on rifampin, CRP every week. Will consult hospice Infected right fem pop graft - Palliative care following. - Appreciate vascular surgery assistance. No surgery at this time. - Continue antibiotics as per ID. Severe emphysematous UTI (recurrent or worsening as compared to previous CT done 09/2014) - with air in the extraperitoneal pelvis suggestive of possible developing fistula or bladder perforation. Urine cx growing E. Coli ESBL and staph aureus. - Plan is to continue Payan and antibiotics for some weeks and repeat CT in 2 weeks as usually extraperitoneal bladder perforation will heal on their own. - Appreciate infectious disease and urology assistance. - on ertapenem since 01/12 for this infection and fluconazole 01/29. Acute metabolic encephalopathy/ Hospital delirium Improving at times. CT head 01/20 with no acute intracranial abnormality. - improving with treatment of underlying medical illnesses. Severe, persistent hypokalemia _resolved continue with supplements 30 mEq by mouth twice a day Chronic urinary retention Possibly due to neurogenic bladder.Continue Payan as per urology. Urology recommends suprapubic catheter in the future as outpatient. Acute on Chronic kidney injury: Creatinine 3.55 on admission. Improved. - Continue to monitor renal function. Elevated Trop Trop 0.07, EKG w/ no acute changes. Likely secondary to worsening renal function. ECHO which showed EF 55-60%. Stress test showed " Small size, moderate severity nonreversible apical perfusion abnormality, low risk". Appreciate cardiology input and continue with medical management. DM type 2 Hgb A1c 8%. Glucose well controlled 02/05. - Continue sliding scale w/ Accu-Cheks. - Continue to monitor. DVT of right upper popliteal and peroneal tributary, and of right upper extremity in the brachial vein Appreciate hematology input. - INR therapeutic, heparin gtt d/c 02/05. - Will need at least 3 months AC for provoked DVT. Severe protein calorie malnutrition Appreciate dietary recommendations. - On 2500-calorie diabetic diet. Glucerna shakes DVT prophylaxis: Patient is on therapeutic treatment for DVT. Continue current care as of 02/12/16 Problem Qualifiers (1) Sepsis: Qualified Code: A41.01 - Sepsis due to Methicillin susceptible Staphylococcus aureus (2) DVT (deep venous thrombosis): Qualified Code: I82.431 - Deep vein thrombosis (DVT) of popliteal vein of right lower extremity, unspecified chronicity (3) DM (diabetes mellitus): Dwight Doyle MD Feb 12, 2016 16:10
[2016-02-12] MEDS: WARFARIN SOD 2.5 MG TAB PO SCH (17:20)
[2016-02-12 20:15] VITALS: BP 127/74; PULSE 104; RESP 18; TEMP 98.3; O2SAT 95
[2016-02-12] MEDS: INSULIN DETEMIR 100 UNITS/ML VIAL SQ SCH (21:59)
[2016-02-12] MEDS: ATORVASTATIN 40 MG TAB PO SCH (21:59)
[2016-02-13 01:00] VITALS: BP 136/84; PULSE 102; RESP 18; TEMP 98.5; O2SAT 97
[2016-02-13 04:00] VITALS: BP 127/70; PULSE 104; RESP 18; TEMP 97.5; O2SAT 97
[2016-02-13] MEDS: ceFAZolin 1,000 MG/NS 100 ML IV SCH ×2 (04:30)
[2016-02-13] MEDS: INSULIN ASPART SUPPLEMENTAL SCALE SQ SCH ×2 (05:32→11:44)
[2016-02-13 07:00] LABS: HEMATOCRIT 27.5 % (39.0-51.0); MEAN CORPUSCULAR HEMOGLOBIN 30.8 PG (27.0-34.0); MEAN CORPUSCULAR HGB CONC 33.1 % (32.0-36.0); PLATELET COUNT 373 TH/MM3 (150-450); RED BLOOD COUNT 2.95 MIL/MM3 (4.50-5.90); RED CELL DISTRIBUTION WIDTH 17.5 % (11.6-17.2); REVIEW FLAG FINAL; WHITE BLOOD COUNT 13.3 TH/MM3 (4.0-11.0)
[2016-02-13 07:05] LABS: APTT (PATIENT) 41.3 SEC (24.3-30.1); INTERNATIONAL NORMALIZED RATIO 2.6 RATIO; PROTHROMBIN TIME - PATIENT 29.9 SEC (9.8-11.6)
[2016-02-13 08:00] VITALS: BP 130/76; PULSE 104; RESP 20; TEMP 97.6; O2SAT 97
[2016-02-13] MEDS: POTASSIUM CHLORIDE 10 MEQ CONTROLLED RELEASE TAB PO SCH (09:00)
[2016-02-13] MEDS: CALCIUM CARBONATE 500 MG CHEWABLE TAB CHEW SCH (09:01)
[2016-02-13] MEDS: FLUCONAZOLE 100 MG TAB PO SCH (09:01)
[2016-02-13] MEDS: RIFAMPIN 150 MG CAP PO SCH (09:01)
[2016-02-13] MEDS: SODIUM CHLORIDE 0.9% FLUSH 5 ML FLUSH FLUSH SCH (09:02)
[2016-02-13] MEDS: DRONABINOL 2.5 MG CAP PO SCH (11:00)
[2016-02-13] MEDS: LACTATED RINGER'S 1000 ML IV SCH (11:00)
--- NOTE | 2016-02-13 11:12 | HHI.PR ---
Subjective Remarks Follow-up sepsis 02/07/16-patient seen and examined, no acute event overnight. Currently stable and afebrile. Denies any chest pain or shortness of breath. 02/08/16-patient seen and examined, denies any shortness of breath. Taking by mouth without any complication of nausea and vomiting. Stable 02/09/16-patient seen and examined, stable and no complaints. Afebrile. 02/10/16-patient seen and examined, remained stable and has no complaints this morning. Denies any shortness of breath. 02/11/16-patient seen and examined. Stated he wasn't hungry. Denies any chest pain or shortness of breath. Currently afebrile 02/12/16-patient seen and examined; no change. Vitals stable. Family wants hospice consulted 02/13/16-patient seen and examined;no acute event overnight; appears pleasantly confused but stable Objective Vitals Vital Signs Date Time Temp Pulse Resp B/P Pulse Ox O2 Delivery O2 Flow Rate FiO2 02/13/16 08:00 97.6 104 20 130/76 97 02/13/16 04:00 97.5 104 18 127/70 97 02/13/16 01:00 98.5 102 18 136/84 97 02/12/16 20:15 98.3 104 18 127/74 95 02/12/16 16:00 97.0 109 18 158/73 96 02/12/16 12:00 97.3 100 16 142/76 98 I/O 02/12/16 02/12/16 02/12/16 02/13/16 02/13/16 02/13/16 07:00 15:00 23:00 07:00 15:00 23:00 Intake Total 100 ml 720 ml Output Total 350 ml 450 ml 300 ml Balance -350 ml 100 ml 270 ml -300 ml Intake Oral 720 ml IV Total 100 ml Output Urine Total 350 ml 450 ml 300 ml Result Diagram: 02/13/16529 Objective Remarks GENERAL: NAD SKIN: Warm and dry. HEAD: Normocephalic. EYES: No scleral icterus. No injection or drainage. NECK: Supple, trachea midline. No JVD or lymphadenopathy. CARDIOVASCULAR: Regular rate and rhythm without murmurs, gallops, or rubs. RESPIRATORY: Breath sounds equal bilaterally. No accessory muscle use. GASTROINTESTINAL: Abdomen soft, non-tender, nondistended. MUSCULOSKELETAL: No cyanosis, or edema. BACK: Nontender without obvious deformity. No CVA tenderness. A/P Problem List: (1) Sepsis ICD Code: A41.9 Status: Resolved (2) UTI (urinary tract infection) ICD Code: N39.0 Status: Acute (3) Neurogenic bladder ICD Code: N31.9 Status: Chronic (4) Acute on chronic renal insufficiency ICD Code: N28.9 Status: Acute (5) Rhabdomyolysis ICD Code: M62.82 Status: Acute (6) Elevated troponin ICD Code: R79.89 Status: Acute (7) DVT (deep venous thrombosis) ICD Code: I82.409 Status: Acute (8) DM (diabetes mellitus) ICD Code: E11.9 Status: Chronic Assessment and Plan 70-year-old male with Sepsis, persistent MSSA bacteremia Suspected endocarditis despite negative CHUCHO. - continue antibiotics per ID. Ertapenem stop date 02/12. - Will need weekly CBC with differential, CMP as patient is on rifampin, CRP every week. Hospice consultation pending Infected right fem pop graft - Palliative care following. - Appreciate vascular surgery assistance. No surgery at this time. - Continue antibiotics as per ID. Severe emphysematous UTI (recurrent or worsening as compared to previous CT done 09/2014) - with air in the extraperitoneal pelvis suggestive of possible developing fistula or bladder perforation. Urine cx growing E. Coli ESBL and staph aureus. - Plan is to continue Payan and antibiotics for some weeks and repeat CT in 2 weeks as usually extraperitoneal bladder perforation will heal on their own. - Appreciate infectious disease and urology assistance. - on ertapenem since 01/12 for this infection and fluconazole 01/29. Acute metabolic encephalopathy/ Hospital delirium Improving at times. CT head 01/20 with no acute intracranial abnormality. - improving with treatment of underlying medical illnesses. Severe, persistent hypokalemia _resolved continue with supplements 30 mEq by mouth twice a day Chronic urinary retention Possibly due to neurogenic bladder.Continue Payan as per urology. Urology recommends suprapubic catheter in the future as outpatient. Acute on Chronic kidney injury: Creatinine 3.55 on admission. Improved. - Continue to monitor renal function. Elevated Trop Trop 0.07, EKG w/ no acute changes. Likely secondary to worsening renal function. ECHO which showed EF 55-60%. Stress test showed " Small size, moderate severity nonreversible apical perfusion abnormality, low risk". Appreciate cardiology input and continue with medical management. DM type 2 Hgb A1c 8%. Glucose well controlled 02/05. - Continue sliding scale w/ Accu-Cheks. - Continue to monitor. DVT of right upper popliteal and peroneal tributary, and of right upper extremity in the brachial vein Appreciate hematology input. - INR therapeutic, heparin gtt d/c 02/05. - Will need at least 3 months AC for provoked DVT. Severe protein calorie malnutrition Appreciate dietary recommendations. - On 2500-calorie diabetic diet. Glucerna shakes DVT prophylaxis: Patient is on therapeutic treatment for DVT. Continue current care as of 02/12/16 Problem Qualifiers (1) Sepsis: Qualified Code: A41.01 - Sepsis due to Methicillin susceptible Staphylococcus aureus (2) DVT (deep venous thrombosis): Qualified Code: I82.431 - Deep vein thrombosis (DVT) of popliteal vein of right lower extremity, unspecified chronicity (3) DM (diabetes mellitus): Dwight Doyle MD Feb 13, 2016 11:11
[2016-02-13 11:30] VITALS: BP 134/82; PULSE 108; RESP 20; TEMP 97.6; O2SAT 97
[2016-02-13] MEDS ORDERED: DRON2.5 PO (12:13)
[2016-02-13] MEDS ORDERED: LEVEMIR SQ (12:13)
[2016-02-13] MEDS ORDERED: COUM2.5T PO (12:15)
--- NOTE | 2016-02-13 12:18 | HHI.DS ---
Discharge Summary Admission Date Jan 11, 2016 at 18:48 Discharge Date: Feb 13, 2016 Admitting Diagnosis severe sepsis, ADONIS, respiratory alkalosis, hyperglycemia, DVT (1) Sepsis ICD Code: A41.9 (2) UTI (urinary tract infection) ICD Code: N39.0 (3) Neurogenic bladder ICD Code: N31.9 (4) Acute on chronic renal insufficiency ICD Code: N28.9 (5) Rhabdomyolysis ICD Code: M62.82 (6) Elevated troponin ICD Code: R79.89 (7) DVT (deep venous thrombosis) ICD Code: I82.409 (8) DM (diabetes mellitus) ICD Code: E11.9 Procedures none Brief History - From Admission This is a 70-year-old male with a PMH of HTN, DM, Hyperlipidemia and Neurogenic Bladder w/ Self Catheterization who was brought to the ER by EMS for c/o fever and elevated BS of 500 at home. States he checked his blood sugar at approx 7am and took 80 units of Insulin. Denies cough, nausea, vomiting, abdominal pain or diarrhea. Reports some RLE swelling which is chronic, however increased in the last 2-3 days, some right knee discomfort. Per EMS, pt was found lying on his bathroom floor by neighbors yesterday, did not seek medical attention at that time. Temp 102.0 en route to ER. On arrival, BP 151/121, HR 125, O2 sat 96% on RA, Temp 100.9. WBC 27.6 with elevated neutrophil count. Creatinine 3.55, producing 1.44 on 09/28/14. CPK 573. Troponin 0.07. U/a positive for UTI. EKG with no acute findings. CXR w/ no acute findings. Right Knee X-ray w/ small joint effusion. RLE Doppler w/ non-occlusive DVT of popliteal and peroneal tributary, tubelike graft/stent in right groin with surrounding hypoechoic region, possibly thrombosed aneurysm versus fluid around regional vasculature, CTA Pelvis recommended, however unable to proceed due to renal function. Of note, pt w/ recent hospitalization to for Sepsis, pt unable to provide many details but states his WBC count was 35 at that time. S/ p Blood/Urine Cultures x2, Vanc/Zosyn in ER. CBC/BMP: 02/13/16 0530 Significant Findings Laboratory Tests Test 02/11/16 02/12/16 02/13/16 04:43 05:31 05:30 Prothrombin Time 18.5 SEC 22.7 SEC 29.9 SEC (9.8-11.6) (9.8-11.6) (9.8-11.6) Activated Partial 36.6 SEC 37.3 SEC 41.3 SEC Thromboplast Time (24.3-30.1) (24.3-30.1) (24.3-30.1) White Blood Count 13.3 TH/MM3 (4.0-11.0) Red Blood Count 2.95 MIL/MM3 (4.50-5.90) Hemoglobin 9.1 GM/DL (13.0-17.0) Hematocrit 27.5 % (39.0-51.0) Red Cell Distribution Width 17.5 % (11.6-17.2) PE at Discharge GENERAL: NAD SKIN: Warm and dry. HEAD: Normocephalic. EYES: No scleral icterus. No injection or drainage. NECK: Supple, trachea midline. No JVD or lymphadenopathy. CARDIOVASCULAR: Regular rate and rhythm without murmurs, gallops, or rubs. RESPIRATORY: Breath sounds equal bilaterally. No accessory muscle use. GASTROINTESTINAL: Abdomen soft, non-tender, nondistended. MUSCULOSKELETAL: No cyanosis, or edema. BACK: Nontender without obvious deformity. No CVA tenderness. Hospital Course Sepsis, persistent MSSA bacteremia Suspected endocarditis despite negative CHUCHO. - continue antibiotics per ID. Ertapenem stop date 02/12. - Will need weekly CBC with differential, CMP as patient is on rifampin, CRP every week. Hospice consultation pending Infected right fem pop graft - Palliative care following. - Appreciate vascular surgery assistance. No surgery at this time. - Continue antibiotics as per ID. Severe emphysematous UTI (recurrent or worsening as compared to previous CT done 09/2014) - with air in the extraperitoneal pelvis suggestive of possible developing fistula or bladder perforation. Urine cx growing E. Coli ESBL and staph aureus. - Plan is to continue Payan and antibiotics for some weeks and repeat CT in 2 weeks as usually extraperitoneal bladder perforation will heal on their own. - Appreciate infectious disease and urology assistance. - on ertapenem since 01/12 for this infection and fluconazole 01/29. Acute metabolic encephalopathy/ Hospital delirium Improving at times. CT head 01/20 with no acute intracranial abnormality. - improving with treatment of underlying medical illnesses. Severe, persistent hypokalemia _resolved continue with supplements 30 mEq by mouth twice a day Chronic urinary retention Possibly due to neurogenic bladder.Continue Payan as per urology. Urology recommends suprapubic catheter in the future as outpatient. Acute on Chronic kidney injury: Creatinine 3.55 on admission. Improved. - Continue to monitor renal function. Elevated Trop Trop 0.07, EKG w/ no acute changes. Likely secondary to worsening renal function. ECHO which showed EF 55-60%. Stress test showed " Small size, moderate severity nonreversible apical perfusion abnormality, low risk". Appreciate cardiology input and continue with medical management. DM type 2 Hgb A1c 8%. Glucose well controlled 02/05. - Continue sliding scale w/ Accu-Cheks. - Continue to monitor. DVT of right upper popliteal and peroneal tributary, and of right upper extremity in the brachial vein Appreciate hematology input. - INR therapeutic, heparin gtt d/c 02/05. - Will need at least 3 months AC for provoked DVT. Severe protein calorie malnutrition Appreciate dietary recommendations. - On 2500-calorie diabetic diet. Glucerna shakes DVT prophylaxis: Patient is on therapeutic treatment for DVT. Pt Condition on Discharge: Guarded Discharge Disposition: Hospice/Med Facility Discharge Time: > 30 minutes Discharge Instructions DIET: Follow Instructions for: Heart Healthy Diet Activities you can perform: Regular-No Restrictions Follow up Referrals: Appointment for Follow Up - 3 Weeks with [facility] Follow-up New Medications: Dronabinol (Marinol) 2.5 Mg Cap 2.5 MG PO BID@11,16 Build Immunity #60 CAP Fluconazole (Diflucan) 100 Mg Tab 100 MG PO DAILY fungal cystitis Days 10 Ref 0 TAB Insulin Detemir Inj (Levemir Inj) 1,000 unit/ 10 ML Vial 5 UNITS SQ HS Blood Sugar Management #100 INJECTION Rifampin (Rifampin) 150 Mg Cap 150 MG PO Q12HR Prosthetic graft infection Days 30 CAP Warfarin (Coumadin) 2.5 Mg Tab 2.5 MG PO DAILY@16 Prevent Blood Clot #30 TAB Dwight Doyle MD Feb 13, 2016 12:17
[2016-02-13] MEDS: ACETAMINOPHEN/HYDROcodone 325 MG/5 MG TAB PO PRN (15:25)
[2016-02-13 15:30] VITALS: BP 134/78; PULSE 114; RESP 20; TEMP 97.4; O2SAT 97
== END 2016-02-13 16:50 | disposition hospice, inpatient (51) | DRG 314 ==
LOC: NEPA 15:39 → NEDA 18:48 → HOCA 22:52
PROVIDERS: ADMIT Hospitalist; ATTEND Hospitalist
PROC: B246ZZ4 Ultrasonography of Right and Left Heart, Transesophageal (ICD-10-PCS; principal; 2016-01-15)
PROC: 0Y973ZZ Drainage of Right Femoral Region, Percutaneous Approach (ICD-10-PCS; 2016-01-17)
PROC: 02HV33Z Insertion of Infusion Device into Superior Vena Cava, Percutaneous Approach (ICD-10-PCS; 2016-02-03)
DX: T82.7XXA Infection and inflammatory reaction due to other cardiac and vascular devices, implants and grafts, initial encounter (principal); A41.01 Sepsis due to Methicillin susceptible Staphylococcus aureus; N18.4 Chronic kidney disease, stage 4 (severe); I76 Septic arterial embolism; E43 Unspecified severe protein-calorie malnutrition; G93.41 Metabolic encephalopathy; J18.9 Pneumonia, unspecified organism; E87.4 Mixed disorder of acid-base balance; N17.9 Acute kidney failure, unspecified; I38 Endocarditis, valve unspecified; I82.431 Acute embolism and thrombosis of right popliteal vein; R65.20 Severe sepsis without septic shock; T83.511A Infection and inflammatory reaction due to indwelling urethral catheter, initial encounter; M62.82 Rhabdomyolysis; I82.621 Acute embolism and thrombosis of deep veins of right upper extremity; Z68.1 Body mass index [BMI] 19.9 or less, adult; N30.81 Other cystitis with hematuria; E11.22 Type 2 diabetes mellitus with diabetic chronic kidney disease; N31.9 Neuromuscular dysfunction of bladder, unspecified; E11.65 Type 2 diabetes mellitus with hyperglycemia; I12.9 Hypertensive chronic kidney disease with stage 1 through stage 4 chronic kidney disease, or unspecified chronic kidney disease; E87.6 Hypokalemia; E78.5 Hyperlipidemia, unspecified; N32.89 Other specified disorders of bladder; K21.9 Gastro-esophageal reflux disease without esophagitis; M70.32 Other bursitis of elbow, left elbow; E56.1 Deficiency of vitamin K; I73.9 Peripheral vascular disease, unspecified; E86.0 Dehydration; G93.89 Other specified disorders of brain; F17.210 Nicotine dependence, cigarettes, uncomplicated; B19.20 Unspecified viral hepatitis C without hepatic coma; B96.20 Unspecified Escherichia coli [E. coli] as the cause of diseases classified elsewhere; Y83.2 Surgical operation with anastomosis, bypass or graft as the cause of abnormal reaction of the patient, or of later complication, without mention of misadventure at the time of the procedure; Z16.12 Extended spectrum beta lactamase (ESBL) resistance; Z79.4 Long term (current) use of insulin; Z86.73 Personal history of transient ischemic attack (TIA), and cerebral infarction without residual deficits; Z87.440 Personal history of urinary (tract) infections; Z66 Do not resuscitate; Z51.5 Encounter for palliative care
CPT/HCPCS: 10160; 36569; 36600; 51702; 70450; 71010; 71250; 72125; 73030; 73070; 73200; 73564; 73700; 74176; 76937; 76942; 78452; 80048; 80053; 80074; 81001; 82010; 82550; 82552; 82607; 82805; 82948; 83036; 83605; 83690; 83735; 83880; 84132; 84155; 84443; 84484; 85007; 85025; 85027; 85384; 85610; 85652; 85730; 86038; 86140; 86403; 86592; 87040; 87070; 87077; 87086; 87147; 87186; 87205; 93005; 93017; 93306; 93312; 93320; 93325; 93923; 93965; 93970; 93971; 93990; 95819; 96361; 96365; 96367; A9502; J0690; J0692; J0712; J1335; J1642; J1644; J1815; J2270; J2405; J2543; J2785; J3370; J3480; J7030; J7050; Q0167; Q9963